=== PATIENT | male | born 1955 | race Hispanic/Latino ===

== ENCOUNTER 2020-09-03 16:52 | Inpatient (IN) | payer OTHER ==
[~2020-09-03] VITALS: Ht 167.6 cm; Wt 77.1 kg
[2020-09-03 17:48] VITALS: BP 147/87
[2020-09-03] MEDS ORDERED: LISI20TA21 PO (18:17)
[2020-09-03] MEDS ORDERED: METF500T17 PO (18:17)
[2020-09-03] MEDS ORDERED: GLUCAGEN IV STA (18:44)
--- NOTE | 2020-09-03 18:59 | PCM.HP ---
History of Present Illness History of Present Illness Pt Reji Garibay is a 64 y.o. male w/ PMH: HTN, HLD, DM II that was transferred from an ED in [place] for PNA and suspected COVID infection. Pt is niuean speaking only so history obtained from scientist engineer. [facility] from ED in [place] called stating pt was hypoxic on arrival to the ED at 81% of RA with positive COVID infection. Pt requested to be transferred to a hospital closer to home. Case was discussed with CM and administration agreed to transfer. Upon arrival, it was noted that pt was never tested for COVID infection although CXR showed PNA, he was presumed positive. Pt reports c/o: anorexia and weakness x 3 week duration. He works at a [employer] in [place] and denies any sick contacts. He denies N/V, diarrhea, or constipation. He also denies fever, SOB, or cough. No additional complaints at this time. Past Medical History Cardiac: HTN, Other (HLD) Endocrine: Diabetes Past Surgical History: Appendectomy Past Social History Smoke: No Alcohol: none Drugs: None Lives: with Family Review of Systems Constitutional: Weakness, Malaise; No: Fever, Chills, Sweats Eyes: No: Redness ENT: No: Nose discharge, Nose congestion Respiratory: No: Cough, Dry, Shortness of breath, SOB with excertion, Wheezing Cardiovascular: No: Chest Pain, Palpitations, Edema, Lt Headedness Gastrointestinal: Other (anorexia); No: Nausea, Vomiting, Abdominal Pain, Di arrhea, Constipation, Melena, Hematochezia Genitourinary: No Dysuria, No Frequency, No Incontinence, No Hematuria Musculoskeletal: No: back pain Skin: No: Rash, Lesions, Bruising Neurological: Weakness Allergies: Coded Allergies: No Known Allergies (Unverified , 09/03/20) Scheduled Lisinopril (Lisinopril), 1 TAB PO BID, (Reported) Metformin Hcl (Metformin Hcl), 1,000 MG PO BID, (Reported) VTE VTE Risk Total Score: 2 VTE Risk Score VTE Risk: Score 0-1 = Low Risk (Aggressive mobilization; early ambulation; no VTE prophylaxis required) Score 2: Moderate Risk (Intermittent/Pneumatic Compression Device OR Lovenox/Heparin/Coumadin) Score 3-4: High Risk (Intermittent/Pneumatic Compression Device AND Lovenox/Heparin/Coumadin) Score > or =5: Highest Risk (Intermittent/Pneumatic Compression Device AND Lovenox/Heparin/Coumadin) VTE VTE Present on Admission: No Currently receiving anticoagul: No VTE Risk Total Score: 2 Exam Vital Signs Vital Signs Date Time Temp Pulse Resp B/P (MAP) Pulse Ox O2 Delivery O2 Flow Rate FiO2 09/03/20 18:17 Nasal Cannula 2.00 09/03/20 17:48 101.1 103 19 147/87 (107) 88 General Appearance: Alert, Oriented X3, Cooperative, No acute distress HEENT: Atraumatic, Other (dry mucous membranes) Respiratory: Clear to auscultation, Normal air movement Cardiovascular: Regular rate, Normal S1, Normal S2 Abdominal: Normal bowel sounds, Soft, No tenderness Extremities: No clubbing, No cyanosis, No edema, Normal pulses Skin: No rash, No breakdown, No lesions Neuro: Normal gait, Normal speech Psych/Mental Status: Mental status NL, Mood NL Assessment/Plan Assessment/Plan Assessment/Plan Pt Reji Garibay is a 64 y.o. male w/ PMH: HTN, HLD, DM II that was transferred from an ED in [place] for PNA and suspected COVID infection. Upon arrival, it was noted that pt was never tested for COVID infection although CXR showed PNA, he was presumed positive. 1) B/l PNA -Will start on Rocephin and Azithromycin. 2) Suspected COVID -PCR test ordered; awaiting results -Will hold off on starting antiviral and steroids at this time until results come back 3) HTN -Will resume home dose of Lisinopril 20 mg 4) DM II -ISS -Will check HgbA1c in am -Will hold home dose of Metformin 5) HLD -Unknown home medications. -Will check lipid panel, and will start statin if needed. 6) Diet-ADA diet 7) DVT prophylaxis-Heparin 8) Code status-Full Code -Pt was seen and examined at bedside. All labs and imaging personally reviewed b y me. -Cased discussed w/ ED attending. YARELY GRIGGS DO Sep 03, 2020 18:59
[2020-09-03] MEDS ORDERED: MORPHINE SULFATE IV PRN (19:00)
[2020-09-03] MEDS ORDERED: DEXTROSE 50%-WATER SYRINGE IV PRN (19:00)
[2020-09-03] MEDS ORDERED: D5W 1000ML 1,000 ML IV PRN (19:00)
[2020-09-03] MEDS ORDERED: TYLENOL PO PRN (19:00)
[2020-09-03] MEDS ORDERED: ROCEPHIN 1,000 MG in NS 100ML 100 ML IV SCH (19:30)
[2020-09-03] MEDS ORDERED: ROCEPHIN ONE (19:35)
[2020-09-03] MEDS ORDERED: NS 100ML 100 ML IV ONE (19:35)
[2020-09-03] MEDS: NS 1000ML 1,000 ML IV SCH (19:39)
[2020-09-03 20:15] VITALS: BP 126/77
[2020-09-03] MEDS ORDERED: ZITHROMAX 500 MG in NS 250ML 250 ML IV SCH (20:30)
[2020-09-03] MEDS: HUMALOG SQ SCH (21:10)
[2020-09-03] MEDS: HEPARIN SQ SCH (21:11)
[2020-09-03] MEDS: ZESTRIL PO SCH (21:12)
[2020-09-04] VITALS (8 sets, daily range): BP systolic 114–139; BP diastolic 65–78
[2020-09-04 04:56] LABS: BASOPHIL % 0.2 % (0.0-0.2); LYMPHOCYTES # 0.79 10^3/uL1 (1.0-4.8); LYMPHOCYTES % 9.7 % (24.0-44.0); MONOCYTES # 0.5 10^3/uL (0.3-0.8); NEUTROPHIL # 6.8 10^3/uL (1.8-7.7); NEUTROPHILS % 83.5 % (41.0-85.0); PLATELET COUNT 185 10^3/uL (150-400)
[2020-09-04 05:35] LABS: CALCIUM 8.3 mg/dL (8.4-10.5)
[2020-09-04] MEDS: HEPARIN SQ SCH ×2 (05:59→14:00)
[2020-09-04] MEDS: HUMALOG SQ SCH ×4 (07:30→21:00)
[2020-09-04] MEDS: VITAMIN C PO SCH ×2 (08:22→20:22)
[2020-09-04] MEDS: ZESTRIL PO SCH ×2 (08:22→20:23)
[2020-09-04] MEDS ORDERED: ZINC SULFATE PO SCH (09:00)
[2020-09-04] MEDS: NS 1000ML 1,000 ML IV SCH ×2 (09:20→22:40)
--- NOTE | 2020-09-04 13:56 | NUR ---
Oral temperature of 100.5 reported to provider. No new orders at this time.
--- NOTE | 2020-09-04 16:46 | DIREP ---
PROCEDURE:CHEST 2 VIEWS COMPARISON:[facility], CR, XRAY CHEST SINGLE VW, 09/03/2020, 12:11 PM. INDICATIONS:Hypoxemia FINDINGS: LUNGS/PLEURA:Ill-defined opacities within the bilateral hemithoraces do appear to be slightly worsening when compared to the previous study, particularly within the peripheral aspect of the left aggie thorax. Findings would suggest multifocal infectious or inflammatory pneumonitis. There is no sizable pleural effusion. No pneumothorax. VASCULATURE:Normal. Unremarkable pulmonary vasculature. CARDIAC:Normal. No cardiac silhouette abnormality or cardiomegaly. MEDIASTINUM:Normal. No visible mass or adenopathy. BONES:Degenerative changes of the spine. OTHER:Negative. CONCLUSION: 1. Slightly worsening airspace disease would suggest multifocal infectious or inflammatory pneumonitis, including potential COVID-19 pneumonitis. Dictated by: Surya Tinoco M.D. On 09/04/2020 at 04:43 PM
[2020-09-04] MEDS ORDERED: MORPHINE SULFATE IV PRN (19:28)
--- NOTE | 2020-09-04 20:04 | PRM.PN ---
Subjective Subjective Date: Sep 04, 2020 Time: 20:04 Subjective Pt s/e this AM at bedside. overall he is doing well. He denies any symptoms of shob, cp, abdominal pain, n/v/d/c, LH/dizziness, palpitations, or other acute symptoms. However, despite lack of symptoms, he is in fact hypoxemic, and qu ickly dipped down to 87% on RA when his O2 was stopped during our discussion. He denies any recent fever/chills, swelling, orthopnea, smoking history, chest pain, environmental or occupational exposures, or other chronic symptoms. Review of Systems Other Review of systems including general, HEENT, neck, cardiopulmonary, GI, , neuro-musculoskeletal, hematologic, oncologic, endocrinology, infectious disease, dermatologic and psychiatric were reviewed with the patient and are negative unless otherwise noted in the HPI. Allergies: Coded Allergies: No Known Allergies (Unverified , 09/03/20) Scheduled Lisinopril (Lisinopril), 1 TAB PO BID, (Reported) Metformin Hcl (Metformin Hcl), 1,000 MG PO BID, (Reported) Objective Vitals and I/O Vital Sign - Last 24 Hours 09/04/20 09/04/20 09/04/20 09/04/20 08:04 08:22 08:23 08:41 Temp 100.1 99.2 Pulse 82 88 Resp 18 34 B/P (MAP) 115/67 (83) 115/67 130/71 (90) Pulse Ox 95 90 O2 Delivery Nasal Canula Nasal Cannula O2 Flow Rate 6.00 6.00 09/04/20 09/04/20 09/04/20 09/04/20 09:20 09:50 09:52 09:54 Temp 99.4 Pulse 88 88 Resp 22 32 32 Pulse Ox 90 97 O2 Delivery Nasal Cannula Nasal Cannula Nasal Canula O2 Flow Rate 5.00 5.00 5.00 FiO2 40 09/04/20 09/04/20 09/04/20 09/04/20 10:53 12:16 13:55 15:31 Temp 98.8 98.3 100.5 98.3 Pulse 81 Resp 17 B/P (MAP) 124/67 (86) Pulse Ox 94 93 92 93 O2 Delivery Nasal Canula Nasal Canula Nasal Canula O2 Flow Rate 3.00 4.00 3.00 09/04/20 17:03 Temp 97.9 Pulse 72 Resp 18 B/P (MAP) 114/65 (81) Pulse Ox 95 General: Alert, Oriented X3, Cooperative, No acute distress HEENT: Atraumatic, Other (dry mucous membranes; poor dentition ) Neck: Supple Lungs: Clear to auscultation, Normal air movement Heart: Regular rate, Normal S1, Normal S2 Abdomen: Normal bowel sounds, Soft, No tenderness Extremities: No clubbing, No cyanosis, No edema, Normal pulses Skin: No rashes, No breakdown, No significant lesion Neuro: Normal speech, Normal tone Psych/Mental Status: Mental status NL, Mood NL All Results(Lab/Rad) Laboratory Tests Test 09/03/20 21:02 09/04/20 04:47 09/04/20 05:59 09/04/20 07:15 Bedside Glucose 164 120 123 White Blood Count 8.1 10^3/uL Red Blood Count 4.89 10^6/uL Hemoglobin 14.2 g/dL Hematocrit 40.7 % Mean Corpuscular Volume 83.2 fL Mean Corpuscular Hemoglobin 29.0 pg Mean Corpuscular Hemoglobin Concent 34.9 g/dL Red Cell Distribution Width 12.0 % Platelet Count 185 10^3/uL Mean Platelet Volume 9.6 fL Neutrophils (%) (Auto) 83.5 % Lymphocytes (%) (Auto) 9.7 % Monocytes (%) (Auto) 6.0 % Neutrophils # (Auto) 6.8 10^3/uL Lymphocytes # (Auto) 0.79 10^3/uL1 Monocytes # (Auto) 0.5 10^3/uL Absolute Immature Granulocyte (auto 0.05 10^3 u/L Absolute Eosinophils (auto) 0.0 10^3/uL Immature Granulocytes % 0.60 % Eosinophils % 0.0 % Basophils % 0.2 % Basophils # 0.0 10^3/uL Sodium Level 132 mmol/L Potassium Level 3.6 mmol/L Chloride Level 97.0 mmol/L Carbon Dioxide Level 26.0 mmol/L Anion Gap 12.6 Blood Urea Nitrogen 21 mg/dL Creatinine 1.18 mg/dL Estimated GFR () 75.2 Est GFR (CKD-EPI)(Non-Afr Swiss) 62.1 BUN/Creatinine Ratio 17.0 Glucose Level 118 mg/dL Hemoglobin A1c 8.0 % Calcium Level 8.3 mg/dL Total Bilirubin 0.7 mg/dL Aspartate Amino Transf (AST/SGOT) 55 U/L Alanine Aminotransferase (ALT/SGPT) 37 U/L Alkaline Phosphatase 40 U/L Total Protein 6.5 g/dL Albumin 2.3 g/dL Globulin 4.2 Albumin/Globulin Ratio 0.547 Triglycerides Level 65 mg/dL Cholesterol Level 76 mg/dL LDL Cholesterol, Calculated 26.0 VLDL Cholesterol, Calculated 13.0 HDL Cholesterol 37 mg/dL Cholesterol Ratio (LDL/HDL) 0.7 Cholesterol/HDL Ratio [id number] Test 09/04/20 11:37 09/04/20 12:22 09/04/20 16:36 Bedside Glucose 159 131 D-Dimer 1.85 mg/L Troponin I < 0.02 ng/mL Pro-B-Type Natriuretic Peptide 97 pg/mL Current Medications Medications (Trade) Dose Ordered Sig/Adrianna Route PRN Reason Start Time Stop Time Status Last Admin Dose Admin Acetaminophen (Tylenol) 325 mg Q4H PRN PO PAIN 1 - 3 09/03/20 19:00 10/03/20 18:59 Morphine Sulfate (Morphine Sulfate) 2 mg Q4H PRN IV PAIN 4 - 6 09/03/20 19:00 09/04/20 19:28 DC Insulin Human Lispro (Humalog) 0-140 0 Units 141-200... ACHS SQ 09/03/20 21:00 10/03/20 20:59 09/04/20 11:30 Dextrose 1,000 ml @ 100 mls/hr Q10H PRN IV HYPOGLYCEMIA 09/03/20 19:00 10/03/20 18:59 Dextrose (Dextrose 50%-Water Syringe) 25 ml STAT PRN IV HYPOGLYCEMIA 09/03/20 19:00 10/03/20 18:59 Glucagon (Glucagen) 1 mg STAT STAT IV 09/03/20 18:44 09/03/20 18:56 DC Heparin Sodium (Porcine) (Heparin) 5,000 unit Q8HR SQ 09/03/20 22:00 10/03/20 21:59 09/04/20 14:00 Lisinopril (Zestril) 20 mg BID PO 09/03/20 21:00 10/03/20 20:59 09/04/20 08:22 Azithromycin 500 mg/Sodium Chloride 250 ml @ 175 mls/hr Q24HRS IV 09/03/20 20:30 09/04/20 08:15 DC 09/03/20 21:11 Ceftriaxone Sodium 1000 mg/ Sodium Chloride 100 ml @ 100 mls/hr Q24HRS IV 09/03/20 19:30 09/04/20 08:15 DC 09/03/20 19:39 Sodium Chloride 1,000 ml @ 75 mls/hr [id number] IV 09/03/20 20:00 10/03/20 19:59 09/04/20 09:20 Ceftriaxone Sodium (Rocephin) 1,000 mg STK-MED ONCE .ROUTE 09/03/20 19:35 09/03/20 19:35 DC Sodium Chloride 100 ml @ ud STK-MED ONCE IV 09/03/20 19:35 09/03/20 19:36 DC Zinc Sulfate (Zinc Sulfate) 220 mg DAILY PO 09/04/20 09:00 10/04/20 08:59 09/04/20 08:22 Ascorbic Acid (Vitamin C) 500 mg BID PO 09/04/20 09:00 10/04/20 08:59 09/04/20 08:22 Morphine Sulfate (Morphine Sulfate) 2 mg Q4H PRN IV PAIN 4 - 6 09/04/20 19:28 10/03/20 18:59 Assessment/Plan Assessment/Plan Assessment/Plan Pt Reji Garibay is a 64 y.o. male w/ PMH: HTN, HLD, DM II that was transferred from an ED in [place] for PNA and suspected COVID infection. Upon arrival, it was noted that pt was never tested for COVID infection although CXR showed PNA, he was presumed positive. # Acute Hypoxemic Respiratory Failure # Likely Community Acquired PNA - Pt transferred for "covid" but is actually covid negative - CXR showing multifocal infiltrates, but these are somewhat non-specific - procal obtained Sep 04 is elevated at 0.7, indicating possible bacterial infection - rocephin/azithro stopped for some reason; will restart - there was concern for PE as a cause for his hypoxemia and D-dimer was elevated at 1.85; will obtain CTA Chest to rule out PE - will also start therapeutic Lovenox until VTE can be definitively ruled out. # HTN - Lisinopril 20 mg # DM II - SSI - hold home anti-hyperglycemics 5) HLD - cholesterol and LDL on lipid panel are actually very low - will not start statin; Pt can resume home medications on discharge VTE ppx: Therapeutic Lovenox GI ppx: n/a Diet: diabetic CODE: forensic toxicologist spent: > 35 min spent in chart review, patient evaluation, coordination of care, and documentation BAMBI KAUR MD Sep 04, 2020 20:04
[2020-09-04] MEDS: LOVENOX SQ SCH ×2 (20:21→20:32)
--- NOTE | 2020-09-04 22:14 | NUR ---
CRITICAL LAB PROCAL 0.74
[2020-09-05] MEDS ORDERED: ZITHROMAX PO ONE
[2020-09-05] MEDS: ROCEPHIN 2,000 MG in NS 100ML 100 ML IV SCH
[2020-09-05] MEDS ORDERED: ROCEPHIN ONE (00:25)
[2020-09-05] MEDS ORDERED: NS 100ML 100 ML IV ONE (00:26)
[2020-09-05 00:50] VITALS: BP 137/84
--- NOTE | 2020-09-05 01:02 | NUR ---
LOW SPO2 Pt found to be lying in bed with SPO2 of 82% on 3.5L NC. RN increased O2 to 6L NC. Pt appears to be in no apparent respiratory distress. Lung sounds clear and all other vital signs WNL. RN sat pt upright in high fowlers and encouraged pt to cough and deep breathe. RN placed pt on venti mask but that showed no improvement in oxygen saturation. Respiratory called. RN placed pt on 15L NRB and pt now showing improvement in o2 saturation. Respiratory currently at bedside. Pt SPO2 96% on 15L NRB. Encouraged pt to cough and deep breathe and to notify staff if he is experiencing any difficulty breathing. Will continue to monitor.
[2020-09-05 04:40] LABS: BASOPHIL % 0.1 % (0.0-0.2); EOSINOPHIL % 0.1 % (0.0-5.0); LYMPHOCYTES # 0.89 10^3/uL1 (1.0-4.8); LYMPHOCYTES % 10.2 % (24.0-44.0); MEAN CORP HGB 29.4 pg (26-34); MONOCYTES # 0.5 10^3/uL (0.3-0.8); MONOCYTES % 5.5 % (5.0-12.0); NEUTROPHIL # 7.3 10^3/uL (1.8-7.7); NEUTROPHILS % 83.5 % (41.0-85.0); PLATELET COUNT 226 10^3/uL (150-400)
[2020-09-05 04:58] LABS: CALCIUM 8.1 mg/dL (8.4-10.5); CARBON DIOXIDE 24.3 mmol/L (20.0-32)
[2020-09-05 05:13] VITALS: BP 129/76
[2020-09-05] MEDS: HUMALOG SQ SCH ×4 (07:30→20:28)
[2020-09-05] MEDS: LOVENOX SQ SCH (08:20)
[2020-09-05] MEDS: ZESTRIL PO SCH ×2 (08:20→20:19)
--- NOTE | 2020-09-05 08:28 | DIREP ---
PROCEDURE:CTA CHEST COMPARISON:None. INDICATIONS:evaluate for PE TECHNIQUE:Post contrast axial images through the chest with multiplanar MIP/3D reconstructions. FINDINGS: PULMONARY ARTERIES:Adequately opacified. No filling defect to suggest pulmonary embolus. LUNGS:Diffuse patchy peripheral ground-glass airspace opacities. PLEURA:Normal. CARDIAC:Normal size. Coronary atherosclerotic change. THORACIC AORTA:Mild atherosclerotic cyst. MEDIASTINUM:Mild lymphadenopathy. THYROID:Normal. BONES:Mild degenerative changes. OTHER:No additional findings. CONCLUSION:1. No CT evidence of pulmonary embolus. 2. Patchy diffuse airspace opacities, consistent with multi lobar pneumonia to include from atypical organisms such as COVID-19. Dictated by: Austin Morris M.D. on 09/05/2020 at 08:25 AM
[2020-09-05 08:58] VITALS: BP 146/84
[2020-09-05] MEDS: NS 1000ML 1,000 ML IV SCH (12:26)
--- NOTE | 2020-09-05 12:50 | DIET.OP ---
Nutrition Asmt/Malnutrit 2-17 Actual Date of Review: Sep 05, 2020 Nutritional Screening: Nutritional Screening (mild fat and muscle loss noted at admission assessment ) Diagnosis: Acute Hypoxemic Respiratory Failure Pertinent Medical Hx/Surgical: HTN, HLD, T2DM Subjective Information: telehealth assessement - pt reported anorexia and weakness x 3 weeks. Denies abdominal pain, n/v/d/c. Denies any recent wt loss. A1c is 8. BG well controlled today at 99-104 mg/dl. Current Diet Order/Nutrition S: 1800 elkin ADA Patient /S.O: Not Indicated Pertinent Meds Current Medications Medications (Trade) Dose Ordered Sig/Adrianna PRN Reason Start Time Stop Time Status Last Admin Acetaminophen (Tylenol) 325 mg Q4H PRN PAIN 1 - 3 09/03/20 19:00 10/03/20 18:59 Acetaminophen (Tylenol) 1,000 mg Q6H PRN PAIN 1 - 3 09/05/20 12:00 10/05/20 11:59 Albuterol Sulfate (Ventolin Hfa) 2 inh RTQ4 09/05/20 13:00 10/05/20 12:59 Ascorbic Acid (Vitamin C) 1,000 mg BID 09/05/20 21:00 10/05/20 20:59 Azithromycin (Zithromax) 250 mg DAILY 09/05/20 19:00 09/09/20 18:59 Ceftriaxone Sodium 2000 mg/ Sodium Chloride 100 ml @ 100 mls/hr Q24HRS 09/05/20 00:00 10/05/20 00:00 09/05/20 00:00 Dextrose 1,000 ml @ 100 mls/hr Q10H PRN HYPOGLYCEMIA 09/03/20 19:00 10/03/20 18:59 Dextrose (Dextrose 50%-Water Syringe) 25 ml STAT PRN HYPOGLYCEMIA 09/03/20 19:00 10/03/20 18:59 Enoxaparin Sodium (Lovenox) 40 mg DAILY 09/06/20 09:00 10/04/20 20:29 Insulin Human Lispro (Humalog) 0-140 0 Units 141-200... ACHS 09/03/20 21:00 10/03/20 20:59 09/04/20 21:00 Lisinopril (Zestril) 20 mg BID 09/03/20 21:00 10/03/20 20:59 09/05/20 08:20 Morphine Sulfate (Morphine Sulfate) 2 mg Q4H PRN PAIN 4 - 6 09/04/20 19:28 10/03/20 18:59 Sodium Chloride 1,000 ml @ 75 mls/hr [id number] 09/03/20 20:00 10/03/20 19:59 09/05/20 12:26 Zinc Sulfate (Zinc Sulfate) 220 mg BID 09/05/20 21:00 10/05/20 20:59 Pertinent Labs Laboratory Tests Test 09/03/20 18:04 09/03/20 18:37 09/03/20 21:02 09/04/20 04:47 Bedside Glucose 104 164 Nasal Adenovirus (PCR) NotDetected Nasal Coronavirus Type 229E (PCR) NotDetected Nasal Coronavirus Type HKU1 (PCR) NotDetected Nasal Coronavirus Type NL63 (PCR) NotDetected Nasal Coronavirus Type OC43 (PCR) NotDetected Nasal Enterovirus/Rhinovirus (PCR) NotDetected Nasal Influenza Type A (H1) (PCR) NotDetected Nasal Influenza Type A (H3) (PCR) NotDetected Nasal Swab Influenza Virus B (PCR) NotDetected Nasal Parainfluenza Type 1 (PCR) NotDetected Nasal Parainfluenza Type 2 (PCR) NotDetected Nasal Parainfluenza Type 3 (PCR) NotDetected Nasal Parainfluenza Type 4 (PCR) NotDetected Nasal Resp Syncytial Virus (PCR) NotDetected Nasal Bordetella pertussis DNA (PCR NotDetected Nasal Chlamydophila pneumoniae (PCR NotDetected Nasal Human Metapneumovirus (PCR) NotDetected Nasal Mycoplasma pneumoniae (PCR) NotDetected Nasal SARS-CoV-2 (PCR) NotDetected Influenza Type A (H1N1/09) (PCR) NotDetected White Blood Count 8.1 10^3/uL Red Blood Count 4.89 10^6/uL Hemoglobin 14.2 g/dL Hematocrit 40.7 % Mean Corpuscular Volume 83.2 fL Mean Corpuscular Hemoglobin 29.0 pg Mean Corpuscular Hemoglobin Concent 34.9 g/dL Red Cell Distribution Width 12.0 % Platelet Count 185 10^3/uL Mean Platelet Volume 9.6 fL Neutrophils (%) (Auto) 83.5 % Lymphocytes (%) (Auto) 9.7 % Monocytes (%) (Auto) 6.0 % Neutrophils # (Auto) 6.8 10^3/uL Lymphocytes # (Auto) 0.79 10^3/uL1 Monocytes # (Auto) 0.5 10^3/uL Absolute Immature Granulocyte (auto 0.05 10^3 u/L Absolute Eosinophils (auto) 0.0 10^3/uL Immature Granulocytes % 0.60 % Eosinophils % 0.0 % Basophils % 0.2 % Basophils # 0.0 10^3/uL Sodium Level 132 mmol/L Potassium Level 3.6 mmol/L Chloride Level 97.0 mmol/L Carbon Dioxide Level 26.0 mmol/L Anion Gap 12.6 Blood Urea Nitrogen 21 mg/dL Creatinine 1.18 mg/dL Estimated GFR () 75.2 Est GFR (CKD-EPI)(Non-Afr Cuban) 62.1 BUN/Creatinine Ratio 17.0 Glucose Level 118 mg/dL Hemoglobin A1c 8.0 % Calcium Level 8.3 mg/dL Total Bilirubin 0.7 mg/dL Aspartate Amino Transf (AST/SGOT) 55 U/L Alanine Aminotransferase (ALT/SGPT) 37 U/L Alkaline Phosphatase 40 U/L Total Protein 6.5 g/dL Albumin 2.3 g/dL Globulin 4.2 Albumin/Globulin Ratio 0.547 Triglycerides Level 65 mg/dL Cholesterol Level 76 mg/dL LDL Cholesterol, Calculated 26.0 VLDL Cholesterol, Calculated 13.0 HDL Cholesterol 37 mg/dL Cholesterol Ratio (LDL/HDL) 0.7 Cholesterol/HDL Ratio [id number] Test 09/04/20 05:59 09/04/20 07:15 09/04/20 11:37 09/04/20 12:22 Bedside Glucose 120 123 159 D-Dimer 1.85 mg/L Troponin I < 0.02 ng/mL Pro-B-Type Natriuretic Peptide 97 pg/mL Test 09/04/20 16:36 09/04/20 20:39 09/04/20 20:54 09/05/20 04:05 Bedside Glucose 131 158 Procalcitonin 0.74 ng/mL White Blood Count 8.7 10^3/uL Red Blood Count 4.49 10^6/uL Hemoglobin 13.2 g/dL Hematocrit 38.0 % Mean Corpuscular Volume 84.6 fL Mean Corpuscular Hemoglobin 29.4 pg Mean Corpuscular Hemoglobin Concent 34.7 g/dL Red Cell Distribution Width 12.0 % Platelet Count 226 10^3/uL Mean Platelet Volume 9.6 fL Neutrophils (%) (Auto) 83.5 % Lymphocytes (%) (Auto) 10.2 % Monocytes (%) (Auto) 5.5 % Neutrophils # (Auto) 7.3 10^3/uL Lymphocytes # (Auto) 0.89 10^3/uL1 Monocytes # (Auto) 0.5 10^3/uL Absolute Immature Granulocyte (auto 0.05 10^3 u/L Absolute Eosinophils (auto) 0.0 10^3/uL Immature Granulocytes % 0.60 % Eosinophils % 0.1 % Basophils % 0.1 % Basophils # 0.0 10^3/uL Sodium Level 136 mmol/L Potassium Level 3.5 mmol/L Chloride Level 103.0 mmol/L Carbon Dioxide Level 24.3 mmol/L Anion Gap 12.2 Blood Urea Nitrogen 20 mg/dL Creatinine 1.01 mg/dL Estimated GFR () 90.0 Est GFR (CKD-EPI)(Non-Afr Cuban) 74.4 BUN/Creatinine Ratio 19.0 Glucose Level 104 mg/dL Calcium Level 8.1 mg/dL Phosphorus Level 2.5 mg/dL Magnesium Level 2.2 mg/dL Total Bilirubin 0.5 mg/dL Aspartate Amino Transf (AST/SGOT) 46 U/L Alanine Aminotransferase (ALT/SGPT) 29 U/L Alkaline Phosphatase 38 U/L Total Protein 6.1 g/dL Albumin 2.1 g/dL Globulin 4.0 Albumin/Globulin Ratio 0.525 Test 09/05/20 05:40 09/05/20 08:09 09/05/20 09:30 09/05/20 10:24 Bedside Glucose 99 95 Nasal Adenovirus (PCR) NotDetected Nasal Coronavirus Type 229E (PCR) NotDetected Nasal Coronavirus Type HKU1 (PCR) NotDetected Nasal Coronavirus Type NL63 (PCR) NotDetected Nasal Coronavirus Type OC43 (PCR) NotDetected Nasal Enterovirus/Rhinovirus (PCR) NotDetected Nasal Influenza Type A (H1) (PCR) NotDetected Nasal Influenza Type A (H3) (PCR) NotDetected Nasal Swab Influenza Virus B (PCR) NotDetected Nasal Parainfluenza Type 1 (PCR) NotDetected Nasal Parainfluenza Type 2 (PCR) NotDetected Nasal Parainfluenza Type 3 (PCR) NotDetected Nasal Parainfluenza Type 4 (PCR) NotDetected Nasal Resp Syncytial Virus (PCR) NotDetected Nasal Bordetella pertussis DNA (PCR NotDetected Nasal Chlamydophila pneumoniae (PCR NotDetected Nasal Human Metapneumovirus (PCR) NotDetected Nasal Mycoplasma pneumoniae (PCR) NotDetected Nasal SARS-CoV-2 (PCR) DETECTED Influenza Type A (H1N1/) (PCR) NotDetected Erythrocyte Sedimentation Rate 78 mm/hr C-Reactive Protein 13.99 mg/dL HIV-1 Antibody NON-REACTIVE HIV-2 Antibody NON-REACTIVE Height (Feet): 5 Height (Inches): 6 Current Weight: 164 %IBW: 117 Recent Weight Change: No Weight Status: Overweight GI Symptoms: Last BM (09/04), None Food Allergies: No Cultural/Ethnic/Congregational Marylou: none identified Current %PO: Fair(50-74%) BEE in Kcals: Use Current Weight Calories/Kcals/Kg: MSJ 1.2-1.4 Kcals Calculated: 9605-4539 kcal Protein: Use Current Weight Protein g/k.8-1 g/kg Protein Calculated: 60-75g Fluid: ml: 2781-7582 ml or 1 ml/kcal Nutritional Problem: No Cur. Nutritional Probl Expected Outcomes RD to monitor po intake to ensure it is adequate. Goal: 75-100% po intake of most meals the next 3 days. Discharge on consistent carb diet. RD to provide DM education when appropriate. Malnutrtion/Nutrition Risk Edu: No MD Notificiation Needed?: No Jessica Morris Sep 05, 2020 12:50
[2020-09-05] MEDS: VENTOLIN HFA IH SCH ×3 (13:00→20:40)
[2020-09-05 17:37] VITALS: BP 144/82
[2020-09-05 19:46] VITALS: BP 152/92
[2020-09-05] MEDS: ZITHROMAX PO SCH (20:18)
[2020-09-05] MEDS: ZINC SULFATE PO SCH (20:18)
[2020-09-05] MEDS: VITAMIN C PO SCH (20:18)
--- NOTE | 2020-09-05 23:54 | PRM.PN ---
Subjective Subjective Date: Sep 05, 2020 Time: 23:53 Subjective Pt s/e this AM at bedside. overall he is doing fair. One of the nursing staff assisted with translation. He denies any worsened shob, and denies cp, cough, abdominal pain, n/v/d/c, or other acute symptoms. However, his O2 requirements are substantial and he is borderline even on 15L non-rebreather. Review of Systems Other Review of systems including general, HEENT, neck, cardiopulmonary, GI, , neuro-musculoskeletal, hematologic, oncologic, endocrinology, infectious disease, dermatologic and psychiatric were reviewed with the patient and are negative unless otherwise noted in the HPI. Allergies: Coded Allergies: No Known Allergies (Unverified , 09/03/20) Scheduled Lisinopril (Lisinopril), 1 TAB PO BID, (Reported) Metformin Hcl (Metformin Hcl), 1,000 MG PO BID, (Reported) Objective Vitals and I/O Vital Sign - Last 24 Hours 09/05/20 09/05/20 09/05/20 09/05/20 08:20 08:58 09:35 11:33 Temp 98.7 Pulse 86 86 Resp 19 19 B/P (MAP) 129/76 146/84 (104) Pulse Ox 100 100 O2 Delivery Non-Rebreather Non-Rebreather O2 Flow Rate 15.00 15.00 FiO2 96 09/05/20 09/05/20 09/05/20 09/05/20 14:45 14:45 17:37 19:46 Temp 99.2 98.0 Pulse 86 86 86 88 Resp 19 19 19 18 B/P (MAP) 144/82 (102) 152/92 (112) Pulse Ox 100 100 97 100 09/05/20 09/05/20 09/05/20 09/05/20 20:19 20:40 20:40 20:40 Pulse 88 88 88 Resp 18 18 18 B/P (MAP) 152/92 Pulse Ox 93 93 93 O2 Delivery Non-Rebreather O2 Flow Rate 15.00 FiO2 100 Intake and Output 09/05/20 07:00 Intake Total 1136 ml Balance 1136 ml General: Alert, Oriented X3, Cooperative, No acute distress HEENT: Atraumatic, PERRLA, Other (dry mucous membranes; poor dentition ) Neck: Supple, No JVD Lungs: Other (diminished bilaterally, but otherwise clear of rales/rhonchi/wheezing) Heart: Regular rate, Normal S1, Normal S2 Abdomen: Normal bowel sounds, Soft, No tenderness Extremities: No clubbing, No cyanosis, No edema, Normal pulses Skin: No rashes, No breakdown, No significant lesion Neuro: Normal speech, Strength at 5/5 X4 ext, Normal tone, Sensation intact Psych/Mental Status: Mental status NL, Mood NL All Results(Lab/Rad) Laboratory Tests Test 09/03/20 21:02 09/04/20 04:47 09/04/20 05:59 09/04/20 07:15 Bedside Glucose 164 120 123 White Blood Count 8.1 10^3/uL Red Blood Count 4.89 10^6/uL Hemoglobin 14.2 g/dL Hematocrit 40.7 % Mean Corpuscular Volume 83.2 fL Mean Corpuscular Hemoglobin 29.0 pg Mean Corpuscular Hemoglobin Concent 34.9 g/dL Red Cell Distribution Width 12.0 % Platelet Count 185 10^3/uL Mean Platelet Volume 9.6 fL Neutrophils (%) (Auto) 83.5 % Lymphocytes (%) (Auto) 9.7 % Monocytes (%) (Auto) 6.0 % Neutrophils # (Auto) 6.8 10^3/uL Lymphocytes # (Auto) 0.79 10^3/uL1 Monocytes # (Auto) 0.5 10^3/uL Absolute Immature Granulocyte (auto 0.05 10^3 u/L Absolute Eosinophils (auto) 0.0 10^3/uL Immature Granulocytes % 0.60 % Eosinophils % 0.0 % Basophils % 0.2 % Basophils # 0.0 10^3/uL Sodium Level 132 mmol/L Potassium Level 3.6 mmol/L Chloride Level 97.0 mmol/L Carbon Dioxide Level 26.0 mmol/L Anion Gap 12.6 Blood Urea Nitrogen 21 mg/dL Creatinine 1.18 mg/dL Estimated GFR () 75.2 Est GFR (CKD-EPI)(Non-Afr Sri [place]ankan) 62.1 BUN/Creatinine Ratio 17.0 Glucose Level 118 mg/dL Hemoglobin A1c 8.0 % Calcium Level 8.3 mg/dL Total Bilirubin 0.7 mg/dL Aspartate Amino Transf (AST/SGOT) 55 U/L Alanine Aminotransferase (ALT/SGPT) 37 U/L Alkaline Phosphatase 40 U/L Total Protein 6.5 g/dL Albumin 2.3 g/dL Globulin 4.2 Albumin/Globulin Ratio 0.547 Triglycerides Level 65 mg/dL Cholesterol Level 76 mg/dL LDL Cholesterol, Calculated 26.0 VLDL Cholesterol, Calculated 13.0 HDL Cholesterol 37 mg/dL Cholesterol Ratio (LDL/HDL) 0.7 Cholesterol/HDL Ratio [id number] Test 09/04/20 11:37 09/04/20 12:22 09/04/20 16:36 Bedside Glucose 159 131 D-Dimer 1.85 mg/L Troponin I < 0.02 ng/mL Pro-B-Type Natriuretic Peptide 97 pg/mL Current Medications Medications (Trade) Dose Ordered Sig/Adrianna Route PRN Reason Start Time Stop Time Status Last Admin Dose Admin Acetaminophen (Tylenol) 325 mg Q4H PRN PO PAIN 1 - 3 09/03/20 19:00 10/03/20 18:59 Morphine Sulfate (Morphine Sulfate) 2 mg Q4H PRN IV PAIN 4 - 6 09/03/20 19:00 09/04/20 19:28 DC Insulin Human Lispro (Humalog) 0-140 0 Units 141-200... ACHS SQ 09/03/20 21:00 10/03/20 20:59 09/04/20 11:30 Dextrose 1,000 ml @ 100 mls/hr Q10H PRN IV HYPOGLYCEMIA 09/03/20 19:00 10/03/20 18:59 Dextrose (Dextrose 50%-Water Syringe) 25 ml STAT PRN IV HYPOGLYCEMIA 09/03/20 19:00 10/03/20 18:59 Glucagon (Glucagen) 1 mg STAT STAT IV 09/03/20 18:44 09/03/20 18:56 DC Heparin Sodium (Porcine) (Heparin) 5,000 unit Q8HR SQ 09/03/20 22:00 10/03/20 21:59 09/04/20 14:00 Lisinopril (Zestril) 20 mg BID PO 09/03/20 21:00 10/03/20 20:59 09/04/20 08:22 Azithromycin 500 mg/Sodium Chloride 250 ml @ 175 mls/hr Q24HRS IV 09/03/20 20:30 09/04/20 08:15 DC 09/03/20 21:11 Ceftriaxone Sodium 1000 mg/ Sodium Chloride 100 ml @ 100 mls/hr Q24HRS IV 09/03/20 19:30 09/04/20 08:15 DC 09/03/20 19:39 Sodium Chloride 1,000 ml @ 75 mls/hr [id number] IV 09/03/20 20:00 10/03/20 19:59 09/04/20 09:20 Ceftriaxone Sodium (Rocephin) 1,000 mg STK-MED ONCE .ROUTE 09/03/20 19:35 09/03/20 19:35 DC Sodium Chloride 100 ml @ ud STK-MED ONCE IV 09/03/20 19:35 09/03/20 19:36 DC Zinc Sulfate (Zinc Sulfate) 220 mg DAILY PO 09/04/20 09:00 10/04/20 08:59 09/04/20 08:22 Ascorbic Acid (Vitamin C) 500 mg BID PO 09/04/20 09:00 10/04/20 08:59 09/04/20 08:22 Morphine Sulfate (Morphine Sulfate) 2 mg Q4H PRN IV PAIN 4 - 6 09/04/20 19:28 10/03/20 18:59 Assessment/Plan Assessment/Plan Assessment/Plan Pt Reji Garibay is a 64 y.o. male w/ PMH: HTN, HLD, DM II that was transferred from an ED in [place] for PNA and suspected COVID infection. Upon arrival, it was noted that pt was never tested for COVID infection although CXR showed PNA, he was presumed positive. Because I still had strong suspicion for COVID-19, another COVID PCR was obtained this morning. In the meantime, I started workup for other respiratory pathogens as well as workup for non- infectious causes of lung disease, fibrosis, and hypoxemia. However, his repeat COVID testing actually came back positive, so these tests were discontinued and he was started on treatment for Coronavirus # Acute Hypoxemic Respiratory Failure # Likely Community Acquired PNA - Pt had 2 negative covid tests, then tested positive on Sep 05 - CXR showing multifocal infiltrates consistent with COVID [this prompted repeat testing for COVID] - procal obtained Sep 04 is elevated at 0.7, indicating possible superimposed bacterial infection - continue rocephin/azithro - CTA negative for PE - discontinue therapeutic lovenox # HTN - Lisinopril 20 mg # DM II - SSI - hold home anti-hyperglycemics # HLD - cholesterol and LDL on lipid panel are actually very low - will not start statin; Pt can resume home medications on discharge VTE ppx: Lovenox GI ppx: n/a 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
[2020-09-06] VITALS (7 sets, daily range): BP systolic 139–157; BP diastolic 75–88
[2020-09-06] MEDS: ROCEPHIN 2,000 MG in NS 100ML 100 ML IV SCH
--- NOTE | 2020-09-06 00:30 | NUR ---
Patient in bed with no apparent distress noted. NRB in place with 02 @15L and spo2 level 94-96%. ABT administered as ordered with no adverse reaction noted. Sputum collected and taken to lab for culture as ordered. All safety measures maintained and will follow up as needed.
[2020-09-06] MEDS: VENTOLIN HFA IH SCH ×6 (00:35→20:40)
[2020-09-06] MEDS: NS 1000ML 1,000 ML IV SCH ×2 (01:18→14:40)
[2020-09-06 05:10] LABS: BASOPHIL % 0.4 % (0.0-0.2); EOSINOPHIL % 0.1 % (0.0-5.0); LYMPHOCYTES # 0.65 10^3/uL1 (1.0-4.8); LYMPHOCYTES % 8.5 % (24.0-44.0); MEAN CORP HGB 29.8 pg (26-34); MONOCYTES # 0.6 10^3/uL (0.3-0.8); MONOCYTES % 7.8 % (5.0-12.0); NEUTROPHIL # 6.3 10^3/uL (1.8-7.7); NEUTROPHILS % 82.7 % (41.0-85.0); PLATELET COUNT 208 10^3/uL (150-400); RED CELL DISTRIBUTION WIDTH 11.9 % (11.5-14.5)
[2020-09-06 05:35] LABS: CARBON DIOXIDE 23.9 mmol/L (20.0-32)
[2020-09-06] MEDS: HUMALOG SQ SCH ×4 (07:06→20:46)
[2020-09-06] MEDS ORDERED: DEXAMETHASONE 10 MG/ML VIAL ONE (07:11)
[2020-09-06] MEDS ORDERED: LOVENOX SQ ONE (07:12)
[2020-09-06] MEDS: LOVENOX SQ SCH (09:34)
[2020-09-06] MEDS: ZINC SULFATE PO SCH ×2 (09:34→20:44)
[2020-09-06] MEDS: ZESTRIL PO SCH ×2 (09:34→20:44)
[2020-09-06] MEDS: DECADRON IV SCH (09:35)
[2020-09-06] MEDS: TYLENOL PO PRN (09:35)
[2020-09-06] MEDS: ZITHROMAX PO SCH (09:35)
[2020-09-06] MEDS: VITAMIN C PO SCH ×2 (09:35→20:44)
--- NOTE | 2020-09-06 21:30 | PRM.PN ---
Subjective Subjective Date: Sep 06, 2020 Time: 21:29 Subjective Pt s/e this AM at bedside. He continues to have high O2 requirements, but also continues to deny any worsened shob, cough, CP, etc. He did note a HANSON this AM, but states this was better at the time of my evaluation Review of Systems Other Review of systems including general, HEENT, neck, cardiopulmonary, GI, , neuro-musculoskeletal, hematologic, oncologic, endocrinology, infectious disease, dermatologic and psychiatric were reviewed with the patient and are negative unless otherwise noted in the HPI. Allergies: Coded Allergies: No Known Allergies (Unverified , 09/03/20) Scheduled Lisinopril (Lisinopril), 1 TAB PO BID, (Reported) Metformin Hcl (Metformin Hcl), 1,000 MG PO BID, (Reported) Objective Vitals and I/O Vital Sign - Last 24 Hours 09/06/20 09/06/20 09/06/20 09/06/20 08:00 08:25 08:25 08:25 Temp 99.0 Pulse 90 88 90 90 Resp 20 20 20 20 B/P (MAP) 150/88 (108) Pulse Ox 94 94 94 94 O2 Delivery Non-Rebreather Non-Rebreather O2 Flow Rate 15.00 15.00 FiO2 100 09/06/20 09/06/20 09/06/20 09/06/20 09:34 10:10 12:19 12:30 Temp 97.7 Pulse 71 71 Resp 20 20 B/P (MAP) 150/88 151/82 (105) Pulse Ox 95 95 O2 Delivery Non-Rebreather O2 Flow Rate 15.00 09/06/20 09/06/20 09/06/20 09/06/20 12:30 12:40 12:40 16:40 Temp 97.4 Pulse 71 71 71 72 Resp 20 20 20 19 B/P (MAP) 156/86 (109) Pulse Ox 95 95 95 94 09/06/20 09/06/20 19:53 20:44 Temp 98.0 Pulse 73 Resp 18 B/P (MAP) 157/82 (107) 157/82 Pulse Ox 91 Intake and Output 09/06/20 07:00 Intake Total 0 ml Balance 0 ml General: Alert, Oriented X3, Cooperative, No acute distress HEENT: Atraumatic, Other (dry mucous membranes; poor dentition ) Neck: Supple, No JVD, No thyromegaly Lungs: Other (diminished bilaterally. scattered rales bilaterally) Heart: Regular rate, Normal S1, Normal S2 Abdomen: Normal bowel sounds, Soft, No tenderness Extremities: No clubbing, No cyanosis, No edema, Normal pulses Skin: No rashes, No breakdown, No significant lesion Neuro: Normal speech, Normal tone Psych/Mental Status: Mental status NL, Mood NL All Results(Lab/Rad) Laboratory Tests Test 09/03/20 21:02 09/04/20 04:47 09/04/20 05:59 09/04/20 07:15 Bedside Glucose 164 120 123 White Blood Count 8.1 10^3/uL Red Blood Count 4.89 10^6/uL Hemoglobin 14.2 g/dL Hematocrit 40.7 % Mean Corpuscular Volume 83.2 fL Mean Corpuscular Hemoglobin 29.0 pg Mean Corpuscular Hemoglobin Concent 34.9 g/dL Red Cell Distribution Width 12.0 % Platelet Count 185 10^3/uL Mean Platelet Volume 9.6 fL Neutrophils (%) (Auto) 83.5 % Lymphocytes (%) (Auto) 9.7 % Monocytes (%) (Auto) 6.0 % Neutrophils # (Auto) 6.8 10^3/uL Lymphocytes # (Auto) 0.79 10^3/uL1 Monocytes # (Auto) 0.5 10^3/uL Absolute Immature Granulocyte (auto 0.05 10^3 u/L Absolute Eosinophils (auto) 0.0 10^3/uL Immature Granulocytes % 0.60 % Eosinophils % 0.0 % Basophils % 0.2 % Basophils # 0.0 10^3/uL Sodium Level 132 mmol/L Potassium Level 3.6 mmol/L Chloride Level 97.0 mmol/L Carbon Dioxide Level 26.0 mmol/L Anion Gap 12.6 Blood Urea Nitrogen 21 mg/dL Creatinine 1.18 mg/dL Estimated GFR () 75.2 Est GFR (CKD-EPI)(Non-Afr Scottish) 62.1 BUN/Creatinine Ratio 17.0 Glucose Level 118 mg/dL Hemoglobin A1c 8.0 % Calcium Level 8.3 mg/dL Total Bilirubin 0.7 mg/dL Aspartate Amino Transf (AST/SGOT) 55 U/L Alanine Aminotransferase (ALT/SGPT) 37 U/L Alkaline Phosphatase 40 U/L Total Protein 6.5 g/dL Albumin 2.3 g/dL Globulin 4.2 Albumin/Globulin Ratio 0.547 Triglycerides Level 65 mg/dL Cholesterol Level 76 mg/dL LDL Cholesterol, Calculated 26.0 VLDL Cholesterol, Calculated 13.0 HDL Cholesterol 37 mg/dL Cholesterol Ratio (LDL/HDL) 0.7 Cholesterol/HDL Ratio [id number] Test 09/04/20 11:37 09/04/20 12:22 09/04/20 16:36 Bedside Glucose 159 131 D-Dimer 1.85 mg/L Troponin I < 0.02 ng/mL Pro-B-Type Natriuretic Peptide 97 pg/mL Current Medications Medications (Trade) Dose Ordered Sig/Adrianna Route PRN Reason Start Time Stop Time Status Last Admin Dose Admin Acetaminophen (Tylenol) 325 mg Q4H PRN PO PAIN 1 - 3 09/03/20 19:00 10/03/20 18:59 Morphine Sulfate (Morphine Sulfate) 2 mg Q4H PRN IV PAIN 4 - 6 09/03/20 19:00 09/04/20 19:28 DC Insulin Human Lispro (Humalog) 0-140 0 Units 141-200... ACHS SQ 09/03/20 21:00 10/03/20 20:59 09/04/20 11:30 Dextrose 1,000 ml @ 100 mls/hr Q10H PRN IV HYPOGLYCEMIA 09/03/20 19:00 10/03/20 18:59 Dextrose (Dextrose 50%-Water Syringe) 25 ml STAT PRN IV HYPOGLYCEMIA 09/03/20 19:00 10/03/20 18:59 Glucagon (Glucagen) 1 mg STAT STAT IV 09/03/20 18:44 09/03/20 18:56 DC Heparin Sodium (Porcine) (Heparin) 5,000 unit Q8HR SQ 09/03/20 22:00 10/03/20 21:59 09/04/20 14:00 Lisinopril (Zestril) 20 mg BID PO 09/03/20 21:00 10/03/20 20:59 09/04/20 08:22 Azithromycin 500 mg/Sodium Chloride 250 ml @ 175 mls/hr Q24HRS IV 09/03/20 20:30 09/04/20 08:15 DC 09/03/20 21:11 Ceftriaxone Sodium 1000 mg/ Sodium Chloride 100 ml @ 100 mls/hr Q24HRS IV 09/03/20 19:30 09/04/20 08:15 DC 09/03/20 19:39 Sodium Chloride 1,000 ml @ 75 mls/hr [id number] IV 09/03/20 20:00 10/03/20 19:59 09/04/20 09:20 Ceftriaxone Sodium (Rocephin) 1,000 mg STK-MED ONCE .ROUTE 09/03/20 19:35 09/03/20 19:35 DC Sodium Chloride 100 ml @ ud STK-MED ONCE IV 09/03/20 19:35 09/03/20 19:36 DC Zinc Sulfate (Zinc Sulfate) 220 mg DAILY PO 09/04/20 09:00 10/04/20 08:59 09/04/20 08:22 Ascorbic Acid (Vitamin C) 500 mg BID PO 09/04/20 09:00 10/04/20 08:59 09/04/20 08:22 Morphine Sulfate (Morphine Sulfate) 2 mg Q4H PRN IV PAIN 4 - 6 09/04/20 19:28 10/03/20 18:59 Assessment/Plan Assessment/Plan Assessment/Plan Pt Reji Garibay is a 64 y.o. male w/ PMH: HTN, HLD, DM II that was transferred from an ED in [place] for PNA and suspected COVID infection. Upon arrival, it was noted that pt was never tested for COVID infection although CXR showed PNA, he was presumed positive. Because I still had strong suspicion for COVID-19, another COVID PCR was obtained this morning. In the meantime, I started workup for other respiratory pathogens as well as workup for non- infectious causes of lung disease, fibrosis, and hypoxemia. However, his repeat COVID testing actually came back positive, so these tests were discontinued and he was started on treatment for Coronavirus # Acute Hypoxemic Respiratory Failure # Likely Community Acquired PNA - Pt had 2 negative covid tests, then tested positive on Sep 05 - CXR showing multifocal infiltrates consistent with COVID - procal obtained Sep 04 is elevated at 0.7, indicating possible superimposed bacterial infection - continue rocephin/azithro - CTA negative for PE - discontinue therapeutic lovenox - IV Dexamethasone 8mg daily - Zinc and Vitamin C # HTN - Lisinopril 20 mg # DM II - SSI - hold home anti-hyperglycemics # HLD - cholesterol and LDL on lipid panel are actually very low - will not start statin; Pt can resume home medications on discharge VTE ppx: Lovenox GI ppx: n/a 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
[2020-09-07] MEDS: ROCEPHIN 2,000 MG in NS 100ML 100 ML IV SCH (00:15)
[2020-09-07] MEDS: VENTOLIN HFA IH SCH ×6 (01:35→20:10)
[2020-09-07] MEDS: NS 1000ML 1,000 ML IV SCH ×2 (04:42→16:34)
[2020-09-07 05:22] VITALS: BP 136/77
[2020-09-07] MEDS: HUMALOG SQ SCH ×4 (07:30→21:10)
[2020-09-07] MEDS: ZITHROMAX PO SCH (08:41)
[2020-09-07] MEDS: DECADRON IV SCH (08:41)
[2020-09-07] MEDS: LOVENOX SQ SCH (08:41)
[2020-09-07] MEDS: ZINC SULFATE PO SCH ×2 (08:41→21:11)
[2020-09-07] MEDS: VITAMIN C PO SCH ×2 (08:41→21:11)
[2020-09-07] MEDS: ZESTRIL PO SCH ×2 (08:42→21:10)
[2020-09-07 08:54] VITALS: BP 117/72
--- NOTE | 2020-09-07 10:58 | NUR ---
Critical vital sign Brielle Mayorga reported to RN at bedside that this pt Spo2 is sustaining 79% on 13L NR. RN notified Isha lala RN of this finding and she notified RT Hanane. Addendum: 09/07/20 at 1856 by CHUCK DAVIDSON RN, RAC RN 1700 NOtified Isha lala RN that this pt HR is elevate (128). Per facility protocol dai RIVERA will report these findings to the MD. 1710 Telemetry monitoring is applied to the pt. Pt is sinus tach 132.
[2020-09-07 14:47] VITALS: BP 117/72
[2020-09-07 16:40] VITALS: BP 132/89
[2020-09-07 18:28] LABS: ABG PCO2 30.6 mmHg (35.0-45.0); ABG PH 7.403 (7.350-7.450)
[2020-09-07 18:29] LABS: BE(B) -4.8 mmol/L (-2.0-2.0); HCO3act 18.7 mmol/L (22.0-26.0); pO2 62.4 mmHg (80.0-100.0)
[2020-09-07] MEDS ORDERED: REMDESIVIR (EUA) 200 MG in NS 100ML 100 ML IV STA (18:45)
[2020-09-07 18:56] VITALS: BP 131/83
--- NOTE | 2020-09-07 19:22 | PRM.PN ---
Subjective Subjective Date: Sep 07, 2020 Time: 19:20 Subjective Pt s/e this AM at bedside. He continues to have high O2 requirements, but also continues to deny any worsened shob, cough, CP, etc. Review of Systems Allergies: Coded Allergies: No Known Allergies (Unverified , 09/03/20) Scheduled Lisinopril (Lisinopril), 1 TAB PO BID, (Reported) Metformin Hcl (Metformin Hcl), 1,000 MG PO BID, (Reported) Objective Vitals and I/O Vital Sign - Last 24 Hours 09/07/20 09/07/20 09/07/20 09/07/20 07:49 07:49 08:42 08:54 Temp 97.6 Pulse 130 127 119 Resp 18 18 19 B/P (MAP) 136/77 117/72 (87) Pulse Ox 94 93 88 O2 Delivery Non-Rebreather O2 Flow Rate 15.00 FiO2 100 09/07/20 09/07/20 09/07/20 09/07/20 09:35 12:20 14:47 16:40 Temp 97.6 97.3 Pulse 113 113 97 Resp 18 18 19 B/P (MAP) 117/72 (87) 132/89 (103) Pulse Ox 96 96 88 O2 Delivery Non-Rebreather Non-Rebreather O2 Flow Rate 15.00 15.00 09/07/20 09/07/20 16:58 18:56 Temp 98.1 Pulse 120 88 Resp 18 19 B/P (MAP) 131/83 (99) Pulse Ox 91 93 Intake and Output 09/07/20 07:00 Intake Total 780 ml Balance 780 ml General: Alert, Oriented X3, Cooperative, No acute distress HEENT: Atraumatic, PERRLA, Other (dry mucous membranes; poor dentition ) Neck: Supple, No JVD, No thyromegaly Lungs: Other (diminished bilaterally. scattered rales bilaterally) Heart: Regular rate, Normal S1, Normal S2 Abdomen: Normal bowel sounds, Soft, No tenderness Extremities: No clubbing, No cyanosis, No edema, Normal pulses Skin: No rashes, No breakdown, No significant lesion Neuro: Normal speech, Strength at 5/5 X4 ext, Normal tone, Sensation intact Psych/Mental Status: Mental status NL, Mood NL All Results(Lab/Rad) Laboratory Tests Test 09/03/20 21:02 09/04/20 04:47 09/04/20 05:59 09/04/20 07:15 Bedside Glucose 164 120 123 White Blood Count 8.1 10^3/uL Red Blood Count 4.89 10^6/uL Hemoglobin 14.2 g/dL Hematocrit 40.7 % Mean Corpuscular Volume 83.2 fL Mean Corpuscular Hemoglobin 29.0 pg Mean Corpuscular Hemoglobin Concent 34.9 g/dL Red Cell Distribution Width 12.0 % Platelet Count 185 10^3/uL Mean Platelet Volume 9.6 fL Neutrophils (%) (Auto) 83.5 % Lymphocytes (%) (Auto) 9.7 % Monocytes (%) (Auto) 6.0 % Neutrophils # (Auto) 6.8 10^3/uL Lymphocytes # (Auto) 0.79 10^3/uL1 Monocytes # (Auto) 0.5 10^3/uL Absolute Immature Granulocyte (auto 0.05 10^3 u/L Absolute Eosinophils (auto) 0.0 10^3/uL Immature Granulocytes % 0.60 % Eosinophils % 0.0 % Basophils % 0.2 % Basophils # 0.0 10^3/uL Sodium Level 132 mmol/L Potassium Level 3.6 mmol/L Chloride Level 97.0 mmol/L Carbon Dioxide Level 26.0 mmol/L Anion Gap 12.6 Blood Urea Nitrogen 21 mg/dL Creatinine 1.18 mg/dL Estimated GFR () 75.2 Est GFR (CKD-EPI)(Non-Afr Slovenian) 62.1 BUN/Creatinine Ratio 17.0 Glucose Level 118 mg/dL Hemoglobin A1c 8.0 % Calcium Level 8.3 mg/dL Total Bilirubin 0.7 mg/dL Aspartate Amino Transf (AST/SGOT) 55 U/L Alanine Aminotransferase (ALT/SGPT) 37 U/L Alkaline Phosphatase 40 U/L Total Protein 6.5 g/dL Albumin 2.3 g/dL Globulin 4.2 Albumin/Globulin Ratio 0.547 Triglycerides Level 65 mg/dL Cholesterol Level 76 mg/dL LDL Cholesterol, Calculated 26.0 VLDL Cholesterol, Calculated 13.0 HDL Cholesterol 37 mg/dL Cholesterol Ratio (LDL/HDL) 0.7 Cholesterol/HDL Ratio [id number] Test 09/04/20 11:37 09/04/20 12:22 09/04/20 16:36 Bedside Glucose 159 131 D-Dimer 1.85 mg/L Troponin I < 0.02 ng/mL Pro-B-Type Natriuretic Peptide 97 pg/mL Current Medications Medications (Trade) Dose Ordered Sig/Adrianna Route PRN Reason Start Time Stop Time Status Last Admin Dose Admin Acetaminophen (Tylenol) 325 mg Q4H PRN PO PAIN 1 - 3 09/03/20 19:00 10/03/20 18:59 Morphine Sulfate (Morphine Sulfate) 2 mg Q4H PRN IV PAIN 4 - 6 09/03/20 19:00 09/04/20 19:28 DC Insulin Human Lispro (Humalog) 0-140 0 Units 141-200... ACHS SQ 09/03/20 21:00 10/03/20 20:59 09/04/20 11:30 Dextrose 1,000 ml @ 100 mls/hr Q10H PRN IV HYPOGLYCEMIA 09/03/20 19:00 10/03/20 18:59 Dextrose (Dextrose 50%-Water Syringe) 25 ml STAT PRN IV HYPOGLYCEMIA 09/03/20 19:00 10/03/20 18:59 Glucagon (Glucagen) 1 mg STAT STAT IV 09/03/20 18:44 09/03/20 18:56 DC Heparin Sodium (Porcine) (Heparin) 5,000 unit Q8HR SQ 09/03/20 22:00 10/03/20 21:59 09/04/20 14:00 Lisinopril (Zestril) 20 mg BID PO 09/03/20 21:00 10/03/20 20:59 09/04/20 08:22 Azithromycin 500 mg/Sodium Chloride 250 ml @ 175 mls/hr Q24HRS IV 09/03/20 20:30 09/04/20 08:15 DC 09/03/20 21:11 Ceftriaxone Sodium 1000 mg/ Sodium Chloride 100 ml @ 100 mls/hr Q24HRS IV 09/03/20 19:30 09/04/20 08:15 DC 09/03/20 19:39 Sodium Chloride 1,000 ml @ 75 mls/hr [id number] IV 09/03/20 20:00 10/03/20 19:59 09/04/20 09:20 Ceftriaxone Sodium (Rocephin) 1,000 mg STK-MED ONCE .ROUTE 09/03/20 19:35 09/03/20 19:35 DC Sodium Chloride 100 ml @ ud STK-MED ONCE IV 09/03/20 19:35 09/03/20 19:36 DC Zinc Sulfate (Zinc Sulfate) 220 mg DAILY PO 09/04/20 09:00 10/04/20 08:59 09/04/20 08:22 Ascorbic Acid (Vitamin C) 500 mg BID PO 09/04/20 09:00 10/04/20 08:59 09/04/20 08:22 Morphine Sulfate (Morphine Sulfate) 2 mg Q4H PRN IV PAIN 4 - 6 09/04/20 19:28 10/03/20 18:59 Assessment/Plan Assessment/Plan Assessment/Plan Pt Reji Garibay is a 64 y.o. male w/ PMH: HTN, HLD, DM II that was transferred from an ED in [place] for PNA and suspected COVID infection. Upon arrival, it was noted that pt was never tested for COVID infection although CXR showed PNA, he was presumed positive. Because I still had strong suspicion for COVID-19, another COVID PCR was obtained this morning. In the meantime, I started workup for other respiratory pathogens as well as workup for non- infectious causes of lung disease, fibrosis, and hypoxemia. However, his repeat COVID testing actually came back positive, so these tests were discontinued and he was started on treatment for Coronavirus # Acute Hypoxemic Respiratory Failure # Likely Community Acquired PNA - Pt had 2 negative covid tests, then tested positive on Sep 05 - CXR showing multifocal infiltrates consistent with COVID - procal obtained Sep 04 is elevated at 0.7, indicating possible superimposed bacterial infection - continue rocephin/azithro - CTA negative for PE - discontinue therapeutic lovenox - IV Dexamethasone 8mg daily - Zinc and Vitamin C - will start Remdesivir treatments at this time given lack of improvement. 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
[2020-09-07 20:19] VITALS: BP 126/68
[2020-09-08] MEDS: ROCEPHIN 2,000 MG in NS 100ML 100 ML IV SCH ×2 (00:16→23:59)
[2020-09-08 00:24] VITALS: BP 128/78
[2020-09-08] MEDS: VENTOLIN HFA IH SCH ×6 (01:40→20:15)
[2020-09-08 05:15] VITALS: BP 134/91
[2020-09-08 06:28] LABS: BASOPHIL % 0.2 % (0.0-0.2); LYMPHOCYTES # 0.56 10^3/uL1 (1.0-4.8); LYMPHOCYTES % 4.8 % (24.0-44.0); MEAN CORP HGB 29.1 pg (26-34); MONOCYTES # 0.6 10^3/uL (0.3-0.8); MONOCYTES % 4.9 % (5.0-12.0); NEUTROPHIL # 10.5 10^3/uL (1.8-7.7); NEUTROPHILS % 89.4 % (41.0-85.0); PLATELET COUNT 360 10^3/uL (150-400)
[2020-09-08 07:18] LABS: CALCIUM 8.1 mg/dL (8.4-10.5); CARBON DIOXIDE 21.4 mmol/L (20.0-32)
[2020-09-08] MEDS: HUMALOG SQ SCH ×4 (07:30→21:27)
--- NOTE | 2020-09-08 07:37 | NUR ---
D DIMER NOTIFIED DR. KAUR THAT PT'S D DIMER IS 4.4; NO ORDERS RECEIVED.
[2020-09-08 08:18] LABS: LYMPHOCYTE 4 % (25-36); MONOCYTE 1 % (3-9); SEGMENTED NEUTROPHILS 95 % (31-76)
[2020-09-08] MEDS: LOVENOX SQ SCH (08:37)
[2020-09-08] MEDS: NS 1000ML 1,000 ML IV SCH (08:37)
[2020-09-08] MEDS: ZINC SULFATE PO SCH ×2 (08:38→21:25)
[2020-09-08] MEDS: ZITHROMAX PO SCH (08:38)
[2020-09-08] MEDS: DECADRON IV SCH (08:38)
[2020-09-08] MEDS: VITAMIN C PO SCH ×2 (08:38→21:25)
[2020-09-08] MEDS: ZESTRIL PO SCH ×2 (08:39→21:25)
[2020-09-08 09:34] VITALS: BP 128/87
[2020-09-08 12:42] VITALS: BP 142/94
[2020-09-08] MEDS ORDERED: KLOR-CON 10 PO SCH (13:00)
[2020-09-08 17:33] VITALS: BP 123/74
--- NOTE | 2020-09-08 17:58 | DIET.OP ---
Nutrition Asmt/Malnutrit 2-17 Actual Date of Review: Sep 08, 2020 Diagnosis: Covid 19, Acute Hypoxemic Respiratory Failure Pertinent Medical Hx/Surgical: HTN, HLD, T2DM Subjective Information: telehealth f/u Current Diet Order/Nutrition S: 1800 elkin ADA Patient /S.O: Not Indicated Pertinent Meds Current Medications Medications (Trade) Dose Ordered Sig/Adrianna Route PRN Reason Start Time Stop Time Status Last Admin Dose Admin Acetaminophen (Tylenol) 325 mg Q4H PRN PO PAIN 1 - 3 09/03/20 19:00 09/05/20 19:26 DC Morphine Sulfate (Morphine Sulfate) 2 mg Q4H PRN IV PAIN 4 - 6 09/03/20 19:00 09/04/20 19:28 DC Insulin Human Lispro (Humalog) 0-140 0 Units 141-200... ACHS SQ 09/03/20 21:00 10/03/20 20:59 09/08/20 11:30 Dextrose 1,000 ml @ 100 mls/hr Q10H PRN IV HYPOGLYCEMIA 09/03/20 19:00 10/03/20 18:59 Dextrose (Dextrose 50%-Water Syringe) 25 ml STAT PRN IV HYPOGLYCEMIA 09/03/20 19:00 10/03/20 18:59 Glucagon (Glucagen) 1 mg STAT STAT IV 09/03/20 18:44 09/03/20 18:56 DC Heparin Sodium (Porcine) (Heparin) 5,000 unit Q8HR SQ 09/03/20 22:00 09/04/20 20:10 DC 09/04/20 14:00 Lisinopril (Zestril) 20 mg BID PO 09/03/20 21:00 10/03/20 20:59 09/08/20 08:39 Azithromycin 500 mg/Sodium Chloride 250 ml @ 175 mls/hr Q24HRS IV 09/03/20 20:30 09/04/20 08:15 DC 09/03/20 21:11 Ceftriaxone Sodium 1000 mg/ Sodium Chloride 100 ml @ 100 mls/hr Q24HRS IV 09/03/20 19:30 09/04/20 08:15 DC 09/03/20 19:39 Sodium Chloride 1,000 ml @ 75 mls/hr [id number] IV 09/03/20 20:00 10/03/20 19:59 09/08/20 08:37 Ceftriaxone Sodium (Rocephin) 1,000 mg STK-MED ONCE .ROUTE 09/03/20 19:35 09/03/20 19:35 DC Sodium Chloride 100 ml @ ud STK-MED ONCE IV 09/03/20 19:35 09/03/20 19:36 DC Zinc Sulfate (Zinc Sulfate) 220 mg DAILY PO 09/04/20 09:00 09/05/20 00:13 DC 09/04/20 08:22 Ascorbic Acid (Vitamin C) 500 mg BID PO 09/04/20 09:00 09/05/20 00:13 DC 09/04/20 20:22 Morphine Sulfate (Morphine Sulfate) 2 mg Q4H PRN IV PAIN 4 - 6 09/04/20 19:28 10/03/20 18:59 Enoxaparin Sodium (Lovenox) 75 mg BID SQ 09/04/20 20:30 09/05/20 11:39 DC 09/05/20 08:20 Azithromycin (Zithromax) 500 mg OT ONCE PO 09/05/20 00:00 09/05/20 02:22 DC 09/05/20 00:27 Ceftriaxone Sodium 2000 mg/ Sodium Chloride 100 ml @ 100 mls/hr Q24HRS IV 09/05/20 00:00 10/05/20 00:00 09/08/20 00:16 Azithromycin (Zithromax) 250 mg DAILY PO 09/05/20 19:00 09/09/20 18:59 09/08/20 08:38 Ceftriaxone Sodium (Rocephin) 1,000 mg STK-MED ONCE .ROUTE 09/05/20 00:25 09/05/20 00:26 DC Sodium Chloride 100 ml @ ud STK-MED ONCE IV 09/05/20 00:26 09/05/20 00:26 DC Enoxaparin Sodium (Lovenox) 40 mg DAILY SQ 09/06/20 09:00 10/04/20 20:29 09/08/20 08:37 Ascorbic Acid (Vitamin C) 1,000 mg BID PO 09/05/20 21:00 10/05/20 20:59 09/08/20 08:38 Zinc Sulfate (Zinc Sulfate) 220 mg BID PO 09/05/20 21:00 10/05/20 20:59 09/08/20 08:38 Albuterol Sulfate (Ventolin Hfa) 2 inh RTQ4 IH 09/05/20 13:00 10/05/20 12:59 09/08/20 09:10 Acetaminophen (Tylenol) 1,000 mg Q6H PRN PO PAIN 1 - 3 09/05/20 12:00 10/05/20 11:59 09/06/20 09:35 Enoxaparin Sodium (Lovenox) 40 mg STK-MED ONCE SQ 09/06/20 07:12 09/06/20 07:12 DC Remdesivir 200 mg/ Sodium Chloride 140 ml @ 120.69 mls/ hr OT STAT IV 09/07/20 18:45 09/07/20 19:54 DC 09/07/20 19:10 Remdesivir 100 mg/ Sodium Chloride 120 ml @ 111.111 mls/hr Q24HRS IV 09/08/20 19:00 10/08/20 18:59 Potassium Chloride (Klor-Con 10) 40 meq OT PO 09/08/20 13:00 10/08/20 12:59 Pertinent Labs K 3.4 BUN 22 Phos 2.2 alb 2 BG 214-223 A1c: 8 Height (Feet): 5 Height (Inches): 6 Current Weight: 164 %IBW: 117 Recent Weight Change: No Weight Status: Overweight GI Symptoms: None Food Allergies: No Cultural/Ethnic/Episcopal Marylou: none identified Current %PO: 0-50% BEE in Kcals: Use Current Weight Calories/Kcals/Kg: MSJ 1.2-1.4 Kcals Calculated: 7566-7741 kcal Protein: Use Current Weight Protein g/k.8-1 g/kg Protein Calculated: 60-75g Fluid: ml: 8450-2182 ml or 1 ml/kcal Nutritional Problem: Nutr. Problems Present Problems: Inadequate energy intake r/t SOB/reduced appetite AEB 0-50% po intake, pt refusing meals. Recommendations by RD: Add supplement feedings RD Comments: 1. Continue 1800 elkin ADA diet, encouraging po intake. 2. Recommend Glucerna oral supplement BID to help meet nutritional needs. 3. Continue to monitor BG and correct as indicated. RD to monitor po intake, oral supplement acceptance, weight, education needs, and care plan. Expected Outcomes 75-100% po intake of meals to meet needs the next 3 days. Discharge on regular diet. RD to provide DM diet ed when appropriate. Malnutrtion/Nutrition Risk Edu: No MD Notificiation Needed?: No Jessica Morris Sep 08, 2020 17:58
[2020-09-08] MEDS: REMDESIVIR (EUA) 100 MG in NS 100ML 100 ML IV SCH (18:07)
[2020-09-08 20:16] VITALS: BP 127/87
--- NOTE | 2020-09-08 22:48 | PRM.PN ---
Subjective Subjective Date: Sep 08, 2020 Time: 22:44 Subjective Pt s/e this AM at bedside. He continues to have high O2 requirements, but states he feels well and denies any shob, cough, LH/dizziness, cp, abd pain, n/v/d/c, etc. Review of Systems Other Review of systems including general, HEENT, neck, cardiopulmonary, GI, , neuro-musculoskeletal, hematologic, oncologic, endocrinology, infectious disease, dermatologic and psychiatric were reviewed with the patient and are negative unless otherwise noted in the HPI. Exam Vital Signs Vital Signs Date Time Temp Pulse Resp B/P (MAP) Pulse Ox O2 Delivery O2 Flow Rate FiO2 09/08/20 21:25 127/87 09/08/20 20:16 98.0 98 18 95 09/08/20 20:15 Non-Rebreather 15.00 100 General Appearance: Alert, Oriented X3, Cooperative, No acute distress HEENT: Atraumatic, PERRLA Respiratory: Other (diminished bilaterally with bilateral scattered rales. satting well on Non-rebreather) Cardiovascular: Regular rate, Normal S1, Normal S2, No murmurs Abdominal: Normal bowel sounds, Soft, No tenderness, No hepatospenomegaly, No masses Extremities: No clubbing, No cyanosis, No edema Skin: No rash, No breakdown, No lesions Neuro: Normal speech, Strength at 5/5 X4 ext, Normal tone, Sensation intact Psych/Mental Status: Mental status NL, Mood NL Meds/Labs/Orders Medication List: Current Medications Medications (Trade) Dose Ordered Sig/Adrianna PRN Reason Start Time Stop Time Status Last Admin Enoxaparin Sodium (Lovenox) 40 mg DAILY 09/06/20 09:00 10/04/20 20:29 09/08/20 08:37 Potassium Chloride (Klor-Con 10) 40 meq OT 09/08/20 13:00 10/08/20 12:59 Remdesivir 100 mg/ Sodium Chloride 120 ml @ 111.111 mls/hr Q24HRS 09/08/20 19:00 10/08/20 18:59 09/08/20 18:07 Lab results: Laboratory Tests Test 09/07/20 05:22 09/07/20 07:46 09/07/20 10:47 09/07/20 17:34 Bedside Glucose 181 222 238 220 Test 09/07/20 17:36 09/07/20 18:20 09/07/20 18:59 09/07/20 20:18 Bedside Glucose 236 226 Blood Gas Sample Site RR Blood Gas pH 7.403 Blood Gas PCO2 30.6 mmHg Blood Gas PO2 62.4 mmHg Blood Gas HCO3 18.7 mmol/L Blood Gas Base Excess -4.8 mmol/L Abdi Test POSITIVE Arterial Blood Oxygen Saturation 92.1 % Deoxyhemoglobin 7.8 % Carboxyhemoglobin 0.7 % Methemoglobin 0.2 % Total Hemoglobin 14.6 % Total Oxygen Concentration 18.7 % Blood Gas Temperature 37.0 Oxygen Delivery Method (LAB) NON-REBREATHER MASK FiO2 100 % Total Carbon Dioxide 19.6 mmol/L Hemoglobin 14.0 g/dL Hematocrit 40.0 % Platelet Count 386 10^3/uL Prothrombin Time 11.2 SEC Prothrombin Time INR (Non-Therap) 1.1 Fibrinogen > 450 mg/dL Test 09/08/20 05:14 09/08/20 05:20 09/08/20 06:57 09/08/20 07:39 Bedside Glucose 204 223 White Blood Count 11.7 10^3/uL Red Blood Count 4.60 10^6/uL Hemoglobin 13.4 g/dL Hematocrit 38.5 % Mean Corpuscular Volume 83.7 fL Mean Corpuscular Hemoglobin 29.1 pg Mean Corpuscular Hemoglobin Concent 34.8 g/dL Red Cell Distribution Width 12.0 % Platelet Count 360 10^3/uL Mean Platelet Volume 9.7 fL Neutrophils (%) (Auto) 89.4 % Lymphocytes (%) (Auto) 4.8 % Monocytes (%) (Auto) 4.9 % Neutrophils # (Auto) 10.5 10^3/uL Lymphocytes # (Auto) 0.56 10^3/uL1 Monocytes # (Auto) 0.6 10^3/uL Absolute Immature Granulocyte (auto 0.08 10^3 u/L Absolute Eosinophils (auto) 0.0 10^3/uL Immature Granulocytes % 0.70 % Eosinophils % 0.0 % Basophils % 0.2 % Basophils # 0.0 10^3/uL D-Dimer 4.40 mg/L Sodium Level 139 mmol/L Potassium Level 3.4 mmol/L Chloride Level 108.0 mmol/L Carbon Dioxide Level 21.4 mmol/L Anion Gap 13.0 Blood Urea Nitrogen 22 mg/dL Creatinine 0.87 mg/dL Estimated GFR () 106.9 Est GFR (CKD-EPI)(Non-Afr Armenian) 88.3 BUN/Creatinine Ratio 25.0 Glucose Level 214 mg/dL Calcium Level 8.1 mg/dL Phosphorus Level 2.2 mg/dL Magnesium Level 2.2 mg/dL Ferritin 1364 ng/mL Total Bilirubin 0.3 mg/dL Aspartate Amino Transf (AST/SGOT) 44 U/L Alanine Aminotransferase (ALT/SGPT) 23 U/L Alkaline Phosphatase 45 U/L Lactate Dehydrogenase 300 U/L Total Creatine Kinase 48 U/L C-Reactive Protein 3.22 mg/dL Total Protein 5.9 g/dL Albumin 2.0 g/dL Globulin 3.9 Albumin/Globulin Ratio 0.512 Procalcitonin 0.29 ng/mL Segmented Neutrophils 95 % Lymphocytes 4 % Monocytes 1 % Platelet Estimate ADEQUATE Platelet Morphology NORMAL Test 09/08/20 11:31 09/08/20 16:25 09/08/20 20:15 Bedside Glucose 208 183 217 My orders: Orders - BAMBI KAUR MD Telemetry Monitoring Required (09/07/20 17:01) Remdesivir (Remdesivir (Eua)) (09/08/20 19:00) Call [facility]- Order Ccp If Unable (09/07/20 18:45) Covid19 Convalescent Plasma (09/07/20 18:45) Start Iv (09/07/20 18:45) Obtain Ccp Transf Consent (09/07/20 18:45) Ccp Transfuse Unit(S) (09/07/20 18:45) Ccp Transfuse Unit(S) (09/08/20 18:45) Abo/Rh Type (09/07/20 18:45) Cont. Monitor O2 (09/07/20 18:50) Miscellaneous (09/07/20 18:50) Potassium Chloride (Klor-Con 10) (09/08/20 13:00) Cbc With Auto Diff (09/09/20 05:00) Comprehensive Metabolic Panel (09/09/20 05:00) Magnesium (09/09/20 05:00) Phosphorus (09/09/20 05:00) Assessment/Plan Assessment/Plan Assessment/Plan Pt Reji Garibay is a 64 y.o. male w/ PMH: HTN, HLD, DM II that was transferred from an ED in [place] for PNA and suspected COVID infection. Upon arrival, it was noted that pt was never tested for COVID infection although CXR showed PNA, he was presumed positive. Because I still had strong suspicion for COVID-19, another COVID PCR was obtained this morning. In the meantime, I started workup for other respiratory pathogens as well as workup for non- infectious causes of lung disease, fibrosis, and hypoxemia. However, his repeat COVID testing actually came back positive, so these tests were discontinued and he was started on treatment for Coronavirus # Acute Hypoxemic Respiratory Failure # Likely Community Acquired PNA - Pt had 2 negative covid tests, then tested positive on Sep 05 - CXR showing multifocal infiltrates consistent with COVID - procal obtained Sep 04 is elevated at 0.7, indicating possible superimposed bacterial infection - continue rocephin/azithro - CTA negative for PE - discontinue therapeutic lovenox - IV Dexamethasone 8mg daily - Zinc and Vitamin C - will start Remdesivir treatments at this time given lack of improvement. 200mg dose once tonight followed by 100mg doses nightly x 4 doses - will also start CCP x 2 units - monitor LFTs while on remdesivir # HTN - Lisinopril 20 mg # DM II - SSI - hold home anti-hyperglycemics # HLD - cholesterol and LDL on lipid panel are actually very low - will not start statin; Pt can resume home medications on discharge VTE ppx: Lovenox GI ppx: n/a Diet: diabetic CODE: lead front desk agent spent: > 15 min spent in chart review, patient evaluation, coordination of care, and documentation BAMBI KAUR MD Sep 08, 2020 22:48
[2020-09-09] MEDS: VENTOLIN HFA IH SCH ×6 (00:40→20:30)
[2020-09-09 00:44] VITALS: BP 130/68
[2020-09-09] MEDS: NS 1000ML 1,000 ML IV SCH ×3 (03:00→22:40)
[2020-09-09 05:06] VITALS: BP 117/80
[2020-09-09 07:11] LABS: BASOPHIL % 0.1 % (0.0-0.2); LYMPHOCYTES # 0.61 10^3/uL1 (1.0-4.8); LYMPHOCYTES % 5.3 % (24.0-44.0); MONOCYTES # 0.8 10^3/uL (0.3-0.8); PLATELET COUNT 367 10^3/uL (150-400)
[2020-09-09] MEDS: HUMALOG SQ SCH ×4 (07:30→20:22)
[2020-09-09 07:31] LABS: CALCIUM 7.9 mg/dL (8.4-10.5); CARBON DIOXIDE 22.4 mmol/L (20.0-32)
[2020-09-09 08:17] LABS: LYMPHOCYTE 5 % (25-36); SEGMENTED NEUTROPHILS 91 % (31-76)
[2020-09-09 08:18] LABS: MONOCYTE 4 % (3-9)
[2020-09-09] MEDS: LOVENOX SQ SCH ×3 (08:31→21:00)
[2020-09-09] MEDS: DECADRON IV SCH (08:31)
[2020-09-09] MEDS: ZITHROMAX PO SCH (08:31)
[2020-09-09 08:32] VITALS: BP 111/68
[2020-09-09] MEDS: ZESTRIL PO SCH ×2 (08:32→20:20)
[2020-09-09] MEDS: VITAMIN C PO SCH ×2 (08:32→20:19)
[2020-09-09] MEDS: ZINC SULFATE PO SCH ×2 (08:32→20:19)
--- NOTE | 2020-09-09 08:34 | NUR ---
Previous medication( NS) administration given late on prior shift
--- NOTE | 2020-09-09 10:45 | PCM.EKG ---
[facility] Test Date: 2020-09-09 Test Time: 10:37:31 Pat Name: GRICELDA LOPEZ Department: Room: ICU5 Gender: M Color Adviser: OVIDIO : 1955 Requested By: BAMBI KAUR Order Number: [id number] Reading MD: Pramod Mcdaniel Measurements Intervals [place] Rate: 124 P: CO: QRS: 27 QRSD: 88 T: 29 QT: 310 QTc: 446 Interpretive Statements Atrial fibrillation Ventricular premature complex Borderline T wave abnormalities Baseline wander in lead(s) V1,V3 No previous ECG available for comparison Electronically Signed On 09-13-2020 8:28:49 ROD PULLER by Pramod Mcdaniel Please click the below link to view image of tracing.
--- NOTE | 2020-09-09 10:48 | NUR ---
AFIB PT HAS REMAINED IN A FIB DURING THIS SHIFT. EKG DONE; SHOWS THAT PT IS IN A FIB @124. LEFT MESSAGE ON DR. KAUR'S PHONE TO CALL MED SURG.
[2020-09-09] MEDS ORDERED: LOPRESSER IVP STA (11:00)
--- NOTE | 2020-09-09 11:05 | NUR ---
VINCENT TEXT RECEIVED FROM DOCTOR FOR A 1 TIME 10 MG METOPROLOL TO BE GIVEN IV.
[2020-09-09 12:20] VITALS: BP 123/63
[2020-09-09 17:37] VITALS: BP 125/89
[2020-09-09] MEDS: REMDESIVIR (EUA) 100 MG in NS 100ML 100 ML IV SCH (18:01)
--- NOTE | 2020-09-09 19:02 | PRM.PN ---
Subjective Subjective Date: Sep 09, 2020 Time: 18:52 Subjective Pt s/e this AM at bedside. He was doing well today and was sitting up eating his meal. His HR has been jumping into the 140-150's, however, and an ECG showed Atrial fibrillation. The patient states that he has been having some palpi tations, but otherwise denies worsened shob, cough, fever, chills, CP, abdominal pain, n/v/d/c, or other acute symptoms. He is still requiring 15L via Non- rebreather Review of Systems Other Review of systems including general, HEENT, neck, cardiopulmonary, GI, , neuro-musculoskeletal, hematologic, oncologic, endocrinology, infectious disease, dermatologic and psychiatric were reviewed with the patient and are negative unless otherwise noted in the HPI. Exam Vital Signs Vital Signs Date Time Temp Pulse Resp B/P (MAP) Pulse Ox O2 Delivery O2 Flow Rate FiO2 09/09/20 17:37 98.0 90 19 125/89 (101) 94 09/09/20 09:00 Non-Rebreather 15.00 09/09/20 09:00 100 General Appearance: Alert, Oriented X3, Cooperative, No acute distress HEENT: Atraumatic, PERRLA Respiratory: Other (Diminished bilaterally with stable bilateral rales. minimal changes ) Cardiovascular: Regular rate, Normal S1, Normal S2, Other (Irregularly Irregular rhythm) Abdominal: Normal bowel sounds, Soft, No tenderness Extremities: No clubbing, No cyanosis, No edema, Normal pulses, No tenderness/swelling Skin: No rash, No breakdown, No lesions Neuro: Normal speech, Strength at 5/5 X4 ext, Normal tone, Sensation intact Psych/Mental Status: Mental status NL, Mood NL Meds/Labs/Orders Medication List: Current Medications Medications (Trade) Dose Ordered Sig/Adrianna Route PRN Reason Start Time Stop Time Status Last Admin Dose Admin Acetaminophen (Tylenol) 325 mg Q4H PRN PO PAIN 1 - 3 09/03/20 19:00 09/05/20 19:26 DC Morphine Sulfate (Morphine Sulfate) 2 mg Q4H PRN IV PAIN 4 - 6 09/03/20 19:00 09/04/20 19:28 DC Insulin Human Lispro (Humalog) 0-140 0 Units 141-200... ACHS SQ 09/03/20 21:00 10/03/20 20:59 09/09/20 17:30 Dextrose 1,000 ml @ 100 mls/hr Q10H PRN IV HYPOGLYCEMIA 09/03/20 19:00 10/03/20 18:59 Dextrose (Dextrose 50%-Water Syringe) 25 ml STAT PRN IV HYPOGLYCEMIA 09/03/20 19:00 10/03/20 18:59 Glucagon (Glucagen) 1 mg STAT STAT IV 09/03/20 18:44 09/03/20 18:56 DC Heparin Sodium (Porcine) (Heparin) 5,000 unit Q8HR SQ 09/03/20 22:00 09/04/20 20:10 DC 09/04/20 14:00 Lisinopril (Zestril) 20 mg BID PO 09/03/20 21:00 10/03/20 20:59 09/09/20 08:32 Azithromycin 500 mg/Sodium Chloride 250 ml @ 175 mls/hr Q24HRS IV 09/03/20 20:30 09/04/20 08:15 DC 09/03/20 21:11 Ceftriaxone Sodium 1000 mg/ Sodium Chloride 100 ml @ 100 mls/hr Q24HRS IV 09/03/20 19:30 09/04/20 08:15 DC 09/03/20 19:39 Sodium Chloride 1,000 ml @ 75 mls/hr [id number] IV 09/03/20 20:00 10/03/20 19:59 09/09/20 03:00 Ceftriaxone Sodium (Rocephin) 1,000 mg STK-MED ONCE .ROUTE 09/03/20 19:35 09/03/20 19:35 DC Sodium Chloride 100 ml @ ud STK-MED ONCE IV 09/03/20 19:35 09/03/20 19:36 DC Zinc Sulfate (Zinc Sulfate) 220 mg DAILY PO 09/04/20 09:00 09/05/20 00:13 DC 09/04/20 08:22 Ascorbic Acid (Vitamin C) 500 mg BID PO 09/04/20 09:00 09/05/20 00:13 DC 09/04/20 20:22 Morphine Sulfate (Morphine Sulfate) 2 mg Q4H PRN IV PAIN 4 - 6 09/04/20 19:28 10/03/20 18:59 Enoxaparin Sodium (Lovenox) 75 mg BID SQ 09/04/20 20:30 09/05/20 11:39 DC 09/05/20 08:20 Azithromycin (Zithromax) 500 mg OT ONCE PO 09/05/20 00:00 09/05/20 02:22 DC 09/05/20 00:27 Ceftriaxone Sodium 2000 mg/ Sodium Chloride 100 ml @ 100 mls/hr Q24HRS IV 09/05/20 00:00 09/09/20 18:46 DC 09/08/20 23:59 Azithromycin (Zithromax) 250 mg DAILY PO 09/05/20 19:00 09/09/20 18:59 09/09/20 08:31 Ceftriaxone Sodium (Rocephin) 1,000 mg STK-MED ONCE .ROUTE 09/05/20 00:25 09/05/20 00:26 DC Sodium Chloride 100 ml @ ud STK-MED ONCE IV 09/05/20 00:26 09/05/20 00:26 DC Enoxaparin Sodium (Lovenox) 40 mg DAILY SQ 09/06/20 09:00 09/09/20 18:47 DC 09/09/20 08:31 Ascorbic Acid (Vitamin C) 1,000 mg BID PO 09/05/20 21:00 10/05/20 20:59 09/09/20 08:32 Zinc Sulfate (Zinc Sulfate) 220 mg BID PO 09/05/20 21:00 10/05/20 20:59 09/09/20 08:32 Albuterol Sulfate (Ventolin Hfa) 2 inh RTQ4 IH 09/05/20 13:00 10/05/20 12:59 09/09/20 16:00 Acetaminophen (Tylenol) 1,000 mg Q6H PRN PO PAIN 1 - 3 09/05/20 12:00 10/05/20 11:59 09/06/20 09:35 Enoxaparin Sodium (Lovenox) 40 mg STK-MED ONCE SQ 09/06/20 07:12 09/06/20 07:12 DC Remdesivir 200 mg/ Sodium Chloride 140 ml @ 120.69 mls/ hr OT STAT IV 09/07/20 18:45 09/07/20 19:54 DC 09/07/20 19:10 Remdesivir 100 mg/ Sodium Chloride 120 ml @ 111.111 mls/hr Q24HRS IV 09/08/20 19:00 10/08/20 18:59 09/09/20 18:01 Potassium Chloride (Klor-Con 10) 40 meq OT PO 09/08/20 13:00 10/08/20 12:59 09/09/20 04:56 Metoprolol Tartrate (Lopresser) 10 mg STAT STAT IVP 09/09/20 11:00 09/09/20 11:04 DC 09/09/20 11:34 Metoprolol Tartrate (Lopresser) 25 mg BID PO 09/09/20 21:00 10/09/20 20:59 UNV Enoxaparin Sodium (Lovenox) 80 mg BID SQ 09/09/20 19:00 10/04/20 20:29 UNV Lab results: Laboratory Tests Test 09/07/20 18:59 09/07/20 20:18 09/08/20 05:14 09/08/20 05:20 Hemoglobin 14.0 g/dL 13.4 g/dL Hematocrit 40.0 % 38.5 % Platelet Count 386 10^3/uL 360 10^3/uL Prothrombin Time 11.2 SEC Prothrombin Time INR (Non-Therap) 1.1 Fibrinogen > 450 mg/dL Bedside Glucose 226 204 White Blood Count 11.7 10^3/uL Red Blood Count 4.60 10^6/uL Mean Corpuscular Volume 83.7 fL Mean Corpuscular Hemoglobin 29.1 pg Mean Corpuscular Hemoglobin Concent 34.8 g/dL Red Cell Distribution Width 12.0 % Mean Platelet Volume 9.7 fL Neutrophils (%) (Auto) 89.4 % Lymphocytes (%) (Auto) 4.8 % Monocytes (%) (Auto) 4.9 % Neutrophils # (Auto) 10.5 10^3/uL Lymphocytes # (Auto) 0.56 10^3/uL1 Monocytes # (Auto) 0.6 10^3/uL Absolute Immature Granulocyte (auto 0.08 10^3 u/L Absolute Eosinophils (auto) 0.0 10^3/uL Immature Granulocytes % 0.70 % Eosinophils % 0.0 % Basophils % 0.2 % Basophils # 0.0 10^3/uL D-Dimer 4.40 mg/L Sodium Level 139 mmol/L Potassium Level 3.4 mmol/L Chloride Level 108.0 mmol/L Carbon Dioxide Level 21.4 mmol/L Anion Gap 13.0 Blood Urea Nitrogen 22 mg/dL Creatinine 0.87 mg/dL Estimated GFR () 106.9 Est GFR (CKD-EPI)(Non-Afr Ghanaian) 88.3 BUN/Creatinine Ratio 25.0 Glucose Level 214 mg/dL Calcium Level 8.1 mg/dL Phosphorus Level 2.2 mg/dL Magnesium Level 2.2 mg/dL Ferritin 1364 ng/mL Total Bilirubin 0.3 mg/dL Aspartate Amino Transf (AST/SGOT) 44 U/L Alanine Aminotransferase (ALT/SGPT) 23 U/L Alkaline Phosphatase 45 U/L Lactate Dehydrogenase 300 U/L Total Creatine Kinase 48 U/L C-Reactive Protein 3.22 mg/dL Total Protein 5.9 g/dL Albumin 2.0 g/dL Globulin 3.9 Albumin/Globulin Ratio 0.512 Procalcitonin 0.29 ng/mL Test 09/08/20 06:57 09/08/20 07:39 09/08/20 11:31 09/08/20 16:25 Segmented Neutrophils 95 % Lymphocytes 4 % Monocytes 1 % Platelet Estimate ADEQUATE Platelet Morphology NORMAL Bedside Glucose 223 208 183 Test 09/08/20 20:15 09/09/20 05:05 09/09/20 06:31 09/09/20 07:23 Bedside Glucose 217 169 White Blood Count 11.5 10^3/uL Red Blood Count 4.52 10^6/uL Hemoglobin 13.1 g/dL Hematocrit 37.4 % Mean Corpuscular Volume 82.7 fL Mean Corpuscular Hemoglobin 29.0 pg Mean Corpuscular Hemoglobin Concent 35.0 g/dL Red Cell Distribution Width 12.0 % Platelet Count 367 10^3/uL Mean Platelet Volume 9.2 fL Neutrophils (%) (Auto) 87.0 % Lymphocytes (%) (Auto) 5.3 % Monocytes (%) (Auto) 7.0 % Neutrophils # (Auto) 10.0 10^3/uL Lymphocytes # (Auto) 0.61 10^3/uL1 Monocytes # (Auto) 0.8 10^3/uL Absolute Immature Granulocyte (auto 0.07 10^3 u/L Absolute Eosinophils (auto) 0.0 10^3/uL Immature Granulocytes % 0.60 % Eosinophils % 0.0 % Basophils % 0.1 % Basophils # 0.0 10^3/uL Sodium Level 141 mmol/L Potassium Level 3.9 mmol/L Chloride Level 109.0 mmol/L Carbon Dioxide Level 22.4 mmol/L Anion Gap 13.5 Blood Urea Nitrogen 22 mg/dL Creatinine 0.81 mg/dL Estimated GFR () 116.1 Est GFR (CKD-EPI)(Non-Afr Ghanaian) 95.9 BUN/Creatinine Ratio 27.0 Glucose Level 187 mg/dL Calcium Level 7.9 mg/dL Phosphorus Level 2.7 mg/dL Magnesium Level 2.0 mg/dL Total Bilirubin 0.4 mg/dL Aspartate Amino Transf (AST/SGOT) 32 U/L Alanine Aminotransferase (ALT/SGPT) 29 U/L Alkaline Phosphatase 44 U/L Total Protein 5.5 g/dL Albumin 2.0 g/dL Globulin 3.5 Albumin/Globulin Ratio 0.571 Segmented Neutrophils 91 % Lymphocytes 5 % Monocytes 4 % Platelet Estimate ADEQUATE Platelet Morphology NORMAL Test 09/09/20 07:39 09/09/20 11:15 09/09/20 16:50 Bedside Glucose 231 236 192 My orders: Orders - BAMBI KAUR MD Cont. Monitor O2 (09/07/20 18:50) Miscellaneous (09/07/20 18:50) Potassium Chloride (Klor-Con 10) (09/08/20 13:00) Metoprolol Tartrate (Lopresser) (09/09/20 21:00) Enoxaparin Sodium (Lovenox) (09/09/20 19:00) Cbc With Auto Diff (09/10/20 05:00) Comprehensive Metabolic Panel (09/10/20 05:00) Magnesium (09/10/20 05:00) Phosphorus (09/10/20 05:00) D-Dimer (09/10/20 05:00) C-Reactive Protein (09/10/20 05:00) Procalcitonin (09/10/20 05:00) Ferritin(Ml) (09/10/20 05:00) Lactate Dehydrogenase (09/10/20 05:00) Creatine Kinase (09/10/20 05:00) Assessment/Plan Assessment/Plan Assessment/Plan Pt Reji Garibay is a 64 y.o. male w/ PMH: HTN, HLD, DM II that was transferred from an ED in [place] for PNA and suspected COVID infection. Upon arrival, it was noted that pt was never tested for COVID infection although CXR showed PNA, he was presumed positive. Because I still had strong suspicion for COVID-19, another COVID PCR was obtained this morning. In the meantime, I started workup for other respiratory pathogens as well as workup for non- infectious causes of lung disease, fibrosis, and hypoxemia. However, his repeat COVID testing actually came back positive, so these tests were discontinued and he was started on treatment for Coronavirus # Acute Hypoxemic Respiratory Failure # COVID PNA - Pt had 2 negative covid tests, then tested positive on Sep 05 - CXR showing multifocal infiltrates consistent with COVID - procal obtained Sep 04 is elevated at 0.7, indicating possible superimposed bacterial infection - continue rocephin/azithro - CTA negative for PE - discontinue therapeutic lovenox - IV Dexamethasone 8mg daily - Zinc and Vitamin C - will start Remdesivir treatments at this time given lack of improvement. 200mg dose once tonight followed by 100mg doses nightly x 4 doses - will also start CCP x 2 units - monitor LFTs while on remdesivir # [place] ATRIAL FIBRILLATION # AFIB WITH RVR, resolved - No known history of atrial fibrillation in the past - has been tachycardic to 140-150s this AM - ECG showing Atrial fibrillation - gave IV metoprolol 10 once, which resolved RVR - start PO metoprolol 25 BID, - will start therapeutic anticoagulation with Lovenox 80 BID - Pt is undocumented and does not have the means to pay for DOACs, will discuss potential options with CM. May need to start bridging him to Warfarin if DOAC is not possible # HTN - Lisinopril 20 mg # DM II - SSI - hold home anti-hyperglycemics # HLD - cholesterol and LDL on lipid panel are actually very low - will not start statin; Pt can resume home medications on discharge VTE ppx: Lovenox 80 BID GI ppx: n/a Diet: diabetic CODE: faculty research assistant spent: > 25 min spent in chart review, patient evaluation, coordination of care, and documentation BAMBI KAUR MD Sep 09, 2020 19:02
[2020-09-09 19:55] VITALS: BP 114/88
[2020-09-09] MEDS: LOPRESSER PO SCH (20:19)
[2020-09-10] VITALS (10 sets, daily range): BP systolic 121–163; BP diastolic 72–91
[2020-09-10] MEDS: VENTOLIN HFA IH SCH ×6 (00:20→20:40)
[2020-09-10 05:16] LABS: BASOPHIL % 0.1 % (0.0-0.2); EOSINOPHIL % 0.1 % (0.0-5.0); LYMPHOCYTES # 1.06 10^3/uL1 (1.0-4.8); MEAN CORP HGB 28.9 pg (26-34); MONOCYTES # 0.6 10^3/uL (0.3-0.8); MONOCYTES % 4.8 % (5.0-12.0); NEUTROPHIL # 9.9 10^3/uL (1.8-7.7); PLATELET COUNT 361 10^3/uL (150-400); RED CELL DISTRIBUTION WIDTH 12.3 % (11.5-14.5)
[2020-09-10 06:04] LABS: CALCIUM 7.9 mg/dL (8.4-10.5); CARBON DIOXIDE 27.2 mmol/L (20.0-32)
--- NOTE | 2020-09-10 06:23 | NUR ---
CRITICAL LAB D-DIMER 8.09, DR. GRIGGS NOTIFIED NO NEW ORDERS RECEIVED.
[2020-09-10] MEDS: HUMALOG SQ SCH ×4 (07:30→21:21)
[2020-09-10] MEDS: DECADRON IV SCH (08:19)
[2020-09-10] MEDS: LOPRESSER PO SCH ×2 (08:19→21:18)
[2020-09-10] MEDS: ZINC SULFATE PO SCH ×2 (08:19→21:18)
[2020-09-10] MEDS: VITAMIN C PO SCH ×2 (08:19→21:19)
[2020-09-10] MEDS: ZESTRIL PO SCH ×2 (08:20→21:18)
[2020-09-10] MEDS: LOVENOX SQ SCH ×2 (08:59→21:19)
--- NOTE | 2020-09-10 09:03 | DIREP ---
PROCEDURE:CHEST 1 VIEW COMPARISON:[facility], CR, XRAY CHEST 2 VWS, 09/04/2020, 03:08 PM. [facility], CR, XRAY CHEST SINGLE VW, 09/03/2020, 12:11 PM. INDICATIONS:COVID FINDINGS: LUNGS/PLEURA:Worsening peripherally predominant patchy opacities throughout the bilateral lungs. Costophrenic angles are obscured. No pneumothorax. VASCULATURE:Normal. Unremarkable pulmonary vasculature. CARDIAC:Normal. No cardiac silhouette abnormality or cardiomegaly. MEDIASTINUM:Normal. No visible mass or adenopathy. BONES:Stable. OTHER:Negative. CONCLUSION: 1. Worsening peripherally predominant patchy opacities throughout the bilateral lungs. Findings are in keeping with Covid 19 pneumonia. Dictated by: Luis Haley MD on 09/10/2020 at 09:01 AM
[2020-09-10] MEDS: NS 1000ML 1,000 ML IV SCH (12:00)
[2020-09-10] MEDS ORDERED: NS 250ML 250 ML IV ONE (12:50)
--- NOTE | 2020-09-10 13:26 | NUR ---
Plasma Pt educated on the adverse effects that may occur while receiving plasma. Pt verbalized understanding. Plasma started at 1323. Addendum: 09/10/20 at 1742 by CHUCK DAVIDSNO RN, RAC RN 1213- Plasma administer without any adverse side effects and VSS.
--- NOTE | 2020-09-10 17:42 | NUR ---
RN found pt laying in bed with NR lying on his chest. Pt directed to keep the NR on his face. RN educated pt on the need for the NR. Pt verbalized understanding.
[2020-09-10] MEDS: REMDESIVIR (EUA) 100 MG in NS 100ML 100 ML IV SCH (18:00)
--- NOTE | 2020-09-10 18:18 | PRM.PN ---
Subjective Subjective Date: Sep 10, 2020 Time: 18:11 Subjective Pt s/e this AM at bedside. He was doing well today and was sitting in bed resting comfortably. As usual, denies worsened shob, cough, fever, chills, CP, abdominal pain, n/v/d/c, or other acute symptoms. He is still requiring 15L via Non-rebreather, however, and was noted to desat overnight to at least the 80's. Review of Systems Other Review of systems including general, HEENT, neck, cardiopulmonary, GI, , neuro-musculoskeletal, hematologic, oncologic, endocrinology, infectious disease, dermatologic and psychiatric were reviewed with the patient and are negative unless otherwise noted in the HPI. Exam Vital Signs Vital Signs Date Time Temp Pulse Resp B/P (MAP) Pulse Ox O2 Delivery O2 Flow Rate FiO2 09/10/20 17:06 97.5 71 19 148/88 (108) 90 09/10/20 11:20 Non-Rebreather 15.00 09/10/20 08:15 100 General Appearance: Alert, Oriented X3, Cooperative, No acute distress HEENT: Atraumatic, PERRLA, EOMI Respiratory: Other (diminished bilaterally, scattered rales. otherwise no change ) Cardiovascular: Regular rate (NSR today), Normal S1, Normal S2, No murmurs Abdominal: Normal bowel sounds, Soft, No tenderness Extremities: No clubbing, No cyanosis, No edema, Normal pulses, No tenderness/swelling Skin: No rash, No breakdown, No lesions Neuro: Normal speech, Strength at 5/5 X4 ext, Normal tone, Sensation intact, Cranial nerves 3-12 NL Psych/Mental Status: Mental status NL, Mood NL Meds/Labs/Orders Medication List: Current Medications Medications (Trade) Dose Ordered Sig/Adrianna Route PRN Reason Start Time Stop Time Status Last Admin Dose Admin Acetaminophen (Tylenol) 325 mg Q4H PRN PO PAIN 1 - 3 09/03/20 19:00 09/05/20 19:26 DC Morphine Sulfate (Morphine Sulfate) 2 mg Q4H PRN IV PAIN 4 - 6 09/03/20 19:00 09/04/20 19:28 DC Insulin Human Lispro (Humalog) 0-140 0 Units 141-200... ACHS SQ 09/03/20 21:00 10/03/20 20:59 09/10/20 17:24 Dextrose 1,000 ml @ 100 mls/hr Q10H PRN IV HYPOGLYCEMIA 09/03/20 19:00 10/03/20 18:59 Dextrose (Dextrose 50%-Water Syringe) 25 ml STAT PRN IV HYPOGLYCEMIA 09/03/20 19:00 10/03/20 18:59 Glucagon (Glucagen) 1 mg STAT STAT IV 09/03/20 18:44 09/03/20 18:56 DC Heparin Sodium (Porcine) (Heparin) 5,000 unit Q8HR SQ 09/03/20 22:00 09/04/20 20:10 DC 09/04/20 14:00 Lisinopril (Zestril) 20 mg BID PO 09/03/20 21:00 10/03/20 20:59 09/10/20 08:20 Azithromycin 500 mg/Sodium Chloride 250 ml @ 175 mls/hr Q24HRS IV 09/03/20 20:30 09/04/20 08:15 DC 09/03/20 21:11 Ceftriaxone Sodium 1000 mg/ Sodium Chloride 100 ml @ 100 mls/hr Q24HRS IV 09/03/20 19:30 09/04/20 08:15 DC 09/03/20 19:39 Sodium Chloride 1,000 ml @ 75 mls/hr [id number] IV 09/03/20 20:00 10/03/20 19:59 09/10/20 12:00 Ceftriaxone Sodium (Rocephin) 1,000 mg STK-MED ONCE .ROUTE 09/03/20 19:35 09/03/20 19:35 DC Sodium Chloride 100 ml @ ud STK-MED ONCE IV 09/03/20 19:35 09/03/20 19:36 DC Zinc Sulfate (Zinc Sulfate) 220 mg DAILY PO 09/04/20 09:00 09/05/20 00:13 DC 09/04/20 08:22 Ascorbic Acid (Vitamin C) 500 mg BID PO 09/04/20 09:00 09/05/20 00:13 DC 09/04/20 20:22 Morphine Sulfate (Morphine Sulfate) 2 mg Q4H PRN IV PAIN 4 - 6 09/04/20 19:28 10/03/20 18:59 Enoxaparin Sodium (Lovenox) 75 mg BID SQ 09/04/20 20:30 09/05/20 11:39 DC 09/05/20 08:20 Azithromycin (Zithromax) 500 mg OT ONCE PO 09/05/20 00:00 09/05/20 02:22 DC 09/05/20 00:27 Ceftriaxone Sodium 2000 mg/ Sodium Chloride 100 ml @ 100 mls/hr Q24HRS IV 09/05/20 00:00 09/09/20 18:46 DC 09/08/20 23:59 Azithromycin (Zithromax) 250 mg DAILY PO 09/05/20 19:00 09/09/20 18:59 DC 09/09/20 08:31 Ceftriaxone Sodium (Rocephin) 1,000 mg STK-MED ONCE .ROUTE 09/05/20 00:25 09/05/20 00:26 DC Sodium Chloride 100 ml @ ud STK-MED ONCE IV 09/05/20 00:26 09/05/20 00:26 DC Enoxaparin Sodium (Lovenox) 40 mg DAILY SQ 09/06/20 09:00 09/09/20 18:47 DC 09/09/20 08:31 Ascorbic Acid (Vitamin C) 1,000 mg BID PO 09/05/20 21:00 10/05/20 20:59 09/10/20 08:19 Zinc Sulfate (Zinc Sulfate) 220 mg BID PO 09/05/20 21:00 10/05/20 20:59 09/10/20 08:19 Albuterol Sulfate (Ventolin Hfa) 2 inh RTQ4 IH 09/05/20 13:00 10/05/20 12:59 09/10/20 15:20 Acetaminophen (Tylenol) 1,000 mg Q6H PRN PO PAIN 1 - 3 09/05/20 12:00 10/05/20 11:59 09/06/20 09:35 Enoxaparin Sodium (Lovenox) 40 mg STK-MED ONCE SQ 09/06/20 07:12 09/06/20 07:12 DC Remdesivir 200 mg/ Sodium Chloride 140 ml @ 120.69 mls/ hr OT STAT IV 09/07/20 18:45 09/07/20 19:54 DC 09/07/20 19:10 Remdesivir 100 mg/ Sodium Chloride 120 ml @ 111.111 mls/hr Q24HRS IV 09/08/20 19:00 10/08/20 18:59 09/10/20 18:00 Potassium Chloride (Klor-Con 10) 40 meq OT PO 09/08/20 13:00 10/08/20 12:59 09/09/20 04:56 Metoprolol Tartrate (Lopresser) 10 mg STAT STAT IVP 09/09/20 11:00 09/09/20 11:04 DC 09/09/20 11:34 Metoprolol Tartrate (Lopresser) 25 mg BID PO 09/09/20 21:00 10/09/20 20:59 09/10/20 08:19 Enoxaparin Sodium (Lovenox) 80 mg BID SQ 09/09/20 19:00 10/04/20 20:29 09/10/20 08:59 Sodium Chloride 250 ml @ STK-MED ONCE IV 09/10/20 12:50 09/10/20 12:51 DC Lab results: Laboratory Tests Test 09/08/20 20:15 09/09/20 05:05 09/09/20 06:31 09/09/20 07:23 Bedside Glucose 217 169 White Blood Count 11.5 10^3/uL Red Blood Count 4.52 10^6/uL Hemoglobin 13.1 g/dL Hematocrit 37.4 % Mean Corpuscular Volume 82.7 fL Mean Corpuscular Hemoglobin 29.0 pg Mean Corpuscular Hemoglobin Concent 35.0 g/dL Red Cell Distribution Width 12.0 % Platelet Count 367 10^3/uL Mean Platelet Volume 9.2 fL Neutrophils (%) (Auto) 87.0 % Lymphocytes (%) (Auto) 5.3 % Monocytes (%) (Auto) 7.0 % Neutrophils # (Auto) 10.0 10^3/uL Lymphocytes # (Auto) 0.61 10^3/uL1 Monocytes # (Auto) 0.8 10^3/uL Absolute Immature Granulocyte (auto 0.07 10^3 u/L Absolute Eosinophils (auto) 0.0 10^3/uL Immature Granulocytes % 0.60 % Eosinophils % 0.0 % Basophils % 0.1 % Basophils # 0.0 10^3/uL Sodium Level 141 mmol/L Potassium Level 3.9 mmol/L Chloride Level 109.0 mmol/L Carbon Dioxide Level 22.4 mmol/L Anion Gap 13.5 Blood Urea Nitrogen 22 mg/dL Creatinine 0.81 mg/dL Estimated GFR () 116.1 Est GFR (CKD-EPI)(Non-Afr Norwegian) 95.9 BUN/Creatinine Ratio 27.0 Glucose Level 187 mg/dL Calcium Level 7.9 mg/dL Phosphorus Level 2.7 mg/dL Magnesium Level 2.0 mg/dL Total Bilirubin 0.4 mg/dL Aspartate Amino Transf (AST/SGOT) 32 U/L Alanine Aminotransferase (ALT/SGPT) 29 U/L Alkaline Phosphatase 44 U/L Total Protein 5.5 g/dL Albumin 2.0 g/dL Globulin 3.5 Albumin/Globulin Ratio 0.571 Segmented Neutrophils 91 % Lymphocytes 5 % Monocytes 4 % Platelet Estimate ADEQUATE Platelet Morphology NORMAL Test 09/09/20 07:39 09/09/20 11:15 09/09/20 16:50 09/09/20 19:54 Bedside Glucose 231 236 192 219 Test 09/10/20 04:26 09/10/20 04:54 09/10/20 07:10 09/10/20 11:33 White Blood Count 11.8 10^3/uL Red Blood Count 4.77 10^6/uL Hemoglobin 13.8 g/dL Hematocrit 39.8 % Mean Corpuscular Volume 83.4 fL Mean Corpuscular Hemoglobin 28.9 pg Mean Corpuscular Hemoglobin Concent 34.7 g/dL Red Cell Distribution Width 12.3 % Platelet Count 361 10^3/uL Mean Platelet Volume 9.2 fL Neutrophils (%) (Auto) 84.0 % Lymphocytes (%) (Auto) 9.0 % Monocytes (%) (Auto) 4.8 % Neutrophils # (Auto) 9.9 10^3/uL Lymphocytes # (Auto) 1.06 10^3/uL1 Monocytes # (Auto) 0.6 10^3/uL Absolute Immature Granulocyte (auto 0.23 10^3 u/L Absolute Eosinophils (auto) 0.0 10^3/uL Immature Granulocytes % 2.00 % Eosinophils % 0.1 % Basophils % 0.1 % Basophils # 0.0 10^3/uL D-Dimer 8.09 mg/L Sodium Level 140 mmol/L Potassium Level 3.7 mmol/L Chloride Level 106.0 mmol/L Carbon Dioxide Level 27.2 mmol/L Anion Gap 10.5 Blood Urea Nitrogen 19 mg/dL Creatinine 0.96 mg/dL Estimated GFR () 95.4 Est GFR (CKD-EPI)(Non-Afr Norwegian) 78.9 BUN/Creatinine Ratio 19.0 Glucose Level 100 mg/dL Calcium Level 7.9 mg/dL Phosphorus Level 2.4 mg/dL Magnesium Level 1.8 mg/dL Ferritin 1073 ng/mL Total Bilirubin 0.7 mg/dL Aspartate Amino Transf (AST/SGOT) 27 U/L Alanine Aminotransferase (ALT/SGPT) 29 U/L Alkaline Phosphatase 58 U/L Lactate Dehydrogenase 295 U/L Total Creatine Kinase 41 U/L C-Reactive Protein 3.25 mg/dL Total Protein 5.7 g/dL Albumin 2.0 g/dL Globulin 3.7 Albumin/Globulin Ratio 0.540 Procalcitonin 0.10 ng/mL Bedside Glucose 93 134 173 Test 09/10/20 16:46 Bedside Glucose 178 Assessment/Plan Assessment/Plan Assessment/Plan Pt Reji Garibay is a 64 y.o. male w/ PMH: HTN, HLD, DM II that was transferred from an ED in [place] for PNA and suspected COVID infection. Upon arrival, it was noted that pt was never tested for COVID infection although CXR showed PNA, he was presumed positive. Because I still had strong suspicion for COVID-19, another COVID PCR was obtained this morning. In the meantime, I started workup for other respiratory pathogens as well as workup for non- infectious causes of lung disease, fibrosis, and hypoxemia. However, his repeat COVID testing actually came back positive, so these tests were discontinued and he was started on treatment for Coronavirus # Acute Hypoxemic Respiratory Failure # COVID PNA - Pt had 2 negative covid tests, then tested positive on Sep 05 - CXR showing multifocal infiltrates consistent with COVID - procal obtained Sep 04 is elevated at 0.7, indicating possible superimposed bacterial infection - discontinue rocephin/Azithromycin pt received 5 days - CTA negative for PE - restarted therapeutic lovenox - IV Dexamethasone 8mg daily - Zinc and Vitamin C - continue Remdesivir - CCP x 2 units - monitor LFTs while on remdesivir - will place him on CPAP overnight to limit episodes of desaturation # NEW-ONSET ATRIAL FIBRILLATION # AFIB WITH RVR, resolved - No known history of atrial fibrillation in the past - has been tachycardic to 140-150s this AM - ECG showing Atrial fibrillation - gave IV metoprolol 10 once, which resolved RVR - start PO metoprolol 25 BID, - will start therapeutic anticoagulation with Lovenox 80 BID - Pt is undocumented and does not have the means to pay for DOACs, will discuss potential options with CM. May need to start bridging him to Warfarin if DOAC is not possible # HTN - Lisinopril 20 mg # DM II - SSI - hold home anti-hyperglycemics # HLD - cholesterol and LDL on lipid panel are actually very low - will not start statin; Pt can resume home medications on discharge VTE ppx: Lovenox 80 BID GI ppx: n/a Diet: diabetic CODE: salon shampoo assistant spent: > 25 min spent in chart review, patient evaluation, coordination of care, and documentation BAMBI KAUR MD Sep 10, 2020 18:18
[2020-09-10] MEDS ORDERED: LOVENOX SQ ONE (21:17)
[2020-09-11] VITALS (17 sets, daily range): BP systolic 128–166; BP diastolic 65–95
[2020-09-11] MEDS: ATIVAN IV PRN ×3 (00:28→13:00)
[2020-09-11] MEDS: NS 1000ML 1,000 ML IV SCH (01:20)
[2020-09-11] MEDS: VENTOLIN HFA IH SCH ×6 (01:20→21:00)
[2020-09-11 02:43] LABS: ABG PCO2 31.4 mmHg (35.0-45.0); ABG PH 7.398 (7.350-7.450); BE(B) -4.8 mmol/L (-2.0-2.0); HCO3act 18.9 mmol/L (22.0-26.0); pO2 54.5 mmHg (80.0-100.0)
--- NOTE | 2020-09-11 03:30 | NUR ---
Received patient from BRAVO Diaz from [facility]. Patient arrived via wheelchair, confused, unable to confirm name or . Oriented to room at this time. Transferred to bed with standby assist. x2 RT at bedside, patient currently on 15L on NRB o2 sat at 86%. SR 65. Afebrile. HOB to 40 degrees. PERRLA, Pulses +2. Bilateral Rhonchi, Bowel sounds present in all 4 quadrants. LBM 09/10/20. Small scabs to pubic area. . New 20g IV started to Right Forearm, MD called to verify continuous use of NRB and made aware of CPAP refusal. New order for continuous I/O place franz catheter. Inserted 16F Franz Catheter, patient tolerated well. Complete bed bath, linen change, electrodes replaced, o2 probe rotated. Bed to the lowest position. Call light within reach.
--- NOTE | 2020-09-11 03:45 | NUR ---
PT TRANSFERRED TO ICU VIA WHEELCHAIR. BEDSIDE REPORT GIVEN TO ANKITA RIVERA.
[2020-09-11 05:52] LABS: ABG PCO2 35.2 mmHg (35.0-45.0); ABG PH 7.405 (7.350-7.450); BE(B) -2.5 mmol/L (-2.0-2.0); HCO3act 21.6 mmol/L (22.0-26.0); pO2 53.5 mmHg (80.0-100.0)
[2020-09-11 05:53] LABS: BASOPHIL % 0.1 % (0.0-0.2); LYMPHOCYTES # 0.68 10^3/uL1 (1.0-4.8); LYMPHOCYTES % 5.9 % (24.0-44.0); MEAN CORP HGB 28.8 pg (26-34); MONOCYTES # 0.6 10^3/uL (0.3-0.8); PLATELET COUNT 296 10^3/uL (150-400); RED CELL DISTRIBUTION WIDTH 12.2 % (11.5-14.5)
[2020-09-11 06:24] LABS: CALCIUM 8.3 mg/dL (8.4-10.5); CARBON DIOXIDE 23.2 mmol/L (20.0-32)
[2020-09-11] MEDS: HUMALOG SQ SCH ×4 (07:30→21:00)
[2020-09-11 07:51] LABS: ABG PCO2 36.1 mmHg (35.0-45.0); ABG PH 7.398 (7.350-7.450); BE(B) -2.5 mmol/L (-2.0-2.0); HCO3act 21.8 mmol/L (22.0-26.0); pO2 52.5 mmHg (80.0-100.0)
[2020-09-11] MEDS: DECADRON IV SCH (09:00)
[2020-09-11] MEDS: VITAMIN C PO SCH ×2 (09:00→21:00)
[2020-09-11] MEDS: LOPRESSER PO SCH ×2 (09:00→21:00)
[2020-09-11] MEDS: ZINC SULFATE PO SCH ×2 (09:00→21:00)
[2020-09-11] MEDS: LOVENOX SQ SCH ×2 (09:00→21:00)
[2020-09-11] MEDS: ZESTRIL PO SCH ×2 (09:00→21:00)
--- NOTE | 2020-09-11 09:00 | NUR ---
Assisted with MIGUEL Elise to translate. Patient orientated to self confused by time, place and situation, re-orientated to situation, place and time. Educated patient on need for non-rebreather and the seriousness of treatment plan and need to lay completely on side or prone. Tolerated PO meds, did not have an appetite for breakfast. Blood sugar 133. Insulin held per order. No complaints of pain and nausea. Call light placed in reach and demonstrated how to use
--- NOTE | 2020-09-11 09:05 | NUR ---
Patient took off mask, ovygen dropped to 80 percent. Reorientated x3 patient nodded head he understood and reapplied mask. Oxygen saturation increased to [address] Young provider on unit to assess patient. Provider stated to discontinue maintenance fluids
--- NOTE | 2020-09-11 10:05 | NUR ---
Patient took off mask, ovygen dropped to 75 percent. Reorientated x3 patient nodded head he understood and reapplied mask. Oxygen saturation increased to 90 precent
--- NOTE | 2020-09-11 11:02 | DIET.OP ---
Nutrition Asmt/Malnutrit 2-17 Actual Date of Review: Sep 11, 2020 Diagnosis: Covid 19, Acute Hypoxemic Respiratory Failure Pertinent Medical Hx/Surgical: HTN, HLD, T2DM Subjective Information: telehealth f/u- pt moved to ICU Current Diet Order/Nutrition S: 1800 elkin ADA Patient /S.O: Not Indicated Pertinent Meds Current Medications Medications (Trade) Dose Ordered Sig/Adrianna Route PRN Reason Start Time Stop Time Status Last Admin Dose Admin Acetaminophen (Tylenol) 325 mg Q4H PRN PO PAIN 1 - 3 09/03/20 19:00 09/05/20 19:26 DC Morphine Sulfate (Morphine Sulfate) 2 mg Q4H PRN IV PAIN 4 - 6 09/03/20 19:00 09/04/20 19:28 DC Insulin Human Lispro (Humalog) 0-140 0 Units 141-200... ACHS SQ 09/03/20 21:00 10/03/20 20:59 09/10/20 21:21 Dextrose 1,000 ml @ 100 mls/hr Q10H PRN IV HYPOGLYCEMIA 09/03/20 19:00 10/03/20 18:59 Dextrose (Dextrose 50%-Water Syringe) 25 ml STAT PRN IV HYPOGLYCEMIA 09/03/20 19:00 10/03/20 18:59 Glucagon (Glucagen) 1 mg STAT STAT IV 09/03/20 18:44 09/03/20 18:56 DC Heparin Sodium (Porcine) (Heparin) 5,000 unit Q8HR SQ 09/03/20 22:00 09/04/20 20:10 DC 09/04/20 14:00 Lisinopril (Zestril) 20 mg BID PO 09/03/20 21:00 10/03/20 20:59 09/11/20 09:00 Azithromycin 500 mg/Sodium Chloride 250 ml @ 175 mls/hr Q24HRS IV 09/03/20 20:30 09/04/20 08:15 DC 09/03/20 21:11 Ceftriaxone Sodium 1000 mg/ Sodium Chloride 100 ml @ 100 mls/hr Q24HRS IV 09/03/20 19:30 09/04/20 08:15 DC 09/03/20 19:39 Sodium Chloride 1,000 ml @ 75 mls/hr [id number] IV 09/03/20 20:00 09/11/20 10:16 DC 09/11/20 01:20 Ceftriaxone Sodium (Rocephin) 1,000 mg STK-MED ONCE .ROUTE 09/03/20 19:35 09/03/20 19:35 DC Sodium Chloride 100 ml @ ud STK-MED ONCE IV 09/03/20 19:35 09/03/20 19:36 DC Zinc Sulfate (Zinc Sulfate) 220 mg DAILY PO 09/04/20 09:00 09/05/20 00:13 DC 09/04/20 08:22 Ascorbic Acid (Vitamin C) 500 mg BID PO 09/04/20 09:00 09/05/20 00:13 DC 09/04/20 20:22 Morphine Sulfate (Morphine Sulfate) 2 mg Q4H PRN IV PAIN 4 - 6 09/04/20 19:28 10/03/20 18:59 Enoxaparin Sodium (Lovenox) 75 mg BID SQ 09/04/20 20:30 09/05/20 11:39 DC 09/05/20 08:20 Azithromycin (Zithromax) 500 mg OT ONCE PO 09/05/20 00:00 09/05/20 02:22 DC 09/05/20 00:27 Ceftriaxone Sodium 2000 mg/ Sodium Chloride 100 ml @ 100 mls/hr Q24HRS IV 09/05/20 00:00 09/09/20 18:46 DC 09/08/20 23:59 Azithromycin (Zithromax) 250 mg DAILY PO 09/05/20 19:00 09/09/20 18:59 DC 09/09/20 08:31 Ceftriaxone Sodium (Rocephin) 1,000 mg STK-MED ONCE .ROUTE 09/05/20 00:25 09/05/20 00:26 DC Sodium Chloride 100 ml @ ud STK-MED ONCE IV 09/05/20 00:26 09/05/20 00:26 DC Enoxaparin Sodium (Lovenox) 40 mg DAILY SQ 09/06/20 09:00 09/09/20 18:47 DC 09/09/20 08:31 Ascorbic Acid (Vitamin C) 1,000 mg BID PO 09/05/20 21:00 10/05/20 20:59 09/11/20 09:00 Zinc Sulfate (Zinc Sulfate) 220 mg BID PO 09/05/20 21:00 10/05/20 20:59 09/11/20 09:00 Albuterol Sulfate (Ventolin Hfa) 2 inh RTQ4 IH 09/05/20 13:00 10/05/20 12:59 09/11/20 08:40 Acetaminophen (Tylenol) 1,000 mg Q6H PRN PO PAIN 1 - 3 09/05/20 12:00 10/05/20 11:59 09/06/20 09:35 Enoxaparin Sodium (Lovenox) 40 mg STK-MED ONCE SQ 09/06/20 07:12 09/06/20 07:12 DC Remdesivir 200 mg/ Sodium Chloride 140 ml @ 120.69 mls/ hr OT STAT IV 09/07/20 18:45 09/07/20 19:54 DC 09/07/20 19:10 Remdesivir 100 mg/ Sodium Chloride 120 ml @ 111.111 mls/hr Q24HRS IV 09/08/20 19:00 10/08/20 18:59 09/10/20 18:00 Potassium Chloride (Klor-Con 10) 40 meq OT PO 09/08/20 13:00 10/08/20 12:59 09/09/20 04:56 Metoprolol Tartrate (Lopresser) 10 mg STAT STAT IVP 09/09/20 11:00 09/09/20 11:04 DC 09/09/20 11:34 Metoprolol Tartrate (Lopresser) 25 mg BID PO 09/09/20 21:00 10/09/20 20:59 09/11/20 09:00 Enoxaparin Sodium (Lovenox) 80 mg BID SQ 09/09/20 19:00 10/04/20 20:29 09/11/20 09:00 Sodium Chloride 250 ml @ ud STK-MED ONCE IV 09/10/20 12:50 09/10/20 12:51 DC Enoxaparin Sodium (Lovenox) 80 mg STK-MED ONCE SQ 09/10/20 21:17 09/10/20 21:17 DC Lorazepam (Ativan) 1 mg Q4HR PRN IV ANXIETY 09/11/20 00:30 10/11/20 00:29 09/11/20 09:00 Pertinent Labs BG 133 mg/dl BUN 22 alb 2 Height (Feet): 5 Height (Inches): 6 Current Weight: 170 %IBW: 117 Recent Weight Change: No Weight Status: Overweight GI Symptoms: None Food Allergies: No Cultural/Ethnic/Taoist [place]lou: none identified Current %PO: 0-100%, 50 and 100 of lunch and dinner yesterday and refused bfast this am BEE in Kcals: Use Current Weight Calories/Kcals/Kg: MSJ 1.2-1.4 Kcals Calculated: 8534-0837 kcal Protein: Use Current Weight Protein g/k.8-1 g/kg Protein Calculated: 60-75g Fluid: ml: 9885-6709 ml or 1 ml/kcal Nutritional Problem: Nutr. Problems Present Problems: Inadequate energy intake r/t SOB/reduced appetite AEB 0-50% po intake, pt refusing meals. Recommendations by RD: Add supplement feedings RD Comments: 1. Continue 1800 elkin ADA diet, encouraging po intake. 2. Recommend Glucerna oral supplement BID to help meet nutritional needs. 3. Continue to monitor BG and correct as indicated. RD to monitor po intake, oral supplement acceptance, weight, education needs, and care plan. Expected Outcomes 75-100% po intake of meals to meet nutrition needs the next 3 days. Discharge on regular diet. RD to provide DM diet ed when appropriate. Malnutrtion/Nutrition Risk Edu: No MD Notificiation Needed?: No Jessica Morris Sep 11, 2020 11:02
--- NOTE | 2020-09-11 13:17 | PRM.PN ---
Subjective Subjective Date: Sep 11, 2020 Time: 13:04 Subjective patient was evaluated bedside and he denies having a cough, shortness of breath comprehension maybe questionable oriented to person - not time or place compliant with NRB at 15 liters no acute events overnight VTE VTE Risk Total Score: 2 VTE Risk Score VTE Risk: Score 0-1 = Low Risk (Aggressive mobilization; early ambulation; no VTE prophylaxis required) Score 2: Moderate Risk (Intermittent/Pneumatic Compression Device OR Lovenox/Heparin/Coumadin) Score 3-4: High Risk (Intermittent/Pneumatic Compression Device AND Lovenox/Heparin/Coumadin) Score > or =5: Highest Risk (Intermittent/Pneumatic Compression Device AND Lovenox/Heparin/Coumadin) Antico:Hep/LMWH/Coum/Xarelto: Yes Review of Systems Allergies: Coded Allergies: No Known Allergies (Unverified , 09/03/20) Scheduled Lisinopril (Lisinopril), 1 TAB PO BID, (Reported) Metformin Hcl (Metformin Hcl), 1,000 MG PO BID, (Reported) Objective Vitals and I/O Vital Sign - Last 24 Hours 09/11/20 09/11/20 09/11/20 09/11/20 07:00 07:00 07:30 08:00 Temp 98.0 Pulse 62 67 Resp 28 27 B/P (MAP) 160/83 (108) 150/75 (100) Pulse Ox 96 91 O2 Delivery Non-Rebreather O2 Flow Rate 15.00 09/11/20 09/11/20 09/11/20 09/11/20 08:25 08:40 09:00 09:00 Pulse 65 87 81 Resp 22 19 B/P (MAP) 149/72 149/86 Pulse Ox 93 94 O2 Delivery Non-Rebreather O2 Flow Rate 15.00 FiO2 100 09/11/20 09/11/20 09/11/20 09/11/20 09:00 10:00 11:00 12:00 Pulse 67 74 68 Resp 25 30 35 B/P (MAP) 149/72 (97) 128/69 (88) 134/65 (88) Pulse Ox 93 88 91 O2 Delivery Non-Rebreather O2 Flow Rate 15.00 Intake and Output 09/11/20 07:00 Intake Total 335 ml Output Total 670 ml Balance -335 ml General: Alert, Oriented X3 (oriented to person ), Cooperative, No acute distress HEENT: Atraumatic, PERRLA, EOMI, Mucous membr. moist/pink Neck: Supple, No JVD, No thyromegaly Lungs: Other (diminished bilaterally, scattered rales. e ) Heart: Regular rate (below 100 ), Normal S1, Normal S2, No murmurs Abdomen: Normal bowel sounds, Soft, No tenderness Extremities: No clubbing, No cyanosis, No edema, Normal pulses, No tenderness/swelling Skin: No rashes, No breakdown, No significant lesion Neuro: Normal speech, Strength at 5/5 X4 ext, Normal tone, Sensation intact, Cranial nerves 3-12 NL Psych/Mental Status: Mental status NL, Mood NL All Results(Lab/Rad) Laboratory Tests Test 09/03/20 21:02 09/04/20 04:47 09/04/20 05:59 09/04/20 07:15 Bedside Glucose 164 120 123 White Blood Count 8.1 10^3/uL Red Blood Count 4.89 10^6/uL Hemoglobin 14.2 g/dL Hematocrit 40.7 % Mean Corpuscular Volume 83.2 fL Mean Corpuscular Hemoglobin 29.0 pg Mean Corpuscular Hemoglobin Concent 34.9 g/dL Red Cell Distribution Width 12.0 % Platelet Count 185 10^3/uL Mean Platelet Volume 9.6 fL Neutrophils (%) (Auto) 83.5 % Lymphocytes (%) (Auto) 9.7 % Monocytes (%) (Auto) 6.0 % Neutrophils # (Auto) 6.8 10^3/uL Lymphocytes # (Auto) 0.79 10^3/uL1 Monocytes # (Auto) 0.5 10^3/uL Absolute Immature Granulocyte (auto 0.05 10^3 u/L Absolute Eosinophils (auto) 0.0 10^3/uL Immature Granulocytes % 0.60 % Eosinophils % 0.0 % Basophils % 0.2 % Basophils # 0.0 10^3/uL Sodium Level 132 mmol/L Potassium Level 3.6 mmol/L Chloride Level 97.0 mmol/L Carbon Dioxide Level 26.0 mmol/L Anion Gap 12.6 Blood Urea Nitrogen 21 mg/dL Creatinine 1.18 mg/dL Estimated GFR () 75.2 Est GFR (CKD-EPI)(Non-Afr Cambodian) 62.1 BUN/Creatinine Ratio 17.0 Glucose Level 118 mg/dL Hemoglobin A1c 8.0 % Calcium Level 8.3 mg/dL Total Bilirubin 0.7 mg/dL Aspartate Amino Transf (AST/SGOT) 55 U/L Alanine Aminotransferase (ALT/SGPT) 37 U/L Alkaline Phosphatase 40 U/L Total Protein 6.5 g/dL Albumin 2.3 g/dL Globulin 4.2 Albumin/Globulin Ratio 0.547 Triglycerides Level 65 mg/dL Cholesterol Level 76 mg/dL LDL Cholesterol, Calculated 26.0 VLDL Cholesterol, Calculated 13.0 HDL Cholesterol 37 mg/dL Cholesterol Ratio (LDL/HDL) 0.7 Cholesterol/HDL Ratio [id number] Test 09/04/20 11:37 09/04/20 12:22 09/04/20 16:36 Bedside Glucose 159 131 D-Dimer 1.85 mg/L Troponin I < 0.02 ng/mL Pro-B-Type Natriuretic Peptide 97 pg/mL Current Medications Medications (Trade) Dose Ordered Sig/Adrianna Route PRN Reason Start Time Stop Time Status Last Admin Dose Admin Acetaminophen (Tylenol) 325 mg Q4H PRN PO PAIN 1 - 3 09/03/20 19:00 10/03/20 18:59 Morphine Sulfate (Morphine Sulfate) 2 mg Q4H PRN IV PAIN 4 - 6 09/03/20 19:00 09/04/20 19:28 DC Insulin Human Lispro (Humalog) 0-140 0 Units 141-200... ACHS SQ 09/03/20 21:00 10/03/20 20:59 09/04/20 11:30 Dextrose 1,000 ml @ 100 mls/hr Q10H PRN IV HYPOGLYCEMIA 09/03/20 19:00 10/03/20 18:59 Dextrose (Dextrose 50%-Water Syringe) 25 ml STAT PRN IV HYPOGLYCEMIA 09/03/20 19:00 10/03/20 18:59 Glucagon (Glucagen) 1 mg STAT STAT IV 09/03/20 18:44 09/03/20 18:56 DC Heparin Sodium (Porcine) (Heparin) 5,000 unit Q8HR SQ 09/03/20 22:00 10/03/20 21:59 09/04/20 14:00 Lisinopril (Zestril) 20 mg BID PO 09/03/20 21:00 10/03/20 20:59 09/04/20 08:22 Azithromycin 500 mg/Sodium Chloride 250 ml @ 175 mls/hr Q24HRS IV 09/03/20 20:30 09/04/20 08:15 DC 09/03/20 21:11 Ceftriaxone Sodium 1000 mg/ Sodium Chloride 100 ml @ 100 mls/hr Q24HRS IV 09/03/20 19:30 09/04/20 08:15 DC 09/03/20 19:39 Sodium Chloride 1,000 ml @ 75 mls/hr [id number] IV 09/03/20 20:00 10/03/20 19:59 09/04/20 09:20 Ceftriaxone Sodium (Rocephin) 1,000 mg STK-MED ONCE .ROUTE 09/03/20 19:35 09/03/20 19:35 DC Sodium Chloride 100 ml @ ud STK-MED ONCE IV 09/03/20 19:35 09/03/20 19:36 DC Zinc Sulfate (Zinc Sulfate) 220 mg DAILY PO 09/04/20 09:00 10/04/20 08:59 09/04/20 08:22 Ascorbic Acid (Vitamin C) 500 mg BID PO 09/04/20 09:00 10/04/20 08:59 09/04/20 08:22 Morphine Sulfate (Morphine Sulfate) 2 mg Q4H PRN IV PAIN 4 - 6 09/04/20 19:28 10/03/20 18:59 Course Sepsis Screening Results: Posi: POSITIVE Sepsis Qualifier/Stage: SEPSIS RISK DATE SEEN BY PHYSICIAN: Sep 11, 2020 TIME SEEN BY PROVIDER: 13:20 Vitals & review Data Vital Sign - Last 24 Hours 09/11/20 09/11/20 09/11/20 09/11/20 07:00 07:00 07:30 08:00 Temp 98.0 Pulse 62 67 Resp 28 27 B/P (MAP) 160/83 (108) 150/75 (100) Pulse Ox 96 91 O2 Delivery Non-Rebreather O2 Flow Rate 15.00 09/11/20 09/11/20 09/11/20 09/11/20 08:25 08:40 09:00 09:00 Pulse 65 87 81 Resp 22 19 B/P (MAP) 149/72 149/86 Pulse Ox 93 94 O2 Delivery Non-Rebreather O2 Flow Rate 15.00 FiO2 100 09/11/20 09/11/20 09/11/20 09/11/20 09:00 10:00 11:00 12:00 Pulse 67 74 68 Resp 25 30 35 B/P (MAP) 149/72 (97) 128/69 (88) 134/65 (88) Pulse Ox 93 88 91 O2 Delivery Non-Rebreather O2 Flow Rate 15.00 Intake and Output 09/11/20 07:00 Intake Total 335 ml Output Total 670 ml Balance -335 ml Laboratory Tests Test 09/09/20 16:50 09/09/20 19:54 09/10/20 04:26 09/10/20 04:54 Bedside Glucose 192 219 93 White Blood Count 11.8 10^3/uL Red Blood Count 4.77 10^6/uL Hemoglobin 13.8 g/dL Hematocrit 39.8 % Mean Corpuscular Volume 83.4 fL Mean Corpuscular Hemoglobin 28.9 pg Mean Corpuscular Hemoglobin Concent 34.7 g/dL Red Cell Distribution Width 12.3 % Platelet Count 361 10^3/uL Mean Platelet Volume 9.2 fL Neutrophils (%) (Auto) 84.0 % Lymphocytes (%) (Auto) 9.0 % Monocytes (%) (Auto) 4.8 % Neutrophils # (Auto) 9.9 10^3/uL Lymphocytes # (Auto) 1.06 10^3/uL1 Monocytes # (Auto) 0.6 10^3/uL Absolute Immature Granulocyte (auto 0.23 10^3 u/L Absolute Eosinophils (auto) 0.0 10^3/uL Immature Granulocytes % 2.00 % Eosinophils % 0.1 % Basophils % 0.1 % Basophils # 0.0 10^3/uL D-Dimer 8.09 mg/L Sodium Level 140 mmol/L Potassium Level 3.7 mmol/L Chloride Level 106.0 mmol/L Carbon Dioxide Level 27.2 mmol/L Anion Gap 10.5 Blood Urea Nitrogen 19 mg/dL Creatinine 0.96 mg/dL Estimated GFR () 95.4 Est GFR (CKD-EPI)(Non-Afr Cambodian) 78.9 BUN/Creatinine Ratio 19.0 Glucose Level 100 mg/dL Calcium Level 7.9 mg/dL Phosphorus Level 2.4 mg/dL Magnesium Level 1.8 mg/dL Ferritin 1073 ng/mL Total Bilirubin 0.7 mg/dL Aspartate Amino Transf (AST/SGOT) 27 U/L Alanine Aminotransferase (ALT/SGPT) 29 U/L Alkaline Phosphatase 58 U/L Lactate Dehydrogenase 295 U/L Total Creatine Kinase 41 U/L C-Reactive Protein 3.25 mg/dL Total Protein 5.7 g/dL Albumin 2.0 g/dL Globulin 3.7 Albumin/Globulin Ratio 0.540 Procalcitonin 0.10 ng/mL Test 09/10/20 07:10 09/10/20 11:33 09/10/20 16:46 09/10/20 19:51 Bedside Glucose 134 173 178 169 Test 09/11/20 01:56 09/11/20 02:03 09/11/20 05:13 09/11/20 05:14 Bedside Glucose 159 145 Blood Gas Sample Site LB Blood Gas pH 7.398 Blood Gas PCO2 31.4 mmHg Blood Gas PO2 54.5 mmHg Blood Gas HCO3 18.9 mmol/L Blood Gas Base Excess -4.8 mmol/L Abdi Test POSITIVE Arterial Blood Oxygen Saturation 87.1 % Deoxyhemoglobin 12.9 % Carboxyhemoglobin 0.3 % Methemoglobin 0.0 % Total Hemoglobin 13.4 % Total Oxygen Concentration 16.3 % Blood Gas Temperature 37 Oxygen Delivery Method (LAB) NON-REBREATHER MASK FiO2 100 % Total Carbon Dioxide 19.9 mmol/L White Blood Count 11.5 10^3/uL Red Blood Count 4.66 10^6/uL Hemoglobin 13.4 g/dL Hematocrit 39.1 % Mean Corpuscular Volume 83.9 fL Mean Corpuscular Hemoglobin 28.8 pg Mean Corpuscular Hemoglobin Concent 34.3 g/dL Red Cell Distribution Width 12.2 % Platelet Count 296 10^3/uL Mean Platelet Volume 9.2 fL Neutrophils (%) (Auto) 87.0 % Lymphocytes (%) (Auto) 5.9 % Monocytes (%) (Auto) 5.0 % Neutrophils # (Auto) 10.0 10^3/uL Lymphocytes # (Auto) 0.68 10^3/uL1 Monocytes # (Auto) 0.6 10^3/uL Absolute Immature Granulocyte (auto 0.23 10^3 u/L Absolute Eosinophils (auto) 0.0 10^3/uL Immature Granulocytes % 2.00 % Eosinophils % 0.0 % Basophils % 0.1 % Basophils # 0.0 10^3/uL Sodium Level 139 mmol/L Potassium Level 3.9 mmol/L Chloride Level 106.0 mmol/L Carbon Dioxide Level 23.2 mmol/L Anion Gap 13.7 Blood Urea Nitrogen 22 mg/dL Creatinine 0.88 mg/dL Estimated GFR () 105.5 Est GFR (CKD-EPI)(Non-Afr Cambodian) 87.2 BUN/Creatinine Ratio 25.0 Glucose Level 151 mg/dL Calcium Level 8.3 mg/dL Phosphorus Level 3.1 mg/dL Magnesium Level 2.3 mg/dL Total Bilirubin 0.7 mg/dL Aspartate Amino Transf (AST/SGOT) 27 U/L Alanine Aminotransferase (ALT/SGPT) 23 U/L Alkaline Phosphatase 71 U/L Total Protein 5.7 g/dL Albumin 2.0 g/dL Globulin 3.7 Albumin/Globulin Ratio 0.540 Test 09/11/20 05:41 09/11/20 07:35 09/11/20 07:50 09/11/20 11:42 Blood Gas Sample Site RT RADIAL ARTERY RR Blood Gas pH 7.405 7.398 Blood Gas PCO2 35.2 mmHg 36.1 mmHg Blood Gas PO2 53.5 mmHg 52.5 mmHg Blood Gas HCO3 21.6 mmol/L 21.8 mmol/L Blood Gas Base Excess -2.5 mmol/L -2.5 mmol/L Abdi Test POSITIVE POSITIVE Arterial Blood Oxygen Saturation 87.9 % 86.0 % Deoxyhemoglobin 12.1 % 13.9 % Carboxyhemoglobin 0 % 0.6 % Methemoglobin 0.1 % 0.3 % Total Hemoglobin 14.0 % 13.9 % Total Oxygen Concentration 17.3 % 16.6 % Blood Gas Temperature 37 37 Oxygen Delivery Method (LAB) NON-REBREATHER MASK NON-REBREATHER MASK FiO2 100 % 100 % Total Carbon Dioxide 22.6 mmol/L 22.9 mmol/L Bedside Glucose 133 185 Current Medications Medications (Trade) Dose Ordered Sig/Adrianna PRN Reason Start Time Stop Time Status Last Admin Enoxaparin Sodium (Lovenox) 80 mg BID 09/09/20 19:00 10/04/20 20:29 09/11/20 09:00 Lorazepam (Ativan) 1 mg Q4HR PRN ANXIETY 09/11/20 00:30 10/11/20 00:29 09/11/20 09:00 Metoprolol Tartrate (Lopresser) 25 mg BID 09/09/20 21:00 10/09/20 20:59 09/11/20 09:00 Remdesivir 100 mg/ Sodium Chloride 120 ml @ 111.111 mls/hr Q24HRS 09/08/20 19:00 10/08/20 18:59 09/10/20 18:00 LEVEL 1 SEPSIS INFECTION CRITE: ABX Therapy, Cough/Shortness of Breath, Flu- Pneumonia LEVEL 2-SIRS (LIST ALL THAT AP: RR>20/min Cardiovascular Evidence: Not Assessed or None Hematologic Evidence: None/Not assessed Hepatic Evidence: None/Not assessed Metabolic Evidence: None/Not assessed Neurological Evidence: Altered Mental Status Respiratory Evidence: Acute Resp failure, Need for O2 to keep>90%, O2 SAT<90room air Renal Evidence: None/Not assessed O2 Sat by Pulse Oximetry: 91 Oxygen Flow Rate: 15.00 Assessment/Plan Assessment/Plan Assessment/Plan ACUTE RESPIRATORY FAILURE WITH HYPOXIA - Continue on oxygen supplementation - wean as needed COVID PNEUMONIA - empiric antibiotic course completed - isolate - determine deescalation date - lovenox - completed remdesivir - ongoing steroid regimen - prone if possible HYPERTENSION - stable on current regimen - lisinopril - creatinine - normal - PROBNP noted - discontinue IVFluids DIABETES MELLITUS - sliding scale - check for past control - anticipate increase due to decadron - encourage PO intake ACUTE METABOLIC ENCEPHALOPATHY - he may have premorbid condition or diagnosis - neurochecks - TSH check - review CT scan head SALOME WATERS MD Sep 11, 2020 13:17
[2020-09-11 15:13] LABS: CYTOPLASMIC (C-ANCA) <1:20 titer (Neg:<1:20)
--- NOTE | 2020-09-11 16:16 | TELE.CONS ---
Consultation Reason for Consult: Reason for Consultation: COVID/Hypoxic failure Review of Systems Allergies: Coded Allergies: No Known Allergies (Unverified , 09/03/20) Scheduled Lisinopril (Lisinopril), 1 TAB PO BID, (Reported) Metformin Hcl (Metformin Hcl), 1,000 MG PO BID, (Reported) VITALS REVIEW VITALS Vital Sign - Last 24 Hours 09/11/20 09/11/20 09/11/20 09/11/20 07:00 07:00 07:30 08:00 Temp 98.0 Pulse 62 67 Resp 28 27 B/P (MAP) 160/83 (108) 150/75 (100) Pulse Ox 96 91 O2 Delivery Non-Rebreather O2 Flow Rate 15.00 09/11/20 09/11/20 09/11/20 09/11/20 08:25 08:40 09:00 09:00 Pulse 65 87 81 Resp 22 19 B/P (MAP) 149/72 149/86 Pulse Ox 93 94 O2 Delivery Non-Rebreather O2 Flow Rate 15.00 FiO2 100 09/11/20 09/11/20 09/11/20 09/11/20 09:00 10:00 11:00 12:00 Pulse 67 74 68 68 Resp 25 30 35 31 B/P (MAP) 149/72 (97) 128/69 (88) 134/65 (88) 144/72 (96) Pulse Ox 93 88 91 90 09/11/20 09/11/20 09/11/20 09/11/20 12:00 13:00 13:25 14:00 Pulse 80 77 Resp 38 36 39 B/P (MAP) 153/90 (111) 146/90 (108) Pulse Ox 90 94 93 O2 Delivery Non-Rebreather O2 Flow Rate 15.00 Intake and Output 09/11/20 06:00 Intake Total 335 ml Output Total 670 ml Balance -335 ml VTE VTE Risk Total Score: 2 VTE Risk Score VTE Risk: Score 0-1 = Low Risk (Aggressive mobilization; early ambulation; no VTE prophylaxis required) Score 2: Moderate Risk (Intermittent/Pneumatic Compression Device OR Lovenox/Heparin/Coumadin) Score 3-4: High Risk (Intermittent/Pneumatic Compression Device AND Lovenox/Heparin/Coumadin) Score > or =5: Highest Risk (Intermittent/Pneumatic Compression Device AND Lovenox/Heparin/Coumadin) Antico:Hep/LMWH/Coum/Xarelto: Yes VTE VTE Present on Admission: No Currently receiving anticoagul: No VTE Risk Total Score: 2 Antico:Hep/LMWH/Coum/Xarelto: Yes Assessment/Plan Assessment/Plan Assessment/Plan 64yo male with COVID/Hypoxic failure Remains on 100% NRB 7.39/36/52/21 on 100% Alert; No distress Tachypnea to the 40s No shock physiology Adequate renal function Slight leukocytosis A/P COVID, Hypoxic failure Neuro intact; At risk of developing encephalopathy Hypoxic on 100% NRB; Did not tolerate NIPPV; Continue; At high risk of needing mechanical ventilation On Remdesivir; Do not see steroids ordered; CRP moderately elevated; Will add steroids Would be careful with oral long acting hypertensives BB/AceI Full dose anticoagulation in place Patient is critically ill. i spent 60 minutes assessing patient, reviewing EMR, and discussing with staff using 2way audiovisual technology. MOHIT GAN MD Sep 11, 2020 16:16
[2020-09-11] MEDS: REMDESIVIR (EUA) 100 MG in NS 100ML 100 ML IV SCH (18:00)
[2020-09-11] MEDS ORDERED: DEPO-MEDROL IM SCH (22:00)
[2020-09-12] VITALS (20 sets, daily range): BP systolic 111–172; BP diastolic 61–87
[2020-09-12] MEDS: VENTOLIN HFA IH SCH ×6 (00:25→20:05)
[2020-09-12 04:28] LABS: BASOPHIL % 0.1 % (0.0-0.2); LYMPHOCYTES # 0.64 10^3/uL1 (1.0-4.8); LYMPHOCYTES % 3.9 % (24.0-44.0); MEAN CORP HGB 29.7 pg (26-34); MONOCYTES # 0.8 10^3/uL (0.3-0.8); NEUTROPHIL # 14.6 10^3/uL (1.8-7.7); NEUTROPHILS % 89.5 % (41.0-85.0); PLATELET COUNT 316 10^3/uL (150-400); RED CELL DISTRIBUTION WIDTH 12.3 % (11.5-14.5)
[2020-09-12 04:59] LABS: CALCIUM 8.3 mg/dL (8.4-10.5); CARBON DIOXIDE 26.4 mmol/L (20.0-32)
[2020-09-12] MEDS: HUMALOG SQ SCH ×4 (07:15→21:00)
[2020-09-12 07:29] LABS: ABG PCO2 33.6 mmHg (35.0-45.0); ABG PH 7.429 (7.350-7.450); BE(B) -1.7 mmol/L (-2.0-2.0); HCO3act 21.8 mmol/L (22.0-26.0); pO2 47.2 mmHg (80.0-100.0)
[2020-09-12] MEDS: ATIVAN IV PRN ×2 (07:55→23:27)
[2020-09-12] MEDS: LOVENOX SQ SCH ×2 (08:05→21:00)
[2020-09-12] MEDS: ZINC SULFATE PO SCH ×2 (08:05→21:00)
[2020-09-12] MEDS: VITAMIN C PO SCH ×2 (08:06→21:00)
[2020-09-12] MEDS: LOPRESSER PO SCH ×2 (08:06→21:00)
[2020-09-12] MEDS: ZESTRIL PO SCH ×2 (08:06→21:00)
[2020-09-12] MEDS: DECADRON IV SCH (08:07)
--- NOTE | 2020-09-12 09:10 | NUR ---
Patient was tolerating cpap from 0815 until now, patient became anxious and pulled off mask, desat to 73, placed patient back on nonrebreather and reorientated and educated patient on need for treatment plan with oxygen. Had patient lay in prone position to improve oxygenation. Tolerated self repositioning well.
--- NOTE | 2020-09-12 12:01 | TELE.CONS ---
Consultation Reason for Consult: Reason for Consultation: resp failure, covid Review of Systems Allergies: Coded Allergies: No Known Allergies (Unverified , 09/03/20) Scheduled Lisinopril (Lisinopril), 1 TAB PO BID, (Reported) Metformin Hcl (Metformin Hcl), 1,000 MG PO BID, (Reported) VITALS REVIEW VITALS Vital Sign - Last 24 Hours 09/12/20 09/12/20 09/12/20 09/12/20 07:00 07:15 07:30 07:45 Pulse 72 73 75 71 Resp 31 30 35 35 B/P (MAP) 152/87 (108) Pulse Ox 90 90 90 90 09/12/20 09/12/20 09/12/20 09/12/20 07:46 07:59 08:00 08:00 Pulse 92 85 80 Resp 26 32 17 B/P (MAP) 155/87 (109) Pulse Ox 88 90 89 O2 Delivery Non-Rebreather Non-Rebreather O2 Flow Rate 15.00 15.00 FiO2 100 09/12/20 09/12/20 09/12/20 09/12/20 08:00 08:06 08:06 08:14 Temp 98.2 Pulse 91 86 Resp 29 B/P (MAP) 155/87 155/87 Pulse Ox 93 O2 Delivery CPAP FiO2 100 09/12/20 09/12/20 09/12/20 09/12/20 08:15 09:10 10:00 11:30 Pulse 74 Resp 24 30 28 B/P (MAP) 138/70 (92) Pulse Ox 90 O2 Delivery Bi-pap Non-Rebreather Non-Rebreather Non-Rebreather O2 Flow Rate 15.00 15.00 15.00 Intake and Output 09/12/20 06:00 Intake Total 2103 ml Output Total 1550 ml Balance 553 ml VTE VTE Risk Total Score: 2 VTE Risk Score VTE Risk: Score 0-1 = Low Risk (Aggressive mobilization; early ambulation; no VTE prophylaxis required) Score 2: Moderate Risk (Intermittent/Pneumatic Compression Device OR Lovenox/Heparin/Coumadin) Score 3-4: High Risk (Intermittent/Pneumatic Compression Device AND Lovenox/Heparin/Coumadin) Score > or =5: Highest Risk (Intermittent/Pneumatic Compression Device AND Lovenox/Heparin/Coumadin) Antico:Hep/LMWH/Coum/Xarelto: Yes VTE VTE Present on Admission: No Currently receiving anticoagul: No VTE Risk Total Score: 2 Antico:Hep/LMWH/Coum/Xarelto: Yes Assessment/Plan Assessment/Plan Assessment/Plan 64yo male with COVID/Hypoxic failure Remains on 100% NRB A/P COVID, Hypoxic failure 1. pt w/ periods of agitation/delirium. will start seroquel. Attempt to avoid benzo's 2. encourage self proning as tolerates 3. if requires bipap can consider precedex 4. remdesivir, steroids 5. can try HFNC for comfort 6. full dose AC Patient is critically ill. i spent 60 minutes assessing patient, reviewing EMR, and discussing with staff using 2way audiovisual technology. TAMICA JESSICA MD Sep 12, 2020 12:01
[2020-09-12] MEDS: REMDESIVIR (EUA) 100 MG in NS 100ML 100 ML IV SCH (19:00)
--- NOTE | 2020-09-12 20:31 | PRM.PN ---
Subjective Subjective Date: Sep 12, 2020 Time: 20:35 Subjective Eevaluated at bedside , and with an court interpreter he voiced that he would like to see his who is acutely ill he is currently on HFNC and NRB and he was in tears VTE VTE Risk Total Score: 2 VTE Risk Score VTE Risk: Score 0-1 = Low Risk (Aggressive mobilization; early ambulation; no VTE prophylaxis required) Score 2: Moderate Risk (Intermittent/Pneumatic Compression Device OR Lovenox/Heparin/Coumadin) Score 3-4: High Risk (Intermittent/Pneumatic Compression Device AND Lovenox/Heparin/Coumadin) Score > or =5: Highest Risk (Intermittent/Pneumatic Compression Device AND Lovenox/Heparin/Coumadin) Antico:Hep/LMWH/Coum/Xarelto: Yes Review of Systems Constitutional: No: Fever, Chills, Sweats, Weakness, Malaise, Other Respiratory: No: Cough, Dry, Shortness of breath, SOB with excertion, Wheezing, Hemoptysis, Pleuritic Pain, Sputum, Wheezing, Other Gastrointestinal: No: Nausea, Vomiting, Abdominal Pain, Diarrhea, Constipation, Melena, Hematochezia, Other Neurological: No: Weakness, Numbness, Incoordination, Change in speech, Confusion, Seizures, Other Allergies: Coded Allergies: No Known Allergies (Unverified , 09/03/20) Scheduled Lisinopril (Lisinopril), 1 TAB PO BID, (Reported) Metformin Hcl (Metformin Hcl), 1,000 MG PO BID, (Reported) Objective Vitals and I/O Vital Sign - Last 24 Hours 09/12/20 09/12/20 09/12/20 09/12/20 07:00 07:15 07:30 07:45 Pulse 72 73 75 71 Resp 31 30 35 35 B/P (MAP) 152/87 (108) Pulse Ox 90 90 90 90 09/12/20 09/12/20 09/12/20 09/12/20 07:46 07:59 08:00 08:00 Pulse 92 85 80 Resp 26 32 17 B/P (MAP) 155/87 (109) Pulse Ox 88 90 89 O2 Delivery Non-Rebreather Non-Rebreather O2 Flow Rate 15.00 15.00 FiO2 100 09/12/20 09/12/20 09/12/20 09/12/20 08:00 08:06 08:06 08:14 Temp 98.2 Pulse 91 86 Resp 29 B/P (MAP) 155/87 155/87 Pulse Ox 93 O2 Delivery CPAP FiO2 100 09/12/20 09/12/20 09/12/20 09/12/20 08:15 09:10 10:00 11:30 Pulse 74 Resp 24 30 28 B/P (MAP) 138/70 (92) Pulse Ox 90 O2 Delivery Bi-pap Non-Rebreather Non-Rebreather Non-Rebreather O2 Flow Rate 15.00 15.00 15.00 09/12/20 09/12/20 09/12/20 09/12/20 12:00 12:00 12:15 13:00 Temp 98.5 Pulse 81 87 85 Resp 26 18 21 B/P (MAP) 146/83 (104) 172/74 (106) Pulse Ox 92 88 88 O2 Delivery Comfort Elmer O2 Flow Rate 35.00 FiO2 95 09/12/20 09/12/20 09/12/20 09/12/20 13:15 14:00 15:00 15:00 Temp 98.2 Pulse 83 81 85 Resp 18 42 B/P (MAP) 111/61 (78) 137/78 (97) Pulse Ox 90 89 90 09/12/20 09/12/20 09/12/20 09/12/20 15:45 16:00 17:12 19:00 Pulse 73 78 83 Resp 33 16 24 B/P (MAP) 132/72 (92) Pulse Ox 90 92 84 O2 Delivery Comfort Elmer O2 Flow Rate 45.00 09/12/20 09/12/20 09/12/20 09/12/20 19:01 19:15 19:30 19:31 Pulse 82 83 84 81 Resp 89 41 36 B/P (MAP) 125/75 (92) Pulse Ox 86 86 93 93 09/12/20 09/12/20 09/12/20 19:45 20:00 20:00 Temp 98.6 Pulse 90 77 Resp 35 B/P (MAP) 134/75 (94) Pulse Ox 94 94 O2 Delivery Comfort Elmer O2 Flow Rate 50.00 Intake and Output 09/12/20 07:00 Intake Total 2103 ml Output Total 1550 ml Balance 553 ml General: Alert, Oriented X3 (oriented to person ), Cooperative, No acute distress HEENT: Atraumatic, PERRLA, EOMI, Mucous membr. moist/pink Neck: Supple, No JVD, No thyromegaly Lungs: Clear to auscultation Heart: Regular rate (below 100 ), Normal S1, Normal S2, No murmurs Abdomen: Normal bowel sounds, Soft, No tenderness Extremities: No edema, Normal pulses, No tenderness/swelling Skin: No significant lesion Neuro: Normal speech, Strength at 5/5 X4 ext, Normal tone, Sensation intact, Cranial nerves 3-12 NL Psych/Mental Status: Mental status NL All Results(Lab/Rad) Laboratory Tests Test 09/03/20 21:02 09/04/20 04:47 09/04/20 05:59 09/04/20 07:15 Bedside Glucose 164 120 123 White Blood Count 8.1 10^3/uL Red Blood Count 4.89 10^6/uL Hemoglobin 14.2 g/dL Hematocrit 40.7 % Mean Corpuscular Volume 83.2 fL Mean Corpuscular Hemoglobin 29.0 pg Mean Corpuscular Hemoglobin Concent 34.9 g/dL Red Cell Distribution Width 12.0 % Platelet Count 185 10^3/uL Mean Platelet Volume 9.6 fL Neutrophils (%) (Auto) 83.5 % Lymphocytes (%) (Auto) 9.7 % Monocytes (%) (Auto) 6.0 % Neutrophils # (Auto) 6.8 10^3/uL Lymphocytes # (Auto) 0.79 10^3/uL1 Monocytes # (Auto) 0.5 10^3/uL Absolute Immature Granulocyte (auto 0.05 10^3 u/L Absolute Eosinophils (auto) 0.0 10^3/uL Immature Granulocytes % 0.60 % Eosinophils % 0.0 % Basophils % 0.2 % Basophils # 0.0 10^3/uL Sodium Level 132 mmol/L Potassium Level 3.6 mmol/L Chloride Level 97.0 mmol/L Carbon Dioxide Level 26.0 mmol/L Anion Gap 12.6 Blood Urea Nitrogen 21 mg/dL Creatinine 1.18 mg/dL Estimated GFR () 75.2 Est GFR (CKD-EPI)(Non-Afr Algerian) 62.1 BUN/Creatinine Ratio 17.0 Glucose Level 118 mg/dL Hemoglobin A1c 8.0 % Calcium Level 8.3 mg/dL Total Bilirubin 0.7 mg/dL Aspartate Amino Transf (AST/SGOT) 55 U/L Alanine Aminotransferase (ALT/SGPT) 37 U/L Alkaline Phosphatase 40 U/L Total Protein 6.5 g/dL Albumin 2.3 g/dL Globulin 4.2 Albumin/Globulin Ratio 0.547 Triglycerides Level 65 mg/dL Cholesterol Level 76 mg/dL LDL Cholesterol, Calculated 26.0 VLDL Cholesterol, Calculated 13.0 HDL Cholesterol 37 mg/dL Cholesterol Ratio (LDL/HDL) 0.7 Cholesterol/HDL Ratio 2.039259 Test 09/04/20 11:37 09/04/20 12:22 09/04/20 16:36 Bedside Glucose 159 131 D-Dimer 1.85 mg/L Troponin I < 0.02 ng/mL Pro-B-Type Natriuretic Peptide 97 pg/mL Current Medications Medications (Trade) Dose Ordered Sig/Adrianna Route PRN Reason Start Time Stop Time Status Last Admin Dose Admin Acetaminophen (Tylenol) 325 mg Q4H PRN PO PAIN 1 - 3 09/03/20 19:00 10/03/20 18:59 Morphine Sulfate (Morphine Sulfate) 2 mg Q4H PRN IV PAIN 4 - 6 09/03/20 19:00 09/04/20 19:28 DC Insulin Human Lispro (Humalog) 0-140 0 Units 141-200... ACHS SQ 09/03/20 21:00 10/03/20 20:59 09/04/20 11:30 Dextrose 1,000 ml @ 100 mls/hr Q10H PRN IV HYPOGLYCEMIA 09/03/20 19:00 10/03/20 18:59 Dextrose (Dextrose 50%-Water Syringe) 25 ml STAT PRN IV HYPOGLYCEMIA 09/03/20 19:00 10/03/20 18:59 Glucagon (Glucagen) 1 mg STAT STAT IV 09/03/20 18:44 09/03/20 18:56 DC Heparin Sodium (Porcine) (Heparin) 5,000 unit Q8HR SQ 09/03/20 22:00 10/03/20 21:59 09/04/20 14:00 Lisinopril (Zestril) 20 mg BID PO 09/03/20 21:00 10/03/20 20:59 09/04/20 08:22 Azithromycin 500 mg/Sodium Chloride 250 ml @ 175 mls/hr Q24HRS IV 09/03/20 20:30 09/04/20 08:15 DC 09/03/20 21:11 Ceftriaxone Sodium 1000 mg/ Sodium Chloride 100 ml @ 100 mls/hr Q24HRS IV 09/03/20 19:30 09/04/20 08:15 DC 09/03/20 19:39 Sodium Chloride 1,000 ml @ 75 mls/hr [id number] IV 09/03/20 20:00 10/03/20 19:59 09/04/20 09:20 Ceftriaxone Sodium (Rocephin) 1,000 mg STK-MED ONCE .ROUTE 09/03/20 19:35 09/03/20 19:35 DC Sodium Chloride 100 ml @ ud STK-MED ONCE IV 09/03/20 19:35 09/03/20 19:36 DC Zinc Sulfate (Zinc Sulfate) 220 mg DAILY PO 09/04/20 09:00 10/04/20 08:59 09/04/20 08:22 Ascorbic Acid (Vitamin C) 500 mg BID PO 09/04/20 09:00 10/04/20 08:59 09/04/20 08:22 Morphine Sulfate (Morphine Sulfate) 2 mg Q4H PRN IV PAIN 4 - 6 09/04/20 19:28 10/03/20 18:59 Course Sepsis Screening Results: Posi: POSITIVE Sepsis Qualifier/Stage: SEPSIS RISK DATE SEEN BY PHYSICIAN: Sep 11, 2020 TIME SEEN BY PROVIDER: 13:20 Vitals & review Data Vital Sign - Last 24 Hours 09/11/20 09/11/20 09/11/20 09/11/20 07:00 07:00 07:30 08:00 Temp 98.0 Pulse 62 67 Resp 28 27 B/P (MAP) 160/83 (108) 150/75 (100) Pulse Ox 96 91 O2 Delivery Non-Rebreather O2 Flow Rate 15.00 09/11/20 09/11/20 09/11/20 09/11/20 08:25 08:40 09:00 09:00 Pulse 65 87 81 Resp 22 19 B/P (MAP) 149/72 149/86 Pulse Ox 93 94 O2 Delivery Non-Rebreather O2 Flow Rate 15.00 FiO2 100 09/11/20 09/11/20 09/11/20 09/11/20 09:00 10:00 11:00 12:00 Pulse 67 74 68 Resp 25 30 35 B/P (MAP) 149/72 (97) 128/69 (88) 134/65 (88) Pulse Ox 93 88 91 O2 Delivery Non-Rebreather O2 Flow Rate 15.00 Intake and Output 09/11/20 07:00 Intake Total 335 ml Output Total 670 ml Balance -335 ml Laboratory Tests Test 09/09/20 16:50 09/09/20 19:54 09/10/20 04:26 09/10/20 04:54 Bedside Glucose 192 219 93 White Blood Count 11.8 10^3/uL Red Blood Count 4.77 10^6/uL Hemoglobin 13.8 g/dL Hematocrit 39.8 % Mean Corpuscular Volume 83.4 fL Mean Corpuscular Hemoglobin 28.9 pg Mean Corpuscular Hemoglobin Concent 34.7 g/dL Red Cell Distribution Width 12.3 % Platelet Count 361 10^3/uL Mean Platelet Volume 9.2 fL Neutrophils (%) (Auto) 84.0 % Lymphocytes (%) (Auto) 9.0 % Monocytes (%) (Auto) 4.8 % Neutrophils # (Auto) 9.9 10^3/uL Lymphocytes # (Auto) 1.06 10^3/uL1 Monocytes # (Auto) 0.6 10^3/uL Absolute Immature Granulocyte (auto 0.23 10^3 u/L Absolute Eosinophils (auto) 0.0 10^3/uL Immature Granulocytes % 2.00 % Eosinophils % 0.1 % Basophils % 0.1 % Basophils # 0.0 10^3/uL D-Dimer 8.09 mg/L Sodium Level 140 mmol/L Potassium Level 3.7 mmol/L Chloride Level 106.0 mmol/L Carbon Dioxide Level 27.2 mmol/L Anion Gap 10.5 Blood Urea Nitrogen 19 mg/dL Creatinine 0.96 mg/dL Estimated GFR () 95.4 Est GFR (CKD-EPI)(Non-Afr Algerian) 78.9 BUN/Creatinine Ratio 19.0 Glucose Level 100 mg/dL Calcium Level 7.9 mg/dL Phosphorus Level 2.4 mg/dL Magnesium Level 1.8 mg/dL Ferritin 1073 ng/mL Total Bilirubin 0.7 mg/dL Aspartate Amino Transf (AST/SGOT) 27 U/L Alanine Aminotransferase (ALT/SGPT) 29 U/L Alkaline Phosphatase 58 U/L Lactate Dehydrogenase 295 U/L Total Creatine Kinase 41 U/L C-Reactive Protein 3.25 mg/dL Total Protein 5.7 g/dL Albumin 2.0 g/dL Globulin 3.7 Albumin/Globulin Ratio 0.540 Procalcitonin 0.10 ng/mL Test 09/10/20 07:10 09/10/20 11:33 09/10/20 16:46 09/10/20 19:51 Bedside Glucose 134 173 178 169 Test 09/11/20 01:56 09/11/20 02:03 09/11/20 05:13 09/11/20 05:14 Bedside Glucose 159 145 Blood Gas Sample Site LB Blood Gas pH 7.398 Blood Gas PCO2 31.4 mmHg Blood Gas PO2 54.5 mmHg Blood Gas HCO3 18.9 mmol/L Blood Gas Base Excess -4.8 mmol/L Abdi Test POSITIVE Arterial Blood Oxygen Saturation 87.1 % Deoxyhemoglobin 12.9 % Carboxyhemoglobin 0.3 % Methemoglobin 0.0 % Total Hemoglobin 13.4 % Total Oxygen Concentration 16.3 % Blood Gas Temperature 37 Oxygen Delivery Method (LAB) NON-REBREATHER MASK FiO2 100 % Total Carbon Dioxide 19.9 mmol/L White Blood Count 11.5 10^3/uL Red Blood Count 4.66 10^6/uL Hemoglobin 13.4 g/dL Hematocrit 39.1 % Mean Corpuscular Volume 83.9 fL Mean Corpuscular Hemoglobin 28.8 pg Mean Corpuscular Hemoglobin Concent 34.3 g/dL Red Cell Distribution Width 12.2 % Platelet Count 296 10^3/uL Mean Platelet Volume 9.2 fL Neutrophils (%) (Auto) 87.0 % Lymphocytes (%) (Auto) 5.9 % Monocytes (%) (Auto) 5.0 % Neutrophils # (Auto) 10.0 10^3/uL Lymphocytes # (Auto) 0.68 10^3/uL1 Monocytes # (Auto) 0.6 10^3/uL Absolute Immature Granulocyte (auto 0.23 10^3 u/L Absolute Eosinophils (auto) 0.0 10^3/uL Immature Granulocytes % 2.00 % Eosinophils % 0.0 % Basophils % 0.1 % Basophils # 0.0 10^3/uL Sodium Level 139 mmol/L Potassium Level 3.9 mmol/L Chloride Level 106.0 mmol/L Carbon Dioxide Level 23.2 mmol/L Anion Gap 13.7 Blood Urea Nitrogen 22 mg/dL Creatinine 0.88 mg/dL Estimated GFR () 105.5 Est GFR (CKD-EPI)(Non-Afr Algerian) 87.2 BUN/Creatinine Ratio 25.0 Glucose Level 151 mg/dL Calcium Level 8.3 mg/dL Phosphorus Level 3.1 mg/dL Magnesium Level 2.3 mg/dL Total Bilirubin 0.7 mg/dL Aspartate Amino Transf (AST/SGOT) 27 U/L Alanine Aminotransferase (ALT/SGPT) 23 U/L Alkaline Phosphatase 71 U/L Total Protein 5.7 g/dL Albumin 2.0 g/dL Globulin 3.7 Albumin/Globulin Ratio 0.540 Test 09/11/20 05:41 09/11/20 07:35 09/11/20 07:50 09/11/20 11:42 Blood Gas Sample Site RT RADIAL ARTERY RR Blood Gas pH 7.405 7.398 Blood Gas PCO2 35.2 mmHg 36.1 mmHg Blood Gas PO2 53.5 mmHg 52.5 mmHg Blood Gas HCO3 21.6 mmol/L 21.8 mmol/L Blood Gas Base Excess -2.5 mmol/L -2.5 mmol/L Abdi Test POSITIVE POSITIVE Arterial Blood Oxygen Saturation 87.9 % 86.0 % Deoxyhemoglobin 12.1 % 13.9 % Carboxyhemoglobin 0 % 0.6 % Methemoglobin 0.1 % 0.3 % Total Hemoglobin 14.0 % 13.9 % Total Oxygen Concentration 17.3 % 16.6 % Blood Gas Temperature 37 37 Oxygen Delivery Method (LAB) NON-REBREATHER MASK NON-REBREATHER MASK FiO2 100 % 100 % Total Carbon Dioxide 22.6 mmol/L 22.9 mmol/L Bedside Glucose 133 185 Current Medications Medications (Trade) Dose Ordered Sig/Adrianna PRN Reason Start Time Stop Time Status Last Admin Enoxaparin Sodium (Lovenox) 80 mg BID 09/09/20 19:00 10/04/20 20:29 09/11/20 09:00 Lorazepam (Ativan) 1 mg Q4HR PRN ANXIETY 09/11/20 00:30 10/11/20 00:29 09/11/20 09:00 Metoprolol Tartrate (Lopresser) 25 mg BID 09/09/20 21:00 10/09/20 20:59 09/11/20 09:00 Remdesivir 100 mg/ Sodium Chloride 120 ml @ 111.111 mls/hr Q24HRS 09/08/20 19:00 10/08/20 18:59 09/10/20 18:00 LEVEL 1 SEPSIS INFECTION CRITE: ABX Therapy, Cough/Shortness of Breath, Flu- Pneumonia LEVEL 2-SIRS (LIST ALL THAT AP: RR>20/min Cardiovascular Evidence: Not Assessed or None Hematologic Evidence: None/Not assessed Hepatic Evidence: None/Not assessed Metabolic Evidence: None/Not assessed Neurological Evidence: Altered Mental Status Respiratory Evidence: Acute Resp failure, Need for O2 to keep>90%, O2 SAT<90room air Renal Evidence: None/Not assessed O2 Sat by Pulse Oximetry: 94 Oxygen Flow Rate: 50.00 Assessment/Plan Assessment/Plan Assessment/Plan a 64 year old with acute respiratory failure with hypoxia on supplementary ventilation with encephalopathy Plan ACUTE RESPIRATORY FAILURE WITH HYPOXIA - Continue on oxygen supplementation - wean as needed COVID PNEUMONIA - close to completion of decadron =- 3 doses - remdesivir - completed - oxygen need still elevated - ddimer elevation noted - therapeutic lovenox now HYPERTENSION - stable on current regimen - lisinopril and metoprolol DIABETES MELLITUS - sliding scale - check for past control - anticipate increase due to decadron - encourage PO intake ACUTE METABOLIC ENCEPHALOPATHY - per Tele internsivist SALOME Thurman MD Sep 12, 2020 20:30
[2020-09-12] MEDS: SEROQUEL PO SCH (21:00)
[2020-09-13] VITALS (87 sets, daily range): BP systolic 74–186; BP diastolic 42–107
--- NOTE | 2020-09-13 | NUR ---
Patient desating to 70s, self removed comfort flow. Currently confused only oriented to name. Patient reoriented and provided education on need for oxygen device. Reapplied at this time. O2 increased to 89%
[2020-09-13] MEDS: VENTOLIN HFA IH SCH ×6 (00:19→20:00)
--- NOTE | 2020-09-13 01:00 | NUR ---
Patient desating to 70s, self removed comfort flow. Currently confused only oriented to name. Patient reoriented and provided education on need for oxygen device. Reapplied at this time. O2 increased to high 80s%
--- NOTE | 2020-09-13 02:40 | NUR ---
Patient desating to 70s, self removed comfort flow. Currently confused only oriented to name. Patient reoriented and provided education on need for oxygen device. Reapplied at this time. O2 increased. New order for Bilateral Soft Restraints applied at this time. Education provided , patient noncompliant. Repositioned, circulation checked.
[2020-09-13] MEDS ORDERED: SEROQUEL PO SCH (03:00)
--- NOTE | 2020-09-13 03:05 | NUR ---
Patient desating to 80s, self removed comfort flow. Currently confused only oriented to name. Patient reoriented and provided education on need for oxygen device. With restraints still able to raise trunk and reach to remove mask, ativan 1mg given at this time. Patient yelling attempting to kick staff at bedside. Refusing to take extra PO dose of seroquel ordered by . Restraints readjusted.
--- NOTE | 2020-09-13 03:30 | NUR ---
Daughter Nelson called via cellphone, no answer at this time.
--- NOTE | 2020-09-13 03:50 | NUR ---
0350 Patient restrained, continues to DeSat O2 low 80s. Called in house hospitalist x4, no answer going straight to voicemail. 0415 Got a hold of print designer Isra via telephone New order for Bipap avaps 400, epap 8, rate 14, o2 100% with RT able to titrate. New order for precedex drip. Patient changed to bipap continues restless attempting to remove mask. O2 sat up to 91-93%. Charge made aware of Precedex drip order, will need to be mixed, pending to retrieve from supervisor nurse.
[2020-09-13] MEDS: ATIVAN IV PRN (04:00)
--- NOTE | 2020-09-13 05:00 | NUR ---
Daughter Nelson called at this time, updated on patient status and current use of restraint and change of bipap oxygenation device. Voiced understanding.
--- NOTE | 2020-09-13 05:10 | NUR ---
Precedex premixed at this time, will titrate accordingly.
[2020-09-13 05:15] LABS: BASOPHIL % 0.1 % (0.0-0.2); LYMPHOCYTES # 0.55 10^3/uL1 (1.0-4.8); MEAN CORP HGB 28.9 pg (26-34); MONOCYTES # 0.6 10^3/uL (0.3-0.8); MONOCYTES % 4.7 % (5.0-12.0); NEUTROPHIL # 12.3 10^3/uL (1.8-7.7); NEUTROPHILS % 89.9 % (41.0-85.0); PLATELET COUNT 132 10^3/uL (150-400); RED CELL DISTRIBUTION WIDTH 12.4 % (11.5-14.5)
--- NOTE | 2020-09-13 05:15 | NUR ---
Precedex started at this time to Right 20g Forearm. 0.2mcg/kg/hr at 3.75ml/hr. 0520 titrated 0.3mcg/kg/hr at 5.62ml/hr. Patient repositioned. Blankets applied, resting comfortably at this time.
[2020-09-13] MEDS ORDERED: NS 100ML 100 ML IV ONE (05:16)
--- NOTE | 2020-09-13 05:42 | NUR ---
PT TOOK OFF COMFORT FLOW AND O2 SAT DROPPED. PT PLACED ON CPAP AT 0330 18/6, RATE 14, 100%. PT O2 SAT WENT TO 88%. PT REMOVED BIPAP MASK AGAIN AND O2 SAT DROPPED TO LOW 80%. TELEMED ORDER FOR AVAPS, PT STARTED ON AVAPS OF 400, EPAP 8, R14, 100% AT 0400. PT O2 SAT NOW 93% AND TOLERATING WELL.
--- NOTE | 2020-09-13 05:50 | NUR ---
Patient able to bend upper trunk to right restrained hand, removed bipap mask at this time. Precedex drip increased to 0.5mcg/k/h at 9.37ml/hr
[2020-09-13 06:26] LABS: CALCIUM 8.1 mg/dL (8.4-10.5); CARBON DIOXIDE 24.6 mmol/L (20.0-32)
--- NOTE | 2020-09-13 06:55 | NUR ---
Received report from MIGUEL Becerra. Patient placed on restraints over night. Precedex going at 0.5 mcg/kg/hr from previous shift.
[2020-09-13] MEDS: HUMALOG SQ SCH ×3 (07:30→17:28)
--- NOTE | 2020-09-13 07:45 | NUR ---
Notified Dr. Young patient blood pressure 173/94. Provider ordered Nifedipine 2.5 mg IV push, verified with pharmacy dose not available. Provider stated to give scheduled PO Lopressor now. Patient drowsy unable to keep alert to safely give medications. Dr. Young gave telephone order for 5 mg hydralazine IV push stat. Will follow up with provider if treatment unsuccessful.
[2020-09-13 08:07] LABS: ABG PCO2 47.1 mmHg (35.0-45.0); pO2 55.4 mmHg (80.0-100.0)
[2020-09-13 08:08] LABS: BE(B) 1.1 mmol/L (-2.0-2.0); HCO3act 25.9 mmol/L (22.0-26.0)
[2020-09-13] MEDS ORDERED: APRESOLINE IV STA ×2 (08:19→09:43)
[2020-09-13] MEDS: PRECEDEX IV SCH (08:38)
[2020-09-13] MEDS: DECADRON IV SCH (08:38)
[2020-09-13] MEDS: NS IV SCH (08:38)
--- NOTE | 2020-09-13 08:50 | DIREP ---
PROCEDURE:CHEST 1 VIEW COMPARISON:[facility], CR, XRAY CHEST SINGLE VW, 09/10/2020, 06:18 AM. INDICATIONS:Worsening bilateral infiltrates on CXR FINDINGS: LUNGS/PLEURA:No significant change in bilateral predominantly peripheral ground-glass infiltrates. No sizable pleural effusion. CARDIAC:Prominent cardiac silhouette and normal pulmonary vascularity. MEDIASTINUM:Normal BONES:Normal OTHER:No additional findings. CONCLUSION:Stable multifocal pneumonia consistent with Covid 19. Dictated by: Coreen Bowen MD on 09/13/2020 at 08:47 AM
[2020-09-13] MEDS: SEROQUEL PO SCH (09:00)
[2020-09-13] MEDS: LOVENOX SQ SCH ×2 (09:00→21:00)
[2020-09-13] MEDS: ZESTRIL PO SCH ×2 (09:00→19:38)
[2020-09-13] MEDS: VITAMIN C PO SCH ×2 (09:00→21:00)
[2020-09-13] MEDS: ZINC SULFATE PO SCH ×2 (09:00→21:00)
[2020-09-13] MEDS: LOPRESSER PO SCH ×2 (09:00→19:38)
--- NOTE | 2020-09-13 09:35 | NUR ---
Dr. Young assessing patient at bedside. Patient aggravated and pulling at restraints. BP 166/89 provider ordered repeat administration of 5mg hydralazine. Verified platelets decreased to 132 will make changes to lovenox order and hold until further notice. Unable to administer PO medications, patient did not tolerate comfort flow with nonrebreather, desat to 85 and drowsy.
--- NOTE | 2020-09-13 11:00 | NUR ---
Notified Dr. Young patient oxygen 85-86 percent while on bipap. No new orders received [address] Steele patient oxygen 83 percent, completed assessment with video consult with RT at bedside. Provider ordered to intubate patient. 1110 Updated daughter Shoemy of shirleyjeanens current status, verbalized understanding and okay with intubation.
[2020-09-13] MEDS ORDERED: NS 1000ML 1,000 ML ONE (11:31)
[2020-09-13] MEDS ORDERED: WATER ONE (11:31)
[2020-09-13] MEDS ORDERED: NS 1000ML 1,000 ML IV ONE (11:45)
[2020-09-13] MEDS ORDERED: DIPRIVAN 100 ML IV ONE (11:46)
--- NOTE | 2020-09-13 11:50 | NUR ---
Intubation Note: 1152 SHELBIE Mathis, along side Rober, RT, Norman, RN, and Anabela RN at bedside. Patient vitals 136/68 Oxygen 96 % on bipap, 58 heart rate. 1155 Bagging by RT Peep 10 1156 Propofol 50 ml administered IV PUSH 1157 Succ 200mg administered IV PUSH 1158 ETT Size 8.0 21 at the teeth, color change, bilateral breath sounds confirmed by assigned RN and DISPLAY MAKER., Propofol drip began. 1200 Connected to ventilator, stat chest xray ordered
[2020-09-13] MEDS ORDERED: QUELICIN IV ONE (11:58)
[2020-09-13] MEDS ORDERED: DIPRIVAN IV ONE (11:58)
--- NOTE | 2020-09-13 12:35 | DIREP ---
PROCEDURE:CHEST 1 VIEW COMPARISON:[facility], CR, XRAY CHEST SINGLE VW, 09/13/2020, 08:13 AM. INDICATIONS:POST INTUBATION, NG TUBE PLACEMENT FINDINGS: LUNGS/PLEURA:Tip of ETT in satisfactory position above the saurabh. No significant change in bilateral predominantly peripheral ground-glass infiltrates. No large pleural effusion. CARDIAC:Prominent cardiac silhouette and normal pulmonary vascularity. MEDIASTINUM:Normal BONES:Normal OTHER:Placement of NGT with the side hole at the GE junction and should be advanced. CONCLUSION: 1. Stable bilateral pneumonia consistent with Covid 19. 2. Lines and tubes as above. Dictated by: Coreen Bowen MD on 09/13/2020 at 12:31 PM
--- NOTE | 2020-09-13 12:47 | TELE.CONS ---
Consultation Reason for Consult: Reason for Consultation: Covid PNA History of Present Illness History of Patient Comments The pt was on AVAPS 10 PEEP and 100% fio2 however still only having saturation of 84%. The decision was made to intubate the patient. Review of Systems Constitutional: No: Fever, Chills, Sweats, Weakness, Malaise, Other Respiratory: No: Cough, Dry, Shortness of breath, SOB with excertion, Wheezing, Hemoptysis, Pleuritic Pain, Sputum, Wheezing, Other Gastrointestinal: No: Nausea, Vomiting, Abdominal Pain, Diarrhea, Constipation, Melena, Hematochezia, Other Neurological: No: Weakness, Numbness, Incoordination, Change in speech, Confusion, Seizures, Other Allergies: Coded Allergies: No Known Allergies (Unverified , 09/03/20) Scheduled Lisinopril (Lisinopril), 1 TAB PO BID, (Reported) Metformin Hcl (Metformin Hcl), 1,000 MG PO BID, (Reported) VITALS REVIEW VITALS Vital Sign - Last 24 Hours 09/13/20 09/13/20 09/13/20 09/13/20 07:13 07:15 07:25 07:30 Pulse 68 54 Resp 30 26 26 B/P (MAP) 160/86 (110) Pulse Ox 92 94 O2 Delivery C-Pap Bi-pap O2 Flow Rate 100.00 FiO2 100 100 09/13/20 09/13/20 09/13/20 09/13/20 07:45 08:30 08:30 08:35 Pulse 60 B/P (MAP) 173/94 (120) 186/72 186/72 (110) 168/81 (110) 09/13/20 09/13/20 09/13/20 09/13/20 08:45 09:00 09:00 09:05 Pulse 66 55 55 73 Resp 34 30 34 B/P (MAP) 159/83 (108) Pulse Ox 93 91 93 O2 Delivery S/T FiO2 100 09/13/20 09/13/20 09/13/20 09/13/20 09:05 09:35 09:43 09:45 Pulse 73 56 60 55 Resp 34 31 30 B/P (MAP) 166/89 (114) 166/89 155/82 (106) Pulse Ox 93 89 90 O2 Delivery Bi-pap FiO2 100 1/1409/13/20 09/13/20 09/13/20 10:00 10:15 10:30 12:00 Pulse 53 54 57 58 Resp 61 29 28 B/P (MAP) 161/85 (110) 166/89 (114) 155/82 (106) Pulse Ox 91 91 88 94 FiO2 100 l Intake and Output 09/13/20 06:00 Intake Total 1065.5 ml Output Total 800 ml Balance 265.5 ml LABS LAB RESULTS Laboratory Tests Test 09/03/20 18:04 09/03/20 18:37 09/03/20 21:02 09/04/20 04:47 Bedside Glucose 104 164 Nasal Adenovirus (PCR) NotDetected Nasal Coronavirus Type 229E (PCR) NotDetected Nasal Coronavirus Type HKU1 (PCR) NotDetected Nasal Coronavirus Type NL63 (PCR) NotDetected Nasal Coronavirus Type OC43 (PCR) NotDetected Nasal Enterovirus/Rhinovirus (PCR) NotDetected Nasal Influenza Type A (H1) (PCR) NotDetected Nasal Influenza Type A (H3) (PCR) NotDetected Nasal Swab Influenza Virus B (PCR) NotDetected Nasal Parainfluenza Type 1 (PCR) NotDetected Nasal Parainfluenza Type 2 (PCR) NotDetected Nasal Parainfluenza Type 3 (PCR) NotDetected Nasal Parainfluenza Type 4 (PCR) NotDetected Nasal Resp Syncytial Virus (PCR) NotDetected Nasal Bordetella pertussis DNA (PCR NotDetected Nasal Chlamydophila pneumoniae (PCR NotDetected Nasal Human Metapneumovirus (PCR) NotDetected Nasal Mycoplasma pneumoniae (PCR) NotDetected Nasal SARS-CoV-2 (PCR) NotDetected Influenza Type A (H1N1/09) (PCR) NotDetected White Blood Count 8.1 10^3/uL Red Blood Count 4.89 10^6/uL Hemoglobin 14.2 g/dL Hematocrit 40.7 % Mean Corpuscular Volume 83.2 fL Mean Corpuscular Hemoglobin 29.0 pg Mean Corpuscular Hemoglobin Concent 34.9 g/dL Red Cell Distribution Width 12.0 % Platelet Count 185 10^3/uL Mean Platelet Volume 9.6 fL Neutrophils (%) (Auto) 83.5 % Lymphocytes (%) (Auto) 9.7 % Monocytes (%) (Auto) 6.0 % Neutrophils # (Auto) 6.8 10^3/uL Lymphocytes # (Auto) 0.79 10^3/uL1 Monocytes # (Auto) 0.5 10^3/uL Absolute Immature Granulocyte (auto 0.05 10^3 u/L Absolute Eosinophils (auto) 0.0 10^3/uL Immature Granulocytes % 0.60 % Eosinophils % 0.0 % Basophils % 0.2 % Basophils # 0.0 10^3/uL Sodium Level 132 mmol/L Potassium Level 3.6 mmol/L Chloride Level 97.0 mmol/L Carbon Dioxide Level 26.0 mmol/L Anion Gap 12.6 Blood Urea Nitrogen 21 mg/dL Creatinine 1.18 mg/dL Estimated GFR () 75.2 Est GFR (CKD-EPI)(Non-Afr Chinese) 62.1 BUN/Creatinine Ratio 17.0 Glucose Level 118 mg/dL Hemoglobin A1c 8.0 % Calcium Level 8.3 mg/dL Total Bilirubin 0.7 mg/dL Aspartate Amino Transf (AST/SGOT) 55 U/L Alanine Aminotransferase (ALT/SGPT) 37 U/L Alkaline Phosphatase 40 U/L Total Protein 6.5 g/dL Albumin 2.3 g/dL Globulin 4.2 Albumin/Globulin Ratio 0.547 Triglycerides Level 65 mg/dL Cholesterol Level 76 mg/dL LDL Cholesterol, Calculated 26.0 VLDL Cholesterol, Calculated 13.0 HDL Cholesterol 37 mg/dL Cholesterol Ratio (LDL/HDL) 0.7 Cholesterol/HDL Ratio [id number] Test 09/04/20 05:59 09/04/20 07:15 09/04/20 11:37 09/04/20 12:22 Bedside Glucose 120 123 159 D-Dimer 1.85 mg/L Troponin I < 0.02 ng/mL Pro-B-Type Natriuretic Peptide 97 pg/mL Test 09/04/20 16:36 09/04/20 20:39 09/04/20 20:54 09/05/20 00:10 Bedside Glucose 131 158 Procalcitonin 0.74 ng/mL Yeast/Fungal Identification Test 09/05/20 04:05 09/05/20 05:40 09/05/20 08:09 09/05/20 09:30 White Blood Count 8.7 10^3/uL Red Blood Count 4.49 10^6/uL Hemoglobin 13.2 g/dL Hematocrit 38.0 % Mean Corpuscular Volume 84.6 fL Mean Corpuscular Hemoglobin 29.4 pg Mean Corpuscular Hemoglobin Concent 34.7 g/dL Red Cell Distribution Width 12.0 % Platelet Count 226 10^3/uL Mean Platelet Volume 9.6 fL Neutrophils (%) (Auto) 83.5 % Lymphocytes (%) (Auto) 10.2 % Monocytes (%) (Auto) 5.5 % Neutrophils # (Auto) 7.3 10^3/uL Lymphocytes # (Auto) 0.89 10^3/uL1 Monocytes # (Auto) 0.5 10^3/uL Absolute Immature Granulocyte (auto 0.05 10^3 u/L Absolute Eosinophils (auto) 0.0 10^3/uL Immature Granulocytes % 0.60 % Eosinophils % 0.1 % Basophils % 0.1 % Basophils # 0.0 10^3/uL Sodium Level 136 mmol/L Potassium Level 3.5 mmol/L Chloride Level 103.0 mmol/L Carbon Dioxide Level 24.3 mmol/L Anion Gap 12.2 Blood Urea Nitrogen 20 mg/dL Creatinine 1.01 mg/dL Estimated GFR () 90.0 Est GFR (CKD-EPI)(Non-Afr Chinese) 74.4 BUN/Creatinine Ratio 19.0 Glucose Level 104 mg/dL Calcium Level 8.1 mg/dL Phosphorus Level 2.5 mg/dL Magnesium Level 2.2 mg/dL Total Bilirubin 0.5 mg/dL Aspartate Amino Transf (AST/SGOT) 46 U/L Alanine Aminotransferase (ALT/SGPT) 29 U/L Alkaline Phosphatase 38 U/L Total Protein 6.1 g/dL Albumin 2.1 g/dL Globulin 4.0 Albumin/Globulin Ratio 0.525 Bedside Glucose 99 95 Nasal Adenovirus (PCR) NotDetected Nasal Coronavirus Type 229E (PCR) NotDetected Nasal Coronavirus Type HKU1 (PCR) NotDetected Nasal Coronavirus Type NL63 (PCR) NotDetected Nasal Coronavirus Type OC43 (PCR) NotDetected Nasal Enterovirus/Rhinovirus (PCR) NotDetected Nasal Influenza Type A (H1) (PCR) NotDetected Nasal Influenza Type A (H3) (PCR) NotDetected Nasal Swab Influenza Virus B (PCR) NotDetected Nasal Parainfluenza Type 1 (PCR) NotDetected Nasal Parainfluenza Type 2 (PCR) NotDetected Nasal Parainfluenza Type 3 (PCR) NotDetected Nasal Parainfluenza Type 4 (PCR) NotDetected Nasal Resp Syncytial Virus (PCR) NotDetected Nasal Bordetella pertussis DNA (PCR NotDetected Nasal Chlamydophila pneumoniae (PCR NotDetected Nasal Human Metapneumovirus (PCR) NotDetected Nasal Mycoplasma pneumoniae (PCR) NotDetected Nasal SARS-CoV-2 (PCR) DETECTED Influenza Type A (H1N1/) (PCR) NotDetected Test 09/05/20 10:24 09/05/20 12:44 09/05/20 17:15 09/05/20 19:49 Erythrocyte Sedimentation Rate 78 mm/hr C-Reactive Protein 13.99 mg/dL Anti-Nuclear FA Antibody Screen Negative Anti-Nuclear Ab Homogeneous Pattern Anti-Nuclear Ab Nucleolar Pattern Anti-Nuclear Ab Speckled Pattern Anti-Nuclear Ab Centromere Pattern Anti-Nuclear Antibody Comment Cytoplasmic ANCA (c-ANCA) Antibody <1:20 titer Atypical p-ANCA <1:20 titer Perinuclear ANCA (p-ANCA) Antibody <1:20 titer HIV-1 Antibody NON-REACTIVE HIV-2 Antibody NON-REACTIVE Bedside Glucose 88 154 141 Test 09/06/20 04:09 09/06/20 05:29 09/06/20 11:39 09/06/20 16:09 White Blood Count 7.7 10^3/uL Red Blood Count 4.20 10^6/uL Hemoglobin 12.5 g/dL Hematocrit 35.4 % Mean Corpuscular Volume 84.3 fL Mean Corpuscular Hemoglobin 29.8 pg Mean Corpuscular Hemoglobin Concent 35.3 g/dL Red Cell Distribution Width 11.9 % Platelet Count 208 10^3/uL Mean Platelet Volume 10.4 fL Neutrophils (%) (Auto) 82.7 % Lymphocytes (%) (Auto) 8.5 % Monocytes (%) (Auto) 7.8 % Neutrophils # (Auto) 6.3 10^3/uL Lymphocytes # (Auto) 0.65 10^3/uL1 Monocytes # (Auto) 0.6 10^3/uL Absolute Immature Granulocyte (auto 0.04 10^3 u/L Absolute Eosinophils (auto) 0.0 10^3/uL Immature Granulocytes % 0.50 % Eosinophils % 0.1 % Basophils % 0.4 % Basophils # 0.0 10^3/uL Sodium Level 137 mmol/L Potassium Level 3.5 mmol/L Chloride Level 104.0 mmol/L Carbon Dioxide Level 23.9 mmol/L Anion Gap 12.6 Blood Urea Nitrogen 17 mg/dL Creatinine 0.94 mg/dL Estimated GFR () 97.8 Est GFR (CKD-EPI)(Non-Afr Chinese) 80.8 BUN/Creatinine Ratio 18.0 Glucose Level 181 mg/dL Calcium Level 8.0 mg/dL Phosphorus Level 3.2 mg/dL Magnesium Level 2.2 mg/dL Total Bilirubin 0.5 mg/dL Aspartate Amino Transf (AST/SGOT) 45 U/L Alanine Aminotransferase (ALT/SGPT) 28 U/L Alkaline Phosphatase 38 U/L Total Protein 5.9 g/dL Albumin 1.8 g/dL Globulin 4.1 Albumin/Globulin Ratio 0.439 Bedside Glucose 166 133 192 Test 09/06/20 19:56 09/07/20 05:22 09/07/20 07:46 09/07/20 10:47 Bedside Glucose 190 181 222 238 Test 09/07/20 17:34 09/07/20 17:36 09/07/20 18:20 09/07/20 18:59 Bedside Glucose 220 236 Blood Gas Sample Site RR Blood Gas pH 7.403 Blood Gas PCO2 30.6 mmHg Blood Gas PO2 62.4 mmHg Blood Gas HCO3 18.7 mmol/L Blood Gas Base Excess -4.8 mmol/L Abdi Test POSITIVE Arterial Blood Oxygen Saturation 92.1 % Deoxyhemoglobin 7.8 % Carboxyhemoglobin 0.7 % Methemoglobin 0.2 % Total Hemoglobin 14.6 % Total Oxygen Concentration 18.7 % Blood Gas Temperature 37.0 Oxygen Delivery Method (LAB) NON-REBREATHER MASK FiO2 100 % Total Carbon Dioxide 19.6 mmol/L Hemoglobin 14.0 g/dL Hematocrit 40.0 % Platelet Count 386 10^3/uL Prothrombin Time 11.2 SEC Prothrombin Time INR (Non-Therap) 1.1 Fibrinogen > 450 mg/dL Test 09/07/20 20:18 09/08/20 05:14 09/08/20 05:20 09/08/20 06:57 Bedside Glucose 226 204 White Blood Count 11.7 10^3/uL Red Blood Count 4.60 10^6/uL Hemoglobin 13.4 g/dL Hematocrit 38.5 % Mean Corpuscular Volume 83.7 fL Mean Corpuscular Hemoglobin 29.1 pg Mean Corpuscular Hemoglobin Concent 34.8 g/dL Red Cell Distribution Width 12.0 % Platelet Count 360 10^3/uL Mean Platelet Volume 9.7 fL Neutrophils (%) (Auto) 89.4 % Lymphocytes (%) (Auto) 4.8 % Monocytes (%) (Auto) 4.9 % Neutrophils # (Auto) 10.5 10^3/uL Lymphocytes # (Auto) 0.56 10^3/uL1 Monocytes # (Auto) 0.6 10^3/uL Absolute Immature Granulocyte (auto 0.08 10^3 u/L Absolute Eosinophils (auto) 0.0 10^3/uL Immature Granulocytes % 0.70 % Eosinophils % 0.0 % Basophils % 0.2 % Basophils # 0.0 10^3/uL D-Dimer 4.40 mg/L Sodium Level 139 mmol/L Potassium Level 3.4 mmol/L Chloride Level 108.0 mmol/L Carbon Dioxide Level 21.4 mmol/L Anion Gap 13.0 Blood Urea Nitrogen 22 mg/dL Creatinine 0.87 mg/dL Estimated GFR () 106.9 Est GFR (CKD-EPI)(Non-Afr Chinese) 88.3 BUN/Creatinine Ratio 25.0 Glucose Level 214 mg/dL Calcium Level 8.1 mg/dL Phosphorus Level 2.2 mg/dL Magnesium Level 2.2 mg/dL Ferritin 1364 ng/mL Total Bilirubin 0.3 mg/dL Aspartate Amino Transf (AST/SGOT) 44 U/L Alanine Aminotransferase (ALT/SGPT) 23 U/L Alkaline Phosphatase 45 U/L Lactate Dehydrogenase 300 U/L Total Creatine Kinase 48 U/L C-Reactive Protein 3.22 mg/dL Total Protein 5.9 g/dL Albumin 2.0 g/dL Globulin 3.9 Albumin/Globulin Ratio 0.512 Procalcitonin 0.29 ng/mL Segmented Neutrophils 95 % Lymphocytes 4 % Monocytes 1 % Platelet Estimate ADEQUATE Platelet Morphology NORMAL Test 09/08/20 07:39 09/08/20 11:31 09/08/20 16:25 09/08/20 20:15 Bedside Glucose 223 208 183 217 Test 09/09/20 05:05 09/09/20 06:31 09/09/20 07:23 09/09/20 07:39 Bedside Glucose 169 231 White Blood Count 11.5 10^3/uL Red Blood Count 4.52 10^6/uL Hemoglobin 13.1 g/dL Hematocrit 37.4 % Mean Corpuscular Volume 82.7 fL Mean Corpuscular Hemoglobin 29.0 pg Mean Corpuscular Hemoglobin Concent 35.0 g/dL Red Cell Distribution Width 12.0 % Platelet Count 367 10^3/uL Mean Platelet Volume 9.2 fL Neutrophils (%) (Auto) 87.0 % Lymphocytes (%) (Auto) 5.3 % Monocytes (%) (Auto) 7.0 % Neutrophils # (Auto) 10.0 10^3/uL Lymphocytes # (Auto) 0.61 10^3/uL1 Monocytes # (Auto) 0.8 10^3/uL Absolute Immature Granulocyte (auto 0.07 10^3 u/L Absolute Eosinophils (auto) 0.0 10^3/uL Immature Granulocytes % 0.60 % Eosinophils % 0.0 % Basophils % 0.1 % Basophils # 0.0 10^3/uL Sodium Level 141 mmol/L Potassium Level 3.9 mmol/L Chloride Level 109.0 mmol/L Carbon Dioxide Level 22.4 mmol/L Anion Gap 13.5 Blood Urea Nitrogen 22 mg/dL Creatinine 0.81 mg/dL Estimated GFR () 116.1 Est GFR (CKD-EPI)(Non-Afr Chinese) 95.9 BUN/Creatinine Ratio 27.0 Glucose Level 187 mg/dL Calcium Level 7.9 mg/dL Phosphorus Level 2.7 mg/dL Magnesium Level 2.0 mg/dL Total Bilirubin 0.4 mg/dL Aspartate Amino Transf (AST/SGOT) 32 U/L Alanine Aminotransferase (ALT/SGPT) 29 U/L Alkaline Phosphatase 44 U/L Total Protein 5.5 g/dL Albumin 2.0 g/dL Globulin 3.5 Albumin/Globulin Ratio 0.571 Segmented Neutrophils 91 % Lymphocytes 5 % Monocytes 4 % Platelet Estimate ADEQUATE Platelet Morphology NORMAL Test 09/09/20 11:15 09/09/20 16:50 09/09/20 19:54 09/10/20 04:26 Bedside Glucose 236 192 219 White Blood Count 11.8 10^3/uL Red Blood Count 4.77 10^6/uL Hemoglobin 13.8 g/dL Hematocrit 39.8 % Mean Corpuscular Volume 83.4 fL Mean Corpuscular Hemoglobin 28.9 pg Mean Corpuscular Hemoglobin Concent 34.7 g/dL Red Cell Distribution Width 12.3 % Platelet Count 361 10^3/uL Mean Platelet Volume 9.2 fL Neutrophils (%) (Auto) 84.0 % Lymphocytes (%) (Auto) 9.0 % Monocytes (%) (Auto) 4.8 % Neutrophils # (Auto) 9.9 10^3/uL Lymphocytes # (Auto) 1.06 10^3/uL1 Monocytes # (Auto) 0.6 10^3/uL Absolute Immature Granulocyte (auto 0.23 10^3 u/L Absolute Eosinophils (auto) 0.0 10^3/uL Immature Granulocytes % 2.00 % Eosinophils % 0.1 % Basophils % 0.1 % Basophils # 0.0 10^3/uL D-Dimer 8.09 mg/L Sodium Level 140 mmol/L Potassium Level 3.7 mmol/L Chloride Level 106.0 mmol/L Carbon Dioxide Level 27.2 mmol/L Anion Gap 10.5 Blood Urea Nitrogen 19 mg/dL Creatinine 0.96 mg/dL Estimated GFR () 95.4 Est GFR (CKD-EPI)(Non-Afr Chinese) 78.9 BUN/Creatinine Ratio 19.0 Glucose Level 100 mg/dL Calcium Level 7.9 mg/dL Phosphorus Level 2.4 mg/dL Magnesium Level 1.8 mg/dL Ferritin 1073 ng/mL Total Bilirubin 0.7 mg/dL Aspartate Amino Transf (AST/SGOT) 27 U/L Alanine Aminotransferase (ALT/SGPT) 29 U/L Alkaline Phosphatase 58 U/L Lactate Dehydrogenase 295 U/L Total Creatine Kinase 41 U/L C-Reactive Protein 3.25 mg/dL Total Protein 5.7 g/dL Albumin 2.0 g/dL Globulin 3.7 Albumin/Globulin Ratio 0.540 Procalcitonin 0.10 ng/mL Test 09/10/20 04:54 09/10/20 07:10 09/10/20 11:33 09/10/20 16:46 Bedside Glucose 93 134 173 178 Test 09/10/20 19:51 09/11/20 01:56 09/11/20 02:03 09/11/20 05:13 Bedside Glucose 169 159 145 Blood Gas Sample Site LB Blood Gas pH 7.398 Blood Gas PCO2 31.4 mmHg Blood Gas PO2 54.5 mmHg Blood Gas HCO3 18.9 mmol/L Blood Gas Base Excess -4.8 mmol/L Abdi Test POSITIVE Arterial Blood Oxygen Saturation 87.1 % Deoxyhemoglobin 12.9 % Carboxyhemoglobin 0.3 % Methemoglobin 0.0 % Total Hemoglobin 13.4 % Total Oxygen Concentration 16.3 % Blood Gas Temperature 37 Oxygen Delivery Method (LAB) NON-REBREATHER MASK FiO2 100 % Total Carbon Dioxide 19.9 mmol/L Test 09/11/20 05:14 09/11/20 05:41 09/11/20 07:35 09/11/20 07:50 White Blood Count 11.5 10^3/uL Red Blood Count 4.66 10^6/uL Hemoglobin 13.4 g/dL Hematocrit 39.1 % Mean Corpuscular Volume 83.9 fL Mean Corpuscular Hemoglobin 28.8 pg Mean Corpuscular Hemoglobin Concent 34.3 g/dL Red Cell Distribution Width 12.2 % Platelet Count 296 10^3/uL Mean Platelet Volume 9.2 fL Neutrophils (%) (Auto) 87.0 % Lymphocytes (%) (Auto) 5.9 % Monocytes (%) (Auto) 5.0 % Neutrophils # (Auto) 10.0 10^3/uL Lymphocytes # (Auto) 0.68 10^3/uL1 Monocytes # (Auto) 0.6 10^3/uL Absolute Immature Granulocyte (auto 0.23 10^3 u/L Absolute Eosinophils (auto) 0.0 10^3/uL Immature Granulocytes % 2.00 % Eosinophils % 0.0 % Basophils % 0.1 % Basophils # 0.0 10^3/uL Sodium Level 139 mmol/L Potassium Level 3.9 mmol/L Chloride Level 106.0 mmol/L Carbon Dioxide Level 23.2 mmol/L Anion Gap 13.7 Blood Urea Nitrogen 22 mg/dL Creatinine 0.88 mg/dL Estimated GFR () 105.5 Est GFR (CKD-EPI)(Non-Afr Chinese) 87.2 BUN/Creatinine Ratio 25.0 Glucose Level 151 mg/dL Calcium Level 8.3 mg/dL Phosphorus Level 3.1 mg/dL Magnesium Level 2.3 mg/dL Total Bilirubin 0.7 mg/dL Aspartate Amino Transf (AST/SGOT) 27 U/L Alanine Aminotransferase (ALT/SGPT) 23 U/L Alkaline Phosphatase 71 U/L Total Protein 5.7 g/dL Albumin 2.0 g/dL Globulin 3.7 Albumin/Globulin Ratio 0.540 Blood Gas Sample Site RT RADIAL ARTERY RR Blood Gas pH 7.405 7.398 Blood Gas PCO2 35.2 mmHg 36.1 mmHg Blood Gas PO2 53.5 mmHg 52.5 mmHg Blood Gas HCO3 21.6 mmol/L 21.8 mmol/L Blood Gas Base Excess -2.5 mmol/L -2.5 mmol/L Abdi Test POSITIVE POSITIVE Arterial Blood Oxygen Saturation 87.9 % 86.0 % Deoxyhemoglobin 12.1 % 13.9 % Carboxyhemoglobin 0 % 0.6 % Methemoglobin 0.1 % 0.3 % Total Hemoglobin 14.0 % 13.9 % Total Oxygen Concentration 17.3 % 16.6 % Blood Gas Temperature 37 37 Oxygen Delivery Method (LAB) NON-REBREATHER MASK NON-REBREATHER MASK FiO2 100 % 100 % Total Carbon Dioxide 22.6 mmol/L 22.9 mmol/L Bedside Glucose 133 Test 09/11/20 11:42 09/11/20 16:15 09/11/20 20:50 09/12/20 04:11 Bedside Glucose 185 175 201 White Blood Count 16.3 10^3/uL Red Blood Count 4.45 10^6/uL Hemoglobin 13.2 g/dL Hematocrit 37.1 % Mean Corpuscular Volume 83.4 fL Mean Corpuscular Hemoglobin 29.7 pg Mean Corpuscular Hemoglobin Concent 35.6 g/dL Red Cell Distribution Width 12.3 % Platelet Count 316 10^3/uL Mean Platelet Volume 9.2 fL Neutrophils (%) (Auto) 89.5 % Lymphocytes (%) (Auto) 3.9 % Monocytes (%) (Auto) 5.0 % Neutrophils # (Auto) 14.6 10^3/uL Lymphocytes # (Auto) 0.64 10^3/uL1 Monocytes # (Auto) 0.8 10^3/uL Absolute Immature Granulocyte (auto 0.24 10^3 u/L Absolute Eosinophils (auto) 0.0 10^3/uL Immature Granulocytes % 1.50 % Eosinophils % 0.0 % Basophils % 0.1 % Basophils # 0.0 10^3/uL Sodium Level 139 mmol/L Potassium Level 4.1 mmol/L Chloride Level 105.0 mmol/L Carbon Dioxide Level 26.4 mmol/L Anion Gap 11.7 Blood Urea Nitrogen 24 mg/dL Creatinine 0.82 mg/dL Estimated GFR () 114.5 Est GFR (CKD-EPI)(Non-Afr Chinese) 94.6 BUN/Creatinine Ratio 29.0 Glucose Level 144 mg/dL Calcium Level 8.3 mg/dL Total Bilirubin 0.6 mg/dL Aspartate Amino Transf (AST/SGOT) 24 U/L Alanine Aminotransferase (ALT/SGPT) 19 U/L Alkaline Phosphatase 69 U/L Total Protein 5.6 g/dL Albumin 2.0 g/dL Globulin 3.6 Albumin/Globulin Ratio 0.555 Test 09/12/20 05:21 09/12/20 07:14 09/12/20 11:45 09/12/20 15:44 Bedside Glucose 132 173 262 Blood Gas Sample Site RR Blood Gas pH 7.429 Blood Gas PCO2 33.6 mmHg Blood Gas PO2 47.2 mmHg Blood Gas HCO3 21.8 mmol/L Blood Gas Base Excess -1.7 mmol/L Abdi Test POSITIVE Arterial Blood Oxygen Saturation 82.7 % Deoxyhemoglobin 17.1 % Carboxyhemoglobin 0.9 % Methemoglobin 0.3 % Total Hemoglobin 15.0 % Total Oxygen Concentration 17.2 % Blood Gas Temperature 37 Oxygen Delivery Method (LAB) NON-REBREATHER MASK FiO2 100 % Total Carbon Dioxide 22.8 mmol/L Test 09/12/20 21:13 09/13/20 04:13 09/13/20 07:45 Bedside Glucose 202 White Blood Count 13.7 10^3/uL Red Blood Count 4.63 10^6/uL Hemoglobin 13.4 g/dL Hematocrit 38.7 % Mean Corpuscular Volume 83.6 fL Mean Corpuscular Hemoglobin 28.9 pg Mean Corpuscular Hemoglobin Concent 34.6 g/dL Red Cell Distribution Width 12.4 % Platelet Count 132 10^3/uL Mean Platelet Volume 10.4 fL Neutrophils (%) (Auto) 89.9 % Lymphocytes (%) (Auto) 4.0 % Monocytes (%) (Auto) 4.7 % Neutrophils # (Auto) 12.3 10^3/uL Lymphocytes # (Auto) 0.55 10^3/uL1 Monocytes # (Auto) 0.6 10^3/uL Absolute Immature Granulocyte (auto 0.18 10^3 u/L Absolute Eosinophils (auto) 0.0 10^3/uL Immature Granulocytes % 1.30 % Eosinophils % 0.0 % Basophils % 0.1 % Basophils # 0.0 10^3/uL D-Dimer 6.10 mg/L Sodium Level 134 mmol/L Potassium Level 3.9 mmol/L Chloride Level 101.0 mmol/L Carbon Dioxide Level 24.6 mmol/L Anion Gap 12.3 Blood Urea Nitrogen 21 mg/dL Creatinine 0.83 mg/dL Estimated GFR () 112.9 Est GFR (CKD-EPI)(Non-Afr Chinese) 93.3 BUN/Creatinine Ratio 25.0 Glucose Level 163 mg/dL Calcium Level 8.1 mg/dL Total Bilirubin 0.6 mg/dL Aspartate Amino Transf (AST/SGOT) 25 U/L Alanine Aminotransferase (ALT/SGPT) 18 U/L Alkaline Phosphatase 65 U/L Ammonia 32 umol/L Pro-B-Type Natriuretic Peptide 1380 pg/mL Total Protein 5.6 g/dL Albumin 1.9 g/dL Globulin 3.7 Albumin/Globulin Ratio 0.513 Blood Gas Sample Site RR Blood Gas pH 7.410 Blood Gas PCO2 47.1 mmHg Blood Gas PO2 55.4 mmHg Blood Gas HCO3 25.9 mmol/L Blood Gas Base Excess 1.1 mmol/L Abdi Test POSITIVE Arterial Blood Oxygen Saturation 87.4 % Deoxyhemoglobin 12.5 % Carboxyhemoglobin 0.8 % Methemoglobin 0.2 % Total Hemoglobin 13.9 % Total Oxygen Concentration 16.9 % Oxygen Delivery Method (LAB) BIPAP Blood Gas Vent Mode AVAPS Blood Gas Vent Rate 14 FiO2 100 % Blood Gas Tidal Volume 400 ML Blood Gas PEEP 8 CMH2O Total Carbon Dioxide 27.2 mmol/L Current Medications Medications (Trade) Dose Ordered Sig/Adrianna Route PRN Reason Start Time Stop Time Status Last Admin Dose Admin Acetaminophen (Tylenol) 325 mg Q4H PRN PO PAIN 1 - 3 09/03/20 19:00 09/05/20 19:26 DC Morphine Sulfate (Morphine Sulfate) 2 mg Q4H PRN IV PAIN 4 - 6 09/03/20 19:00 09/04/20 19:28 DC Insulin Human Lispro (Humalog) 0-140 0 Units 141-200... ACHS SQ 09/03/20 21:00 10/03/20 20:59 09/12/20 21:00 Dextrose 1,000 ml @ 100 mls/hr Q10H PRN IV HYPOGLYCEMIA 09/03/20 19:00 10/03/20 18:59 Dextrose (Dextrose 50%-Water Syringe) 25 ml STAT PRN IV HYPOGLYCEMIA 09/03/20 19:00 10/03/20 18:59 Glucagon (Glucagen) 1 mg STAT STAT IV 09/03/20 18:44 09/03/20 18:56 DC Heparin Sodium (Porcine) (Heparin) 5,000 unit Q8HR SQ 09/03/20 22:00 09/04/20 20:10 DC 09/04/20 14:00 Lisinopril (Zestril) 20 mg BID PO 09/03/20 21:00 10/03/20 20:59 09/12/20 21:00 Azithromycin 500 mg/Sodium Chloride 250 ml @ 175 mls/hr Q24HRS IV 09/03/20 20:30 09/04/20 08:15 DC 09/03/20 21:11 Ceftriaxone Sodium 1000 mg/ Sodium Chloride 100 ml @ 100 mls/hr Q24HRS IV 09/03/20 19:30 09/04/20 08:15 DC 09/03/20 19:39 Sodium Chloride 1,000 ml @ 75 mls/hr [id number] IV 09/03/20 20:00 09/11/20 10:16 DC 09/11/20 01:20 Ceftriaxone Sodium (Rocephin) 1,000 mg STK-MED ONCE .ROUTE 09/03/20 19:35 09/03/20 19:35 DC Sodium Chloride 100 ml @ ud STK-MED ONCE IV 09/03/20 19:35 09/03/20 19:36 DC Zinc Sulfate (Zinc Sulfate) 220 mg DAILY PO 09/04/20 09:00 09/05/20 00:13 DC 09/04/20 08:22 Ascorbic Acid (Vitamin C) 500 mg BID PO 09/04/20 09:00 09/05/20 00:13 DC 09/04/20 20:22 Morphine Sulfate (Morphine Sulfate) 2 mg Q4H PRN IV PAIN 4 - 6 09/04/20 19:28 10/03/20 18:59 Enoxaparin Sodium (Lovenox) 75 mg BID SQ 09/04/20 20:30 09/05/20 11:39 DC 09/05/20 08:20 Azithromycin (Zithromax) 500 mg OT ONCE PO 09/05/20 00:00 09/05/20 02:22 DC 09/05/20 00:27 Ceftriaxone Sodium 2000 mg/ Sodium Chloride 100 ml @ 100 mls/hr Q24HRS IV 09/05/20 00:00 09/09/20 18:46 DC 09/08/20 23:59 Azithromycin (Zithromax) 250 mg DAILY PO 09/05/20 19:00 09/09/20 18:59 DC 09/09/20 08:31 Ceftriaxone Sodium (Rocephin) 1,000 mg STK-MED ONCE .ROUTE 09/05/20 00:25 09/05/20 00:26 DC Sodium Chloride 100 ml @ ud STK-MED ONCE IV 09/05/20 00:26 09/05/20 00:26 DC Enoxaparin Sodium (Lovenox) 40 mg DAILY SQ 09/06/20 09:00 09/09/20 18:47 DC 09/09/20 08:31 Ascorbic Acid (Vitamin C) 1,000 mg BID PO 09/05/20 21:00 10/05/20 20:59 09/12/20 21:00 Zinc Sulfate (Zinc Sulfate) 220 mg BID PO 09/05/20 21:00 10/05/20 20:59 09/12/20 21:00 Albuterol Sulfate (Ventolin Hfa) 2 inh RTQ4 IH 09/05/20 13:00 10/05/20 12:59 09/13/20 08:45 Acetaminophen (Tylenol) 1,000 mg Q6H PRN PO PAIN 1 - 3 09/05/20 12:00 10/05/20 11:59 09/06/20 09:35 Enoxaparin Sodium (Lovenox) 40 mg STK-MED ONCE SQ 09/06/20 07:12 09/06/20 07:12 DC Remdesivir 200 mg/ Sodium Chloride 140 ml @ 120.69 mls/ hr OT STAT IV 09/07/20 18:45 09/07/20 19:54 DC 09/07/20 19:10 Remdesivir 100 mg/ Sodium Chloride 120 ml @ 111.111 mls/hr Q24HRS IV 09/08/20 19:00 09/13/20 07:12 DC 09/12/20 19:00 Potassium Chloride (Klor-Con 10) 40 meq OT PO 09/08/20 13:00 09/11/20 15:50 DC 09/09/20 04:56 Metoprolol Tartrate (Lopresser) 10 mg STAT STAT IVP 09/09/20 11:00 09/09/20 11:04 DC 09/09/20 11:34 Metoprolol Tartrate (Lopresser) 25 mg BID PO 09/09/20 21:00 10/09/20 20:59 09/12/20 21:00 Enoxaparin Sodium (Lovenox) 80 mg BID SQ 09/09/20 19:00 09/11/20 15:51 DC 09/11/20 09:00 Sodium Chloride 250 ml @ ud STK-MED ONCE IV 09/10/20 12:50 09/10/20 12:51 DC Enoxaparin Sodium (Lovenox) 80 mg STK-MED ONCE SQ 09/10/20 21:17 09/10/20 21:17 DC Lorazepam (Ativan) 1 mg Q4HR PRN IV ANXIETY 09/11/20 00:30 10/11/20 00:29 09/13/20 04:00 Enoxaparin Sodium (Lovenox) 80 mg BID SQ 09/11/20 21:00 10/11/20 20:59 09/12/20 21:00 Methylprednisolone Acetate (Depo-Medrol) 40 mg Q8HR IM 09/11/20 22:00 09/11/20 18:19 DC Quetiapine Fumarate (Seroquel) 25 mg BID PO 09/12/20 21:00 10/12/20 20:59 09/12/20 21:00 Quetiapine Fumarate (Seroquel) 25 mg BID PO 09/13/20 03:00 09/13/20 04:46 DC Dexmedetomidine HCl 400 mcg/ Sodium Chloride 100 ml @ 0 mls/hr IV 09/13/20 05:00 10/13/20 04:59 09/13/20 08:38 Sodium Chloride 100 ml @ ud STK-MED ONCE IV 09/13/20 05:16 09/13/20 05:16 DC Hydralazine HCl (Apresoline) 5 mg STAT STAT IV 09/13/20 08:19 09/13/20 08:21 DC 09/13/20 08:30 Hydralazine HCl (Apresoline) 5 mg STAT STAT IV 09/13/20 09:43 09/13/20 10:03 DC 09/13/20 09:43 Sterile Water (Water) 1,000 ml STK-MED ONCE .ROUTE 09/13/20 11:31 09/13/20 11:31 DC Sodium Chloride 1,000 ml @ ud STK-MED ONCE .ROUTE 09/13/20 11:31 09/13/20 11:31 DC Propofol 100 ml @ ud STK-MED ONCE IV 09/13/20 11:46 09/13/20 11:47 DC Propofol (Diprivan) 1,000 mg STAT IV 09/13/20 13:00 10/13/20 12:59 VTE VTE Risk Total Score: 2 VTE Risk Score VTE Risk: Score 0-1 = Low Risk (Aggressive mobilization; early ambulation; no VTE prophylaxis required) Score 2: Moderate Risk (Intermittent/Pneumatic Compression Device OR Lovenox/Heparin/Coumadin) Score 3-4: High Risk (Intermittent/Pneumatic Compression Device AND Lovenox/Heparin/Coumadin) Score > or =5: Highest Risk (Intermittent/Pneumatic Compression Device AND Lovenox/Heparin/Coumadin) Antico:Hep/LMWH/Coum/Xarelto: Yes VTE VTE Present on Admission: No Currently receiving anticoagul: No VTE Risk Total Score: 2 Antico:Hep/LMWH/Coum/Xarelto: Yes Assessment/Plan Assessment/Plan Plan #1 Neuro: THe pt was intubated, can sedate using propofol and/or fentanyl #2 CV: The pt is normotensive at present. #3 Pulm: Pt has covid PNA now c/b ARDS and acute respiratory failure with hypoxia requiring intubation. T Pt received decadron, remdesivir, azithro, check CXR, . If O2 sat worsens can increase PEEP 10. Ok to start TF #4 GI: TF #5 Renal: Monitor for renal failure, replete lytes #6 ID: Covid + and getting remdesivir zithro #7 Endo: keep FS 150-180 #8 Heme: Tx plats >10k hgb >7, pt at risk for clotting and so will give a/c #9 PPx: lovenox and PPI I discussed pt with POSTPARTUM NURSE and completed the video assessment with assistance from the POSTPARTUM NURSE. I spent a total of greater than 60 minutes formulating critical care for this patient today. I saw this patient and completed a full visual exam via audio-visual HIPAA compliant technology. ALVARO HACKETT MD Sep 13, 2020 12:46
[2020-09-13] MEDS: DIPRIVAN IV SCH ×2 (13:11→17:44)
[2020-09-13 13:20] LABS: ABG PH 7.388 (7.350-7.450)
[2020-09-13 13:21] LABS: BE(B) -1.9 mmol/L (-2.0-2.0); HCO3act 22.7 mmol/L (22.0-26.0)
--- NOTE | 2020-09-13 13:21 | NUR ---
Called to ICU for intubation of patient. Patient VSS, SPO2 94% on BIPAP and precedex, responsive to painful stimulus. Breath sounds course throughout. Iv induction left PIV with propofol 150mg followed by succinylcholine 200mg, endo-intubation easily by DL grade 1 view[address] 8.0 size ETT with cuff inflated with 8cc air at 24cm at the teeth. Bilateral breath sounds equal and course, placed on ventilator by RT, VSS, SPO2 90s. Chest Xray to follow.
[2020-09-13 14:18] LABS: APPEARANCE,URINE CLEAR (CLEAR); BILIRUBIN,URINE NEGATIVE (NEGATIVE); UA COLOR YELLOW (YELLOW)
[2020-09-13 14:19] LABS: UROBILINOGEN,URINE NORMAL (NEGATIVE)
--- NOTE | 2020-09-13 15:15 | NUR ---
Notified Dr. Young patient heart rate bradycardia low 50's while on propofol for sedation. Stable blood pressure 146/81. Provider will put in order for fentanyl drip and wean sedation as tolerated
--- NOTE | 2020-09-13 15:33 | PRM.PN ---
Subjective Subjective Date: Sep 13, 2020 Time: 15:23 Subjective acute event overnight worsening oxygenation needing mechanical ventilation VTE VTE Risk Total Score: 2 VTE Risk Score VTE Risk: Score 0-1 = Low Risk (Aggressive mobilization; early ambulation; no VTE prophylaxis required) Score 2: Moderate Risk (Intermittent/Pneumatic Compression Device OR Lovenox/Heparin/Coumadin) Score 3-4: High Risk (Intermittent/Pneumatic Compression Device AND Lovenox/Heparin/Coumadin) Score > or =5: Highest Risk (Intermittent/Pneumatic Compression Device AND Lovenox/Heparin/Coumadin) Antico:Hep/LMWH/Coum/Xarelto: Yes Review of Systems Other Non verbal - intubated and sedated Allergies: Coded Allergies: No Known Allergies (Unverified , 09/03/20) Scheduled Lisinopril (Lisinopril), 1 TAB PO BID, (Reported) Metformin Hcl (Metformin Hcl), 1,000 MG PO BID, (Reported) Objective Vitals and I/O Vital Sign - Last 24 Hours 09/13/20 09/13/20 09/13/20 09/13/20 07:13 07:15 07:25 07:30 Pulse 68 54 Resp 30 26 26 B/P (MAP) 160/86 (110) Pulse Ox 92 94 O2 Delivery C-Pap Bi-pap O2 Flow Rate 100.00 FiO2 100 100 09/13/20 09/13/20 09/13/20 09/13/20 07:45 08:30 08:30 08:35 Pulse 60 B/P (MAP) 173/94 (120) 186/72 186/72 (110) 168/81 (110) 09/13/20 09/13/20 09/13/20 09/13/20 08:45 09:00 09:00 09:05 Pulse 66 55 55 73 Resp 34 30 34 B/P (MAP) 159/83 (108) Pulse Ox 93 91 93 O2 Delivery S/T FiO2 100 09/13/20 09/13/20 09/13/20 09/13/20 09:05 09:35 09:43 09:45 Pulse 73 56 60 55 Resp 34 31 30 B/P (MAP) 166/89 (114) 166/89 155/82 (106) Pulse Ox 93 89 90 O2 Delivery Bi-pap FiO2 100 09/13/20 09/13/20 09/13/20 1/14/21 10:00 10:15 10:30 12:00 Pulse 53 54 57 55 Resp 30 29 27 B/P (MAP) 161/85 (110) 166/89 (114) 155/82 (106) Pulse Ox 91 91 88 93 FiO2 100 09/13/20 09/13/20 09/13/20 09/13/20 12:00 12:00 12:35 12:36 Pulse 58 74 63 Resp 28 30 13 B/P (MAP) 108/59 (75) 88/48 (61) Pulse Ox 94 83 80 O2 Delivery Mechanical Ventilator O2 Flow Rate 100.00 FiO2 100 09/13/20 09/13/20 09/13/20 09/13/20 12:38 12:39 12:40 12:41 Pulse 59 60 58 59 Resp 41 27 24 25 B/P (MAP) 80/49 (59) 90/58 (69) 99/46 (63) 103/58 (73) Pulse Ox 84 86 92 89 09/13/20 09/13/20 09/13/20 09/13/20 12:42 12:43 12:44 12:45 Pulse 59 59 58 58 Resp 25 25 25 25 B/P (MAP) 107/59 (75) 108/61 (77) 110/68 (82) Pulse Ox 89 88 89 90 09/13/20 09/13/20 09/13/20 09/13/20 13:00 13:15 13:30 13:30 Pulse 56 58 53 55 Resp 25 25 26 B/P (MAP) 133/79 (97) 145/79 (101) 146/81 (102) Pulse Ox 95 93 89 94 09/13/20 09/13/20 09/13/20 09/13/20 13:45 13:54 14:00 14:15 Pulse 53 66 52 52 Resp 25 34 14 25 B/P (MAP) 142/78 (99) 135/76 (95) 125/71 (89) Pulse Ox 92 93 91 91 09/13/20 09/13/20 09/13/20 14:30 14:45 15:00 Pulse 51 51 53 Resp 26 25 26 B/P (MAP) 130/74 (92) 135/73 (93) 145/79 (101) Pulse Ox 91 92 92 Intake and Output 09/13/20 07:00 Intake Total 1065.5 ml Output Total 1400 ml Balance -334.5 ml General: Other (sedated and intubated ) HEENT: PERRLA, Mucous membr. moist/pink Neck: No JVD Lungs: Clear to auscultation, Normal air movement Heart: Regular rate (below 100 ), Normal S1, Normal S2, No murmurs Abdomen: Normal bowel sounds, Soft, No tenderness Extremities: No edema, Normal pulses, No tenderness/swelling Skin: No significant lesion All Results(Lab/Rad) Laboratory Tests Test 09/03/20 21:02 09/04/20 04:47 09/04/20 05:59 09/04/20 07:15 Bedside Glucose 164 120 123 White Blood Count 8.1 10^3/uL Red Blood Count 4.89 10^6/uL Hemoglobin 14.2 g/dL Hematocrit 40.7 % Mean Corpuscular Volume 83.2 fL Mean Corpuscular Hemoglobin 29.0 pg Mean Corpuscular Hemoglobin Concent 34.9 g/dL Red Cell Distribution Width 12.0 % Platelet Count 185 10^3/uL Mean Platelet Volume 9.6 fL Neutrophils (%) (Auto) 83.5 % Lymphocytes (%) (Auto) 9.7 % Monocytes (%) (Auto) 6.0 % Neutrophils # (Auto) 6.8 10^3/uL Lymphocytes # (Auto) 0.79 10^3/uL1 Monocytes # (Auto) 0.5 10^3/uL Absolute Immature Granulocyte (auto 0.05 10^3 u/L Absolute Eosinophils (auto) 0.0 10^3/uL Immature Granulocytes % 0.60 % Eosinophils % 0.0 % Basophils % 0.2 % Basophils # 0.0 10^3/uL Sodium Level 132 mmol/L Potassium Level 3.6 mmol/L Chloride Level 97.0 mmol/L Carbon Dioxide Level 26.0 mmol/L Anion Gap 12.6 Blood Urea Nitrogen 21 mg/dL Creatinine 1.18 mg/dL Estimated GFR () 75.2 Est GFR (CKD-EPI)(Non-Afr [place]) 62.1 BUN/Creatinine Ratio 17.0 Glucose Level 118 mg/dL Hemoglobin A1c 8.0 % Calcium Level 8.3 mg/dL Total Bilirubin 0.7 mg/dL Aspartate Amino Transf (AST/SGOT) 55 U/L Alanine Aminotransferase (ALT/SGPT) 37 U/L Alkaline Phosphatase 40 U/L Total Protein 6.5 g/dL Albumin 2.3 g/dL Globulin 4.2 Albumin/Globulin Ratio 0.547 Triglycerides Level 65 mg/dL Cholesterol Level 76 mg/dL LDL Cholesterol, Calculated 26.0 VLDL Cholesterol, Calculated 13.0 HDL Cholesterol 37 mg/dL Cholesterol Ratio (LDL/HDL) 0.7 Cholesterol/HDL Ratio [id number] Test 09/04/20 11:37 09/04/20 12:22 09/04/20 16:36 Bedside Glucose 159 131 D-Dimer 1.85 mg/L Troponin I < 0.02 ng/mL Pro-B-Type Natriuretic Peptide 97 pg/mL Current Medications Medications (Trade) Dose Ordered Sig/Adrianna Route PRN Reason Start Time Stop Time Status Last Admin Dose Admin Acetaminophen (Tylenol) 325 mg Q4H PRN PO PAIN 1 - 3 09/03/20 19:00 10/03/20 18:59 Morphine Sulfate (Morphine Sulfate) 2 mg Q4H PRN IV PAIN 4 - 6 09/03/20 19:00 09/04/20 19:28 DC Insulin Human Lispro (Humalog) 0-140 0 Units 141-200... ACHS SQ 09/03/20 21:00 10/03/20 20:59 09/04/20 11:30 Dextrose 1,000 ml @ 100 mls/hr Q10H PRN IV HYPOGLYCEMIA 09/03/20 19:00 10/03/20 18:59 Dextrose (Dextrose 50%-Water Syringe) 25 ml STAT PRN IV HYPOGLYCEMIA 09/03/20 19:00 10/03/20 18:59 Glucagon (Glucagen) 1 mg STAT STAT IV 09/03/20 18:44 09/03/20 18:56 DC Heparin Sodium (Porcine) (Heparin) 5,000 unit Q8HR SQ 09/03/20 22:00 10/03/20 21:59 09/04/20 14:00 Lisinopril (Zestril) 20 mg BID PO 09/03/20 21:00 10/03/20 20:59 09/04/20 08:22 Azithromycin 500 mg/Sodium Chloride 250 ml @ 175 mls/hr Q24HRS IV 09/03/20 20:30 09/04/20 08:15 DC 09/03/20 21:11 Ceftriaxone Sodium 1000 mg/ Sodium Chloride 100 ml @ 100 mls/hr Q24HRS IV 09/03/20 19:30 09/04/20 08:15 DC 09/03/20 19:39 Sodium Chloride 1,000 ml @ 75 mls/hr [id number] IV 09/03/20 20:00 10/03/20 19:59 09/04/20 09:20 Ceftriaxone Sodium (Rocephin) 1,000 mg STK-MED ONCE .ROUTE 09/03/20 19:35 09/03/20 19:35 DC Sodium Chloride 100 ml @ ud STK-MED ONCE IV 09/03/20 19:35 09/03/20 19:36 DC Zinc Sulfate (Zinc Sulfate) 220 mg DAILY PO 09/04/20 09:00 10/04/20 08:59 09/04/20 08:22 Ascorbic Acid (Vitamin C) 500 mg BID PO 09/04/20 09:00 10/04/20 08:59 09/04/20 08:22 Morphine Sulfate (Morphine Sulfate) 2 mg Q4H PRN IV PAIN 4 - 6 09/04/20 19:28 10/03/20 18:59 Course Sepsis Screening Results: Posi: POSITIVE Sepsis Qualifier/Stage: SEPSIS RISK DATE SEEN BY PHYSICIAN: Sep 11, 2020 TIME SEEN BY PROVIDER: 13:20 Vitals & review Data Vital Sign - Last 24 Hours 09/11/20 09/11/20 09/11/20 09/11/20 07:00 07:00 07:30 08:00 Temp 98.0 Pulse 62 67 Resp 28 27 B/P (MAP) 160/83 (108) 150/75 (100) Pulse Ox 96 91 O2 Delivery Non-Rebreather O2 Flow Rate 15.00 09/11/20 09/11/20 09/11/20 09/11/20 08:25 08:40 09:00 09:00 Pulse 65 87 81 Resp 22 19 B/P (MAP) 149/72 149/86 Pulse Ox 93 94 O2 Delivery Non-Rebreather O2 Flow Rate 15.00 FiO2 100 09/11/20 09/11/20 09/11/20 09/11/20 09:00 10:00 11:00 12:00 Pulse 67 74 68 Resp 25 30 35 B/P (MAP) 149/72 (97) 128/69 (88) 134/65 (88) Pulse Ox 93 88 91 O2 Delivery Non-Rebreather O2 Flow Rate 15.00 Intake and Output 09/11/20 07:00 Intake Total 335 ml Output Total 670 ml Balance -335 ml Laboratory Tests Test 09/09/20 16:50 09/09/20 19:54 09/10/20 04:26 09/10/20 04:54 Bedside Glucose 192 219 93 White Blood Count 11.8 10^3/uL Red Blood Count 4.77 10^6/uL Hemoglobin 13.8 g/dL Hematocrit 39.8 % Mean Corpuscular Volume 83.4 fL Mean Corpuscular Hemoglobin 28.9 pg Mean Corpuscular Hemoglobin Concent 34.7 g/dL Red Cell Distribution Width 12.3 % Platelet Count 361 10^3/uL Mean Platelet Volume 9.2 fL Neutrophils (%) (Auto) 84.0 % Lymphocytes (%) (Auto) 9.0 % Monocytes (%) (Auto) 4.8 % Neutrophils # (Auto) 9.9 10^3/uL Lymphocytes # (Auto) 1.06 10^3/uL1 Monocytes # (Auto) 0.6 10^3/uL Absolute Immature Granulocyte (auto 0.23 10^3 u/L Absolute Eosinophils (auto) 0.0 10^3/uL Immature Granulocytes % 2.00 % Eosinophils % 0.1 % Basophils % 0.1 % Basophils # 0.0 10^3/uL D-Dimer 8.09 mg/L Sodium Level 140 mmol/L Potassium Level 3.7 mmol/L Chloride Level 106.0 mmol/L Carbon Dioxide Level 27.2 mmol/L Anion Gap 10.5 Blood Urea Nitrogen 19 mg/dL Creatinine 0.96 mg/dL Estimated GFR () 95.4 Est GFR (CKD-EPI)(Non-Afr [place]) 78.9 BUN/Creatinine Ratio 19.0 Glucose Level 100 mg/dL Calcium Level 7.9 mg/dL Phosphorus Level 2.4 mg/dL Magnesium Level 1.8 mg/dL Ferritin 1073 ng/mL Total Bilirubin 0.7 mg/dL Aspartate Amino Transf (AST/SGOT) 27 U/L Alanine Aminotransferase (ALT/SGPT) 29 U/L Alkaline Phosphatase 58 U/L Lactate Dehydrogenase 295 U/L Total Creatine Kinase 41 U/L C-Reactive Protein 3.25 mg/dL Total Protein 5.7 g/dL Albumin 2.0 g/dL Globulin 3.7 Albumin/Globulin Ratio 0.540 Procalcitonin 0.10 ng/mL Test 09/10/20 07:10 09/10/20 11:33 09/10/20 16:46 09/10/20 19:51 Bedside Glucose 134 173 178 169 Test 09/11/20 01:56 09/11/20 02:03 09/11/20 05:13 09/11/20 05:14 Bedside Glucose 159 145 Blood Gas Sample Site LB Blood Gas pH 7.398 Blood Gas PCO2 31.4 mmHg Blood Gas PO2 54.5 mmHg Blood Gas HCO3 18.9 mmol/L Blood Gas Base Excess -4.8 mmol/L Abdi Test POSITIVE Arterial Blood Oxygen Saturation 87.1 % Deoxyhemoglobin 12.9 % Carboxyhemoglobin 0.3 % Methemoglobin 0.0 % Total Hemoglobin 13.4 % Total Oxygen Concentration 16.3 % Blood Gas Temperature 37 Oxygen Delivery Method (LAB) NON-REBREATHER MASK FiO2 100 % Total Carbon Dioxide 19.9 mmol/L White Blood Count 11.5 10^3/uL Red Blood Count 4.66 10^6/uL Hemoglobin 13.4 g/dL Hematocrit 39.1 % Mean Corpuscular Volume 83.9 fL Mean Corpuscular Hemoglobin 28.8 pg Mean Corpuscular Hemoglobin Concent 34.3 g/dL Red Cell Distribution Width 12.2 % Platelet Count 296 10^3/uL Mean Platelet Volume 9.2 fL Neutrophils (%) (Auto) 87.0 % Lymphocytes (%) (Auto) 5.9 % Monocytes (%) (Auto) 5.0 % Neutrophils # (Auto) 10.0 10^3/uL Lymphocytes # (Auto) 0.68 10^3/uL1 Monocytes # (Auto) 0.6 10^3/uL Absolute Immature Granulocyte (auto 0.23 10^3 u/L Absolute Eosinophils (auto) 0.0 10^3/uL Immature Granulocytes % 2.00 % Eosinophils % 0.0 % Basophils % 0.1 % Basophils # 0.0 10^3/uL Sodium Level 139 mmol/L Potassium Level 3.9 mmol/L Chloride Level 106.0 mmol/L Carbon Dioxide Level 23.2 mmol/L Anion Gap 13.7 Blood Urea Nitrogen 22 mg/dL Creatinine 0.88 mg/dL Estimated GFR () 105.5 Est GFR (CKD-EPI)(Non-Afr [place]) 87.2 BUN/Creatinine Ratio 25.0 Glucose Level 151 mg/dL Calcium Level 8.3 mg/dL Phosphorus Level 3.1 mg/dL Magnesium Level 2.3 mg/dL Total Bilirubin 0.7 mg/dL Aspartate Amino Transf (AST/SGOT) 27 U/L Alanine Aminotransferase (ALT/SGPT) 23 U/L Alkaline Phosphatase 71 U/L Total Protein 5.7 g/dL Albumin 2.0 g/dL Globulin 3.7 Albumin/Globulin Ratio 0.540 Test 09/11/20 05:41 09/11/20 07:35 09/11/20 07:50 09/11/20 11:42 Blood Gas Sample Site RT RADIAL ARTERY RR Blood Gas pH 7.405 7.398 Blood Gas PCO2 35.2 mmHg 36.1 mmHg Blood Gas PO2 53.5 mmHg 52.5 mmHg Blood Gas HCO3 21.6 mmol/L 21.8 mmol/L Blood Gas Base Excess -2.5 mmol/L -2.5 mmol/L Abdi Test POSITIVE POSITIVE Arterial Blood Oxygen Saturation 87.9 % 86.0 % Deoxyhemoglobin 12.1 % 13.9 % Carboxyhemoglobin 0 % 0.6 % Methemoglobin 0.1 % 0.3 % Total Hemoglobin 14.0 % 13.9 % Total Oxygen Concentration 17.3 % 16.6 % Blood Gas Temperature 37 37 Oxygen Delivery Method (LAB) NON-REBREATHER MASK NON-REBREATHER MASK FiO2 100 % 100 % Total Carbon Dioxide 22.6 mmol/L 22.9 mmol/L Bedside Glucose 133 185 Current Medications Medications (Trade) Dose Ordered Sig/Adrianna PRN Reason Start Time Stop Time Status Last Admin Enoxaparin Sodium (Lovenox) 80 mg BID 09/09/20 19:00 10/04/20 20:29 09/11/20 09:00 Lorazepam (Ativan) 1 mg Q4HR PRN ANXIETY 09/11/20 00:30 10/11/20 00:29 09/11/20 09:00 Metoprolol Tartrate (Lopresser) 25 mg BID 09/09/20 21:00 10/09/20 20:59 09/11/20 09:00 Remdesivir 100 mg/ Sodium Chloride 120 ml @ 111.111 mls/hr Q24HRS 09/08/20 19:00 10/08/20 18:59 09/10/20 18:00 LEVEL 1 SEPSIS INFECTION CRITE: ABX Therapy, Cough/Shortness of Breath, Flu- Pneumonia LEVEL 2-SIRS (LIST ALL THAT AP: RR>20/min Cardiovascular Evidence: Not Assessed or None Hematologic Evidence: None/Not assessed Hepatic Evidence: None/Not assessed Metabolic Evidence: None/Not assessed Neurological Evidence: Altered Mental Status Respiratory Evidence: Acute Resp failure, Need for O2 to keep>90%, O2 SAT<90room air Renal Evidence: None/Not assessed O2 Sat by Pulse Oximetry: 92 Oxygen Flow Rate: 100.00 Assessment/Plan Assessment/Plan Assessment/Plan A 64 year old male with COVID - 19 pneumonia with increasing oxygen need requiring mechanical ventilation Plan ACUTE RESPIRATORY FAILURE WITH HYPOXIA - NIPPV COVID PNEUMONIA - close to completion of decadron =- 3 doses - he may benefit from [id number] course of methylprednisolone - work up for superimposed bacterial infection - remdesivir - completed - ddimer elevation noted - therapeutic lovenox now HYPERTENSION - stable on current regimen - will hold metoprolol DIABETES MELLITUS - entereal feeding - continue sliding scale SALOME WATERS MD Sep 13, 2020 15:33
[2020-09-13] MEDS ORDERED: SUBLIMAZE 2,000 MCG in NS 250ML 160 ML IV SCH (16:00)
--- NOTE | 2020-09-13 18:29 | DIREP ---
PROCEDURE:CHEST 1 VIEW COMPARISON:[facility], CR, XRAY CHEST SINGLE VW, 09/13/2020, 12:03 PM. INDICATIONS:advanced NGT as recommended FINDINGS: LUNGS/PLEURA:Tip of ETT in satisfactory position above the saurabh. No significant change in bilateral predominantly peripheral ground-glass infiltrates. No large pleural effusion. CARDIAC:Prominent cardiac silhouette and normal pulmonary vascularity. MEDIASTINUM:Normal BONES:Normal OTHER:NGT side hole remains near the GE junction and should be advanced approximately 5 cm. CONCLUSION: 1. NG tube side hole remains in close proximity to the gastroesophageal junction. Recommend advancing approximately 5 cm. 2. Little interval cardiopulmonary change. Dictated by: Rowdy Gold M.D. on 09/13/2020 at 06:26 PM
--- NOTE | 2020-09-13 18:45 | NUR ---
Notified Dr. Young patient blood pressure 88/58 MAP 66, usage of warming blanket for temperature 94.8. Currently weaning down propofol and Heart rate 55. Verified NG tube placement. Provider stated after advancement okay to use. NG tube has been advance the recommended 5cm.
--- NOTE | 2020-09-13 19:00 | NUR ---
Received report from Gonzalo Terry. Patient intubated and sedated. Propofol at 16mcg and Fentanyl at 1.5mcg. Bp with map of 61. Temp 95 with Bearhugger. o2 at 93%.
[2020-09-13] MEDS ORDERED: LASIX IV STA (19:07)
--- NOTE | 2020-09-13 19:40 | NUR ---
Patients Bp continues to Dr.De Smith called x4 no answer, called two separate phone numbers provided by charge, voicemail not set up unable to leave message.
--- NOTE | 2020-09-13 20:00 | NUR ---
Dr. Nielsen called back , notified MAP of 55, ordered Bolus of 500 and initiate levophed at this time. Levophed mixed at started at 2mcg/min.
[2020-09-13] MEDS ORDERED: NS 250ML 250 ML IV ONE (20:34)
[2020-09-13] MEDS ORDERED: NS 500ML 500 ML IV ONE ×2 (20:34→21:00)
[2020-09-13] MEDS ORDERED: LEVOPHED ONE (20:34)
[2020-09-13] MEDS: LEVOPHED 8 MG in NS 250ML 250 ML IV PRN (20:47)
[2020-09-13] MEDS ORDERED: LASIX ONE (21:19)
--- NOTE | 2020-09-13 21:30 | NUR ---
Placement for NG tube checked via auscultation. Present 30ml of air. When attempting to give water flush, obtained resistance. NG tube trouble shoot, found two kinks unable to be un kinked. New 14F NG tube inserted without difficulty to Right Nare, new order for X-Ray for placement.
[2020-09-13] MEDS: SOLU-MEDROL IV SCH (22:00)
[2020-09-14] VITALS (80 sets, daily range): BP systolic 74–181; BP diastolic 41–78
[2020-09-14] MEDS: VENTOLIN HFA IH SCH ×6 (00:10→20:45)
--- NOTE | 2020-09-14 00:51 | DIREP ---
PROCEDURE:CHEST 1 VIEW COMPARISON:[facility] [place], CR, XRAY CHEST SINGLE VW, 09/13/2020, 05:58 PM. [facility], CR, XRAY CHEST SINGLE VW, 09/13/2020, 12:03 PM. INDICATIONS:PLACEMENT OF NGT FINDINGS: LINES/TUBES: ETT remains in place with its tip projecting above the saurabh at the T3 level. Interval advancement of the gastric catheter. The catheter now courses overlying the expected location stomach with its tip extending below the field of view in the right upper quadrant. LUNGS/PLEURA: Stable scattered bilateral opacities, most prominent in the mid to lower lungs, consistent with multifocal pneumonia. Small bilateral pleural effusions are suspected. No pneumothorax. CARDIAC: Heart and pulmonary vasculature are within normal limits. MEDIASTINUM: Normal. BONES: Stable mild scattered degenerative changes. No acute abnormality. OTHER: Monitor leads overlie the chest. CONCLUSION: 1. Advancement of the gastric catheter, which now projects over the expected location of the distal stomach. The tip is not visualized. 2. Stable ETT. 3. Stable multifocal bilateral pneumonia. 4. Additional chronic findings, as above. Dictated by: Surya Rae MD on 09/14/2020 at 00:47 AM
[2020-09-14] MEDS: DIPRIVAN IV SCH ×3 (03:49→15:41)
[2020-09-14 04:21] LABS: BASOPHIL % 0.1 % (0.0-0.2); LYMPHOCYTES # 0.45 10^3/uL1 (1.0-4.8); MEAN CORP HGB 29.2 pg (26-34); MONOCYTES # 0.4 10^3/uL (0.3-0.8); MONOCYTES % 2.5 % (5.0-12.0); NEUTROPHIL # 14.1 10^3/uL (1.8-7.7); NEUTROPHILS % 92.6 % (41.0-85.0); PLATELET COUNT 260 10^3/uL (150-400); RED CELL DISTRIBUTION WIDTH 12.9 % (11.5-14.5)
[2020-09-14] MEDS: HUMALOG SQ SCH ×4 (05:23→17:49)
[2020-09-14] MEDS: SOLU-MEDROL IV SCH ×3 (05:23→22:00)
[2020-09-14 05:30] LABS: CALCIUM 8.2 mg/dL (8.4-10.5); CARBON DIOXIDE 24.2 mmol/L (20.0-32)
[2020-09-14] MEDS: LOPRESSER PO SCH (07:11)
--- NOTE | 2020-09-14 07:52 | DIREP ---
PROCEDURE:CHEST 1 VIEW COMPARISON:[facility], CR, XRAY CHEST SINGLE VW, 09/13/2020, 10:31 PM. INDICATIONS:intuabated FINDINGS: LUNGS/PLEURA:Dense opacities within the periphery of the hemithoraces bilaterally, extending into the lung bases. This is not significantly changed from the previous study. There is no sizable pleural effusion. No pneumothorax. VASCULATURE:No pulmonary vascular congestion. CARDIAC:The heart is not significantly enlarged. MEDIASTINUM:Mediastinal contours appear within acceptable limits. BONES:No acute abnormality. OTHER:Endotracheal tube terminates at the level of the thoracic inlet, approximately 8 cm above the saurabh. This could be advanced 3-4 cm for more optimal positioning. Enteric tube courses distal to the diaphragm, likely terminating over the distal stomach. CONCLUSION: 1. Similar bilateral airspace disease would be most consistent with multifocal infectious or inflammatory pneumonitis. 2. Tubes and lines as discussed above. The endotracheal tube terminates approximately 8 cm above the saurabh and could be advanced 3-4 cm for more optimal positioning. Dictated by: Surya Tinoco M.D. On 09/14/2020 at 07:49 AM
[2020-09-14] MEDS: SUBLIMAZE IV SCH (08:38)
[2020-09-14] MEDS: NS IV SCH ×2 (08:38→09:26)
[2020-09-14 08:48] LABS: ABG PCO2 39.9 mmHg (35.0-45.0); ABG PH 7.377 (7.350-7.450); HCO3act 22.9 mmol/L (22.0-26.0); pO2 55.2 mmHg (80.0-100.0)
[2020-09-14] MEDS: ZINC SULFATE PO SCH ×2 (09:00→21:00)
[2020-09-14] MEDS: VITAMIN C PO SCH ×2 (09:00→21:00)
[2020-09-14] MEDS: LOVENOX SQ SCH ×2 (09:00→21:00)
[2020-09-14] MEDS: ZESTRIL PO SCH (09:00)
[2020-09-14] MEDS: PRECEDEX IV SCH (09:26)
--- NOTE | 2020-09-14 12:08 | DIET.OP ---
Nutrition Asmt/Malnutrit 2-17 Actual Date of Review: Sep 14, 2020 Diagnosis: Covid 19, Acute Hypoxemic Respiratory Failure Pertinent Medical Hx/Surgical: HTN, HLD, T2DM Subjective Information: telehealth f/u- pt intubated yesterday. Propofol at 16 mcg/kg/min providing 194 kcal. Gave tube feed recommendations to RN. Current Diet Order/Nutrition S: NPO Patient /S.O: Not Indicated Pertinent Meds Current Medications Medications (Trade) Dose Ordered Sig/Adrianna Route PRN Reason Start Time Stop Time Status Last Admin Dose Admin Acetaminophen (Tylenol) 325 mg Q4H PRN PO PAIN 1 - 3 09/03/20 19:00 09/05/20 19:26 DC Morphine Sulfate (Morphine Sulfate) 2 mg Q4H PRN IV PAIN 4 - 6 09/03/20 19:00 09/04/20 19:28 DC Insulin Human Lispro (Humalog) 0-140 0 Units 141-200... ACHS SQ 09/03/20 21:00 09/13/20 19:43 DC 09/13/20 17:28 Dextrose 1,000 ml @ 100 mls/hr Q10H PRN IV HYPOGLYCEMIA 09/03/20 19:00 10/03/20 18:59 Dextrose (Dextrose 50%-Water Syringe) 25 ml STAT PRN IV HYPOGLYCEMIA 09/03/20 19:00 10/03/20 18:59 Glucagon (Glucagen) 1 mg STAT STAT IV 09/03/20 18:44 09/03/20 18:56 DC Heparin Sodium (Porcine) (Heparin) 5,000 unit Q8HR SQ 09/03/20 22:00 09/04/20 20:10 DC 09/04/20 14:00 Lisinopril (Zestril) 20 mg BID PO 09/03/20 21:00 09/14/20 11:07 DC 09/12/20 21:00 Azithromycin 500 mg/Sodium Chloride 250 ml @ 175 mls/hr Q24HRS IV 09/03/20 20:30 09/04/20 08:15 DC 09/03/20 21:11 Ceftriaxone Sodium 1000 mg/ Sodium Chloride 100 ml @ 100 mls/hr Q24HRS IV 09/03/20 19:30 09/04/20 08:15 DC 09/03/20 19:39 Sodium Chloride 1,000 ml @ 75 mls/hr [id number] IV 09/03/20 20:00 09/11/20 10:16 DC 09/11/20 01:20 Ceftriaxone Sodium (Rocephin) 1,000 mg STK-MED ONCE .ROUTE 09/03/20 19:35 09/03/20 19:35 DC Sodium Chloride 100 ml @ ud STK-MED ONCE IV 09/03/20 19:35 09/03/20 19:36 DC Zinc Sulfate (Zinc Sulfate) 220 mg DAILY PO 09/04/20 09:00 09/05/20 00:13 DC 09/04/20 08:22 Ascorbic Acid (Vitamin C) 500 mg BID PO 09/04/20 09:00 09/05/20 00:13 DC 09/04/20 20:22 Morphine Sulfate (Morphine Sulfate) 2 mg Q4H PRN IV PAIN 4 - 6 09/04/20 19:28 10/03/20 18:59 Enoxaparin Sodium (Lovenox) 75 mg BID SQ 09/04/20 20:30 09/05/20 11:39 DC 09/05/20 08:20 Azithromycin (Zithromax) 500 mg OT ONCE PO 09/05/20 00:00 09/05/20 02:22 DC 09/05/20 00:27 Ceftriaxone Sodium 2000 mg/ Sodium Chloride 100 ml @ 100 mls/hr Q24HRS IV 09/05/20 00:00 09/09/20 18:46 DC 09/08/20 23:59 Azithromycin (Zithromax) 250 mg DAILY PO 09/05/20 19:00 09/09/20 18:59 DC 09/09/20 08:31 Ceftriaxone Sodium (Rocephin) 1,000 mg STK-MED ONCE .ROUTE 09/05/20 00:25 09/05/20 00:26 DC Sodium Chloride 100 ml @ ud STK-MED ONCE IV 09/05/20 00:26 09/05/20 00:26 DC Enoxaparin Sodium (Lovenox) 40 mg DAILY SQ 09/06/20 09:00 09/09/20 18:47 DC 09/09/20 08:31 Ascorbic Acid (Vitamin C) 1,000 mg BID PO 09/05/20 21:00 10/05/20 20:59 09/14/20 09:00 Zinc Sulfate (Zinc Sulfate) 220 mg BID PO 09/05/20 21:00 10/05/20 20:59 09/14/20 09:00 Albuterol Sulfate (Ventolin Hfa) 2 inh RTQ4 IH 09/05/20 13:00 10/05/20 12:59 09/14/20 08:30 Acetaminophen (Tylenol) 1,000 mg Q6H PRN PO PAIN 1 - 3 09/05/20 12:00 10/05/20 11:59 09/06/20 09:35 Enoxaparin Sodium (Lovenox) 40 mg STK-MED ONCE SQ 09/06/20 07:12 09/06/20 07:12 DC Remdesivir 200 mg/ Sodium Chloride 140 ml @ 120.69 mls/ hr OT STAT IV 09/07/20 18:45 09/07/20 19:54 DC 09/07/20 19:10 Remdesivir 100 mg/ Sodium Chloride 120 ml @ 111.111 mls/hr Q24HRS IV 09/08/20 19:00 09/13/20 07:12 DC 09/12/20 19:00 Potassium Chloride (Klor-Con 10) 40 meq OT PO 09/08/20 13:00 09/11/20 15:50 DC 09/09/20 04:56 Metoprolol Tartrate (Lopresser) 10 mg STAT STAT IVP 09/09/20 11:00 09/09/20 11:04 DC 09/09/20 11:34 Metoprolol Tartrate (Lopresser) 25 mg BID PO 09/09/20 21:00 09/14/20 11:02 DC 09/12/20 21:00 Enoxaparin Sodium (Lovenox) 80 mg BID SQ 09/09/20 19:00 09/11/20 15:51 DC 09/11/20 09:00 Sodium Chloride 250 ml @ ud STK-MED ONCE IV 09/10/20 12:50 09/10/20 12:51 DC Enoxaparin Sodium (Lovenox) 80 mg STK-MED ONCE SQ 09/10/20 21:17 09/10/20 21:17 DC Lorazepam (Ativan) 1 mg Q4HR PRN IV ANXIETY 09/11/20 00:30 10/11/20 00:29 09/13/20 04:00 Enoxaparin Sodium (Lovenox) 80 mg BID SQ 09/11/20 21:00 09/13/20 15:41 DC 09/12/20 21:00 Methylprednisolone Acetate (Depo-Medrol) 40 mg Q8HR IM 09/11/20 22:00 09/11/20 18:19 DC Quetiapine Fumarate (Seroquel) 25 mg BID PO 09/12/20 21:00 09/13/20 15:41 DC 09/12/20 21:00 Quetiapine Fumarate (Seroquel) 25 mg BID PO 09/13/20 03:00 09/13/20 04:46 DC Dexmedetomidine HCl 400 mcg/ Sodium Chloride 100 ml @ 0 mls/hr IV 09/13/20 05:00 10/13/20 04:59 09/14/20 09:26 Sodium Chloride 100 ml @ ud STK-MED ONCE IV 09/13/20 05:16 09/13/20 05:16 DC Hydralazine HCl (Apresoline) 5 mg STAT STAT IV 09/13/20 08:19 09/13/20 08:21 DC 09/13/20 08:30 Hydralazine HCl (Apresoline) 5 mg STAT STAT IV 09/13/20 09:43 09/13/20 10:03 DC 09/13/20 09:43 Sterile Water (Water) 1,000 ml STK-MED ONCE .ROUTE 09/13/20 11:31 09/13/20 11:31 DC Sodium Chloride 1,000 ml @ ud STK-MED ONCE .ROUTE 09/13/20 11:31 09/13/20 11:31 DC Propofol 100 ml @ ud STK-MED ONCE IV 09/13/20 11:46 09/13/20 11:47 DC Propofol (Diprivan) 1,000 mg STAT IV 09/13/20 13:00 10/13/20 12:59 09/14/20 09:26 Sodium Chloride 1,000 ml @ 0 mls/hr Q0M ONCE IV 09/13/20 11:45 09/13/20 13:21 DC 09/13/20 11:45 Fentanyl Citrate 2000 mcg/Sodium Chloride 200 ml @ 7.4 mls/hr IV 09/13/20 16:00 09/13/20 19:50 DC 09/13/20 16:17 Methylprednisolone Sodium Succinate (Solu-Medrol) 40 mg Q8HR IV 09/13/20 22:00 09/17/20 07:00 09/14/20 05:23 Succinylcholine Chloride (Quelicin) 100 mg STK-MED ONCE IV 09/13/20 11:58 09/13/20 18:48 DC Propofol (Diprivan) 150 mg STK-MED ONCE IV 09/13/20 11:58 09/13/20 18:48 DC Furosemide (Lasix) 20 mg STAT STAT IV 09/13/20 19:07 09/13/20 19:47 DC 09/13/20 19:07 Enoxaparin Sodium (Lovenox) 70 mg BID SQ 09/13/20 21:00 10/13/20 20:59 09/14/20 09:00 Insulin Human Lispro (Humalog) 0-140 0 Units 141-200... Q6 SQ 09/14/20 00:00 10/16/22 20:59 09/14/20 05:23 Fentanyl Citrate 5000 mcg/Sodium Chloride 500 ml @ 11.4 mls/hr IV 09/13/20 20:00 10/13/20 19:59 09/14/20 08:38 Sodium Chloride 500 ml @ 500 mls/hr Q1H ONCE IV 09/13/20 21:00 09/13/20 21:59 DC 09/13/20 21:00 Sodium Chloride 500 ml @ ud STK-MED ONCE IV 09/13/20 20:34 09/13/20 20:34 DC Sodium Chloride 250 ml @ ud STK-MED ONCE IV 09/13/20 20:34 09/13/20 20:34 DC Norepinephrine Bitartrate (Levophed) 4 mg STK-MED ONCE .ROUTE 09/13/20 20:34 09/13/20 20:35 DC Norepinephrine Bitartrate 8 mg/ Sodium Chloride 250 ml @ 0 mls/hr PRN PRN IV HYPOTENSION 09/13/20 21:00 10/13/20 20:59 09/13/20 20:47 Furosemide (Lasix) 40 mg STK-MED ONCE .ROUTE 09/13/20 21:19 09/13/20 21:19 DC Docusate Sodium (Colace) 100 mg BID PO 09/14/20 21:00 10/14/20 20:59 Pertinent Labs Laboratory Tests Test 09/12/20 15:44 09/12/20 21:13 09/13/20 04:13 09/13/20 07:45 Bedside Glucose 262 202 White Blood Count 13.7 10^3/uL Red Blood Count 4.63 10^6/uL Hemoglobin 13.4 g/dL Hematocrit 38.7 % Mean Corpuscular Volume 83.6 fL Mean Corpuscular Hemoglobin 28.9 pg Mean Corpuscular Hemoglobin Concent 34.6 g/dL Red Cell Distribution Width 12.4 % Platelet Count 132 10^3/uL Mean Platelet Volume 10.4 fL Neutrophils (%) (Auto) 89.9 % Lymphocytes (%) (Auto) 4.0 % Monocytes (%) (Auto) 4.7 % Neutrophils # (Auto) 12.3 10^3/uL Lymphocytes # (Auto) 0.55 10^3/uL1 Monocytes # (Auto) 0.6 10^3/uL Absolute Immature Granulocyte (auto 0.18 10^3 u/L Absolute Eosinophils (auto) 0.0 10^3/uL Immature Granulocytes % 1.30 % Eosinophils % 0.0 % Basophils % 0.1 % Basophils # 0.0 10^3/uL D-Dimer 6.10 mg/L Sodium Level 134 mmol/L Potassium Level 3.9 mmol/L Chloride Level 101.0 mmol/L Carbon Dioxide Level 24.6 mmol/L Anion Gap 12.3 Blood Urea Nitrogen 21 mg/dL Creatinine 0.83 mg/dL Estimated GFR () 112.9 Est GFR (CKD-EPI)(Non-Afr Bahamian) 93.3 BUN/Creatinine Ratio 25.0 Glucose Level 163 mg/dL Calcium Level 8.1 mg/dL Total Bilirubin 0.6 mg/dL Aspartate Amino Transf (AST/SGOT) 25 U/L Alanine Aminotransferase (ALT/SGPT) 18 U/L Alkaline Phosphatase 65 U/L Ammonia 32 umol/L Pro-B-Type Natriuretic Peptide 1380 pg/mL Total Protein 5.6 g/dL Albumin 1.9 g/dL Globulin 3.7 Albumin/Globulin Ratio 0.513 Blood Gas Sample Site RR Blood Gas pH 7.410 Blood Gas PCO2 47.1 mmHg Blood Gas PO2 55.4 mmHg Blood Gas HCO3 25.9 mmol/L Blood Gas Base Excess 1.1 mmol/L Abdi Test POSITIVE Arterial Blood Oxygen Saturation 87.4 % Deoxyhemoglobin 12.5 % Carboxyhemoglobin 0.8 % Methemoglobin 0.2 % Total Hemoglobin 13.9 % Total Oxygen Concentration 16.9 % Oxygen Delivery Method (LAB) BIPAP Blood Gas Vent Mode AVAPS Blood Gas Vent Rate 14 FiO2 100 % Blood Gas Tidal Volume 400 ML Blood Gas PEEP 8 CMH2O Total Carbon Dioxide 27.2 mmol/L Test 09/13/20 12:57 09/13/20 13:06 09/13/20 14:10 09/13/20 16:18 Bedside Glucose 195 Blood Gas Sample Site RR Blood Gas pH 7.388 Blood Gas PCO2 52.0 mmHg Blood Gas PO2 52.0 mmHg Blood Gas HCO3 22.7 mmol/L Blood Gas Base Excess -1.9 mmol/L Abdi Test POSITIVE Arterial Blood Oxygen Saturation 83.6 % Carboxyhemoglobin 0 % Methemoglobin 0.2 % Total Hemoglobin 14.7 % Blood Gas Temperature 37 Oxygen Delivery Method (LAB) VENT Blood Gas Vent Mode ACVC Blood Gas Vent Rate 25 FiO2 100 % Blood Gas Tidal Volume 400 ML Blood Gas PEEP 6 CMH2O Total Carbon Dioxide 23.9 mmol/L Urine Collection Type UNKNOWN Urine Color YELLOW Urine Appearance CLEAR Urine Bilirubin NEGATIVE MG/DL Urine Ketones NEGATIVE Urine Specific [place] 1.010 Urine pH 6.5 Urine Protein NEGATIVE Urine Urobilinogen NORMAL Urine Nitrate NEGATIVE Urine Leukocyte Esterase NEGATIVE Urine Blood NEGATIVE Urine Glucose 100 Procalcitonin 0.26 ng/mL Test 09/13/20 17:19 09/13/20 23:38 09/14/20 03:53 09/14/20 05:21 Bedside Glucose 243 137 184 White Blood Count 15.2 10^3/uL Red Blood Count 4.89 10^6/uL Hemoglobin 14.3 g/dL Hematocrit 41.5 % Mean Corpuscular Volume 84.9 fL Mean Corpuscular Hemoglobin 29.2 pg Mean Corpuscular Hemoglobin Concent 34.5 g/dL Red Cell Distribution Width 12.9 % Platelet Count 260 10^3/uL Mean Platelet Volume 10.3 fL Neutrophils (%) (Auto) 92.6 % Lymphocytes (%) (Auto) 3.0 % Monocytes (%) (Auto) 2.5 % Neutrophils # (Auto) 14.1 10^3/uL Lymphocytes # (Auto) 0.45 10^3/uL1 Monocytes # (Auto) 0.4 10^3/uL Absolute Immature Granulocyte (auto 0.27 10^3 u/L Absolute Eosinophils (auto) 0.0 10^3/uL Immature Granulocytes % 1.80 % Eosinophils % 0.0 % Basophils % 0.1 % Basophils # 0.0 10^3/uL Sodium Level 141 mmol/L Potassium Level 4.6 mmol/L Chloride Level 105.0 mmol/L Carbon Dioxide Level 24.2 mmol/L Anion Gap 16.4 Blood Urea Nitrogen 34 mg/dL Creatinine 1.14 mg/dL Estimated GFR () 78.3 Est GFR (CKD-EPI)(Non-Afr Bahamian) 64.7 BUN/Creatinine Ratio 29.0 Glucose Level 179 mg/dL Calcium Level 8.2 mg/dL Total Bilirubin 0.6 mg/dL Aspartate Amino Transf (AST/SGOT) 19 U/L Alanine Aminotransferase (ALT/SGPT) 16 U/L Alkaline Phosphatase 61 U/L Total Protein 5.8 g/dL Albumin 2.0 g/dL Globulin 3.8 Albumin/Globulin Ratio 0.526 Test 09/14/20 08:30 Blood Gas Sample Site RT RADIAL ARTERY Blood Gas pH 7.377 Blood Gas PCO2 39.9 mmHg Blood Gas PO2 55.2 mmHg Blood Gas HCO3 22.9 mmol/L Blood Gas Base Excess -2.0 mmol/L Abdi Test POSITIVE Arterial Blood Oxygen Saturation 85.5 % Deoxyhemoglobin 14.4 % Carboxyhemoglobin 0.7 % Methemoglobin 0.2 % Total Hemoglobin 15.1 % Total Oxygen Concentration 18.0 % Blood Gas Temperature 37 Oxygen Delivery Method (LAB) VENT Blood Gas Vent Mode ACVC Blood Gas Vent Rate 25 FiO2 100 % Blood Gas Tidal Volume 400 ML Blood Gas PEEP 10 CMH2O Total Carbon Dioxide 24.1 mmol/L Height (Feet): 5 Height (Inches): 6 Current Weight: 168 %IBW: 117 Recent Weight Change: No Weight Status: Overweight GI Symptoms: None Food Allergies: No Cultural/Ethnic/Zoroastrianism Marylou: none identified BEE in Kcals: Use Current Weight Calories/Kcals/Kg: [address] 2002 Kcals Calculated: 1687 kcal Protein: Use Current Weight Protein g/k.8-1 g/kg Protein Calculated: 60-75g Fluid: ml: 8473-8358 ml or 1 ml/kcal Nutritional Problem: Nutr. Problems Present Problems: Inadequate energy intake r/t SOB/reduced appetite AEB 0-50% po intake, pt refusing meals. Pt now intubated - TF to be started today 09/[address]: Add supplement feedings RD Comments: 1. Recommend Glucerna 1.5 165cc Q4h with 155cc water flush Q4. This will provide 1485 kcal, 81 g pro, 130 g CHO, 16 g fat, and 1687 ml of water to meet 100% of the pts nutrition needs in combination with calories from propofol. 2. Monitor K, Mg, and PO4 before and during EN initiation. 3. Monitor BG Q4hr and correct as indicated. RD to monitor TF tolerance, weight, labs, care plan, and vent and sedation setting. Will update recommendations accordingly. Expected Outcomes TF meeting 100% of pts needs the next 2 days and tolerated well. Discharge goal is pending. Malnutrtion/Nutrition Risk Edu: No MD Notificiation Needed?: No Jessica Morris Sep 14, 2020 12:08
--- NOTE | 2020-09-14 14:23 | PRM.PN ---
Subjective Subjective Date: Sep 14, 2020 Time: 14:12 Subjective Nursing worried about aggression and hypotension VTE VTE Risk Total Score: 2 VTE Risk Score VTE Risk: Score 0-1 = Low Risk (Aggressive mobilization; early ambulation; no VTE prophylaxis required) Score 2: Moderate Risk (Intermittent/Pneumatic Compression Device OR Lovenox/Heparin/Coumadin) Score 3-4: High Risk (Intermittent/Pneumatic Compression Device AND Lovenox/Heparin/Coumadin) Score > or =5: Highest Risk (Intermittent/Pneumatic Compression Device AND Lovenox/Heparin/Coumadin) Antico:Hep/LMWH/Coum/Xarelto: Yes Review of Systems Other non verbal - sedated and intubated Allergies: Coded Allergies: No Known Allergies (Unverified , 09/03/20) Scheduled Lisinopril (Lisinopril), 1 TAB PO BID, (Reported) Metformin Hcl (Metformin Hcl), 1,000 MG PO BID, (Reported) Objective Vitals and I/O Vital Sign - Last 24 Hours 09/14/20 09/14/20 09/14/20 09/14/20 07:00 07:11 07:15 07:15 Temp 98.6 98.6 98.6 Pulse 63 65 65 65 Resp 25 25 B/P (MAP) 102/65 (77) 91/58 96/61 (73) 96/61 (73) Pulse Ox 95 95 95 09/14/20 09/14/20 09/14/20 09/14/20 07:30 07:45 08:00 08:00 Temp 98.6 98.8 Pulse 68 67 66 Resp 25 27 B/P (MAP) 94/59 (71) 91/58 (69) Pulse Ox 93 92 92 O2 Delivery Mechanical Ventilator O2 Flow Rate 100.00 FiO2 100 09/14/20 09/14/20 09/14/20 09/14/20 08:07 08:09 08:11 08:15 Temp 98.8 98.8 98.6 98.8 Pulse 65 67 71 61 Resp 25 31 25 B/P (MAP) 81/47 (58) 78/48 (58) 103/58 (73) 96/58 (71) Pulse Ox 91 92 96 94 09/14/20 09/14/20 09/14/20 09/14/20 08:17 08:17 08:17 08:30 Temp 98.6 Pulse 73 73 73 65 Resp 31 31 31 20 B/P (MAP) 104/64 (77) Pulse Ox 90 90 90 93 O2 Delivery Mechanical Ventilator FiO2 100 100 09/14/20 09/14/20 09/14/20 09/14/20 08:31 08:45 09:00 09:00 Temp 98.6 98.8 98.8 Pulse 67 64 65 Resp 16 12 17 B/P (MAP) 128/73 (91) 107/68 (81) 94/62 (73) 96/60 Pulse Ox 94 93 91 09/14/20 09/14/20 09/14/20 09/14/20 09:15 09:30 09:44 09:45 Temp 98.8 98.8 98.8 98.8 Pulse 67 66 68 69 Resp 21 20 25 13 B/P (MAP) 96/60 (72) 95/59 (71) 94/61 (72) Pulse Ox 90 93 87 87 09/14/20 09/14/20 09/14/20 09/14/20 10:00 10:15 10:30 10:45 Temp 98.8 98.8 98.6 98.6 Pulse 64 64 64 62 Resp 25 26 25 26 B/P (MAP) 111/66 (81) Pulse Ox 93 93 93 94 09/14/20 09/14/20 09/14/20 09/14/20 11:00 11:15 11:23 11:23 Temp 98.6 98.8 Pulse 64 65 65 65 Resp 26 25 25 25 B/P (MAP) 97/61 (73) 95/62 (73) Pulse Ox 90 90 90 90 FiO2 100 09/14/20 09/14/20 09/14/20 11:30 11:30 12:00 Temp 98.8 Pulse 64 64 Resp 25 25 B/P (MAP) 94/59 (71) Pulse Ox 89 90 O2 Delivery Mechanical Ventilator O2 Flow Rate 100.00 FiO2 100 Intake and Output 09/14/20 07:00 Intake Total 2315.70 ml Output Total 1850 ml Balance 465.70 ml General: Other (sedated and intubated ) HEENT: Mucous membr. moist/pink Neck: No JVD Lungs: Clear to auscultation, Normal air movement Heart: Regular rate ( ), Normal S1, Normal S2, No murmurs Abdomen: Normal bowel sounds, Soft, No tenderness Extremities: No edema, Normal pulses, No tenderness/swelling Skin: No significant lesion All Results(Lab/Rad) Laboratory Tests Test 09/03/20 21:02 09/04/20 04:47 09/04/20 05:59 09/04/20 07:15 Bedside Glucose 164 120 123 White Blood Count 8.1 10^3/uL Red Blood Count 4.89 10^6/uL Hemoglobin 14.2 g/dL Hematocrit 40.7 % Mean Corpuscular Volume 83.2 fL Mean Corpuscular Hemoglobin 29.0 pg Mean Corpuscular Hemoglobin Concent 34.9 g/dL Red Cell Distribution Width 12.0 % Platelet Count 185 10^3/uL Mean Platelet Volume 9.6 fL Neutrophils (%) (Auto) 83.5 % Lymphocytes (%) (Auto) 9.7 % Monocytes (%) (Auto) 6.0 % Neutrophils # (Auto) 6.8 10^3/uL Lymphocytes # (Auto) 0.79 10^3/uL1 Monocytes # (Auto) 0.5 10^3/uL Absolute Immature Granulocyte (auto 0.05 10^3 u/L Absolute Eosinophils (auto) 0.0 10^3/uL Immature Granulocytes % 0.60 % Eosinophils % 0.0 % Basophils % 0.2 % Basophils # 0.0 10^3/uL Sodium Level 132 mmol/L Potassium Level 3.6 mmol/L Chloride Level 97.0 mmol/L Carbon Dioxide Level 26.0 mmol/L Anion Gap 12.6 Blood Urea Nitrogen 21 mg/dL Creatinine 1.18 mg/dL Estimated GFR () 75.2 Est GFR (CKD-EPI)(Non-Afr Palestinian) 62.1 BUN/Creatinine Ratio 17.0 Glucose Level 118 mg/dL Hemoglobin A1c 8.0 % Calcium Level 8.3 mg/dL Total Bilirubin 0.7 mg/dL Aspartate Amino Transf (AST/SGOT) 55 U/L Alanine Aminotransferase (ALT/SGPT) 37 U/L Alkaline Phosphatase 40 U/L Total Protein 6.5 g/dL Albumin 2.3 g/dL Globulin 4.2 Albumin/Globulin Ratio 0.547 Triglycerides Level 65 mg/dL Cholesterol Level 76 mg/dL LDL Cholesterol, Calculated 26.0 VLDL Cholesterol, Calculated 13.0 HDL Cholesterol 37 mg/dL Cholesterol Ratio (LDL/HDL) 0.7 Cholesterol/HDL Ratio [id number] Test 09/04/20 11:37 09/04/20 12:22 09/04/20 16:36 Bedside Glucose 159 131 D-Dimer 1.85 mg/L Troponin I < 0.02 ng/mL Pro-B-Type Natriuretic Peptide 97 pg/mL Current Medications Medications (Trade) Dose Ordered Sig/Adrianna Route PRN Reason Start Time Stop Time Status Last Admin Dose Admin Acetaminophen (Tylenol) 325 mg Q4H PRN PO PAIN 1 - 3 09/03/20 19:00 10/03/20 18:59 Morphine Sulfate (Morphine Sulfate) 2 mg Q4H PRN IV PAIN 4 - 6 09/03/20 19:00 09/04/20 19:28 DC Insulin Human Lispro (Humalog) 0-140 0 Units 141-200... ACHS SQ 09/03/20 21:00 10/03/20 20:59 09/04/20 11:30 Dextrose 1,000 ml @ 100 mls/hr Q10H PRN IV HYPOGLYCEMIA 09/03/20 19:00 10/03/20 18:59 Dextrose (Dextrose 50%-Water Syringe) 25 ml STAT PRN IV HYPOGLYCEMIA 09/03/20 19:00 10/03/20 18:59 Glucagon (Glucagen) 1 mg STAT STAT IV 09/03/20 18:44 09/03/20 18:56 DC Heparin Sodium (Porcine) (Heparin) 5,000 unit Q8HR SQ 09/03/20 22:00 10/03/20 21:59 09/04/20 14:00 Lisinopril (Zestril) 20 mg BID PO 09/03/20 21:00 10/03/20 20:59 09/04/20 08:22 Azithromycin 500 mg/Sodium Chloride 250 ml @ 175 mls/hr Q24HRS IV 09/03/20 20:30 09/04/20 08:15 DC 09/03/20 21:11 Ceftriaxone Sodium 1000 mg/ Sodium Chloride 100 ml @ 100 mls/hr Q24HRS IV 09/03/20 19:30 09/04/20 08:15 DC 09/03/20 19:39 Sodium Chloride 1,000 ml @ 75 mls/hr [id number] IV 09/03/20 20:00 10/03/20 19:59 09/04/20 09:20 Ceftriaxone Sodium (Rocephin) 1,000 mg STK-MED ONCE .ROUTE 09/03/20 19:35 09/03/20 19:35 DC Sodium Chloride 100 ml @ ud STK-MED ONCE IV 09/03/20 19:35 09/03/20 19:36 DC Zinc Sulfate (Zinc Sulfate) 220 mg DAILY PO 09/04/20 09:00 10/04/20 08:59 09/04/20 08:22 Ascorbic Acid (Vitamin C) 500 mg BID PO 09/04/20 09:00 10/04/20 08:59 09/04/20 08:22 Morphine Sulfate (Morphine Sulfate) 2 mg Q4H PRN IV PAIN 4 - 6 09/04/20 19:28 10/03/20 18:59 Course Sepsis Screening Results: Posi: POSITIVE++ Sepsis Qualifier/Stage: SEVERE SEPSIS RISK DATE SEEN BY PHYSICIAN: Sep 11, 2020 TIME SEEN BY PROVIDER: 13:20 Vitals & review Data Vital Sign - Last 24 Hours 09/11/20 09/11/20 09/11/20 09/11/20 07:00 07:00 07:30 08:00 Temp 98.0 Pulse 62 67 Resp 28 27 B/P (MAP) 160/83 (108) 150/75 (100) Pulse Ox 96 91 O2 Delivery Non-Rebreather O2 Flow Rate 15.00 09/11/20 09/11/20 09/11/20 09/11/20 08:25 08:40 09:00 09:00 Pulse 65 87 81 Resp 22 19 B/P (MAP) 149/72 149/86 Pulse Ox 93 94 O2 Delivery Non-Rebreather O2 Flow Rate 15.00 FiO2 100 09/11/20 09/11/20 09/11/20 09/11/20 09:00 10:00 11:00 12:00 Pulse 67 74 68 Resp 25 30 35 B/P (MAP) 149/72 (97) 128/69 (88) 134/65 (88) Pulse Ox 93 88 91 O2 Delivery Non-Rebreather O2 Flow Rate 15.00 Intake and Output 09/11/20 07:00 Intake Total 335 ml Output Total 670 ml Balance -335 ml Laboratory Tests Test 09/09/20 16:50 1/10/21 19:54 09/10/20 04:26 09/10/20 04:54 Bedside Glucose 192 219 93 White Blood Count 11.8 10^3/uL Red Blood Count 4.77 10^6/uL Hemoglobin 13.8 g/dL Hematocrit 39.8 % Mean Corpuscular Volume 83.4 fL Mean Corpuscular Hemoglobin 28.9 pg Mean Corpuscular Hemoglobin Concent 34.7 g/dL Red Cell Distribution Width 12.3 % Platelet Count 361 10^3/uL Mean Platelet Volume 9.2 fL Neutrophils (%) (Auto) 84.0 % Lymphocytes (%) (Auto) 9.0 % Monocytes (%) (Auto) 4.8 % Neutrophils # (Auto) 9.9 10^3/uL Lymphocytes # (Auto) 1.06 10^3/uL1 Monocytes # (Auto) 0.6 10^3/uL Absolute Immature Granulocyte (auto 0.23 10^3 u/L Absolute Eosinophils (auto) 0.0 10^3/uL Immature Granulocytes % 2.00 % Eosinophils % 0.1 % Basophils % 0.1 % Basophils # 0.0 10^3/uL D-Dimer 8.09 mg/L Sodium Level 140 mmol/L Potassium Level 3.7 mmol/L Chloride Level 106.0 mmol/L Carbon Dioxide Level 27.2 mmol/L Anion Gap 10.5 Blood Urea Nitrogen 19 mg/dL Creatinine 0.96 mg/dL Estimated GFR () 95.4 Est GFR (CKD-EPI)(Non-Afr Palestinian) 78.9 BUN/Creatinine Ratio 19.0 Glucose Level 100 mg/dL Calcium Level 7.9 mg/dL Phosphorus Level 2.4 mg/dL Magnesium Level 1.8 mg/dL Ferritin 1073 ng/mL Total Bilirubin 0.7 mg/dL Aspartate Amino Transf (AST/SGOT) 27 U/L Alanine Aminotransferase (ALT/SGPT) 29 U/L Alkaline Phosphatase 58 U/L Lactate Dehydrogenase 295 U/L Total Creatine Kinase 41 U/L C-Reactive Protein 3.25 mg/dL Total Protein 5.7 g/dL Albumin 2.0 g/dL Globulin 3.7 Albumin/Globulin Ratio 0.540 Procalcitonin 0.10 ng/mL Test 09/10/20 07:10 09/10/20 11:33 09/10/20 16:46 09/10/20 19:51 Bedside Glucose 134 173 178 169 Test 09/11/20 01:56 09/11/20 02:03 09/11/20 05:13 09/11/20 05:14 Bedside Glucose 159 145 Blood Gas Sample Site LB Blood Gas pH 7.398 Blood Gas PCO2 31.4 mmHg Blood Gas PO2 54.5 mmHg Blood Gas HCO3 18.9 mmol/L Blood Gas Base Excess -4.8 mmol/L Abdi Test POSITIVE Arterial Blood Oxygen Saturation 87.1 % Deoxyhemoglobin 12.9 % Carboxyhemoglobin 0.3 % Methemoglobin 0.0 % Total Hemoglobin 13.4 % Total Oxygen Concentration 16.3 % Blood Gas Temperature 37 Oxygen Delivery Method (LAB) NON-REBREATHER MASK FiO2 100 % Total Carbon Dioxide 19.9 mmol/L White Blood Count 11.5 10^3/uL Red Blood Count 4.66 10^6/uL Hemoglobin 13.4 g/dL Hematocrit 39.1 % Mean Corpuscular Volume 83.9 fL Mean Corpuscular Hemoglobin 28.8 pg Mean Corpuscular Hemoglobin Concent 34.3 g/dL Red Cell Distribution Width 12.2 % Platelet Count 296 10^3/uL Mean Platelet Volume 9.2 fL Neutrophils (%) (Auto) 87.0 % Lymphocytes (%) (Auto) 5.9 % Monocytes (%) (Auto) 5.0 % Neutrophils # (Auto) 10.0 10^3/uL Lymphocytes # (Auto) 0.68 10^3/uL1 Monocytes # (Auto) 0.6 10^3/uL Absolute Immature Granulocyte (auto 0.23 10^3 u/L Absolute Eosinophils (auto) 0.0 10^3/uL Immature Granulocytes % 2.00 % Eosinophils % 0.0 % Basophils % 0.1 % Basophils # 0.0 10^3/uL Sodium Level 139 mmol/L Potassium Level 3.9 mmol/L Chloride Level 106.0 mmol/L Carbon Dioxide Level 23.2 mmol/L Anion Gap 13.7 Blood Urea Nitrogen 22 mg/dL Creatinine 0.88 mg/dL Estimated GFR () 105.5 Est GFR (CKD-EPI)(Non-Afr Palestinian) 87.2 BUN/Creatinine Ratio 25.0 Glucose Level 151 mg/dL Calcium Level 8.3 mg/dL Phosphorus Level 3.1 mg/dL Magnesium Level 2.3 mg/dL Total Bilirubin 0.7 mg/dL Aspartate Amino Transf (AST/SGOT) 27 U/L Alanine Aminotransferase (ALT/SGPT) 23 U/L Alkaline Phosphatase 71 U/L Total Protein 5.7 g/dL Albumin 2.0 g/dL Globulin 3.7 Albumin/Globulin Ratio 0.540 Test 09/11/20 05:41 09/11/20 07:35 09/11/20 07:50 09/11/20 11:42 Blood Gas Sample Site RT RADIAL ARTERY RR Blood Gas pH 7.405 7.398 Blood Gas PCO2 35.2 mmHg 36.1 mmHg Blood Gas PO2 53.5 mmHg 52.5 mmHg Blood Gas HCO3 21.6 mmol/L 21.8 mmol/L Blood Gas Base Excess -2.5 mmol/L -2.5 mmol/L Abdi Test POSITIVE POSITIVE Arterial Blood Oxygen Saturation 87.9 % 86.0 % Deoxyhemoglobin 12.1 % 13.9 % Carboxyhemoglobin 0 % 0.6 % Methemoglobin 0.1 % 0.3 % Total Hemoglobin 14.0 % 13.9 % Total Oxygen Concentration 17.3 % 16.6 % Blood Gas Temperature 37 37 Oxygen Delivery Method (LAB) NON-REBREATHER MASK NON-REBREATHER MASK FiO2 100 % 100 % Total Carbon Dioxide 22.6 mmol/L 22.9 mmol/L Bedside Glucose 133 185 Current Medications Medications (Trade) Dose Ordered Sig/Adrianna PRN Reason Start Time Stop Time Status Last Admin Enoxaparin Sodium (Lovenox) 80 mg BID 09/09/20 19:00 10/04/20 20:29 09/11/20 09:00 Lorazepam (Ativan) 1 mg Q4HR PRN ANXIETY 09/11/20 00:30 10/11/20 00:29 09/11/20 09:00 Metoprolol Tartrate (Lopresser) 25 mg BID 09/09/20 21:00 10/09/20 20:59 09/11/20 09:00 Remdesivir 100 mg/ Sodium Chloride 120 ml @ 111.111 mls/hr Q24HRS 09/08/20 19:00 10/08/20 18:59 09/10/20 18:00 LEVEL 1 SEPSIS INFECTION CRITE: ABX Therapy, Cough/Shortness of Breath, Flu- Pneumonia LEVEL 2-SIRS (LIST ALL THAT AP: RR>20/min, WBC>[id number] Cardiovascular Evidence: Not Assessed or None Hematologic Evidence: None/Not assessed Hepatic Evidence: None/Not assessed Metabolic Evidence: None/Not assessed Neurological Evidence: Altered Mental Status Respiratory Evidence: Acute Resp failure, Need for O2 to keep>90%, O2 SAT<90room air Renal Evidence: None/Not assessed O2 Sat by Pulse Oximetry: 89 Oxygen Flow Rate: 100.00 Assessment/Plan Assessment/Plan Assessment/Plan A 64 year old male with Covid -19 pneumonia and hypoxia - currently needing mechanical ventilation Plan ACUTE RESPIRATORY FAILURE WITH HYPOXIA - NIPPV - chest Xray - no change COVID PNEUMONIA - continue steroid regimen - continue anecdotal medications - serial acute phase reactants - procalcitonin rising - may benefit from CAP management HYPERTENSION - hypotension - antihypertensive held - on pressors DIABETES MELLITUS - entereal feeding ongoing - continue sliding scale LEUKOCYTOSIS - steriod induced SALOME WATERS MD Sep 14, 2020 14:23
--- NOTE | 2020-09-14 14:50 | NUR ---
Notified Dr. Young patient urine output 190 for the last 8 hours. Provider ordered 75ml hr Normal saline continuous.
[2020-09-14] MEDS: ROCEPHIN 1,000 MG in NS 100ML 100 ML IV SCH (15:00)
[2020-09-14] MEDS: NS 1000ML 1,000 ML IV SCH (15:30)
[2020-09-14] MEDS: ZITHROMAX 500 MG in NS 250ML 250 ML IV SCH (16:00)
--- NOTE | 2020-09-14 16:12 | TELE.CONS ---
Consultation Reason for Consult: Reason for Consultation: COVID/ARDS Review of Systems Allergies: Coded Allergies: No Known Allergies (Unverified , 09/03/20) Scheduled Lisinopril (Lisinopril), 1 TAB PO BID, (Reported) Metformin Hcl (Metformin Hcl), 1,000 MG PO BID, (Reported) VITALS REVIEW VITALS Vital Sign - Last 24 Hours 09/14/20 09/14/20 09/14/20 09/14/20 07:00 07:11 07:15 07:15 Temp 98.6 98.6 98.6 Pulse 63 65 65 65 Resp 25 25 B/P (MAP) 102/65 (77) 91/58 96/61 (73) 96/61 (73) Pulse Ox 95 95 95 09/14/20 09/14/20 09/14/20 09/14/20 07:30 07:45 08:00 08:00 Temp 98.6 98.8 Pulse 68 67 66 Resp 27 25 B/P (MAP) 94/59 (71) 91/58 (69) Pulse Ox 93 92 92 O2 Delivery Mechanical Ventilator FiO2 100 100 09/14/20 09/14/20 09/14/20 09/14/20 08:00 08:07 08:09 08:11 Temp 98.8 98.8 98.6 Pulse 65 67 71 Resp 24 25 31 B/P (MAP) 81/47 (58) 78/48 (58) 103/58 (73) Pulse Ox 91 92 96 O2 Delivery Mechanical Ventilator O2 Flow Rate 100.00 09/14/20 09/14/20 09/14/20 09/14/20 08:15 08:17 08:17 08:17 Temp 98.8 Pulse 61 73 73 73 Resp 31 31 B/P (MAP) 96/58 (71) Pulse Ox 94 90 90 90 O2 Delivery Mechanical Ventilator FiO2 100 100 09/14/20 09/14/20 09/14/20 09/14/20 08:30 08:31 08:45 09:00 Temp 98.6 98.6 98.8 98.8 Pulse 65 67 64 65 Resp 20 16 12 17 B/P (MAP) 104/64 (77) 128/73 (91) 107/68 (81) 94/62 (73) Pulse Ox 93 94 93 91 09/14/20 09/14/20 09/14/20 09/14/20 09:00 09:15 09:30 09:44 Temp 98.8 98.8 98.8 Pulse 67 66 68 Resp 20 25 B/P (MAP) 96/60 96/60 (72) 95/59 (71) 94/61 (72) Pulse Ox 90 93 87 09/14/20 09/14/20 09/14/20 09/14/20 09:45 10:00 10:15 10:30 Temp 98.8 98.8 98.8 98.6 Pulse 69 64 64 64 Resp 13 25 26 25 Pulse Ox 87 93 93 93 09/14/20 09/14/20 09/14/20 09/14/20 10:45 11:00 11:15 11:23 Temp 98.6 98.6 98.8 Pulse 62 64 65 65 Resp 26 26 25 25 B/P (MAP) 111/66 (81) 97/61 (73) 95/62 (73) Pulse Ox 94 90 90 90 09/14/20 09/14/20 09/14/20 09/14/20 11:23 11:30 11:30 12:00 Temp 98.8 Pulse 65 64 64 Resp 25 25 25 B/P (MAP) 94/59 (71) Pulse Ox 90 89 90 O2 Delivery Mechanical Ventilator O2 Flow Rate 100.00 FiO2 100 100 09/14/20 09/14/20 13:50 13:50 Pulse 62 62 Resp 25 25 Pulse Ox 92 92 FiO2 100 Intake and Output 09/14/20 05:59 Intake Total 2315.70 ml Output Total 2450 ml Balance -134.30 ml VTE VTE Risk Total Score: 2 VTE Risk Score VTE Risk: Score 0-1 = Low Risk (Aggressive mobilization; early ambulation; no VTE prophylaxis required) Score 2: Moderate Risk (Intermittent/Pneumatic Compression Device OR Lovenox/Heparin/Coumadin) Score 3-4: High Risk (Intermittent/Pneumatic Compression Device AND Lovenox/Heparin/Coumadin) Score > or =5: Highest Risk (Intermittent/Pneumatic Compression Device AND Lovenox/Heparin/Coumadin) Antico:Hep/LMWH/Coum/Xarelto: Yes VTE VTE Present on Admission: No Currently receiving anticoagul: No VTE Risk Total Score: 2 Antico:Hep/LMWH/Coum/Xarelto: Yes Assessment/Plan Assessment/Plan Assessment/Plan COVID/ARDS Remains sedated Remains intubated; 7.37/39/55/22 on ACVC 400x25, 100, P10 Sats around 90 Significant fluids given yesterday Remains on norepi On empiric abx On increased dosing IV steroids Renal function slightly worse A/P COVID ARDS Keep sedation for goal RASS -3; Trying to decrease propofol due to hypotension Continue mechanical ventilation; Compliance low 30s; Plateaus mid 20s; Increase PEEP to hopefully wean FiO2 for goal sats 88 Keep norepi; Hold BB/AceI Monitor renal function; Would like to diurese in the next 24 hours Continue IV steroids - increased dosing; Check CRP tomorrow Continue Azith/Ceft; Monitor WBC Enteral nutrition indicated Glycemic control in place LMWH therapeutic dosing 60 minutes critical care time spent evaluating patient, reviewing EMR, and discussing with staff via 2 way audiovisual technology. MOHIT GAN MD Sep 14, 2020 16:12
--- NOTE | 2020-09-14 16:29 | NUR ---
Notified Dr. Young patient blood pressure 77/44, increasing levophed drip until reaching map of 65. Requested for an arterial line and central line for vesicant medication administration and accurate blood pressure reading. Provider place order and consult for anesthesia was placed and contacted.
[2020-09-14] MEDS ORDERED: NORCURON ONE (18:40)
--- NOTE | 2020-09-14 18:40 | NUR ---
Anesthesia consult requested for arterial line and central line placement. ICU programming internship , Adelina- instructed to call General Surgeon for Central line placement. Anesthesia at bedside with assigned RN for ICU bed 5. Left Radial pulse assessed, Negative Abdi's Test. 20 gauge Arrow Radial Artery Catheterization Set used with direct visualization under Ultrasound Guidance. Successful on first attempt. Pressure bag, arterial pressure monitoring system set up and calibrated by assigned RN. Heparin used in pressure , appropriate concentration confirmed. Arterial line secured with Tegaderm and liquid adhesive. Appropriate wavefrom with dicrotic notch noted on bedside monitor. Dr. Kevon Rondon,DNP, DIRECTOR OF DEMENTIA OPERATIONS
--- NOTE | 2020-09-14 19:15 | NUR ---
Dr. Kevon Rondon,DNP, [employer] ATTENDANT at bedside to place arterial line. Time out completed. Sterile technique used. Pressure bag 500 ml of heprain 1000 units. Transducer leveled to phlebostatic axis, dicrotic notch noted with zero.
[2020-09-14] MEDS: COLACE PO SCH (21:00)
[2020-09-15] VITALS (101 sets, daily range): BP systolic 1–154; BP diastolic 1–77
[2020-09-15] MEDS: VENTOLIN HFA IH SCH ×6 (00:11→21:00)
[2020-09-15] MEDS ORDERED: WATER ONE ×2 (00:38→20:12)
[2020-09-15] MEDS: DIPRIVAN IV SCH ×4 (02:30→21:48)
[2020-09-15 05:45] LABS: LYMPHOCYTES # 0.42 10^3/uL1 (1.0-4.8); LYMPHOCYTES % 2.5 % (24.0-44.0); MEAN CORP HGB 29.1 pg (26-34); MONOCYTES # 0.6 10^3/uL (0.3-0.8); MONOCYTES % 3.7 % (5.0-12.0); NEUTROPHIL # 15.5 10^3/uL (1.8-7.7); NEUTROPHILS % 92.1 % (41.0-85.0); PLATELET COUNT 355 10^3/uL (150-400); RED CELL DISTRIBUTION WIDTH 13.1 % (11.5-14.5)
[2020-09-15 06:00] LABS: CALCIUM 7.1 mg/dL (8.4-10.5); CARBON DIOXIDE 23.9 mmol/L (20.0-32)
[2020-09-15] MEDS: SOLU-MEDROL IV SCH ×3 (06:00→21:48)
[2020-09-15] MEDS: HUMALOG SQ SCH ×4 (06:00→17:10)
[2020-09-15 07:20] LABS: LYMPHOCYTE 1 % (25-36); MONOCYTE 1 % (3-9); SEGMENTED NEUTROPHILS 98 % (31-76)
[2020-09-15] MEDS: VITAMIN C PO SCH ×2 (08:26→20:39)
[2020-09-15] MEDS: ZINC SULFATE PO SCH ×2 (08:26→20:39)
[2020-09-15] MEDS: COLACE PO SCH ×2 (08:26→20:39)
[2020-09-15] MEDS: LOVENOX SQ SCH ×2 (08:26→20:39)
[2020-09-15 08:42] LABS: ABG PCO2 42.5 mmHg (35.0-45.0); ABG PH 7.335 (7.350-7.450); BE(B) -3.6 mmol/L (-2.0-2.0); HCO3act 22.2 mmol/L (22.0-26.0); pO2 72.2 mmHg (80.0-100.0)
[2020-09-15] MEDS: NS 1000ML 1,000 ML IV SCH ×2 (09:00→18:10)
--- NOTE | 2020-09-15 13:09 | TELE.CONS ---
Review of Systems Allergies: Coded Allergies: No Known Allergies (Unverified , 09/03/20) Scheduled Lisinopril (Lisinopril), 1 TAB PO BID, (Reported) Metformin Hcl (Metformin Hcl), 1,000 MG PO BID, (Reported) VITALS REVIEW VITALS Vital Sign - Last 24 Hours 09/15/20 09/15/20 09/15/20 09/15/20 07:15 07:30 07:30 07:45 Temp 99.0 99.0 Pulse 66 70 69 Resp 25 25 B/P (MAP) 120/61 (80) 111/50 (70) 119/53 (75) Pulse Ox 99 98 98 O2 Delivery Mechanical Ventilator O2 Flow Rate 100.00 FiO2 100 09/15/20 09/15/20 09/15/20 09/15/20 08:00 08:10 08:10 08:10 Temp 99.0 Pulse 69 74 74 74 Resp 25 25 B/P (MAP) 102/57 (72) 113/51 (71) Pulse Ox 98 98 98 98 O2 Delivery Mechanical Ventilator FiO2 100 100 09/15/20 09/15/20 09/15/20 09/15/20 08:15 08:30 08:45 09:00 Temp 99.0 99.0 99.0 99.0 Pulse 75 79 75 70 Resp 25 25 B/P (MAP) 107/50 (69) 106/50 (68) 113/51 (71) 106/55 (72) 113/52 (72) Pulse Ox 99 98 99 98 09/15/20 09/15/20 09/15/20 09/15/20 09:15 09:30 09:45 10:00 Temp 99.0 99.0 99.0 99.0 Pulse 68 67 69 67 Resp 25 25 B/P (MAP) 116/52 (73) 117/50 (72) 114/48 (70) 101/54 (70) 118/50 (72) Pulse Ox 98 98 98 98 09/15/20 09/15/20 09/15/20 09/15/20 10:15 10:30 10:45 11:00 Temp 99.0 99.0 99.0 99.0 Pulse 67 64 62 63 Resp 25 25 B/P (MAP) 117/50 (72) 125/52 (76) 126/52 (76) 103/55 (71) 120/50 (73) Pulse Ox 98 99 99 99 09/15/20 09/15/20 09/15/20 09/15/20 11:15 11:30 11:30 11:45 Temp 99.0 98.8 98.8 Pulse 62 61 62 62 Resp 25 26 25 65 B/P (MAP) 120/50 (73) 119/49 (72) 126/53 (77) Pulse Ox 99 99 98 99 FiO2 100 09/15/20 09/15/20 09/15/20 09/15/20 12:00 12:00 12:15 12:30 Temp 98.6 98.6 98.4 98.2 Pulse 60 60 58 67 Resp 9 9 25 26 B/P (MAP) 108/59 (75) 108/59 (75) 125/52 (76) 108/44 (65) 124/52 (76) 124/52 (76) Pulse Ox 99 99 99 98 09/15/20 12:45 Temp 98.2 Pulse 76 Resp 25 B/P (MAP) 116/46 (69) Pulse Ox 99 Intake and Output 09/15/20 05:59 Intake Total 1526.99 ml Output Total 250 ml Balance 1276.99 ml VTE VTE Risk Total Score: 2 VTE Risk Score VTE Risk: Score 0-1 = Low Risk (Aggressive mobilization; early ambulation; no VTE prophylaxis required) Score 2: Moderate Risk (Intermittent/Pneumatic Compression Device OR Lovenox/Heparin/Coumadin) Score 3-4: High Risk (Intermittent/Pneumatic Compression Device AND Lovenox/Heparin/Coumadin) Score > or =5: Highest Risk (Intermittent/Pneumatic Compression Device AND Lovenox/Heparin/Coumadin) Antico:Hep/LMWH/Coum/Xarelto: Yes VTE VTE Present on Admission: No Currently receiving anticoagul: No VTE Risk Total Score: 2 Antico:Hep/LMWH/Coum/Xarelto: Yes Assessment/Plan Assessment/Plan Assessment/Plan COVID/ARDS Remains sedated Remains intubated; ABG acceptable on ACVC 360 peep 12 FiO2 1.0 RR 26. Episode of hypoxemia during a turn this AM to 82%, now 88% Remains on norepi On empiric abx On increased dosing IV steroids Renal function slightly worse A/P COVID ARDS Keep sedation for goal RASS -3; Trying to decrease propofol due to hypotension Continue mechanical ventilation; Compliance low 30s; Plateaus mid 20s; Increase PEEP to hopefully wean FiO2 for goal sats 88 Keep norepi; Hold BB/AceI Monitor renal function; Would like to diurese Continue IV steroids - increased dosing, follow inflammatory markers Continue Azith/Ceft; Monitor WBC Enteral nutrition indicated Glycemic control in place LMWH therapeutic dosing 60 minutes critical care time spent evaluating patient, reviewing EMR, and discussing with staff via 2 way audiovisual technology. JEFFY ESPINOZA MD Sep 15, 2020 13:09
--- NOTE | 2020-09-15 13:13 | DIREP ---
PROCEDURE:CHEST 1 VIEW COMPARISON:[facility], CR, XRAY CHEST SINGLE VW, 09/14/2020, 07:19 AM. INDICATIONS:intuabated FINDINGS: LUNGS/PLEURA:Interval decrease in density of the opacities in bilateral hemithoraces most prominent in the periphery bilaterally. No new consolidation or focal airspace opacity. There is no sizable pleural effusion. No pneumothorax. VASCULATURE:No pulmonary vascular congestion. CARDIAC:The heart is not significantly enlarged. MEDIASTINUM:Mediastinal contours appear within acceptable limits. BONES:No acute abnormality. OTHER:Endotracheal tube terminates approximately 6 broad the saurabh. Enteric tube is coiled in the stomach with tip and side hole projecting over the distal stomach. Possible kink in the catheter. CONCLUSION: 1. Interval improvement in multifocal infectious or inflammatory pneumonitis with decreased density of the opacities in bilateral hemithoraces. 2. Support apparatus as above. Correlate for enteric tube functioning. Dictated by: Rowdy Gold M.D. on 09/15/2020 at 01:08 PM
--- NOTE | 2020-09-15 14:28 | PRM.PN ---
Subjective Subjective Date: Sep 15, 2020 Time: 14:27 Subjective no acute events overnight well sedated - no episodes of aggression VTE VTE Risk Total Score: 2 VTE Risk Score VTE Risk: Score 0-1 = Low Risk (Aggressive mobilization; early ambulation; no VTE prophylaxis required) Score 2: Moderate Risk (Intermittent/Pneumatic Compression Device OR Lovenox/Heparin/Coumadin) Score 3-4: High Risk (Intermittent/Pneumatic Compression Device AND Lovenox/Heparin/Coumadin) Score > or =5: Highest Risk (Intermittent/Pneumatic Compression Device AND Lovenox/Heparin/Coumadin) Antico:Hep/LMWH/Coum/Xarelto: Yes Review of Systems Constitutional: Other (non verbal sedated and intubated ) Allergies: Coded Allergies: No Known Allergies (Unverified , 09/03/20) Scheduled Lisinopril (Lisinopril), 1 TAB PO BID, (Reported) Metformin Hcl (Metformin Hcl), 1,000 MG PO BID, (Reported) Objective Vitals and I/O Vital Sign - Last 24 Hours 09/15/20 09/15/20 09/15/20 09/15/20 07:15 07:30 07:30 07:45 Temp 99.0 99.0 Pulse 66 70 69 Resp 25 25 B/P (MAP) 120/61 (80) 111/50 (70) 119/53 (75) Pulse Ox 99 98 98 O2 Delivery Mechanical Ventilator O2 Flow Rate 100.00 FiO2 100 09/15/20 09/15/20 09/15/20 09/15/20 08:00 08:10 08:10 08:10 Temp 99.0 Pulse 69 74 74 74 Resp 25 25 25 25 B/P (MAP) 102/57 (72) 113/51 (71) Pulse Ox 98 98 98 98 O2 Delivery Mechanical Ventilator FiO2 100 100 09/15/20 09/15/20 09/15/20 09/15/20 08:15 08:30 08:45 09:00 Temp 99.0 99.0 99.0 99.0 Pulse 75 79 75 70 Resp 26 25 25 25 B/P (MAP) 107/50 (69) 106/50 (68) 113/51 (71) 106/55 (72) 113/52 (72) Pulse Ox 99 98 99 98 1/16/09/15/20 09/15/20 09/15/20 09:15 09:30 09:45 10:00 Temp 99.0 99.0 99.0 99.0 Pulse 68 67 69 67 Resp 25 25 25 25 B/P (MAP) 116/52 (73) 117/50 (72) 114/48 (70) 101/54 (70) 118/50 (72) Pulse Ox 98 98 98 98 09/15/20 09/15/20 09/15/20 09/15/20 10:15 10:30 10:45 11:00 Temp 99.0 99.0 99.0 99.0 Pulse 67 64 62 63 Resp 25 25 25 25 B/P (MAP) 117/50 (72) 125/52 (76) 126/52 (76) 103/55 (71) 120/50 (73) Pulse Ox 98 99 99 99 09/15/20 09/15/20 09/15/20 09/15/20 11:15 11:30 11:30 11:45 Temp 99.0 98.8 98.8 Pulse 62 61 62 62 Resp 25 26 25 65 B/P (MAP) 120/50 (73) 119/49 (72) 126/53 (77) Pulse Ox 99 99 98 99 FiO2 100 09/15/20 09/15/20 09/15/20 09/15/20 12:00 12:00 12:00 12:15 Temp 98.6 98.6 98.4 Pulse 60 60 80 58 Resp 9 9 25 25 B/P (MAP) 108/59 (75) 108/59 (75) 125/52 (76) 124/52 (76) 124/52 (76) Pulse Ox 99 99 100 99 FiO2 100 09/15/20 09/15/20 09/15/20 09/15/20 12:30 12:45 13:00 13:00 Temp 98.2 98.2 Pulse 67 76 64 74 Resp 25 25 25 B/P (MAP) 108/44 (65) 116/46 (69) Pulse Ox 98 99 97 98 FiO2 100 Intake and Output 09/15/20 07:00 Intake Total 3691.99 ml Output Total 1000 ml Balance 2691.99 ml General: Other (sedated and intubated ) HEENT: Mucous membr. moist/pink Neck: No JVD Lungs: Clear to auscultation, Normal air movement Heart: Regular rate ( ), Normal S1, Normal S2, No murmurs Abdomen: Normal bowel sounds, Soft, No tenderness Extremities: No edema, Normal pulses, No tenderness/swelling Skin: No significant lesion All Results(Lab/Rad) Laboratory Tests Test 09/03/20 21:02 09/04/20 04:47 09/04/20 05:59 09/04/20 07:15 Bedside Glucose 164 120 123 White Blood Count 8.1 10^3/uL Red Blood Count 4.89 10^6/uL Hemoglobin 14.2 g/dL Hematocrit 40.7 % Mean Corpuscular Volume 83.2 fL Mean Corpuscular Hemoglobin 29.0 pg Mean Corpuscular Hemoglobin Concent 34.9 g/dL Red Cell Distribution Width 12.0 % Platelet Count 185 10^3/uL Mean Platelet Volume 9.6 fL Neutrophils (%) (Auto) 83.5 % Lymphocytes (%) (Auto) 9.7 % Monocytes (%) (Auto) 6.0 % Neutrophils # (Auto) 6.8 10^3/uL Lymphocytes # (Auto) 0.79 10^3/uL1 Monocytes # (Auto) 0.5 10^3/uL Absolute Immature Granulocyte (auto 0.05 10^3 u/L Absolute Eosinophils (auto) 0.0 10^3/uL Immature Granulocytes % 0.60 % Eosinophils % 0.0 % Basophils % 0.2 % Basophils # 0.0 10^3/uL Sodium Level 132 mmol/L Potassium Level 3.6 mmol/L Chloride Level 97.0 mmol/L Carbon Dioxide Level 26.0 mmol/L Anion Gap 12.6 Blood Urea Nitrogen 21 mg/dL Creatinine 1.18 mg/dL Estimated GFR () 75.2 Est GFR (CKD-EPI)(Non-Afr Moldovan) 62.1 BUN/Creatinine Ratio 17.0 Glucose Level 118 mg/dL Hemoglobin A1c 8.0 % Calcium Level 8.3 mg/dL Total Bilirubin 0.7 mg/dL Aspartate Amino Transf (AST/SGOT) 55 U/L Alanine Aminotransferase (ALT/SGPT) 37 U/L Alkaline Phosphatase 40 U/L Total Protein 6.5 g/dL Albumin 2.3 g/dL Globulin 4.2 Albumin/Globulin Ratio 0.547 Triglycerides Level 65 mg/dL Cholesterol Level 76 mg/dL LDL Cholesterol, Calculated 26.0 VLDL Cholesterol, Calculated 13.0 HDL Cholesterol 37 mg/dL Cholesterol Ratio (LDL/HDL) 0.7 Cholesterol/HDL Ratio [id number] Test 09/04/20 11:37 09/04/20 12:22 09/04/20 16:36 Bedside Glucose 159 131 D-Dimer 1.85 mg/L Troponin I < 0.02 ng/mL Pro-B-Type Natriuretic Peptide 97 pg/mL Current Medications Medications (Trade) Dose Ordered Sig/Adrianna Route PRN Reason Start Time Stop Time Status Last Admin Dose Admin Acetaminophen (Tylenol) 325 mg Q4H PRN PO PAIN 1 - 3 09/03/20 19:00 10/03/20 18:59 Morphine Sulfate (Morphine Sulfate) 2 mg Q4H PRN IV PAIN 4 - 6 09/03/20 19:00 09/04/20 19:28 DC Insulin Human Lispro (Humalog) 0-140 0 Units 141-200... ACHS SQ 09/03/20 21:00 10/03/20 20:59 09/04/20 11:30 Dextrose 1,000 ml @ 100 mls/hr Q10H PRN IV HYPOGLYCEMIA 09/03/20 19:00 10/03/20 18:59 Dextrose (Dextrose 50%-Water Syringe) 25 ml STAT PRN IV HYPOGLYCEMIA 09/03/20 19:00 10/03/20 18:59 Glucagon (Glucagen) 1 mg STAT STAT IV 09/03/20 18:44 09/03/20 18:56 DC Heparin Sodium (Porcine) (Heparin) 5,000 unit Q8HR SQ 09/03/20 22:00 10/03/20 21:59 09/04/20 14:00 Lisinopril (Zestril) 20 mg BID PO 09/03/20 21:00 10/03/20 20:59 09/04/20 08:22 Azithromycin 500 mg/Sodium Chloride 250 ml @ 175 mls/hr Q24HRS IV 09/03/20 20:30 09/04/20 08:15 DC 09/03/20 21:11 Ceftriaxone Sodium 1000 mg/ Sodium Chloride 100 ml @ 100 mls/hr Q24HRS IV 09/03/20 19:30 09/04/20 08:15 DC 09/03/20 19:39 Sodium Chloride 1,000 ml @ 75 mls/hr [id number] IV 09/03/20 20:00 10/03/20 19:59 09/04/20 09:20 Ceftriaxone Sodium (Rocephin) 1,000 mg STK-MED ONCE .ROUTE 09/03/20 19:35 09/03/20 19:35 DC Sodium Chloride 100 ml @ ud STK-MED ONCE IV 09/03/20 19:35 09/03/20 19:36 DC Zinc Sulfate (Zinc Sulfate) 220 mg DAILY PO 09/04/20 09:00 10/04/20 08:59 09/04/20 08:22 Ascorbic Acid (Vitamin C) 500 mg BID PO 09/04/20 09:00 10/04/20 08:59 09/04/20 08:22 Morphine Sulfate (Morphine Sulfate) 2 mg Q4H PRN IV PAIN 4 - 6 09/04/20 19:28 10/03/20 18:59 Course Sepsis Screening Results: Posi: POSITIVE++ Sepsis Qualifier/Stage: SEVERE SEPSIS RISK DATE SEEN BY PHYSICIAN: Sep 11, 2020 TIME SEEN BY PROVIDER: 13:20 Vitals & review Data Vital Sign - Last 24 Hours 09/11/20 09/11/20 09/11/20 09/11/20 07:00 07:00 07:30 08:00 Temp 98.0 Pulse 62 67 Resp 28 27 B/P (MAP) 160/83 (108) 150/75 (100) Pulse Ox 96 91 O2 Delivery Non-Rebreather O2 Flow Rate 15.00 09/11/20 09/11/20 09/11/20 09/11/20 08:25 08:40 09:00 09:00 Pulse 65 87 81 Resp 22 19 B/P (MAP) 149/72 149/86 Pulse Ox 93 94 O2 Delivery Non-Rebreather O2 Flow Rate 15.00 FiO2 100 09/11/20 09/11/20 09/11/20 09/11/20 09:00 10:00 11:00 12:00 Pulse 67 74 68 Resp 25 30 35 B/P (MAP) 149/72 (97) 128/69 (88) 134/65 (88) Pulse Ox 93 88 91 O2 Delivery Non-Rebreather O2 Flow Rate 15.00 Intake and Output 09/11/20 07:00 Intake Total 335 ml Output Total 670 ml Balance -335 ml Laboratory Tests Test 09/09/20 16:50 09/09/20 19:54 09/10/20 04:26 09/10/20 04:54 Bedside Glucose 192 219 93 White Blood Count 11.8 10^3/uL Red Blood Count 4.77 10^6/uL Hemoglobin 13.8 g/dL Hematocrit 39.8 % Mean Corpuscular Volume 83.4 fL Mean Corpuscular Hemoglobin 28.9 pg Mean Corpuscular Hemoglobin Concent 34.7 g/dL Red Cell Distribution Width 12.3 % Platelet Count 361 10^3/uL Mean Platelet Volume 9.2 fL Neutrophils (%) (Auto) 84.0 % Lymphocytes (%) (Auto) 9.0 % Monocytes (%) (Auto) 4.8 % Neutrophils # (Auto) 9.9 10^3/uL Lymphocytes # (Auto) 1.06 10^3/uL1 Monocytes # (Auto) 0.6 10^3/uL Absolute Immature Granulocyte (auto 0.23 10^3 u/L Absolute Eosinophils (auto) 0.0 10^3/uL Immature Granulocytes % 2.00 % Eosinophils % 0.1 % Basophils % 0.1 % Basophils # 0.0 10^3/uL D-Dimer 8.09 mg/L Sodium Level 140 mmol/L Potassium Level 3.7 mmol/L Chloride Level 106.0 mmol/L Carbon Dioxide Level 27.2 mmol/L Anion Gap 10.5 Blood Urea Nitrogen 19 mg/dL Creatinine 0.96 mg/dL Estimated GFR () 95.4 Est GFR (CKD-EPI)(Non-Afr Moldovan) 78.9 BUN/Creatinine Ratio 19.0 Glucose Level 100 mg/dL Calcium Level 7.9 mg/dL Phosphorus Level 2.4 mg/dL Magnesium Level 1.8 mg/dL Ferritin 1073 ng/mL Total Bilirubin 0.7 mg/dL Aspartate Amino Transf (AST/SGOT) 27 U/L Alanine Aminotransferase (ALT/SGPT) 29 U/L Alkaline Phosphatase 58 U/L Lactate Dehydrogenase 295 U/L Total Creatine Kinase 41 U/L C-Reactive Protein 3.25 mg/dL Total Protein 5.7 g/dL Albumin 2.0 g/dL Globulin 3.7 Albumin/Globulin Ratio 0.540 Procalcitonin 0.10 ng/mL Test 09/10/20 07:10 09/10/20 11:33 09/10/20 16:46 09/10/20 19:51 Bedside Glucose 134 173 178 169 Test 09/11/20 01:56 09/11/20 02:03 09/11/20 05:13 09/11/20 05:14 Bedside Glucose 159 145 Blood Gas Sample Site LB Blood Gas pH 7.398 Blood Gas PCO2 31.4 mmHg Blood Gas PO2 54.5 mmHg Blood Gas HCO3 18.9 mmol/L Blood Gas Base Excess -4.8 mmol/L Abdi Test POSITIVE Arterial Blood Oxygen Saturation 87.1 % Deoxyhemoglobin 12.9 % Carboxyhemoglobin 0.3 % Methemoglobin 0.0 % Total Hemoglobin 13.4 % Total Oxygen Concentration 16.3 % Blood Gas Temperature 37 Oxygen Delivery Method (LAB) NON-REBREATHER MASK FiO2 100 % Total Carbon Dioxide 19.9 mmol/L White Blood Count 11.5 10^3/uL Red Blood Count 4.66 10^6/uL Hemoglobin 13.4 g/dL Hematocrit 39.1 % Mean Corpuscular Volume 83.9 fL Mean Corpuscular Hemoglobin 28.8 pg Mean Corpuscular Hemoglobin Concent 34.3 g/dL Red Cell Distribution Width 12.2 % Platelet Count 296 10^3/uL Mean Platelet Volume 9.2 fL Neutrophils (%) (Auto) 87.0 % Lymphocytes (%) (Auto) 5.9 % Monocytes (%) (Auto) 5.0 % Neutrophils # (Auto) 10.0 10^3/uL Lymphocytes # (Auto) 0.68 10^3/uL1 Monocytes # (Auto) 0.6 10^3/uL Absolute Immature Granulocyte (auto 0.23 10^3 u/L Absolute Eosinophils (auto) 0.0 10^3/uL Immature Granulocytes % 2.00 % Eosinophils % 0.0 % Basophils % 0.1 % Basophils # 0.0 10^3/uL Sodium Level 139 mmol/L Potassium Level 3.9 mmol/L Chloride Level 106.0 mmol/L Carbon Dioxide Level 23.2 mmol/L Anion Gap 13.7 Blood Urea Nitrogen 22 mg/dL Creatinine 0.88 mg/dL Estimated GFR () 105.5 Est GFR (CKD-EPI)(Non-Afr Moldovan) 87.2 BUN/Creatinine Ratio 25.0 Glucose Level 151 mg/dL Calcium Level 8.3 mg/dL Phosphorus Level 3.1 mg/dL Magnesium Level 2.3 mg/dL Total Bilirubin 0.7 mg/dL Aspartate Amino Transf (AST/SGOT) 27 U/L Alanine Aminotransferase (ALT/SGPT) 23 U/L Alkaline Phosphatase 71 U/L Total Protein 5.7 g/dL Albumin 2.0 g/dL Globulin 3.7 Albumin/Globulin Ratio 0.540 Test 09/11/20 05:41 09/11/20 07:35 09/11/20 07:50 09/11/20 11:42 Blood Gas Sample Site RT RADIAL ARTERY RR Blood Gas pH 7.405 7.398 Blood Gas PCO2 35.2 mmHg 36.1 mmHg Blood Gas PO2 53.5 mmHg 52.5 mmHg Blood Gas HCO3 21.6 mmol/L 21.8 mmol/L Blood Gas Base Excess -2.5 mmol/L -2.5 mmol/L Abdi Test POSITIVE POSITIVE Arterial Blood Oxygen Saturation 87.9 % 86.0 % Deoxyhemoglobin 12.1 % 13.9 % Carboxyhemoglobin 0 % 0.6 % Methemoglobin 0.1 % 0.3 % Total Hemoglobin 14.0 % 13.9 % Total Oxygen Concentration 17.3 % 16.6 % Blood Gas Temperature 37 37 Oxygen Delivery Method (LAB) NON-REBREATHER MASK NON-REBREATHER MASK FiO2 100 % 100 % Total Carbon Dioxide 22.6 mmol/L 22.9 mmol/L Bedside Glucose 133 185 Current Medications Medications (Trade) Dose Ordered Sig/Adrianna PRN Reason Start Time Stop Time Status Last Admin Enoxaparin Sodium (Lovenox) 80 mg BID 09/09/20 19:00 10/04/20 20:29 09/11/20 09:00 Lorazepam (Ativan) 1 mg Q4HR PRN ANXIETY 09/11/20 00:30 10/11/20 00:29 09/11/20 09:00 Metoprolol Tartrate (Lopresser) 25 mg BID 09/09/20 21:00 10/09/20 20:59 09/11/20 09:00 Remdesivir 100 mg/ Sodium Chloride 120 ml @ 111.111 mls/hr Q24HRS 09/08/20 19:00 10/08/20 18:59 09/10/20 18:00 LEVEL 1 SEPSIS INFECTION CRITE: ABX Therapy, Cough/Shortness of Breath, Flu- Pneumonia LEVEL 2-SIRS (LIST ALL THAT AP: RR>20/min, [id number] Cardiovascular Evidence: Not Assessed or None Hematologic Evidence: None/Not assessed Hepatic Evidence: None/Not assessed Metabolic Evidence: None/Not assessed Neurological Evidence: Altered Mental Status Respiratory Evidence: Acute Resp failure, Need for O2 to keep>90%, O2 SAT<90room air Renal Evidence: None/Not assessed O2 Sat by Pulse Oximetry: 98 Oxygen Flow Rate: 100.00 Assessment/Plan Assessment/Plan Assessment/Plan A 64 year old with Covid pneumonia and encephalopathy on antibiotic and antiviral and steroid protocol managing respiratory failure with mechanical ventilation Plan ACUTE RESPIRATORY FAILURE WITH HYPOXIA - NIPPV - chest Xray - shows mild improvement COVID PNEUMONIA - continue steroid regimen - continue anecdotal medications - serial acute phase reactants - didmier marty - procalcitonin check tomorrow - on antibiotic CAP regimen - sputum with yeast with confirmation bending HYPERTENSION - steady with pressors DIABETES MELLITUS - lantus added BID - entereal feeding ongoing - continue sliding scale AZOTEMIA - ON maintenance fluids LEUKOCYTOSIS - steriod induced SALOME WATERS MD Sep 15, 2020 14:28
[2020-09-15] MEDS: LANTUS SQ SCH ×2 (14:30→20:38)
[2020-09-15] MEDS: ROCEPHIN 1,000 MG in NS 100ML 100 ML IV SCH (15:00)
[2020-09-15] MEDS: ZITHROMAX 500 MG in NS 250ML 250 ML IV SCH (16:30)
[2020-09-15] MEDS: SUBLIMAZE IV SCH (18:32)
[2020-09-15] MEDS: NS IV SCH (18:32)
[2020-09-16] VITALS (83 sets, daily range): BP systolic 94–154; BP diastolic 44–69
[2020-09-16] MEDS: NS 1000ML 1,000 ML IV SCH ×2 (00:18→17:28)
[2020-09-16] MEDS: VENTOLIN HFA IH SCH ×6 (00:25→20:50)
[2020-09-16] MEDS: DIPRIVAN IV SCH ×3 (05:49→17:38)
[2020-09-16] MEDS: HUMALOG SQ SCH ×4 (05:50→17:25)
[2020-09-16] MEDS: SOLU-MEDROL IV SCH ×3 (05:50→22:00)
[2020-09-16 05:58] LABS: BASOPHIL % 0.1 % (0.0-0.2); LYMPHOCYTES # 0.28 10^3/uL1 (1.0-4.8); LYMPHOCYTES % 1.8 % (24.0-44.0); MONOCYTES # 0.5 10^3/uL (0.3-0.8); NEUTROPHIL # 14.3 10^3/uL (1.8-7.7); PLATELET COUNT 234 10^3/uL (150-400); RED CELL DISTRIBUTION WIDTH 13.1 % (11.5-14.5)
[2020-09-16 06:05] LABS: ABG PCO2 46.1 mmHg (35.0-45.0); BE(B) -3.7 mmol/L (-2.0-2.0); HCO3act 22.7 mmol/L (22.0-26.0); pO2 61.6 mmHg (80.0-100.0)
[2020-09-16 06:36] LABS: CARBON DIOXIDE 24.8 mmol/L (20.0-32)
[2020-09-16 06:36] LABS: LYMPHOCYTE 1 % (25-36); MONOCYTE 2 % (3-9); SEGMENTED NEUTROPHILS 97 % (31-76)
[2020-09-16] MEDS: LANTUS SQ SCH ×2 (08:28→21:00)
[2020-09-16] MEDS: VITAMIN C PO SCH ×2 (09:00→20:02)
[2020-09-16] MEDS: ZINC SULFATE PO SCH ×2 (09:00→20:02)
[2020-09-16] MEDS: LOVENOX SQ SCH ×2 (09:00→20:02)
[2020-09-16] MEDS: COLACE PO SCH ×2 (09:00→20:02)
[2020-09-16] MEDS ORDERED: NORCURON IV ONE (10:00)
--- NOTE | 2020-09-16 12:02 | DIREP ---
PROCEDURE:CHEST 1 VIEW COMPARISON:None. INDICATIONS:POST PICC LINE PLACEMENT FINDINGS: LUNGS/PLEURA:No change in bilateral airspace opacities. VASCULATURE:Normal. Unremarkable pulmonary vasculature. CARDIAC:Normal. No cardiac silhouette abnormality or cardiomegaly. MEDIASTINUM:ETT 2 cm above the saurabh. NG tube coiling in the gastric fundus with tip in the gastric antrum. Right PICC line in place with tip in the region the superior vena cava. BONES:Normal. No fracture or visible bony lesion. OTHER:Monitor leads in place, CONCLUSION: 1. No change in bilateral airspace opacities. 2. Tubes and lines in place as described above. Dictated by: Joseph Alba M.D. on 09/16/2020 at 11:59 AM
--- NOTE | 2020-09-16 12:10 | PRM.PN ---
Subjective Subjective Date: Sep 16, 2020 Time: 12:10 Subjective no acute events overnight line access per nursing staff VTE VTE Risk Total Score: 2 VTE Risk Score VTE Risk: Score 0-1 = Low Risk (Aggressive mobilization; early ambulation; no VTE prophylaxis required) Score 2: Moderate Risk (Intermittent/Pneumatic Compression Device OR Lovenox/Heparin/Coumadin) Score 3-4: High Risk (Intermittent/Pneumatic Compression Device AND Lovenox/Heparin/Coumadin) Score > or =5: Highest Risk (Intermittent/Pneumatic Compression Device AND Lovenox/Heparin/Coumadin) Antico:Hep/LMWH/Coum/Xarelto: Yes Review of Systems Constitutional: Other (non verbal sedated and intubated ) Allergies: Coded Allergies: No Known Allergies (Unverified , 09/03/20) Scheduled Lisinopril (Lisinopril), 1 TAB PO BID, (Reported) Metformin Hcl (Metformin Hcl), 1,000 MG PO BID, (Reported) Objective Vitals and I/O Vital Sign - Last 24 Hours 09/16/20 09/16/20 09/16/20 09/16/20 07:00 07:15 07:30 07:30 Temp 98.2 98.1 97.9 Pulse 58 58 58 59 Resp 25 B/P (MAP) 111/60 (77) 123/56 (78) 129/58 (81) 119/54 (75) Pulse Ox 99 99 100 99 FiO2 90 09/16/20 09/16/20 09/16/20 09/16/20 07:45 08:00 08:00 08:01 Temp 97.9 97.9 Pulse 54 55 56 Resp 25 25 25 B/P (MAP) 131/59 (83) 123/67 (85) 131/59 (83) Pulse Ox 99 98 98 O2 Delivery Mechanical Ventilator Mechanical Ventilator O2 Flow Rate 100.00 FiO2 90 09/16/20 09/16/20 09/16/20 09/16/20 08:01 08:09 08:15 08:30 Temp 97.9 97.9 Pulse 74 55 53 55 Resp 25 25 25 25 B/P (MAP) 130/57 (81) 130/58 (82) Pulse Ox 98 98 98 98 FiO2 90 09/16/20 09/16/20 08:45 10:48 Temp 97.7 Pulse 54 62 Resp 25 25 B/P (MAP) 129/57 (81) Pulse Ox 98 98 FiO2 90 General: Other (sedated and intubated ) HEENT: Mucous membr. moist/pink Neck: No JVD Lungs: Clear to auscultation, Normal air movement Heart: Regular rate ( ), Normal S1, Normal S2, No murmurs Abdomen: Normal bowel sounds, Soft, No tenderness, Other (franz and nasogastric tube in place ) Extremities: No edema, Normal pulses, No tenderness/swelling Skin: No significant lesion All Results(Lab/Rad) Laboratory Tests Test 09/03/20 21:02 09/04/20 04:47 09/04/20 05:59 09/04/20 07:15 Bedside Glucose 164 120 123 White Blood Count 8.1 10^3/uL Red Blood Count 4.89 10^6/uL Hemoglobin 14.2 g/dL Hematocrit 40.7 % Mean Corpuscular Volume 83.2 fL Mean Corpuscular Hemoglobin 29.0 pg Mean Corpuscular Hemoglobin Concent 34.9 g/dL Red Cell Distribution Width 12.0 % Platelet Count 185 10^3/uL Mean Platelet Volume 9.6 fL Neutrophils (%) (Auto) 83.5 % Lymphocytes (%) (Auto) 9.7 % Monocytes (%) (Auto) 6.0 % Neutrophils # (Auto) 6.8 10^3/uL Lymphocytes # (Auto) 0.79 10^3/uL1 Monocytes # (Auto) 0.5 10^3/uL Absolute Immature Granulocyte (auto 0.05 10^3 u/L Absolute Eosinophils (auto) 0.0 10^3/uL Immature Granulocytes % 0.60 % Eosinophils % 0.0 % Basophils % 0.2 % Basophils # 0.0 10^3/uL Sodium Level 132 mmol/L Potassium Level 3.6 mmol/L Chloride Level 97.0 mmol/L Carbon Dioxide Level 26.0 mmol/L Anion Gap 12.6 Blood Urea Nitrogen 21 mg/dL Creatinine 1.18 mg/dL Estimated GFR () 75.2 Est GFR (CKD-EPI)(Non-Afr Citizen Of [place]) 62.1 BUN/Creatinine Ratio 17.0 Glucose Level 118 mg/dL Hemoglobin A1c 8.0 % Calcium Level 8.3 mg/dL Total Bilirubin 0.7 mg/dL Aspartate Amino Transf (AST/SGOT) 55 U/L Alanine Aminotransferase (ALT/SGPT) 37 U/L Alkaline Phosphatase 40 U/L Total Protein 6.5 g/dL Albumin 2.3 g/dL Globulin 4.2 Albumin/Globulin Ratio 0.547 Triglycerides Level 65 mg/dL Cholesterol Level 76 mg/dL LDL Cholesterol, Calculated 26.0 VLDL Cholesterol, Calculated 13.0 HDL Cholesterol 37 mg/dL Cholesterol Ratio (LDL/HDL) 0.7 Cholesterol/HDL Ratio [id number] Test 09/04/20 11:37 09/04/20 12:22 09/04/20 16:36 Bedside Glucose 159 131 D-Dimer 1.85 mg/L Troponin I < 0.02 ng/mL Pro-B-Type Natriuretic Peptide 97 pg/mL Current Medications Medications (Trade) Dose Ordered Sig/Adrianna Route PRN Reason Start Time Stop Time Status Last Admin Dose Admin Acetaminophen (Tylenol) 325 mg Q4H PRN PO PAIN 1 - 3 09/03/20 19:00 10/03/20 18:59 Morphine Sulfate (Morphine Sulfate) 2 mg Q4H PRN IV PAIN 4 - 6 09/03/20 19:00 09/04/20 19:28 DC Insulin Human Lispro (Humalog) 0-140 0 Units 141-200... ACHS SQ 09/03/20 21:00 10/03/20 20:59 09/04/20 11:30 Dextrose 1,000 ml @ 100 mls/hr Q10H PRN IV HYPOGLYCEMIA 09/03/20 19:00 10/03/20 18:59 Dextrose (Dextrose 50%-Water Syringe) 25 ml STAT PRN IV HYPOGLYCEMIA 09/03/20 19:00 10/03/20 18:59 Glucagon (Glucagen) 1 mg STAT STAT IV 09/03/20 18:44 09/03/20 18:56 DC Heparin Sodium (Porcine) (Heparin) 5,000 unit Q8HR SQ 09/03/20 22:00 10/03/20 21:59 09/04/20 14:00 Lisinopril (Zestril) 20 mg BID PO 09/03/20 21:00 10/03/20 20:59 09/04/20 08:22 Azithromycin 500 mg/Sodium Chloride 250 ml @ 175 mls/hr Q24HRS IV 09/03/20 20:30 09/04/20 08:15 DC 09/03/20 21:11 Ceftriaxone Sodium 1000 mg/ Sodium Chloride 100 ml @ 100 mls/hr Q24HRS IV 09/03/20 19:30 09/04/20 08:15 DC 09/03/20 19:39 Sodium Chloride 1,000 ml @ 75 mls/hr [id number] IV 09/03/20 20:00 10/03/20 19:59 09/04/20 09:20 Ceftriaxone Sodium (Rocephin) 1,000 mg STK-MED ONCE .ROUTE 09/03/20 19:35 09/03/20 19:35 DC Sodium Chloride 100 ml @ ud STK-MED ONCE IV 09/03/20 19:35 09/03/20 19:36 DC Zinc Sulfate (Zinc Sulfate) 220 mg DAILY PO 09/04/20 09:00 10/04/20 08:59 09/04/20 08:22 Ascorbic Acid (Vitamin C) 500 mg BID PO 09/04/20 09:00 10/04/20 08:59 09/04/20 08:22 Morphine Sulfate (Morphine Sulfate) 2 mg Q4H PRN IV PAIN 4 - 6 09/04/20 19:28 10/03/20 18:59 Course Sepsis Screening Results: Posi: POSITIVE++ Sepsis Qualifier/Stage: SEVERE SEPSIS RISK DATE SEEN BY PHYSICIAN: Sep 11, 2020 TIME SEEN BY PROVIDER: 13:20 Vitals & review Data Vital Sign - Last 24 Hours 09/11/20 09/11/20 09/11/20 09/11/20 07:00 07:00 07:30 08:00 Temp 98.0 Pulse 62 67 Resp 28 27 B/P (MAP) 160/83 (108) 150/75 (100) Pulse Ox 96 91 O2 Delivery Non-Rebreather O2 Flow Rate 15.00 09/11/20 09/11/20 09/11/20 09/11/20 08:25 08:40 09:00 09:00 Pulse 65 87 81 Resp 22 19 B/P (MAP) 149/72 149/86 Pulse Ox 93 94 O2 Delivery Non-Rebreather O2 Flow Rate 15.00 FiO2 100 09/11/20 09/11/20 09/11/20 09/11/20 09:00 10:00 11:00 12:00 Pulse 67 74 68 Resp 25 30 35 B/P (MAP) 149/72 (97) 128/69 (88) 134/65 (88) Pulse Ox 93 88 91 O2 Delivery Non-Rebreather O2 Flow Rate 15.00 Intake and Output 09/11/20 07:00 Intake Total 335 ml Output Total 670 ml Balance -335 ml Laboratory Tests Test 09/09/20 16:50 09/09/20 19:54 09/10/20 04:26 09/10/20 04:54 Bedside Glucose 192 219 93 White Blood Count 11.8 10^3/uL Red Blood Count 4.77 10^6/uL Hemoglobin 13.8 g/dL Hematocrit 39.8 % Mean Corpuscular Volume 83.4 fL Mean Corpuscular Hemoglobin 28.9 pg Mean Corpuscular Hemoglobin Concent 34.7 g/dL Red Cell Distribution Width 12.3 % Platelet Count 361 10^3/uL Mean Platelet Volume 9.2 fL Neutrophils (%) (Auto) 84.0 % Lymphocytes (%) (Auto) 9.0 % Monocytes (%) (Auto) 4.8 % Neutrophils # (Auto) 9.9 10^3/uL Lymphocytes # (Auto) 1.06 10^3/uL1 Monocytes # (Auto) 0.6 10^3/uL Absolute Immature Granulocyte (auto 0.23 10^3 u/L Absolute Eosinophils (auto) 0.0 10^3/uL Immature Granulocytes % 2.00 % Eosinophils % 0.1 % Basophils % 0.1 % Basophils # 0.0 10^3/uL D-Dimer 8.09 mg/L Sodium Level 140 mmol/L Potassium Level 3.7 mmol/L Chloride Level 106.0 mmol/L Carbon Dioxide Level 27.2 mmol/L Anion Gap 10.5 Blood Urea Nitrogen 19 mg/dL Creatinine 0.96 mg/dL Estimated GFR () 95.4 Est GFR (CKD-EPI)(Non-Afr Citizen Of [place]) 78.9 BUN/Creatinine Ratio 19.0 Glucose Level 100 mg/dL Calcium Level 7.9 mg/dL Phosphorus Level 2.4 mg/dL Magnesium Level 1.8 mg/dL Ferritin 1073 ng/mL Total Bilirubin 0.7 mg/dL Aspartate Amino Transf (AST/SGOT) 27 U/L Alanine Aminotransferase (ALT/SGPT) 29 U/L Alkaline Phosphatase 58 U/L Lactate Dehydrogenase 295 U/L Total Creatine Kinase 41 U/L C-Reactive Protein 3.25 mg/dL Total Protein 5.7 g/dL Albumin 2.0 g/dL Globulin 3.7 Albumin/Globulin Ratio 0.540 Procalcitonin 0.10 ng/mL Test 09/10/20 07:10 09/10/20 11:33 09/10/20 16:46 09/10/20 19:51 Bedside Glucose 134 173 178 169 Test 09/11/20 01:56 09/11/20 02:03 09/11/20 05:13 09/11/20 05:14 Bedside Glucose 159 145 Blood Gas Sample Site LB Blood Gas pH 7.398 Blood Gas PCO2 31.4 mmHg Blood Gas PO2 54.5 mmHg Blood Gas HCO3 18.9 mmol/L Blood Gas Base Excess -4.8 mmol/L Abdi Test POSITIVE Arterial Blood Oxygen Saturation 87.1 % Deoxyhemoglobin 12.9 % Carboxyhemoglobin 0.3 % Methemoglobin 0.0 % Total Hemoglobin 13.4 % Total Oxygen Concentration 16.3 % Blood Gas Temperature 37 Oxygen Delivery Method (LAB) NON-REBREATHER MASK FiO2 100 % Total Carbon Dioxide 19.9 mmol/L White Blood Count 11.5 10^3/uL Red Blood Count 4.66 10^6/uL Hemoglobin 13.4 g/dL Hematocrit 39.1 % Mean Corpuscular Volume 83.9 fL Mean Corpuscular Hemoglobin 28.8 pg Mean Corpuscular Hemoglobin Concent 34.3 g/dL Red Cell Distribution Width 12.2 % Platelet Count 296 10^3/uL Mean Platelet Volume 9.2 fL Neutrophils (%) (Auto) 87.0 % Lymphocytes (%) (Auto) 5.9 % Monocytes (%) (Auto) 5.0 % Neutrophils # (Auto) 10.0 10^3/uL Lymphocytes # (Auto) 0.68 10^3/uL1 Monocytes # (Auto) 0.6 10^3/uL Absolute Immature Granulocyte (auto 0.23 10^3 u/L Absolute Eosinophils (auto) 0.0 10^3/uL Immature Granulocytes % 2.00 % Eosinophils % 0.0 % Basophils % 0.1 % Basophils # 0.0 10^3/uL Sodium Level 139 mmol/L Potassium Level 3.9 mmol/L Chloride Level 106.0 mmol/L Carbon Dioxide Level 23.2 mmol/L Anion Gap 13.7 Blood Urea Nitrogen 22 mg/dL Creatinine 0.88 mg/dL Estimated GFR () 105.5 Est GFR (CKD-EPI)(Non-Afr Citizen Of [place]) 87.2 BUN/Creatinine Ratio 25.0 Glucose Level 151 mg/dL Calcium Level 8.3 mg/dL Phosphorus Level 3.1 mg/dL Magnesium Level 2.3 mg/dL Total Bilirubin 0.7 mg/dL Aspartate Amino Transf (AST/SGOT) 27 U/L Alanine Aminotransferase (ALT/SGPT) 23 U/L Alkaline Phosphatase 71 U/L Total Protein 5.7 g/dL Albumin 2.0 g/dL Globulin 3.7 Albumin/Globulin Ratio 0.540 Test 09/11/20 05:41 09/11/20 07:35 09/11/20 07:50 09/11/20 11:42 Blood Gas Sample Site RT RADIAL ARTERY RR Blood Gas pH 7.405 7.398 Blood Gas PCO2 35.2 mmHg 36.1 mmHg Blood Gas PO2 53.5 mmHg 52.5 mmHg Blood Gas HCO3 21.6 mmol/L 21.8 mmol/L Blood Gas Base Excess -2.5 mmol/L -2.5 mmol/L Abdi Test POSITIVE POSITIVE Arterial Blood Oxygen Saturation 87.9 % 86.0 % Deoxyhemoglobin 12.1 % 13.9 % Carboxyhemoglobin 0 % 0.6 % Methemoglobin 0.1 % 0.3 % Total Hemoglobin 14.0 % 13.9 % Total Oxygen Concentration 17.3 % 16.6 % Blood Gas Temperature 37 37 Oxygen Delivery Method (LAB) NON-REBREATHER MASK NON-REBREATHER MASK FiO2 100 % 100 % Total Carbon Dioxide 22.6 mmol/L 22.9 mmol/L Bedside Glucose 133 185 Current Medications Medications (Trade) Dose Ordered Sig/Adrianna PRN Reason Start Time Stop Time Status Last Admin Enoxaparin Sodium (Lovenox) 80 mg BID 09/09/20 19:00 10/04/20 20:29 09/11/20 09:00 Lorazepam (Ativan) 1 mg Q4HR PRN ANXIETY 09/11/20 00:30 10/11/20 00:29 09/11/20 09:00 Metoprolol Tartrate (Lopresser) 25 mg BID 09/09/20 21:00 10/09/20 20:59 09/11/20 09:00 Remdesivir 100 mg/ Sodium Chloride 120 ml @ 111.111 mls/hr Q24HRS 09/08/20 19:00 10/08/20 18:59 09/10/20 18:00 LEVEL 1 SEPSIS INFECTION CRITE: ABX Therapy, Cough/Shortness of Breath, Flu- Pneumonia LEVEL 2-SIRS (LIST ALL THAT AP: RR>20/min, [id number] Cardiovascular Evidence: Not Assessed or None Hematologic Evidence: None/Not assessed Hepatic Evidence: None/Not assessed Metabolic Evidence: None/Not assessed Neurological Evidence: Altered Mental Status Respiratory Evidence: Acute Resp failure, Need for O2 to keep>90%, O2 SAT<90room air Renal Evidence: None/Not assessed O2 Sat by Pulse Oximetry: 98 Oxygen Flow Rate: 100.00 Assessment/Plan Assessment/Plan Assessment/Plan A 64 year old with COVID - 19 pneumonia with hypoxia ongoing mechanical ventilation Plan ACUTE RESPIRATORY FAILURE WITH HYPOXIA - NIPPV - chest Xray - shows mild improvement COVID PNEUMONIA - continue steroid regimen - continue anecdotal medications - serial acute phase reactants - ddimer - trending down - procalcitonin check tomorrow - on antibiotic CAP regimen day 3 - sputum with yeast with confirmation pending HYPERTENSION - steady with pressors DIABETES MELLITUS - lantus added BID- will increase - entereal feeding ongoing - continue sliding scale AZOTEMIA - ON maintenance fluids - added on Protonix LEUKOCYTOSIS - steriod induced Feeding - entereal and maintenance IVF Analgesia - PRN morphine Sedation - fentanyl and prop Thrombo - lovenox Head of bed - compliant Ulcer - protonix Glycemia - increase basal - Spontaneous breathing trial - not ready Bowels care - in place Indwelling franz - in place Deescalate antibiotics - currently on CAP therapy day 3 SALOME WATERS MD Sep 16, 2020 12:10
--- NOTE | 2020-09-16 14:00 | NUR ---
Notified Dr. Young patient heart rate bradycardia to 47 and maintains at 50-51 sinus. Will titirate sedation to rass -2. no new orders received.
[2020-09-16] MEDS: ROCEPHIN 1,000 MG in NS 100ML 100 ML IV SCH (14:36)
[2020-09-16] MEDS: ZITHROMAX 500 MG in NS 250ML 250 ML IV SCH (16:00)
--- NOTE | 2020-09-16 16:30 | TELE.CONS ---
Review of Systems Constitutional: Other (non verbal sedated and intubated ) Allergies: Coded Allergies: No Known Allergies (Unverified , 09/03/20) Scheduled Lisinopril (Lisinopril), 1 TAB PO BID, (Reported) Metformin Hcl (Metformin Hcl), 1,000 MG PO BID, (Reported) VITALS REVIEW VITALS Vital Sign - Last 24 Hours 09/16/20 09/16/20 09/16/20 09/16/20 07:00 07:15 07:30 07:30 Temp 98.2 98.1 97.9 Pulse 58 58 58 59 Resp 25 25 25 B/P (MAP) 111/60 (77) 123/56 (78) 129/58 (81) 119/54 (75) Pulse Ox 99 99 100 99 FiO2 90 09/16/20 09/16/20 09/16/20 09/16/20 07:45 08:00 08:00 08:01 Temp 97.9 97.9 Pulse 54 55 56 Resp 25 B/P (MAP) 131/59 (83) 123/67 (85) 131/59 (83) Pulse Ox 99 98 98 O2 Delivery Mechanical Ventilator Mechanical Ventilator O2 Flow Rate 100.00 FiO2 90 09/16/20 09/16/20 09/16/20 09/16/20 08:01 08:09 08:15 08:30 Temp 97.9 97.9 Pulse 74 55 53 55 Resp 25 25 B/P (MAP) 130/57 (81) 130/58 (82) Pulse Ox 98 98 98 98 FiO2 90 09/16/20 09/16/20 09/16/20 09/16/20 08:45 09:00 09:15 09:30 Temp 97.7 97.7 97.7 97.7 Pulse 54 54 55 55 Resp 25 25 25 25 B/P (MAP) 129/57 (81) 120/64 (82) 127/56 (79) 129/55 (79) 129/57 (81) Pulse Ox 98 98 98 99 09/16/20 09/16/20 09/16/20 09/16/20 09:45 10:00 10:15 10:30 Temp 97.7 97.7 97.9 97.9 Pulse 61 72 77 75 Resp 26 25 B/P (MAP) 110/50 (70) 98/57 (71) 113/53 (73) 110/52 (71) 106/51 (69) Pulse Ox 100 94 95 95 09/16/20 09/16/20 09/16/20 09/16/20 10:45 10:48 11:00 11:01 Temp 98.1 98.1 98.1 Pulse 65 62 62 62 Resp 25 25 20 25 B/P (MAP) 105/51 (69) 104/47 (66) 103/47 (65) Pulse Ox 96 98 99 99 FiO2 90 09/16/20 09/16/20 09/16/20 09/16/20 11:15 11:30 11:45 12:00 Temp 98.1 97.9 97.9 Pulse 60 57 Resp 25 25 25 25 B/P (MAP) 108/48 (68) 110/48 (68) 116/49 (71) Pulse Ox 99 100 99 99 FiO2 90 09/16/20 09/16/20 09/16/20 09/16/20 12:00 12:00 12:15 12:30 Temp 97.9 97.9 97.7 Pulse 51 Resp 25 26 25 B/P (MAP) 115/54 (74) 119/51 (73) 123/52 (75) 119/50 (73) Pulse Ox 99 99 99 O2 Delivery Mechanical Ventilator O2 Flow Rate 100.00 09/16/20 09/16/20 09/16/20 09/16/20 12:45 13:00 13:15 13:30 Temp 97.7 97.5 97.5 97.5 Pulse 50 47 51 48 Resp 25 25 25 25 B/P (MAP) 124/53 (76) 117/58 (77) 124/52 (76) 126/53 (77) 123/52 (75) Pulse Ox 98 98 97 97 09/16/20 09/16/20 09/16/20 09/16/20 13:41 13:45 14:00 14:14 Temp 97.5 97.5 Pulse 50 50 50 49 Resp 25 25 25 25 B/P (MAP) 127/53 (77) 122/56 (78) 127/53 (77) Pulse Ox 97 97 96 96 FiO2 90 09/16/20 09/16/20 09/16/20 09/16/20 14:15 14:30 14:45 15:00 Temp 97.5 97.5 97.5 97.5 Pulse 51 48 51 52 Resp 25 25 25 25 B/P (MAP) 128/54 (78) 130/55 (80) 124/53 (76) 112/54 (73) 126/54 (78) Pulse Ox 97 95 96 97 09/16/20 09/16/20 09/16/20 09/16/20 15:15 15:30 15:45 16:00 Temp 97.5 97.5 97.5 Pulse 50 50 50 50 Resp 25 25 25 25 B/P (MAP) 124/53 (76) 127/53 (77) 124/53 (76) Pulse Ox 97 98 98 99 FiO2 90 09/16/20 16:00 Temp 97.5 Pulse 52 Resp 25 B/P (MAP) 114/57 (76) 123/54 (77) Pulse Ox 98 VTE VTE Risk Total Score: 2 VTE Risk Score VTE Risk: Score 0-1 = Low Risk (Aggressive mobilization; early ambulation; no VTE prophylaxis required) Score 2: Moderate Risk (Intermittent/Pneumatic Compression Device OR Lovenox/Heparin/Coumadin) Score 3-4: High Risk (Intermittent/Pneumatic Compression Device AND Lovenox/Heparin/Coumadin) Score > or =5: Highest Risk (Intermittent/Pneumatic Compression Device AND Lovenox/Heparin/Coumadin) Antico:Hep/LMWH/Coum/Xarelto: Yes VTE VTE Present on Admission: No Currently receiving anticoagul: No VTE Risk Total Score: 2 Antico:Hep/LMWH/Coum/Xarelto: Yes Assessment/Plan Assessment/Plan Assessment/Plan ACUTE RESPIRATORY FAILURE WITH HYPOXIA ABG acceptable on ACVC RR 25 Vt 400 PEEP 10 FiO2 1.0 CXR 09/16 no change Not ready for spontaneous breathing trials or support reduction Continue current management COVID PNEUMONIA - continue steroids - on antibiotic CAP regimen Sinus bradycardia - with preserved BP, follow. Off vasopressors. To get PICC today per RN DVT prophylaxis: is on full dose anticoagulation;if no other indication consider reducing to lovenox 40 bid for improving d-dimer (1.67) Stress ulcer prophylaxis Glycemic control Enteral feedings 60 minutes critical care HIPAA compliant 2 way audio visual technology was used JEFFY ESPINOZA MD Sep 16, 2020 16:30
[2020-09-16] MEDS ORDERED: WATER ONE (16:52)
--- NOTE | 2020-09-16 17:27 | DIET.OP ---
Nutrition Asmt/Malnutrit 2-17 Actual Date of Review: Sep 16, 2020 Diagnosis: Covid 19, Acute Hypoxemic Respiratory Failure Pertinent Medical Hx/Surgical: HTN, HLD, T2DM Subjective Information: telehealth f/u- pt remains intubated and sedated. TF: Glucerna 1.5 165cc Q4h with 155cc water flush Q4. BG 222-278 mg/dl. Current Diet Order/Nutrition S: NPO Patient /S.O: Not Indicated Pertinent Meds Current Medications Medications (Trade) Dose Ordered Sig/Adrianna Route PRN Reason Start Time Stop Time Status Last Admin Dose Admin Acetaminophen (Tylenol) 325 mg Q4H PRN PO PAIN 1 - 3 09/03/20 19:00 09/05/20 19:26 DC Morphine Sulfate (Morphine Sulfate) 2 mg Q4H PRN IV PAIN 4 - 6 09/03/20 19:00 09/04/20 19:28 DC Insulin Human Lispro (Humalog) 0-140 0 Units 141-200... ACHS SQ 09/03/20 21:00 09/13/20 19:43 DC 09/13/20 17:28 Dextrose 1,000 ml @ 100 mls/hr Q10H PRN IV HYPOGLYCEMIA 09/03/20 19:00 10/03/20 18:59 Dextrose (Dextrose 50%-Water Syringe) 25 ml STAT PRN IV HYPOGLYCEMIA 09/03/20 19:00 10/03/20 18:59 Glucagon (Glucagen) 1 mg STAT STAT IV 09/03/20 18:44 09/03/20 18:56 DC Heparin Sodium (Porcine) (Heparin) 5,000 unit Q8HR SQ 09/03/20 22:00 09/04/20 20:10 DC 09/04/20 14:00 Lisinopril (Zestril) 20 mg BID PO 09/03/20 21:00 09/14/20 11:07 DC 09/12/20 21:00 Azithromycin 500 mg/Sodium Chloride 250 ml @ 175 mls/hr Q24HRS IV 09/03/20 20:30 09/04/20 08:15 DC 09/03/20 21:11 Ceftriaxone Sodium 1000 mg/ Sodium Chloride 100 ml @ 100 mls/hr Q24HRS IV 09/03/20 19:30 09/04/20 08:15 DC 09/03/20 19:39 Sodium Chloride 1,000 ml @ 75 mls/hr [id number] IV 09/03/20 20:00 09/11/20 10:16 DC 09/11/20 01:20 Ceftriaxone Sodium (Rocephin) 1,000 mg STK-MED ONCE .ROUTE 09/03/20 19:35 09/03/20 19:35 DC Sodium Chloride 100 ml @ ud STK-MED ONCE IV 09/03/20 19:35 09/03/20 19:36 DC Zinc Sulfate (Zinc Sulfate) 220 mg DAILY PO 09/04/20 09:00 09/05/20 00:13 DC 09/04/20 08:22 Ascorbic Acid (Vitamin C) 500 mg BID PO 09/04/20 09:00 09/05/20 00:13 DC 09/04/20 20:22 Morphine Sulfate (Morphine Sulfate) 2 mg Q4H PRN IV PAIN 4 - 6 09/04/20 19:28 10/03/20 18:59 Enoxaparin Sodium (Lovenox) 75 mg BID SQ 09/04/20 20:30 09/05/20 11:39 DC 09/05/20 08:20 Azithromycin (Zithromax) 500 mg OT ONCE PO 09/05/20 00:00 09/05/20 02:22 DC 09/05/20 00:27 Ceftriaxone Sodium 2000 mg/ Sodium Chloride 100 ml @ 100 mls/hr Q24HRS IV 09/05/20 00:00 09/09/20 18:46 DC 09/08/20 23:59 Azithromycin (Zithromax) 250 mg DAILY PO 09/05/20 19:00 09/09/20 18:59 DC 09/09/20 08:31 Ceftriaxone Sodium (Rocephin) 1,000 mg STK-MED ONCE .ROUTE 09/05/20 00:25 09/05/20 00:26 DC Sodium Chloride 100 ml @ ud STK-MED ONCE IV 09/05/20 00:26 09/05/20 00:26 DC Enoxaparin Sodium (Lovenox) 40 mg DAILY SQ 09/06/20 09:00 09/09/20 18:47 DC 09/09/20 08:31 Ascorbic Acid (Vitamin C) 1,000 mg BID PO 09/05/20 21:00 10/05/20 20:59 09/16/20 09:00 Zinc Sulfate (Zinc Sulfate) 220 mg BID PO 09/05/20 21:00 10/05/20 20:59 09/16/20 09:00 Albuterol Sulfate (Ventolin Hfa) 2 inh RTQ4 IH 09/05/20 13:00 10/05/20 12:59 09/16/20 13:41 Acetaminophen (Tylenol) 1,000 mg Q6H PRN PO PAIN 1 - 3 09/05/20 12:00 10/05/20 11:59 09/06/20 09:35 Enoxaparin Sodium (Lovenox) 40 mg STK-MED ONCE SQ 09/06/20 07:12 09/06/20 07:12 DC Remdesivir 200 mg/ Sodium Chloride 140 ml @ 120.69 mls/ hr OT STAT IV 09/07/20 18:45 09/07/20 19:54 DC 09/07/20 19:10 Remdesivir 100 mg/ Sodium Chloride 120 ml @ 111.111 mls/hr Q24HRS IV 09/08/20 19:00 09/13/20 07:12 DC 09/12/20 19:00 Potassium Chloride (Klor-Con 10) 40 meq OT PO 09/08/20 13:00 09/11/20 15:50 DC 09/09/20 04:56 Metoprolol Tartrate (Lopresser) 10 mg STAT STAT IVP 09/09/20 11:00 09/09/20 11:04 DC 09/09/20 11:34 Metoprolol Tartrate (Lopresser) 25 mg BID PO 09/09/20 21:00 09/14/20 11:02 DC 09/12/20 21:00 Enoxaparin Sodium (Lovenox) 80 mg BID SQ 09/09/20 19:00 09/11/20 15:51 DC 09/11/20 09:00 Sodium Chloride 250 ml @ ud STK-MED ONCE IV 09/10/20 12:50 09/10/20 12:51 DC Enoxaparin Sodium (Lovenox) 80 mg STK-MED ONCE SQ 09/10/20 21:17 09/10/20 21:17 DC Lorazepam (Ativan) 1 mg Q4HR PRN IV ANXIETY 09/11/20 00:30 10/11/20 00:29 09/13/20 04:00 Enoxaparin Sodium (Lovenox) 80 mg BID SQ 09/11/20 21:00 09/13/20 15:41 DC 09/12/20 21:00 Methylprednisolone Acetate (Depo-Medrol) 40 mg Q8HR IM 09/11/20 22:00 09/11/20 18:19 DC Quetiapine Fumarate (Seroquel) 25 mg BID PO 09/12/20 21:00 09/13/20 15:41 DC 09/12/20 21:00 Quetiapine Fumarate (Seroquel) 25 mg BID PO 09/13/20 03:00 09/13/20 04:46 DC Dexmedetomidine HCl 400 mcg/ Sodium Chloride 100 ml @ 0 mls/hr IV 09/13/20 05:00 10/13/20 04:59 09/14/20 09:26 Sodium Chloride 100 ml @ ud STK-MED ONCE IV 09/13/20 05:16 09/13/20 05:16 DC Hydralazine HCl (Apresoline) 5 mg STAT STAT IV 09/13/20 08:19 09/13/20 08:21 DC 09/13/20 08:30 Hydralazine HCl (Apresoline) 5 mg STAT STAT IV 09/13/20 09:43 09/13/20 10:03 DC 09/13/20 09:43 Sterile Water (Water) 1,000 ml STK-MED ONCE .ROUTE 09/13/20 11:31 09/13/20 11:31 DC Sodium Chloride 1,000 ml @ ud STK-MED ONCE .ROUTE 09/13/20 11:31 09/13/20 11:31 DC Propofol 100 ml @ ud STK-MED ONCE IV 09/13/20 11:46 09/13/20 11:47 DC Propofol (Diprivan) 1,000 mg STAT IV 09/13/20 13:00 10/13/20 12:59 09/16/20 10:29 Sodium Chloride 1,000 ml @ 0 mls/hr Q0M ONCE IV 09/13/20 11:45 09/13/20 13:21 DC 09/13/20 11:45 Fentanyl Citrate 2000 mcg/Sodium Chloride 200 ml @ 7.4 mls/hr IV 09/13/20 16:00 09/13/20 19:50 DC 09/13/20 16:17 Methylprednisolone Sodium Succinate (Solu-Medrol) 40 mg Q8HR IV 09/13/20 22:00 09/17/20 07:00 09/16/20 12:26 Succinylcholine Chloride (Quelicin) 100 mg STK-MED ONCE IV 09/13/20 11:58 09/13/20 18:48 DC Propofol (Diprivan) 150 mg STK-MED ONCE IV 09/13/20 11:58 09/13/20 18:48 DC Furosemide (Lasix) 20 mg STAT STAT IV 09/13/20 19:07 09/13/20 19:47 DC 09/13/20 19:07 Enoxaparin Sodium (Lovenox) 70 mg BID SQ 09/13/20 21:00 10/13/20 20:59 09/16/20 09:00 Insulin Human Lispro (Humalog) 0-140 0 Units 141-200... Q6 SQ 09/14/20 00:00 10/16/22 20:59 09/16/20 12:00 Fentanyl Citrate 5000 mcg/Sodium Chloride 500 ml @ 11.4 mls/hr IV 09/13/20 20:00 10/13/20 19:59 09/15/20 18:32 Sodium Chloride 500 ml @ 500 mls/hr Q1H ONCE IV 09/13/20 21:00 09/13/20 21:59 DC 09/13/20 21:00 Sodium Chloride 500 ml @ ud STK-MED ONCE IV 09/13/20 20:34 09/13/20 20:34 DC Sodium Chloride 250 ml @ ud STK-MED ONCE IV 09/13/20 20:34 09/13/20 20:34 DC Norepinephrine Bitartrate (Levophed) 4 mg STK-MED ONCE .ROUTE 09/13/20 20:34 09/13/20 20:35 DC Norepinephrine Bitartrate 8 mg/ Sodium Chloride 250 ml @ 0 mls/hr PRN PRN IV HYPOTENSION 09/13/20 21:00 10/13/20 20:59 09/13/20 20:47 Furosemide (Lasix) 40 mg STK-MED ONCE .ROUTE 09/13/20 21:19 09/13/20 21:19 DC Docusate Sodium (Colace) 100 mg BID PO 09/14/20 21:00 10/14/20 20:59 09/16/20 09:00 Ceftriaxone Sodium 1000 mg/ Sodium Chloride 100 ml @ 200 mls/hr Q24HRS IV 09/14/20 15:00 09/19/20 14:59 09/16/20 14:36 Azithromycin 500 mg/Sodium Chloride 250 ml @ 175 mls/hr Q24HRS IV 09/14/20 16:00 09/17/20 15:59 09/16/20 16:00 Sodium Chloride 1,000 ml @ 75 mls/hr [id number] IV 09/14/20 15:30 10/14/20 15:29 09/16/20 00:18 Heparin Sodium/ Sodium Chloride 500 ml @ ud STK-MED ONCE IV 09/14/20 18:32 09/14/20 18:32 DC Vecuronium Rotan (Norcuron) 10 mg STK-MED ONCE .ROUTE 09/14/20 18:40 09/14/20 18:40 DC Sterile Water (Water) 1,000 ml STK-MED ONCE .ROUTE 09/15/20 00:38 09/15/20 00:39 DC Insulin Glargine (Lantus) 10 unit BID SQ 09/15/20 14:30 09/16/20 12:30 DC 09/16/20 08:28 Sterile Water (Water) 1,000 ml STK-MED ONCE .ROUTE 09/15/20 20:12 09/15/20 20:13 DC Vecuronium Rotan (Norcuron) 10 mg STAT ONCE IV 09/16/20 10:00 09/16/20 10:12 DC 09/16/20 11:00 Insulin Glargine (Lantus) 20 unit BID SQ 09/16/20 21:00 10/16/20 20:59 Pantoprazole Sodium (Protonix Iv) 40 mg DAILY IV 09/17/20 09:00 10/17/20 08:59 Sterile Water (Water) 1,000 ml STK-MED ONCE .ROUTE 09/16/20 16:52 09/16/20 16:53 DC Pertinent Labs Laboratory Tests Test 09/14/20 17:42 09/15/20 00:20 09/15/20 04:09 09/15/20 05:49 Bedside Glucose 232 283 276 White Blood Count 16.8 10^3/uL Red Blood Count 4.60 10^6/uL Hemoglobin 13.4 g/dL Hematocrit 39.6 % Mean Corpuscular Volume 86.1 fL Mean Corpuscular Hemoglobin 29.1 pg Mean Corpuscular Hemoglobin Concent 33.8 g/dL Red Cell Distribution Width 13.1 % Platelet Count 355 10^3/uL Mean Platelet Volume 9.9 fL Neutrophils (%) (Auto) 92.1 % Lymphocytes (%) (Auto) 2.5 % Monocytes (%) (Auto) 3.7 % Neutrophils # (Auto) 15.5 10^3/uL Lymphocytes # (Auto) 0.42 10^3/uL1 Monocytes # (Auto) 0.6 10^3/uL Absolute Immature Granulocyte (auto 0.28 10^3 u/L Absolute Eosinophils (auto) 0.0 10^3/uL Immature Granulocytes % 1.70 % Eosinophils % 0.0 % Basophils % 0.0 % Basophils # 0.0 10^3/uL Sodium Level 139 mmol/L Potassium Level 4.1 mmol/L Chloride Level 105.0 mmol/L Carbon Dioxide Level 23.9 mmol/L Anion Gap 14.2 Blood Urea Nitrogen 52 mg/dL Creatinine 1.34 mg/dL Estimated GFR () 64.9 Est GFR (CKD-EPI)(Non-Afr [place]ian) 53.7 BUN/Creatinine Ratio 38.0 Glucose Level 305 mg/dL Calcium Level 7.1 mg/dL Total Bilirubin 0.4 mg/dL Aspartate Amino Transf (AST/SGOT) 17 U/L Alanine Aminotransferase (ALT/SGPT) 17 U/L Alkaline Phosphatase 65 U/L C-Reactive Protein 3.29 mg/dL Total Protein 5.6 g/dL Albumin 2.0 g/dL Globulin 3.6 Albumin/Globulin Ratio 0.555 Test 09/15/20 05:50 09/15/20 08:02 09/15/20 11:39 09/15/20 15:05 Segmented Neutrophils 98 % Lymphocytes 1 % Monocytes 1 % Platelet Estimate ADEQUATE Platelet Morphology NORMAL Blood Gas Sample Site ART LINE Blood Gas pH 7.335 Blood Gas PCO2 42.5 mmHg Blood Gas PO2 72.2 mmHg Blood Gas HCO3 22.2 mmol/L Blood Gas Base Excess -3.6 mmol/L Abdi Test POSITIVE Arterial Blood Oxygen Saturation 93.1 % Deoxyhemoglobin 6.8 % Carboxyhemoglobin 0.6 % Methemoglobin 0.3 % Total Hemoglobin 13.6 % Total Oxygen Concentration 17.7 % Blood Gas Temperature 37 Oxygen Delivery Method (LAB) VENT Blood Gas Vent Mode ACVC Blood Gas Vent Rate 25 FiO2 100 % Blood Gas Tidal Volume 400 ML Blood Gas PEEP 12 CMH2O Total Carbon Dioxide 23.5 mmol/L Bedside Glucose 294 Procalcitonin 0.15 ng/mL Test 09/15/20 17:08 09/15/20 20:08 09/15/20 23:59 09/16/20 04:23 Bedside Glucose 288 260 284 White Blood Count 15.2 10^3/uL Red Blood Count 4.03 10^6/uL Hemoglobin 11.7 g/dL Hematocrit 35.3 % Mean Corpuscular Volume 87.6 fL Mean Corpuscular Hemoglobin 29.0 pg Mean Corpuscular Hemoglobin Concent 33.1 g/dL Red Cell Distribution Width 13.1 % Platelet Count 234 10^3/uL Mean Platelet Volume 10.2 fL Neutrophils (%) (Auto) 94.0 % Lymphocytes (%) (Auto) 1.8 % Monocytes (%) (Auto) 3.0 % Neutrophils # (Auto) 14.3 10^3/uL Lymphocytes # (Auto) 0.28 10^3/uL1 Monocytes # (Auto) 0.5 10^3/uL Absolute Immature Granulocyte (auto 0.16 10^3 u/L Absolute Eosinophils (auto) 0.0 10^3/uL Immature Granulocytes % 1.10 % Eosinophils % 0.0 % Basophils % 0.1 % Basophils # 0.0 10^3/uL D-Dimer 1.67 mg/L Sodium Level 140 mmol/L Potassium Level 4.9 mmol/L Chloride Level 107.0 mmol/L Carbon Dioxide Level 24.8 mmol/L Anion Gap 13.1 Blood Urea Nitrogen 50 mg/dL Creatinine 1.14 mg/dL Estimated GFR () 78.3 Est GFR (CKD-EPI)(Non-Afr [place]ian) 64.7 BUN/Creatinine Ratio 43.0 Glucose Level 313 mg/dL Calcium Level 7.0 mg/dL Total Bilirubin 0.3 mg/dL Aspartate Amino Transf (AST/SGOT) 16 U/L Alanine Aminotransferase (ALT/SGPT) 16 U/L Alkaline Phosphatase 68 U/L Total Protein 4.9 g/dL Albumin 1.8 g/dL Globulin 3.1 Albumin/Globulin Ratio 0.580 Test 09/16/20 05:22 09/16/20 05:42 09/16/20 06:16 09/16/20 12:17 Bedside Glucose 278 222 Blood Gas Sample Site [id number] Blood Gas pH 7.310 Blood Gas PCO2 46.1 mmHg Blood Gas PO2 61.6 mmHg Blood Gas HCO3 22.7 mmol/L Blood Gas Base Excess -3.7 mmol/L Abdi Test N/A Arterial Blood Oxygen Saturation 89.2 % Deoxyhemoglobin 10.7 % Carboxyhemoglobin 0.3 % Methemoglobin 0.3 % Total Hemoglobin 13.4 % Total Oxygen Concentration 16.7 % Blood Gas Temperature 37 Oxygen Delivery Method (LAB) VENT Blood Gas Vent Mode ACVC Blood Gas Vent Rate 25 FiO2 75 % Blood Gas Tidal Volume 400 ML Blood Gas PEEP 10 CMH2O Total Carbon Dioxide 24.1 mmol/L Segmented Neutrophils 97 % Lymphocytes 1 % Monocytes 2 % Platelet Estimate ADEQUATE Platelet Morphology NORMAL Test 09/16/20 13:15 Procalcitonin 0.05 ng/mL Height (Feet): 5 Height (Inches): 6 Current Weight: 184 %IBW: 117 Recent Weight Change: Yes (wt trending up last 4 days, up 21#) Weight Status: Overweight GI Symptoms: None Food Allergies: No Cultural/Ethnic/Hoahaoism Marylou: none identified BEE in Kcals: Use Current Weight Calories/Kcals/Kg: [address] 2002 Kcals Calculated: 1687 kcal Protein: Use Current Weight Protein g/k.8-1 g/kg Protein Calculated: 60-75g Fluid: ml: 2414-1850 ml or 1 ml/kcal Nutritional Problem: No Cur. Nutritional Probl Recommendations by RD: Add supplement feedings RD Comments: 1. Continue Glucerna 1.5 165cc Q4h with 155cc water flush Q4. This will provide 1485 kcal, 81 g pro, 130 g CHO, 16 g fat, and 1687 ml of water to meet 100% of the pts nutrition needs in combination with calories from propofol. 2. Monitor K, Mg, and PO4 before and during EN initiation. 3. Monitor BG Q4hr and correct as indicated. RD to monitor TF tolerance, weight, labs, care plan, and vent and sedation setting. Will update recommendations accordingly. Expected Outcomes TF meeting 100% of pts needs the next 2 days and tolerated well. met, continue Discharge goal is pending. Malnutrtion/Nutrition Risk Edu: No MD Notificiation Needed?: No Jessica Morris Sep 16, 2020 17:26
[2020-09-17] VITALS (81 sets, daily range): BP systolic 92–164; BP diastolic 38–67
[2020-09-17] MEDS: VENTOLIN HFA IH SCH ×7 (00:39→23:30)
[2020-09-17 04:21] LABS: LYMPHOCYTES # 0.22 10^3/uL1 (1.0-4.8); LYMPHOCYTES % 1.3 % (24.0-44.0); MEAN CORP HGB 28.6 pg (26-34); MONOCYTES # 0.7 10^3/uL (0.3-0.8); MONOCYTES % 4.1 % (5.0-12.0); NEUTROPHIL # 16.4 10^3/uL (1.8-7.7); NEUTROPHILS % 93.7 % (41.0-85.0); PLATELET COUNT 217 10^3/uL (150-400)
[2020-09-17 04:54] LABS: CALCIUM 7.4 mg/dL (8.4-10.5); CARBON DIOXIDE 26.2 mmol/L (20.0-32)
[2020-09-17 05:13] LABS: LYMPHOCYTE 1 % (25-36); MONOCYTE 3 % (3-9); SEGMENTED NEUTROPHILS 96 % (31-76)
[2020-09-17] MEDS: SOLU-MEDROL IV SCH (06:00)
[2020-09-17] MEDS: HUMALOG SQ SCH ×5 (06:00→23:57)
[2020-09-17 06:35] LABS: ABG PCO2 45.2 mmHg (35.0-45.0); ABG PH 7.303 (7.350-7.450); BE(B) -4.4 mmol/L (-2.0-2.0); HCO3act 21.9 mmol/L (22.0-26.0)
--- NOTE | 2020-09-17 07:08 | NUR ---
Reported patient potassium 5.2. Provider placed order for one time dose 20mg lasix IV push. Also patient has not had a bowl movement since 09/10/2019. Provider will put in order for abdominal xray.
--- NOTE | 2020-09-17 07:11 | DIREP ---
PROCEDURE:CHEST 1 VIEW COMPARISON:[facility], CR, XRAY CHEST SINGLE VW, 09/16/2020, 11:10 AM. INDICATIONS:intuabated FINDINGS: LUNGS/PLEURA:Bilateral airspace opacities (right worse than left) are again demonstrated. VASCULATURE:Normal. Unremarkable pulmonary vasculature. CARDIAC:Normal. No cardiac silhouette abnormality or cardiomegaly. MEDIASTINUM:Normal. No visible mass or adenopathy. BONES:Normal. No fracture or visible bony lesion. OTHER:The endotracheal tube is well positioned with tip 5 cm superior to the saurabh. The gastric tube and PICC line via the right upper extremity approach are well-positioned as well. CONCLUSION: 1. The tracheal tube is well positioned with tip 5 cm superior to the saurabh. 2. Bilateral pneumonia appears essentially unchanged. Dictated by: Van Palacios M.D. on 09/17/2020 at 07:07 AM
[2020-09-17] MEDS ORDERED: LASIX IV ONE (08:00)
[2020-09-17] MEDS: LANTUS SQ SCH ×2 (08:34→20:31)
[2020-09-17] MEDS: COLACE PO SCH ×2 (08:36→20:30)
[2020-09-17] MEDS: ZINC SULFATE PO SCH ×2 (08:36→20:31)
[2020-09-17] MEDS: PROTONIX IV IV SCH (08:36)
[2020-09-17] MEDS: LOVENOX SQ SCH ×2 (08:36→20:32)
[2020-09-17] MEDS: VITAMIN C PO SCH ×2 (08:36→20:31)
--- NOTE | 2020-09-17 09:12 | PRM.PN ---
Subjective Subjective Date: Sep 17, 2020 Time: 09:05 Subjective no acute events overnight nursing worried about Potassium VTE VTE Risk Total Score: 2 VTE Risk Score VTE Risk: Score 0-1 = Low Risk (Aggressive mobilization; early ambulation; no VTE prophylaxis required) Score 2: Moderate Risk (Intermittent/Pneumatic Compression Device OR Lovenox/Heparin/Coumadin) Score 3-4: High Risk (Intermittent/Pneumatic Compression Device AND Lovenox/Heparin/Coumadin) Score > or =5: Highest Risk (Intermittent/Pneumatic Compression Device AND Lovenox/Heparin/Coumadin) Antico:Hep/LMWH/Coum/Xarelto: Yes Review of Systems Constitutional: Other (non verbal sedated and intubated ) Allergies: Coded Allergies: No Known Allergies (Unverified , 09/03/20) Scheduled Lisinopril (Lisinopril), 1 TAB PO BID, (Reported) Metformin Hcl (Metformin Hcl), 1,000 MG PO BID, (Reported) Objective Vitals and I/O Vital Sign - Last 24 Hours 09/17/20 09/17/20 09/17/20 09/17/20 07:00 07:15 07:30 07:45 Temp 98.6 98.4 98.4 98.4 Pulse 64 62 61 62 Resp 25 25 25 25 B/P (MAP) 116/49 (71) 108/52 (70) 111/52 (71) 116/54 (74) 101/50 (67) Pulse Ox 94 95 94 95 09/17/20 09/17/20 09/17/20 09/17/20 07:45 08:00 08:00 08:00 Temp 98.4 Pulse 60 60 Resp 25 25 25 B/P (MAP) 118/54 122/58 (79) 117/54 (75) Pulse Ox 94 94 O2 Delivery Mechanical Ventilator FiO2 90 90 09/17/20 08:00 O2 Delivery Mechanical Ventilator O2 Flow Rate 100.00 General: Other (sedated and intubated ) HEENT: Mucous membr. moist/pink Neck: No JVD Lungs: Clear to auscultation, Normal air movement Heart: Regular rate ( ), Normal S1, Normal S2, No murmurs Abdomen: Normal bowel sounds, Soft, No tenderness, Other (franz and nasogastric tube in place ) Extremities: No edema, Normal pulses, No tenderness/swelling Skin: No significant lesion All Results(Lab/Rad) Laboratory Tests Test 09/03/20 21:02 09/04/20 04:47 09/04/20 05:59 09/04/20 07:15 Bedside Glucose 164 120 123 White Blood Count 8.1 10^3/uL Red Blood Count 4.89 10^6/uL Hemoglobin 14.2 g/dL Hematocrit 40.7 % Mean Corpuscular Volume 83.2 fL Mean Corpuscular Hemoglobin 29.0 pg Mean Corpuscular Hemoglobin Concent 34.9 g/dL Red Cell Distribution Width 12.0 % Platelet Count 185 10^3/uL Mean Platelet Volume 9.6 fL Neutrophils (%) (Auto) 83.5 % Lymphocytes (%) (Auto) 9.7 % Monocytes (%) (Auto) 6.0 % Neutrophils # (Auto) 6.8 10^3/uL Lymphocytes # (Auto) 0.79 10^3/uL1 Monocytes # (Auto) 0.5 10^3/uL Absolute Immature Granulocyte (auto 0.05 10^3 u/L Absolute Eosinophils (auto) 0.0 10^3/uL Immature Granulocytes % 0.60 % Eosinophils % 0.0 % Basophils % 0.2 % Basophils # 0.0 10^3/uL Sodium Level 132 mmol/L Potassium Level 3.6 mmol/L Chloride Level 97.0 mmol/L Carbon Dioxide Level 26.0 mmol/L Anion Gap 12.6 Blood Urea Nitrogen 21 mg/dL Creatinine 1.18 mg/dL Estimated GFR () 75.2 Est GFR (CKD-EPI)(Non-Afr Colombian) 62.1 BUN/Creatinine Ratio 17.0 Glucose Level 118 mg/dL Hemoglobin A1c 8.0 % Calcium Level 8.3 mg/dL Total Bilirubin 0.7 mg/dL Aspartate Amino Transf (AST/SGOT) 55 U/L Alanine Aminotransferase (ALT/SGPT) 37 U/L Alkaline Phosphatase 40 U/L Total Protein 6.5 g/dL Albumin 2.3 g/dL Globulin 4.2 Albumin/Globulin Ratio 0.547 Triglycerides Level 65 mg/dL Cholesterol Level 76 mg/dL LDL Cholesterol, Calculated 26.0 VLDL Cholesterol, Calculated 13.0 HDL Cholesterol 37 mg/dL Cholesterol Ratio (LDL/HDL) 0.7 Cholesterol/HDL Ratio 2.080204 Test 09/04/20 11:37 1/5/21 12:22 09/04/20 16:36 Bedside Glucose 159 131 D-Dimer 1.85 mg/L Troponin I < 0.02 ng/mL Pro-B-Type Natriuretic Peptide 97 pg/mL Current Medications Medications (Trade) Dose Ordered Sig/Adrianna Route PRN Reason Start Time Stop Time Status Last Admin Dose Admin Acetaminophen (Tylenol) 325 mg Q4H PRN PO PAIN 1 - 3 09/03/20 19:00 10/03/20 18:59 Morphine Sulfate (Morphine Sulfate) 2 mg Q4H PRN IV PAIN 4 - 6 09/03/20 19:00 09/04/20 19:28 DC Insulin Human Lispro (Humalog) 0-140 0 Units 141-200... ACHS SQ 09/03/20 21:00 10/03/20 20:59 09/04/20 11:30 Dextrose 1,000 ml @ 100 mls/hr Q10H PRN IV HYPOGLYCEMIA 09/03/20 19:00 10/03/20 18:59 Dextrose (Dextrose 50%-Water Syringe) 25 ml STAT PRN IV HYPOGLYCEMIA 09/03/20 19:00 10/03/20 18:59 Glucagon (Glucagen) 1 mg STAT STAT IV 09/03/20 18:44 09/03/20 18:56 DC Heparin Sodium (Porcine) (Heparin) 5,000 unit Q8HR SQ 09/03/20 22:00 10/03/20 21:59 09/04/20 14:00 Lisinopril (Zestril) 20 mg BID PO 09/03/20 21:00 10/03/20 20:59 09/04/20 08:22 Azithromycin 500 mg/Sodium Chloride 250 ml @ 175 mls/hr Q24HRS IV 09/03/20 20:30 09/04/20 08:15 DC 09/03/20 21:11 Ceftriaxone Sodium 1000 mg/ Sodium Chloride 100 ml @ 100 mls/hr Q24HRS IV 09/03/20 19:30 09/04/20 08:15 DC 09/03/20 19:39 Sodium Chloride 1,000 ml @ 75 mls/hr [id number] IV 09/03/20 20:00 10/03/20 19:59 09/04/20 09:20 Ceftriaxone Sodium (Rocephin) 1,000 mg STK-MED ONCE .ROUTE 09/03/20 19:35 09/03/20 19:35 DC Sodium Chloride 100 ml @ ud STK-MED ONCE IV 09/03/20 19:35 09/03/20 19:36 DC Zinc Sulfate (Zinc Sulfate) 220 mg DAILY PO 09/04/20 09:00 10/04/20 08:59 09/04/20 08:22 Ascorbic Acid (Vitamin C) 500 mg BID PO 09/04/20 09:00 10/04/20 08:59 09/04/20 08:22 Morphine Sulfate (Morphine Sulfate) 2 mg Q4H PRN IV PAIN 4 - 6 09/04/20 19:28 10/03/20 18:59 Course Sepsis Screening Results: Posi: POSITIVE++ Sepsis Qualifier/Stage: SEVERE SEPSIS RISK DATE SEEN BY PHYSICIAN: Sep 11, 2020 TIME SEEN BY PROVIDER: 13:20 Vitals & review Data Vital Sign - Last 24 Hours 09/11/20 09/11/20 09/11/20 09/11/20 07:00 07:00 07:30 08:00 Temp 98.0 Pulse 62 67 Resp 28 27 B/P (MAP) 160/83 (108) 150/75 (100) Pulse Ox 96 91 O2 Delivery Non-Rebreather O2 Flow Rate 15.00 09/11/20 09/11/20 09/11/20 09/11/20 08:25 08:40 09:00 09:00 Pulse 65 87 81 Resp 22 19 B/P (MAP) 149/72 149/86 Pulse Ox 93 94 O2 Delivery Non-Rebreather O2 Flow Rate 15.00 FiO2 100 09/11/20 09/11/20 09/11/20 09/11/20 09:00 10:00 11:00 12:00 Pulse 67 74 68 Resp 25 30 35 B/P (MAP) 149/72 (97) 128/69 (88) 134/65 (88) Pulse Ox 93 88 91 O2 Delivery Non-Rebreather O2 Flow Rate 15.00 Intake and Output 09/11/20 07:00 Intake Total 335 ml Output Total 670 ml Balance -335 ml Laboratory Tests Test 09/09/20 16:50 09/09/20 19:54 09/10/20 04:26 09/10/20 04:54 Bedside Glucose 192 219 93 White Blood Count 11.8 10^3/uL Red Blood Count 4.77 10^6/uL Hemoglobin 13.8 g/dL Hematocrit 39.8 % Mean Corpuscular Volume 83.4 fL Mean Corpuscular Hemoglobin 28.9 pg Mean Corpuscular Hemoglobin Concent 34.7 g/dL Red Cell Distribution Width 12.3 % Platelet Count 361 10^3/uL Mean Platelet Volume 9.2 fL Neutrophils (%) (Auto) 84.0 % Lymphocytes (%) (Auto) 9.0 % Monocytes (%) (Auto) 4.8 % Neutrophils # (Auto) 9.9 10^3/uL Lymphocytes # (Auto) 1.06 10^3/uL1 Monocytes # (Auto) 0.6 10^3/uL Absolute Immature Granulocyte (auto 0.23 10^3 u/L Absolute Eosinophils (auto) 0.0 10^3/uL Immature Granulocytes % 2.00 % Eosinophils % 0.1 % Basophils % 0.1 % Basophils # 0.0 10^3/uL D-Dimer 8.09 mg/L Sodium Level 140 mmol/L Potassium Level 3.7 mmol/L Chloride Level 106.0 mmol/L Carbon Dioxide Level 27.2 mmol/L Anion Gap 10.5 Blood Urea Nitrogen 19 mg/dL Creatinine 0.96 mg/dL Estimated GFR () 95.4 Est GFR (CKD-EPI)(Non-Afr Colombian) 78.9 BUN/Creatinine Ratio 19.0 Glucose Level 100 mg/dL Calcium Level 7.9 mg/dL Phosphorus Level 2.4 mg/dL Magnesium Level 1.8 mg/dL Ferritin 1073 ng/mL Total Bilirubin 0.7 mg/dL Aspartate Amino Transf (AST/SGOT) 27 U/L Alanine Aminotransferase (ALT/SGPT) 29 U/L Alkaline Phosphatase 58 U/L Lactate Dehydrogenase 295 U/L Total Creatine Kinase 41 U/L C-Reactive Protein 3.25 mg/dL Total Protein 5.7 g/dL Albumin 2.0 g/dL Globulin 3.7 Albumin/Globulin Ratio 0.540 Procalcitonin 0.10 ng/mL Test 09/10/20 07:10 09/10/20 11:33 09/10/20 16:46 09/10/20 19:51 Bedside Glucose 134 173 178 169 Test 09/11/20 01:56 09/11/20 02:03 09/11/20 05:13 09/11/20 05:14 Bedside Glucose 159 145 Blood Gas Sample Site LB Blood Gas pH 7.398 Blood Gas PCO2 31.4 mmHg Blood Gas PO2 54.5 mmHg Blood Gas HCO3 18.9 mmol/L Blood Gas Base Excess -4.8 mmol/L Abdi Test POSITIVE Arterial Blood Oxygen Saturation 87.1 % Deoxyhemoglobin 12.9 % Carboxyhemoglobin 0.3 % Methemoglobin 0.0 % Total Hemoglobin 13.4 % Total Oxygen Concentration 16.3 % Blood Gas Temperature 37 Oxygen Delivery Method (LAB) NON-REBREATHER MASK FiO2 100 % Total Carbon Dioxide 19.9 mmol/L White Blood Count 11.5 10^3/uL Red Blood Count 4.66 10^6/uL Hemoglobin 13.4 g/dL Hematocrit 39.1 % Mean Corpuscular Volume 83.9 fL Mean Corpuscular Hemoglobin 28.8 pg Mean Corpuscular Hemoglobin Concent 34.3 g/dL Red Cell Distribution Width 12.2 % Platelet Count 296 10^3/uL Mean Platelet Volume 9.2 fL Neutrophils (%) (Auto) 87.0 % Lymphocytes (%) (Auto) 5.9 % Monocytes (%) (Auto) 5.0 % Neutrophils # (Auto) 10.0 10^3/uL Lymphocytes # (Auto) 0.68 10^3/uL1 Monocytes # (Auto) 0.6 10^3/uL Absolute Immature Granulocyte (auto 0.23 10^3 u/L Absolute Eosinophils (auto) 0.0 10^3/uL Immature Granulocytes % 2.00 % Eosinophils % 0.0 % Basophils % 0.1 % Basophils # 0.0 10^3/uL Sodium Level 139 mmol/L Potassium Level 3.9 mmol/L Chloride Level 106.0 mmol/L Carbon Dioxide Level 23.2 mmol/L Anion Gap 13.7 Blood Urea Nitrogen 22 mg/dL Creatinine 0.88 mg/dL Estimated GFR () 105.5 Est GFR (CKD-EPI)(Non-Afr Colombian) 87.2 BUN/Creatinine Ratio 25.0 Glucose Level 151 mg/dL Calcium Level 8.3 mg/dL Phosphorus Level 3.1 mg/dL Magnesium Level 2.3 mg/dL Total Bilirubin 0.7 mg/dL Aspartate Amino Transf (AST/SGOT) 27 U/L Alanine Aminotransferase (ALT/SGPT) 23 U/L Alkaline Phosphatase 71 U/L Total Protein 5.7 g/dL Albumin 2.0 g/dL Globulin 3.7 Albumin/Globulin Ratio 0.540 Test 09/11/20 05:41 09/11/20 07:35 09/11/20 07:50 09/11/20 11:42 Blood Gas Sample Site RT RADIAL ARTERY RR Blood Gas pH 7.405 7.398 Blood Gas PCO2 35.2 mmHg 36.1 mmHg Blood Gas PO2 53.5 mmHg 52.5 mmHg Blood Gas HCO3 21.6 mmol/L 21.8 mmol/L Blood Gas Base Excess -2.5 mmol/L -2.5 mmol/L Abdi Test POSITIVE POSITIVE Arterial Blood Oxygen Saturation 87.9 % 86.0 % Deoxyhemoglobin 12.1 % 13.9 % Carboxyhemoglobin 0 % 0.6 % Methemoglobin 0.1 % 0.3 % Total Hemoglobin 14.0 % 13.9 % Total Oxygen Concentration 17.3 % 16.6 % Blood Gas Temperature 37 37 Oxygen Delivery Method (LAB) NON-REBREATHER MASK NON-REBREATHER MASK FiO2 100 % 100 % Total Carbon Dioxide 22.6 mmol/L 22.9 mmol/L Bedside Glucose 133 185 Current Medications Medications (Trade) Dose Ordered Sig/Adrianna PRN Reason Start Time Stop Time Status Last Admin Enoxaparin Sodium (Lovenox) 80 mg BID 09/09/20 19:00 10/04/20 20:29 09/11/20 09:00 Lorazepam (Ativan) 1 mg Q4HR PRN ANXIETY 09/11/20 00:30 10/11/20 00:29 09/11/20 09:00 Metoprolol Tartrate (Lopresser) 25 mg BID 09/09/20 21:00 10/09/20 20:59 09/11/20 09:00 Remdesivir 100 mg/ Sodium Chloride 120 ml @ 111.111 mls/hr Q24HRS 09/08/20 19:00 10/08/20 18:59 09/10/20 18:00 LEVEL 1 SEPSIS INFECTION CRITE: ABX Therapy, Cough/Shortness of Breath, Flu- Pneumonia LEVEL 2-SIRS (LIST ALL THAT AP: RR>20/min, [id number] Cardiovascular Evidence: Not Assessed or None Hematologic Evidence: None/Not assessed Hepatic Evidence: None/Not assessed Metabolic Evidence: None/Not assessed Neurological Evidence: Altered Mental Status Respiratory Evidence: Acute Resp failure, Need for O2 to keep>90%, O2 SAT<90room air Renal Evidence: None/Not assessed O2 Sat by Pulse Oximetry: 94 Oxygen Flow Rate: 100.00 Assessment/Plan Assessment/Plan Assessment/Plan A 64 year old with COVID - 19 pneumonia with hypoxia ongoing mechanical ventilation Plan Plan ACUTE RESPIRATORY FAILURE WITH HYPOXIA - NIPPV - chest Xray - shows mild improvement COVID PNEUMONIA - on remdesivir - continue steroid regimen - begin to wean after day 5 - continue anecdotal medications - serial acute phase reactants - ddimer - trending down - procalcitonin normalized - on antibiotic CAP regimen day 4 - complete regimen tomorrow HYPERTENSION - steady with pressors DIABETES MELLITUS - lantus added BID- will increase - entereal feeding ongoing - continue sliding scale AZOTEMIA - ON maintenance fluids - added on Protonix LEUKOCYTOSIS - steriod induced Feeding - entereal and maintenance IVF Analgesia - PRN morphine Sedation - fentanyl and prop Thrombo - lovenox Head of bed - compliant Ulcer - protonix Glycemia -basal and sliding scale Spontaneous breathing trial - not ready Bowels care - in place constipation Indwelling franz - in place Deescalate antibiotics - currently on CAP therapy day 4 SALOME WATERS MD Sep 17, 2020 09:12
[2020-09-17] MEDS: SEROQUEL PO SCH ×2 (09:30→20:31)
[2020-09-17] MEDS: DIPRIVAN IV SCH ×3 (09:54→18:31)
--- NOTE | 2020-09-17 10:36 | DIREP ---
PROCEDURE:XRAY ABDOMEN SINGLE VW COMPARISON:[facility], CR, XRAY CHEST SINGLE VW, 09/17/2020, 06:23 AM. INDICATIONS:abdominal obstruction FINDINGS: BOWEL GAS PATTERN:The bowel gas pattern is nonspecific without evidence of obstruction. A gastric tube is noted with tip in the duodenal bulb or antrum of the stomach. CALCIFICATIONS:None significant. LUNG BASES:There appears to be atelectasis or infiltrate in the lung bases. BONES:Normal. OTHER:No additional findings. CONCLUSION: 1. Gastric tube well-positioned; the bowel gas pattern is unremarkable. Dictated by: Van Palacios M.D. on 09/17/2020 at 10:34 AM
--- NOTE | 2020-09-17 11:19 | TELE.CONS ---
Consultation Reason for Consult: Reason for Consultation: resp failure, covid History of Present Illness History of Patient Comments Patient remains intubated, sedated w/ severe ARDS. currently on PEEP 10 and Fio2 90%. Review of Systems Constitutional: Other (non verbal sedated and intubated ) Allergies: Coded Allergies: No Known Allergies (Unverified , 09/03/20) Scheduled Lisinopril (Lisinopril), 1 TAB PO BID, (Reported) Metformin Hcl (Metformin Hcl), 1,000 MG PO BID, (Reported) VITALS REVIEW VITALS Vital Sign - Last 24 Hours 09/17/20 09/17/20 09/17/20 09/17/20 07:00 07:15 07:30 07:45 Temp 98.6 98.4 98.4 98.4 Pulse 64 62 61 62 Resp 25 25 25 25 B/P (MAP) 116/49 (71) 108/52 (70) 111/52 (71) 116/54 (74) 101/50 (67) Pulse Ox 94 95 94 95 09/17/20 09/17/20 09/17/20 09/17/20 07:45 08:00 08:00 08:00 Temp 98.4 Pulse 60 60 Resp 25 25 25 B/P (MAP) 118/54 122/58 (79) 117/54 (75) Pulse Ox 94 94 O2 Delivery Mechanical Ventilator FiO2 90 90 09/17/20 09/17/20 09/17/20 09/17/20 08:00 08:45 08:45 08:45 Pulse 60 71 60 Resp 25 25 25 Pulse Ox 94 96 94 O2 Delivery Mechanical Ventilator Mechanical Ventilator O2 Flow Rate 100.00 FiO2 90 90 09/17/20 11:13 Pulse 70 Resp 25 Pulse Ox 95 FiO2 90 VTE VTE Risk Total Score: 2 VTE Risk Score VTE Risk: Score 0-1 = Low Risk (Aggressive mobilization; early ambulation; no VTE prophylaxis required) Score 2: Moderate Risk (Intermittent/Pneumatic Compression Device OR Lovenox/Heparin/Coumadin) Score 3-4: High Risk (Intermittent/Pneumatic Compression Device AND Lovenox/Heparin/Coumadin) Score > or =5: Highest Risk (Intermittent/Pneumatic Compression Device AND Lovenox/Heparin/Coumadin) Antico:Hep/LMWH/Coum/Xarelto: Yes VTE VTE Present on Admission: No Currently receiving anticoagul: No VTE Risk Total Score: 2 Antico:Hep/LMWH/Coum/Xarelto: Yes Assessment/Plan Assessment/Plan Assessment/Plan ACUTE RESPIRATORY FAILURE WITH HYPOXIA -increase PEEP to 12 -will add vecuronium for vent dyssynchrony -start lasix 40mg IV daily. may need to be increased COVID PNEUMONIA - continue steroids - on antibiotic CAP regimen Sinus bradycardia - with preserved BP, follow. Diabetes -lantus increased -cont ISS DVT prophylaxis: lovenox Stress ulcer prophylaxis Glycemic control Enteral feedings 60 minutes critical care HIPAA compliant 2 way audio visual technology was used TAMICA JESSICA MD Sep 17, 2020 11:19
[2020-09-17] MEDS: SUBLIMAZE IV SCH (11:22)
[2020-09-17] MEDS: NS IV SCH (11:22)
[2020-09-17] MEDS ORDERED: VELTASSA PO ONE (11:30)
[2020-09-17] MEDS: LASIX IV SCH (11:30)
[2020-09-17] MEDS: NORCURON IV PRN ×2 (11:45→15:00)
[2020-09-17] MEDS: ROCEPHIN 1,000 MG in NS 100ML 100 ML IV SCH (15:00)
[2020-09-17] MEDS ORDERED: NS 250ML 250 ML IV ONE (16:16)
[2020-09-17] MEDS ORDERED: LEVOPHED ONE (16:16)
[2020-09-17] MEDS: LEVOPHED 8 MG in NS 250ML 250 ML IV PRN (16:20)
[2020-09-17 16:23] LABS: CALCIUM 7.1 mg/dL (8.4-10.5); CARBON DIOXIDE 24.6 mmol/L (20.0-32)
--- NOTE | 2020-09-17 16:25 | NUR ---
Patient blood pressure 90's/40's MAP dropped to high 50's. 8mg Levophed mixed in 200ml normal saline and started. Notified Dr. Young, order still active. Will titrate levophed to a map of 65. current infusion running at 1mcg/min blood pressure 110/46 MAP 67.
--- NOTE | 2020-09-17 17:29 | NUR ---
Reported to Dr. Young patient repeat potassium level is 5.0. Provider ordered 30 mg Kayexalate.
[2020-09-17] MEDS ORDERED: SPS PO ONE (18:00)
[2020-09-17] MEDS ORDERED: WATER ONE (18:20)
[2020-09-17] MEDS ORDERED: NS 100ML 100 ML IV ONE (22:27)
[2020-09-17] MEDS ORDERED: SUBLIMAZE ONE (22:28)
[2020-09-18] VITALS (93 sets, daily range): BP systolic 71–241; BP diastolic 38–112
[2020-09-18] MEDS: VENTOLIN HFA IH SCH ×6 (03:15→23:46)
[2020-09-18 04:55] LABS: CARBON DIOXIDE 25.2 mmol/L (20.0-32)
[2020-09-18] MEDS: TYLENOL PO PRN (05:00)
[2020-09-18 05:04] LABS: EOSINOPHIL # 0.1 10^3/uL (0.0-0.2); EOSINOPHIL % 0.3 % (0.0-5.0); LYMPHOCYTES # 0.87 10^3/uL1 (1.0-4.8); LYMPHOCYTES % 4.3 % (24.0-44.0); MEAN CORP HGB 28.9 pg (26-34); MONOCYTES # 1.1 10^3/uL (0.3-0.8); MONOCYTES % 5.5 % (5.0-12.0); NEUTROPHIL # 17.6 10^3/uL (1.8-7.7); NEUTROPHILS % 86.3 % (41.0-85.0); PLATELET COUNT 202 10^3/uL (150-400); RED CELL DISTRIBUTION WIDTH 13.2 % (11.5-14.5)
[2020-09-18] MEDS: HUMALOG SQ SCH ×3 (06:00→18:00)
[2020-09-18 08:02] LABS: ABG PCO2 47.4 mmHg (35.0-45.0); BE(B) -1.1 mmol/L (-2.0-2.0); pO2 76.1 mmHg (80.0-100.0)
[2020-09-18] MEDS: VITAMIN C PO SCH ×2 (08:53→20:11)
[2020-09-18] MEDS: ZINC SULFATE PO SCH ×2 (08:55→20:11)
[2020-09-18] MEDS: LOVENOX SQ SCH ×2 (08:55→20:12)
[2020-09-18] MEDS: SEROQUEL PO SCH ×2 (08:55→20:11)
[2020-09-18] MEDS: PROTONIX IV IV SCH (08:56)
[2020-09-18] MEDS: LASIX IV SCH (08:56)
[2020-09-18] MEDS ORDERED: CEPHULAC NG SCH (09:00)
[2020-09-18] MEDS: NORCURON IV SCH ×8 (09:00→22:00)
[2020-09-18] MEDS: LANTUS SQ SCH ×2 (09:00→20:11)
[2020-09-18] MEDS: CEPHULAC NG SCH (09:00)
[2020-09-18] MEDS: COLACE PO SCH ×2 (09:01→20:10)
[2020-09-18] MEDS ORDERED: WATER ONE (09:55)
--- NOTE | 2020-09-18 10:30 | NUR ---
PICC LINE PICC LINE DRESSING CHANGE PERFORMED USING OUTREACH DIRECTOR, HUBS CHANGE X 2 PORTS. LINES FLUSHED BOTH WITH GOOD BLOOD RETURN. CLEANED WITH CHLORAPREP, NEW STATLOCK PLACED BIOPATCH PLACED OVER INSERTION SITE, SECURED WITH TEGADERM. ARM CIRCUMFERENCE 32CM. SITE IS WITHOUT S/S OF INFECTION.
[2020-09-18] MEDS: NS IV SCH (12:29)
[2020-09-18] MEDS: SUBLIMAZE IV SCH (12:29)
[2020-09-18] MEDS: LEVOPHED 8 MG in NS 250ML 250 ML IV PRN (13:20)
[2020-09-18] MEDS ORDERED: HEPARIN-D5W 20,000 UNIT/500 ML 500 ML IV ONE (13:59)
--- NOTE | 2020-09-18 14:52 | TELE.CONS ---
Consultation Reason for Consult: Reason for Consultation: COVID PNA History of Present Illness History of Patient Comments The pt remains intubated and sedated and will get proned today. Review of Systems Constitutional: Other (non verbal sedated and intubated ) Allergies: Coded Allergies: No Known Allergies (Unverified , 09/03/20) Scheduled Lisinopril (Lisinopril), 1 TAB PO BID, (Reported) Metformin Hcl (Metformin Hcl), 1,000 MG PO BID, (Reported) VITALS REVIEW VITALS Vital Sign - Last 24 Hours 09/18/20 09/18/20 09/18/20 09/18/20 07:00 07:15 07:30 07:45 Temp 99.5 99.5 99.5 99.5 Pulse 102 95 97 97 Resp 25 25 B/P (MAP) 117/63 (81) 90/44 (59) 120/57 (78) 88/46 (60) 114/51 (72) 97/45 (62) Pulse Ox 94 97 98 95 09/18/20 09/18/20 09/18/20 09/18/20 08:00 08:00 08:00 08:08 Temp 98.5 99.5 99.3 Pulse 92 83 90 Resp 25 6 B/P (MAP) 102/51 (68) 113/60 (77) 103/49 (67) 81/43 (56) 117/51 (73) 71/41 (51) Pulse Ox 97 99 96 O2 Delivery Mechanical Ventilator O2 Flow Rate 80.00 09/18/20 09/18/20 09/18/20 09/18/20 08:15 08:30 08:30 08:45 Temp 99.5 99.5 99.3 Pulse 96 89 102 112 Resp 01 22 13 22 B/P (MAP) 99/50 (66) 129/69 (89) 182/67 (105) 126/56 (79) Pulse Ox 96 98 95 91 09/18/20 09/18/20 09/18/20 09/18/20 08:56 09:00 09:02 09:02 Temp 99.3 Pulse 95 93 99 Resp 12 25 25 B/P (MAP) 144/61 134/63 (86) 119/54 (75) Pulse Ox 94 94 94 O2 Delivery Mechanical Ventilator FiO2 80 80 1/19/09/18/20 09/18/20 09/18/20 09:15 09:30 09:45 10:00 Temp 99.3 99.3 99.1 99.1 Pulse 91 99 98 108 Resp B/P (MAP) 108/48 (68) 149/73 (98) 107/47 (67) 132/65 (87) 148/61 (90) 141/54 (83) Pulse Ox 95 96 95 96 09/18/20 09/18/20 09/18/20 09/18/20 10:15 10:30 10:30 10:44 Temp 99.3 99.3 Pulse 105 100 94 105 Resp B/P (MAP) 124/49 (74) 120/57 (78) 119/49 (72) Pulse Ox 93 95 96 96 FiO2 80 80 09/18/20 09/18/20 09/18/20 09/18/20 10:45 11:00 11:15 11:29 Temp 99.5 99.5 99.7 99.7 Pulse 102 109 102 112 Resp B/P (MAP) 128/51 (76) 132/67 (88) 128/52 (77) 217/97 (137) 143/56 (85) 229/84 (132) Pulse Ox 97 95 97 92 09/18/20 09/18/20 09/18/20 09/18/20 11:30 11:45 11:56 12:00 Temp 99.9 99.9 99.9 Pulse 119 115 108 B/P (MAP) 208/75 (119) 241/90 (140) 219/112 (147) 235/86 (135) Pulse Ox 92 96 O2 Delivery Mechanical Ventilator O2 Flow Rate 80.00 09/18/20 09/18/20 09/18/20 09/18/20 12:00 12:10 12:15 12:30 Temp 99.9 99.9 100.0 Pulse 111 96 119 117 Resp 32 32 B/P (MAP) 220/108 (145) 222/77 (125) 187/88 (121) 233/83 (133) 174/65 (101) Pulse Ox 96 96 94 94 FiO2 80 09/18/20 09/18/20 09/18/20 09/18/20 12:45 12:45 13:00 13:15 Temp 100.2 100.2 100.2 Pulse 115 119 117 117 Resp 30 30 21 22 B/P (MAP) 181/67 (105) 151/73 (99) 120/53 (75) 135/56 (82) Pulse Ox 98 96 97 97 09/18/20 09/18/20 09/18/20 13:30 13:45 14:19 Temp 100.2 100.2 Pulse 107 104 102 Resp 28 29 30 B/P (MAP) 111/61 (78) 83/44 (57) 85/45 (58) Pulse Ox 100 100 91 FiO2 80 Intake and Output 09/18/20 06:00 Intake Total 4158.06 ml Output Total 1600 ml Balance 2558.06 ml LABS LAB RESULTS Laboratory Tests Test 09/03/20 18:04 09/03/20 18:37 09/03/20 21:02 09/04/20 04:47 Bedside Glucose 104 164 Nasal Adenovirus (PCR) NotDetected Nasal Coronavirus Type 229E (PCR) NotDetected Nasal Coronavirus Type HKU1 (PCR) NotDetected Nasal Coronavirus Type NL63 (PCR) NotDetected Nasal Coronavirus Type OC43 (PCR) NotDetected Nasal Enterovirus/Rhinovirus (PCR) NotDetected Nasal Influenza Type A (H1) (PCR) NotDetected Nasal Influenza Type A (H3) (PCR) NotDetected Nasal Swab Influenza Virus B (PCR) NotDetected Nasal Parainfluenza Type 1 (PCR) NotDetected Nasal Parainfluenza Type 2 (PCR) NotDetected Nasal Parainfluenza Type 3 (PCR) NotDetected Nasal Parainfluenza Type 4 (PCR) NotDetected Nasal Resp Syncytial Virus (PCR) NotDetected Nasal Bordetella pertussis DNA (PCR NotDetected Nasal Chlamydophila pneumoniae (PCR NotDetected Nasal Human Metapneumovirus (PCR) NotDetected Nasal Mycoplasma pneumoniae (PCR) NotDetected Nasal SARS-CoV-2 (PCR) NotDetected Influenza Type A (H1N1/09) (PCR) NotDetected White Blood Count 8.1 10^3/uL Red Blood Count 4.89 10^6/uL Hemoglobin 14.2 g/dL Hematocrit 40.7 % Mean Corpuscular Volume 83.2 fL Mean Corpuscular Hemoglobin 29.0 pg Mean Corpuscular Hemoglobin Concent 34.9 g/dL Red Cell Distribution Width 12.0 % Platelet Count 185 10^3/uL Mean Platelet Volume 9.6 fL Neutrophils (%) (Auto) 83.5 % Lymphocytes (%) (Auto) 9.7 % Monocytes (%) (Auto) 6.0 % Neutrophils # (Auto) 6.8 10^3/uL Lymphocytes # (Auto) 0.79 10^3/uL1 Monocytes # (Auto) 0.5 10^3/uL Absolute Immature Granulocyte (auto 0.05 10^3 u/L Absolute Eosinophils (auto) 0.0 10^3/uL Immature Granulocytes % 0.60 % Eosinophils % 0.0 % Basophils % 0.2 % Basophils # 0.0 10^3/uL Sodium Level 132 mmol/L Potassium Level 3.6 mmol/L Chloride Level 97.0 mmol/L Carbon Dioxide Level 26.0 mmol/L Anion Gap 12.6 Blood Urea Nitrogen 21 mg/dL Creatinine 1.18 mg/dL Estimated GFR () 75.2 Est GFR (CKD-EPI)(Non-Afr Dutch) 62.1 BUN/Creatinine Ratio 17.0 Glucose Level 118 mg/dL Hemoglobin A1c 8.0 % Calcium Level 8.3 mg/dL Total Bilirubin 0.7 mg/dL Aspartate Amino Transf (AST/SGOT) 55 U/L Alanine Aminotransferase (ALT/SGPT) 37 U/L Alkaline Phosphatase 40 U/L Total Protein 6.5 g/dL Albumin 2.3 g/dL Globulin 4.2 Albumin/Globulin Ratio 0.547 Triglycerides Level 65 mg/dL Cholesterol Level 76 mg/dL LDL Cholesterol, Calculated 26.0 VLDL Cholesterol, Calculated 13.0 HDL Cholesterol 37 mg/dL Cholesterol Ratio (LDL/HDL) 0.7 Cholesterol/HDL Ratio [id number] Test 09/04/20 05:59 09/04/20 07:15 09/04/20 11:37 09/04/20 12:22 Bedside Glucose 120 123 159 D-Dimer 1.85 mg/L Troponin I < 0.02 ng/mL Pro-B-Type Natriuretic Peptide 97 pg/mL Test 09/04/20 16:36 09/04/20 20:39 09/04/20 20:54 09/05/20 00:10 Bedside Glucose 131 158 Procalcitonin 0.74 ng/mL Yeast/Fungal Identification Test 09/05/20 04:05 09/05/20 05:40 09/05/20 08:09 09/05/20 09:30 White Blood Count 8.7 10^3/uL Red Blood Count 4.49 10^6/uL Hemoglobin 13.2 g/dL Hematocrit 38.0 % Mean Corpuscular Volume 84.6 fL Mean Corpuscular Hemoglobin 29.4 pg Mean Corpuscular Hemoglobin Concent 34.7 g/dL Red Cell Distribution Width 12.0 % Platelet Count 226 10^3/uL Mean Platelet Volume 9.6 fL Neutrophils (%) (Auto) 83.5 % Lymphocytes (%) (Auto) 10.2 % Monocytes (%) (Auto) 5.5 % Neutrophils # (Auto) 7.3 10^3/uL Lymphocytes # (Auto) 0.89 10^3/uL1 Monocytes # (Auto) 0.5 10^3/uL Absolute Immature Granulocyte (auto 0.05 10^3 u/L Absolute Eosinophils (auto) 0.0 10^3/uL Immature Granulocytes % 0.60 % Eosinophils % 0.1 % Basophils % 0.1 % Basophils # 0.0 10^3/uL Sodium Level 136 mmol/L Potassium Level 3.5 mmol/L Chloride Level 103.0 mmol/L Carbon Dioxide Level 24.3 mmol/L Anion Gap 12.2 Blood Urea Nitrogen 20 mg/dL Creatinine 1.01 mg/dL Estimated GFR () 90.0 Est GFR (CKD-EPI)(Non-Afr Dutch) 74.4 BUN/Creatinine Ratio 19.0 Glucose Level 104 mg/dL Calcium Level 8.1 mg/dL Phosphorus Level 2.5 mg/dL Magnesium Level 2.2 mg/dL Total Bilirubin 0.5 mg/dL Aspartate Amino Transf (AST/SGOT) 46 U/L Alanine Aminotransferase (ALT/SGPT) 29 U/L Alkaline Phosphatase 38 U/L Total Protein 6.1 g/dL Albumin 2.1 g/dL Globulin 4.0 Albumin/Globulin Ratio 0.525 Bedside Glucose 99 95 Nasal Adenovirus (PCR) NotDetected Nasal Coronavirus Type 229E (PCR) NotDetected Nasal Coronavirus Type HKU1 (PCR) NotDetected Nasal Coronavirus Type NL63 (PCR) NotDetected Nasal Coronavirus Type OC43 (PCR) NotDetected Nasal Enterovirus/Rhinovirus (PCR) NotDetected Nasal Influenza Type A (H1) (PCR) NotDetected Nasal Influenza Type A (H3) (PCR) NotDetected Nasal Swab Influenza Virus B (PCR) NotDetected Nasal Parainfluenza Type 1 (PCR) NotDetected Nasal Parainfluenza Type 2 (PCR) NotDetected Nasal Parainfluenza Type 3 (PCR) NotDetected Nasal Parainfluenza Type 4 (PCR) NotDetected Nasal Resp Syncytial Virus (PCR) NotDetected Nasal Bordetella pertussis DNA (PCR NotDetected Nasal Chlamydophila pneumoniae (PCR NotDetected Nasal Human Metapneumovirus (PCR) NotDetected Nasal Mycoplasma pneumoniae (PCR) NotDetected Nasal SARS-CoV-2 (PCR) DETECTED Influenza Type A (H1N1/09) (PCR) NotDetected Test 09/05/20 10:24 09/05/20 12:44 09/05/20 17:15 09/05/20 19:49 Erythrocyte Sedimentation Rate 78 mm/hr C-Reactive Protein 13.99 mg/dL Anti-Nuclear FA Antibody Screen Negative Anti-Nuclear Ab Homogeneous Pattern Anti-Nuclear Ab Nucleolar Pattern Anti-Nuclear Ab Speckled Pattern Anti-Nuclear Ab Centromere Pattern Anti-Nuclear Antibody Comment Cytoplasmic ANCA (c-ANCA) Antibody <1:20 titer Atypical p-ANCA <1:20 titer Perinuclear ANCA (p-ANCA) Antibody <1:20 titer HIV-1 Antibody NON-REACTIVE HIV-2 Antibody NON-REACTIVE Bedside Glucose 88 154 141 Test 09/06/20 04:09 09/06/20 05:29 09/06/20 11:39 09/06/20 16:09 White Blood Count 7.7 10^3/uL Red Blood Count 4.20 10^6/uL Hemoglobin 12.5 g/dL Hematocrit 35.4 % Mean Corpuscular Volume 84.3 fL Mean Corpuscular Hemoglobin 29.8 pg Mean Corpuscular Hemoglobin Concent 35.3 g/dL Red Cell Distribution Width 11.9 % Platelet Count 208 10^3/uL Mean Platelet Volume 10.4 fL Neutrophils (%) (Auto) 82.7 % Lymphocytes (%) (Auto) 8.5 % Monocytes (%) (Auto) 7.8 % Neutrophils # (Auto) 6.3 10^3/uL Lymphocytes # (Auto) 0.65 10^3/uL1 Monocytes # (Auto) 0.6 10^3/uL Absolute Immature Granulocyte (auto 0.04 10^3 u/L Absolute Eosinophils (auto) 0.0 10^3/uL Immature Granulocytes % 0.50 % Eosinophils % 0.1 % Basophils % 0.4 % Basophils # 0.0 10^3/uL Sodium Level 137 mmol/L Potassium Level 3.5 mmol/L Chloride Level 104.0 mmol/L Carbon Dioxide Level 23.9 mmol/L Anion Gap 12.6 Blood Urea Nitrogen 17 mg/dL Creatinine 0.94 mg/dL Estimated GFR () 97.8 Est GFR (CKD-EPI)(Non-Afr Dutch) 80.8 BUN/Creatinine Ratio 18.0 Glucose Level 181 mg/dL Calcium Level 8.0 mg/dL Phosphorus Level 3.2 mg/dL Magnesium Level 2.2 mg/dL Total Bilirubin 0.5 mg/dL Aspartate Amino Transf (AST/SGOT) 45 U/L Alanine Aminotransferase (ALT/SGPT) 28 U/L Alkaline Phosphatase 38 U/L Total Protein 5.9 g/dL Albumin 1.8 g/dL Globulin 4.1 Albumin/Globulin Ratio 0.439 Bedside Glucose 166 133 192 Test 09/06/20 19:56 09/07/20 05:22 09/07/20 07:46 09/07/20 10:47 Bedside Glucose 190 181 222 238 Test 09/07/20 17:34 09/07/20 17:36 09/07/20 18:20 09/07/20 18:59 Bedside Glucose 220 236 Blood Gas Sample Site RR Blood Gas pH 7.403 Blood Gas PCO2 30.6 mmHg Blood Gas PO2 62.4 mmHg Blood Gas HCO3 18.7 mmol/L Blood Gas Base Excess -4.8 mmol/L Abdi Test POSITIVE Arterial Blood Oxygen Saturation 92.1 % Deoxyhemoglobin 7.8 % Carboxyhemoglobin 0.7 % Methemoglobin 0.2 % Total Hemoglobin 14.6 % Total Oxygen Concentration 18.7 % Blood Gas Temperature 37.0 Oxygen Delivery Method (LAB) NON-REBREATHER MASK FiO2 100 % Total Carbon Dioxide 19.6 mmol/L Hemoglobin 14.0 g/dL Hematocrit 40.0 % Platelet Count 386 10^3/uL Prothrombin Time 11.2 SEC Prothrombin Time INR (Non-Therap) 1.1 Fibrinogen > 450 mg/dL Test 09/07/20 20:18 09/08/20 05:14 09/08/20 05:20 09/08/20 06:57 Bedside Glucose 226 204 White Blood Count 11.7 10^3/uL Red Blood Count 4.60 10^6/uL Hemoglobin 13.4 g/dL Hematocrit 38.5 % Mean Corpuscular Volume 83.7 fL Mean Corpuscular Hemoglobin 29.1 pg Mean Corpuscular Hemoglobin Concent 34.8 g/dL Red Cell Distribution Width 12.0 % Platelet Count 360 10^3/uL Mean Platelet Volume 9.7 fL Neutrophils (%) (Auto) 89.4 % Lymphocytes (%) (Auto) 4.8 % Monocytes (%) (Auto) 4.9 % Neutrophils # (Auto) 10.5 10^3/uL Lymphocytes # (Auto) 0.56 10^3/uL1 Monocytes # (Auto) 0.6 10^3/uL Absolute Immature Granulocyte (auto 0.08 10^3 u/L Absolute Eosinophils (auto) 0.0 10^3/uL Immature Granulocytes % 0.70 % Eosinophils % 0.0 % Basophils % 0.2 % Basophils # 0.0 10^3/uL D-Dimer 4.40 mg/L Sodium Level 139 mmol/L Potassium Level 3.4 mmol/L Chloride Level 108.0 mmol/L Carbon Dioxide Level 21.4 mmol/L Anion Gap 13.0 Blood Urea Nitrogen 22 mg/dL Creatinine 0.87 mg/dL Estimated GFR () 106.9 Est GFR (CKD-EPI)(Non-Afr Dutch) 88.3 BUN/Creatinine Ratio 25.0 Glucose Level 214 mg/dL Calcium Level 8.1 mg/dL Phosphorus Level 2.2 mg/dL Magnesium Level 2.2 mg/dL Ferritin 1364 ng/mL Total Bilirubin 0.3 mg/dL Aspartate Amino Transf (AST/SGOT) 44 U/L Alanine Aminotransferase (ALT/SGPT) 23 U/L Alkaline Phosphatase 45 U/L Lactate Dehydrogenase 300 U/L Total Creatine Kinase 48 U/L C-Reactive Protein 3.22 mg/dL Total Protein 5.9 g/dL Albumin 2.0 g/dL Globulin 3.9 Albumin/Globulin Ratio 0.512 Procalcitonin 0.29 ng/mL Segmented Neutrophils 95 % Lymphocytes 4 % Monocytes 1 % Platelet Estimate ADEQUATE Platelet Morphology NORMAL Test 09/08/20 07:39 09/08/20 11:31 09/08/20 16:25 09/08/20 20:15 Bedside Glucose 223 208 183 217 Test 09/09/20 05:05 09/09/20 06:31 09/09/20 07:23 09/09/20 07:39 Bedside Glucose 169 231 White Blood Count 11.5 10^3/uL Red Blood Count 4.52 10^6/uL Hemoglobin 13.1 g/dL Hematocrit 37.4 % Mean Corpuscular Volume 82.7 fL Mean Corpuscular Hemoglobin 29.0 pg Mean Corpuscular Hemoglobin Concent 35.0 g/dL Red Cell Distribution Width 12.0 % Platelet Count 367 10^3/uL Mean Platelet Volume 9.2 fL Neutrophils (%) (Auto) 87.0 % Lymphocytes (%) (Auto) 5.3 % Monocytes (%) (Auto) 7.0 % Neutrophils # (Auto) 10.0 10^3/uL Lymphocytes # (Auto) 0.61 10^3/uL1 Monocytes # (Auto) 0.8 10^3/uL Absolute Immature Granulocyte (auto 0.07 10^3 u/L Absolute Eosinophils (auto) 0.0 10^3/uL Immature Granulocytes % 0.60 % Eosinophils % 0.0 % Basophils % 0.1 % Basophils # 0.0 10^3/uL Sodium Level 141 mmol/L Potassium Level 3.9 mmol/L Chloride Level 109.0 mmol/L Carbon Dioxide Level 22.4 mmol/L Anion Gap 13.5 Blood Urea Nitrogen 22 mg/dL Creatinine 0.81 mg/dL Estimated GFR () 116.1 Est GFR (CKD-EPI)(Non-Afr Dutch) 95.9 BUN/Creatinine Ratio 27.0 Glucose Level 187 mg/dL Calcium Level 7.9 mg/dL Phosphorus Level 2.7 mg/dL Magnesium Level 2.0 mg/dL Total Bilirubin 0.4 mg/dL Aspartate Amino Transf (AST/SGOT) 32 U/L Alanine Aminotransferase (ALT/SGPT) 29 U/L Alkaline Phosphatase 44 U/L Total Protein 5.5 g/dL Albumin 2.0 g/dL Globulin 3.5 Albumin/Globulin Ratio 0.571 Segmented Neutrophils 91 % Lymphocytes 5 % Monocytes 4 % Platelet Estimate ADEQUATE Platelet Morphology NORMAL Test 09/09/20 11:15 09/09/20 16:50 09/09/20 19:54 09/10/20 04:26 Bedside Glucose 236 192 219 White Blood Count 11.8 10^3/uL Red Blood Count 4.77 10^6/uL Hemoglobin 13.8 g/dL Hematocrit 39.8 % Mean Corpuscular Volume 83.4 fL Mean Corpuscular Hemoglobin 28.9 pg Mean Corpuscular Hemoglobin Concent 34.7 g/dL Red Cell Distribution Width 12.3 % Platelet Count 361 10^3/uL Mean Platelet Volume 9.2 fL Neutrophils (%) (Auto) 84.0 % Lymphocytes (%) (Auto) 9.0 % Monocytes (%) (Auto) 4.8 % Neutrophils # (Auto) 9.9 10^3/uL Lymphocytes # (Auto) 1.06 10^3/uL1 Monocytes # (Auto) 0.6 10^3/uL Absolute Immature Granulocyte (auto 0.23 10^3 u/L Absolute Eosinophils (auto) 0.0 10^3/uL Immature Granulocytes % 2.00 % Eosinophils % 0.1 % Basophils % 0.1 % Basophils # 0.0 10^3/uL D-Dimer 8.09 mg/L Sodium Level 140 mmol/L Potassium Level 3.7 mmol/L Chloride Level 106.0 mmol/L Carbon Dioxide Level 27.2 mmol/L Anion Gap 10.5 Blood Urea Nitrogen 19 mg/dL Creatinine 0.96 mg/dL Estimated GFR () 95.4 Est GFR (CKD-EPI)(Non-Afr Dutch) 78.9 BUN/Creatinine Ratio 19.0 Glucose Level 100 mg/dL Calcium Level 7.9 mg/dL Phosphorus Level 2.4 mg/dL Magnesium Level 1.8 mg/dL Ferritin 1073 ng/mL Total Bilirubin 0.7 mg/dL Aspartate Amino Transf (AST/SGOT) 27 U/L Alanine Aminotransferase (ALT/SGPT) 29 U/L Alkaline Phosphatase 58 U/L Lactate Dehydrogenase 295 U/L Total Creatine Kinase 41 U/L C-Reactive Protein 3.25 mg/dL Total Protein 5.7 g/dL Albumin 2.0 g/dL Globulin 3.7 Albumin/Globulin Ratio 0.540 Procalcitonin 0.10 ng/mL Test 09/10/20 04:54 09/10/20 07:10 09/10/20 11:33 09/10/20 16:46 Bedside Glucose 93 134 173 178 Test 09/10/20 19:51 09/11/20 01:56 09/11/20 02:03 09/11/20 05:13 Bedside Glucose 169 159 145 Blood Gas Sample Site LB Blood Gas pH 7.398 Blood Gas PCO2 31.4 mmHg Blood Gas PO2 54.5 mmHg Blood Gas HCO3 18.9 mmol/L Blood Gas Base Excess -4.8 mmol/L Abdi Test POSITIVE Arterial Blood Oxygen Saturation 87.1 % Deoxyhemoglobin 12.9 % Carboxyhemoglobin 0.3 % Methemoglobin 0.0 % Total Hemoglobin 13.4 % Total Oxygen Concentration 16.3 % Blood Gas Temperature 37 Oxygen Delivery Method (LAB) NON-REBREATHER MASK FiO2 100 % Total Carbon Dioxide 19.9 mmol/L Test 09/11/20 05:14 09/11/20 05:41 09/11/20 07:35 09/11/20 07:50 White Blood Count 11.5 10^3/uL Red Blood Count 4.66 10^6/uL Hemoglobin 13.4 g/dL Hematocrit 39.1 % Mean Corpuscular Volume 83.9 fL Mean Corpuscular Hemoglobin 28.8 pg Mean Corpuscular Hemoglobin Concent 34.3 g/dL Red Cell Distribution Width 12.2 % Platelet Count 296 10^3/uL Mean Platelet Volume 9.2 fL Neutrophils (%) (Auto) 87.0 % Lymphocytes (%) (Auto) 5.9 % Monocytes (%) (Auto) 5.0 % Neutrophils # (Auto) 10.0 10^3/uL Lymphocytes # (Auto) 0.68 10^3/uL1 Monocytes # (Auto) 0.6 10^3/uL Absolute Immature Granulocyte (auto 0.23 10^3 u/L Absolute Eosinophils (auto) 0.0 10^3/uL Immature Granulocytes % 2.00 % Eosinophils % 0.0 % Basophils % 0.1 % Basophils # 0.0 10^3/uL Sodium Level 139 mmol/L Potassium Level 3.9 mmol/L Chloride Level 106.0 mmol/L Carbon Dioxide Level 23.2 mmol/L Anion Gap 13.7 Blood Urea Nitrogen 22 mg/dL Creatinine 0.88 mg/dL Estimated GFR () 105.5 Est GFR (CKD-EPI)(Non-Afr Dutch) 87.2 BUN/Creatinine Ratio 25.0 Glucose Level 151 mg/dL Calcium Level 8.3 mg/dL Phosphorus Level 3.1 mg/dL Magnesium Level 2.3 mg/dL Total Bilirubin 0.7 mg/dL Aspartate Amino Transf (AST/SGOT) 27 U/L Alanine Aminotransferase (ALT/SGPT) 23 U/L Alkaline Phosphatase 71 U/L Total Protein 5.7 g/dL Albumin 2.0 g/dL Globulin 3.7 Albumin/Globulin Ratio 0.540 Blood Gas Sample Site RT RADIAL ARTERY RR Blood Gas pH 7.405 7.398 Blood Gas PCO2 35.2 mmHg 36.1 mmHg Blood Gas PO2 53.5 mmHg 52.5 mmHg Blood Gas HCO3 21.6 mmol/L 21.8 mmol/L Blood Gas Base Excess -2.5 mmol/L -2.5 mmol/L Abdi Test POSITIVE POSITIVE Arterial Blood Oxygen Saturation 87.9 % 86.0 % Deoxyhemoglobin 12.1 % 13.9 % Carboxyhemoglobin 0 % 0.6 % Methemoglobin 0.1 % 0.3 % Total Hemoglobin 14.0 % 13.9 % Total Oxygen Concentration 17.3 % 16.6 % Blood Gas Temperature 37 37 Oxygen Delivery Method (LAB) NON-REBREATHER MASK NON-REBREATHER MASK FiO2 100 % 100 % Total Carbon Dioxide 22.6 mmol/L 22.9 mmol/L Bedside Glucose 133 Test 09/11/20 11:42 09/11/20 16:15 09/11/20 20:50 09/12/20 04:11 Bedside Glucose 185 175 201 White Blood Count 16.3 10^3/uL Red Blood Count 4.45 10^6/uL Hemoglobin 13.2 g/dL Hematocrit 37.1 % Mean Corpuscular Volume 83.4 fL Mean Corpuscular Hemoglobin 29.7 pg Mean Corpuscular Hemoglobin Concent 35.6 g/dL Red Cell Distribution Width 12.3 % Platelet Count 316 10^3/uL Mean Platelet Volume 9.2 fL Neutrophils (%) (Auto) 89.5 % Lymphocytes (%) (Auto) 3.9 % Monocytes (%) (Auto) 5.0 % Neutrophils # (Auto) 14.6 10^3/uL Lymphocytes # (Auto) 0.64 10^3/uL1 Monocytes # (Auto) 0.8 10^3/uL Absolute Immature Granulocyte (auto 0.24 10^3 u/L Absolute Eosinophils (auto) 0.0 10^3/uL Immature Granulocytes % 1.50 % Eosinophils % 0.0 % Basophils % 0.1 % Basophils # 0.0 10^3/uL Sodium Level 139 mmol/L Potassium Level 4.1 mmol/L Chloride Level 105.0 mmol/L Carbon Dioxide Level 26.4 mmol/L Anion Gap 11.7 Blood Urea Nitrogen 24 mg/dL Creatinine 0.82 mg/dL Estimated GFR () 114.5 Est GFR (CKD-EPI)(Non-Afr Dutch) 94.6 BUN/Creatinine Ratio 29.0 Glucose Level 144 mg/dL Calcium Level 8.3 mg/dL Total Bilirubin 0.6 mg/dL Aspartate Amino Transf (AST/SGOT) 24 U/L Alanine Aminotransferase (ALT/SGPT) 19 U/L Alkaline Phosphatase 69 U/L Total Protein 5.6 g/dL Albumin 2.0 g/dL Globulin 3.6 Albumin/Globulin Ratio 0.555 Test 09/12/20 05:21 09/12/20 07:14 09/12/20 11:45 09/12/20 15:44 Bedside Glucose 132 173 262 Blood Gas Sample Site RR Blood Gas pH 7.429 Blood Gas PCO2 33.6 mmHg Blood Gas PO2 47.2 mmHg Blood Gas HCO3 21.8 mmol/L Blood Gas Base Excess -1.7 mmol/L Abdi Test POSITIVE Arterial Blood Oxygen Saturation 82.7 % Deoxyhemoglobin 17.1 % Carboxyhemoglobin 0.9 % Methemoglobin 0.3 % Total Hemoglobin 15.0 % Total Oxygen Concentration 17.2 % Blood Gas Temperature 37 Oxygen Delivery Method (LAB) NON-REBREATHER MASK FiO2 100 % Total Carbon Dioxide 22.8 mmol/L Test 09/12/20 21:13 09/13/20 04:13 09/13/20 07:45 09/13/20 12:57 Bedside Glucose 202 195 White Blood Count 13.7 10^3/uL Red Blood Count 4.63 10^6/uL Hemoglobin 13.4 g/dL Hematocrit 38.7 % Mean Corpuscular Volume 83.6 fL Mean Corpuscular Hemoglobin 28.9 pg Mean Corpuscular Hemoglobin Concent 34.6 g/dL Red Cell Distribution Width 12.4 % Platelet Count 132 10^3/uL Mean Platelet Volume 10.4 fL Neutrophils (%) (Auto) 89.9 % Lymphocytes (%) (Auto) 4.0 % Monocytes (%) (Auto) 4.7 % Neutrophils # (Auto) 12.3 10^3/uL Lymphocytes # (Auto) 0.55 10^3/uL1 Monocytes # (Auto) 0.6 10^3/uL Absolute Immature Granulocyte (auto 0.18 10^3 u/L Absolute Eosinophils (auto) 0.0 10^3/uL Immature Granulocytes % 1.30 % Eosinophils % 0.0 % Basophils % 0.1 % Basophils # 0.0 10^3/uL D-Dimer 6.10 mg/L Sodium Level 134 mmol/L Potassium Level 3.9 mmol/L Chloride Level 101.0 mmol/L Carbon Dioxide Level 24.6 mmol/L Anion Gap 12.3 Blood Urea Nitrogen 21 mg/dL Creatinine 0.83 mg/dL Estimated GFR () 112.9 Est GFR (CKD-EPI)(Non-Afr Dutch) 93.3 BUN/Creatinine Ratio 25.0 Glucose Level 163 mg/dL Calcium Level 8.1 mg/dL Total Bilirubin 0.6 mg/dL Aspartate Amino Transf (AST/SGOT) 25 U/L Alanine Aminotransferase (ALT/SGPT) 18 U/L Alkaline Phosphatase 65 U/L Ammonia 32 umol/L Pro-B-Type Natriuretic Peptide 1380 pg/mL Total Protein 5.6 g/dL Albumin 1.9 g/dL Globulin 3.7 Albumin/Globulin Ratio 0.513 Blood Gas Sample Site RR Blood Gas pH 7.410 Blood Gas PCO2 47.1 mmHg Blood Gas PO2 55.4 mmHg Blood Gas HCO3 25.9 mmol/L Blood Gas Base Excess 1.1 mmol/L Abdi Test POSITIVE Arterial Blood Oxygen Saturation 87.4 % Deoxyhemoglobin 12.5 % Carboxyhemoglobin 0.8 % Methemoglobin 0.2 % Total Hemoglobin 13.9 % Total Oxygen Concentration 16.9 % Oxygen Delivery Method (LAB) BIPAP Blood Gas Vent Mode AVAPS Blood Gas Vent Rate 14 FiO2 100 % Blood Gas Tidal Volume 400 ML Blood Gas PEEP 8 CMH2O Total Carbon Dioxide 27.2 mmol/L Test 09/13/20 13:06 09/13/20 14:10 09/13/20 16:18 09/13/20 17:19 Blood Gas Sample Site RR Blood Gas pH 7.388 Blood Gas PCO2 52.0 mmHg Blood Gas PO2 52.0 mmHg Blood Gas HCO3 22.7 mmol/L Blood Gas Base Excess -1.9 mmol/L Abdi Test POSITIVE Arterial Blood Oxygen Saturation 83.6 % Carboxyhemoglobin 0 % Methemoglobin 0.2 % Total Hemoglobin 14.7 % Blood Gas Temperature 37 Oxygen Delivery Method (LAB) VENT Blood Gas Vent Mode ACVC Blood Gas Vent Rate 25 FiO2 100 % Blood Gas Tidal Volume 400 ML Blood Gas PEEP 6 CMH2O Total Carbon Dioxide 23.9 mmol/L Urine Collection Type UNKNOWN Urine Color YELLOW Urine Appearance CLEAR Urine Bilirubin NEGATIVE MG/DL Urine Ketones NEGATIVE Urine Specific [place] 1.010 Urine pH 6.5 Urine Protein NEGATIVE Urine Urobilinogen NORMAL Urine Nitrate NEGATIVE Urine Leukocyte Esterase NEGATIVE Urine Blood NEGATIVE Urine Glucose 100 Procalcitonin 0.26 ng/mL Bedside Glucose 243 Test 09/13/20 23:38 09/14/20 03:53 09/14/20 05:21 09/14/20 08:30 Bedside Glucose 137 184 White Blood Count 15.2 10^3/uL Red Blood Count 4.89 10^6/uL Hemoglobin 14.3 g/dL Hematocrit 41.5 % Mean Corpuscular Volume 84.9 fL Mean Corpuscular Hemoglobin 29.2 pg Mean Corpuscular Hemoglobin Concent 34.5 g/dL Red Cell Distribution Width 12.9 % Platelet Count 260 10^3/uL Mean Platelet Volume 10.3 fL Neutrophils (%) (Auto) 92.6 % Lymphocytes (%) (Auto) 3.0 % Monocytes (%) (Auto) 2.5 % Neutrophils # (Auto) 14.1 10^3/uL Lymphocytes # (Auto) 0.45 10^3/uL1 Monocytes # (Auto) 0.4 10^3/uL Absolute Immature Granulocyte (auto 0.27 10^3 u/L Absolute Eosinophils (auto) 0.0 10^3/uL Immature Granulocytes % 1.80 % Eosinophils % 0.0 % Basophils % 0.1 % Basophils # 0.0 10^3/uL Sodium Level 141 mmol/L Potassium Level 4.6 mmol/L Chloride Level 105.0 mmol/L Carbon Dioxide Level 24.2 mmol/L Anion Gap 16.4 Blood Urea Nitrogen 34 mg/dL Creatinine 1.14 mg/dL Estimated GFR () 78.3 Est GFR (CKD-EPI)(Non-Afr [place]) 64.7 BUN/Creatinine Ratio 29.0 Glucose Level 179 mg/dL Calcium Level 8.2 mg/dL Total Bilirubin 0.6 mg/dL Aspartate Amino Transf (AST/SGOT) 19 U/L Alanine Aminotransferase (ALT/SGPT) 16 U/L Alkaline Phosphatase 61 U/L Total Protein 5.8 g/dL Albumin 2.0 g/dL Globulin 3.8 Albumin/Globulin Ratio 0.526 Blood Gas Sample Site RT RADIAL ARTERY Blood Gas pH 7.377 Blood Gas PCO2 39.9 mmHg Blood Gas PO2 55.2 mmHg Blood Gas HCO3 22.9 mmol/L Blood Gas Base Excess -2.0 mmol/L Abdi Test POSITIVE Arterial Blood Oxygen Saturation 85.5 % Deoxyhemoglobin 14.4 % Carboxyhemoglobin 0.7 % Methemoglobin 0.2 % Total Hemoglobin 15.1 % Total Oxygen Concentration 18.0 % Blood Gas Temperature 37 Oxygen Delivery Method (LAB) VENT Blood Gas Vent Mode ACVC Blood Gas Vent Rate 25 FiO2 100 % Blood Gas Tidal Volume 400 ML Blood Gas PEEP 10 CMH2O Total Carbon Dioxide 24.1 mmol/L Test 09/14/20 12:01 09/14/20 15:20 09/14/20 17:42 09/15/20 00:20 Bedside Glucose 201 232 283 Lactic Acid Level 1.3 mmol/L Test 09/15/20 04:09 09/15/20 05:49 09/15/20 05:50 09/15/20 08:02 White Blood Count 16.8 10^3/uL Red Blood Count 4.60 10^6/uL Hemoglobin 13.4 g/dL Hematocrit 39.6 % Mean Corpuscular Volume 86.1 fL Mean Corpuscular Hemoglobin 29.1 pg Mean Corpuscular Hemoglobin Concent 33.8 g/dL Red Cell Distribution Width 13.1 % Platelet Count 355 10^3/uL Mean Platelet Volume 9.9 fL Neutrophils (%) (Auto) 92.1 % Lymphocytes (%) (Auto) 2.5 % Monocytes (%) (Auto) 3.7 % Neutrophils # (Auto) 15.5 10^3/uL Lymphocytes # (Auto) 0.42 10^3/uL1 Monocytes # (Auto) 0.6 10^3/uL Absolute Immature Granulocyte (auto 0.28 10^3 u/L Absolute Eosinophils (auto) 0.0 10^3/uL Immature Granulocytes % 1.70 % Eosinophils % 0.0 % Basophils % 0.0 % Basophils # 0.0 10^3/uL Sodium Level 139 mmol/L Potassium Level 4.1 mmol/L Chloride Level 105.0 mmol/L Carbon Dioxide Level 23.9 mmol/L Anion Gap 14.2 Blood Urea Nitrogen 52 mg/dL Creatinine 1.34 mg/dL Estimated GFR () 64.9 Est GFR (CKD-EPI)(Non-Afr Dutch) 53.7 BUN/Creatinine Ratio 38.0 Glucose Level 305 mg/dL Calcium Level 7.1 mg/dL Total Bilirubin 0.4 mg/dL Aspartate Amino Transf (AST/SGOT) 17 U/L Alanine Aminotransferase (ALT/SGPT) 17 U/L Alkaline Phosphatase 65 U/L C-Reactive Protein 3.29 mg/dL Total Protein 5.6 g/dL Albumin 2.0 g/dL Globulin 3.6 Albumin/Globulin Ratio 0.555 Bedside Glucose 276 Segmented Neutrophils 98 % Lymphocytes 1 % Monocytes 1 % Platelet Estimate ADEQUATE Platelet Morphology NORMAL Blood Gas Sample Site ART LINE Blood Gas pH 7.335 Blood Gas PCO2 42.5 mmHg Blood Gas PO2 72.2 mmHg Blood Gas HCO3 22.2 mmol/L Blood Gas Base Excess -3.6 mmol/L Abdi Test POSITIVE Arterial Blood Oxygen Saturation 93.1 % Deoxyhemoglobin 6.8 % Carboxyhemoglobin 0.6 % Methemoglobin 0.3 % Total Hemoglobin 13.6 % Total Oxygen Concentration 17.7 % Blood Gas Temperature 37 Oxygen Delivery Method (LAB) VENT Blood Gas Vent Mode ACVC Blood Gas Vent Rate 25 FiO2 100 % Blood Gas Tidal Volume 400 ML Blood Gas PEEP 12 CMH2O Total Carbon Dioxide 23.5 mmol/L Test 09/15/20 11:39 09/15/20 15:05 09/15/20 17:08 09/15/20 20:08 Bedside Glucose 294 288 260 Procalcitonin 0.15 ng/mL Test 09/15/20 23:59 09/16/20 04:23 09/16/20 05:22 09/16/20 05:42 Bedside Glucose 284 278 White Blood Count 15.2 10^3/uL Red Blood Count 4.03 10^6/uL Hemoglobin 11.7 g/dL Hematocrit 35.3 % Mean Corpuscular Volume 87.6 fL Mean Corpuscular Hemoglobin 29.0 pg Mean Corpuscular Hemoglobin Concent 33.1 g/dL Red Cell Distribution Width 13.1 % Platelet Count 234 10^3/uL Mean Platelet Volume 10.2 fL Neutrophils (%) (Auto) 94.0 % Lymphocytes (%) (Auto) 1.8 % Monocytes (%) (Auto) 3.0 % Neutrophils # (Auto) 14.3 10^3/uL Lymphocytes # (Auto) 0.28 10^3/uL1 Monocytes # (Auto) 0.5 10^3/uL Absolute Immature Granulocyte (auto 0.16 10^3 u/L Absolute Eosinophils (auto) 0.0 10^3/uL Immature Granulocytes % 1.10 % Eosinophils % 0.0 % Basophils % 0.1 % Basophils # 0.0 10^3/uL D-Dimer 1.67 mg/L Sodium Level 140 mmol/L Potassium Level 4.9 mmol/L Chloride Level 107.0 mmol/L Carbon Dioxide Level 24.8 mmol/L Anion Gap 13.1 Blood Urea Nitrogen 50 mg/dL Creatinine 1.14 mg/dL Estimated GFR () 78.3 Est GFR (CKD-EPI)(Non-Afr Dutch) 64.7 BUN/Creatinine Ratio 43.0 Glucose Level 313 mg/dL Calcium Level 7.0 mg/dL Total Bilirubin 0.3 mg/dL Aspartate Amino Transf (AST/SGOT) 16 U/L Alanine Aminotransferase (ALT/SGPT) 16 U/L Alkaline Phosphatase 68 U/L Total Protein 4.9 g/dL Albumin 1.8 g/dL Globulin 3.1 Albumin/Globulin Ratio 0.580 Blood Gas Sample Site ART LINE Blood Gas pH 7.310 Blood Gas PCO2 46.1 mmHg Blood Gas PO2 61.6 mmHg Blood Gas HCO3 22.7 mmol/L Blood Gas Base Excess -3.7 mmol/L Abdi Test N/A Arterial Blood Oxygen Saturation 89.2 % Deoxyhemoglobin 10.7 % Carboxyhemoglobin 0.3 % Methemoglobin 0.3 % Total Hemoglobin 13.4 % Total Oxygen Concentration 16.7 % Blood Gas Temperature 37 Oxygen Delivery Method (LAB) VENT Blood Gas Vent Mode ACVC Blood Gas Vent Rate 25 FiO2 75 % Blood Gas Tidal Volume 400 ML Blood Gas PEEP 10 CMH2O Total Carbon Dioxide 24.1 mmol/L Test 09/16/20 06:16 09/16/20 12:17 09/16/20 13:15 09/16/20 17:13 Segmented Neutrophils 97 % Lymphocytes 1 % Monocytes 2 % Platelet Estimate ADEQUATE Platelet Morphology NORMAL Bedside Glucose 222 170 Procalcitonin 0.05 ng/mL Test 09/16/20 21:21 09/17/20 00:03 09/17/20 03:50 09/17/20 04:10 Bedside Glucose 186 221 235 White Blood Count 17.5 10^3/uL Red Blood Count 4.13 10^6/uL Hemoglobin 11.8 g/dL Hematocrit 36.6 % Mean Corpuscular Volume 88.6 fL Mean Corpuscular Hemoglobin 28.6 pg Mean Corpuscular Hemoglobin Concent 32.2 g/dL Red Cell Distribution Width 13.0 % Platelet Count 217 10^3/uL Mean Platelet Volume 9.7 fL Neutrophils (%) (Auto) 93.7 % Lymphocytes (%) (Auto) 1.3 % Monocytes (%) (Auto) 4.1 % Neutrophils # (Auto) 16.4 10^3/uL Lymphocytes # (Auto) 0.22 10^3/uL1 Monocytes # (Auto) 0.7 10^3/uL Absolute Immature Granulocyte (auto 0.16 10^3 u/L Absolute Eosinophils (auto) 0.0 10^3/uL Immature Granulocytes % 0.90 % Eosinophils % 0.0 % Basophils % 0.0 % Basophils # 0.0 10^3/uL Sodium Level 141 mmol/L Potassium Level 5.2 mmol/L Chloride Level 109.0 mmol/L Carbon Dioxide Level 26.2 mmol/L Anion Gap 11.0 Blood Urea Nitrogen 56 mg/dL Creatinine 1.02 mg/dL Estimated GFR () 89.0 Est GFR (CKD-EPI)(Non-Afr Dutch) 73.5 BUN/Creatinine Ratio 54.0 Glucose Level 242 mg/dL Calcium Level 7.4 mg/dL Total Bilirubin 0.3 mg/dL Aspartate Amino Transf (AST/SGOT) 19 U/L Alanine Aminotransferase (ALT/SGPT) 20 U/L Alkaline Phosphatase 68 U/L Total Protein 4.6 g/dL Albumin 1.9 g/dL Globulin 2.7 Albumin/Globulin Ratio 0.703 Test 09/17/20 04:22 09/17/20 05:51 09/17/20 06:25 09/17/20 09:10 Segmented Neutrophils 96 % Lymphocytes 1 % Monocytes 3 % Platelet Estimate ADEQUATE Platelet Morphology NORMAL Bedside Glucose 244 Blood Gas Sample Site ARTERIAL LINE Blood Gas pH 7.303 Blood Gas PCO2 45.2 mmHg Blood Gas PO2 61.0 mmHg Blood Gas HCO3 21.9 mmol/L Blood Gas Base Excess -4.4 mmol/L Abdi Test N/A Arterial Blood Oxygen Saturation 89.1 % Deoxyhemoglobin 10.8 % Carboxyhemoglobin 0.3 % Methemoglobin 0.3 % Total Hemoglobin 12.6 % Total Oxygen Concentration 15.7 % Blood Gas Temperature 37 Oxygen Delivery Method (LAB) VENT Blood Gas Vent Mode AC Blood Gas Vent Rate 25 FiO2 90 % Blood Gas Tidal Volume 400 ML Blood Gas PEEP 10 CMH2O Total Carbon Dioxide 23.3 mmol/L Ammonia 36 umol/L Test 09/17/20 10:45 09/17/20 16:08 09/17/20 16:41 09/17/20 20:00 Bedside Glucose 218 186 175 Sodium Level 138 mmol/L Potassium Level 5.0 mmol/L Chloride Level 106.0 mmol/L Carbon Dioxide Level 24.6 mmol/L Glucose Level 209 mg/dL Blood Urea Nitrogen 62 mg/dL Creatinine 1.29 mg/dL Calcium Level 7.1 mg/dL Anion Gap 12.4 Estimated GFR () 67.8 Est GFR (CKD-EPI)(Non-Afr Dutch) 56.1 BUN/Creatinine Ratio 48.0 Test 09/17/20 23:51 09/18/20 04:14 09/18/20 05:38 09/18/20 07:47 Bedside Glucose 135 173 White Blood Count 20.4 10^3/uL Red Blood Count 4.32 10^6/uL Hemoglobin 12.5 g/dL Hematocrit 38.3 % Mean Corpuscular Volume 88.7 fL Mean Corpuscular Hemoglobin 28.9 pg Mean Corpuscular Hemoglobin Concent 32.6 g/dL Red Cell Distribution Width 13.2 % Platelet Count 202 10^3/uL Mean Platelet Volume 10.0 fL Neutrophils (%) (Auto) 86.3 % Lymphocytes (%) (Auto) 4.3 % Monocytes (%) (Auto) 5.5 % Neutrophils # (Auto) 17.6 10^3/uL Lymphocytes # (Auto) 0.87 10^3/uL1 Monocytes # (Auto) 1.1 10^3/uL Absolute Immature Granulocyte (auto 0.74 10^3 u/L Absolute Eosinophils (auto) 0.1 10^3/uL Immature Granulocytes % 3.60 % Eosinophils % 0.3 % Basophils % 0.0 % Basophils # 0.0 10^3/uL Sodium Level 141 mmol/L Potassium Level 4.4 mmol/L Chloride Level 107.0 mmol/L Carbon Dioxide Level 25.2 mmol/L Anion Gap 13.2 Blood Urea Nitrogen 62 mg/dL Creatinine 1.21 mg/dL Estimated GFR () 73.1 Est GFR (CKD-EPI)(Non-Afr Dutch) 60.4 BUN/Creatinine Ratio 51.0 Glucose Level 129 mg/dL Calcium Level 7.0 mg/dL Total Bilirubin 0.3 mg/dL Aspartate Amino Transf (AST/SGOT) 20 U/L Alanine Aminotransferase (ALT/SGPT) 24 U/L Alkaline Phosphatase 72 U/L Total Protein 4.9 g/dL Albumin 1.8 g/dL Globulin 3.1 Albumin/Globulin Ratio 0.580 Blood Gas Sample Site HALE Blood Gas pH 7.340 Blood Gas PCO2 47.4 mmHg Blood Gas PO2 76.1 mmHg Blood Gas HCO3 25.0 mmol/L Blood Gas Base Excess -1.1 mmol/L Abdi Test N/A Arterial Blood Oxygen Saturation 94.9 % Deoxyhemoglobin 5.1 % Carboxyhemoglobin 0.5 % Methemoglobin 0.4 % Total Hemoglobin 12.9 % Total Oxygen Concentration 17.1 % Blood Gas Temperature 37 Oxygen Delivery Method (LAB) VENT Blood Gas Vent Mode ACVC Blood Gas Vent Rate 25 FiO2 80 % Blood Gas Tidal Volume 400 ML Blood Gas PEEP 12 CMH2O Total Carbon Dioxide 26.5 mmol/L Test 09/18/20 11:26 Bedside Glucose 158 Current Medications Medications (Trade) Dose Ordered Sig/Adrianna Route PRN Reason Start Time Stop Time Status Last Admin Dose Admin Acetaminophen (Tylenol) 325 mg Q4H PRN PO PAIN 1 - 3 09/03/20 19:00 09/05/20 19:26 DC Morphine Sulfate (Morphine Sulfate) 2 mg Q4H PRN IV PAIN 4 - 6 09/03/20 19:00 09/04/20 19:28 DC Insulin Human Lispro (Humalog) 0-140 0 Units 141-200... ACHS SQ 09/03/20 21:00 09/13/20 19:43 DC 09/13/20 17:28 Dextrose 1,000 ml @ 100 mls/hr Q10H PRN IV HYPOGLYCEMIA 09/03/20 19:00 10/03/20 18:59 Dextrose (Dextrose 50%-Water Syringe) 25 ml STAT PRN IV HYPOGLYCEMIA 09/03/20 19:00 10/03/20 18:59 Glucagon (Glucagen) 1 mg STAT STAT IV 09/03/20 18:44 09/03/20 18:56 DC Heparin Sodium (Porcine) (Heparin) 5,000 unit Q8HR SQ 09/03/20 22:00 09/04/20 20:10 DC 09/04/20 14:00 Lisinopril (Zestril) 20 mg BID PO 09/03/20 21:00 09/14/20 11:07 DC 09/12/20 21:00 Azithromycin 500 mg/Sodium Chloride 250 ml @ 175 mls/hr Q24HRS IV 09/03/20 20:30 09/04/20 08:15 DC 09/03/20 21:11 Ceftriaxone Sodium 1000 mg/ Sodium Chloride 100 ml @ 100 mls/hr Q24HRS IV 09/03/20 19:30 09/04/20 08:15 DC 09/03/20 19:39 Sodium Chloride 1,000 ml @ 75 mls/hr [id number] IV 09/03/20 20:00 09/11/20 10:16 DC 09/11/20 01:20 Ceftriaxone Sodium (Rocephin) 1,000 mg STK-MED ONCE .ROUTE 09/03/20 19:35 09/03/20 19:35 DC Sodium Chloride 100 ml @ ud STK-MED ONCE IV 09/03/20 19:35 09/03/20 19:36 DC Zinc Sulfate (Zinc Sulfate) 220 mg DAILY PO 09/04/20 09:00 09/05/20 00:13 DC 09/04/20 08:22 Ascorbic Acid (Vitamin C) 500 mg BID PO 09/04/20 09:00 09/05/20 00:13 DC 09/04/20 20:22 Morphine Sulfate (Morphine Sulfate) 2 mg Q4H PRN IV PAIN 4 - 6 09/04/20 19:28 09/17/20 11:06 DC Enoxaparin Sodium (Lovenox) 75 mg BID SQ 09/04/20 20:30 09/05/20 11:39 DC 09/05/20 08:20 Azithromycin (Zithromax) 500 mg OT ONCE PO 09/05/20 00:00 09/05/20 02:22 DC 09/05/20 00:27 Ceftriaxone Sodium 2000 mg/ Sodium Chloride 100 ml @ 100 mls/hr Q24HRS IV 09/05/20 00:00 09/09/20 18:46 DC 09/08/20 23:59 Azithromycin (Zithromax) 250 mg DAILY PO 09/05/20 19:00 09/09/20 18:59 DC 09/09/20 08:31 Ceftriaxone Sodium (Rocephin) 1,000 mg STK-MED ONCE .ROUTE 09/05/20 00:25 09/05/20 00:26 DC Sodium Chloride 100 ml @ ud STK-MED ONCE IV 09/05/20 00:26 09/05/20 00:26 DC Enoxaparin Sodium (Lovenox) 40 mg DAILY SQ 09/06/20 09:00 09/09/20 18:47 DC 09/09/20 08:31 Ascorbic Acid (Vitamin C) 1,000 mg BID PO 09/05/20 21:00 10/05/20 20:59 09/18/20 08:53 Zinc Sulfate (Zinc Sulfate) 220 mg BID PO 09/05/20 21:00 10/05/20 20:59 09/18/20 08:55 Albuterol Sulfate (Ventolin Hfa) 2 inh RTQ4 IH 09/05/20 13:00 10/05/20 12:59 09/18/20 12:45 Acetaminophen (Tylenol) 1,000 mg Q6H PRN PO PAIN 1 - 3 09/05/20 12:00 10/05/20 11:59 09/18/20 05:00 Enoxaparin Sodium (Lovenox) 40 mg STK-MED ONCE SQ 09/06/20 07:12 09/06/20 07:12 DC Remdesivir 200 mg/ Sodium Chloride 140 ml @ 120.69 mls/ hr OT STAT IV 09/07/20 18:45 09/07/20 19:54 DC 09/07/20 19:10 Remdesivir 100 mg/ Sodium Chloride 120 ml @ 111.111 mls/hr Q24HRS IV 09/08/20 19:00 09/13/20 07:12 DC 09/12/20 19:00 Potassium Chloride (Klor-Con 10) 40 meq OT PO 09/08/20 13:00 09/11/20 15:50 DC 09/09/20 04:56 Metoprolol Tartrate (Lopresser) 10 mg STAT STAT IVP 09/09/20 11:00 09/09/20 11:04 DC 09/09/20 11:34 Metoprolol Tartrate (Lopresser) 25 mg BID PO 09/09/20 21:00 09/14/20 11:02 DC 09/12/20 21:00 Enoxaparin Sodium (Lovenox) 80 mg BID SQ 09/09/20 19:00 09/11/20 15:51 DC 09/11/20 09:00 Sodium Chloride 250 ml @ ud STK-MED ONCE IV 09/10/20 12:50 09/10/20 12:51 DC Enoxaparin Sodium (Lovenox) 80 mg STK-MED ONCE SQ 09/10/20 21:17 09/10/20 21:17 DC Lorazepam (Ativan) 1 mg Q4HR PRN IV ANXIETY 09/11/20 00:30 09/18/20 08:58 DC 09/13/20 04:00 Enoxaparin Sodium (Lovenox) 80 mg BID SQ 09/11/20 21:00 09/13/20 15:41 DC 09/12/20 21:00 Methylprednisolone Acetate (Depo-Medrol) 40 mg Q8HR IM 09/11/20 22:00 09/11/20 18:19 DC Quetiapine Fumarate (Seroquel) 25 mg BID PO 09/12/20 21:00 09/13/20 15:41 DC 09/12/20 21:00 Quetiapine Fumarate (Seroquel) 25 mg BID PO 09/13/20 03:00 09/13/20 04:46 DC Dexmedetomidine HCl 400 mcg/ Sodium Chloride 100 ml @ 0 mls/hr IV 09/13/20 05:00 10/13/20 04:59 09/14/20 09:26 Sodium Chloride 100 ml @ ud STK-MED ONCE IV 09/13/20 05:16 09/13/20 05:16 DC Hydralazine HCl (Apresoline) 5 mg STAT STAT IV 09/13/20 08:19 09/13/20 08:21 DC 09/13/20 08:30 Hydralazine HCl (Apresoline) 5 mg STAT STAT IV 09/13/20 09:43 09/13/20 10:03 DC 09/13/20 09:43 Sterile Water (Water) 1,000 ml STK-MED ONCE .ROUTE 09/13/20 11:31 09/13/20 11:31 DC Sodium Chloride 1,000 ml @ ud STK-MED ONCE .ROUTE 09/13/20 11:31 09/13/20 11:31 DC Propofol 100 ml @ ud STK-MED ONCE IV 09/13/20 11:46 09/13/20 11:47 DC Propofol (Diprivan) 1,000 mg STAT IV 09/13/20 13:00 10/13/20 12:59 09/17/20 18:31 Sodium Chloride 1,000 ml @ 0 mls/hr Q0M ONCE IV 09/13/20 11:45 09/13/20 13:21 DC 09/13/20 11:45 Fentanyl Citrate 2000 mcg/Sodium Chloride 200 ml @ 7.4 mls/hr IV 09/13/20 16:00 09/13/20 19:50 DC 09/13/20 16:17 Methylprednisolone Sodium Succinate (Solu-Medrol) 40 mg Q8HR IV 09/13/20 22:00 09/17/20 07:00 DC 09/17/20 06:00 Succinylcholine Chloride (Quelicin) 100 mg STK-MED ONCE IV 09/13/20 11:58 09/13/20 18:48 DC Propofol (Diprivan) 150 mg STK-MED ONCE IV 09/13/20 11:58 09/13/20 18:48 DC Furosemide (Lasix) 20 mg STAT STAT IV 09/13/20 19:07 09/13/20 19:47 DC 09/13/20 19:07 Enoxaparin Sodium (Lovenox) 70 mg BID SQ 09/13/20 21:00 10/13/20 20:59 09/18/20 08:55 Insulin Human Lispro (Humalog) 0-140 0 Units 141-200... Q6 SQ 09/14/20 00:00 10/16/22 20:59 09/18/20 12:00 Fentanyl Citrate 5000 mcg/Sodium Chloride 500 ml @ 11.4 mls/hr IV 09/13/20 20:00 10/13/20 19:59 09/18/20 12:29 Sodium Chloride 500 ml @ 500 mls/hr Q1H ONCE IV 09/13/20 21:00 09/13/20 21:59 DC 09/13/20 21:00 Sodium Chloride 500 ml @ ud STK-MED ONCE IV 09/13/20 20:34 09/13/20 20:34 DC Sodium Chloride 250 ml @ ud STK-MED ONCE IV 09/13/20 20:34 09/13/20 20:34 DC Norepinephrine Bitartrate (Levophed) 4 mg STK-MED ONCE .ROUTE 09/13/20 20:34 09/13/20 20:35 DC Norepinephrine Bitartrate 8 mg/ Sodium Chloride 250 ml @ 0 mls/hr PRN PRN IV HYPOTENSION 09/13/20 21:00 10/13/20 20:59 09/18/20 13:20 Furosemide (Lasix) 40 mg STK-MED ONCE .ROUTE 09/13/20 21:19 09/13/20 21:19 DC Docusate Sodium (Colace) 100 mg BID PO 09/14/20 21:00 10/14/20 20:59 09/18/20 09:01 Ceftriaxone Sodium 1000 mg/ Sodium Chloride 100 ml @ 200 mls/hr Q24HRS IV 09/14/20 15:00 09/19/20 14:59 09/17/20 15:00 Azithromycin 500 mg/Sodium Chloride 250 ml @ 175 mls/hr Q24HRS IV 09/14/20 16:00 09/17/20 15:59 DC 09/16/20 16:00 Sodium Chloride 1,000 ml @ 75 mls/hr [id number] IV 09/14/20 15:30 09/17/20 11:06 DC 09/16/20 17:28 Heparin Sodium/ Sodium Chloride 500 ml @ ud STK-MED ONCE IV 09/14/20 18:32 09/14/20 18:32 DC Vecuronium Rainier (Norcuron) 10 mg STK-MED ONCE .ROUTE 09/14/20 18:40 09/14/20 18:40 DC Sterile Water (Water) 1,000 ml STK-MED ONCE .ROUTE 09/15/20 00:38 09/15/20 00:39 DC Insulin Glargine (Lantus) 10 unit BID SQ 09/15/20 14:30 09/16/20 12:30 DC 09/16/20 08:28 Sterile Water (Water) 1,000 ml STK-MED ONCE .ROUTE 09/15/20 20:12 09/15/20 20:13 DC Vecuronium Rainier (Norcuron) 10 mg STAT ONCE IV 09/16/20 10:00 09/16/20 10:12 DC 09/16/20 11:00 Insulin Glargine (Lantus) 20 unit BID SQ 09/16/20 21:00 10/16/20 20:59 09/18/20 09:00 Pantoprazole Sodium (Protonix Iv) 40 mg DAILY IV 09/17/20 09:00 10/17/20 08:59 09/18/20 08:56 Sterile Water (Water) 1,000 ml STK-MED ONCE .ROUTE 09/16/20 16:52 09/16/20 16:53 DC Furosemide (Lasix) 20 mg STAT ONCE IV 09/17/20 08:00 09/17/20 08:17 DC 09/17/20 08:00 Quetiapine Fumarate (Seroquel) 25 mg BID PO 09/17/20 09:30 10/17/20 09:29 09/18/20 08:55 Vecuronium Rainier (Norcuron) 10 mg Q2 PRN IV AGITATION 09/17/20 11:30 09/18/20 08:53 DC 09/17/20 15:00 Furosemide (Lasix) 40 mg DAILY IV 09/17/20 11:30 10/17/20 11:29 09/18/20 08:56 Lactulose (Cephulac) 20 gm DAILY NG 09/18/20 09:00 09/18/20 08:56 DC Norepinephrine Bitartrate (Levophed) 4 mg STK-MED ONCE .ROUTE 09/17/20 16:16 09/17/20 16:17 DC Sodium Chloride 250 ml @ ud STK-MED ONCE IV 09/17/20 16:16 09/17/20 16:17 DC Sterile Water (Water) 1,000 ml STK-MED ONCE .ROUTE 09/17/20 18:20 09/17/20 18:21 DC Sodium Chloride 100 ml @ ud STK-MED ONCE IV 09/17/20 22:27 09/17/20 22:28 DC Fentanyl Citrate (Sublimaze) 50 mcg STK-MED ONCE .ROUTE 09/17/20 22:28 09/17/20 22:29 DC Vecuronium Rainier (Norcuron) 10 mg Q2 IV 09/18/20 09:00 10/17/20 11:29 09/18/20 11:12 Lactulose (Cephulac) 20 gm DAILY NG 09/18/20 09:00 10/18/20 08:59 Vecuronium Rainier (Norcuron) 5 mg Q1HR PRN IV Additional Paralysis 09/18/20 09:00 10/18/20 08:59 Sterile Water (Water) 1,000 ml STK-MED ONCE .ROUTE 09/18/20 09:55 09/18/20 09:55 DC Heparin Sodium/ Dextrose 500 ml @ ud STK-MED ONCE IV 09/18/20 13:59 09/18/20 13:59 DC VTE VTE Risk Total Score: 2 VTE Risk Score VTE Risk: Score 0-1 = Low Risk (Aggressive mobilization; early ambulation; no VTE prophylaxis required) Score 2: Moderate Risk (Intermittent/Pneumatic Compression Device OR Lovenox/Heparin/Coumadin) Score 3-4: High Risk (Intermittent/Pneumatic Compression Device AND Lovenox/Heparin/Coumadin) Score > or =5: Highest Risk (Intermittent/Pneumatic Compression Device AND Lovenox/Heparin/Coumadin) Antico:Hep/LMWH/Coum/Xarelto: Yes VTE VTE Present on Admission: No Currently receiving anticoagul: No VTE Risk Total Score: 2 Antico:Hep/LMWH/Coum/Xarelto: Yes Assessment/Plan Assessment/Plan Plan #1 Neuro: The pt is intubated and sedated on prop versed and fentanyl. The pt is getting scheduled vecuronium #2 CV: THe pt has been normotensive however having acute htn after paralytic, unclear if undersedated vs hypercapneic vs dysautonomia. WIll increase sedation and RR to 30 on vent. If no response will try PRN hydralazine or labetalol. #3 Pulm: The pt is tx with remdesivir lovenox and decadron. VEnt settings of 80% on 12 PEEP. Pt will get proned. #4 GI: COnt tf #5 Renal: Monitor for renal failure, replete lytes, lasix PRN #6 ID: [id number] #[id number] Endo: keep FS 150-180 #8 Heme: Tx plats >10k hgb >7 #9 PPx: lovenox and PPI I discussed pt with HISTORY PROFESSOR and completed the video assessment with assistance from the HISTORY PROFESSOR. I spent a total of greater than 60 minutes formulating critical care for this patient today. I saw this patient and completed a full visual exam via audio-visual HIPAA compliant technology. ALVARO HACKETT MD Sep 18, 2020 14:52
[2020-09-18] MEDS: ROCEPHIN 1,000 MG in NS 100ML 100 ML IV SCH (15:09)
--- NOTE | 2020-09-18 16:15 | PRM.PN ---
Subjective Subjective Date: Sep 18, 2020 Time: 16:08 Subjective Pt s/e this AM at bedside. No acute events overnight. He remains stable on current sedation and pressors. Review of Systems Other Unable to be obtained to intubation and sedation Exam Vital Signs Vital Signs Date Time Temp Pulse Resp B/P (MAP) Pulse Ox O2 Delivery O2 Flow Rate FiO2 09/18/20 14:19 102 30 91 80 09/18/20 13:45 100.2 83/44 (57) 09/18/20 12:00 Mechanical Ventilator 80.00 General Appearance: Other (Intubated/sedated) HEENT: Atraumatic, PERRLA, Other (ETT in place) Respiratory: Other (diminished bilaterally with bibasilar rales. ) Cardiovascular: Regular rate, Normal S1, Normal S2, No murmurs Abdominal: Normal bowel sounds, Soft, No tenderness Extremities: No clubbing, No cyanosis, No edema Skin: No rash, No breakdown, No lesions Neuro: Other (intubated/sedated) Psych/Mental Status: Other (intubated/sedated) Meds/Labs/Orders Medication List: Current Medications Medications (Trade) Dose Ordered Sig/Adrianna Route PRN Reason Start Time Stop Time Status Last Admin Dose Admin Acetaminophen (Tylenol) 325 mg Q4H PRN PO PAIN 1 - 3 09/03/20 19:00 09/05/20 19:26 DC Morphine Sulfate (Morphine Sulfate) 2 mg Q4H PRN IV PAIN 4 - 6 09/03/20 19:00 09/04/20 19:28 DC Insulin Human Lispro (Humalog) 0-140 0 Units 141-200... ACHS SQ 09/03/20 21:00 09/13/20 19:43 DC 09/13/20 17:28 Dextrose 1,000 ml @ 100 mls/hr Q10H PRN IV HYPOGLYCEMIA 09/03/20 19:00 10/03/20 18:59 Dextrose (Dextrose 50%-Water Syringe) 25 ml STAT PRN IV HYPOGLYCEMIA 09/03/20 19:00 10/03/20 18:59 Glucagon (Glucagen) 1 mg STAT STAT IV 09/03/20 18:44 09/03/20 18:56 DC Heparin Sodium (Porcine) (Heparin) 5,000 unit Q8HR SQ 09/03/20 22:00 09/04/20 20:10 DC 09/04/20 14:00 Lisinopril (Zestril) 20 mg BID PO 09/03/20 21:00 09/14/20 11:07 DC 09/12/20 21:00 Azithromycin 500 mg/Sodium Chloride 250 ml @ 175 mls/hr Q24HRS IV 09/03/20 20:30 09/04/20 08:15 DC 09/03/20 21:11 Ceftriaxone Sodium 1000 mg/ Sodium Chloride 100 ml @ 100 mls/hr Q24HRS IV 09/03/20 19:30 09/04/20 08:15 DC 09/03/20 19:39 Sodium Chloride 1,000 ml @ 75 mls/hr [id number] IV 09/03/20 20:00 09/11/20 10:16 DC 09/11/20 01:20 Ceftriaxone Sodium (Rocephin) 1,000 mg STK-MED ONCE .ROUTE 09/03/20 19:35 09/03/20 19:35 DC Sodium Chloride 100 ml @ ud STK-MED ONCE IV 09/03/20 19:35 09/03/20 19:36 DC Zinc Sulfate (Zinc Sulfate) 220 mg DAILY PO 09/04/20 09:00 09/05/20 00:13 DC 09/04/20 08:22 Ascorbic Acid (Vitamin C) 500 mg BID PO 09/04/20 09:00 09/05/20 00:13 DC 09/04/20 20:22 Morphine Sulfate (Morphine Sulfate) 2 mg Q4H PRN IV PAIN 4 - 6 09/04/20 19:28 09/17/20 11:06 DC Enoxaparin Sodium (Lovenox) 75 mg BID SQ 09/04/20 20:30 09/05/20 11:39 DC 09/05/20 08:20 Azithromycin (Zithromax) 500 mg OT ONCE PO 09/05/20 00:00 09/05/20 02:22 DC 09/05/20 00:27 Ceftriaxone Sodium 2000 mg/ Sodium Chloride 100 ml @ 100 mls/hr Q24HRS IV 09/05/20 00:00 09/09/20 18:46 DC 09/08/20 23:59 Azithromycin (Zithromax) 250 mg DAILY PO 09/05/20 19:00 09/09/20 18:59 DC 09/09/20 08:31 Ceftriaxone Sodium (Rocephin) 1,000 mg STK-MED ONCE .ROUTE 09/05/20 00:25 09/05/20 00:26 DC Sodium Chloride 100 ml @ ud STK-MED ONCE IV 09/05/20 00:26 09/05/20 00:26 DC Enoxaparin Sodium (Lovenox) 40 mg DAILY SQ 09/06/20 09:00 09/09/20 18:47 DC 09/09/20 08:31 Ascorbic Acid (Vitamin C) 1,000 mg BID PO 09/05/20 21:00 10/05/20 20:59 09/18/20 08:53 Zinc Sulfate (Zinc Sulfate) 220 mg BID PO 09/05/20 21:00 10/05/20 20:59 09/18/20 08:55 Albuterol Sulfate (Ventolin Hfa) 2 inh RTQ4 IH 09/05/20 13:00 10/05/20 12:59 09/18/20 12:45 Acetaminophen (Tylenol) 1,000 mg Q6H PRN PO PAIN 1 - 3 09/05/20 12:00 10/05/20 11:59 09/18/20 05:00 Enoxaparin Sodium (Lovenox) 40 mg STK-MED ONCE SQ 09/06/20 07:12 09/06/20 07:12 DC Remdesivir 200 mg/ Sodium Chloride 140 ml @ 120.69 mls/ hr OT STAT IV 09/07/20 18:45 09/07/20 19:54 DC 09/07/20 19:10 Remdesivir 100 mg/ Sodium Chloride 120 ml @ 111.111 mls/hr Q24HRS IV 09/08/20 19:00 09/13/20 07:12 DC 09/12/20 19:00 Potassium Chloride (Klor-Con 10) 40 meq OT PO 09/08/20 13:00 09/11/20 15:50 DC 09/09/20 04:56 Metoprolol Tartrate (Lopresser) 10 mg STAT STAT IVP 09/09/20 11:00 09/09/20 11:04 DC 09/09/20 11:34 Metoprolol Tartrate (Lopresser) 25 mg BID PO 09/09/20 21:00 09/14/20 11:02 DC 09/12/20 21:00 Enoxaparin Sodium (Lovenox) 80 mg BID SQ 09/09/20 19:00 09/11/20 15:51 DC 09/11/20 09:00 Sodium Chloride 250 ml @ ud STK-MED ONCE IV 09/10/20 12:50 09/10/20 12:51 DC Enoxaparin Sodium (Lovenox) 80 mg STK-MED ONCE SQ 09/10/20 21:17 09/10/20 21:17 DC Lorazepam (Ativan) 1 mg Q4HR PRN IV ANXIETY 09/11/20 00:30 09/18/20 08:58 DC 09/13/20 04:00 Enoxaparin Sodium (Lovenox) 80 mg BID SQ 09/11/20 21:00 09/13/20 15:41 DC 09/12/20 21:00 Methylprednisolone Acetate (Depo-Medrol) 40 mg Q8HR IM 09/11/20 22:00 09/11/20 18:19 DC Quetiapine Fumarate (Seroquel) 25 mg BID PO 09/12/20 21:00 09/13/20 15:41 DC 09/12/20 21:00 Quetiapine Fumarate (Seroquel) 25 mg BID PO 09/13/20 03:00 09/13/20 04:46 DC Dexmedetomidine HCl 400 mcg/ Sodium Chloride 100 ml @ 0 mls/hr IV 09/13/20 05:00 10/13/20 04:59 09/14/20 09:26 Sodium Chloride 100 ml @ STK-MED ONCE IV 09/13/20 05:16 09/13/20 05:16 DC Hydralazine HCl (Apresoline) 5 mg STAT STAT IV 09/13/20 08:19 09/13/20 08:21 DC 09/13/20 08:30 Hydralazine HCl (Apresoline) 5 mg STAT STAT IV 09/13/20 09:43 09/13/20 10:03 DC 09/13/20 09:43 Sterile Water (Water) 1,000 ml STK-MED ONCE .ROUTE 09/13/20 11:31 09/13/20 11:31 DC Sodium Chloride 1,000 ml @ ud STK-MED ONCE .ROUTE 09/13/20 11:31 09/13/20 11:31 DC Propofol 100 ml @ ud STK-MED ONCE IV 09/13/20 11:46 09/13/20 11:47 DC Propofol (Diprivan) 1,000 mg STAT IV 09/13/20 13:00 10/13/20 12:59 09/17/20 18:31 Sodium Chloride 1,000 ml @ 0 mls/hr Q0M ONCE IV 09/13/20 11:45 09/13/20 13:21 DC 09/13/20 11:45 Fentanyl Citrate 2000 mcg/Sodium Chloride 200 ml @ 7.4 mls/hr IV 09/13/20 16:00 09/13/20 19:50 DC 09/13/20 16:17 Methylprednisolone Sodium Succinate (Solu-Medrol) 40 mg Q8HR IV 09/13/20 22:00 09/17/20 07:00 DC 09/17/20 06:00 Succinylcholine Chloride (Quelicin) 100 mg STK-MED ONCE IV 09/13/20 11:58 09/13/20 18:48 DC Propofol (Diprivan) 150 mg STK-MED ONCE IV 09/13/20 11:58 09/13/20 18:48 DC Furosemide (Lasix) 20 mg STAT STAT IV 09/13/20 19:07 09/13/20 19:47 DC 09/13/20 19:07 Enoxaparin Sodium (Lovenox) 70 mg BID SQ 09/13/20 21:00 10/13/20 20:59 09/18/20 08:55 Insulin Human Lispro (Humalog) 0-140 0 Units 141-200... Q6 SQ 09/14/20 00:00 10/16/22 20:59 09/18/20 12:00 Fentanyl Citrate 5000 mcg/Sodium Chloride 500 ml @ 11.4 mls/hr IV 09/13/20 20:00 10/13/20 19:59 09/18/20 12:29 Sodium Chloride 500 ml @ 500 mls/hr Q1H ONCE IV 09/13/20 21:00 09/13/20 21:59 DC 09/13/20 21:00 Sodium Chloride 500 ml @ ud STK-MED ONCE IV 09/13/20 20:34 09/13/20 20:34 DC Sodium Chloride 250 ml @ ud STK-MED ONCE IV 09/13/20 20:34 09/13/20 20:34 DC Norepinephrine Bitartrate (Levophed) 4 mg STK-MED ONCE .ROUTE 09/13/20 20:34 09/13/20 20:35 DC Norepinephrine Bitartrate 8 mg/ Sodium Chloride 250 ml @ 0 mls/hr PRN PRN IV HYPOTENSION 09/13/20 21:00 10/13/20 20:59 09/18/20 13:20 Furosemide (Lasix) 40 mg STK-MED ONCE .ROUTE 09/13/20 21:19 09/13/20 21:19 DC Docusate Sodium (Colace) 100 mg BID PO 09/14/20 21:00 10/14/20 20:59 09/18/20 09:01 Ceftriaxone Sodium 1000 mg/ Sodium Chloride 100 ml @ 200 mls/hr Q24HRS IV 09/14/20 15:00 09/19/20 14:59 09/18/20 15:09 Azithromycin 500 mg/Sodium Chloride 250 ml @ 175 mls/hr Q24HRS IV 09/14/20 16:00 09/17/20 15:59 DC 09/16/20 16:00 Sodium Chloride 1,000 ml @ 75 mls/hr [id number] IV 09/14/20 15:30 09/17/20 11:06 DC 09/16/20 17:28 Heparin Sodium/ Sodium Chloride 500 ml @ ud STK-MED ONCE IV 09/14/20 18:32 09/14/20 18:32 DC Vecuronium [place] (Norcuron) 10 mg STK-MED ONCE .ROUTE 09/14/20 18:40 09/14/20 18:40 DC Sterile Water (Water) 1,000 ml STK-MED ONCE .ROUTE 09/15/20 00:38 09/15/20 00:39 DC Insulin Glargine (Lantus) 10 unit BID SQ 09/15/20 14:30 09/16/20 12:30 DC 09/16/20 08:28 Sterile Water (Water) 1,000 ml STK-MED ONCE .ROUTE 09/15/20 20:12 09/15/20 20:13 DC Vecuronium [place] (Norcuron) 10 mg STAT ONCE IV 09/16/20 10:00 09/16/20 10:12 DC 09/16/20 11:00 Insulin Glargine (Lantus) 20 unit BID SQ 09/16/20 21:00 10/16/20 20:59 09/18/20 09:00 Pantoprazole Sodium (Protonix Iv) 40 mg DAILY IV 09/17/20 09:00 10/17/20 08:59 09/18/20 08:56 Sterile Water (Water) 1,000 ml STK-MED ONCE .ROUTE 09/16/20 16:52 09/16/20 16:53 DC Furosemide (Lasix) 20 mg STAT ONCE IV 09/17/20 08:00 09/17/20 08:17 DC 09/17/20 08:00 Quetiapine Fumarate (Seroquel) 25 mg BID PO 09/17/20 09:30 10/17/20 09:29 09/18/20 08:55 Vecuronium [place] (Norcuron) 10 mg Q2 PRN IV AGITATION 09/17/20 11:30 09/18/20 08:53 DC 09/17/20 15:00 Furosemide (Lasix) 40 mg DAILY IV 09/17/20 11:30 10/17/20 11:29 09/18/20 08:56 Lactulose (Cephulac) 20 gm DAILY NG 09/18/20 09:00 09/18/20 08:56 DC Norepinephrine Bitartrate (Levophed) 4 mg STK-MED ONCE .ROUTE 09/17/20 16:16 09/17/20 16:17 DC Sodium Chloride 250 ml @ ud STK-MED ONCE IV 09/17/20 16:16 09/17/20 16:17 DC Sterile Water (Water) 1,000 ml STK-MED ONCE .ROUTE 09/17/20 18:20 09/17/20 18:21 DC Sodium Chloride 100 ml @ ud STK-MED ONCE IV 09/17/20 22:27 09/17/20 22:28 DC Fentanyl Citrate (Sublimaze) 50 mcg STK-MED ONCE .ROUTE 09/17/20 22:28 09/17/20 22:29 DC Vecuronium [place] (Norcuron) 10 mg Q2 IV 09/18/20 09:00 10/17/20 11:29 09/18/20 15:07 Lactulose (Cephulac) 20 gm DAILY NG 09/18/20 09:00 10/18/20 08:59 Vecuronium [place] (Norcuron) 5 mg Q1HR PRN IV Additional Paralysis 09/18/20 09:00 10/18/20 08:59 Sterile Water (Water) 1,000 ml STK-MED ONCE .ROUTE 09/18/20 09:55 09/18/20 09:55 DC Heparin Sodium/ Dextrose 500 ml @ ud STK-MED ONCE IV 09/18/20 13:59 09/18/20 13:59 DC Lab results: Laboratory Tests Test 09/16/20 17:13 09/16/20 21:21 09/17/20 00:03 09/17/20 03:50 Bedside Glucose 170 186 221 White Blood Count 17.5 10^3/uL Red Blood Count 4.13 10^6/uL Hemoglobin 11.8 g/dL Hematocrit 36.6 % Mean Corpuscular Volume 88.6 fL Mean Corpuscular Hemoglobin 28.6 pg Mean Corpuscular Hemoglobin Concent 32.2 g/dL Red Cell Distribution Width 13.0 % Platelet Count 217 10^3/uL Mean Platelet Volume 9.7 fL Neutrophils (%) (Auto) 93.7 % Lymphocytes (%) (Auto) 1.3 % Monocytes (%) (Auto) 4.1 % Neutrophils # (Auto) 16.4 10^3/uL Lymphocytes # (Auto) 0.22 10^3/uL1 Monocytes # (Auto) 0.7 10^3/uL Absolute Immature Granulocyte (auto 0.16 10^3 u/L Absolute Eosinophils (auto) 0.0 10^3/uL Immature Granulocytes % 0.90 % Eosinophils % 0.0 % Basophils % 0.0 % Basophils # 0.0 10^3/uL Sodium Level 141 mmol/L Potassium Level 5.2 mmol/L Chloride Level 109.0 mmol/L Carbon Dioxide Level 26.2 mmol/L Anion Gap 11.0 Blood Urea Nitrogen 56 mg/dL Creatinine 1.02 mg/dL Estimated GFR () 89.0 Est GFR (CKD-EPI)(Non-Afr [place]) 73.5 BUN/Creatinine Ratio 54.0 Glucose Level 242 mg/dL Calcium Level 7.4 mg/dL Total Bilirubin 0.3 mg/dL Aspartate Amino Transf (AST/SGOT) 19 U/L Alanine Aminotransferase (ALT/SGPT) 20 U/L Alkaline Phosphatase 68 U/L Total Protein 4.6 g/dL Albumin 1.9 g/dL Globulin 2.7 Albumin/Globulin Ratio 0.703 Test 09/17/20 04:10 09/17/20 04:22 09/17/20 05:51 09/17/20 06:25 Bedside Glucose 235 244 Segmented Neutrophils 96 % Lymphocytes 1 % Monocytes 3 % Platelet Estimate ADEQUATE Platelet Morphology NORMAL Blood Gas Sample Site ARTERIAL LINE Blood Gas pH 7.303 Blood Gas PCO2 45.2 mmHg Blood Gas PO2 61.0 mmHg Blood Gas HCO3 21.9 mmol/L Blood Gas Base Excess -4.4 mmol/L Abdi Test N/A Arterial Blood Oxygen Saturation 89.1 % Deoxyhemoglobin 10.8 % Carboxyhemoglobin 0.3 % Methemoglobin 0.3 % Total Hemoglobin 12.6 % Total Oxygen Concentration 15.7 % Blood Gas Temperature 37 Oxygen Delivery Method (LAB) VENT Blood Gas Vent Mode AC Blood Gas Vent Rate 25 FiO2 90 % Blood Gas Tidal Volume 400 ML Blood Gas PEEP 10 CMH2O Total Carbon Dioxide 23.3 mmol/L Test 09/17/20 09:10 09/17/20 10:45 09/17/20 16:08 09/17/20 16:41 Ammonia 36 umol/L Bedside Glucose 218 186 Sodium Level 138 mmol/L Potassium Level 5.0 mmol/L Chloride Level 106.0 mmol/L Carbon Dioxide Level 24.6 mmol/L Glucose Level 209 mg/dL Blood Urea Nitrogen 62 mg/dL Creatinine 1.29 mg/dL Calcium Level 7.1 mg/dL Anion Gap 12.4 Estimated GFR () 67.8 Est GFR (CKD-EPI)(Non-Afr [place]) 56.1 BUN/Creatinine Ratio 48.0 Test 09/17/20 20:00 09/17/20 23:51 09/18/20 04:14 09/18/20 05:38 Bedside Glucose 175 135 173 White Blood Count 20.4 10^3/uL Red Blood Count 4.32 10^6/uL Hemoglobin 12.5 g/dL Hematocrit 38.3 % Mean Corpuscular Volume 88.7 fL Mean Corpuscular Hemoglobin 28.9 pg Mean Corpuscular Hemoglobin Concent 32.6 g/dL Red Cell Distribution Width 13.2 % Platelet Count 202 10^3/uL Mean Platelet Volume 10.0 fL Neutrophils (%) (Auto) 86.3 % Lymphocytes (%) (Auto) 4.3 % Monocytes (%) (Auto) 5.5 % Neutrophils # (Auto) 17.6 10^3/uL Lymphocytes # (Auto) 0.87 10^3/uL1 Monocytes # (Auto) 1.1 10^3/uL Absolute Immature Granulocyte (auto 0.74 10^3 u/L Absolute Eosinophils (auto) 0.1 10^3/uL Immature Granulocytes % 3.60 % Eosinophils % 0.3 % Basophils % 0.0 % Basophils # 0.0 10^3/uL Sodium Level 141 mmol/L Potassium Level 4.4 mmol/L Chloride Level 107.0 mmol/L Carbon Dioxide Level 25.2 mmol/L Anion Gap 13.2 Blood Urea Nitrogen 62 mg/dL Creatinine 1.21 mg/dL Estimated GFR () 73.1 Est GFR (CKD-EPI)(Non-Afr [place]) 60.4 BUN/Creatinine Ratio 51.0 Glucose Level 129 mg/dL Calcium Level 7.0 mg/dL Total Bilirubin 0.3 mg/dL Aspartate Amino Transf (AST/SGOT) 20 U/L Alanine Aminotransferase (ALT/SGPT) 24 U/L Alkaline Phosphatase 72 U/L Total Protein 4.9 g/dL Albumin 1.8 g/dL Globulin 3.1 Albumin/Globulin Ratio 0.580 Test 09/18/20 07:47 09/18/20 11:26 Blood Gas Sample Site [place] Blood Gas pH 7.340 Blood Gas PCO2 47.4 mmHg Blood Gas PO2 76.1 mmHg Blood Gas HCO3 25.0 mmol/L Blood Gas Base Excess -1.1 mmol/L Abdi Test N/A Arterial Blood Oxygen Saturation 94.9 % Deoxyhemoglobin 5.1 % Carboxyhemoglobin 0.5 % Methemoglobin 0.4 % Total Hemoglobin 12.9 % Total Oxygen Concentration 17.1 % Blood Gas Temperature 37 Oxygen Delivery Method (LAB) VENT Blood Gas Vent Mode ACVC Blood Gas Vent Rate 25 FiO2 80 % Blood Gas Tidal Volume 400 ML Blood Gas PEEP 12 CMH2O Total Carbon Dioxide 26.5 mmol/L Bedside Glucose 158 Assessment/Plan Assessment/Plan Assessment/Plan A 64 y.o. male w/ PMHx significant for HTN, HLD, DM II, who was admitted on Sep 03 for Acute Hypoxemic respiratory failure. Initially, his COVID testing returned negative and his hypoxemia was thought to be 2/2 another etiology. However, after no etiology could be elucidated, a COVID PCR was repeated and returned positive. He was then started on treatment for COVID-19 with Azithromycin, steroids, Remdesivir, CCP, and Zinc/Vitamin C. Despite treatment, his respiratory status slowly declined and he was intubated on Sep 10. At this time, he is stable on current sedation and pressors. However, ABG obtained this AM shows a P/F ratio of < 100. COVID PNEUMONIA SEVERE ARDS ACUTE HYPOXEMIC RESPIRATORY FAILURE SEPTIC SHOCK - Completed 5 days of Remdesivir - Completed 5 days of Azithromycin - Pt was started on Dexamethasone initially for treatment of COVID; he was transitioned to Methylprednisolone at some point, which was discontinued on Sep 17. - Pt has completed 5 days of Rocephin for CAP PNA today; will discontinue - Duonebs q4h scheduled - Given P/F ratio, will start proning. 16h prone, 8h supine. Pt proned Sep 18 at 1600. - continue sedation with RASS goal of < - 2 - Vecuronium pushes for paralysis - Pt meets criteria for septic shock given +SIRS, infection, and hypotension requiring pressors - goal fluid balance should be negative to keep Pt as dry as possible ESSENTIAL HYPERTENSION - stable with pressors - holding home antihypertensives for now T2DM - blood sugars very labile - Currently on SQ Lantus 20 BID, with Humalog SSI#2 - enteral feeding ongoing - monitor for hypoglycemia now that Pt is off steroids STAGE I ZOEY - likely pre-renal given hypotension and septic shock requiring pressors - continue to monitor Cr closely; currently on the downtrend - avoid further hypotension Keep MAP > 60 - avoid nephrotoxins where possible - monitor UOP; - Keep pt as dry as possible while maintaining UOP/renal function Feeding - GLUCERNA 1.5CAL Analgesia - fentanyl gtt Sedation - Propofol VTE ppx - lovenox Head of bed - Flat when prone, 30 deg when supine GI ppx - protonix Spontaneous breathing trial - not ready Bowels care - resumed BMs 09/18; rectal tube placed UOP - [place] in place Time Spent: > 35 minutes spent in chart review, patient evaluation, coordination of care, and documentation BAMBI KAUR MD Sep 18, 2020 16:15
--- NOTE | 2020-09-18 17:39 | DIET.OP ---
Nutrition Asmt/Malnutrit 2-17 Actual Date of Review: Sep 18, 2020 Diagnosis: Covid 19, Acute Hypoxemic Respiratory Failure Pertinent Medical Hx/Surgical: HTN, HLD, T2DM Subjective Information: telehealth f/u- pt remains intubated and sedated. TF: Glucerna 1.5 165cc Q4h with 155cc water flush Q4. BG 129-173 mg/dl. Current Diet Order/Nutrition S: NPO Patient /S.O: Not Indicated Pertinent Meds Current Medications Medications (Trade) Dose Ordered Sig/Adrianna PRN Reason Start Time Stop Time Status Last Admin Furosemide (Lasix) 40 mg DAILY 09/17/20 11:30 10/17/20 11:29 09/18/20 08:56 Insulin Glargine (Lantus) 20 unit BID 09/16/20 21:00 10/16/20 20:59 09/18/20 09:00 Lactulose (Cephulac) 20 gm DAILY 09/18/20 09:00 10/18/20 08:59 Pantoprazole Sodium (Protonix Iv) 40 mg DAILY 09/17/20 09:00 10/17/20 08:59 09/18/20 08:56 Quetiapine Fumarate (Seroquel) 25 mg BID 09/17/20 09:30 10/17/20 09:29 09/18/20 08:55 Vecuronium [place] (Norcuron) 5 mg Q1HR PRN Additional Paralysis 09/18/20 09:00 10/18/20 08:59 Vecuronium [place] (Norcuron) 10 mg Q2 09/18/20 09:00 10/17/20 11:29 09/18/20 15:07 Pertinent Labs Laboratory Tests Test 09/16/20 21:21 09/17/20 00:03 09/17/20 03:50 09/17/20 04:10 Bedside Glucose 186 221 235 White Blood Count 17.5 10^3/uL Red Blood Count 4.13 10^6/uL Hemoglobin 11.8 g/dL Hematocrit 36.6 % Mean Corpuscular Volume 88.6 fL Mean Corpuscular Hemoglobin 28.6 pg Mean Corpuscular Hemoglobin Concent 32.2 g/dL Red Cell Distribution Width 13.0 % Platelet Count 217 10^3/uL Mean Platelet Volume 9.7 fL Neutrophils (%) (Auto) 93.7 % Lymphocytes (%) (Auto) 1.3 % Monocytes (%) (Auto) 4.1 % Neutrophils # (Auto) 16.4 10^3/uL Lymphocytes # (Auto) 0.22 10^3/uL1 Monocytes # (Auto) 0.7 10^3/uL Absolute Immature Granulocyte (auto 0.16 10^3 u/L Absolute Eosinophils (auto) 0.0 10^3/uL Immature Granulocytes % 0.90 % Eosinophils % 0.0 % Basophils % 0.0 % Basophils # 0.0 10^3/uL Sodium Level 141 mmol/L Potassium Level 5.2 mmol/L Chloride Level 109.0 mmol/L Carbon Dioxide Level 26.2 mmol/L Anion Gap 11.0 Blood Urea Nitrogen 56 mg/dL Creatinine 1.02 mg/dL Estimated GFR () 89.0 Est GFR (CKD-EPI)(Non-Afr [place]) 73.5 BUN/Creatinine Ratio 54.0 Glucose Level 242 mg/dL Calcium Level 7.4 mg/dL Total Bilirubin 0.3 mg/dL Aspartate Amino Transf (AST/SGOT) 19 U/L Alanine Aminotransferase (ALT/SGPT) 20 U/L Alkaline Phosphatase 68 U/L Total Protein 4.6 g/dL Albumin 1.9 g/dL Globulin 2.7 Albumin/Globulin Ratio 0.703 Test 09/17/20 04:22 09/17/20 05:51 09/17/20 06:25 09/17/20 09:10 Segmented Neutrophils 96 % Lymphocytes 1 % Monocytes 3 % Platelet Estimate ADEQUATE Platelet Morphology NORMAL Bedside Glucose 244 Blood Gas Sample Site ARTERIAL LINE Blood Gas pH 7.303 Blood Gas PCO2 45.2 mmHg Blood Gas PO2 61.0 mmHg Blood Gas HCO3 21.9 mmol/L Blood Gas Base Excess -4.4 mmol/L Abdi Test N/A Arterial Blood Oxygen Saturation 89.1 % Deoxyhemoglobin 10.8 % Carboxyhemoglobin 0.3 % Methemoglobin 0.3 % Total Hemoglobin 12.6 % Total Oxygen Concentration 15.7 % Blood Gas Temperature 37 Oxygen Delivery Method (LAB) VENT Blood Gas Vent Mode AC Blood Gas Vent Rate 25 FiO2 90 % Blood Gas Tidal Volume 400 ML Blood Gas PEEP 10 CMH2O Total Carbon Dioxide 23.3 mmol/L Ammonia 36 umol/L Test 09/17/20 10:45 09/17/20 16:08 09/17/20 16:41 09/17/20 20:00 Bedside Glucose 218 186 175 Sodium Level 138 mmol/L Potassium Level 5.0 mmol/L Chloride Level 106.0 mmol/L Carbon Dioxide Level 24.6 mmol/L Glucose Level 209 mg/dL Blood Urea Nitrogen 62 mg/dL Creatinine 1.29 mg/dL Calcium Level 7.1 mg/dL Anion Gap 12.4 Estimated GFR () 67.8 Est GFR (CKD-EPI)(Non-Afr [place]) 56.1 BUN/Creatinine Ratio 48.0 Test 09/17/20 23:51 09/18/20 04:14 09/18/20 05:38 09/18/20 07:47 Bedside Glucose 135 173 White Blood Count 20.4 10^3/uL Red Blood Count 4.32 10^6/uL Hemoglobin 12.5 g/dL Hematocrit 38.3 % Mean Corpuscular Volume 88.7 fL Mean Corpuscular Hemoglobin 28.9 pg Mean Corpuscular Hemoglobin Concent 32.6 g/dL Red Cell Distribution Width 13.2 % Platelet Count 202 10^3/uL Mean Platelet Volume 10.0 fL Neutrophils (%) (Auto) 86.3 % Lymphocytes (%) (Auto) 4.3 % Monocytes (%) (Auto) 5.5 % Neutrophils # (Auto) 17.6 10^3/uL Lymphocytes # (Auto) 0.87 10^3/uL1 Monocytes # (Auto) 1.1 10^3/uL Absolute Immature Granulocyte (auto 0.74 10^3 u/L Absolute Eosinophils (auto) 0.1 10^3/uL Immature Granulocytes % 3.60 % Eosinophils % 0.3 % Basophils % 0.0 % Basophils # 0.0 10^3/uL Sodium Level 141 mmol/L Potassium Level 4.4 mmol/L Chloride Level 107.0 mmol/L Carbon Dioxide Level 25.2 mmol/L Anion Gap 13.2 Blood Urea Nitrogen 62 mg/dL Creatinine 1.21 mg/dL Estimated GFR () 73.1 Est GFR (CKD-EPI)(Non-Afr [place]) 60.4 BUN/Creatinine Ratio 51.0 Glucose Level 129 mg/dL Calcium Level 7.0 mg/dL Total Bilirubin 0.3 mg/dL Aspartate Amino Transf (AST/SGOT) 20 U/L Alanine Aminotransferase (ALT/SGPT) 24 U/L Alkaline Phosphatase 72 U/L Total Protein 4.9 g/dL Albumin 1.8 g/dL Globulin 3.1 Albumin/Globulin Ratio 0.580 Blood Gas Sample Site SALOMÓN Blood Gas pH 7.340 Blood Gas PCO2 47.4 mmHg Blood Gas PO2 76.1 mmHg Blood Gas HCO3 25.0 mmol/L Blood Gas Base Excess -1.1 mmol/L Abdi Test N/A Arterial Blood Oxygen Saturation 94.9 % Deoxyhemoglobin 5.1 % Carboxyhemoglobin 0.5 % Methemoglobin 0.4 % Total Hemoglobin 12.9 % Total Oxygen Concentration 17.1 % Blood Gas Temperature 37 Oxygen Delivery Method (LAB) VENT Blood Gas Vent Mode ACVC Blood Gas Vent Rate 25 FiO2 80 % Blood Gas Tidal Volume 400 ML Blood Gas PEEP 12 CMH2O Total Carbon Dioxide 26.5 mmol/L Test 09/18/20 11:26 Bedside Glucose 158 Height (Feet): 5 Height (Inches): 6 Current Weight: 187 %IBW: 132 Recent Weight Change: Yes (wt trending up 24# the last 6 days) Weight Status: Overweight GI Comments no BM since 09/10 (8 days) - colace given Food Allergies: No Cultural/Ethnic/Druze Marylou: none identified BEE in Kcals: Use Current Weight Calories/Kcals/Kg: [address] 2002 Kcals Calculated: 1687 kcal Protein: Use Current Weight Protein g/k.8-1 g/kg Protein Calculated: 60-75g Fluid: ml: 6980-8651 ml or 1 ml/kcal Nutritional Problem: No Cur. Nutritional Probl Recommendations by RD: Add supplement feedings RD Comments: 1. Continue Glucerna 1.5 165cc Q4h with 155cc water flush Q4. This will provide 1485 kcal, 81 g pro, 130 g CHO, 16 g fat, and 1687 ml of water to meet 100% of the pts nutrition needs in combination with calories from propofol. 2. Monitor K, Mg, and PO4 before and during EN initiation. 3. Monitor BG Q4hr and correct as indicated. 4. Continue colace and monitor for TF tolerance closely. RD to monitor TF tolerance, weight, labs, care plan, and vent and sedation setting. Will update recommendations accordingly. Expected Outcomes TF meeting 100% of pts needs the next 2 days and tolerated well. met, continue Discharge goal is pending. Malnutrtion/Nutrition Risk Edu: No MD Notificiation Needed?: No Jessica Morris Sep 18, 2020 17:39
--- NOTE | 2020-09-18 20:36 | NUR ---
MD Notification notified that patient's BG 76, tube feedings to be placed on hold while prone, per Dr. Vasquez. Currently no glucose source. Evening dose Lantus held. Addendum: 09/19/20 at 0645 by BRINDA ARREAGA RN/MEGHAN/LEXUS RIVERA notified: Dr. Matias, hospitalist
[2020-09-18] MEDS: D5W-1/2NS 1000ML 1,000 ML IV SCH (20:48)
[2020-09-18] MEDS: DIPRIVAN IV SCH (23:31)
[2020-09-19] VITALS (92 sets, daily range): BP systolic 93–177; BP diastolic 45–94
[2020-09-19] MEDS: VENTOLIN HFA IH SCH ×4 (00:20→20:25)
--- NOTE | 2020-09-19 00:54 | NUR ---
Dysrhythmia MD notified of 16 beat run of V-tach. Per MD, continue to monitor and recontact for STAT labs if patient has ectopy. Patient to have CMP and Mg levels in the am.
[2020-09-19] MEDS: NORCURON IV SCH ×12 (01:40→22:00)
[2020-09-19] MEDS: DIPRIVAN IV SCH ×3 (03:30→22:47)
[2020-09-19 04:55] LABS: EOSINOPHIL # 0.3 10^3/uL (0.0-0.2); EOSINOPHIL % 1.7 % (0.0-5.0); LYMPHOCYTES # 0.83 10^3/uL1 (1.0-4.8); LYMPHOCYTES % 4.6 % (24.0-44.0); MEAN CORP HGB 29.6 pg (26-34); MONOCYTES # 0.5 10^3/uL (0.3-0.8); MONOCYTES % 2.9 % (5.0-12.0); NEUTROPHIL # 16.1 10^3/uL (1.8-7.7); NEUTROPHILS % 88.7 % (41.0-85.0); PLATELET COUNT 137 10^3/uL (150-400); RED CELL DISTRIBUTION WIDTH 13.2 % (11.5-14.5)
--- NOTE | 2020-09-19 05:27 | NUR ---
Blood glucose discrepancy Fingerstick blood glucose reading 68, blood drawn from A-line reading 200. Awaiting laboratory blood glucose value to determine accuracy, will notify MD and oncoming RN.
[2020-09-19 05:53] LABS: CALCIUM 7.4 mg/dL (8.4-10.5); CARBON DIOXIDE 30.9 mmol/L (20.0-32)
[2020-09-19] MEDS: HUMALOG SQ SCH ×4 (06:26→16:42)
--- NOTE | 2020-09-19 06:42 | NUR ---
MD Notification notified of elevated D-dimer. Discussed discrepancy in blood glucose between a-line and fingerstick. Per MD, due to edema in the fingers, obtain subsequent Q6H blood glucose checks from A-line or lab draw. Will endorse to AMY RIVERA. Addendum: 09/19/20 at 0645 by BRINDA ARREAGA RN/MEGHAN/LEXUS RIVERA notified: Dr. Matias, hospitalist
--- NOTE | 2020-09-19 07:20 | NUR ---
Notified Dr. Vasquez patient procalcitonin is 1.44. No new orders received. Platelets decreased from 202 to 137, held morning dose of lovenox.
[2020-09-19 07:48] LABS: ABG PCO2 39.8 mmHg (35.0-45.0); BE(B) 2.2 mmol/L (-2.0-2.0); HCO3act 26.4 mmol/L (22.0-26.0); pO2 65.1 mmHg (80.0-100.0)
--- NOTE | 2020-09-19 08:00 | NUR ---
Administered scheduled dose of 10mg vecuronium iv push prior to unproning patient. RT assisted with head and stabilizing tube. Anabela RN, Olga RN and MIGUEL Austin assisted with turning patient. No adverse events. Vitals stable while supined.
[2020-09-19] MEDS: PROTONIX IV IV SCH (08:49)
[2020-09-19] MEDS: LASIX IV SCH (08:49)
[2020-09-19] MEDS: CEPHULAC NG SCH (08:49)
[2020-09-19] MEDS: COLACE PO SCH ×2 (08:49→20:35)
[2020-09-19] MEDS: LANTUS SQ SCH ×2 (08:50→19:45)
[2020-09-19] MEDS: VITAMIN C PO SCH ×2 (08:50→20:35)
[2020-09-19] MEDS: ZINC SULFATE PO SCH ×2 (08:50→20:36)
[2020-09-19] MEDS: SEROQUEL PO SCH ×2 (08:50→20:35)
[2020-09-19] MEDS: LOVENOX SQ SCH ×2 (09:00→20:36)
[2020-09-19] MEDS: MAXIPIME 2 GM in NS 100ML 100 ML IV SCH ×2 (09:00→17:00)
--- NOTE | 2020-09-19 10:38 | NUR ---
Completed telemedicine consultation. Notified Dr. Forman patient requiring levophed with blood pressure 96/46 MAP 60. Provider renewed order for 8mg levophed drip. Will titrate for a map of 65.
--- NOTE | 2020-09-19 10:45 | TELE.CONS ---
Consultation Reason for Consult: Reason for Consultation: resp failure covid History of Present Illness Vitals & Lab pt s/p proning overnight. Review of Systems Allergies: Coded Allergies: No Known Allergies (Unverified , 09/03/20) Scheduled Lisinopril (Lisinopril), 1 TAB PO BID, (Reported) Metformin Hcl (Metformin Hcl), 1,000 MG PO BID, (Reported) VITALS REVIEW VITALS Vital Sign - Last 24 Hours 09/19/20 09/19/20 09/19/20 09/19/20 07:00 07:15 07:30 07:45 Temp 99.7 99.5 99.5 99.5 Pulse 77 78 77 76 Resp 31 30 30 30 B/P (MAP) 131/69 (89) 110/52 (71) 130/66 (87) 120/55 (76) 114/54 (74) 121/56 (77) Pulse Ox 99 100 100 100 09/19/20 09/19/20 09/19/20 09/19/20 08:00 08:00 08:00 08:15 Temp 99.5 Pulse 87 74 88 Resp 31 30 30 B/P (MAP) 133/59 (83) 117/53 (74) Pulse Ox 94 100 96 O2 Delivery Mechanical Ventilator O2 Flow Rate 70.00 FiO2 70 09/19/20 09/19/20 09/19/20 09/19/20 08:16 08:16 08:18 08:30 Temp 99.5 Pulse 76 81 76 84 Resp 30 30 30 30 B/P (MAP) 148/72 (97) 132/59 (83) Pulse Ox 99 97 99 95 O2 Delivery Mechanical Ventilator FiO2 70 70 09/19/20 09/19/20 09/19/20 09/19/20 08:45 08:49 09:00 09:15 Temp 99.3 99.3 99.3 Pulse 86 87 87 Resp 30 30 30 B/P (MAP) 115/54 (74) 144/68 126/55 (78) 101/49 (66) 103/50 (67) Pulse Ox 94 94 94 09/19/20 09:30 Temp 99.1 Pulse 90 Resp 32 B/P (MAP) 103/47 (65) Pulse Ox 94 Intake and Output 09/19/20 06:00 Intake Total 4064.60 ml Output Total 4250 ml Balance -185.40 ml VTE VTE Risk Total Score: 2 VTE Risk Score VTE Risk: Score 0-1 = Low Risk (Aggressive mobilization; early ambulation; no VTE prophylaxis required) Score 2: Moderate Risk (Intermittent/Pneumatic Compression Device OR Lovenox/Heparin/Coumadin) Score 3-4: High Risk (Intermittent/Pneumatic Compression Device AND Lovenox/Heparin/Coumadin) Score > or =5: Highest Risk (Intermittent/Pneumatic Compression Device AND Lovenox/Heparin/Coumadin) Antico:Hep/LMWH/Coum/Xarelto: Yes VTE VTE Present on Admission: No Currently receiving anticoagul: No VTE Risk Total Score: 2 Antico:Hep/LMWH/Coum/Xarelto: Yes Assessment/Plan Assessment/Plan Assessment/Plan ACUTE RESPIRATORY FAILURE WITH HYPOXIA -current ABG 7.44/39/65 on AC 30, FiO2 70%, Vt 400 and PEEP 10. decrease f to 28 -cont sedation/paralytic -cont pronign 16:8 -IV lasix COVID PNEUMONIA - continue steroids - on antibiotic CAP regimen Diabetes -lantus (will decrease dose) -cont ISS DVT prophylaxis: lovenox Stress ulcer prophylaxis Glycemic control Enteral feedings 60 minutes critical care HIPAA compliant 2 way audio visual technology was used TAMICA JESSICA MD Sep 19, 2020 10:45
--- NOTE | 2020-09-19 10:48 | DIREP ---
PROCEDURE:CHEST 1 VIEW COMPARISON:[facility], CR, XRAY CHEST SINGLE VW, 09/17/2020, 06:23 AM. INDICATIONS:COVID FINDINGS: LUNGS/PLEURA:The tip of the endotracheal tube is at the level of the aortic arch. Diffuse bilateral infiltrates and ground-glass opacities are again seen which appear increased in the left lung compared to prior exam. VASCULATURE:Normal. Unremarkable pulmonary vasculature. CARDIAC:Normal. No cardiac silhouette abnormality or cardiomegaly. MEDIASTINUM:Normal. No visible mass or adenopathy. BONES:Normal. No fracture or visible bony lesion. OTHER:Sided PICC line is unchanged in position. The tip of a nasogastric tube is in the distal stomach. CONCLUSION:There are diffuse bilateral infiltrates and ground-glass opacities scattered throughout both lungs which appear increased in the left lung compared to prior exam. Dictated by: Jeison Hagan M.D. on 09/19/2020 at 10:44 AM
[2020-09-19] MEDS ORDERED: LEVOPHED 8 MG in NS 250ML 250 ML IV ONE (11:00)
[2020-09-19] MEDS: LEVOPHED 8 MG in NS 250ML 250 ML IV SCH (11:54)
[2020-09-19] MEDS: TYLENOL PO PRN (13:13)
[2020-09-19] MEDS: SUBLIMAZE IV SCH (13:14)
[2020-09-19] MEDS: NS IV SCH (13:14)
--- NOTE | 2020-09-19 23:09 | PRM.PN ---
Subjective Subjective Pt s/e this AM at bedside. no acute events overnight. minimal changes overall. Review of Systems Other Review of systems including general, HEENT, neck, cardiopulmonary, GI, , neuro-musculoskeletal, hematologic, oncologic, endocrinology, infectious disease, dermatologic and psychiatric were reviewed with the patient and are negative unless otherwise noted in the HPI. Exam Vital Signs Vital Signs Date Time Temp Pulse Resp B/P (MAP) Pulse Ox O2 Delivery O2 Flow Rate FiO2 09/19/20 22:45 78 28 98 70 09/19/20 22:45 Mechanical Ventilator 09/19/20 22:45 99.7 109/52 (71) 09/19/20 16:00 70.00 General Appearance: Other (intubated/sedated) HEENT: Atraumatic, PERRLA, Other (periorbital edema noted bilaterally) Respiratory: Other (diminished, with coarse lung sounds throughout) Cardiovascular: Regular rate, Normal S1, Normal S2, No murmurs Abdominal: Normal bowel sounds, Soft Extremities: No clubbing, No cyanosis, Normal pulses Skin: No rash, No breakdown, No lesions Neuro: Other (intubated/sedated) Psych/Mental Status: Other (intubated/sedated) Meds/Labs/Orders Medication List: Current Medications Medications (Trade) Dose Ordered Sig/Adrianna PRN Reason Start Time Stop Time Status Last Admin Cefepime HCl 2 gm/ Sodium Chloride 100 ml @ 100 mls/hr Q8H 09/19/20 09:00 10/19/20 08:59 09/19/20 17:00 Furosemide (Lasix) 40 mg DAILY 09/17/20 11:30 10/17/20 11:29 09/19/20 08:49 Lactulose (Cephulac) 20 gm DAILY 09/18/20 09:00 10/18/20 08:59 09/19/20 08:49 Norepinephrine Bitartrate 8 mg/ Sodium Chloride 250 ml @ 0 mls/hr TITRATE 09/19/20 12:00 10/19/20 11:59 09/19/20 11:54 Pantoprazole Sodium (Protonix Iv) 40 mg DAILY 09/17/20 09:00 10/17/20 08:59 09/19/20 08:49 Quetiapine Fumarate (Seroquel) 25 mg BID 09/17/20 09:30 10/17/20 09:29 09/19/20 20:35 Vecuronium [place] (Norcuron) 5 mg Q1HR PRN Additional Paralysis 09/18/20 09:00 10/18/20 08:59 Vecuronium [place] (Norcuron) 10 mg Q2 09/18/20 09:00 10/17/20 11:29 09/19/20 18:05 Lab results: Laboratory Tests Test 09/17/20 23:51 09/18/20 04:14 09/18/20 05:38 09/18/20 07:47 Bedside Glucose 135 173 White Blood Count 20.4 10^3/uL Red Blood Count 4.32 10^6/uL Hemoglobin 12.5 g/dL Hematocrit 38.3 % Mean Corpuscular Volume 88.7 fL Mean Corpuscular Hemoglobin 28.9 pg Mean Corpuscular Hemoglobin Concent 32.6 g/dL Red Cell Distribution Width 13.2 % Platelet Count 202 10^3/uL Mean Platelet Volume 10.0 fL Neutrophils (%) (Auto) 86.3 % Lymphocytes (%) (Auto) 4.3 % Monocytes (%) (Auto) 5.5 % Neutrophils # (Auto) 17.6 10^3/uL Lymphocytes # (Auto) 0.87 10^3/uL1 Monocytes # (Auto) 1.1 10^3/uL Absolute Immature Granulocyte (auto 0.74 10^3 u/L Absolute Eosinophils (auto) 0.1 10^3/uL Immature Granulocytes % 3.60 % Eosinophils % 0.3 % Basophils % 0.0 % Basophils # 0.0 10^3/uL Sodium Level 141 mmol/L Potassium Level 4.4 mmol/L Chloride Level 107.0 mmol/L Carbon Dioxide Level 25.2 mmol/L Anion Gap 13.2 Blood Urea Nitrogen 62 mg/dL Creatinine 1.21 mg/dL Estimated GFR () 73.1 Est GFR (CKD-EPI)(Non-Afr [place]e) 60.4 BUN/Creatinine Ratio 51.0 Glucose Level 129 mg/dL Calcium Level 7.0 mg/dL Total Bilirubin 0.3 mg/dL Aspartate Amino Transf (AST/SGOT) 20 U/L Alanine Aminotransferase (ALT/SGPT) 24 U/L Alkaline Phosphatase 72 U/L Total Protein 4.9 g/dL Albumin 1.8 g/dL Globulin 3.1 Albumin/Globulin Ratio 0.580 Blood Gas Sample Site LENOX Blood Gas pH 7.340 Blood Gas PCO2 47.4 mmHg Blood Gas PO2 76.1 mmHg Blood Gas HCO3 25.0 mmol/L Blood Gas Base Excess -1.1 mmol/L Abdi Test N/A Arterial Blood Oxygen Saturation 94.9 % Deoxyhemoglobin 5.1 % Carboxyhemoglobin 0.5 % Methemoglobin 0.4 % Total Hemoglobin 12.9 % Total Oxygen Concentration 17.1 % Blood Gas Temperature 37 Oxygen Delivery Method (LAB) VENT Blood Gas Vent Mode ACVC Blood Gas Vent Rate 25 FiO2 80 % Blood Gas Tidal Volume 400 ML Blood Gas PEEP 12 CMH2O Total Carbon Dioxide 26.5 mmol/L Test 09/18/20 11:26 09/18/20 18:01 09/18/20 20:17 09/18/20 23:51 Bedside Glucose 158 110 76 71 Test 09/19/20 04:30 09/19/20 05:19 09/19/20 05:21 09/19/20 05:25 White Blood Count 18.2 10^3/uL Red Blood Count 4.22 10^6/uL Hemoglobin 12.5 g/dL Hematocrit 36.8 % Mean Corpuscular Volume 87.2 fL Mean Corpuscular Hemoglobin 29.6 pg Mean Corpuscular Hemoglobin Concent 34.0 g/dL Red Cell Distribution Width 13.2 % Platelet Count 137 10^3/uL Mean Platelet Volume 10.4 fL Neutrophils (%) (Auto) 88.7 % Lymphocytes (%) (Auto) 4.6 % Monocytes (%) (Auto) 2.9 % Neutrophils # (Auto) 16.1 10^3/uL Lymphocytes # (Auto) 0.83 10^3/uL1 Monocytes # (Auto) 0.5 10^3/uL Absolute Immature Granulocyte (auto 0.38 10^3 u/L Absolute Eosinophils (auto) 0.3 10^3/uL Immature Granulocytes % 2.10 % Eosinophils % 1.7 % Basophils % 0.0 % Basophils # 0.0 10^3/uL D-Dimer 1.97 mg/L Sodium Level 140 mmol/L Potassium Level 4.1 mmol/L Chloride Level 106.0 mmol/L Carbon Dioxide Level 30.9 mmol/L Anion Gap 7.2 Blood Urea Nitrogen 40 mg/dL Creatinine 0.64 mg/dL Estimated GFR () 152.3 Est GFR (CKD-EPI)(Non-Afr [place]e) 125.9 BUN/Creatinine Ratio 62.0 Glucose Level 121 mg/dL Calcium Level 7.4 mg/dL Phosphorus Level 3.0 mg/dL Magnesium Level 2.5 mg/dL Ferritin 1809 ng/mL Total Bilirubin 0.5 mg/dL Aspartate Amino Transf (AST/SGOT) 28 U/L Alanine Aminotransferase (ALT/SGPT) 32 U/L Alkaline Phosphatase 67 U/L Lactate Dehydrogenase 213 U/L Total Creatine Kinase 20 U/L C-Reactive Protein 18.69 mg/dL Total Protein 5.0 g/dL Albumin 1.5 g/dL Globulin 3.5 Albumin/Globulin Ratio 0.428 Triglycerides Level 91 mg/dL Procalcitonin 1.44 ng/mL Bedside Glucose 201 68 63 Test 09/19/20 07:31 09/19/20 11:30 09/19/20 16:33 Blood Gas Sample Site [place]OM[place] Blood Gas pH 7.440 Blood Gas PCO2 39.8 mmHg Blood Gas PO2 65.1 mmHg Blood Gas HCO3 26.4 mmol/L Blood Gas Base Excess 2.2 mmol/L Abdi Test N/A Arterial Blood Oxygen Saturation 93.0 % Deoxyhemoglobin 6.9 % Carboxyhemoglobin 0.9 % Methemoglobin 0.4 % Total Hemoglobin 13.1 % Total Oxygen Concentration 16.9 % Blood Gas Temperature 37 Oxygen Delivery Method (LAB) VENT Blood Gas Vent Mode ACVC Blood Gas Vent Rate 30 FiO2 70 % Blood Gas Tidal Volume 400 ML Blood Gas PEEP 10 CMH2O Total Carbon Dioxide 27.6 mmol/L Bedside Glucose 162 165 My orders: Assessment/Plan Assessment/Plan Assessment/Plan Assessment/Plan A 64 y.o. male w/ PMHx significant for HTN, HLD, DM II, who was admitted on Sep 03 for Acute Hypoxemic respiratory failure. Initially, his COVID testing returned negative and his hypoxemia was thought to be 2/2 another etiology. However, after no etiology could be elucidated, a COVID PCR was repeated and returned positive. He was then started on treatment for COVID-19 with Azithromycin, steroids, Remdesivir, CCP, and Zinc/Vitamin C. Despite treatment, his respiratory status slowly declined and he was intubated on Sep 10. At this time, he is stable on current sedation and intermittently requiring pressors pressors. However, ABG obtained this AM shows a P/F ratio of < 100. He was started on proning protocol on Sep 18, 16h prone and 8h supine. COVID PNEUMONIA SEVERE ARDS ACUTE HYPOXEMIC RESPIRATORY FAILURE SEPTIC SHOCK - Completed 5 days of Remdesivir - Completed 5 days of Azithromycin - Pt was started on Dexamethasone initially for treatment of COVID; he was transitioned to Methylprednisolone at some point, which was discontinued on Sep 17. - Pt has completed 5 days of Rocephin for CAP PNA today; will discontinue - Duonebs q4h scheduled - Given P/F ratio, will start proning. 16h prone, 8h supine. - continue sedation with RASS goal of < - 2 - Vecuronium pushes for paralysis - Pt meets criteria for septic shock given +SIRS, infection, and hypotension requiring pressors - goal fluid balance should be negative to keep Pt as dry as possible ESSENTIAL HYPERTENSION - stable with pressors - holding home antihypertensives for now T2DM - blood sugars very labile - Currently on SQ Lantus 20 BID, with Humalog SSI#2 - enteral feeding ongoing - monitor for hypoglycemia now that Pt is off steroids STAGE I ZOEY - likely pre-renal given hypotension and septic shock requiring pressors - continue to monitor Cr closely; currently on the downtrend - avoid further hypotension Keep MAP > 60 - avoid nephrotoxins where possible - monitor UOP; - Keep pt as dry as possible while maintaining UOP/renal function Feeding - GLUCERNA 1.5CAL Analgesia - fentanyl gtt Sedation - Propofol VTE ppx - lovenox Head of bed - Flat when prone, 30 deg when supine GI ppx - protonix Spontaneous breathing trial - not ready Bowels care - resumed BMs 09/18; rectal tube placed UOP - Crawford in place Time Spent: > 35 minutes spent in chart review, patient evaluation, coordination of care, and documentation, including 30 min of critical care time BAMBI KAUR DO Sep 19, 2020 23:09
[2020-09-20] VITALS (78 sets, daily range): BP systolic 73–209; BP diastolic 38–82
[2020-09-20] MEDS: HUMALOG SQ SCH ×4 (00:05→16:57)
[2020-09-20] MEDS: NORCURON IV SCH ×5 (00:10→08:00)
[2020-09-20] MEDS: VENTOLIN HFA IH SCH ×3 (00:15→08:30)
[2020-09-20] MEDS: MAXIPIME 2 GM in NS 100ML 100 ML IV SCH ×2 (02:00→09:00)
[2020-09-20] MEDS: D5W-1/2NS 1000ML 1,000 ML IV SCH ×2 (02:30→13:00)
[2020-09-20] MEDS: DIPRIVAN IV SCH ×5 (03:30→23:05)
[2020-09-20 04:44] LABS: BASOPHIL % 0.1 % (0.0-0.2); EOSINOPHIL # 0.3 10^3/uL (0.0-0.2); EOSINOPHIL % 1.9 % (0.0-5.0); LYMPHOCYTES # 0.47 10^3/uL1 (1.0-4.8); LYMPHOCYTES % 2.8 % (24.0-44.0); MEAN CORP HGB 28.5 pg (26-34); MONOCYTES # 0.5 10^3/uL (0.3-0.8); MONOCYTES % 3.1 % (5.0-12.0); NEUTROPHILS % 90.4 % (41.0-85.0); PLATELET COUNT 127 10^3/uL (150-400); RED CELL DISTRIBUTION WIDTH 13.3 % (11.5-14.5)
[2020-09-20 05:11] LABS: CALCIUM 7.3 mg/dL (8.4-10.5); CARBON DIOXIDE 29.6 mmol/L (20.0-32)
[2020-09-20 07:44] LABS: ABG PCO2 42.9 mmHg (35.0-45.0); BE(B) -0.4 mmol/L (-2.0-2.0); HCO3act 24.8 mmol/L (22.0-26.0); pO2 64.1 mmHg (80.0-100.0)
[2020-09-20] MEDS ORDERED: WATER ONE (08:08)
[2020-09-20] MEDS: SEROQUEL PO SCH ×2 (09:00→21:13)
[2020-09-20] MEDS: VITAMIN C PO SCH ×2 (09:00→21:13)
[2020-09-20] MEDS: PROTONIX IV IV SCH (09:00)
[2020-09-20] MEDS: CEPHULAC NG SCH (09:00)
[2020-09-20] MEDS: LOVENOX SQ SCH ×2 (09:00→21:14)
[2020-09-20] MEDS: LANTUS SQ SCH ×2 (09:00→21:14)
[2020-09-20] MEDS: ZINC SULFATE PO SCH ×2 (09:00→21:13)
[2020-09-20] MEDS: COLACE PO SCH ×2 (09:00→21:13)
[2020-09-20] MEDS: LASIX IV SCH (09:00)
--- NOTE | 2020-09-20 10:09 | TELE.CONS ---
Consultation Reason for Consult: Reason for Consultation: resp failure History of Present Illness History of Patient Comments s/p pronation now supine heavily sedated high 02 demand on high peep Review of Systems Allergies: Coded Allergies: No Known Allergies (Unverified , 09/03/20) Scheduled Lisinopril (Lisinopril), 1 TAB PO BID, (Reported) Metformin Hcl (Metformin Hcl), 1,000 MG PO BID, (Reported) VITALS REVIEW VITALS Vital Sign - Last 24 Hours 09/20/20 09/20/20 09/20/20 09/20/20 07:00 07:15 07:30 07:45 Temp 99.1 99.0 99.0 99.0 Pulse 79 78 77 76 Resp B/P (MAP) 140/69 (92) 118/54 (75) 116/53 (74) 112/52 (72) 123/55 (77) Pulse Ox 97 97 97 97 09/20/20 09/20/20 09/20/20 09/20/20 08:00 08:00 08:00 08:15 Temp 99.0 99.0 Pulse 77 101 79 Resp B/P (MAP) 130/65 (86) 100/49 (66) 111/52 (71) Pulse Ox 97 95 98 O2 Delivery Mechanical Ventilator O2 Flow Rate 70.00 FiO2 70 09/20/20 09/20/20 09/20/20 09/20/20 08:17 08:17 08:30 08:30 Temp 98.6 Pulse 79 79 99 79 Resp Pulse Ox 98 98 96 98 O2 Delivery Mechanical Ventilator FiO2 70 70 09/20/20 09/20/20 09/20/20 09/20/20 08:45 09:00 09:00 09:15 Temp 98.6 98.2 98.2 Pulse 89 92 102 B/P (MAP) 154/67 (96) 169/74 161/81 (107) 123/58 (79) 140/66 (90) Pulse Ox 96 95 95 09/20/20 09/20/20 09:30 09:45 Temp 98.2 Pulse 102 B/P (MAP) 117/56 (76) Pulse Ox 95 O2 Delivery Mechanical Ventilator FiO2 95 LABS LAB RESULTS labs and radiology reviewed VTE VTE Risk Total Score: 2 VTE Risk Score VTE Risk: Score 0-1 = Low Risk (Aggressive mobilization; early ambulation; no VTE prophylaxis required) Score 2: Moderate Risk (Intermittent/Pneumatic Compression Device OR Lovenox/Heparin/Coumadin) Score 3-4: High Risk (Intermittent/Pneumatic Compression Device AND Lovenox/Heparin/Coumadin) Score > or =5: Highest Risk (Intermittent/Pneumatic Compression Device AND Lovenox/Heparin/Coumadin) Antico:Hep/LMWH/Coum/Xarelto: Yes VTE VTE Present on Admission: No Currently receiving anticoagul: No VTE Risk Total Score: 2 Antico:Hep/LMWH/Coum/Xarelto: Yes Assessment/Plan Assessment/Plan Assessment/Plan ACUTE RESPIRATORY FAILURE WITH HYPOXIA -current ABG 7.44/39/65 on AC 30, FiO2 70%, Vt 400 and PEEP 10. decrease f to 28 -cont sedation/paralytic -cont pronign 16:8 -IV lasix COVID PNEUMONIA - continue steroids - on antibiotic CAP regimen Diabetes -lantus (will decrease dose) -cont ISS DVT prophylaxis: lovenox Stress ulcer prophylaxis Glycemic control Enteral feedings 60 minutes critical care HIPAA compliant 2 way audio visual technology was used Problems: (1) Pneumonia due to COVID-19 virus ICD Code: U07.1 - COVID-19; J12.82 - Pneumonia due to coronavirus disease 2019 SNOMED: [id number] (2) Acute respiratory failure ICD Code: J96.00 - Acute respiratory failure, unspecified whether with hypoxia or hypercapnia SNOMED: 10499637 Plan ACUTE RESPIRATORY FAILURE WITH HYPOXIA ARDS COVID PNA DM no signs of bacterial infx cx negative d/c cefepime high 02 demand unable to wean cont sedation w/ prop/fentanyl paralytics prn plan to prone today lasix as needed keep negative lovenox gi proph tube feeds 60 minutes critical care HIPAA compliant 2 way audio visual technology was used Duration Duration or Time Spent with Pa: 60 mins WHITNEY GAO MD Sep 20, 2020 10:09
[2020-09-20] MEDS: NORCURON IV PRN ×2 (11:29→16:00)
[2020-09-20] MEDS: TYLENOL PO PRN (13:36)
--- NOTE | 2020-09-20 14:30 | NUR ---
Notified Dr. Vasquez, resumed administration of levophed drip. Patient blood pressure decreased to high 70's/40's after repositioning. Also noted patient has maintained oxygen saturation 99-100 while supine, reviewed need for proning. Provider wants to keep with scheduled proning.
[2020-09-20] MEDS: NS IV SCH (15:25)
[2020-09-20] MEDS: SUBLIMAZE IV SCH (15:25)
--- NOTE | 2020-09-20 16:00 | NUR ---
Proned patient with RT Van and MIGUEL Austin. Lines and tubes secured. No adverse events. Patient oxygen saturation 93-96 percent. Blood pressure maintaining MAP above 65, levophed drip currently on hold.
[2020-09-20] MEDS ORDERED: NS IV ONE (17:00)
[2020-09-20] MEDS ORDERED: VASOPRESSIN IV ONE (17:00)
--- NOTE | 2020-09-20 19:53 | DIET.OP ---
Nutrition Asmt/Malnutrit 2-17 Actual Date of Review: Sep 20, 2020 Diagnosis: Covid 19, Acute Hypoxemic Respiratory Failure Pertinent Medical Hx/Surgical: HTN, HLD, T2DM Subjective Information: telehealth f/u- pt remains intubated and sedated. Propofol at 40 mcg/kg/min providing 545 kcal. Pt is being proned 16:8. TF held while prone per MD. Current Diet Order/Nutrition S: NPO Patient /S.O: Not Indicated Pertinent Meds Current Medications Medications (Trade) Dose Ordered Sig/Adrianna PRN Reason Start Time Stop Time Status Last Admin Albuterol Sulfate (Ventolin Hfa) 2 inh PRN PRN wheezing 09/20/20 10:30 10/20/20 10:29 Lactulose (Cephulac) 20 gm DAILY 09/18/20 09:00 10/18/20 08:59 09/20/20 09:00 Midazolam HCl (Versed) 2 mg Q2H PRN SEDATION 09/20/20 10:30 10/20/20 10:29 UNV Norepinephrine Bitartrate 8 mg/ Sodium Chloride 250 ml @ 0 mls/hr TITRATE 09/19/20 12:00 10/19/20 11:59 09/19/20 11:54 Vecuronium [place] (Norcuron) 5 mg Q1HR PRN Additional Paralysis 09/18/20 09:00 10/18/20 08:59 09/20/20 16:00 Vecuronium [place] (Norcuron) 10 mg Q3H PRN vent/dsynchonry hypoxia 09/20/20 10:30 10/20/20 10:29 09/20/20 11:29 Pertinent Labs Laboratory Tests Test 09/18/20 20:17 09/18/20 23:51 09/19/20 04:30 09/19/20 05:19 Bedside Glucose 76 71 201 White Blood Count 18.2 10^3/uL Red Blood Count 4.22 10^6/uL Hemoglobin 12.5 g/dL Hematocrit 36.8 % Mean Corpuscular Volume 87.2 fL Mean Corpuscular Hemoglobin 29.6 pg Mean Corpuscular Hemoglobin Concent 34.0 g/dL Red Cell Distribution Width 13.2 % Platelet Count 137 10^3/uL Mean Platelet Volume 10.4 fL Neutrophils (%) (Auto) 88.7 % Lymphocytes (%) (Auto) 4.6 % Monocytes (%) (Auto) 2.9 % Neutrophils # (Auto) 16.1 10^3/uL Lymphocytes # (Auto) 0.83 10^3/uL1 Monocytes # (Auto) 0.5 10^3/uL Absolute Immature Granulocyte (auto 0.38 10^3 u/L Absolute Eosinophils (auto) 0.3 10^3/uL Immature Granulocytes % 2.10 % Eosinophils % 1.7 % Basophils % 0.0 % Basophils # 0.0 10^3/uL D-Dimer 1.97 mg/L Sodium Level 140 mmol/L Potassium Level 4.1 mmol/L Chloride Level 106.0 mmol/L Carbon Dioxide Level 30.9 mmol/L Anion Gap 7.2 Blood Urea Nitrogen 40 mg/dL Creatinine 0.64 mg/dL Estimated GFR () 152.3 Est GFR (CKD-EPI)(Non-Afr Georgian) 125.9 BUN/Creatinine Ratio 62.0 Glucose Level 121 mg/dL Calcium Level 7.4 mg/dL Phosphorus Level 3.0 mg/dL Magnesium Level 2.5 mg/dL Ferritin 1809 ng/mL Total Bilirubin 0.5 mg/dL Aspartate Amino Transf (AST/SGOT) 28 U/L Alanine Aminotransferase (ALT/SGPT) 32 U/L Alkaline Phosphatase 67 U/L Lactate Dehydrogenase 213 U/L Total Creatine Kinase 20 U/L C-Reactive Protein 18.69 mg/dL Total Protein 5.0 g/dL Albumin 1.5 g/dL Globulin 3.5 Albumin/Globulin Ratio 0.428 Triglycerides Level 91 mg/dL Procalcitonin 1.44 ng/mL Test 09/19/20 05:21 09/19/20 05:25 09/19/20 07:31 09/19/20 11:30 Bedside Glucose 68 63 162 Blood Gas Sample Site [place] Blood Gas pH 7.440 Blood Gas PCO2 39.8 mmHg Blood Gas PO2 65.1 mmHg Blood Gas HCO3 26.4 mmol/L Blood Gas Base Excess 2.2 mmol/L Abdi Test N/A Arterial Blood Oxygen Saturation 93.0 % Deoxyhemoglobin 6.9 % Carboxyhemoglobin 0.9 % Methemoglobin 0.4 % Total Hemoglobin 13.1 % Total Oxygen Concentration 16.9 % Blood Gas Temperature 37 Oxygen Delivery Method (LAB) VENT Blood Gas Vent Mode ACVC Blood Gas Vent Rate 30 FiO2 70 % Blood Gas Tidal Volume 400 ML Blood Gas PEEP 10 CMH2O Total Carbon Dioxide 27.6 mmol/L Test 09/19/20 16:33 09/20/20 00:03 09/20/20 04:13 09/20/20 05:58 Bedside Glucose 165 266 72 White Blood Count 16.6 10^3/uL Red Blood Count 4.21 10^6/uL Hemoglobin 12.0 g/dL Hematocrit 37.1 % Mean Corpuscular Volume 88.1 fL Mean Corpuscular Hemoglobin 28.5 pg Mean Corpuscular Hemoglobin Concent 32.3 g/dL Red Cell Distribution Width 13.3 % Platelet Count 127 10^3/uL Mean Platelet Volume 11.0 fL Neutrophils (%) (Auto) 90.4 % Lymphocytes (%) (Auto) 2.8 % Monocytes (%) (Auto) 3.1 % Neutrophils # (Auto) 15.0 10^3/uL Lymphocytes # (Auto) 0.47 10^3/uL1 Monocytes # (Auto) 0.5 10^3/uL Absolute Immature Granulocyte (auto 0.28 10^3 u/L Absolute Eosinophils (auto) 0.3 10^3/uL Immature Granulocytes % 1.70 % Eosinophils % 1.9 % Basophils % 0.1 % Basophils # 0.0 10^3/uL Sodium Level 140 mmol/L Potassium Level 4.1 mmol/L Chloride Level 106.0 mmol/L Carbon Dioxide Level 29.6 mmol/L Anion Gap 8.5 Blood Urea Nitrogen 24 mg/dL Creatinine 0.58 mg/dL Estimated GFR () 170.7 Est GFR (CKD-EPI)(Non-Afr Georgian) 141.1 BUN/Creatinine Ratio 41.0 Glucose Level 110 mg/dL Calcium Level 7.3 mg/dL Total Bilirubin 0.7 mg/dL Aspartate Amino Transf (AST/SGOT) 27 U/L Alanine Aminotransferase (ALT/SGPT) 28 U/L Alkaline Phosphatase 70 U/L Total Protein 4.9 g/dL Albumin 1.4 g/dL Globulin 3.5 Albumin/Globulin Ratio 0.400 Test 09/20/20 07:30 09/20/20 11:38 09/20/20 16:35 Blood Gas Sample Site [place] Blood Gas pH 7.380 Blood Gas PCO2 42.9 mmHg Blood Gas PO2 64.1 mmHg Blood Gas HCO3 24.8 mmol/L Blood Gas Base Excess -0.4 mmol/L Abdi Test N/A Arterial Blood Oxygen Saturation 92.2 % Deoxyhemoglobin 7.8 % Carboxyhemoglobin 0.1 % Methemoglobin 0.3 % Total Hemoglobin 12.5 % Total Oxygen Concentration 16.2 % Blood Gas Temperature 37.0 Oxygen Delivery Method (LAB) VENT Blood Gas Vent Mode ACVC Blood Gas Vent Rate 28 FiO2 70 % Blood Gas Tidal Volume 400 ML Blood Gas PEEP 10 CMH2O Total Carbon Dioxide 26.1 mmol/L Bedside Glucose 182 142 Height (Feet): 5 Height (Inches): 6 Current Weight: 187 %IBW: 132 Recent Weight Change: Yes (wt continues to trend up the last 8 days) Weight Status: Overweight GI Symptoms: Last BM (4 BMs 09/18) Food Allergies: No Cultural/Ethnic/Yazdanism Marylou: none identified BEE in Kcals: Use Current Weight Calories/Kcals/Kg: [address] 2002 (09/20) Kcals Calculated: 1817 kcal Protein: Use Current Weight Protein g/k.8-1 g/kg Protein Calculated: 60-75g Fluid: ml: 8535-3256 ml or 1 ml/kcal Nutritional Problem: Nutr. Problems Present Problems: Inadequate energy intake Etiology: TF held while proned Signs/Symptoms: TF not meeting nutrition needs. RD Comments: 1. Recommend Glucerna 1.5 210cc Q2hr while pt is supine for a goal of 4-bolus pushes of 210cc during the 8 hr period that he is supine. This will provide 1260 kcal, 69 g pro, 112 g CHO, and 63 g fat which will meet 100% of his nutrition needs in combination with calories from propofol. 2. Recommend 160cc water flushes Q4 hrs regardless of position. If MD would prefer no water flushes when prone then recommend maintaining hydration with IV fluids as needed. 3. Monitor K, Mg, and PO4 before and during EN initiation. 4. Monitor BG Q4hr and correct as indicated. RD to monitor TF tolerance, weight, labs, care plan, and vent and sedation setting. Will update recommendations accordingly. Expected Outcomes TF meeting 100% of pts needs the next 2 days and tolerated well. Discharge goal is pending. Malnutrtion/Nutrition Risk Edu: No MD Notificiation Needed?: No Jessica Morris Sep 20, 2020 19:53
--- NOTE | 2020-09-20 23:26 | PRM.PN ---
Subjective Subjective Pt s/e this AM. no acute events overnight. Pt was successfully proned yesterday afternoon and supined this AM. No other major changes Review of Systems Other Review of systems including general, HEENT, neck, cardiopulmonary, GI, , neuro-musculoskeletal, hematologic, oncologic, endocrinology, infectious disease, dermatologic and psychiatric were reviewed with the patient and are negative unless otherwise noted in the HPI. Exam Vital Signs Vital Signs Date Time Temp Pulse Resp B/P (MAP) Pulse Ox O2 Delivery O2 Flow Rate FiO2 09/20/20 22:30 99.5 80 20 146/63 (90) 99 09/20/20 20:30 70 09/20/20 20:30 Mechanical Ventilator 09/20/20 12:00 70.00 General Appearance: Other (intubated/sedated) HEENT: Atraumatic, PERRLA, Other (periorbital edema ) Respiratory: Other (diminished and coarse lung sounds bilaterally) Cardiovascular: Regular rate, Normal S1, Normal S2, No murmurs Abdominal: Normal bowel sounds, Soft Extremities: No clubbing, No cyanosis, No edema, Normal pulses Skin: No rash, No breakdown, No lesions Neuro: Other (intubated/sedated) Psych/Mental Status: Other (intubated/sedated) Meds/Labs/Orders Medication List: Current Medications Medications (Trade) Dose Ordered Sig/Adrianna PRN Reason Start Time Stop Time Status Last Admin Albuterol Sulfate (Ventolin Hfa) 2 inh PRN PRN wheezing 09/20/20 10:30 10/20/20 10:29 Lactulose (Cephulac) 20 gm DAILY 09/18/20 09:00 10/18/20 08:59 09/20/20 09:00 Midazolam HCl (Versed) 2 mg Q2H PRN SEDATION 09/20/20 10:30 10/20/20 10:29 UNV Norepinephrine Bitartrate 8 mg/ Sodium Chloride 250 ml @ 0 mls/hr TITRATE 09/19/20 12:00 10/19/20 11:59 09/19/20 11:54 Vecuronium Platinum (Norcuron) 5 mg Q1HR PRN Additional Paralysis 09/18/20 09:00 10/18/20 08:59 09/20/20 16:00 Vecuronium Platinum (Norcuron) 10 mg Q3H PRN vent/dsynchonry hypoxia 09/20/20 10:30 10/20/20 10:29 09/20/20 11:29 Lab results: Laboratory Tests Test 09/18/20 23:51 09/19/20 04:30 09/19/20 05:19 09/19/20 05:21 Bedside Glucose 71 201 68 White Blood Count 18.2 10^3/uL Red Blood Count 4.22 10^6/uL Hemoglobin 12.5 g/dL Hematocrit 36.8 % Mean Corpuscular Volume 87.2 fL Mean Corpuscular Hemoglobin 29.6 pg Mean Corpuscular Hemoglobin Concent 34.0 g/dL Red Cell Distribution Width 13.2 % Platelet Count 137 10^3/uL Mean Platelet Volume 10.4 fL Neutrophils (%) (Auto) 88.7 % Lymphocytes (%) (Auto) 4.6 % Monocytes (%) (Auto) 2.9 % Neutrophils # (Auto) 16.1 10^3/uL Lymphocytes # (Auto) 0.83 10^3/uL1 Monocytes # (Auto) 0.5 10^3/uL Absolute Immature Granulocyte (auto 0.38 10^3 u/L Absolute Eosinophils (auto) 0.3 10^3/uL Immature Granulocytes % 2.10 % Eosinophils % 1.7 % Basophils % 0.0 % Basophils # 0.0 10^3/uL D-Dimer 1.97 mg/L Sodium Level 140 mmol/L Potassium Level 4.1 mmol/L Chloride Level 106.0 mmol/L Carbon Dioxide Level 30.9 mmol/L Anion Gap 7.2 Blood Urea Nitrogen 40 mg/dL Creatinine 0.64 mg/dL Estimated GFR () 152.3 Est GFR (CKD-EPI)(Non-Afr Citizen Of [place]) 125.9 BUN/Creatinine Ratio 62.0 Glucose Level 121 mg/dL Calcium Level 7.4 mg/dL Phosphorus Level 3.0 mg/dL Magnesium Level 2.5 mg/dL Ferritin 1809 ng/mL Total Bilirubin 0.5 mg/dL Aspartate Amino Transf (AST/SGOT) 28 U/L Alanine Aminotransferase (ALT/SGPT) 32 U/L Alkaline Phosphatase 67 U/L Lactate Dehydrogenase 213 U/L Total Creatine Kinase 20 U/L C-Reactive Protein 18.69 mg/dL Total Protein 5.0 g/dL Albumin 1.5 g/dL Globulin 3.5 Albumin/Globulin Ratio 0.428 Triglycerides Level 91 mg/dL Procalcitonin 1.44 ng/mL Test 09/19/20 05:25 09/19/20 07:31 09/19/20 11:30 09/19/20 16:33 Bedside Glucose 63 162 165 Blood Gas Sample Site [place] Blood Gas pH 7.440 Blood Gas PCO2 39.8 mmHg Blood Gas PO2 65.1 mmHg Blood Gas HCO3 26.4 mmol/L Blood Gas Base Excess 2.2 mmol/L Abdi Test N/A Arterial Blood Oxygen Saturation 93.0 % Deoxyhemoglobin 6.9 % Carboxyhemoglobin 0.9 % Methemoglobin 0.4 % Total Hemoglobin 13.1 % Total Oxygen Concentration 16.9 % Blood Gas Temperature 37 Oxygen Delivery Method (LAB) VENT Blood Gas Vent Mode ACVC Blood Gas Vent Rate 30 FiO2 70 % Blood Gas Tidal Volume 400 ML Blood Gas PEEP 10 CMH2O Total Carbon Dioxide 27.6 mmol/L Test 09/20/20 00:03 09/20/20 04:13 09/20/20 05:58 09/20/20 07:30 Bedside Glucose 266 72 White Blood Count 16.6 10^3/uL Red Blood Count 4.21 10^6/uL Hemoglobin 12.0 g/dL Hematocrit 37.1 % Mean Corpuscular Volume 88.1 fL Mean Corpuscular Hemoglobin 28.5 pg Mean Corpuscular Hemoglobin Concent 32.3 g/dL Red Cell Distribution Width 13.3 % Platelet Count 127 10^3/uL Mean Platelet Volume 11.0 fL Neutrophils (%) (Auto) 90.4 % Lymphocytes (%) (Auto) 2.8 % Monocytes (%) (Auto) 3.1 % Neutrophils # (Auto) 15.0 10^3/uL Lymphocytes # (Auto) 0.47 10^3/uL1 Monocytes # (Auto) 0.5 10^3/uL Absolute Immature Granulocyte (auto 0.28 10^3 u/L Absolute Eosinophils (auto) 0.3 10^3/uL Immature Granulocytes % 1.70 % Eosinophils % 1.9 % Basophils % 0.1 % Basophils # 0.0 10^3/uL Sodium Level 140 mmol/L Potassium Level 4.1 mmol/L Chloride Level 106.0 mmol/L Carbon Dioxide Level 29.6 mmol/L Anion Gap 8.5 Blood Urea Nitrogen 24 mg/dL Creatinine 0.58 mg/dL Estimated GFR () 170.7 Est GFR (CKD-EPI)(Non-Afr Citizen Of [place]) 141.1 BUN/Creatinine Ratio 41.0 Glucose Level 110 mg/dL Calcium Level 7.3 mg/dL Total Bilirubin 0.7 mg/dL Aspartate Amino Transf (AST/SGOT) 27 U/L Alanine Aminotransferase (ALT/SGPT) 28 U/L Alkaline Phosphatase 70 U/L Total Protein 4.9 g/dL Albumin 1.4 g/dL Globulin 3.5 Albumin/Globulin Ratio 0.400 Blood Gas Sample Site [place] Blood Gas pH 7.380 Blood Gas PCO2 42.9 mmHg Blood Gas PO2 64.1 mmHg Blood Gas HCO3 24.8 mmol/L Blood Gas Base Excess -0.4 mmol/L Abdi Test N/A Arterial Blood Oxygen Saturation 92.2 % Deoxyhemoglobin 7.8 % Carboxyhemoglobin 0.1 % Methemoglobin 0.3 % Total Hemoglobin 12.5 % Total Oxygen Concentration 16.2 % Blood Gas Temperature 37.0 Oxygen Delivery Method (LAB) VENT Blood Gas Vent Mode ACVC Blood Gas Vent Rate 28 FiO2 70 % Blood Gas Tidal Volume 400 ML Blood Gas PEEP 10 CMH2O Total Carbon Dioxide 26.1 mmol/L Test 09/20/20 11:38 09/20/20 16:35 Bedside Glucose 182 142 My orders: Assessment/Plan Assessment/Plan Assessment/Plan Assessment/Plan A 64 y.o. male w/ PMHx significant for HTN, HLD, DM II, who was admitted on Sep 03 for Acute Hypoxemic respiratory failure. Initially, his COVID testing returned negative and his hypoxemia was thought to be 2/2 another etiology. However, after no etiology could be elucidated, a COVID PCR was repeated and returned positive. He was then started on treatment for COVID-19 with Azithromycin, steroids, Remdesivir, CCP, and Zinc/Vitamin C. Despite treatment, his respiratory status slowly declined and he was intubated on Sep 10. At this time, he is stable on current sedation and intermittently requiring pressors pressors. However, ABG obtained this AM shows a P/F ratio of < 100. He was started on proning protocol on Sep 18, 16h prone and 8h supine. COVID PNEUMONIA SEVERE ARDS ACUTE HYPOXEMIC RESPIRATORY FAILURE SEPTIC SHOCK - Telemed Intensivists following; appreciate assistance with vent and medical management - Completed 5 days of Remdesivir - Completed 5 days of Azithromycin - Pt was started on Dexamethasone initially for treatment of COVID; he was transitioned to Methylprednisolone at some point, which was discontinued on Sep 17. - Pt has completed 5 days of Rocephin for CAP PNA today; will discontinue - Duonebs q4h scheduled - Given P/F ratio, will start proning. 16h prone, 8h supine. - continue sedation with RASS goal of < - 2 - Vecuronium pushes for paralysis - Pt meets criteria for septic shock given +SIRS, infection, and hypotension requiring pressors - goal fluid balance should be negative to keep Pt as dry as possible ESSENTIAL HYPERTENSION - stable with pressors - holding home antihypertensives for now T2DM - blood sugars very labile - Currently on SQ Lantus 20 BID, with Humalog SSI#2 - enteral feeding ongoing - monitor for hypoglycemia now that Pt is off steroids STAGE I ZOEY - likely pre-renal given hypotension and septic shock requiring pressors - continue to monitor Cr closely; currently on the downtrend - avoid further hypotension Keep MAP > 60 - avoid nephrotoxins where possible - monitor UOP; - Keep pt as dry as possible while maintaining UOP/renal function Feeding - GLUCERNA 1.5CAL Analgesia - fentanyl gtt Sedation - Propofol VTE ppx - lovenox Head of bed - Flat when prone, 30 deg when supine GI ppx - protonix Spontaneous breathing trial - not ready Bowels care - resumed BMs 09/18; rectal tube placed UOP - Crawford in place Time Spent: > 35 minutes spent in chart review, patient evaluation, coordination of care, and documentation, including 30 min of critical care time BAMBI KAUR DO Sep 20, 2020 23:25
[2020-09-21] VITALS (78 sets, daily range): BP systolic -4–207; BP diastolic -5–105
[2020-09-21] MEDS: NORCURON IV PRN ×4 (00:05→17:19)
[2020-09-21] MEDS: DIPRIVAN IV SCH ×5 (02:35→20:40)
[2020-09-21 04:28] LABS: BASOPHIL % 0.1 % (0.0-0.2); EOSINOPHIL # 0.3 10^3/uL (0.0-0.2); EOSINOPHIL % 2.4 % (0.0-5.0); LYMPHOCYTES # 0.41 10^3/uL1 (1.0-4.8); LYMPHOCYTES % 3.2 % (24.0-44.0); MEAN CORP HGB 29.5 pg (26-34); MONOCYTES # 0.7 10^3/uL (0.3-0.8); MONOCYTES % 5.2 % (5.0-12.0); NEUTROPHIL # 11.2 10^3/uL (1.8-7.7); NEUTROPHILS % 87.8 % (41.0-85.0); PLATELET COUNT 112 10^3/uL (150-400); RED CELL DISTRIBUTION WIDTH 13.3 % (11.5-14.5)
[2020-09-21 04:40] LABS: CALCIUM 7.1 mg/dL (8.4-10.5); CARBON DIOXIDE 33.2 mmol/L (20.0-32)
[2020-09-21] MEDS: HUMALOG SQ SCH ×4 (06:16→17:34)
[2020-09-21] MEDS: COLACE PO SCH ×2 (07:11→20:39)
[2020-09-21] MEDS: LOVENOX SQ SCH ×2 (07:12→20:40)
[2020-09-21] MEDS: LANTUS SQ SCH ×2 (07:12→21:30)
[2020-09-21] MEDS: CEPHULAC NG SCH (07:12)
[2020-09-21 07:44] LABS: ABG PCO2 51.4 mmHg (35.0-45.0); ABG PH 7.407 (7.350-7.450); BE(B) 5.9 mmol/L (-2.0-2.0); HCO3act 31.6 mmol/L (22.0-26.0); pO2 85.8 mmHg (80.0-100.0)
[2020-09-21] MEDS: PROTONIX IV IV SCH (09:00)
[2020-09-21] MEDS: SEROQUEL PO SCH ×2 (09:00→20:39)
[2020-09-21] MEDS: LASIX IV SCH (09:00)
[2020-09-21] MEDS: VITAMIN C PO SCH ×2 (09:00→20:39)
[2020-09-21] MEDS: ZINC SULFATE PO SCH ×2 (09:00→20:39)
--- NOTE | 2020-09-21 11:26 | TELE.CONS ---
Consultation Reason for Consult: Reason for Consultation: Covid PNA History of Present Illness History of Patient Comments The pt is intubated and sedated being proned Review of Systems Allergies: Coded Allergies: No Known Allergies (Unverified , 09/03/20) Scheduled Lisinopril (Lisinopril), 1 TAB PO BID, (Reported) Metformin Hcl (Metformin Hcl), 1,000 MG PO BID, (Reported) VITALS REVIEW VITALS Vital Sign - Last 24 Hours 09/21/20 09/21/20 09/21/20 09/21/20 07:00 07:15 07:15 07:30 Temp 98.2 98.2 98.2 Pulse 77 78 77 Resp 26 B/P (MAP) 145/66 (92) 115/53 (73) 119/54 (75) 112/52 (72) Pulse Ox 100 100 100 O2 Delivery Mechanical Ventilator FiO2 70 09/21/20 09/21/20 09/21/20 09/21/20 07:45 08:00 08:00 08:00 Temp 98.4 98.4 Pulse 75 78 77 Resp B/P (MAP) 113/53 (73) 146/71 (96) 117/54 (75) Pulse Ox 100 100 100 O2 Delivery Mechanical Ventilator FiO2 70 09/21/20 09/21/20 09/21/20 08:25 09:00 10:40 Pulse 83 98 Resp B/P (MAP) 164/69 Pulse Ox 98 96 FiO2 70 70 Intake and Output 09/21/20 05:59 Intake Total 2517.14 ml Output Total 4075 ml Balance -1557.86 ml LABS LAB RESULTS Laboratory Tests Test 09/03/20 18:04 09/03/20 18:37 09/03/20 21:02 09/04/20 04:47 Bedside Glucose 104 164 Nasal Adenovirus (PCR) NotDetected Nasal Coronavirus Type 229E (PCR) NotDetected Nasal Coronavirus Type HKU1 (PCR) NotDetected Nasal Coronavirus Type NL63 (PCR) NotDetected Nasal Coronavirus Type OC43 (PCR) NotDetected Nasal Enterovirus/Rhinovirus (PCR) NotDetected Nasal Influenza Type A (H1) (PCR) NotDetected Nasal Influenza Type A (H3) (PCR) NotDetected Nasal Swab Influenza Virus B (PCR) NotDetected Nasal Parainfluenza Type 1 (PCR) NotDetected Nasal Parainfluenza Type 2 (PCR) NotDetected Nasal Parainfluenza Type 3 (PCR) NotDetected Nasal Parainfluenza Type 4 (PCR) NotDetected Nasal Resp Syncytial Virus (PCR) NotDetected Nasal Bordetella pertussis DNA (PCR NotDetected Nasal Chlamydophila pneumoniae (PCR NotDetected Nasal Human Metapneumovirus (PCR) NotDetected Nasal Mycoplasma pneumoniae (PCR) NotDetected Nasal SARS-CoV-2 (PCR) NotDetected Influenza Type A (H1N1/) (PCR) NotDetected White Blood Count 8.1 10^3/uL Red Blood Count 4.89 10^6/uL Hemoglobin 14.2 g/dL Hematocrit 40.7 % Mean Corpuscular Volume 83.2 fL Mean Corpuscular Hemoglobin 29.0 pg Mean Corpuscular Hemoglobin Concent 34.9 g/dL Red Cell Distribution Width 12.0 % Platelet Count 185 10^3/uL Mean Platelet Volume 9.6 fL Neutrophils (%) (Auto) 83.5 % Lymphocytes (%) (Auto) 9.7 % Monocytes (%) (Auto) 6.0 % Neutrophils # (Auto) 6.8 10^3/uL Lymphocytes # (Auto) 0.79 10^3/uL1 Monocytes # (Auto) 0.5 10^3/uL Absolute Immature Granulocyte (auto 0.05 10^3 u/L Absolute Eosinophils (auto) 0.0 10^3/uL Immature Granulocytes % 0.60 % Eosinophils % 0.0 % Basophils % 0.2 % Basophils # 0.0 10^3/uL Sodium Level 132 mmol/L Potassium Level 3.6 mmol/L Chloride Level 97.0 mmol/L Carbon Dioxide Level 26.0 mmol/L Anion Gap 12.6 Blood Urea Nitrogen 21 mg/dL Creatinine 1.18 mg/dL Estimated GFR () 75.2 Est GFR (CKD-EPI)(Non-Afr [place]) 62.1 BUN/Creatinine Ratio 17.0 Glucose Level 118 mg/dL Hemoglobin A1c 8.0 % Calcium Level 8.3 mg/dL Total Bilirubin 0.7 mg/dL Aspartate Amino Transf (AST/SGOT) 55 U/L Alanine Aminotransferase (ALT/SGPT) 37 U/L Alkaline Phosphatase 40 U/L Total Protein 6.5 g/dL Albumin 2.3 g/dL Globulin 4.2 Albumin/Globulin Ratio 0.547 Triglycerides Level 65 mg/dL Cholesterol Level 76 mg/dL LDL Cholesterol, Calculated 26.0 VLDL Cholesterol, Calculated 13.0 HDL Cholesterol 37 mg/dL Cholesterol Ratio (LDL/HDL) 0.7 Cholesterol/HDL Ratio [id number] Test 09/04/20 05:59 09/04/20 07:15 09/04/20 11:37 09/04/20 12:22 Bedside Glucose 120 123 159 D-Dimer 1.85 mg/L Troponin I < 0.02 ng/mL Pro-B-Type Natriuretic Peptide 97 pg/mL Test 09/04/20 16:36 09/04/20 20:39 09/04/20 20:54 09/05/20 00:10 Bedside Glucose 131 158 Procalcitonin 0.74 ng/mL Yeast/Fungal Identification Test 09/05/20 04:05 09/05/20 05:40 09/05/20 08:09 09/05/20 09:30 White Blood Count 8.7 10^3/uL Red Blood Count 4.49 10^6/uL Hemoglobin 13.2 g/dL Hematocrit 38.0 % Mean Corpuscular Volume 84.6 fL Mean Corpuscular Hemoglobin 29.4 pg Mean Corpuscular Hemoglobin Concent 34.7 g/dL Red Cell Distribution Width 12.0 % Platelet Count 226 10^3/uL Mean Platelet Volume 9.6 fL Neutrophils (%) (Auto) 83.5 % Lymphocytes (%) (Auto) 10.2 % Monocytes (%) (Auto) 5.5 % Neutrophils # (Auto) 7.3 10^3/uL Lymphocytes # (Auto) 0.89 10^3/uL1 Monocytes # (Auto) 0.5 10^3/uL Absolute Immature Granulocyte (auto 0.05 10^3 u/L Absolute Eosinophils (auto) 0.0 10^3/uL Immature Granulocytes % 0.60 % Eosinophils % 0.1 % Basophils % 0.1 % Basophils # 0.0 10^3/uL Sodium Level 136 mmol/L Potassium Level 3.5 mmol/L Chloride Level 103.0 mmol/L Carbon Dioxide Level 24.3 mmol/L Anion Gap 12.2 Blood Urea Nitrogen 20 mg/dL Creatinine 1.01 mg/dL Estimated GFR () 90.0 Est GFR (CKD-EPI)(Non-Afr [place]) 74.4 BUN/Creatinine Ratio 19.0 Glucose Level 104 mg/dL Calcium Level 8.1 mg/dL Phosphorus Level 2.5 mg/dL Magnesium Level 2.2 mg/dL Total Bilirubin 0.5 mg/dL Aspartate Amino Transf (AST/SGOT) 46 U/L Alanine Aminotransferase (ALT/SGPT) 29 U/L Alkaline Phosphatase 38 U/L Total Protein 6.1 g/dL Albumin 2.1 g/dL Globulin 4.0 Albumin/Globulin Ratio 0.525 Bedside Glucose 99 95 Nasal Adenovirus (PCR) NotDetected Nasal Coronavirus Type 229E (PCR) NotDetected Nasal Coronavirus Type HKU1 (PCR) NotDetected Nasal Coronavirus Type NL63 (PCR) NotDetected Nasal Coronavirus Type OC43 (PCR) NotDetected Nasal Enterovirus/Rhinovirus (PCR) NotDetected Nasal Influenza Type A (H1) (PCR) NotDetected Nasal Influenza Type A (H3) (PCR) NotDetected Nasal Swab Influenza Virus B (PCR) NotDetected Nasal Parainfluenza Type 1 (PCR) NotDetected Nasal Parainfluenza Type 2 (PCR) NotDetected Nasal Parainfluenza Type 3 (PCR) NotDetected Nasal Parainfluenza Type 4 (PCR) NotDetected Nasal Resp Syncytial Virus (PCR) NotDetected Nasal Bordetella pertussis DNA (PCR NotDetected Nasal Chlamydophila pneumoniae (PCR NotDetected Nasal Human Metapneumovirus (PCR) NotDetected Nasal Mycoplasma pneumoniae (PCR) NotDetected Nasal SARS-CoV-2 (PCR) DETECTED Influenza Type A (H1N1/09) (PCR) NotDetected Test 09/05/20 10:24 09/05/20 12:44 09/05/20 17:15 09/05/20 19:49 Erythrocyte Sedimentation Rate 78 mm/hr C-Reactive Protein 13.99 mg/dL Anti-Nuclear FA Antibody Screen Negative Anti-Nuclear Ab Homogeneous Pattern Anti-Nuclear Ab Nucleolar Pattern Anti-Nuclear Ab Speckled Pattern Anti-Nuclear Ab Centromere Pattern Anti-Nuclear Antibody Comment Cytoplasmic ANCA (c-ANCA) Antibody <1:20 titer Atypical p-ANCA <1:20 titer Perinuclear ANCA (p-ANCA) Antibody <1:20 titer HIV-1 Antibody NON-REACTIVE HIV-2 Antibody NON-REACTIVE Bedside Glucose 88 154 141 Test 09/06/20 04:09 09/06/20 05:29 09/06/20 11:39 09/06/20 16:09 White Blood Count 7.7 10^3/uL Red Blood Count 4.20 10^6/uL Hemoglobin 12.5 g/dL Hematocrit 35.4 % Mean Corpuscular Volume 84.3 fL Mean Corpuscular Hemoglobin 29.8 pg Mean Corpuscular Hemoglobin Concent 35.3 g/dL Red Cell Distribution Width 11.9 % Platelet Count 208 10^3/uL Mean Platelet Volume 10.4 fL Neutrophils (%) (Auto) 82.7 % Lymphocytes (%) (Auto) 8.5 % Monocytes (%) (Auto) 7.8 % Neutrophils # (Auto) 6.3 10^3/uL Lymphocytes # (Auto) 0.65 10^3/uL1 Monocytes # (Auto) 0.6 10^3/uL Absolute Immature Granulocyte (auto 0.04 10^3 u/L Absolute Eosinophils (auto) 0.0 10^3/uL Immature Granulocytes % 0.50 % Eosinophils % 0.1 % Basophils % 0.4 % Basophils # 0.0 10^3/uL Sodium Level 137 mmol/L Potassium Level 3.5 mmol/L Chloride Level 104.0 mmol/L Carbon Dioxide Level 23.9 mmol/L Anion Gap 12.6 Blood Urea Nitrogen 17 mg/dL Creatinine 0.94 mg/dL Estimated GFR () 97.8 Est GFR (CKD-EPI)(Non-Afr [place]) 80.8 BUN/Creatinine Ratio 18.0 Glucose Level 181 mg/dL Calcium Level 8.0 mg/dL Phosphorus Level 3.2 mg/dL Magnesium Level 2.2 mg/dL Total Bilirubin 0.5 mg/dL Aspartate Amino Transf (AST/SGOT) 45 U/L Alanine Aminotransferase (ALT/SGPT) 28 U/L Alkaline Phosphatase 38 U/L Total Protein 5.9 g/dL Albumin 1.8 g/dL Globulin 4.1 Albumin/Globulin Ratio 0.439 Bedside Glucose 166 133 192 Test 09/06/20 19:56 09/07/20 05:22 09/07/20 07:46 09/07/20 10:47 Bedside Glucose 190 181 222 238 Test 09/07/20 17:34 09/07/20 17:36 09/07/20 18:20 09/07/20 18:59 Bedside Glucose 220 236 Blood Gas Sample Site RR Blood Gas pH 7.403 Blood Gas PCO2 30.6 mmHg Blood Gas PO2 62.4 mmHg Blood Gas HCO3 18.7 mmol/L Blood Gas Base Excess -4.8 mmol/L Abdi Test POSITIVE Arterial Blood Oxygen Saturation 92.1 % Deoxyhemoglobin 7.8 % Carboxyhemoglobin 0.7 % Methemoglobin 0.2 % Total Hemoglobin 14.6 % Total Oxygen Concentration 18.7 % Blood Gas Temperature 37.0 Oxygen Delivery Method (LAB) NON-REBREATHER MASK FiO2 100 % Total Carbon Dioxide 19.6 mmol/L Hemoglobin 14.0 g/dL Hematocrit 40.0 % Platelet Count 386 10^3/uL Prothrombin Time 11.2 SEC Prothrombin Time INR (Non-Therap) 1.1 Fibrinogen > 450 mg/dL Test 09/07/20 20:18 09/08/20 05:14 09/08/20 05:20 09/08/20 06:57 Bedside Glucose 226 204 White Blood Count 11.7 10^3/uL Red Blood Count 4.60 10^6/uL Hemoglobin 13.4 g/dL Hematocrit 38.5 % Mean Corpuscular Volume 83.7 fL Mean Corpuscular Hemoglobin 29.1 pg Mean Corpuscular Hemoglobin Concent 34.8 g/dL Red Cell Distribution Width 12.0 % Platelet Count 360 10^3/uL Mean Platelet Volume 9.7 fL Neutrophils (%) (Auto) 89.4 % Lymphocytes (%) (Auto) 4.8 % Monocytes (%) (Auto) 4.9 % Neutrophils # (Auto) 10.5 10^3/uL Lymphocytes # (Auto) 0.56 10^3/uL1 Monocytes # (Auto) 0.6 10^3/uL Absolute Immature Granulocyte (auto 0.08 10^3 u/L Absolute Eosinophils (auto) 0.0 10^3/uL Immature Granulocytes % 0.70 % Eosinophils % 0.0 % Basophils % 0.2 % Basophils # 0.0 10^3/uL D-Dimer 4.40 mg/L Sodium Level 139 mmol/L Potassium Level 3.4 mmol/L Chloride Level 108.0 mmol/L Carbon Dioxide Level 21.4 mmol/L Anion Gap 13.0 Blood Urea Nitrogen 22 mg/dL Creatinine 0.87 mg/dL Estimated GFR () 106.9 Est GFR (CKD-EPI)(Non-Afr [place]) 88.3 BUN/Creatinine Ratio 25.0 Glucose Level 214 mg/dL Calcium Level 8.1 mg/dL Phosphorus Level 2.2 mg/dL Magnesium Level 2.2 mg/dL Ferritin 1364 ng/mL Total Bilirubin 0.3 mg/dL Aspartate Amino Transf (AST/SGOT) 44 U/L Alanine Aminotransferase (ALT/SGPT) 23 U/L Alkaline Phosphatase 45 U/L Lactate Dehydrogenase 300 U/L Total Creatine Kinase 48 U/L C-Reactive Protein 3.22 mg/dL Total Protein 5.9 g/dL Albumin 2.0 g/dL Globulin 3.9 Albumin/Globulin Ratio 0.512 Procalcitonin 0.29 ng/mL Segmented Neutrophils 95 % Lymphocytes 4 % Monocytes 1 % Platelet Estimate ADEQUATE Platelet Morphology NORMAL Test 09/08/20 07:39 09/08/20 11:31 09/08/20 16:25 09/08/20 20:15 Bedside Glucose 223 208 183 217 Test 09/09/20 05:05 09/09/20 06:31 09/09/20 07:23 09/09/20 07:39 Bedside Glucose 169 231 White Blood Count 11.5 10^3/uL Red Blood Count 4.52 10^6/uL Hemoglobin 13.1 g/dL Hematocrit 37.4 % Mean Corpuscular Volume 82.7 fL Mean Corpuscular Hemoglobin 29.0 pg Mean Corpuscular Hemoglobin Concent 35.0 g/dL Red Cell Distribution Width 12.0 % Platelet Count 367 10^3/uL Mean Platelet Volume 9.2 fL Neutrophils (%) (Auto) 87.0 % Lymphocytes (%) (Auto) 5.3 % Monocytes (%) (Auto) 7.0 % Neutrophils # (Auto) 10.0 10^3/uL Lymphocytes # (Auto) 0.61 10^3/uL1 Monocytes # (Auto) 0.8 10^3/uL Absolute Immature Granulocyte (auto 0.07 10^3 u/L Absolute Eosinophils (auto) 0.0 10^3/uL Immature Granulocytes % 0.60 % Eosinophils % 0.0 % Basophils % 0.1 % Basophils # 0.0 10^3/uL Sodium Level 141 mmol/L Potassium Level 3.9 mmol/L Chloride Level 109.0 mmol/L Carbon Dioxide Level 22.4 mmol/L Anion Gap 13.5 Blood Urea Nitrogen 22 mg/dL Creatinine 0.81 mg/dL Estimated GFR () 116.1 Est GFR (CKD-EPI)(Non-Afr [place]) 95.9 BUN/Creatinine Ratio 27.0 Glucose Level 187 mg/dL Calcium Level 7.9 mg/dL Phosphorus Level 2.7 mg/dL Magnesium Level 2.0 mg/dL Total Bilirubin 0.4 mg/dL Aspartate Amino Transf (AST/SGOT) 32 U/L Alanine Aminotransferase (ALT/SGPT) 29 U/L Alkaline Phosphatase 44 U/L Total Protein 5.5 g/dL Albumin 2.0 g/dL Globulin 3.5 Albumin/Globulin Ratio 0.571 Segmented Neutrophils 91 % Lymphocytes 5 % Monocytes 4 % Platelet Estimate ADEQUATE Platelet Morphology NORMAL Test 09/09/20 11:15 09/09/20 16:50 09/09/20 19:54 09/10/20 04:26 Bedside Glucose 236 192 219 White Blood Count 11.8 10^3/uL Red Blood Count 4.77 10^6/uL Hemoglobin 13.8 g/dL Hematocrit 39.8 % Mean Corpuscular Volume 83.4 fL Mean Corpuscular Hemoglobin 28.9 pg Mean Corpuscular Hemoglobin Concent 34.7 g/dL Red Cell Distribution Width 12.3 % Platelet Count 361 10^3/uL Mean Platelet Volume 9.2 fL Neutrophils (%) (Auto) 84.0 % Lymphocytes (%) (Auto) 9.0 % Monocytes (%) (Auto) 4.8 % Neutrophils # (Auto) 9.9 10^3/uL Lymphocytes # (Auto) 1.06 10^3/uL1 Monocytes # (Auto) 0.6 10^3/uL Absolute Immature Granulocyte (auto 0.23 10^3 u/L Absolute Eosinophils (auto) 0.0 10^3/uL Immature Granulocytes % 2.00 % Eosinophils % 0.1 % Basophils % 0.1 % Basophils # 0.0 10^3/uL D-Dimer 8.09 mg/L Sodium Level 140 mmol/L Potassium Level 3.7 mmol/L Chloride Level 106.0 mmol/L Carbon Dioxide Level 27.2 mmol/L Anion Gap 10.5 Blood Urea Nitrogen 19 mg/dL Creatinine 0.96 mg/dL Estimated GFR () 95.4 Est GFR (CKD-EPI)(Non-Afr [place]) 78.9 BUN/Creatinine Ratio 19.0 Glucose Level 100 mg/dL Calcium Level 7.9 mg/dL Phosphorus Level 2.4 mg/dL Magnesium Level 1.8 mg/dL Ferritin 1073 ng/mL Total Bilirubin 0.7 mg/dL Aspartate Amino Transf (AST/SGOT) 27 U/L Alanine Aminotransferase (ALT/SGPT) 29 U/L Alkaline Phosphatase 58 U/L Lactate Dehydrogenase 295 U/L Total Creatine Kinase 41 U/L C-Reactive Protein 3.25 mg/dL Total Protein 5.7 g/dL Albumin 2.0 g/dL Globulin 3.7 Albumin/Globulin Ratio 0.540 Procalcitonin 0.10 ng/mL Test 09/10/20 04:54 09/10/20 07:10 09/10/20 11:33 09/10/20 16:46 Bedside Glucose 93 134 173 178 Test 09/10/20 19:51 09/11/20 01:56 09/11/20 02:03 09/11/20 05:13 Bedside Glucose 169 159 145 Blood Gas Sample Site LB Blood Gas pH 7.398 Blood Gas PCO2 31.4 mmHg Blood Gas PO2 54.5 mmHg Blood Gas HCO3 18.9 mmol/L Blood Gas Base Excess -4.8 mmol/L Abdi Test POSITIVE Arterial Blood Oxygen Saturation 87.1 % Deoxyhemoglobin 12.9 % Carboxyhemoglobin 0.3 % Methemoglobin 0.0 % Total Hemoglobin 13.4 % Total Oxygen Concentration 16.3 % Blood Gas Temperature 37 Oxygen Delivery Method (LAB) NON-REBREATHER MASK FiO2 100 % Total Carbon Dioxide 19.9 mmol/L Test 09/11/20 05:14 09/11/20 05:41 09/11/20 07:35 09/11/20 07:50 White Blood Count 11.5 10^3/uL Red Blood Count 4.66 10^6/uL Hemoglobin 13.4 g/dL Hematocrit 39.1 % Mean Corpuscular Volume 83.9 fL Mean Corpuscular Hemoglobin 28.8 pg Mean Corpuscular Hemoglobin Concent 34.3 g/dL Red Cell Distribution Width 12.2 % Platelet Count 296 10^3/uL Mean Platelet Volume 9.2 fL Neutrophils (%) (Auto) 87.0 % Lymphocytes (%) (Auto) 5.9 % Monocytes (%) (Auto) 5.0 % Neutrophils # (Auto) 10.0 10^3/uL Lymphocytes # (Auto) 0.68 10^3/uL1 Monocytes # (Auto) 0.6 10^3/uL Absolute Immature Granulocyte (auto 0.23 10^3 u/L Absolute Eosinophils (auto) 0.0 10^3/uL Immature Granulocytes % 2.00 % Eosinophils % 0.0 % Basophils % 0.1 % Basophils # 0.0 10^3/uL Sodium Level 139 mmol/L Potassium Level 3.9 mmol/L Chloride Level 106.0 mmol/L Carbon Dioxide Level 23.2 mmol/L Anion Gap 13.7 Blood Urea Nitrogen 22 mg/dL Creatinine 0.88 mg/dL Estimated GFR () 105.5 Est GFR (CKD-EPI)(Non-Afr [place]) 87.2 BUN/Creatinine Ratio 25.0 Glucose Level 151 mg/dL Calcium Level 8.3 mg/dL Phosphorus Level 3.1 mg/dL Magnesium Level 2.3 mg/dL Total Bilirubin 0.7 mg/dL Aspartate Amino Transf (AST/SGOT) 27 U/L Alanine Aminotransferase (ALT/SGPT) 23 U/L Alkaline Phosphatase 71 U/L Total Protein 5.7 g/dL Albumin 2.0 g/dL Globulin 3.7 Albumin/Globulin Ratio 0.540 Blood Gas Sample Site RT RADIAL ARTERY RR Blood Gas pH 7.405 7.398 Blood Gas PCO2 35.2 mmHg 36.1 mmHg Blood Gas PO2 53.5 mmHg 52.5 mmHg Blood Gas HCO3 21.6 mmol/L 21.8 mmol/L Blood Gas Base Excess -2.5 mmol/L -2.5 mmol/L Abdi Test POSITIVE POSITIVE Arterial Blood Oxygen Saturation 87.9 % 86.0 % Deoxyhemoglobin 12.1 % 13.9 % Carboxyhemoglobin 0 % 0.6 % Methemoglobin 0.1 % 0.3 % Total Hemoglobin 14.0 % 13.9 % Total Oxygen Concentration 17.3 % 16.6 % Blood Gas Temperature 37 37 Oxygen Delivery Method (LAB) NON-REBREATHER MASK NON-REBREATHER MASK FiO2 100 % 100 % Total Carbon Dioxide 22.6 mmol/L 22.9 mmol/L Bedside Glucose 133 Test 09/11/20 11:42 09/11/20 16:15 09/11/20 20:50 09/12/20 04:11 Bedside Glucose 185 175 201 White Blood Count 16.3 10^3/uL Red Blood Count 4.45 10^6/uL Hemoglobin 13.2 g/dL Hematocrit 37.1 % Mean Corpuscular Volume 83.4 fL Mean Corpuscular Hemoglobin 29.7 pg Mean Corpuscular Hemoglobin Concent 35.6 g/dL Red Cell Distribution Width 12.3 % Platelet Count 316 10^3/uL Mean Platelet Volume 9.2 fL Neutrophils (%) (Auto) 89.5 % Lymphocytes (%) (Auto) 3.9 % Monocytes (%) (Auto) 5.0 % Neutrophils # (Auto) 14.6 10^3/uL Lymphocytes # (Auto) 0.64 10^3/uL1 Monocytes # (Auto) 0.8 10^3/uL Absolute Immature Granulocyte (auto 0.24 10^3 u/L Absolute Eosinophils (auto) 0.0 10^3/uL Immature Granulocytes % 1.50 % Eosinophils % 0.0 % Basophils % 0.1 % Basophils # 0.0 10^3/uL Sodium Level 139 mmol/L Potassium Level 4.1 mmol/L Chloride Level 105.0 mmol/L Carbon Dioxide Level 26.4 mmol/L Anion Gap 11.7 Blood Urea Nitrogen 24 mg/dL Creatinine 0.82 mg/dL Estimated GFR () 114.5 Est GFR (CKD-EPI)(Non-Afr [place]) 94.6 BUN/Creatinine Ratio 29.0 Glucose Level 144 mg/dL Calcium Level 8.3 mg/dL Total Bilirubin 0.6 mg/dL Aspartate Amino Transf (AST/SGOT) 24 U/L Alanine Aminotransferase (ALT/SGPT) 19 U/L Alkaline Phosphatase 69 U/L Total Protein 5.6 g/dL Albumin 2.0 g/dL Globulin 3.6 Albumin/Globulin Ratio 0.555 Test 09/12/20 05:21 09/12/20 07:14 09/12/20 11:45 09/12/20 15:44 Bedside Glucose 132 173 262 Blood Gas Sample Site RR Blood Gas pH 7.429 Blood Gas PCO2 33.6 mmHg Blood Gas PO2 47.2 mmHg Blood Gas HCO3 21.8 mmol/L Blood Gas Base Excess -1.7 mmol/L Abdi Test POSITIVE Arterial Blood Oxygen Saturation 82.7 % Deoxyhemoglobin 17.1 % Carboxyhemoglobin 0.9 % Methemoglobin 0.3 % Total Hemoglobin 15.0 % Total Oxygen Concentration 17.2 % Blood Gas Temperature 37 Oxygen Delivery Method (LAB) NON-REBREATHER MASK FiO2 100 % Total Carbon Dioxide 22.8 mmol/L Test 09/12/20 21:13 09/13/20 04:13 09/13/20 07:45 09/13/20 12:57 Bedside Glucose 202 195 White Blood Count 13.7 10^3/uL Red Blood Count 4.63 10^6/uL Hemoglobin 13.4 g/dL Hematocrit 38.7 % Mean Corpuscular Volume 83.6 fL Mean Corpuscular Hemoglobin 28.9 pg Mean Corpuscular Hemoglobin Concent 34.6 g/dL Red Cell Distribution Width 12.4 % Platelet Count 132 10^3/uL Mean Platelet Volume 10.4 fL Neutrophils (%) (Auto) 89.9 % Lymphocytes (%) (Auto) 4.0 % Monocytes (%) (Auto) 4.7 % Neutrophils # (Auto) 12.3 10^3/uL Lymphocytes # (Auto) 0.55 10^3/uL1 Monocytes # (Auto) 0.6 10^3/uL Absolute Immature Granulocyte (auto 0.18 10^3 u/L Absolute Eosinophils (auto) 0.0 10^3/uL Immature Granulocytes % 1.30 % Eosinophils % 0.0 % Basophils % 0.1 % Basophils # 0.0 10^3/uL D-Dimer 6.10 mg/L Sodium Level 134 mmol/L Potassium Level 3.9 mmol/L Chloride Level 101.0 mmol/L Carbon Dioxide Level 24.6 mmol/L Anion Gap 12.3 Blood Urea Nitrogen 21 mg/dL Creatinine 0.83 mg/dL Estimated GFR () 112.9 Est GFR (CKD-EPI)(Non-Afr [place]) 93.3 BUN/Creatinine Ratio 25.0 Glucose Level 163 mg/dL Calcium Level 8.1 mg/dL Total Bilirubin 0.6 mg/dL Aspartate Amino Transf (AST/SGOT) 25 U/L Alanine Aminotransferase (ALT/SGPT) 18 U/L Alkaline Phosphatase 65 U/L Ammonia 32 umol/L Pro-B-Type Natriuretic Peptide 1380 pg/mL Total Protein 5.6 g/dL Albumin 1.9 g/dL Globulin 3.7 Albumin/Globulin Ratio 0.513 Blood Gas Sample Site RR Blood Gas pH 7.410 Blood Gas PCO2 47.1 mmHg Blood Gas PO2 55.4 mmHg Blood Gas HCO3 25.9 mmol/L Blood Gas Base Excess 1.1 mmol/L Abdi Test POSITIVE Arterial Blood Oxygen Saturation 87.4 % Deoxyhemoglobin 12.5 % Carboxyhemoglobin 0.8 % Methemoglobin 0.2 % Total Hemoglobin 13.9 % Total Oxygen Concentration 16.9 % Oxygen Delivery Method (LAB) BIPAP Blood Gas Vent Mode AVAPS Blood Gas Vent Rate 14 FiO2 100 % Blood Gas Tidal Volume 400 ML Blood Gas PEEP 8 CMH2O Total Carbon Dioxide 27.2 mmol/L Test 09/13/20 13:06 09/13/20 14:10 09/13/20 16:18 09/13/20 17:19 Blood Gas Sample Site RR Blood Gas pH 7.388 Blood Gas PCO2 52.0 mmHg Blood Gas PO2 52.0 mmHg Blood Gas HCO3 22.7 mmol/L Blood Gas Base Excess -1.9 mmol/L Abdi Test POSITIVE Arterial Blood Oxygen Saturation 83.6 % Carboxyhemoglobin 0 % Methemoglobin 0.2 % Total Hemoglobin 14.7 % Blood Gas Temperature 37 Oxygen Delivery Method (LAB) VENT Blood Gas Vent Mode ACVC Blood Gas Vent Rate 25 FiO2 100 % Blood Gas Tidal Volume 400 ML Blood Gas PEEP 6 CMH2O Total Carbon Dioxide 23.9 mmol/L Urine Collection Type UNKNOWN Urine Color YELLOW Urine Appearance CLEAR Urine Bilirubin NEGATIVE MG/DL Urine Ketones NEGATIVE Urine Specific [place] 1.010 Urine pH 6.5 Urine Protein NEGATIVE Urine Urobilinogen NORMAL Urine Nitrate NEGATIVE Urine Leukocyte Esterase NEGATIVE Urine Blood NEGATIVE Urine Glucose 100 Procalcitonin 0.26 ng/mL Bedside Glucose 243 Test 09/13/20 23:38 09/14/20 03:53 09/14/20 05:21 09/14/20 08:30 Bedside Glucose 137 184 White Blood Count 15.2 10^3/uL Red Blood Count 4.89 10^6/uL Hemoglobin 14.3 g/dL Hematocrit 41.5 % Mean Corpuscular Volume 84.9 fL Mean Corpuscular Hemoglobin 29.2 pg Mean Corpuscular Hemoglobin Concent 34.5 g/dL Red Cell Distribution Width 12.9 % Platelet Count 260 10^3/uL Mean Platelet Volume 10.3 fL Neutrophils (%) (Auto) 92.6 % Lymphocytes (%) (Auto) 3.0 % Monocytes (%) (Auto) 2.5 % Neutrophils # (Auto) 14.1 10^3/uL Lymphocytes # (Auto) 0.45 10^3/uL1 Monocytes # (Auto) 0.4 10^3/uL Absolute Immature Granulocyte (auto 0.27 10^3 u/L Absolute Eosinophils (auto) 0.0 10^3/uL Immature Granulocytes % 1.80 % Eosinophils % 0.0 % Basophils % 0.1 % Basophils # 0.0 10^3/uL Sodium Level 141 mmol/L Potassium Level 4.6 mmol/L Chloride Level 105.0 mmol/L Carbon Dioxide Level 24.2 mmol/L Anion Gap 16.4 Blood Urea Nitrogen 34 mg/dL Creatinine 1.14 mg/dL Estimated GFR () 78.3 Est GFR (CKD-EPI)(Non-Afr [place]) 64.7 BUN/Creatinine Ratio 29.0 Glucose Level 179 mg/dL Calcium Level 8.2 mg/dL Total Bilirubin 0.6 mg/dL Aspartate Amino Transf (AST/SGOT) 19 U/L Alanine Aminotransferase (ALT/SGPT) 16 U/L Alkaline Phosphatase 61 U/L Total Protein 5.8 g/dL Albumin 2.0 g/dL Globulin 3.8 Albumin/Globulin Ratio 0.526 Blood Gas Sample Site RT RADIAL ARTERY Blood Gas pH 7.377 Blood Gas PCO2 39.9 mmHg Blood Gas PO2 55.2 mmHg Blood Gas HCO3 22.9 mmol/L Blood Gas Base Excess -2.0 mmol/L Abdi Test POSITIVE Arterial Blood Oxygen Saturation 85.5 % Deoxyhemoglobin 14.4 % Carboxyhemoglobin 0.7 % Methemoglobin 0.2 % Total Hemoglobin 15.1 % Total Oxygen Concentration 18.0 % Blood Gas Temperature 37 Oxygen Delivery Method (LAB) VENT Blood Gas Vent Mode ACVC Blood Gas Vent Rate 25 FiO2 100 % Blood Gas Tidal Volume 400 ML Blood Gas PEEP 10 CMH2O Total Carbon Dioxide 24.1 mmol/L Test 09/14/20 12:01 09/14/20 15:20 09/14/20 17:42 09/15/20 00:20 Bedside Glucose 201 232 283 Lactic Acid Level 1.3 mmol/L Test 09/15/20 04:09 09/15/20 05:49 09/15/20 05:50 09/15/20 08:02 White Blood Count 16.8 10^3/uL Red Blood Count 4.60 10^6/uL Hemoglobin 13.4 g/dL Hematocrit 39.6 % Mean Corpuscular Volume 86.1 fL Mean Corpuscular Hemoglobin 29.1 pg Mean Corpuscular Hemoglobin Concent 33.8 g/dL Red Cell Distribution Width 13.1 % Platelet Count 355 10^3/uL Mean Platelet Volume 9.9 fL Neutrophils (%) (Auto) 92.1 % Lymphocytes (%) (Auto) 2.5 % Monocytes (%) (Auto) 3.7 % Neutrophils # (Auto) 15.5 10^3/uL Lymphocytes # (Auto) 0.42 10^3/uL1 Monocytes # (Auto) 0.6 10^3/uL Absolute Immature Granulocyte (auto 0.28 10^3 u/L Absolute Eosinophils (auto) 0.0 10^3/uL Immature Granulocytes % 1.70 % Eosinophils % 0.0 % Basophils % 0.0 % Basophils # 0.0 10^3/uL Sodium Level 139 mmol/L Potassium Level 4.1 mmol/L Chloride Level 105.0 mmol/L Carbon Dioxide Level 23.9 mmol/L Anion Gap 14.2 Blood Urea Nitrogen 52 mg/dL Creatinine 1.34 mg/dL Estimated GFR () 64.9 Est GFR (CKD-EPI)(Non-Afr [place]) 53.7 BUN/Creatinine Ratio 38.0 Glucose Level 305 mg/dL Calcium Level 7.1 mg/dL Total Bilirubin 0.4 mg/dL Aspartate Amino Transf (AST/SGOT) 17 U/L Alanine Aminotransferase (ALT/SGPT) 17 U/L Alkaline Phosphatase 65 U/L C-Reactive Protein 3.29 mg/dL Total Protein 5.6 g/dL Albumin 2.0 g/dL Globulin 3.6 Albumin/Globulin Ratio 0.555 Bedside Glucose 276 Segmented Neutrophils 98 % Lymphocytes 1 % Monocytes 1 % Platelet Estimate ADEQUATE Platelet Morphology NORMAL Blood Gas Sample Site ART LINE Blood Gas pH 7.335 Blood Gas PCO2 42.5 mmHg Blood Gas PO2 72.2 mmHg Blood Gas HCO3 22.2 mmol/L Blood Gas Base Excess -3.6 mmol/L Abdi Test POSITIVE Arterial Blood Oxygen Saturation 93.1 % Deoxyhemoglobin 6.8 % Carboxyhemoglobin 0.6 % Methemoglobin 0.3 % Total Hemoglobin 13.6 % Total Oxygen Concentration 17.7 % Blood Gas Temperature 37 Oxygen Delivery Method (LAB) VENT Blood Gas Vent Mode ACVC Blood Gas Vent Rate 25 FiO2 100 % Blood Gas Tidal Volume 400 ML Blood Gas PEEP 12 CMH2O Total Carbon Dioxide 23.5 mmol/L Test 09/15/20 11:39 09/15/20 15:05 09/15/20 17:08 09/15/20 20:08 Bedside Glucose 294 288 260 Procalcitonin 0.15 ng/mL Test 09/15/20 23:59 09/16/20 04:23 09/16/20 05:22 09/16/20 05:42 Bedside Glucose 284 278 White Blood Count 15.2 10^3/uL Red Blood Count 4.03 10^6/uL Hemoglobin 11.7 g/dL Hematocrit 35.3 % Mean Corpuscular Volume 87.6 fL Mean Corpuscular Hemoglobin 29.0 pg Mean Corpuscular Hemoglobin Concent 33.1 g/dL Red Cell Distribution Width 13.1 % Platelet Count 234 10^3/uL Mean Platelet Volume 10.2 fL Neutrophils (%) (Auto) 94.0 % Lymphocytes (%) (Auto) 1.8 % Monocytes (%) (Auto) 3.0 % Neutrophils # (Auto) 14.3 10^3/uL Lymphocytes # (Auto) 0.28 10^3/uL1 Monocytes # (Auto) 0.5 10^3/uL Absolute Immature Granulocyte (auto 0.16 10^3 u/L Absolute Eosinophils (auto) 0.0 10^3/uL Immature Granulocytes % 1.10 % Eosinophils % 0.0 % Basophils % 0.1 % Basophils # 0.0 10^3/uL D-Dimer 1.67 mg/L Sodium Level 140 mmol/L Potassium Level 4.9 mmol/L Chloride Level 107.0 mmol/L Carbon Dioxide Level 24.8 mmol/L Anion Gap 13.1 Blood Urea Nitrogen 50 mg/dL Creatinine 1.14 mg/dL Estimated GFR () 78.3 Est GFR (CKD-EPI)(Non-Afr [place]) 64.7 BUN/Creatinine Ratio 43.0 Glucose Level 313 mg/dL Calcium Level 7.0 mg/dL Total Bilirubin 0.3 mg/dL Aspartate Amino Transf (AST/SGOT) 16 U/L Alanine Aminotransferase (ALT/SGPT) 16 U/L Alkaline Phosphatase 68 U/L Total Protein 4.9 g/dL Albumin 1.8 g/dL Globulin 3.1 Albumin/Globulin Ratio 0.580 Blood Gas Sample Site ART LINE Blood Gas pH 7.310 Blood Gas PCO2 46.1 mmHg Blood Gas PO2 61.6 mmHg Blood Gas HCO3 22.7 mmol/L Blood Gas Base Excess -3.7 mmol/L Abdi Test N/A Arterial Blood Oxygen Saturation 89.2 % Deoxyhemoglobin 10.7 % Carboxyhemoglobin 0.3 % Methemoglobin 0.3 % Total Hemoglobin 13.4 % Total Oxygen Concentration 16.7 % Blood Gas Temperature 37 Oxygen Delivery Method (LAB) VENT Blood Gas Vent Mode ACVC Blood Gas Vent Rate 25 FiO2 75 % Blood Gas Tidal Volume 400 ML Blood Gas PEEP 10 CMH2O Total Carbon Dioxide 24.1 mmol/L Test 09/16/20 06:16 09/16/20 12:17 09/16/20 13:15 09/16/20 17:13 Segmented Neutrophils 97 % Lymphocytes 1 % Monocytes 2 % Platelet Estimate ADEQUATE Platelet Morphology NORMAL Bedside Glucose 222 170 Procalcitonin 0.05 ng/mL Test 09/16/20 21:21 09/17/20 00:03 09/17/20 03:50 09/17/20 04:10 Bedside Glucose 186 221 235 White Blood Count 17.5 10^3/uL Red Blood Count 4.13 10^6/uL Hemoglobin 11.8 g/dL Hematocrit 36.6 % Mean Corpuscular Volume 88.6 fL Mean Corpuscular Hemoglobin 28.6 pg Mean Corpuscular Hemoglobin Concent 32.2 g/dL Red Cell Distribution Width 13.0 % Platelet Count 217 10^3/uL Mean Platelet Volume 9.7 fL Neutrophils (%) (Auto) 93.7 % Lymphocytes (%) (Auto) 1.3 % Monocytes (%) (Auto) 4.1 % Neutrophils # (Auto) 16.4 10^3/uL Lymphocytes # (Auto) 0.22 10^3/uL1 Monocytes # (Auto) 0.7 10^3/uL Absolute Immature Granulocyte (auto 0.16 10^3 u/L Absolute Eosinophils (auto) 0.0 10^3/uL Immature Granulocytes % 0.90 % Eosinophils % 0.0 % Basophils % 0.0 % Basophils # 0.0 10^3/uL Sodium Level 141 mmol/L Potassium Level 5.2 mmol/L Chloride Level 109.0 mmol/L Carbon Dioxide Level 26.2 mmol/L Anion Gap 11.0 Blood Urea Nitrogen 56 mg/dL Creatinine 1.02 mg/dL Estimated GFR () 89.0 Est GFR (CKD-EPI)(Non-Afr [place]) 73.5 BUN/Creatinine Ratio 54.0 Glucose Level 242 mg/dL Calcium Level 7.4 mg/dL Total Bilirubin 0.3 mg/dL Aspartate Amino Transf (AST/SGOT) 19 U/L Alanine Aminotransferase (ALT/SGPT) 20 U/L Alkaline Phosphatase 68 U/L Total Protein 4.6 g/dL Albumin 1.9 g/dL Globulin 2.7 Albumin/Globulin Ratio 0.703 Test 09/17/20 04:22 09/17/20 05:51 09/17/20 06:25 09/17/20 09:10 Segmented Neutrophils 96 % Lymphocytes 1 % Monocytes 3 % Platelet Estimate ADEQUATE Platelet Morphology NORMAL Bedside Glucose 244 Blood Gas Sample Site ARTERIAL LINE Blood Gas pH 7.303 Blood Gas PCO2 45.2 mmHg Blood Gas PO2 61.0 mmHg Blood Gas HCO3 21.9 mmol/L Blood Gas Base Excess -4.4 mmol/L Abdi Test N/A Arterial Blood Oxygen Saturation 89.1 % Deoxyhemoglobin 10.8 % Carboxyhemoglobin 0.3 % Methemoglobin 0.3 % Total Hemoglobin 12.6 % Total Oxygen Concentration 15.7 % Blood Gas Temperature 37 Oxygen Delivery Method (LAB) VENT Blood Gas Vent Mode AC Blood Gas Vent Rate 25 FiO2 90 % Blood Gas Tidal Volume 400 ML Blood Gas PEEP 10 CMH2O Total Carbon Dioxide 23.3 mmol/L Ammonia 36 umol/L Test 09/17/20 10:45 09/17/20 16:08 09/17/20 16:41 09/17/20 20:00 Bedside Glucose 218 186 175 Sodium Level 138 mmol/L Potassium Level 5.0 mmol/L Chloride Level 106.0 mmol/L Carbon Dioxide Level 24.6 mmol/L Glucose Level 209 mg/dL Blood Urea Nitrogen 62 mg/dL Creatinine 1.29 mg/dL Calcium Level 7.1 mg/dL Anion Gap 12.4 Estimated GFR () 67.8 Est GFR (CKD-EPI)(Non-Afr [place]) 56.1 BUN/Creatinine Ratio 48.0 Test 09/17/20 23:51 09/18/20 04:14 09/18/20 05:38 09/18/20 07:47 Bedside Glucose 135 173 White Blood Count 20.4 10^3/uL Red Blood Count 4.32 10^6/uL Hemoglobin 12.5 g/dL Hematocrit 38.3 % Mean Corpuscular Volume 88.7 fL Mean Corpuscular Hemoglobin 28.9 pg Mean Corpuscular Hemoglobin Concent 32.6 g/dL Red Cell Distribution Width 13.2 % Platelet Count 202 10^3/uL Mean Platelet Volume 10.0 fL Neutrophils (%) (Auto) 86.3 % Lymphocytes (%) (Auto) 4.3 % Monocytes (%) (Auto) 5.5 % Neutrophils # (Auto) 17.6 10^3/uL Lymphocytes # (Auto) 0.87 10^3/uL1 Monocytes # (Auto) 1.1 10^3/uL Absolute Immature Granulocyte (auto 0.74 10^3 u/L Absolute Eosinophils (auto) 0.1 10^3/uL Immature Granulocytes % 3.60 % Eosinophils % 0.3 % Basophils % 0.0 % Basophils # 0.0 10^3/uL Sodium Level 141 mmol/L Potassium Level 4.4 mmol/L Chloride Level 107.0 mmol/L Carbon Dioxide Level 25.2 mmol/L Anion Gap 13.2 Blood Urea Nitrogen 62 mg/dL Creatinine 1.21 mg/dL Estimated GFR () 73.1 Est GFR (CKD-EPI)(Non-Afr [place]) 60.4 BUN/Creatinine Ratio 51.0 Glucose Level 129 mg/dL Calcium Level 7.0 mg/dL Total Bilirubin 0.3 mg/dL Aspartate Amino Transf (AST/SGOT) 20 U/L Alanine Aminotransferase (ALT/SGPT) 24 U/L Alkaline Phosphatase 72 U/L Total Protein 4.9 g/dL Albumin 1.8 g/dL Globulin 3.1 Albumin/Globulin Ratio 0.580 Blood Gas Sample Site [place] Blood Gas pH 7.340 Blood Gas PCO2 47.4 mmHg Blood Gas PO2 76.1 mmHg Blood Gas HCO3 25.0 mmol/L Blood Gas Base Excess -1.1 mmol/L Abdi Test N/A Arterial Blood Oxygen Saturation 94.9 % Deoxyhemoglobin 5.1 % Carboxyhemoglobin 0.5 % Methemoglobin 0.4 % Total Hemoglobin 12.9 % Total Oxygen Concentration 17.1 % Blood Gas Temperature 37 Oxygen Delivery Method (LAB) VENT Blood Gas Vent Mode ACVC Blood Gas Vent Rate 25 FiO2 80 % Blood Gas Tidal Volume 400 ML Blood Gas PEEP 12 CMH2O Total Carbon Dioxide 26.5 mmol/L Test 09/18/20 11:26 09/18/20 18:01 09/18/20 20:17 09/18/20 23:51 Bedside Glucose 158 110 76 71 Test 09/19/20 04:30 09/19/20 05:19 09/19/20 05:21 09/19/20 05:25 White Blood Count 18.2 10^3/uL Red Blood Count 4.22 10^6/uL Hemoglobin 12.5 g/dL Hematocrit 36.8 % Mean Corpuscular Volume 87.2 fL Mean Corpuscular Hemoglobin 29.6 pg Mean Corpuscular Hemoglobin Concent 34.0 g/dL Red Cell Distribution Width 13.2 % Platelet Count 137 10^3/uL Mean Platelet Volume 10.4 fL Neutrophils (%) (Auto) 88.7 % Lymphocytes (%) (Auto) 4.6 % Monocytes (%) (Auto) 2.9 % Neutrophils # (Auto) 16.1 10^3/uL Lymphocytes # (Auto) 0.83 10^3/uL1 Monocytes # (Auto) 0.5 10^3/uL Absolute Immature Granulocyte (auto 0.38 10^3 u/L Absolute Eosinophils (auto) 0.3 10^3/uL Immature Granulocytes % 2.10 % Eosinophils % 1.7 % Basophils % 0.0 % Basophils # 0.0 10^3/uL D-Dimer 1.97 mg/L Sodium Level 140 mmol/L Potassium Level 4.1 mmol/L Chloride Level 106.0 mmol/L Carbon Dioxide Level 30.9 mmol/L Anion Gap 7.2 Blood Urea Nitrogen 40 mg/dL Creatinine 0.64 mg/dL Estimated GFR () 152.3 Est GFR (CKD-EPI)(Non-Afr [place]) 125.9 BUN/Creatinine Ratio 62.0 Glucose Level 121 mg/dL Calcium Level 7.4 mg/dL Phosphorus Level 3.0 mg/dL Magnesium Level 2.5 mg/dL Ferritin 1809 ng/mL Total Bilirubin 0.5 mg/dL Aspartate Amino Transf (AST/SGOT) 28 U/L Alanine Aminotransferase (ALT/SGPT) 32 U/L Alkaline Phosphatase 67 U/L Lactate Dehydrogenase 213 U/L Total Creatine Kinase 20 U/L C-Reactive Protein 18.69 mg/dL Total Protein 5.0 g/dL Albumin 1.5 g/dL Globulin 3.5 Albumin/Globulin Ratio 0.428 Triglycerides Level 91 mg/dL Procalcitonin 1.44 ng/mL Bedside Glucose 201 68 63 Test 09/19/20 07:31 09/19/20 11:30 09/19/20 16:33 09/20/20 00:03 Blood Gas Sample Site [place] Blood Gas pH 7.440 Blood Gas PCO2 39.8 mmHg Blood Gas PO2 65.1 mmHg Blood Gas HCO3 26.4 mmol/L Blood Gas Base Excess 2.2 mmol/L Abdi Test N/A Arterial Blood Oxygen Saturation 93.0 % Deoxyhemoglobin 6.9 % Carboxyhemoglobin 0.9 % Methemoglobin 0.4 % Total Hemoglobin 13.1 % Total Oxygen Concentration 16.9 % Blood Gas Temperature 37 Oxygen Delivery Method (LAB) VENT Blood Gas Vent Mode ACVC Blood Gas Vent Rate 30 FiO2 70 % Blood Gas Tidal Volume 400 ML Blood Gas PEEP 10 CMH2O Total Carbon Dioxide 27.6 mmol/L Bedside Glucose 162 165 266 Test 09/20/20 04:13 09/20/20 05:58 09/20/20 07:30 09/20/20 11:38 White Blood Count 16.6 10^3/uL Red Blood Count 4.21 10^6/uL Hemoglobin 12.0 g/dL Hematocrit 37.1 % Mean Corpuscular Volume 88.1 fL Mean Corpuscular Hemoglobin 28.5 pg Mean Corpuscular Hemoglobin Concent 32.3 g/dL Red Cell Distribution Width 13.3 % Platelet Count 127 10^3/uL Mean Platelet Volume 11.0 fL Neutrophils (%) (Auto) 90.4 % Lymphocytes (%) (Auto) 2.8 % Monocytes (%) (Auto) 3.1 % Neutrophils # (Auto) 15.0 10^3/uL Lymphocytes # (Auto) 0.47 10^3/uL1 Monocytes # (Auto) 0.5 10^3/uL Absolute Immature Granulocyte (auto 0.28 10^3 u/L Absolute Eosinophils (auto) 0.3 10^3/uL Immature Granulocytes % 1.70 % Eosinophils % 1.9 % Basophils % 0.1 % Basophils # 0.0 10^3/uL Sodium Level 140 mmol/L Potassium Level 4.1 mmol/L Chloride Level 106.0 mmol/L Carbon Dioxide Level 29.6 mmol/L Anion Gap 8.5 Blood Urea Nitrogen 24 mg/dL Creatinine 0.58 mg/dL Estimated GFR () 170.7 Est GFR (CKD-EPI)(Non-Afr [place]) 141.1 BUN/Creatinine Ratio 41.0 Glucose Level 110 mg/dL Calcium Level 7.3 mg/dL Total Bilirubin 0.7 mg/dL Aspartate Amino Transf (AST/SGOT) 27 U/L Alanine Aminotransferase (ALT/SGPT) 28 U/L Alkaline Phosphatase 70 U/L Total Protein 4.9 g/dL Albumin 1.4 g/dL Globulin 3.5 Albumin/Globulin Ratio 0.400 Bedside Glucose 72 182 Blood Gas Sample Site ART LINE Blood Gas pH 7.380 Blood Gas PCO2 42.9 mmHg Blood Gas PO2 64.1 mmHg Blood Gas HCO3 24.8 mmol/L Blood Gas Base Excess -0.4 mmol/L Abdi Test N/A Arterial Blood Oxygen Saturation 92.2 % Deoxyhemoglobin 7.8 % Carboxyhemoglobin 0.1 % Methemoglobin 0.3 % Total Hemoglobin 12.5 % Total Oxygen Concentration 16.2 % Blood Gas Temperature 37.0 Oxygen Delivery Method (LAB) VENT Blood Gas Vent Mode ACVC Blood Gas Vent Rate 28 FiO2 70 % Blood Gas Tidal Volume 400 ML Blood Gas PEEP 10 CMH2O Total Carbon Dioxide 26.1 mmol/L Test 09/20/20 16:35 09/20/20 23:51 09/21/20 00:06 09/21/20 04:09 Bedside Glucose 142 349 121 White Blood Count 12.7 10^3/uL Red Blood Count 3.86 10^6/uL Hemoglobin 11.4 g/dL Hematocrit 34.2 % Mean Corpuscular Volume 88.6 fL Mean Corpuscular Hemoglobin 29.5 pg Mean Corpuscular Hemoglobin Concent 33.3 g/dL Red Cell Distribution Width 13.3 % Platelet Count 112 10^3/uL Mean Platelet Volume 10.7 fL Neutrophils (%) (Auto) 87.8 % Lymphocytes (%) (Auto) 3.2 % Monocytes (%) (Auto) 5.2 % Neutrophils # (Auto) 11.2 10^3/uL Lymphocytes # (Auto) 0.41 10^3/uL1 Monocytes # (Auto) 0.7 10^3/uL Absolute Immature Granulocyte (auto 0.17 10^3 u/L Absolute Eosinophils (auto) 0.3 10^3/uL Immature Granulocytes % 1.30 % Eosinophils % 2.4 % Basophils % 0.1 % Basophils # 0.0 10^3/uL Sodium Level 140 mmol/L Potassium Level 3.9 mmol/L Chloride Level 105.0 mmol/L Carbon Dioxide Level 33.2 mmol/L Anion Gap 5.7 Blood Urea Nitrogen 18 mg/dL Creatinine 0.75 mg/dL Estimated GFR () 126.9 Est GFR (CKD-EPI)(Non-Afr [place]) 104.8 BUN/Creatinine Ratio 24.0 Glucose Level 135 mg/dL Calcium Level 7.1 mg/dL Phosphorus Level 3.0 mg/dL Magnesium Level 2.4 mg/dL Total Bilirubin 0.8 mg/dL Aspartate Amino Transf (AST/SGOT) 41 U/L Alanine Aminotransferase (ALT/SGPT) 32 U/L Alkaline Phosphatase 83 U/L Total Protein 5.0 g/dL Albumin 1.2 g/dL Globulin 3.8 Albumin/Globulin Ratio 0.315 Test 09/21/20 06:03 09/21/20 07:28 Bedside Glucose 103 Blood Gas Sample Site [place] Blood Gas pH 7.407 Blood Gas PCO2 51.4 mmHg Blood Gas PO2 85.8 mmHg Blood Gas HCO3 31.6 mmol/L Blood Gas Base Excess 5.9 mmol/L Abdi Test N/A Arterial Blood Oxygen Saturation 96.1 % Deoxyhemoglobin 3.9 % Carboxyhemoglobin 1.1 % Methemoglobin 0.1 % Total Hemoglobin 11.7 % Total Oxygen Concentration 15.7 % Blood Gas Temperature 37 Oxygen Delivery Method (LAB) VENT Blood Gas Vent Mode ACVC+ Blood Gas Vent Rate 26 FiO2 70 % Blood Gas Tidal Volume 400 ML Blood Gas PEEP 10 CMH2O Total Carbon Dioxide 33.2 mmol/L Current Medications Medications (Trade) Dose Ordered Sig/Adrianna Route PRN Reason Start Time Stop Time Status Last Admin Dose Admin Acetaminophen (Tylenol) 325 mg Q4H PRN PO PAIN 1 - 3 09/03/20 19:00 09/05/20 19:26 DC Morphine Sulfate (Morphine Sulfate) 2 mg Q4H PRN IV PAIN 4 - 6 09/03/20 19:00 09/04/20 19:28 DC Insulin Human Lispro (Humalog) 0-140 0 Units 141-200... ACHS SQ 09/03/20 21:00 09/13/20 19:43 DC 09/13/20 17:28 Dextrose 1,000 ml @ 100 mls/hr Q10H PRN IV HYPOGLYCEMIA 09/03/20 19:00 10/03/20 18:59 Dextrose (Dextrose 50%-Water Syringe) 25 ml STAT PRN IV HYPOGLYCEMIA 09/03/20 19:00 10/03/20 18:59 Glucagon (Glucagen) 1 mg STAT STAT IV 09/03/20 18:44 09/03/20 18:56 DC Heparin Sodium (Porcine) (Heparin) 5,000 unit Q8HR SQ 09/03/20 22:00 09/04/20 20:10 DC 09/04/20 14:00 Lisinopril (Zestril) 20 mg BID PO 09/03/20 21:00 09/14/20 11:07 DC 09/12/20 21:00 Azithromycin 500 mg/Sodium Chloride 250 ml @ 175 mls/hr Q24HRS IV 09/03/20 20:30 09/04/20 08:15 DC 09/03/20 21:11 Ceftriaxone Sodium 1000 mg/ Sodium Chloride 100 ml @ 100 mls/hr Q24HRS IV 09/03/20 19:30 09/04/20 08:15 DC 09/03/20 19:39 Sodium Chloride 1,000 ml @ 75 mls/hr [id number] IV 09/03/20 20:00 09/11/20 10:16 DC 09/11/20 01:20 Ceftriaxone Sodium (Rocephin) 1,000 mg STK-MED ONCE .ROUTE 09/03/20 19:35 09/03/20 19:35 DC Sodium Chloride 100 ml @ ud STK-MED ONCE IV 09/03/20 19:35 09/03/20 19:36 DC Zinc Sulfate (Zinc Sulfate) 220 mg DAILY PO 09/04/20 09:00 09/05/20 00:13 DC 09/04/20 08:22 Ascorbic Acid (Vitamin C) 500 mg BID PO 09/04/20 09:00 09/05/20 00:13 DC 09/04/20 20:22 Morphine Sulfate (Morphine Sulfate) 2 mg Q4H PRN IV PAIN 4 - 6 09/04/20 19:28 09/17/20 11:06 DC Enoxaparin Sodium (Lovenox) 75 mg BID SQ 09/04/20 20:30 09/05/20 11:39 DC 09/05/20 08:20 Azithromycin (Zithromax) 500 mg OT ONCE PO 09/05/20 00:00 09/05/20 02:22 DC 09/05/20 00:27 Ceftriaxone Sodium 2000 mg/ Sodium Chloride 100 ml @ 100 mls/hr Q24HRS IV 09/05/20 00:00 09/09/20 18:46 DC 09/08/20 23:59 Azithromycin (Zithromax) 250 mg DAILY PO 09/05/20 19:00 09/09/20 18:59 DC 09/09/20 08:31 Ceftriaxone Sodium (Rocephin) 1,000 mg STK-MED ONCE .ROUTE 09/05/20 00:25 09/05/20 00:26 DC Sodium Chloride 100 ml @ ud STK-MED ONCE IV 09/05/20 00:26 09/05/20 00:26 DC Enoxaparin Sodium (Lovenox) 40 mg DAILY SQ 09/06/20 09:00 09/09/20 18:47 DC 09/09/20 08:31 Ascorbic Acid (Vitamin C) 1,000 mg BID PO 09/05/20 21:00 10/05/20 20:59 09/21/20 09:00 Zinc Sulfate (Zinc Sulfate) 220 mg BID PO 09/05/20 21:00 10/05/20 20:59 09/21/20 09:00 Albuterol Sulfate (Ventolin Hfa) 2 inh RTQ4 IH 09/05/20 13:00 09/20/20 10:05 DC 09/20/20 08:30 Acetaminophen (Tylenol) 1,000 mg Q6H PRN PO PAIN 1 - 3 09/05/20 12:00 10/05/20 11:59 09/20/20 13:36 Enoxaparin Sodium (Lovenox) 40 mg STK-MED ONCE SQ 09/06/20 07:12 09/06/20 07:12 DC Remdesivir 200 mg/ Sodium Chloride 140 ml @ 120.69 mls/ hr OT STAT IV 09/07/20 18:45 09/07/20 19:54 DC 09/07/20 19:10 Remdesivir 100 mg/ Sodium Chloride 120 ml @ 111.111 mls/hr Q24HRS IV 09/08/20 19:00 09/13/20 07:12 DC 09/12/20 19:00 Potassium Chloride (Klor-Con 10) 40 meq OT PO 09/08/20 13:00 09/11/20 15:50 DC 09/09/20 04:56 Metoprolol Tartrate (Lopresser) 10 mg STAT STAT IVP 09/09/20 11:00 09/09/20 11:04 DC 09/09/20 11:34 Metoprolol Tartrate (Lopresser) 25 mg BID PO 09/09/20 21:00 09/14/20 11:02 DC 09/12/20 21:00 Enoxaparin Sodium (Lovenox) 80 mg BID SQ 09/09/20 19:00 09/11/20 15:51 DC 09/11/20 09:00 Sodium Chloride 250 ml @ ud STK-MED ONCE IV 09/10/20 12:50 09/10/20 12:51 DC Enoxaparin Sodium (Lovenox) 80 mg STK-MED ONCE SQ 09/10/20 21:17 09/10/20 21:17 DC Lorazepam (Ativan) 1 mg Q4HR PRN IV ANXIETY 09/11/20 00:30 09/18/20 08:58 DC 09/13/20 04:00 Enoxaparin Sodium (Lovenox) 80 mg BID SQ 09/11/20 21:00 09/13/20 15:41 DC 09/12/20 21:00 Methylprednisolone Acetate (Depo-Medrol) 40 mg Q8HR IM 09/11/20 22:00 09/11/20 18:19 DC Quetiapine Fumarate (Seroquel) 25 mg BID PO 09/12/20 21:00 09/13/20 15:41 DC 09/12/20 21:00 Quetiapine Fumarate (Seroquel) 25 mg BID PO 09/13/20 03:00 09/13/20 04:46 DC Dexmedetomidine HCl 400 mcg/ Sodium Chloride 100 ml @ 0 mls/hr IV 09/13/20 05:00 10/13/20 04:59 09/14/20 09:26 Sodium Chloride 100 ml @ ud STK-MED ONCE IV 09/13/20 05:16 09/13/20 05:16 DC Hydralazine HCl (Apresoline) 5 mg STAT STAT IV 09/13/20 08:19 09/13/20 08:21 DC 09/13/20 08:30 Hydralazine HCl (Apresoline) 5 mg STAT STAT IV 09/13/20 09:43 09/13/20 10:03 DC 09/13/20 09:43 Sterile Water (Water) 1,000 ml STK-MED ONCE .ROUTE 09/13/20 11:31 09/13/20 11:31 DC Sodium Chloride 1,000 ml @ ud STK-MED ONCE .ROUTE 09/13/20 11:31 09/13/20 11:31 DC Propofol 100 ml @ ud STK-MED ONCE IV 09/13/20 11:46 09/13/20 11:47 DC Propofol (Diprivan) 1,000 mg STAT IV 09/13/20 13:00 10/13/20 12:59 09/21/20 07:16 Sodium Chloride 1,000 ml @ 0 mls/hr Q0M ONCE IV 09/13/20 11:45 09/13/20 13:21 DC 09/13/20 11:45 Fentanyl Citrate 2000 mcg/Sodium Chloride 200 ml @ 7.4 mls/hr IV 09/13/20 16:00 09/13/20 19:50 DC 09/13/20 16:17 Methylprednisolone Sodium Succinate (Solu-Medrol) 40 mg Q8HR IV 09/13/20 22:00 09/17/20 07:00 DC 09/17/20 06:00 Succinylcholine Chloride (Quelicin) 100 mg STK-MED ONCE IV 09/13/20 11:58 09/13/20 18:48 DC Propofol (Diprivan) 150 mg STK-MED ONCE IV 09/13/20 11:58 09/13/20 18:48 DC Furosemide (Lasix) 20 mg STAT STAT IV 09/13/20 19:07 09/13/20 19:47 DC 09/13/20 19:07 Enoxaparin Sodium (Lovenox) 70 mg BID SQ 09/13/20 21:00 10/13/20 20:59 09/20/20 21:14 Insulin Human Lispro (Humalog) 0-140 0 Units 141-200... Q6 SQ 09/14/20 00:00 10/16/22 20:59 09/20/20 11:42 Fentanyl Citrate 5000 mcg/Sodium Chloride 500 ml @ 11.4 mls/hr IV 09/13/20 20:00 10/13/20 19:59 09/20/20 15:25 Sodium Chloride 500 ml @ 500 mls/hr Q1H ONCE IV 09/13/20 21:00 09/13/20 21:59 DC 09/13/20 21:00 Sodium Chloride 500 ml @ ud STK-MED ONCE IV 09/13/20 20:34 09/13/20 20:34 DC Sodium Chloride 250 ml @ ud STK-MED ONCE IV 09/13/20 20:34 09/13/20 20:34 DC Norepinephrine Bitartrate (Levophed) 4 mg STK-MED ONCE .ROUTE 09/13/20 20:34 09/13/20 20:35 DC Norepinephrine Bitartrate 8 mg/ Sodium Chloride 250 ml @ 0 mls/hr PRN PRN IV HYPOTENSION 09/13/20 21:00 09/19/20 10:29 DC 09/18/20 13:20 Furosemide (Lasix) 40 mg STK-MED ONCE .ROUTE 09/13/20 21:19 09/13/20 21:19 DC Docusate Sodium (Colace) 100 mg BID PO 09/14/20 21:00 10/14/20 20:59 09/20/20 21:13 Ceftriaxone Sodium 1000 mg/ Sodium Chloride 100 ml @ 200 mls/hr Q24HRS IV 09/14/20 15:00 09/19/20 09:11 DC 09/18/20 15:09 Azithromycin 500 mg/Sodium Chloride 250 ml @ 175 mls/hr Q24HRS IV 09/14/20 16:00 09/17/20 15:59 DC 09/16/20 16:00 Sodium Chloride 1,000 ml @ 75 mls/hr [id number] IV 09/14/20 15:30 09/17/20 11:06 DC 09/16/20 17:28 Heparin Sodium/ Sodium Chloride 500 ml @ ud STK-MED ONCE IV 09/14/20 18:32 09/14/20 18:32 DC Vecuronium [place] (Norcuron) 10 mg STK-MED ONCE .ROUTE 09/14/20 18:40 09/14/20 18:40 DC Sterile Water (Water) 1,000 ml STK-MED ONCE .ROUTE 09/15/20 00:38 09/15/20 00:39 DC Insulin Glargine (Lantus) 10 unit BID SQ 09/15/20 14:30 09/16/20 12:30 DC 09/16/20 08:28 Sterile Water (Water) 1,000 ml STK-MED ONCE .ROUTE 09/15/20 20:12 09/15/20 20:13 DC Vecuronium [place] (Norcuron) 10 mg STAT ONCE IV 09/16/20 10:00 09/16/20 10:12 DC 09/16/20 11:00 Insulin Glargine (Lantus) 20 unit BID SQ 09/16/20 21:00 10/16/20 20:59 09/18/20 09:00 Pantoprazole Sodium (Protonix Iv) 40 mg DAILY IV 09/17/20 09:00 10/17/20 08:59 09/21/20 09:00 Sterile Water (Water) 1,000 ml STK-MED ONCE .ROUTE 09/16/20 16:52 09/16/20 16:53 DC Furosemide (Lasix) 20 mg STAT ONCE IV 09/17/20 08:00 09/17/20 08:17 DC 09/17/20 08:00 Quetiapine Fumarate (Seroquel) 25 mg BID PO 09/17/20 09:30 10/17/20 09:29 09/21/20 09:00 Vecuronium [place] (Norcuron) 10 mg Q2 PRN IV AGITATION 09/17/20 11:30 09/18/20 08:53 DC 09/17/20 15:00 Furosemide (Lasix) 40 mg DAILY IV 09/17/20 11:30 10/17/20 11:29 09/21/20 09:00 Lactulose (Cephulac) 20 gm DAILY NG 09/18/20 09:00 09/18/20 08:56 DC Norepinephrine Bitartrate (Levophed) 4 mg STK-MED ONCE .ROUTE 09/17/20 16:16 09/17/20 16:17 DC Sodium Chloride 250 ml @ ud STK-MED ONCE IV 09/17/20 16:16 09/17/20 16:17 DC Sterile Water (Water) 1,000 ml STK-MED ONCE .ROUTE 09/17/20 18:20 09/17/20 18:21 DC Sodium Chloride 100 ml @ ud STK-MED ONCE IV 09/17/20 22:27 09/17/20 22:28 DC Fentanyl Citrate (Sublimaze) 50 mcg STK-MED ONCE .ROUTE 09/17/20 22:28 09/17/20 22:29 DC Vecuronium [place] (Norcuron) 10 mg Q2 IV 09/18/20 09:00 09/20/20 10:04 DC 09/20/20 08:00 Lactulose (Cephulac) 20 gm DAILY NG 09/18/20 09:00 10/18/20 08:59 09/20/20 09:00 Vecuronium [place] (Norcuron) 5 mg Q1HR PRN IV Additional Paralysis 09/18/20 09:00 10/18/20 08:59 09/21/20 08:10 Sterile Water (Water) 1,000 ml STK-MED ONCE .ROUTE 09/18/20 09:55 09/18/20 09:55 DC Heparin Sodium/ Dextrose 500 ml @ ud STK-MED ONCE IV 09/18/20 13:59 09/18/20 13:59 DC Cefepime HCl 2 gm/ Sodium Chloride 100 ml @ 100 mls/hr Q8H IV 09/19/20 09:00 09/20/20 10:04 DC 09/20/20 09:00 Norepinephrine Bitartrate 8 mg/ Sodium Chloride 250 ml @ 0 mls/hr TITRATE ONCE IV 09/19/20 11:00 09/19/20 11:01 DC 09/19/20 10:30 Norepinephrine Bitartrate 8 mg/ Sodium Chloride 250 ml @ 0 mls/hr TITRATE IV 09/19/20 12:00 10/19/20 11:59 09/19/20 11:54 Sterile Water (Water) 1,000 ml STK-MED ONCE .ROUTE 09/20/20 08:08 09/20/20 08:09 DC Vecuronium [place] (Norcuron) 10 mg Q3H PRN IV vent/dsynchonry hypoxia 09/20/20 10:30 10/20/20 10:29 09/21/20 00:05 Midazolam HCl (Versed) 2 mg Q2H PRN IV SEDATION 09/20/20 10:30 10/20/20 10:29 UNV Albuterol Sulfate (Ventolin Hfa) 2 inh PRN PRN IH wheezing 09/20/20 10:30 10/20/20 10:29 Vasopressin 20 unit/Sodium Chloride 100 ml @ 0 mls/hr PRN ONCE IV 09/20/20 17:00 09/20/20 17:01 DC VTE VTE Risk Total Score: 2 VTE Risk Score VTE Risk: Score 0-1 = Low Risk (Aggressive mobilization; early ambulation; no VTE prophylaxis required) Score 2: Moderate Risk (Intermittent/Pneumatic Compression Device OR Lovenox/Heparin/Coumadin) Score 3-4: High Risk (Intermittent/Pneumatic Compression Device AND Lovenox/Heparin/Coumadin) Score > or =5: Highest Risk (Intermittent/Pneumatic Compression Device AND Lovenox/Heparin/Coumadin) Antico:Hep/LMWH/Coum/Xarelto: Yes VTE VTE Present on Admission: No Currently receiving anticoagul: No VTE Risk Total Score: 2 Antico:Hep/LMWH/Coum/Xarelto: Yes Assessment/Plan Assessment/Plan Assessment/Plan Plan Plan #1 Neuro: The pt is intubated and sedated on prop and fentanyl. The pt is getting PRN vecuronium #2 CV: THe pt has been normotensive but will prn need levo to keep MAP >65. #3 Pulm: The pt is tx with remdesivir lovenox and decadron. VEnt settings of 70% on 10 PEEP. Pt will get proned. #4 GI: COnt tf #5 Renal: Monitor for renal failure, replete lytes, lasix PRN #6 ID: [id number] #7 Endo: keep FS 150-180 #8 Heme: Tx plats >10k hgb >7 #9 PPx: lovenox and PPI I discussed pt with [employer] HEALTH SERVICES and completed the video assessment with assistance from the [facility]. I spent a total of greater than 60 minutes formulating critical care for this patient today. I saw this patient and completed a full visual exam via audio-visual HIPAA compliant technology. ALVARO HACKETT MD Sep 21, 2020 11:26
--- NOTE | 2020-09-21 12:50 | DIREP ---
PROCEDURE:CHEST 1 VIEW COMPARISON:[facility], CR, XRAY CHEST SINGLE VW, 09/19/2020, 09:42 AM. INDICATIONS:ett FINDINGS: LUNGS/PLEURA:ETT in satisfactory position above the saurabh. No significant change in bilateral ground-glass infiltrates. Trace right pleural effusion may be present. CARDIAC:Normal cardiac silhouette and normal pulmonary vascularity. MEDIASTINUM:Normal BONES:Normal OTHER:Stable right PICC line. NGT courses subdiaphragmatic and off the field of view. CONCLUSION:Stable multifocal pneumonia consistent with Covid 19. Dictated by: Coreen Bowen MD on 09/21/2020 at 12:42 PM
[2020-09-21] MEDS ORDERED: LASIX IV ONE (15:00)
[2020-09-21] MEDS ORDERED: BUMINATE 25% IV ONE (15:00)
[2020-09-21] MEDS ORDERED: WATER ONE (15:26)
[2020-09-21] MEDS ORDERED: VERSED ONE (16:16)
[2020-09-21] MEDS: VERSED IV PRN (16:19)
[2020-09-21] MEDS: NS IV SCH (18:03)
[2020-09-21] MEDS: SUBLIMAZE IV SCH (18:03)
[2020-09-21] MEDS: D5W-1/2NS 1000ML 1,000 ML IV SCH (19:32)
--- NOTE | 2020-09-21 20:34 | PRM.PN ---
Subjective Subjective Pt s/e this AM at bedside. Overall status remains unchanged. Review of Systems Other Unable to be obtained due to intubation/sedation Exam Vital Signs Vital Signs Date Time Temp Pulse Resp B/P (MAP) Pulse Ox O2 Delivery O2 Flow Rate FiO2 09/21/20 17:30 99.3 81 27 130/54 (79) 100 09/21/20 17:30 70 09/21/20 16:00 Mechanical Ventilator 09/20/20 16:00 70.00 Meds/Labs/Orders Medication List: Current Medications Medications (Trade) Dose Ordered Sig/Adrianna PRN Reason Start Time Stop Time Status Last Admin Albuterol Sulfate (Ventolin Hfa) 2 inh PRN PRN wheezing 09/20/20 10:30 10/20/20 10:29 Midazolam HCl (Versed) 2 mg Q2H PRN SEDATION 09/20/20 10:30 10/20/20 10:29 UNV Norepinephrine Bitartrate 8 mg/ Sodium Chloride 250 ml @ 0 mls/hr TITRATE 09/19/20 12:00 10/19/20 11:59 09/19/20 11:54 Vecuronium [place] (Norcuron) 10 mg Q3H PRN vent/dsynchonry hypoxia 09/20/20 10:30 10/20/20 10:29 09/21/20 00:05 Lab results: Laboratory Tests Test 09/20/20 00:03 09/20/20 04:13 09/20/20 05:58 09/20/20 07:30 Bedside Glucose 266 72 White Blood Count 16.6 10^3/uL Red Blood Count 4.21 10^6/uL Hemoglobin 12.0 g/dL Hematocrit 37.1 % Mean Corpuscular Volume 88.1 fL Mean Corpuscular Hemoglobin 28.5 pg Mean Corpuscular Hemoglobin Concent 32.3 g/dL Red Cell Distribution Width 13.3 % Platelet Count 127 10^3/uL Mean Platelet Volume 11.0 fL Neutrophils (%) (Auto) 90.4 % Lymphocytes (%) (Auto) 2.8 % Monocytes (%) (Auto) 3.1 % Neutrophils # (Auto) 15.0 10^3/uL Lymphocytes # (Auto) 0.47 10^3/uL1 Monocytes # (Auto) 0.5 10^3/uL Absolute Immature Granulocyte (auto 0.28 10^3 u/L Absolute Eosinophils (auto) 0.3 10^3/uL Immature Granulocytes % 1.70 % Eosinophils % 1.9 % Basophils % 0.1 % Basophils # 0.0 10^3/uL Sodium Level 140 mmol/L Potassium Level 4.1 mmol/L Chloride Level 106.0 mmol/L Carbon Dioxide Level 29.6 mmol/L Anion Gap 8.5 Blood Urea Nitrogen 24 mg/dL Creatinine 0.58 mg/dL Estimated GFR () 170.7 Est GFR (CKD-EPI)(Non-Afr [place]) 141.1 BUN/Creatinine Ratio 41.0 Glucose Level 110 mg/dL Calcium Level 7.3 mg/dL Total Bilirubin 0.7 mg/dL Aspartate Amino Transf (AST/SGOT) 27 U/L Alanine Aminotransferase (ALT/SGPT) 28 U/L Alkaline Phosphatase 70 U/L Total Protein 4.9 g/dL Albumin 1.4 g/dL Globulin 3.5 Albumin/Globulin Ratio 0.400 Blood Gas Sample Site ART LINE Blood Gas pH 7.380 Blood Gas PCO2 42.9 mmHg Blood Gas PO2 64.1 mmHg Blood Gas HCO3 24.8 mmol/L Blood Gas Base Excess -0.4 mmol/L Abdi Test N/A Arterial Blood Oxygen Saturation 92.2 % Deoxyhemoglobin 7.8 % Carboxyhemoglobin 0.1 % Methemoglobin 0.3 % Total Hemoglobin 12.5 % Total Oxygen Concentration 16.2 % Blood Gas Temperature 37.0 Oxygen Delivery Method (LAB) VENT Blood Gas Vent Mode ACVC Blood Gas Vent Rate 28 FiO2 70 % Blood Gas Tidal Volume 400 ML Blood Gas PEEP 10 CMH2O Total Carbon Dioxide 26.1 mmol/L Test 09/20/20 11:38 09/20/20 16:35 09/20/20 23:51 09/21/20 00:06 Bedside Glucose 182 142 349 121 Test 09/21/20 04:09 09/21/20 06:03 09/21/20 07:28 09/21/20 11:20 White Blood Count 12.7 10^3/uL Red Blood Count 3.86 10^6/uL Hemoglobin 11.4 g/dL Hematocrit 34.2 % Mean Corpuscular Volume 88.6 fL Mean Corpuscular Hemoglobin 29.5 pg Mean Corpuscular Hemoglobin Concent 33.3 g/dL Red Cell Distribution Width 13.3 % Platelet Count 112 10^3/uL Mean Platelet Volume 10.7 fL Neutrophils (%) (Auto) 87.8 % Lymphocytes (%) (Auto) 3.2 % Monocytes (%) (Auto) 5.2 % Neutrophils # (Auto) 11.2 10^3/uL Lymphocytes # (Auto) 0.41 10^3/uL1 Monocytes # (Auto) 0.7 10^3/uL Absolute Immature Granulocyte (auto 0.17 10^3 u/L Absolute Eosinophils (auto) 0.3 10^3/uL Immature Granulocytes % 1.30 % Eosinophils % 2.4 % Basophils % 0.1 % Basophils # 0.0 10^3/uL Sodium Level 140 mmol/L Potassium Level 3.9 mmol/L Chloride Level 105.0 mmol/L Carbon Dioxide Level 33.2 mmol/L Anion Gap 5.7 Blood Urea Nitrogen 18 mg/dL Creatinine 0.75 mg/dL Estimated GFR () 126.9 Est GFR (CKD-EPI)(Non-Afr [place]) 104.8 BUN/Creatinine Ratio 24.0 Glucose Level 135 mg/dL Calcium Level 7.1 mg/dL Phosphorus Level 3.0 mg/dL Magnesium Level 2.4 mg/dL Total Bilirubin 0.8 mg/dL Aspartate Amino Transf (AST/SGOT) 41 U/L Alanine Aminotransferase (ALT/SGPT) 32 U/L Alkaline Phosphatase 83 U/L Total Protein 5.0 g/dL Albumin 1.2 g/dL Globulin 3.8 Albumin/Globulin Ratio 0.315 Bedside Glucose 103 169 Blood Gas Sample Site [place] Blood Gas pH 7.407 Blood Gas PCO2 51.4 mmHg Blood Gas PO2 85.8 mmHg Blood Gas HCO3 31.6 mmol/L Blood Gas Base Excess 5.9 mmol/L Abdi Test N/A Arterial Blood Oxygen Saturation 96.1 % Deoxyhemoglobin 3.9 % Carboxyhemoglobin 1.1 % Methemoglobin 0.1 % Total Hemoglobin 11.7 % Total Oxygen Concentration 15.7 % Blood Gas Temperature 37 Oxygen Delivery Method (LAB) VENT Blood Gas Vent Mode ACVC+ Blood Gas Vent Rate 26 FiO2 70 % Blood Gas Tidal Volume 400 ML Blood Gas PEEP 10 CMH2O Total Carbon Dioxide 33.2 mmol/L Test 09/21/20 17:17 Bedside Glucose 186 Assessment/Plan Assessment/Plan Assessment/Plan A 64 y.o. male w/ PMHx significant for HTN, HLD, DM II, who was admitted on Sep 03 for Acute Hypoxemic respiratory failure. Initially, his COVID testing returned negative and his hypoxemia was thought to be 2/2 another etiology. However, after no etiology could be elucidated, a COVID PCR was repeated and returned positive. He was then started on treatment for COVID-19 with Azithromycin, steroids, Remdesivir, CCP, and Zinc/Vitamin C. Despite treatment, his respiratory status slowly declined and he was intubated on Sep 10. At this time, he is stable on current sedation and intermittently requiring pressors pressors. However, ABG obtained this AM shows a P/F ratio of < 100. He was started on proning protocol on Sep 18, 16h prone and 8h supine. COVID PNEUMONIA SEVERE ARDS ACUTE HYPOXEMIC RESPIRATORY FAILURE SEPTIC SHOCK - Telemed Intensivists following; appreciate assistance with vent and medical management - Completed 5 days of Remdesivir - Completed 5 days of Azithromycin - Pt was started on Dexamethasone initially for treatment of COVID; he was transitioned to Methylprednisolone at some point, which was discontinued on Sep 17. - Pt has completed 5 days of Rocephin for CAP PNA today; will discontinue - Duonebs q4h scheduled - Given P/F ratio, will start proning. 16h prone, 8h supine. holding proning tonight due to periorbital edema and chemosis - continue sedation with RASS goal of < - 2 - Vecuronium pushes for paralysis - Pt meets criteria for septic shock given +SIRS, infection, and hypotension requiring pressors - goal fluid balance should be negative to keep Pt as dry as possible ESSENTIAL HYPERTENSION - stable with pressors - holding home antihypertensives for now T2DM - blood sugars very labile - Currently on SQ Lantus 20 BID, with Humalog SSI#2 - enteral feeding ongoing - monitor for hypoglycemia now that Pt is off steroids STAGE I ZOEY, resolved - likely pre-renal given hypotension and septic shock requiring pressors - continue to monitor Cr closely; currently on the downtrend - avoid further hypotension Keep MAP > 60 - avoid nephrotoxins where possible - monitor UOP; - Keep pt as dry as possible while maintaining UOP/renal function Hypoalbuminemia - albumin very low at 1.2 - will give 25% Albumin once today and re-evaluate in AM - likely contributing to periorbital edema and chemosis Periorbital Edema Chemosis - likely 2/2 low albumin and proning - holding proning tonight and giving albumin - monitor in AM Feeding - GLUCERNA 1.5CAL Analgesia - fentanyl gtt Sedation - Propofol VTE ppx - lovenox Head of bed - Flat when prone, 30 deg when supine GI ppx - protonix Spontaneous breathing trial - not ready Bowels care - resumed BMs 09/18; rectal tube placed UOP - Crawford in place Time Spent: > 35 minutes spent in chart review, patient evaluation, coordination of care, and documentation, including 30 min of critical care time BAMBI KAUR DO Sep 21, 2020 20:34
[2020-09-22] VITALS (113 sets, daily range): BP systolic 89–218; BP diastolic 28–90
[2020-09-22] MEDS: D5W-1/2NS 1000ML 1,000 ML IV SCH (01:04)
[2020-09-22] MEDS: DIPRIVAN IV SCH ×5 (01:05→20:58)
[2020-09-22 04:13] LABS: BASOPHIL % 0.1 % (0.0-0.2); EOSINOPHIL # 0.3 10^3/uL (0.0-0.2); LYMPHOCYTES # 0.58 10^3/uL1 (1.0-4.8); LYMPHOCYTES % 6.6 % (24.0-44.0); MEAN CORP HGB 29.2 pg (26-34); MONOCYTES # 0.5 10^3/uL (0.3-0.8); MONOCYTES % 5.9 % (5.0-12.0); NEUTROPHIL # 7.2 10^3/uL (1.8-7.7); NEUTROPHILS % 82.9 % (41.0-85.0); PLATELET COUNT 116 10^3/uL (150-400); RED CELL DISTRIBUTION WIDTH 13.4 % (11.5-14.5)
[2020-09-22 04:29] LABS: CALCIUM 7.6 mg/dL (8.4-10.5); CARBON DIOXIDE 34.8 mmol/L (20.0-32)
[2020-09-22] MEDS: HUMALOG SQ SCH ×4 (05:41→17:15)
[2020-09-22 05:50] LABS: EOSINOPHIL 4 % (1-4); LYMPHOCYTE 4 % (25-36); MONOCYTE 10 % (3-9); SEGMENTED NEUTROPHILS 82 % (31-76)
[2020-09-22] MEDS ORDERED: VERSED ONE ×4 (07:35→20:22)
[2020-09-22] MEDS: VERSED IV PRN ×4 (07:50→20:24)
[2020-09-22 07:59] LABS: BE(B) 4.3 mmol/L (-2.0-2.0); HCO3act 29.7 mmol/L (22.0-26.0); pO2 66.2 mmHg (80.0-100.0)
[2020-09-22] MEDS: LASIX IV SCH (08:15)
[2020-09-22] MEDS: CEPHULAC NG SCH (08:15)
[2020-09-22] MEDS: PROTONIX IV IV SCH (08:15)
[2020-09-22] MEDS: COLACE PO SCH ×2 (08:16→21:00)
[2020-09-22] MEDS: VITAMIN C PO SCH ×2 (08:16→21:00)
[2020-09-22] MEDS: LOVENOX SQ SCH ×2 (08:16→21:00)
[2020-09-22] MEDS: ZINC SULFATE PO SCH ×2 (08:16→21:00)
[2020-09-22] MEDS: SEROQUEL PO SCH ×2 (08:16→21:00)
[2020-09-22] MEDS: LANTUS SQ SCH ×2 (08:26→21:40)
[2020-09-22] MEDS: VENTOLIN HFA IH PRN (08:30)
[2020-09-22] MEDS: TYLENOL PO PRN (09:22)
[2020-09-22] MEDS: BUMINATE 25% IV SCH ×2 (10:00→17:15)
--- NOTE | 2020-09-22 11:00 | NUR ---
Dr. Craven at bedside assessing patient. Notified provider had to restart blood pressure. arterial mean arterial pressure decreased to 58. Levophed started at 2mcg/min. will titrate up to keep map above 65
--- NOTE | 2020-09-22 12:34 | TELE.CONS ---
Review of Systems Allergies: Coded Allergies: No Known Allergies (Unverified , 09/03/20) Scheduled Lisinopril (Lisinopril), 1 TAB PO BID, (Reported) Metformin Hcl (Metformin Hcl), 1,000 MG PO BID, (Reported) VITALS REVIEW VITALS Vital Sign - Last 24 Hours 09/22/20 09/22/20 09/22/20 09/22/20 07:00 07:15 07:30 07:45 Temp 99.5 99.5 99.5 99.5 Pulse 82 81 81 86 Resp B/P (MAP) 112/57 (75) 116/54 (74) 117/53 (74) 198/28 (84) 113/53 (73) Pulse Ox 100 100 100 97 09/22/20 09/22/20 09/22/20 09/22/20 08:00 08:00 08:00 08:15 Temp 99.5 Pulse 85 90 B/P (MAP) 131/64 (86) 154/67 146/59 (88) Pulse Ox 98 96 O2 Delivery Mechanical Ventilator FiO2 70 09/22/20 09/22/20 09/22/20 09/22/20 08:15 08:24 08:30 08:30 Temp 99.5 99.5 Pulse 89 91 90 Resp B/P (MAP) 126/57 (80) 121/55 (77) Pulse Ox 97 95 97 O2 Delivery Mechanical Ventilator FiO2 70 70 09/22/20 09/22/20 09/22/20 09/22/20 08:30 08:45 09:00 09:15 Temp 99.5 99.7 99.9 Pulse 91 95 95 98 Resp B/P (MAP) 121/53 (75) 117/61 (79) 131/54 (79) 128/56 (80) Pulse Ox 97 95 94 93 O2 Delivery Mechanical Ventilator FiO2 70 09/22/20 09/22/20 09/22/20 09:30 09:45 10:02 Temp 99.9 99.9 Pulse 102 104 102 Resp B/P (MAP) 136/52 (80) 117/48 (71) Pulse Ox 90 95 95 FiO2 70 Intake and Output 09/22/20 06:00 Intake Total 3095 ml Output Total 4250 ml Balance -1155 ml VTE VTE Risk Total Score: 2 VTE Risk Score VTE Risk: Score 0-1 = Low Risk (Aggressive mobilization; early ambulation; no VTE prophylaxis required) Score 2: Moderate Risk (Intermittent/Pneumatic Compression Device OR Lovenox/Heparin/Coumadin) Score 3-4: High Risk (Intermittent/Pneumatic Compression Device AND Lovenox/Heparin/Coumadin) Score > or =5: Highest Risk (Intermittent/Pneumatic Compression Device AND Lovenox/Heparin/Coumadin) Antico:Hep/LMWH/Coum/Xarelto: Yes VTE VTE Present on Admission: No Currently receiving anticoagul: No VTE Risk Total Score: 2 Antico:Hep/LMWH/Coum/Xarelto: Yes Assessment/Plan Assessment/Plan Assessment/Plan #1 Neuro: The pt is intubated and sedated on prop and fentanyl. The pt is getting PRN vecuronium #2 CV: THe pt has been normotensive but will prn need levo to keep MAP >65. #3 Pulm: The pt is tx with remdesivir lovenox and decadron. VEnt settings of 70% on 10 PEEP. Proning as feasible, held for periorbital edema and chemosis #4 GI: Enteral feedings #5 Renal: Monitor for renal failure, replete lytes, lasix PRN #6 ID: [id number] + #[id number] Endo: keep FS 150-180 #8 Heme: Tx plats >10k hgb >7 #9 PPx: lovenox and PPI I discussed pt with [facility] [employer] and completed the video assessment with assistance from the [employer] [employer]IST. I spent a total of greater than 60 minutes formulating critical care for this patient today. I saw this patient and completed a full visual exam via audio-visual HIPAA compliant technology. Problems: (1) Pneumonia ICD Code: J18.9 - Pneumonia, unspecified organism SNOMED: 344091622 (2) Acute respiratory failure ICD Code: J96.00 - Acute respiratory failure, unspecified whether with hypoxia or hypercapnia SNOMED: 44177585 (3) Pneumonia due to COVID-19 virus ICD Code: U07.1 - COVID-19; J12.82 - Pneumonia due to coronavirus disease 2019 SNOMED: [id number] Plan as above JEFFY ESPINOZA MD Sep 22, 2020 12:34
[2020-09-22] MEDS: NS IV SCH (16:48)
[2020-09-22] MEDS: SUBLIMAZE IV SCH (16:48)
[2020-09-22] MEDS ORDERED: WATER ONE (17:13)
--- NOTE | 2020-09-22 18:00 | PRM.PN ---
Subjective Subjective Pt s/e this AM at bedside. Overall no big changes in status. His periorbital edema and chemosis have improved significantly, however. Review of Systems Other unable to obtain due to intubation/sedation Exam Vital Signs VS - Last 72 Hours, by Label Date Time Temp Pulse Resp B/P (MAP) Pulse Ox O2 Delivery O2 Flow Rate FiO2 09/22/20 17:15 95 26 98 70 09/22/20 16:00 83 26 97 70 09/22/20 15:30 99.1 92 26 108/46 (66) 99 09/22/20 15:15 99.1 93 26 101/44 (63) 99 09/22/20 15:00 99.0 95 26 114/57 (76) 98 105/45 (65) 09/22/20 14:45 98.8 98 27 152/53 (86) 96 09/22/20 14:31 84 26 98 70 09/22/20 14:30 98.6 83 26 122/50 (74) 98 09/22/20 14:15 98.6 77 26 123/51 (75) 97 09/22/20 14:00 98.8 77 26 125/62 (83) 98 119/52 (74) 09/22/20 13:45 98.8 79 26 114/50 (71) 99 09/22/20 13:30 98.8 79 26 112/50 (70) 100 09/22/20 13:15 98.6 79 26 108/49 (68) 100 09/22/20 13:00 98.6 78 26 123/64 (83) 100 122/53 (76) 09/22/20 12:45 98.6 76 26 130/55 (80) 99 09/22/20 12:30 98.6 73 26 143/56 (85) 98 09/22/20 12:15 98.8 81 27 110/51 (70) 98 09/22/20 12:00 Mechanical Ventilator 09/22/20 12:00 92 26 99 70 09/22/20 12:00 99.0 81 26 118/63 (81) 99 111/52 (71) 09/22/20 11:45 99.0 85 26 105/50 (68) 100 09/22/20 11:30 99.3 89 27 100/49 (66) 99 09/22/20 11:15 99.5 89 29 113/51 (71) 94 09/22/20 11:09 99.5 97 26 112/52 (72) 99 91/46 (61) 09/22/20 10:02 102 26 95 70 09/22/20 09:45 99.9 104 16 117/48 (71) 95 09/22/20 09:30 99.9 102 26 136/52 (80) 90 09/22/20 09:15 99.9 98 26 131/54 (79) 93 09/22/20 09:00 99.7 95 26 117/61 (79) 94 128/56 (80) 09/22/20 08:45 99.5 95 28 121/53 (75) 95 09/22/20 08:30 91 26 97 09/22/20 08:30 91 26 97 Mechanical Ventilator 70 09/22/20 08:30 90 26 97 70 09/22/20 08:30 99.5 91 26 121/55 (77) 95 09/22/20 08:24 26 Mechanical Ventilator 70 09/22/20 08:15 99.5 89 20 126/57 (80) 97 09/22/20 08:15 154/67 09/22/20 08:00 90 26 96 70 09/22/20 08:00 Mechanical Ventilator 09/22/20 08:00 99.5 85 26 131/64 (86) 98 146/59 (88) 09/22/20 07:45 99.5 86 26 198/28 (84) 97 09/22/20 07:30 99.5 81 26 117/53 (74) 100 09/22/20 07:15 99.5 81 26 116/54 (74) 100 09/22/20 07:00 99.5 82 26 112/57 (75) 100 113/53 (73) 09/22/20 06:15 99.9 88 26 97/48 (64) 100 09/22/20 06:00 99.9 89 26 104/51 (68) 99 99/48 (65) 09/22/20 05:45 99.9 91 26 101/50 (67) 99 09/22/20 05:30 99.9 89 27 113/52 (72) 98 09/22/20 05:15 99.9 92 27 115/52 (73) 98 09/22/20 05:00 99.9 94 26 129/64 (85) 100 141/57 (85) 09/22/20 04:45 99.9 95 26 140/56 (84) 96 09/22/20 04:30 99.9 91 26 106/51 (69) 97 09/22/20 04:15 99.9 87 26 103/51 (68) 98 09/22/20 04:15 91 26 100 70 09/22/20 04:00 100.0 90 26 110/57 (74) 100 99/51 (67) 09/22/20 04:00 88 26 98 70 09/22/20 04:00 Mechanical Ventilator 09/22/20 03:45 100.0 91 26 101/51 (68) 100 09/22/20 03:30 100.2 91 26 108/53 (71) 100 09/22/20 03:15 100.2 95 26 102/52 (69) 100 09/22/20 03:00 100.4 95 27 110/56 (74) 100 105/53 (70) 09/22/20 02:45 100.4 97 26 107/52 (70) 91 09/22/20 02:30 100.4 100 26 110/53 (72) 93 09/22/20 02:15 100.4 103 26 113/52 (72) 92 09/22/20 02:00 100.4 102 26 116/61 (79) 93 116/53 (74) 09/22/20 01:45 100.2 103 26 129/57 (81) 99 09/22/20 01:30 100.2 108 26 149/61 (90) 100 09/22/20 01:15 100.0 108 26 150/59 (89) 97 09/22/20 01:00 100.2 100 26 130/62 (84) 97 123/55 (77) 09/22/20 00:45 100.2 97 26 114/51 (72) 97 09/22/20 00:30 100.2 98 26 103/48 (66) 98 09/22/20 00:20 91 26 96 70 09/22/20 00:15 100.2 97 26 111/50 (70) 97 09/22/20 00:00 Mechanical Ventilator 09/22/20 00:00 99 26 98 70 09/22/20 00:00 99.9 97 26 139/61 (87) 97 124/52 (76) 09/21/20 23:45 99.9 99 23 155/61 (92) 96 09/21/20 23:30 99.9 102 23 171/66 (101) 96 09/21/20 23:15 99.7 93 18 122/52 (75) 96 09/21/20 23:00 99.5 93 27 141/63 (89) 95 135/55 (81) 09/21/20 22:45 99.3 95 18 141/58 (85) 95 09/21/20 22:30 99.1 93 18 136/56 (82) 95 09/21/20 22:15 99.0 100 18 128/53 (78) 96 09/21/20 22:00 99.0 96 20 138/58 (84) 97 113/49 (70) 09/21/20 21:45 98.8 90 25 122/54 (76) 95 09/21/20 21:30 98.8 90 26 143/60 (87) 93 09/21/20 21:15 98.8 87 26 143/61 (88) 93 09/21/20 21:00 98.8 87 27 169/78 (108) 93 167/67 (100) 09/21/20 20:45 98.8 96 20 197/83 (121) 93 09/21/20 20:30 99.0 90 27 185/73 (110) 94 09/21/20 20:20 89 26 100 Mechanical Ventilator 70 09/21/20 20:20 89 26 100 70 09/21/20 20:15 94 31 191/84 (119) 96 09/21/20 20:00 94 207/105 (139) 96 195/90 (125) 09/21/20 20:00 99 26 96 70 09/21/20 20:00 Mechanical Ventilator 09/21/20 19:45 99.1 77 26 130/54 (79) 100 09/21/20 19:30 99.1 76 27 134/56 (82) 99 09/21/20 19:15 99.1 77 26 127/54 (78) 98 09/21/20 17:30 99.3 81 27 130/54 (79) 100 09/21/20 17:30 78 26 99 70 09/21/20 17:15 99.3 85 26 132/57 (82) 100 09/21/20 17:00 99.3 89 19 140/69 (92) 98 128/55 (79) 09/21/20 16:45 99.3 92 25 100/45 (63) 100 09/21/20 16:30 99.3 92 26 109/49 (69) 100 09/21/20 16:15 99.3 93 22 146/59 (88) 100 09/21/20 16:00 79 26 99 70 09/21/20 16:00 Mechanical Ventilator 09/21/20 16:00 99.1 94 23 141/67 (91) 100 126/54 (78) 09/21/20 15:45 99.1 88 26 118/53 (74) 100 09/21/20 15:30 99.3 87 26 121/56 (77) 100 09/21/20 15:27 72 26 98 70 09/21/20 15:15 99.3 89 25 106/49 (68) 100 09/21/20 15:00 99.3 89 21 128/67 (87) 100 109/52 (71) 09/21/20 14:45 99.1 92 23 101/48 (65) 100 09/21/20 14:30 99.1 93 25 105/49 (67) 100 09/21/20 14:15 99.1 93 24 107/50 (69) 100 09/21/20 14:00 99.1 94 18 136/66 (89) 99 108/49 (68) 09/21/20 13:45 99.1 96 28 111/48 (69) 100 09/21/20 13:30 99.1 96 26 117/51 (73) 100 09/21/20 13:15 99.0 101 26 118/50 (72) 99 09/21/20 13:00 98.8 97 21 143/70 (94) 100 112/49 (70) 09/21/20 12:45 98.6 96 20 123/53 (76) 100 09/21/20 12:30 98.6 98 26 112/49 (70) 100 09/21/20 12:15 98.6 92 26 97/47 (64) 98 09/21/20 12:00 Mechanical Ventilator 09/21/20 12:00 98.4 92 26 127/63 (84) 99 99/48 (65) 09/21/20 12:00 96 26 98 70 09/21/20 11:45 98.2 96 26 112/51 (71) 98 09/21/20 11:30 98.2 95 26 97/47 (64) 99 09/21/20 11:15 98.2 96 26 135/59 (84) 98 09/21/20 11:00 98.2 95 27 132/58 (82) 96 99/47 (64) 09/21/20 10:45 98.1 98 26 100/48 (65) 97 09/21/20 10:40 98 26 96 70 09/21/20 10:30 98.1 97 26 102/49 (66) 96 09/21/20 10:15 97.9 97 26 97/48 (64) 96 09/21/20 10:00 97.9 108 27 161/84 (109) 96 142/70 (94) 09/21/20 09:45 97.9 95 26 101/50 (67) 96 09/21/20 09:30 97.9 100 26 124/56 (78) 96 09/21/20 09:15 97.9 90 26 108/50 (69) 100 09/21/20 09:00 97.9 81 26 133/61 (85) 97 103/55 (71) 09/21/20 09:00 164/69 09/21/20 08:45 97.9 83 26 131/64 (86) 96 09/21/20 08:30 98.1 76 26 154/69 (97) 99 09/21/20 08:25 83 26 98 70 09/21/20 08:15 -4/-5 (-5) 09/21/20 08:00 98.4 77 26 146/71 (96) 100 117/54 (75) 09/21/20 08:00 Mechanical Ventilator 09/21/20 08:00 78 26 100 70 09/21/20 07:45 98.4 75 26 113/53 (73) 100 09/21/20 07:30 98.2 77 26 119/54 (75) 100 09/21/20 07:15 98.2 78 26 115/53 (73) 100 09/21/20 07:15 28 Mechanical Ventilator 70 09/21/20 07:00 98.2 77 26 145/66 (92) 100 112/52 (72) 09/21/20 04:00 Mechanical Ventilator 09/21/20 04:00 80 26 98 70 09/21/20 04:00 86 26 98 70 09/21/20 03:45 98.4 86 26 121/52 (75) 98 09/21/20 03:30 98.4 87 26 137/56 (83) 97 09/21/20 03:15 98.4 90 25 115/52 (73) 98 09/21/20 03:00 98.4 89 25 144/70 (94) 97 117/52 (73) 09/21/20 02:45 98.4 89 26 124/54 (77) 96 09/21/20 02:30 98.4 90 29 127/54 (78) 96 09/21/20 02:15 98.6 92 28 134/54 (80) 96 09/21/20 02:00 98.6 93 27 161/76 (104) 96 143/56 (85) 09/21/20 01:45 98.8 98 26 150/59 (89) 96 09/21/20 01:30 98.8 97 26 148/58 (88) 97 09/21/20 01:15 99.1 98 26 157/61 (93) 97 09/21/20 01:00 99.3 98 26 163/81 (108) 97 165/63 (97) 09/21/20 00:45 99.5 98 26 154/62 (92) 97 09/21/20 00:30 99.7 102 26 168/67 (100) 97 09/21/20 00:20 91 26 97 70 09/21/20 00:15 99.7 89 26 124/58 (80) 97 09/21/20 00:00 82 26 99 70 09/21/20 00:00 99.7 87 26 143/70 (94) 96 140/61 (87) 09/21/20 00:00 Mechanical Ventilator 09/20/20 23:45 99.7 86 26 143/62 (89) 98 09/20/20 23:30 99.5 85 27 136/60 (85) 97 09/20/20 23:15 99.5 82 26 145/62 (89) 98 09/20/20 23:00 99.5 82 26 152/75 (100) 98 147/64 (91) 09/20/20 22:30 99.5 80 20 146/63 (90) 99 09/20/20 22:15 99.5 78 28 138/60 (86) 98 09/20/20 22:00 99.3 78 24 139/72 (94) 98 135/60 (85) 09/20/20 21:45 99.3 78 26 137/61 (86) 98 09/20/20 21:30 99.3 78 26 141/61 (87) 98 09/20/20 21:15 99.5 78 26 124/56 (78) 98 09/20/20 21:00 99.5 79 26 137/62 (87) 98 124/56 (78) 09/20/20 20:45 99.5 80 26 122/55 (77) 97 09/20/20 20:30 82 26 97 70 09/20/20 20:30 99.5 82 27 149/62 (91) 97 09/20/20 20:30 82 26 97 Mechanical Ventilator 70 09/20/20 20:15 99.3 82 26 137/61 (86) 96 09/20/20 20:01 99.3 81 26 177/71 (106) 97 163/69 (100) 09/20/20 20:00 Mechanical Ventilator 09/20/20 20:00 99.3 81 27 167/71 (103) 97 09/20/20 20:00 80 26 98 70 09/20/20 19:45 99.1 82 28 209/63 (111) 98 09/20/20 19:30 99.3 80 26 179/80 (113) 99 09/20/20 19:15 99.3 80 26 117/60 (79) 98 09/20/20 19:00 99.3 80 26 115/59 (77) 98 114/61 (78) 09/20/20 18:45 99.3 82 26 99/55 (70) 98 09/20/20 18:30 99.3 82 26 97/54 (68) 97 09/20/20 18:15 99.1 84 26 96/54 (68) 96 09/20/20 18:00 99.0 83 26 119/61 (80) 96 111/58 (75) 09/20/20 17:45 99.1 87 26 121/60 (80) 92 09/20/20 17:30 99.1 91 26 143/66 (91) 92 09/20/20 17:29 93 26 93 70 09/20/20 17:15 99.0 90 27 112/57 (75) 93 09/20/20 17:00 99.0 90 26 119/60 (79) 93 110/56 (74) 09/20/20 16:45 99.0 91 123/62 (82) 96 09/20/20 16:30 98.6 101 26 189/82 (117) 97 09/20/20 16:00 99.0 73 26 147/72 (97) 98 113/51 (71) 09/20/20 16:00 90 21 93 70 09/20/20 16:00 Mechanical Ventilator 70.00 09/20/20 15:45 99.0 74 26 122/54 (76) 99 09/20/20 15:30 75 26 119/53 (75) 98 09/20/20 15:15 74 26 116/51 (72) 99 09/20/20 15:00 74 26 151/75 (100) 99 117/52 (73) 09/20/20 14:45 74 26 127/55 (79) 99 09/20/20 14:30 82 26 101/46 (64) 98 09/20/20 14:17 88 26 116/54 (74) 99 73/38 (50) 09/20/20 14:15 85 26 88/43 (58) 100 09/20/20 14:11 94 26 99 09/20/20 14:08 94 26 99 70 09/20/20 14:00 96 29 146/80 (102) 97 162/75 (104) 09/20/20 13:45 99.9 96 27 95/49 (64) 99 09/20/20 13:30 99.9 97 26 101/50 (67) 100 09/20/20 13:15 99.7 97 26 100/49 (66) 100 09/20/20 13:00 99.7 97 26 132/67 (88) 99 106/52 (70) 09/20/20 12:00 98 26 100 70 09/20/20 12:00 99.5 97 26 142/68 (92) 99 108/52 (70) 09/20/20 12:00 Mechanical Ventilator 70.00 09/20/20 11:45 99.1 98 26 119/56 (77) 99 09/20/20 11:30 99.1 96 26 101/50 (67) 98 09/20/20 11:15 99.0 96 30 108/53 (71) 97 09/20/20 11:00 98.8 99 28 138/64 (88) 97 107/52 (70) 09/20/20 10:45 98.6 98 27 97/48 (64) 97 09/20/20 10:30 98.4 98 26 99/49 (66) 96 09/20/20 10:21 98 26 95 70 09/20/20 10:15 98.2 99 26 103/51 (68) 95 09/20/20 10:00 98.2 102 30 145/65 (91) 95 108/51 (70) 09/20/20 09:45 98.2 101 28 112/52 (72) 96 09/20/20 09:45 28 Mechanical Ventilator 70 09/20/20 09:30 98.2 102 28 117/56 (76) 95 09/20/20 09:15 98.2 102 28 123/58 (79) 95 09/20/20 09:00 98.2 92 28 161/81 (107) 95 140/66 (90) 09/20/20 09:00 169/74 09/20/20 08:45 98.6 89 28 154/67 (96) 96 09/20/20 08:30 79 28 98 09/20/20 08:30 98.6 99 28 96 09/20/20 08:17 79 28 98 70 09/20/20 08:17 79 28 98 Mechanical Ventilator 70 09/20/20 08:15 99.0 79 28 100/49 (66) 98 09/20/20 08:00 Mechanical Ventilator 70.00 09/20/20 08:00 101 28 95 70 09/20/20 08:00 99.0 77 28 130/65 (86) 97 111/52 (71) 09/20/20 07:45 99.0 76 27 112/52 (72) 97 09/20/20 07:30 99.0 77 28 116/53 (74) 97 09/20/20 07:15 99.0 78 28 118/54 (75) 97 09/20/20 07:00 99.1 79 29 140/69 (92) 97 123/55 (77) 09/20/20 04:00 88 28 97 70 09/20/20 04:00 Mechanical Ventilator 09/20/20 04:00 76 28 98 70 09/20/20 04:00 76 28 98 09/20/20 03:15 99.5 81 28 130/58 (82) 98 09/20/20 03:00 99.5 79 28 152/69 (96) 97 138/60 (86) 09/20/20 02:45 99.5 82 28 129/57 (81) 97 09/20/20 02:30 99.3 83 28 128/56 (80) 97 09/20/20 02:15 99.3 82 28 117/52 (73) 97 09/20/20 02:00 99.3 84 28 120/61 (80) 96 103/48 (66) 09/20/20 01:45 99.3 84 28 104/47 (66) 96 09/20/20 01:30 99.5 86 28 106/47 (66) 95 09/20/20 01:15 99.3 87 28 126/53 (77) 94 09/20/20 01:00 99.5 88 29 135/69 (91) 94 118/50 (72) 09/20/20 00:45 99.7 90 28 148/57 (87) 94 09/20/20 00:30 99.7 83 28 114/53 (73) 98 09/20/20 00:15 81 28 97 70 09/20/20 00:15 99.9 84 28 116/53 (74) 97 09/20/20 00:15 81 28 97 09/20/20 00:00 99.9 84 28 129/56 (80) 97 114/53 (73) 09/20/20 00:00 83 28 97 70 09/20/20 00:00 Mechanical Ventilator 09/19/20 23:45 99.9 84 28 131/58 (82) 96 09/19/20 23:30 99.7 83 28 124/56 (78) 96 09/19/20 23:15 99.7 83 28 127/58 (81) 97 09/19/20 23:01 99.7 88 28 163/79 (107) 97 155/66 (95) 09/19/20 23:00 99.7 94 28 159/70 (99) 97 09/19/20 22:45 78 28 98 Mechanical Ventilator 70 09/19/20 22:45 99.7 78 28 109/52 (71) 98 09/19/20 22:30 99.7 81 26 107/53 (71) 98 09/19/20 22:15 99.7 79 25 108/51 (70) 98 09/19/20 22:00 99.7 80 28 124/61 (82) 97 113/54 (73) 09/19/20 21:45 99.7 80 27 112/53 (72) 98 09/19/20 21:30 99.7 79 24 115/55 (75) 98 09/19/20 21:15 99.7 79 29 111/53 (72) 98 09/19/20 21:00 99.7 80 28 134/60 (84) 98 119/56 (77) 09/19/20 20:45 99.7 78 28 132/59 (83) 98 09/19/20 20:30 99.9 80 28 115/53 (73) 98 09/19/20 20:25 78 28 98 70 09/19/20 20:25 78 28 98 09/19/20 20:15 99.9 80 28 122/55 (77) 98 09/19/20 20:00 99.9 78 28 129/59 (82) 98 114/54 (74) 09/19/20 20:00 Mechanical Ventilator 09/19/20 20:00 82 28 98 70 09/19/20 19:45 99.9 79 28 112/53 (72) 98 09/19/20 19:30 99.7 78 28 117/55 (75) 98 09/19/20 19:15 99.7 79 28 159/69 (99) 98 09/19/20 19:00 99.7 79 28 133/61 (85) 97 114/52 (72) General Appearance: Other HEENT: Atraumatic, PERRLA, Other (periorbital edema and chemosis are much improved) Respiratory: Other (dimished bilaterally, but more clear today than previous days ) Cardiovascular: Regular rate, Normal S1, Normal S2, No murmurs Abdominal: Normal bowel sounds, Soft Extremities: No clubbing, No cyanosis, No edema, Normal pulses Skin: No rash, No breakdown, No lesions Neuro: Other (intubated/sedated) Psych/Mental Status: Other (intubated/sedated) Meds/Labs/Orders Medication List: Current Medications Medications (Trade) Dose Ordered Sig/Adrianna PRN Reason Start Time Stop Time Status Last Admin Albumin Human (Buminate 25%) 100 ml Q8H 09/22/20 10:00 09/23/20 09:59 09/22/20 17:15 Albuterol Sulfate (Ventolin Hfa) 2 inh PRN PRN wheezing 09/20/20 10:30 10/20/20 10:29 09/22/20 08:30 Midazolam HCl (Versed) 2 mg Q2H PRN SEDATION 09/20/20 10:30 10/20/20 10:29 UNV Vecuronium [place] (Norcuron) 10 mg Q3H PRN vent/dsynchonry hypoxia 09/20/20 10:30 10/20/20 10:29 09/21/20 00:05 Lab results: Laboratory Tests Test 09/20/20 23:51 09/21/20 00:06 09/21/20 04:09 09/21/20 06:03 Bedside Glucose 349 121 103 White Blood Count 12.7 10^3/uL Red Blood Count 3.86 10^6/uL Hemoglobin 11.4 g/dL Hematocrit 34.2 % Mean Corpuscular Volume 88.6 fL Mean Corpuscular Hemoglobin 29.5 pg Mean Corpuscular Hemoglobin Concent 33.3 g/dL Red Cell Distribution Width 13.3 % Platelet Count 112 10^3/uL Mean Platelet Volume 10.7 fL Neutrophils (%) (Auto) 87.8 % Lymphocytes (%) (Auto) 3.2 % Monocytes (%) (Auto) 5.2 % Neutrophils # (Auto) 11.2 10^3/uL Lymphocytes # (Auto) 0.41 10^3/uL1 Monocytes # (Auto) 0.7 10^3/uL Absolute Immature Granulocyte (auto 0.17 10^3 u/L Absolute Eosinophils (auto) 0.3 10^3/uL Immature Granulocytes % 1.30 % Eosinophils % 2.4 % Basophils % 0.1 % Basophils # 0.0 10^3/uL Sodium Level 140 mmol/L Potassium Level 3.9 mmol/L Chloride Level 105.0 mmol/L Carbon Dioxide Level 33.2 mmol/L Anion Gap 5.7 Blood Urea Nitrogen 18 mg/dL Creatinine 0.75 mg/dL Estimated GFR () 126.9 Est GFR (CKD-EPI)(Non-Afr Vietnamese) 104.8 BUN/Creatinine Ratio 24.0 Glucose Level 135 mg/dL Calcium Level 7.1 mg/dL Phosphorus Level 3.0 mg/dL Magnesium Level 2.4 mg/dL Total Bilirubin 0.8 mg/dL Aspartate Amino Transf (AST/SGOT) 41 U/L Alanine Aminotransferase (ALT/SGPT) 32 U/L Alkaline Phosphatase 83 U/L Total Protein 5.0 g/dL Albumin 1.2 g/dL Globulin 3.8 Albumin/Globulin Ratio 0.315 Test 09/21/20 07:28 09/21/20 11:20 09/21/20 17:17 09/21/20 21:14 Blood Gas Sample Site [place] Blood Gas pH 7.407 Blood Gas PCO2 51.4 mmHg Blood Gas PO2 85.8 mmHg Blood Gas HCO3 31.6 mmol/L Blood Gas Base Excess 5.9 mmol/L Abdi Test N/A Arterial Blood Oxygen Saturation 96.1 % Deoxyhemoglobin 3.9 % Carboxyhemoglobin 1.1 % Methemoglobin 0.1 % Total Hemoglobin 11.7 % Total Oxygen Concentration 15.7 % Blood Gas Temperature 37 Oxygen Delivery Method (LAB) VENT Blood Gas Vent Mode ACVC+ Blood Gas Vent Rate 26 FiO2 70 % Blood Gas Tidal Volume 400 ML Blood Gas PEEP 10 CMH2O Total Carbon Dioxide 33.2 mmol/L Bedside Glucose 169 186 137 Test 09/22/20 00:35 09/22/20 03:56 09/22/20 04:21 09/22/20 05:36 Bedside Glucose 149 157 White Blood Count 8.7 10^3/uL Red Blood Count 3.46 10^6/uL Hemoglobin 10.1 g/dL Hematocrit 31.0 % Mean Corpuscular Volume 89.6 fL Mean Corpuscular Hemoglobin 29.2 pg Mean Corpuscular Hemoglobin Concent 32.6 g/dL Red Cell Distribution Width 13.4 % Platelet Count 116 10^3/uL Mean Platelet Volume 10.7 fL Neutrophils (%) (Auto) 82.9 % Lymphocytes (%) (Auto) 6.6 % Monocytes (%) (Auto) 5.9 % Neutrophils # (Auto) 7.2 10^3/uL Lymphocytes # (Auto) 0.58 10^3/uL1 Monocytes # (Auto) 0.5 10^3/uL Absolute Immature Granulocyte (auto 0.13 10^3 u/L Absolute Eosinophils (auto) 0.3 10^3/uL Immature Granulocytes % 1.50 % Eosinophils % 3.0 % Basophils % 0.1 % Basophils # 0.0 10^3/uL Sodium Level 140 mmol/L Potassium Level 3.8 mmol/L Chloride Level 103.0 mmol/L Carbon Dioxide Level 34.8 mmol/L Anion Gap 6.0 Blood Urea Nitrogen 20 mg/dL Creatinine 0.72 mg/dL Estimated GFR () 133.0 Est GFR (CKD-EPI)(Non-Afr Vietnamese) 109.9 BUN/Creatinine Ratio 27.0 Glucose Level 203 mg/dL Calcium Level 7.6 mg/dL Phosphorus Level 2.9 mg/dL Magnesium Level 2.1 mg/dL Total Bilirubin 0.9 mg/dL Aspartate Amino Transf (AST/SGOT) 30 U/L Alanine Aminotransferase (ALT/SGPT) 32 U/L Alkaline Phosphatase 125 U/L Total Protein 4.8 g/dL Albumin 1.4 g/dL Globulin 3.4 Albumin/Globulin Ratio 0.411 Segmented Neutrophils 82 % Lymphocytes 4 % Monocytes 10 % Absolute Eosinophils (Manual) 4 % Platelet Estimate SLIGHTLY DECREASED Platelet Morphology NORMAL Test 09/22/20 07:42 09/22/20 12:27 09/22/20 17:10 Blood Gas Sample Site [place] Blood Gas pH 7.410 Blood Gas PCO2 48.0 mmHg Blood Gas PO2 66.2 mmHg Blood Gas HCO3 29.7 mmol/L Blood Gas Base Excess 4.3 mmol/L Abdi Test N/A Arterial Blood Oxygen Saturation 92.9 % Deoxyhemoglobin 7.1 % Carboxyhemoglobin 0.3 % Methemoglobin 0.3 % Total Hemoglobin 12.0 % Total Oxygen Concentration 15.6 % Blood Gas Temperature 37 Oxygen Delivery Method (LAB) VENT Blood Gas Vent Mode ACVC Blood Gas Vent Rate 26 FiO2 70 % Blood Gas Tidal Volume 400 ML Blood Gas PEEP 10 CMH2O Total Carbon Dioxide 31.2 mmol/L Bedside Glucose 140 200 Assessment/Plan Assessment/Plan Assessment/Plan A 64 y.o. male w/ PMHx significant for HTN, HLD, DM II, who was admitted on Sep 03 for Acute Hypoxemic respiratory failure. Initially, his COVID testing returned negative and his hypoxemia was thought to be 2/2 another etiology. However, after no etiology could be elucidated, a COVID PCR was repeated and returned positive. He was then started on treatment for COVID-19 with Azithromycin, steroids, Remdesivir, CCP, and Zinc/Vitamin C. Despite treatment, his respiratory status slowly declined and he was intubated on Sep 10. At this time, he is stable on current sedation and intermittently requiring pressors pressors. However, ABG obtained this AM shows a P/F ratio of < 100. He was started on proning protocol on Sep 18, 16h prone and 8h supine. This was held starting the evening of Sep 21 due to periorbital edema and chemosis COVID PNEUMONIA SEVERE ARDS ACUTE HYPOXEMIC RESPIRATORY FAILURE SEPTIC SHOCK - Telemed Intensivists following; appreciate assistance with vent and medical management - Completed 5 days of Remdesivir - Completed 5 days of Azithromycin - Pt was started on Dexamethasone initially for treatment of COVID; he was transitioned to Methylprednisolone at some point, which was discontinued on Sep 17. - Pt has completed 5 days of Rocephin for CAP PNA today; will discontinue - Duonebs q4h scheduled - Given P/F ratio, will start proning. 16h prone, 8h supine. holding proning due to periorbital edema and chemosis - continue sedation with RASS goal of < - 2 - Vecuronium pushes for paralysis - Pt meets criteria for septic shock given +SIRS, infection, and hypotension requiring pressors - goal fluid balance should be negative to keep Pt as dry as possible ESSENTIAL HYPERTENSION - stable with pressors - holding home antihypertensives for now T2DM - blood sugars very labile - Currently on SQ Lantus 20 BID, with Humalog SSI#2 - enteral feeding ongoing STAGE I ZOEY, resolved - likely pre-renal given hypotension and septic shock requiring pressors - continue to monitor Cr closely; currently on the downtrend - avoid further hypotension Keep MAP > 60 - avoid nephrotoxins where possible - monitor UOP; - Keep pt as dry as possible while maintaining UOP/renal function Hypoalbuminemia - albumin very low at 1.2 [09/21]; improved to 1.4 with 25% Albumin - will give 25% Albumin q8h x3 today and re-check Albumin in AM. This may provide some benefit to periorbital and pulmonary edema given how low his albumin was Periorbital Edema Chemosis - likely 2/2 low albumin and proning - holding proning tonight and giving albumin - improved significantly; continue to monitor Feeding - GLUCERNA 1.5CAL Analgesia - fentanyl gtt Sedation - Propofol VTE ppx - lovenox Head of bed - 30 degrees GI ppx - protonix Spontaneous breathing trial - not ready Bowels care - having regular BMs UOP - Crawford in place Time Spent: > 35 minutes spent in chart review, patient evaluation, coordination of care, and documentation, including 30 min of critical care time BAMBI KAUR DO Sep 22, 2020 18:00
[2020-09-22] MEDS: NORCURON IV PRN (20:25)
--- NOTE | 2020-09-22 22:10 | NUR ---
Called Dr. Matias and MD came to the bedside now. Aware of elevated BP 200/68 on arterial line and BP cuff runs 15-20 points mmHG lower than arterial line. MD aware pt responds to increased propofol temporarily and RN increased fentanyl infusion from 3 mcgs/kg/hour to 4 mcgs/kg/hour at 2200 to increase sedation and lower BP. Pt is paralyzed and sedated. MD aware pt has paradoxical response to paralytics and sedation medications on a daily basis with unexpected responses. Pt is off levophed infusion since AM per 7 AM RN
--- NOTE | 2020-09-22 22:20 | NUR ---
Dr. Matias aware arterial BP now running 201/68 and cuff BP is 144/65. states to use and treat cuff BP only. No further tx needed at this time
--- NOTE | 2020-09-22 23:15 | NUR ---
Daughter called for update. Teaching done re: sedation (propofol) and fentanyl infusions and elevated BP tonight and full plan of care for pt during this shift. Aware of stable o2 sats on vent with Fio2 of 70%
[2020-09-23] VITALS (86 sets, daily range): BP systolic 82–200; BP diastolic 28–79
--- NOTE | 2020-09-23 | NUR ---
Pt sedated on vent. BP stable at this time
[2020-09-23] MEDS: DIPRIVAN IV SCH ×7 (00:15→23:37)
[2020-09-23] MEDS: D5W-1/2NS 1000ML 1,000 ML IV SCH ×2 (00:17→20:55)
[2020-09-23] MEDS: BUMINATE 25% IV SCH (02:00)
--- NOTE | 2020-09-23 03:45 | NUR ---
Called and spoke to Dr. Matias re: new fever up to 100.9 rectally after cool bath given at 0215. Asked MD if he would like me to wait or given acetaminophen now. MD states to wait until he gets back to me about ARRIAZA cultures.
--- NOTE | 2020-09-23 04:10 | NUR ---
Stat PCXR done per MD order. U/A and urine culture drawn by RN from sterile franz port and sent to lab. Stat CBC with AM labs drawn by RN from arterial line with 1 set blood culture. 2nd set blood culture drawn by [employer] support [employer] from peripheral site.
[2020-09-23] MEDS: OFIRMEV IV PRN (04:30)
[2020-09-23 05:00] LABS: BASOPHIL % 0.1 % (0.0-0.2); EOSINOPHIL # 0.4 10^3/uL (0.0-0.2); EOSINOPHIL % 3.3 % (0.0-5.0); LYMPHOCYTES % 7.6 % (24.0-44.0); MEAN CORP HGB 28.9 pg (26-34); MONOCYTES # 0.6 10^3/uL (0.3-0.8); MONOCYTES % 5.9 % (5.0-12.0); NEUTROPHIL # 8.6 10^3/uL (1.8-7.7); NEUTROPHILS % 81.1 % (41.0-85.0); PLATELET COUNT 132 10^3/uL (150-400); RED CELL DISTRIBUTION WIDTH 13.3 % (11.5-14.5)
[2020-09-23 05:14] LABS: CALCIUM 8.2 mg/dL (8.4-10.5); CARBON DIOXIDE 38.3 mmol/L (20.0-32)
--- NOTE | 2020-09-23 05:40 | NUR ---
Dr. Matias on rounds. Aware of stat CBC and U/A results. Aware temp decreasing to 100.2 at this time rectally
[2020-09-23 05:43] LABS: APPEARANCE,URINE CLEAR (CLEAR); BILIRUBIN,URINE NEGATIVE (NEGATIVE); UA COLOR YELLOW (YELLOW); UROBILINOGEN,URINE >=8.0 (NEGATIVE)
--- NOTE | 2020-09-23 06:30 | NUR ---
Pt had moderate amount brown smeared soft BM. Linens changed after 2 baths
[2020-09-23] MEDS: HUMALOG SQ SCH ×4 (06:45→17:16)
--- NOTE | 2020-09-23 07:00 | NUR ---
Report given to Gonzalo [employer]. Reviewed events of 7 pm shift with paradoxical response to vecuronium and versed.
--- NOTE | 2020-09-23 07:00 | NUR ---
Received report form MIGUEL Rivers. Assumed patient care. Oncoming shift with propofol at 50mcg/kg/min and fentanyl 4mcg/hr.
[2020-09-23 07:40] LABS: ABG PCO2 57.2 mmHg (35.0-45.0); ABG PH 7.421 (7.350-7.450); BE(B) 9.8 mmol/L (-2.0-2.0); HCO3act 36.4 mmol/L (22.0-26.0); pO2 71.7 mmHg (80.0-100.0)
[2020-09-23] MEDS: PROTONIX IV IV SCH (09:00)
[2020-09-23] MEDS: COLACE PO SCH ×2 (09:00→21:00)
[2020-09-23] MEDS: LOVENOX SQ SCH ×2 (09:00→21:00)
[2020-09-23] MEDS: CEPHULAC NG SCH (09:00)
[2020-09-23] MEDS: LASIX IV SCH (09:00)
[2020-09-23] MEDS: ZINC SULFATE PO SCH ×2 (09:00→21:00)
[2020-09-23] MEDS: SEROQUEL PO SCH ×2 (09:00→21:00)
[2020-09-23] MEDS: VITAMIN C PO SCH ×2 (09:00→21:00)
[2020-09-23] MEDS: LANTUS SQ SCH ×3 (09:50→21:45)
[2020-09-23] MEDS: VERSED IV PRN ×2 (10:05→23:44)
[2020-09-23] MEDS ORDERED: VERSED ONE ×2 (10:05→23:42)
--- NOTE | 2020-09-23 10:15 | NUR ---
Completed telemedicine rounds with Dr. Lainez, reviewed overnight events and the need for Levophed yesterday temporarily. Reviewed current vitals and ABG results, as well as vent settings. Also made aware current sedation infusion rates of propofol at 50mcg/kg/min and fentanyl at 4mcg/kg/hr. No new orders received.
--- NOTE | 2020-09-23 10:30 | PRM.PN ---
Subjective Subjective Pt s/e this AM at bedside. He fevered overnight to 101F, but is otherwise was hemodynamically stable. Blood and urine cultures were obtained. Review of Systems Other unable to be obtained due to intubation/sedation Exam Vital Signs Vital Signs Date Time Temp Pulse Resp B/P (MAP) Pulse Ox O2 Delivery O2 Flow Rate FiO2 09/23/20 10:07 99.0 100 25 141/61 (87) 95 166/63 (97) 09/23/20 08:11 Mechanical Ventilator 70 09/23/20 04:00 70.00 General Appearance: Other (intubated/sedated) HEENT: PERRLA Respiratory: Other (diminished bilaterally. No significant change) Cardiovascular: Regular rate, Normal S1, Normal S2, No murmurs Abdominal: Normal bowel sounds, Soft Extremities: No clubbing, No cyanosis, No edema Skin: No rash, No lesions Neuro: Other (intubated/sedated) Psych/Mental Status: Other (intubated/sedated) Meds/Labs/Orders Medication List: Current Medications Medications (Trade) Dose Ordered Sig/Adrianna PRN Reason Start Time Stop Time Status Last Admin Acetaminophen (Ofirmev) 1,000 mg Q8H PRN see dose instructions 09/23/20 04:30 10/23/20 04:29 09/23/20 04:30 Albuterol Sulfate (Ventolin Hfa) 2 inh PRN PRN wheezing 09/20/20 10:30 10/20/20 10:29 09/22/20 08:30 Midazolam HCl (Versed) 2 mg Q2H PRN SEDATION 09/20/20 10:30 10/20/20 10:29 UNV Vecuronium [place] (Norcuron) 10 mg Q3H PRN vent/dsynchonry hypoxia 09/20/20 10:30 10/20/20 10:29 09/22/20 20:25 Lab results: Laboratory Tests Test 09/21/20 11:20 09/21/20 17:17 09/21/20 21:14 09/22/20 00:35 Bedside Glucose 169 186 137 149 Test 09/22/20 03:56 09/22/20 04:21 09/22/20 05:36 09/22/20 07:42 White Blood Count 8.7 10^3/uL Red Blood Count 3.46 10^6/uL Hemoglobin 10.1 g/dL Hematocrit 31.0 % Mean Corpuscular Volume 89.6 fL Mean Corpuscular Hemoglobin 29.2 pg Mean Corpuscular Hemoglobin Concent 32.6 g/dL Red Cell Distribution Width 13.4 % Platelet Count 116 10^3/uL Mean Platelet Volume 10.7 fL Neutrophils (%) (Auto) 82.9 % Lymphocytes (%) (Auto) 6.6 % Monocytes (%) (Auto) 5.9 % Neutrophils # (Auto) 7.2 10^3/uL Lymphocytes # (Auto) 0.58 10^3/uL1 Monocytes # (Auto) 0.5 10^3/uL Absolute Immature Granulocyte (auto 0.13 10^3 u/L Absolute Eosinophils (auto) 0.3 10^3/uL Immature Granulocytes % 1.50 % Eosinophils % 3.0 % Basophils % 0.1 % Basophils # 0.0 10^3/uL Sodium Level 140 mmol/L Potassium Level 3.8 mmol/L Chloride Level 103.0 mmol/L Carbon Dioxide Level 34.8 mmol/L Anion Gap 6.0 Blood Urea Nitrogen 20 mg/dL Creatinine 0.72 mg/dL Estimated GFR () 133.0 Est GFR (CKD-EPI)(Non-Afr [place]ian) 109.9 BUN/Creatinine Ratio 27.0 Glucose Level 203 mg/dL Calcium Level 7.6 mg/dL Phosphorus Level 2.9 mg/dL Magnesium Level 2.1 mg/dL Total Bilirubin 0.9 mg/dL Aspartate Amino Transf (AST/SGOT) 30 U/L Alanine Aminotransferase (ALT/SGPT) 32 U/L Alkaline Phosphatase 125 U/L Total Protein 4.8 g/dL Albumin 1.4 g/dL Globulin 3.4 Albumin/Globulin Ratio 0.411 Segmented Neutrophils 82 % Lymphocytes 4 % Monocytes 10 % Absolute Eosinophils (Manual) 4 % Platelet Estimate SLIGHTLY DECREASED Platelet Morphology NORMAL Bedside Glucose 157 Blood Gas Sample Site SALOMÓN Blood Gas pH 7.410 Blood Gas PCO2 48.0 mmHg Blood Gas PO2 66.2 mmHg Blood Gas HCO3 29.7 mmol/L Blood Gas Base Excess 4.3 mmol/L Abdi Test N/A Arterial Blood Oxygen Saturation 92.9 % Deoxyhemoglobin 7.1 % Carboxyhemoglobin 0.3 % Methemoglobin 0.3 % Total Hemoglobin 12.0 % Total Oxygen Concentration 15.6 % Blood Gas Temperature 37 Oxygen Delivery Method (LAB) VENT Blood Gas Vent Mode ACVC Blood Gas Vent Rate 26 FiO2 70 % Blood Gas Tidal Volume 400 ML Blood Gas PEEP 10 CMH2O Total Carbon Dioxide 31.2 mmol/L Test 09/22/20 12:27 09/22/20 17:10 09/22/20 20:34 09/23/20 00:00 Bedside Glucose 140 200 157 175 Test 09/23/20 04:30 09/23/20 04:40 09/23/20 06:27 09/23/20 07:25 Urine Collection Type VOID Urine Color YELLOW Urine Appearance CLEAR Urine Bilirubin NEGATIVE MG/DL Urine Ketones NEGATIVE Urine Specific [place] 1.015 Urine pH 8.5 Urine Protein 30 mg/dL Urine Urobilinogen >=8.0 Urine Nitrate NEGATIVE Urine Leukocyte Esterase NEGATIVE Urine Blood TRACE Urine RBC 2-5 RBC/HPF Urine WBC 0-2 WBC/HPF Urine Bacteria RARE Urine Glucose NEGATIVE White Blood Count 10.6 10^3/uL Red Blood Count 3.49 10^6/uL Hemoglobin 10.1 g/dL Hematocrit 31.5 % Mean Corpuscular Volume 90.3 fL Mean Corpuscular Hemoglobin 28.9 pg Mean Corpuscular Hemoglobin Concent 32.1 g/dL Red Cell Distribution Width 13.3 % Platelet Count 132 10^3/uL Mean Platelet Volume 10.5 fL Neutrophils (%) (Auto) 81.1 % Lymphocytes (%) (Auto) 7.6 % Monocytes (%) (Auto) 5.9 % Neutrophils # (Auto) 8.6 10^3/uL Lymphocytes # (Auto) 0.80 10^3/uL1 Monocytes # (Auto) 0.6 10^3/uL Absolute Immature Granulocyte (auto 0.21 10^3 u/L Absolute Eosinophils (auto) 0.4 10^3/uL Immature Granulocytes % 2.00 % Eosinophils % 3.3 % Basophils % 0.1 % Basophils # 0.0 10^3/uL Sodium Level 141 mmol/L Potassium Level 3.9 mmol/L Chloride Level 100.0 mmol/L Carbon Dioxide Level 38.3 mmol/L Anion Gap 6.6 Blood Urea Nitrogen 18 mg/dL Creatinine 0.84 mg/dL Estimated GFR () 111.3 Est GFR (CKD-EPI)(Non-Afr [place]ian) 92.0 BUN/Creatinine Ratio 21.0 Glucose Level 130 mg/dL Calcium Level 8.2 mg/dL Phosphorus Level 2.8 mg/dL Magnesium Level 2.3 mg/dL Total Bilirubin 0.7 mg/dL Aspartate Amino Transf (AST/SGOT) 32 U/L Alanine Aminotransferase (ALT/SGPT) 33 U/L Alkaline Phosphatase 134 U/L Total Protein 5.8 g/dL Albumin 2.5 g/dL Globulin 3.3 Albumin/Globulin Ratio 0.757 Bedside Glucose 154 Blood Gas Sample Site SALOMÓN Blood Gas pH 7.421 Blood Gas PCO2 57.2 mmHg Blood Gas PO2 71.7 mmHg Blood Gas HCO3 36.4 mmol/L Blood Gas Base Excess 9.8 mmol/L Abdi Test N/A Arterial Blood Oxygen Saturation 93.6 % Deoxyhemoglobin 6.3 % Carboxyhemoglobin 0.9 % Methemoglobin 0.4 % Total Hemoglobin 13.8 % Total Oxygen Concentration 17.9 % Blood Gas Temperature 37 Oxygen Delivery Method (LAB) VENT Blood Gas Vent Mode ACVC+ Blood Gas Vent Rate 26 FiO2 70 % Blood Gas Tidal Volume 400 ML Blood Gas PEEP 10 CMH2O Total Carbon Dioxide 38.1 mmol/L Test 09/23/20 10:02 Bedside Glucose 88 Assessment/Plan Assessment/Plan Assessment/Plan A 64 y.o. male w/ PMHx significant for HTN, HLD, DM II, who was admitted on Sep 03 for Acute Hypoxemic respiratory failure. Initially, his COVID testing returned negative and his hypoxemia was thought to be 2/2 another etiology. However, after no etiology could be elucidated, a COVID PCR was repeated and returned positive. He was then started on treatment for COVID-19 with Azithromycin, steroids, Remdesivir, CCP, and Zinc/Vitamin C. Despite treatment, his respiratory status slowly declined and he was intubated on Sep 10. At this time, he is stable on current sedation and intermittently requiring pressors pressors. However, ABG obtained this AM shows a P/F ratio of < 100. He was started on proning protocol on Sep 18, 16h prone and 8h supine. This was held starting the evening of Sep 21 due to periorbital edema and chemosis, which resolved spontaneously. He fevered again to 101F on Sep 23 and had repeat Blood, urine, and sputum cultures drawn. Will await results to start abx. COVID PNEUMONIA SEVERE ARDS ACUTE HYPOXEMIC RESPIRATORY FAILURE SEPTIC SHOCK - Telemed [employer] following; appreciate assistance with vent and medical management - Completed 5 days of Remdesivir - Completed 5 days of Azithromycin - Pt was started on Dexamethasone initially for treatment of COVID; he was transitioned to Methylprednisolone at some point, which was discontinued on Sep 17. - Pt has completed 5 days of Rocephin for CAP PNA today; will discontinue - Duonebs q4h scheduled - Given P/F ratio, will start proning. 16h prone, 8h supine. holding proning due to periorbital edema and chemosis - continue sedation with RASS goal of < - 2 - Vecuronium pushes for paralysis - Pt meets criteria for septic shock given +SIRS, infection, and hypotension requiring pressors - goal fluid balance should be negative to keep Pt as dry as possible - follow repeat Blood/urine/sputum cultures ESSENTIAL HYPERTENSION - stable with pressors - holding home antihypertensives for now T2DM - blood sugars very labile - Currently on SQ Lantus 20 BID, with Humalog SSI#2 - enteral feeding ongoing STAGE I ZOEY, resolved - likely pre-renal given hypotension and septic shock requiring pressors - continue to monitor Cr closely; currently on the downtrend - avoid further hypotension Keep MAP > 60 - avoid nephrotoxins where possible - monitor UOP; - Keep pt as dry as possible while maintaining UOP/renal function Hypoalbuminemia, improved - albumin very low at 1.2 [09/21]; improved to 1.4 with 25% Albumin - Gave 25% Albumin q8h x3 Sep 22. Albumin improved to 2.5 - monitor Periorbital Edema Chemosis - likely 2/2 low albumin and proning - holding proning tonight and giving albumin - improved significantly; continue to monitor Feeding - GLUCERNA 1.5CAL Analgesia - fentanyl gtt Sedation - Propofol VTE ppx - lovenox Head of bed - 30 degrees GI ppx - protonix Spontaneous breathing trial - not ready Bowels care - having regular BMs UOP - Crawford in place Time Spent: > 35 minutes spent in chart review, patient evaluation, coordination of care, and documentation, including 30 min of critical care time BAMBI KAUR DO Sep 23, 2020 10:30
[2020-09-23] MEDS: NS IV SCH ×2 (14:06→21:07)
[2020-09-23] MEDS: TYLENOL PO PRN (14:06)
[2020-09-23] MEDS: SUBLIMAZE IV SCH ×2 (14:06→21:07)
[2020-09-23] MEDS ORDERED: LEVOPHED ONE (14:14)
[2020-09-23] MEDS ORDERED: NS 250ML 250 ML IV ONE (14:14)
[2020-09-23] MEDS: LEVOPHED 8 MG in NS 250ML 250 ML IV SCH (14:20)
--- NOTE | 2020-09-23 14:20 | NUR ---
Patient blood pressure 88/47 MAP 58, started levophed. will titrate to keep map above 65. Notified Dr. Craven.
--- NOTE | 2020-09-23 16:24 | DIET.OP ---
Nutrition Asmt/Malnutrit 2-17 Actual Date of Review: Sep 23, 2020 Diagnosis: Covid 19, Acute Hypoxemic Respiratory Failure Pertinent Medical Hx/Surgical: HTN, HLD, T2DM Subjective Information: telehealth f/u- pt remains intubated and sedated. Propofol at 50 mcg/kg/min providing 617 kcal. Proning held due to periorbital edema and chemosis. Current Diet Order/Nutrition S: NPO Patient /S.O: Not Indicated Pertinent Meds Current Medications Medications (Trade) Dose Ordered Sig/Adrianna Route PRN Reason Start Time Stop Time Status Last Admin Dose Admin Acetaminophen (Tylenol) 325 mg Q4H PRN PO PAIN 1 - 3 09/03/20 19:00 09/05/20 19:26 DC Morphine Sulfate (Morphine Sulfate) 2 mg Q4H PRN IV PAIN 4 - 6 09/03/20 19:00 09/04/20 19:28 DC Insulin Human Lispro (Humalog) 0-140 0 Units 141-200... ACHS SQ 09/03/20 21:00 09/13/20 19:43 DC 09/13/20 17:28 Dextrose 1,000 ml @ 100 mls/hr Q10H PRN IV HYPOGLYCEMIA 09/03/20 19:00 09/22/20 10:02 DC Dextrose (Dextrose 50%-Water Syringe) 25 ml STAT PRN IV HYPOGLYCEMIA 09/03/20 19:00 10/03/20 18:59 Glucagon (Glucagen) 1 mg STAT STAT IV 09/03/20 18:44 09/03/20 18:56 DC Heparin Sodium (Porcine) (Heparin) 5,000 unit Q8HR SQ 09/03/20 22:00 09/04/20 20:10 DC 09/04/20 14:00 Lisinopril (Zestril) 20 mg BID PO 09/03/20 21:00 09/14/20 11:07 DC 09/12/20 21:00 Azithromycin 500 mg/Sodium Chloride 250 ml @ 175 mls/hr Q24HRS IV 09/03/20 20:30 09/04/20 08:15 DC 09/03/20 21:11 Ceftriaxone Sodium 1000 mg/ Sodium Chloride 100 ml @ 100 mls/hr Q24HRS IV 09/03/20 19:30 09/04/20 08:15 DC 09/03/20 19:39 Sodium Chloride 1,000 ml @ 75 mls/hr [id number] IV 09/03/20 20:00 09/11/20 10:16 DC 09/11/20 01:20 Ceftriaxone Sodium (Rocephin) 1,000 mg STK-MED ONCE .ROUTE 09/03/20 19:35 09/03/20 19:35 DC Sodium Chloride 100 ml @ ud STK-MED ONCE IV 09/03/20 19:35 09/03/20 19:36 DC Zinc Sulfate (Zinc Sulfate) 220 mg DAILY PO 09/04/20 09:00 09/05/20 00:13 DC 09/04/20 08:22 Ascorbic Acid (Vitamin C) 500 mg BID PO 09/04/20 09:00 09/05/20 00:13 DC 09/04/20 20:22 Morphine Sulfate (Morphine Sulfate) 2 mg Q4H PRN IV PAIN 4 - 6 09/04/20 19:28 09/17/20 11:06 DC Enoxaparin Sodium (Lovenox) 75 mg BID SQ 09/04/20 20:30 09/05/20 11:39 DC 09/05/20 08:20 Azithromycin (Zithromax) 500 mg OT ONCE PO 09/05/20 00:00 09/05/20 02:22 DC 09/05/20 00:27 Ceftriaxone Sodium 2000 mg/ Sodium Chloride 100 ml @ 100 mls/hr Q24HRS IV 09/05/20 00:00 09/09/20 18:46 DC 09/08/20 23:59 Azithromycin (Zithromax) 250 mg DAILY PO 09/05/20 19:00 09/09/20 18:59 DC 09/09/20 08:31 Ceftriaxone Sodium (Rocephin) 1,000 mg STK-MED ONCE .ROUTE 09/05/20 00:25 09/05/20 00:26 DC Sodium Chloride 100 ml @ ud STK-MED ONCE IV 09/05/20 00:26 09/05/20 00:26 DC Enoxaparin Sodium (Lovenox) 40 mg DAILY SQ 09/06/20 09:00 09/09/20 18:47 DC 09/09/20 08:31 Ascorbic Acid (Vitamin C) 1,000 mg BID PO 09/05/20 21:00 10/05/20 20:59 09/23/20 09:00 Zinc Sulfate (Zinc Sulfate) 220 mg BID PO 09/05/20 21:00 10/05/20 20:59 09/23/20 09:00 Albuterol Sulfate (Ventolin Hfa) 2 inh RTQ4 IH 09/05/20 13:00 09/20/20 10:05 DC 09/20/20 08:30 Acetaminophen (Tylenol) 1,000 mg Q6H PRN PO PAIN 1 - 3 09/05/20 12:00 10/05/20 11:59 09/23/20 14:06 Enoxaparin Sodium (Lovenox) 40 mg STK-MED ONCE SQ 09/06/20 07:12 09/06/20 07:12 DC Remdesivir 200 mg/ Sodium Chloride 140 ml @ 120.69 mls/ hr OT STAT IV 09/07/20 18:45 09/07/20 19:54 DC 09/07/20 19:10 Remdesivir 100 mg/ Sodium Chloride 120 ml @ 111.111 mls/hr Q24HRS IV 09/08/20 19:00 09/13/20 07:12 DC 09/12/20 19:00 Potassium Chloride (Klor-Con 10) 40 meq OT PO 09/08/20 13:00 09/11/20 15:50 DC 09/09/20 04:56 Metoprolol Tartrate (Lopresser) 10 mg STAT STAT IVP 09/09/20 11:00 09/09/20 11:04 DC 09/09/20 11:34 Metoprolol Tartrate (Lopresser) 25 mg BID PO 09/09/20 21:00 09/14/20 11:02 DC 09/12/20 21:00 Enoxaparin Sodium (Lovenox) 80 mg BID SQ 09/09/20 19:00 09/11/20 15:51 DC 09/11/20 09:00 Sodium Chloride 250 ml @ ud STK-MED ONCE IV 09/10/20 12:50 09/10/20 12:51 DC Enoxaparin Sodium (Lovenox) 80 mg STK-MED ONCE SQ 09/10/20 21:17 09/10/20 21:17 DC Lorazepam (Ativan) 1 mg Q4HR PRN IV ANXIETY 09/11/20 00:30 09/18/20 08:58 DC 09/13/20 04:00 Enoxaparin Sodium (Lovenox) 80 mg BID SQ 09/11/20 21:00 09/13/20 15:41 DC 09/12/20 21:00 Methylprednisolone Acetate (Depo-Medrol) 40 mg Q8HR IM 09/11/20 22:00 09/11/20 18:19 DC Quetiapine Fumarate (Seroquel) 25 mg BID PO 09/12/20 21:00 09/13/20 15:41 DC 09/12/20 21:00 Quetiapine Fumarate (Seroquel) 25 mg BID PO 09/13/20 03:00 09/13/20 04:46 DC Dexmedetomidine HCl 400 mcg/ Sodium Chloride 100 ml @ 0 mls/hr IV 09/13/20 05:00 10/13/20 04:59 09/14/20 09:26 Sodium Chloride 100 ml @ ud STK-MED ONCE IV 09/13/20 05:16 09/13/20 05:16 DC Hydralazine HCl (Apresoline) 5 mg STAT STAT IV 09/13/20 08:19 09/13/20 08:21 DC 09/13/20 08:30 Hydralazine HCl (Apresoline) 5 mg STAT STAT IV 09/13/20 09:43 09/13/20 10:03 DC 09/13/20 09:43 Sterile Water (Water) 1,000 ml STK-MED ONCE .ROUTE 09/13/20 11:31 09/13/20 11:31 DC Sodium Chloride 1,000 ml @ ud STK-MED ONCE .ROUTE 09/13/20 11:31 09/13/20 11:31 DC Propofol 100 ml @ ud STK-MED ONCE IV 09/13/20 11:46 09/13/20 11:47 DC Propofol (Diprivan) 1,000 mg STAT IV 09/13/20 13:00 10/13/20 12:59 09/23/20 09:26 Sodium Chloride 1,000 ml @ 0 mls/hr Q0M ONCE IV 09/13/20 11:45 09/13/20 13:21 DC 09/13/20 11:45 Fentanyl Citrate 2000 mcg/Sodium Chloride 200 ml @ 7.4 mls/hr IV 09/13/20 16:00 09/13/20 19:50 DC 09/13/20 16:17 Methylprednisolone Sodium Succinate (Solu-Medrol) 40 mg Q8HR IV 09/13/20 22:00 09/17/20 07:00 DC 09/17/20 06:00 Succinylcholine Chloride (Quelicin) 100 mg STK-MED ONCE IV 09/13/20 11:58 09/13/20 18:48 DC Propofol (Diprivan) 150 mg STK-MED ONCE IV 09/13/20 11:58 09/13/20 18:48 DC Furosemide (Lasix) 20 mg STAT STAT IV 09/13/20 19:07 09/13/20 19:47 DC 09/13/20 19:07 Enoxaparin Sodium (Lovenox) 70 mg BID SQ 09/13/20 21:00 10/13/20 20:59 09/23/20 09:00 Insulin Human Lispro (Humalog) 0-140 0 Units 141-200... Q6 SQ 09/14/20 00:00 10/16/22 20:59 09/23/20 12:00 Fentanyl Citrate 5000 mcg/Sodium Chloride 500 ml @ 11.4 mls/hr IV 09/13/20 20:00 10/13/20 19:59 09/23/20 14:06 Sodium Chloride 500 ml @ 500 mls/hr Q1H ONCE IV 09/13/20 21:00 09/13/20 21:59 DC 09/13/20 21:00 Sodium Chloride 500 ml @ ud STK-MED ONCE IV 09/13/20 20:34 09/13/20 20:34 DC Sodium Chloride 250 ml @ ud STK-MED ONCE IV 09/13/20 20:34 09/13/20 20:34 DC Norepinephrine Bitartrate (Levophed) 4 mg STK-MED ONCE .ROUTE 09/13/20 20:34 09/13/20 20:35 DC Norepinephrine Bitartrate 8 mg/ Sodium Chloride 250 ml @ 0 mls/hr PRN PRN IV HYPOTENSION 09/13/20 21:00 09/19/20 10:29 DC 09/18/20 13:20 Furosemide (Lasix) 40 mg STK-MED ONCE .ROUTE 09/13/20 21:19 09/13/20 21:19 DC Docusate Sodium (Colace) 100 mg BID PO 09/14/20 21:00 10/14/20 20:59 09/23/20 09:00 Ceftriaxone Sodium 1000 mg/ Sodium Chloride 100 ml @ 200 mls/hr Q24HRS IV 09/14/20 15:00 09/19/20 09:11 DC 09/18/20 15:09 Azithromycin 500 mg/Sodium Chloride 250 ml @ 175 mls/hr Q24HRS IV 09/14/20 16:00 09/17/20 15:59 DC 09/16/20 16:00 Sodium Chloride 1,000 ml @ 75 mls/hr [id number] IV 09/14/20 15:30 09/17/20 11:06 DC 09/16/20 17:28 Heparin Sodium/ Sodium Chloride 500 ml @ ud STK-MED ONCE IV 09/14/20 18:32 09/14/20 18:32 DC Vecuronium Dillon (Norcuron) 10 mg STK-MED ONCE .ROUTE 09/14/20 18:40 09/14/20 18:40 DC Sterile Water (Water) 1,000 ml STK-MED ONCE .ROUTE 09/15/20 00:38 09/15/20 00:39 DC Insulin Glargine (Lantus) 10 unit BID SQ 09/15/20 14:30 09/16/20 12:30 DC 09/16/20 08:28 Sterile Water (Water) 1,000 ml STK-MED ONCE .ROUTE 09/15/20 20:12 09/15/20 20:13 DC Vecuronium Dillon (Norcuron) 10 mg STAT ONCE IV 09/16/20 10:00 09/16/20 10:12 DC 09/16/20 11:00 Insulin Glargine (Lantus) 20 unit BID SQ 09/16/20 21:00 10/16/20 20:59 09/22/20 21:40 Pantoprazole Sodium (Protonix Iv) 40 mg DAILY IV 09/17/20 09:00 10/17/20 08:59 09/23/20 09:00 Sterile Water (Water) 1,000 ml STK-MED ONCE .ROUTE 09/16/20 16:52 09/16/20 16:53 DC Furosemide (Lasix) 20 mg STAT ONCE IV 09/17/20 08:00 09/17/20 08:17 DC 09/17/20 08:00 Quetiapine Fumarate (Seroquel) 25 mg BID PO 09/17/20 09:30 10/17/20 09:29 09/23/20 09:00 Vecuronium Dillon (Norcuron) 10 mg Q2 PRN IV AGITATION 09/17/20 11:30 09/18/20 08:53 DC 09/17/20 15:00 Furosemide (Lasix) 40 mg DAILY IV 09/17/20 11:30 10/17/20 11:29 09/23/20 09:00 Lactulose (Cephulac) 20 gm DAILY NG 09/18/20 09:00 09/18/20 08:56 DC Norepinephrine Bitartrate (Levophed) 4 mg STK-MED ONCE .ROUTE 09/17/20 16:16 09/17/20 16:17 DC Sodium Chloride 250 ml @ ud STK-MED ONCE IV 09/17/20 16:16 09/17/20 16:17 DC Sterile Water (Water) 1,000 ml STK-MED ONCE .ROUTE 09/17/20 18:20 09/17/20 18:21 DC Sodium Chloride 100 ml @ ud STK-MED ONCE IV 09/17/20 22:27 09/17/20 22:28 DC Fentanyl Citrate (Sublimaze) 50 mcg STK-MED ONCE .ROUTE 09/17/20 22:28 09/17/20 22:29 DC Vecuronium Dillon (Norcuron) 10 mg Q2 IV 09/18/20 09:00 09/20/20 10:04 DC 09/20/20 08:00 Lactulose (Cephulac) 20 gm DAILY NG 09/18/20 09:00 10/18/20 08:59 09/23/20 09:00 Vecuronium Dillon (Norcuron) 5 mg Q1HR PRN IV Additional Paralysis 09/18/20 09:00 10/18/20 08:59 09/21/20 17:19 Sterile Water (Water) 1,000 ml STK-MED ONCE .ROUTE 09/18/20 09:55 09/18/20 09:55 DC Heparin Sodium/ Dextrose 500 ml @ ud STK-MED ONCE IV 09/18/20 13:59 09/18/20 13:59 DC Cefepime HCl 2 gm/ Sodium Chloride 100 ml @ 100 mls/hr Q8H IV 09/19/20 09:00 09/20/20 10:04 DC 09/20/20 09:00 Norepinephrine Bitartrate 8 mg/ Sodium Chloride 250 ml @ 0 mls/hr TITRATE ONCE IV 09/19/20 11:00 09/19/20 11:01 DC 09/19/20 10:30 Norepinephrine Bitartrate 8 mg/ Sodium Chloride 250 ml @ 0 mls/hr TITRATE IV 09/19/20 12:00 10/19/20 11:59 09/23/20 14:20 Sterile Water (Water) 1,000 ml STK-MED ONCE .ROUTE 09/20/20 08:08 09/20/20 08:09 DC Vecuronium Dillon (Norcuron) 10 mg Q3H PRN IV vent/dsynchonry hypoxia 09/20/20 10:30 10/20/20 10:29 09/22/20 20:25 Midazolam HCl (Versed) 2 mg Q2H PRN IV SEDATION 09/20/20 10:30 10/20/20 10:29 UNV Albuterol Sulfate (Ventolin Hfa) 2 inh PRN PRN IH wheezing 09/20/20 10:30 10/20/20 10:29 09/22/20 08:30 Vasopressin 20 unit/Sodium Chloride 100 ml @ 0 mls/hr PRN ONCE IV 09/20/20 17:00 09/20/20 17:01 DC Furosemide (Lasix) 60 mg OT ONCE IV 09/21/20 15:00 09/21/20 15:13 DC Albumin Human (Buminate 25%) 100 ml OT ONCE IV 09/21/20 15:00 09/21/20 15:13 DC 09/21/20 15:00 Sterile Water (Water) 1,000 ml STK-MED ONCE .ROUTE 09/21/20 15:26 09/21/20 15:26 DC Albumin Human (Buminate 25%) 100 ml Q8H IV 09/22/20 10:00 09/23/20 09:59 DC 09/23/20 02:00 Sterile Water (Water) 1,000 ml STK-MED ONCE .ROUTE 09/22/20 17:13 09/22/20 17:14 DC Acetaminophen (Ofirmev) 1,000 mg Q8H PRN IV see dose instructions 09/23/20 04:30 10/23/20 04:29 09/23/20 04:30 Sodium Chloride 250 ml @ ud STK-MED ONCE IV 09/23/20 14:14 09/23/20 14:14 DC Norepinephrine Bitartrate (Levophed) 4 mg STK-MED ONCE .ROUTE 09/23/20 14:14 09/23/20 14:14 DC Pertinent Labs Laboratory Tests Test 09/21/20 17:17 09/21/20 21:14 09/22/20 00:35 09/22/20 03:56 Bedside Glucose 186 137 149 White Blood Count 8.7 10^3/uL Red Blood Count 3.46 10^6/uL Hemoglobin 10.1 g/dL Hematocrit 31.0 % Mean Corpuscular Volume 89.6 fL Mean Corpuscular Hemoglobin 29.2 pg Mean Corpuscular Hemoglobin Concent 32.6 g/dL Red Cell Distribution Width 13.4 % Platelet Count 116 10^3/uL Mean Platelet Volume 10.7 fL Neutrophils (%) (Auto) 82.9 % Lymphocytes (%) (Auto) 6.6 % Monocytes (%) (Auto) 5.9 % Neutrophils # (Auto) 7.2 10^3/uL Lymphocytes # (Auto) 0.58 10^3/uL1 Monocytes # (Auto) 0.5 10^3/uL Absolute Immature Granulocyte (auto 0.13 10^3 u/L Absolute Eosinophils (auto) 0.3 10^3/uL Immature Granulocytes % 1.50 % Eosinophils % 3.0 % Basophils % 0.1 % Basophils # 0.0 10^3/uL Sodium Level 140 mmol/L Potassium Level 3.8 mmol/L Chloride Level 103.0 mmol/L Carbon Dioxide Level 34.8 mmol/L Anion Gap 6.0 Blood Urea Nitrogen 20 mg/dL Creatinine 0.72 mg/dL Estimated GFR () 133.0 Est GFR (CKD-EPI)(Non-Afr [place]) 109.9 BUN/Creatinine Ratio 27.0 Glucose Level 203 mg/dL Calcium Level 7.6 mg/dL Phosphorus Level 2.9 mg/dL Magnesium Level 2.1 mg/dL Total Bilirubin 0.9 mg/dL Aspartate Amino Transf (AST/SGOT) 30 U/L Alanine Aminotransferase (ALT/SGPT) 32 U/L Alkaline Phosphatase 125 U/L Total Protein 4.8 g/dL Albumin 1.4 g/dL Globulin 3.4 Albumin/Globulin Ratio 0.411 Test 09/22/20 04:21 09/22/20 05:36 09/22/20 07:42 09/22/20 12:27 Segmented Neutrophils 82 % Lymphocytes 4 % Monocytes 10 % Absolute Eosinophils (Manual) 4 % Platelet Estimate SLIGHTLY DECREASED Platelet Morphology NORMAL Bedside Glucose 157 140 Blood Gas Sample Site [place] Blood Gas pH 7.410 Blood Gas PCO2 48.0 mmHg Blood Gas PO2 66.2 mmHg Blood Gas HCO3 29.7 mmol/L Blood Gas Base Excess 4.3 mmol/L Abdi Test N/A Arterial Blood Oxygen Saturation 92.9 % Deoxyhemoglobin 7.1 % Carboxyhemoglobin 0.3 % Methemoglobin 0.3 % Total Hemoglobin 12.0 % Total Oxygen Concentration 15.6 % Blood Gas Temperature 37 Oxygen Delivery Method (LAB) VENT Blood Gas Vent Mode ACVC Blood Gas Vent Rate 26 FiO2 70 % Blood Gas Tidal Volume 400 ML Blood Gas PEEP 10 CMH2O Total Carbon Dioxide 31.2 mmol/L Test 09/22/20 17:10 09/22/20 20:34 09/23/20 00:00 09/23/20 04:30 Bedside Glucose 200 157 175 Urine Collection Type VOID Urine Color YELLOW Urine Appearance CLEAR Urine Bilirubin NEGATIVE MG/DL Urine Ketones NEGATIVE Urine Specific [place] 1.015 Urine pH 8.5 Urine Protein 30 mg/dL Urine Urobilinogen >=8.0 Urine Nitrate NEGATIVE Urine Leukocyte Esterase NEGATIVE Urine Blood TRACE Urine RBC 2-5 RBC/HPF Urine WBC 0-2 WBC/HPF Urine Bacteria RARE Urine Glucose NEGATIVE Test 09/23/20 04:40 09/23/20 06:27 09/23/20 07:25 09/23/20 10:02 White Blood Count 10.6 10^3/uL Red Blood Count 3.49 10^6/uL Hemoglobin 10.1 g/dL Hematocrit 31.5 % Mean Corpuscular Volume 90.3 fL Mean Corpuscular Hemoglobin 28.9 pg Mean Corpuscular Hemoglobin Concent 32.1 g/dL Red Cell Distribution Width 13.3 % Platelet Count 132 10^3/uL Mean Platelet Volume 10.5 fL Neutrophils (%) (Auto) 81.1 % Lymphocytes (%) (Auto) 7.6 % Monocytes (%) (Auto) 5.9 % Neutrophils # (Auto) 8.6 10^3/uL Lymphocytes # (Auto) 0.80 10^3/uL1 Monocytes # (Auto) 0.6 10^3/uL Absolute Immature Granulocyte (auto 0.21 10^3 u/L Absolute Eosinophils (auto) 0.4 10^3/uL Immature Granulocytes % 2.00 % Eosinophils % 3.3 % Basophils % 0.1 % Basophils # 0.0 10^3/uL Sodium Level 141 mmol/L Potassium Level 3.9 mmol/L Chloride Level 100.0 mmol/L Carbon Dioxide Level 38.3 mmol/L Anion Gap 6.6 Blood Urea Nitrogen 18 mg/dL Creatinine 0.84 mg/dL Estimated GFR () 111.3 Est GFR (CKD-EPI)(Non-Afr [place]) 92.0 BUN/Creatinine Ratio 21.0 Glucose Level 130 mg/dL Calcium Level 8.2 mg/dL Phosphorus Level 2.8 mg/dL Magnesium Level 2.3 mg/dL Total Bilirubin 0.7 mg/dL Aspartate Amino Transf (AST/SGOT) 32 U/L Alanine Aminotransferase (ALT/SGPT) 33 U/L Alkaline Phosphatase 134 U/L Total Protein 5.8 g/dL Albumin 2.5 g/dL Globulin 3.3 Albumin/Globulin Ratio 0.757 Bedside Glucose 154 88 Blood Gas Sample Site [place] Blood Gas pH 7.421 Blood Gas PCO2 57.2 mmHg Blood Gas PO2 71.7 mmHg Blood Gas HCO3 36.4 mmol/L Blood Gas Base Excess 9.8 mmol/L Abdi Test N/A Arterial Blood Oxygen Saturation 93.6 % Deoxyhemoglobin 6.3 % Carboxyhemoglobin 0.9 % Methemoglobin 0.4 % Total Hemoglobin 13.8 % Total Oxygen Concentration 17.9 % Blood Gas Temperature 37 Oxygen Delivery Method (LAB) VENT Blood Gas Vent Mode ACVC+ Blood Gas Vent Rate 26 FiO2 70 % Blood Gas Tidal Volume 400 ML Blood Gas PEEP 10 CMH2O Total Carbon Dioxide 38.1 mmol/L Test 09/23/20 13:30 Bedside Glucose 166 Height (Feet): 5 Height (Inches): 6 Current Weight: 171 %IBW: 132 Recent Weight Change: Yes (down 16# from last assessment) Weight Status: Overweight GI Symptoms: Last BM (regular BMs per MD note) Food Allergies: No Cultural/Ethnic/[place] [place]: none identified BEE in Kcals: Use Current Weight Calories/Kcals/Kg: [address] 2002 (09/20) Kcals Calculated: 1817 kcal Protein: Use Current Weight Protein g/k.8-1 g/kg Protein Calculated: 60-75g Fluid: ml: 1292-9455 ml or 1 ml/kcal Nutritional Problem: Nutr. Problems Present Problems: Inadequate energy intake Etiology: TF held while proned Signs/Symptoms: TF not meeting nutrition needs. RD Comments: If pt is being proned: 1. Recommend Glucerna 1.5 210cc Q2hr while pt is supine for a goal of 4-bolus pushes of 210cc during the 8 hr period that he is supine. This will provide 1260 kcal, 69 g pro, 112 g CHO, and 63 g fat which will meet 100% of his nutrition needs in combination with calories from propofol. 2. Recommend 160cc water flushes Q4 hrs regardless of position. If MD would prefer no water flushes when prone then recommend maintaining hydration with IV fluids as needed. If pt is not being proned: 1. Recommend Glucerna 1.5 135cc Q4h with 155cc water flush Q4. This will provide 1215 kcal, 67 g pro, 108 g CHO, 61 g fat, and 1545 ml of water to meet 100% of the pts nutrition needs in combination with calories from propofol. Monitor K, Mg, and PO4 before and during EN initiation. Monitor BG Q4hr and correct as indicated. RD to monitor TF tolerance, weight, labs, care plan, and vent and sedation setting. Will update recommendations accordingly. Expected Outcomes TF meeting 100% of pts needs the next 2 days and tolerated well. Discharge goal is pending. Malnutrtion/Nutrition Risk Edu: No MD Notificiation Needed?: No Jessica Morris Sep 23, 2020 16:24
--- NOTE | 2020-09-23 18:14 | TELE.CONS ---
Review of Systems Allergies: Coded Allergies: No Known Allergies (Unverified , 09/03/20) Scheduled Lisinopril (Lisinopril), 1 TAB PO BID, (Reported) Metformin Hcl (Metformin Hcl), 1,000 MG PO BID, (Reported) VITALS REVIEW VITALS Vital Sign - Last 24 Hours 09/23/20 09/23/20 09/23/20 09/23/20 07:00 07:00 07:15 07:30 Temp 99.3 99.3 99.1 Pulse 89 89 88 88 Resp B/P (MAP) 117/58 (77) 117/58 (77) 126/56 (79) 130/57 (81) 130/57 (81) Pulse Ox 97 97 97 97 FiO2 70 09/23/20 09/23/20 09/23/20 09/23/20 07:30 07:30 07:30 07:45 Temp 99.1 99.0 Pulse 88 87 Resp B/P (MAP) 112/54 (73) 123/57 (79) 123/57 (79) Pulse Ox 97 97 O2 Delivery Mechanical Ventilator Mechanical Ventilator FiO2 70 09/23/20 09/23/20 09/23/20 09/23/20 08:00 08:00 08:06 08:11 Temp 99.0 Pulse 83 103 84 84 Resp B/P (MAP) 119/58 (78) 128/58 (81) Pulse Ox 97 99 97 97 O2 Delivery Mechanical Ventilator FiO2 70 70 70 09/23/20 09/23/20 09/23/20 09/23/20 08:15 08:30 08:45 09:00 Temp 99.0 98.8 98.8 Pulse 83 81 83 Resp B/P (MAP) 129/60 (83) 117/58 (77) 131/61 (84) 135/60 130/60 (83) Pulse Ox 97 97 97 09/23/20 09/23/20 09/23/20 09/23/20 09:00 09:15 09:30 09:45 Temp 98.8 98.8 98.8 98.6 Pulse 80 82 84 88 Resp B/P (MAP) 120/56 (77) 127/59 (81) 124/60 (81) 128/58 (81) 122/58 (79) 133/61 (85) Pulse Ox 97 97 97 98 09/23/20 09/23/20 09/23/20 09/23/20 10:00 10:07 10:15 10:30 Temp 98.8 99.0 99.0 99.1 Pulse 98 100 100 96 Resp B/P (MAP) 141/61 (87) 141/61 (87) 141/58 (85) 112/56 (74) 155/61 (92) 166/63 (97) 133/58 (83) Pulse Ox 96 95 95 95 09/23/20 09/23/20 09/23/20 09/23/20 10:30 10:45 11:00 11:15 Temp 99.1 99.1 99.1 Pulse 93 93 94 93 Resp B/P (MAP) 123/56 (78) 100/53 (69) 123/57 (79) 122/56 (78) Pulse Ox 97 95 96 97 FiO2 70 09/23/20 09/23/20 09/23/20 09/23/20 11:30 11:45 11:45 12:00 Temp 99.3 99.3 99.1 Pulse 93 92 92 Resp B/P (MAP) 114/55 (74) 114/55 (74) 118/54 (75) 117/55 (75) 127/58 (81) Pulse Ox 97 98 98 O2 Delivery Mechanical Ventilator 09/23/20 09/23/20 09/23/20 09/23/20 12:00 12:00 12:00 12:15 Temp 99.3 Pulse 92 103 95 Resp 20 B/P (MAP) 131/57 (81) Pulse Ox 99 99 98 O2 Delivery Mechanical Ventilator FiO2 70 70 70 09/23/20 09/23/20 09/23/20 09/23/20 12:30 12:45 13:00 13:15 Temp 99.3 99.3 99.5 99.7 Pulse 93 94 96 96 Resp B/P (MAP) 114/60 (78) 136/57 (83) 118/60 (79) 130/57 (81) 138/59 (85) 143/59 (87) Pulse Ox 98 98 97 97 09/23/20 09/23/20 09/23/20/24/21 13:30 13:45 14:00 14:12 Temp 99.7 99.7 99.7 99.7 Pulse 95 92 92 92 Resp B/P (MAP) 113/54 (73) 121/56 (77) 110/58 (75) 99/48 (65) 133/58 (83) 106/49 (68) 87/43 (58) Pulse Ox 98 98 100 99 09/23/20 09/23/20 09/23/20 09/23/20 14:15 14:18 14:22 14:30 Temp 99.7 99.7 99.5 Pulse 93 93 86 82 Resp B/P (MAP) 84/44 (57) 93/49 (64) 114/52 (72) 82/43 (56) Pulse Ox 100 100 100 100 FiO2 70 09/23/20 09/23/20 09/23/20 09/23/20 16:00 16:00 16:00 16:00 Pulse 77 103 Resp Pulse Ox 100 99 O2 Delivery Mechanical Ventilator Mechanical Ventilator FiO2 70 70 70 09/23/20 17:33 Pulse 76 Resp 26 Pulse Ox 99 FiO2 70 Intake and Output 09/23/20 06:00 Intake Total 2567.12 ml Output Total 4750 ml Balance -2182.88 ml VTE VTE Risk Total Score: 2 VTE Risk Score VTE Risk: Score 0-1 = Low Risk (Aggressive mobilization; early ambulation; no VTE prophylaxis required) Score 2: Moderate Risk (Intermittent/Pneumatic Compression Device OR Lovenox/Heparin/Coumadin) Score 3-4: High Risk (Intermittent/Pneumatic Compression Device AND Lovenox/Heparin/Coumadin) Score > or =5: Highest Risk (Intermittent/Pneumatic Compression Device AND Lovenox/Heparin/Coumadin) Antico:Hep/LMWH/Coum/Xarelto: Yes VTE VTE Present on Admission: No Currently receiving anticoagul: No VTE Risk Total Score: 2 Antico:Hep/LMWH/Coum/Xarelto: Yes Assessment/Plan Assessment/Plan Assessment/Plan #1 Neuro: The pt is intubated and sedated on prop and fentanyl. The pt is getting PRN vecuronium #2 CV: THe pt has been normotensive but will prn need levo to keep MAP >65. #3 Pulm: The pt is tx with remdesivir lovenox and decadron. VEnt settings of 70% on 10 PEEP. Proning as feasible, held for periorbital edema and chemosis #4 GI: Enteral feedings #5 Renal: Monitor for renal failure, replete lytes, lasix PRN #6 ID: [id number] + #7 Endo: keep FS 150-180 #8 Heme: Tx plats >10k hgb >7 #9 PPx: lovenox and PPI I discussed pt with BACK SEAM STITCHER and completed the video assessment with assistance from the BACK SEAM STITCHER. I spent a total of greater than 60 minutes formulating critical care for this patient today. I saw this patient and completed a full visual exam via audio-visual HIPAA compliant technology. Plan as above JEFFY ESPINOZA MD Sep 23, 2020 18:14
--- NOTE | 2020-09-23 19:00 | NUR ---
Report received from Gonzalo [employer]. Assumed care of pt. Fentanyl infusion at 4 mcgs/kg/hour =25 ml/hour, propofol infusion at 40 mcgs/kg/min = 18.73 ml/hour. Pt stable on vent. No overbreathing vent or asynchronous breathing at this time. Pt gets anxious with increased HR and BP when RN speaking to pt in Salvadorean. RN explained plan of care and ventilator. Pt Unable to comprehend due to intubated and sedated on vent. pt moves left foot sublely. Afebrile at present. Oral care with oral & ETT suctioning done at this time. BP low but MAP > 65. Will monitor closely. Arterial line correlating with cuff BP at present.
--- NOTE | 2020-09-23 22:00 | NUR ---
Pt's daughter Shoemy called and updated on pt's current status which is stable. Aware pt is off levophed this afternoon. BP stable at this time
--- NOTE | 2020-09-23 23:45 | NUR ---
Fentanyl infusion decreased from 4 mcgs/kg/hour to 3 mcgs/kg/hour = 18.75 ml/hour, propofol infusion increased from 45 mcgs/kg/min = 21.09 ml/hour to 50 mcgs/kg/min = 23.03 ml/hour.
[2020-09-24] VITALS (92 sets, daily range): BP systolic 98–192; BP diastolic 45–96
--- NOTE | 2020-09-24 02:45 | NUR ---
0230-AM bath and linens changed. Mepilex changed on coccyx. No skin breakdown noted. Pt has hemorrhoids. Not bleeding at this time. Pt anxious and agitated with bath with increased respiratory rate above vent setting of 26 and increased BP and HR to 100 from low 80s. RN reassured pt speaking German. RN competed bath then HR decreased back to 81-84 and BP came down from 160s to 130s within a few minutes.
[2020-09-24] MEDS: DIPRIVAN IV SCH ×2 (04:01→18:31)
[2020-09-24 04:20] LABS: BASOPHIL % 0.4 % (0.0-0.2); EOSINOPHIL # 0.4 10^3/uL (0.0-0.2); EOSINOPHIL % 5.2 % (0.0-5.0); LYMPHOCYTES # 1.16 10^3/uL1 (1.0-4.8); MEAN CORP HGB 29.4 pg (26-34); MONOCYTES # 0.5 10^3/uL (0.3-0.8); MONOCYTES % 5.7 % (5.0-12.0); NEUTROPHIL # 5.9 10^3/uL (1.8-7.7); PLATELET COUNT 145 10^3/uL (150-400); RED CELL DISTRIBUTION WIDTH 13.6 % (11.5-14.5)
[2020-09-24] MEDS: OFIRMEV IV PRN (04:20)
--- NOTE | 2020-09-24 04:50 | NUR ---
Procalcitonin level 0.83. Abel lopez MD
[2020-09-24 04:54] LABS: CALCIUM 8.2 mg/dL (8.4-10.5); CARBON DIOXIDE 38.9 mmol/L (20.0-32)
--- NOTE | 2020-09-24 05:00 | NUR ---
new daily wt is 77.8 kg. Adjusted infusions based on new wt. Fentanyl infusion at 3 mcgs/kg/hour = 18.75 ml/hour adn decreased slightly to 18.67 ml/hour, propofol infusion adjusted from 23.43 ml/hour to 23.34 ml/hour at 50 mcgs/kg/min continued. Temp 99.3-99.5 F rectally after Ofirmev given.
--- NOTE | 2020-09-24 05:17 | NUR ---
Call from lab. D-Dimer result 5.22. Elevated. Will notify
--- NOTE | 2020-09-24 05:36 | NUR ---
Sputum C & S specimen collected per JANNETH Lucas and sent to lab.
--- NOTE | 2020-09-24 05:38 | NUR ---
Procalcitonin 0.83 and D-Dimer 5.22 abnormal results called to Dr[address] Matias. No new orders at this time.
--- NOTE | 2020-09-24 06:00 | NUR ---
cool bath given for temp of 99.3 Rectal.
[2020-09-24] MEDS: HUMALOG SQ SCH ×4 (06:20→18:00)
--- NOTE | 2020-09-24 06:55 | NUR ---
Received report from MIGUEL Rivers. Assumed patient care.
--- NOTE | 2020-09-24 06:55 | NUR ---
Report given to Genaro ORGAN FIXER. Aware of low grade temp this shift and labs called to MD. Aware K+ level 3.6 and not called to MD. Aware pt had 1 small loose BM at midnight. No changes in fentanyl and propofol infusion rates. See IV spreadsheet. Aware of 3 blood glucose check results.
--- NOTE | 2020-09-24 08:40 | DIREP ---
PROCEDURE:CHEST 1 VIEW COMPARISON:[facility], CR, XRAY CHEST SINGLE VW, 09/23/2020, 04:06 AM. INDICATIONS:COVID FINDINGS: LUNGS/PLEURA:Diffuse ground-glass and patchy consolidation along the periphery of the lungs and within the lung bases. No pneumothorax. VASCULATURE:Unremarkable pulmonary vasculature. CARDIAC:No cardiac silhouette abnormality or cardiomegaly. MEDIASTINUM:No visible mass or adenopathy. BONES:No fracture or visible bony lesion. OTHER:Endotracheal tube with the internal tip just beyond the medial clavicular border, 5 cm above the saurabh. Enteric tubing extends in the expected path of the esophagus with the internal tip below the inferior margin of the film. Right-sided PICC line with internal tip projecting over the superior vena cava. CONCLUSION: Infiltrates related to viral pneumonia, not significantly changed. Dictated by: Janel Lima MD on 09/24/2020 at 08:35 AM
[2020-09-24] MEDS: VITAMIN C PO SCH ×2 (09:00→22:00)
[2020-09-24] MEDS: SEROQUEL PO SCH ×2 (09:00→22:00)
[2020-09-24] MEDS: LOVENOX SQ SCH ×2 (09:00→22:00)
[2020-09-24] MEDS: LANTUS SQ SCH (09:00)
[2020-09-24] MEDS: ZINC SULFATE PO SCH ×2 (09:00→22:00)
[2020-09-24] MEDS: LASIX IV SCH (09:00)
[2020-09-24] MEDS: PROTONIX IV IV SCH (09:00)
[2020-09-24] MEDS: COLACE PO SCH ×2 (09:00→22:00)
[2020-09-24] MEDS: CEPHULAC NG SCH (09:00)
[2020-09-24] MEDS ORDERED: VERSED ONE ×3 (09:24→19:43)
[2020-09-24] MEDS: VERSED IV PRN ×3 (09:27→19:45)
[2020-09-24 09:33] LABS: ABG PCO2 61.8 mmHg (35.0-45.0); ABG PH 7.432 (7.350-7.450); BE(B) 13.6 mmol/L (-2.0-2.0); HCO3act 40.3 mmol/L (22.0-26.0)
[2020-09-24] MEDS ORDERED: KCL 20MEQ/100ML 100 ML IV SCH (10:00)
--- NOTE | 2020-09-24 10:30 | NUR ---
Completed telemedicine rounds with Dr. Reyes. Received ABG and patients current vitals. Potassium 3.6, provider ordered potassium chloride replacement, also blood sugar 76 Lantus will be discontinued, and Lasix decreased to 20mg daily. RT at bedside, increase fio2 to 85 percent per provider verbal order.
--- NOTE | 2020-09-24 10:39 | TELE.CONS ---
Consultation Reason for Consult: Reason for Consultation: COVID ARF Review of Systems Other Unable to obtain due to intubated state Allergies: Coded Allergies: No Known Allergies (Unverified , 09/03/20) Scheduled Lisinopril (Lisinopril), 1 TAB PO BID, (Reported) Metformin Hcl (Metformin Hcl), 1,000 MG PO BID, (Reported) VITALS REVIEW VITALS Vital Sign - Last 24 Hours 09/24/20 09/24/20 09/24/20 09/24/20 08:00 08:00 08:00 08:00 Pulse 95 82 Resp 26 26 26 Pulse Ox 100 97 O2 Delivery Mechanical Ventilator Mechanical Ventilator FiO2 70 70 70 09/24/20 09:00 B/P (MAP) 154/66 VTE VTE Risk Total Score: 2 VTE Risk Score VTE Risk: Score 0-1 = Low Risk (Aggressive mobilization; early ambulation; no VTE prophylaxis required) Score 2: Moderate Risk (Intermittent/Pneumatic Compression Device OR Lovenox/Heparin/Coumadin) Score 3-4: High Risk (Intermittent/Pneumatic Compression Device AND Lovenox/Heparin/Coumadin) Score > or =5: Highest Risk (Intermittent/Pneumatic Compression Device AND Lovenox/Heparin/Coumadin) Antico:Hep/LMWH/Coum/Xarelto: Yes VTE VTE Present on Admission: No Currently receiving anticoagul: No VTE Risk Total Score: 2 Antico:Hep/LMWH/Coum/Xarelto: Yes Assessment/Plan Assessment/Plan Assessment/Plan 64 y.o. male with COVID ARF; intubated CV: NSR with HR 84 BP 120/57---requires intermittent Levophed for pressor support Decrease diuresis Pulm: RR 26 97% on AC 26 400 70% 10 with ABG 7.43/61/67/40/92% Will decrease diuresis and increase Fi02 to 85%---follow sats Completed steroid course Continue Ventolin GI: Tolerating TFs T. Prot 5.6 Albumin 2.0 NL LFTs Glu 93---will discontinue Lantus due to persistent low glucose levels Protonix for stress ulcer prophylaxis : Adequate UO~2.3cc/kg/hr on Lasix diuresis Will decrease due to increase in bicarb BUN/Cr 16/0.7 Lytes: Optimize K+=3.6 ID: Afebrile Temp 99.1 WBC 8.3 Blood cultures neg Completed Remdesivir and received convalescent plasma CRP 15.29 and Procalcitonin 0.83 Trend markers Continue Vit C, Zinc Heme: H/H 06/29.6 Platelets 145 Continue anticoagulation Lovenox due to continued thrombotic risk D Dimer increased 5.22 Trend level Neuro: GCS 3T on Precedex, Fentanyl, Diprivan Intermittent Vec---would only use paralytic for vent dysschrony I saw this patient and completed full visual exam using audio-visual HIPAA compliant technology I discussed treatment plan with EDGE MOLDER and RT who assisted with video eval I spent 60 mins telemedicine critical care time Plan Increase vent support Anticoagulation Decrease diuresis Discontinue insulin TFs Stress ulcer prophylaxis Continue supportive care Trend markers DARVIN ROSA MD Sep 24, 2020 10:39
[2020-09-24] MEDS: TYLENOL PO PRN (12:16)
--- NOTE | 2020-09-24 12:43 | NUR ---
Patient blood pressure 88/49 MAP 60. Restarted levophed. Notified Dr. Craven
[2020-09-24] MEDS: NS IV SCH (13:53)
[2020-09-24] MEDS: SUBLIMAZE IV SCH (13:53)
[2020-09-24] MEDS: D5W-1/2NS 1000ML 1,000 ML IV SCH (19:00)
--- NOTE | 2020-09-24 19:00 | NUR ---
Received report from Genaro, CANDY MAKER. Assumed care of pt. Fentanyl infusion at 3 mcgs/kg/hour = 24.54 ml/hour, propofol infusion at 50 mcgs/kg/min = 24.54 ml/hour. Levophed infusion at 1 mcg/min =1.87 ml/hour to keep MAP > 65. Zeroed and recalibrated arterial line left radial. Correlates within 10 points mmHG of cuff BP. Pt's HR and BP increase with tactile and verbal stimulation and with oral care and oral and ETT suctioning.
--- NOTE | 2020-09-24 20:18 | PRM.PN ---
Subjective Subjective Pt s/e this AM at bedside. overall no acute events overnight. no significant changes in respiratory status, but his FiO2 needed to be increased again this AM to 80% Review of Systems Other unable to obtain due to intubation/sedation Exam Vital Signs Vital Signs Date Time Temp Pulse Resp B/P (MAP) Pulse Ox O2 Delivery O2 Flow Rate FiO2 09/24/20 19:00 98.4 82 26 113/52 (72) 98 Vent 85.00 112/50 (70) 09/24/20 17:00 85 General Appearance: Other (intubated/sedated) HEENT: PERRLA, Other (ET tube in place) Respiratory: Other (diminished bilaterally ) Cardiovascular: Regular rate, Normal S1, Normal S2, Other (NSR) Abdominal: Normal bowel sounds, Soft Extremities: No clubbing, No cyanosis, No edema Skin: No rash, No breakdown, No lesions Neuro: Other (intubated/sedated) Psych/Mental Status: Other (intubated/sedated) Meds/Labs/Orders Medication List: Current Medications Medications (Trade) Dose Ordered Sig/Adrianna PRN Reason Start Time Stop Time Status Last Admin Acetaminophen (Ofirmev) 1,000 mg Q8H PRN see dose instructions 09/23/20 04:30 10/23/20 04:29 09/24/20 04:20 Furosemide (Lasix) 20 mg DAILY 09/25/20 09:00 10/25/20 08:59 Potassium Chloride 100 ml @ 50 mls/hr OT 09/24/20 10:00 10/24/20 09:59 09/24/20 10:32 Lab results: Laboratory Tests Test 09/22/20 20:34 09/23/20 00:00 09/23/20 04:30 09/23/20 04:40 Bedside Glucose 157 175 Urine Collection Type VOID Urine Color YELLOW Urine Appearance CLEAR Urine Bilirubin NEGATIVE MG/DL Urine Ketones NEGATIVE Urine Specific [place] 1.015 Urine pH 8.5 Urine Protein 30 mg/dL Urine Urobilinogen >=8.0 Urine Nitrate NEGATIVE Urine Leukocyte Esterase NEGATIVE Urine Blood TRACE Urine RBC 2-5 RBC/HPF Urine WBC 0-2 WBC/HPF Urine Bacteria RARE Urine Glucose NEGATIVE White Blood Count 10.6 10^3/uL Red Blood Count 3.49 10^6/uL Hemoglobin 10.1 g/dL Hematocrit 31.5 % Mean Corpuscular Volume 90.3 fL Mean Corpuscular Hemoglobin 28.9 pg Mean Corpuscular Hemoglobin Concent 32.1 g/dL Red Cell Distribution Width 13.3 % Platelet Count 132 10^3/uL Mean Platelet Volume 10.5 fL Neutrophils (%) (Auto) 81.1 % Lymphocytes (%) (Auto) 7.6 % Monocytes (%) (Auto) 5.9 % Neutrophils # (Auto) 8.6 10^3/uL Lymphocytes # (Auto) 0.80 10^3/uL1 Monocytes # (Auto) 0.6 10^3/uL Absolute Immature Granulocyte (auto 0.21 10^3 u/L Absolute Eosinophils (auto) 0.4 10^3/uL Immature Granulocytes % 2.00 % Eosinophils % 3.3 % Basophils % 0.1 % Basophils # 0.0 10^3/uL Sodium Level 141 mmol/L Potassium Level 3.9 mmol/L Chloride Level 100.0 mmol/L Carbon Dioxide Level 38.3 mmol/L Anion Gap 6.6 Blood Urea Nitrogen 18 mg/dL Creatinine 0.84 mg/dL Estimated GFR () 111.3 Est GFR (CKD-EPI)(Non-Afr [place]ian) 92.0 BUN/Creatinine Ratio 21.0 Glucose Level 130 mg/dL Calcium Level 8.2 mg/dL Phosphorus Level 2.8 mg/dL Magnesium Level 2.3 mg/dL Total Bilirubin 0.7 mg/dL Aspartate Amino Transf (AST/SGOT) 32 U/L Alanine Aminotransferase (ALT/SGPT) 33 U/L Alkaline Phosphatase 134 U/L Total Protein 5.8 g/dL Albumin 2.5 g/dL Globulin 3.3 Albumin/Globulin Ratio 0.757 Test 09/23/20 06:27 09/23/20 07:25 09/23/20 10:02 09/23/20 13:30 Bedside Glucose 154 88 166 Blood Gas Sample Site SALOMÓN Blood Gas pH 7.421 Blood Gas PCO2 57.2 mmHg Blood Gas PO2 71.7 mmHg Blood Gas HCO3 36.4 mmol/L Blood Gas Base Excess 9.8 mmol/L Abdi Test N/A Arterial Blood Oxygen Saturation 93.6 % Deoxyhemoglobin 6.3 % Carboxyhemoglobin 0.9 % Methemoglobin 0.4 % Total Hemoglobin 13.8 % Total Oxygen Concentration 17.9 % Blood Gas Temperature 37 Oxygen Delivery Method (LAB) VENT Blood Gas Vent Mode ACVC+ Blood Gas Vent Rate 26 FiO2 70 % Blood Gas Tidal Volume 400 ML Blood Gas PEEP 10 CMH2O Total Carbon Dioxide 38.1 mmol/L Test 09/23/20 17:15 09/23/20 21:49 09/23/20 23:49 09/24/20 03:46 Bedside Glucose 86 181 153 White Blood Count 8.3 10^3/uL Red Blood Count 3.40 10^6/uL Hemoglobin 10.0 g/dL Hematocrit 30.6 % Mean Corpuscular Volume 90.0 fL Mean Corpuscular Hemoglobin 29.4 pg Mean Corpuscular Hemoglobin Concent 32.7 g/dL Red Cell Distribution Width 13.6 % Platelet Count 145 10^3/uL Mean Platelet Volume 10.9 fL Neutrophils (%) (Auto) 71.0 % Lymphocytes (%) (Auto) 14.0 % Monocytes (%) (Auto) 5.7 % Neutrophils # (Auto) 5.9 10^3/uL Lymphocytes # (Auto) 1.16 10^3/uL1 Monocytes # (Auto) 0.5 10^3/uL Absolute Immature Granulocyte (auto 0.31 10^3 u/L Absolute Eosinophils (auto) 0.4 10^3/uL Immature Granulocytes % 3.70 % Eosinophils % 5.2 % Basophils % 0.4 % Basophils # 0.0 10^3/uL D-Dimer 5.22 mg/L Sodium Level 142 mmol/L Potassium Level 3.6 mmol/L Chloride Level 102.0 mmol/L Carbon Dioxide Level 38.9 mmol/L Anion Gap 4.7 Blood Urea Nitrogen 16 mg/dL Creatinine 0.72 mg/dL Estimated GFR () 133.0 Est GFR (CKD-EPI)(Non-Afr [place]ian) 109.9 BUN/Creatinine Ratio 22.0 Glucose Level 93 mg/dL Calcium Level 8.2 mg/dL Phosphorus Level 3.7 mg/dL Magnesium Level 2.2 mg/dL Ferritin 644 ng/mL Total Bilirubin 0.5 mg/dL Aspartate Amino Transf (AST/SGOT) 28 U/L Alanine Aminotransferase (ALT/SGPT) 33 U/L Alkaline Phosphatase 128 U/L Lactate Dehydrogenase 195 U/L Total Creatine Kinase 49 U/L C-Reactive Protein 15.29 mg/dL Total Protein 5.6 g/dL Albumin 2.0 g/dL Globulin 3.6 Albumin/Globulin Ratio 0.555 Procalcitonin 0.83 ng/mL Test 09/24/20 06:26 09/24/20 09:19 09/24/20 10:11 09/24/20 13:57 Bedside Glucose 102 76 127 Blood Gas Sample Site ART LINE Blood Gas pH 7.432 Blood Gas PCO2 61.8 mmHg Blood Gas PO2 67.0 mmHg Blood Gas HCO3 40.3 mmol/L Blood Gas Base Excess 13.6 mmol/L Abdi Test N/A Arterial Blood Oxygen Saturation 92.6 % Deoxyhemoglobin 7.3 % Carboxyhemoglobin 0.4 % Methemoglobin 0.4 % Total Hemoglobin 11.9 % Total Oxygen Concentration 15.4 % Oxygen Delivery Method (LAB) MV Blood Gas Vent Mode ACVC+ Blood Gas Vent Rate 26 FiO2 70 % Blood Gas Tidal Volume 400 ML Blood Gas PEEP 10.0 CMH2O Total Carbon Dioxide 42.2 mmol/L Test 09/24/20 18:07 Bedside Glucose 157 Assessment/Plan Assessment/Plan Assessment/Plan A 64 y.o. male w/ PMHx significant for HTN, HLD, DM II, who was admitted on Sep 03 for Acute Hypoxemic respiratory failure. Initially, his COVID testing returned negative and his hypoxemia was thought to be 2/2 another etiology. However, after no etiology could be elucidated, a COVID PCR was repeated and returned positive. He was then started on treatment for COVID-19 with Azithromycin, steroids, Remdesivir, CCP, and Zinc/Vitamin C. Despite treatment, his respiratory status slowly declined and he was intubated on Sep 13. At this time, he is stable on current sedation and intermittently requiring pressors pressors. He was started on proning protocol on Sep 18, 16h prone and 8h supine. This was held starting the evening of Sep 21 due to periorbital edema and chemosis, which resolved spontaneously. He fevered again to 101F on Sep 23 and had repeat Blood, urine, and sputum cultures drawn. At this time, he has made very little progress towards being weaned from the vent and is approaching 14 days of ventilation. I discussed this with his daughters, and explained that he would not be a good candidate for a tracheostomy as he has made very little progress to this point. However, will defer further discussions for a later date. COVID PNEUMONIA SEVERE ARDS ACUTE HYPOXEMIC RESPIRATORY FAILURE SEPTIC SHOCK - Telemed Intensivists following; appreciate assistance with vent and medical management - Completed 5 days of Remdesivir - Completed 5 days of Azithromycin - Pt was started on Dexamethasone initially for treatment of COVID; he was transitioned to Methylprednisolone at some point, which was discontinued on Sep 17. - Pt has completed 5 days of Rocephin for CAP PNA today; will discontinue - Duonebs q4h scheduled - Given P/F ratio, will start proning. 16h prone, 8h supine. holding proning due to periorbital edema and chemosis - continue sedation with RASS goal of < - 2 - minimize vec pushes if possible - Pt meets criteria for septic shock given +SIRS, infection, and hypotension requiring pressors - goal fluid balance should be negative to keep Pt as dry as possible - follow repeat Blood/urine/sputum cultures; so far no growth to date - decreased lasix to 20mg daily ESSENTIAL HYPERTENSION - stable with pressors - holding home antihypertensives for now T2DM - blood sugars very labile - decreased insulin to just Sliding scale due to hypoglycemia at night - enteral feeding ongoing STAGE I ZOEY, resolved - likely pre-renal given hypotension and septic shock requiring pressors - continue to monitor Cr closely; currently on the downtrend - avoid further hypotension Keep MAP > 60 - avoid nephrotoxins where possible - monitor UOP; - Keep pt as dry as possible while maintaining UOP/renal function Hypoalbuminemia, improved - albumin very low at 1.2 [09/21]; improved to 1.4 with 25% Albumin - Gave 25% Albumin q8h x3 Sep 22. Albumin improved to 2.5 - monitor Periorbital Edema Chemosis - likely 2/2 low albumin and proning - holding proning tonight and giving albumin - improved significantly; continue to monitor Feeding - GLUCERNA 1.5CAL Analgesia - fentanyl gtt Sedation - Propofol. precedex, versed VTE ppx - lovenox Head of bed - 30 degrees GI ppx - protonix Spontaneous breathing trial - not ready Bowels care - having regular BMs UOP - Crawford in place Time Spent: > 35 minutes spent in chart review, patient evaluation, coordination of care, and documentation, including 30 min of critical care time BAMBI KAUR DO Sep 24, 2020 20:18
--- NOTE | 2020-09-24 20:30 | NUR ---
Daughter Shoemy in ICU to visit her mother (pt's ). Updated daughter at this time. She was able to see father even though no visitation allowed except end of life care. All questions answered.
--- NOTE | 2020-09-24 22:30 | NUR ---
Levophed drip held due to stable BP on cuff and arterial line. Pt afebrile at present.
[2020-09-25] VITALS (85 sets, daily range): BP systolic 87–158; BP diastolic 47–79
--- NOTE | 2020-09-25 00:30 | NUR ---
Pt anxious at times with increased HR from 85 to 97 and increased BP with tactile sitmulation and oral and ETT suctioning done at this time.
[2020-09-25] MEDS: DIPRIVAN IV SCH ×5 (01:44→20:58)
--- NOTE | 2020-09-25 01:46 | NUR ---
new propofol bottle hung. Prior bottle was hung at 2200 but not charted at that time so 2 bottles appear to have been hung at 0144 and 0146
--- NOTE | 2020-09-25 04:00 | NUR ---
Full bath given with skin care and linens changed including lifting and turning pad and chux pads under pt. Pt had 1 small liquid BM brown. No skin breakdown noted. Coccyx and sacrum intact with mepilex dressing on. Oral care and oral & ETT suctioning done
[2020-09-25 05:03] LABS: BASOPHIL % 0.3 % (0.0-0.2); EOSINOPHIL # 0.7 10^3/uL (0.0-0.2); LYMPHOCYTES # 1.45 10^3/uL1 (1.0-4.8); LYMPHOCYTES % 15.1 % (24.0-44.0); MEAN CORP HGB 28.8 pg (26-34); MONOCYTES # 0.4 10^3/uL (0.3-0.8); NEUTROPHIL # 6.5 10^3/uL (1.8-7.7); NEUTROPHILS % 67.5 % (41.0-85.0); PLATELET COUNT 171 10^3/uL (150-400); RED CELL DISTRIBUTION WIDTH 13.7 % (11.5-14.5)
[2020-09-25 05:26] LABS: CALCIUM 8.6 mg/dL (8.4-10.5); CARBON DIOXIDE 37.2 mmol/L (20.0-32)
[2020-09-25] MEDS: TYLENOL PO PRN ×2 (05:40→20:37)
[2020-09-25] MEDS: HUMALOG SQ SCH ×3 (06:00→12:00)
--- NOTE | 2020-09-25 07:00 | NUR ---
Report given to Gosia [employer] SALES SUPERVISOR.
[2020-09-25 07:59] LABS: ABG PCO2 52.9 mmHg (35.0-45.0); ABG PH 7.417 (7.350-7.450); BE(B) 7.3 mmol/L (-2.0-2.0); HCO3act 33.3 mmol/L (22.0-26.0); pO2 77.6 mmHg (80.0-100.0)
[2020-09-25] MEDS ORDERED: WATER ONE (08:59)
[2020-09-25] MEDS: COLACE PO SCH ×2 (09:00→20:35)
[2020-09-25] MEDS: LASIX IV SCH (09:00)
[2020-09-25] MEDS: PROTONIX IV IV SCH (09:00)
[2020-09-25] MEDS: CEPHULAC NG SCH (09:00)
[2020-09-25] MEDS: ZINC SULFATE PO SCH ×2 (09:00→20:36)
[2020-09-25] MEDS: VITAMIN C PO SCH ×2 (09:00→20:36)
[2020-09-25] MEDS: LOVENOX SQ SCH ×2 (09:00→20:37)
[2020-09-25] MEDS: SEROQUEL PO SCH ×2 (09:00→20:35)
[2020-09-25] MEDS: VENTOLIN HFA IH PRN (09:08)
[2020-09-25] MEDS: SUBLIMAZE IV SCH (10:30)
[2020-09-25] MEDS: NS IV SCH (10:30)
--- NOTE | 2020-09-25 13:37 | DIET.OP ---
Nutrition Asmt/Malnutrit 2-17 Actual Date of Review: Sep 25, 2020 Diagnosis: Covid 19, Acute Hypoxemic Respiratory Failure Pertinent Medical Hx/Surgical: HTN, HLD, T2DM Subjective Information: telehealth f/u- pt remains intubated and sedated. Propofol at 50 mcg/kg/min providing 648 kcal. Current Diet Order/Nutrition S: NPO Patient /S.O: Not Indicated Pertinent Meds Current Medications Medications (Trade) Dose Ordered Sig/Adrianna Route PRN Reason Start Time Stop Time Status Last Admin Dose Admin Acetaminophen (Tylenol) 325 mg Q4H PRN PO PAIN 1 - 3 09/03/20 19:00 09/05/20 19:26 DC Morphine Sulfate (Morphine Sulfate) 2 mg Q4H PRN IV PAIN 4 - 6 09/03/20 19:00 09/04/20 19:28 DC Insulin Human Lispro (Humalog) 0-140 0 Units 141-200... ACHS SQ 09/03/20 21:00 09/13/20 19:43 DC 09/13/20 17:28 Dextrose 1,000 ml @ 100 mls/hr Q10H PRN IV HYPOGLYCEMIA 09/03/20 19:00 09/22/20 10:02 DC Dextrose (Dextrose 50%-Water Syringe) 25 ml STAT PRN IV HYPOGLYCEMIA 09/03/20 19:00 10/03/20 18:59 Glucagon (Glucagen) 1 mg STAT STAT IV 09/03/20 18:44 09/03/20 18:56 DC Heparin Sodium (Porcine) (Heparin) 5,000 unit Q8HR SQ 09/03/20 22:00 09/04/20 20:10 DC 09/04/20 14:00 Lisinopril (Zestril) 20 mg BID PO 09/03/20 21:00 09/14/20 11:07 DC 09/12/20 21:00 Azithromycin 500 mg/Sodium Chloride 250 ml @ 175 mls/hr Q24HRS IV 09/03/20 20:30 09/04/20 08:15 DC 09/03/20 21:11 Ceftriaxone Sodium 1000 mg/ Sodium Chloride 100 ml @ 100 mls/hr Q24HRS IV 09/03/20 19:30 09/04/20 08:15 DC 09/03/20 19:39 Sodium Chloride 1,000 ml @ 75 mls/hr [id number] IV 09/03/20 20:00 09/11/20 10:16 DC 09/11/20 01:20 Ceftriaxone Sodium (Rocephin) 1,000 mg STK-MED ONCE .ROUTE 09/03/20 19:35 09/03/20 19:35 DC Sodium Chloride 100 ml @ ud STK-MED ONCE IV 09/03/20 19:35 09/03/20 19:36 DC Zinc Sulfate (Zinc Sulfate) 220 mg DAILY PO 09/04/20 09:00 09/05/20 00:13 DC 09/04/20 08:22 Ascorbic Acid (Vitamin C) 500 mg BID PO 09/04/20 09:00 09/05/20 00:13 DC 09/04/20 20:22 Morphine Sulfate (Morphine Sulfate) 2 mg Q4H PRN IV PAIN 4 - 6 09/04/20 19:28 09/17/20 11:06 DC Enoxaparin Sodium (Lovenox) 75 mg BID SQ 09/04/20 20:30 09/05/20 11:39 DC 09/05/20 08:20 Azithromycin (Zithromax) 500 mg OT ONCE PO 09/05/20 00:00 09/05/20 02:22 DC 09/05/20 00:27 Ceftriaxone Sodium 2000 mg/ Sodium Chloride 100 ml @ 100 mls/hr Q24HRS IV 09/05/20 00:00 09/09/20 18:46 DC 09/08/20 23:59 Azithromycin (Zithromax) 250 mg DAILY PO 09/05/20 19:00 09/09/20 18:59 DC 09/09/20 08:31 Ceftriaxone Sodium (Rocephin) 1,000 mg STK-MED ONCE .ROUTE 09/05/20 00:25 09/05/20 00:26 DC Sodium Chloride 100 ml @ ud STK-MED ONCE IV 09/05/20 00:26 09/05/20 00:26 DC Enoxaparin Sodium (Lovenox) 40 mg DAILY SQ 09/06/20 09:00 09/09/20 18:47 DC 09/09/20 08:31 Ascorbic Acid (Vitamin C) 1,000 mg BID PO 09/05/20 21:00 10/05/20 20:59 09/25/20 09:00 Zinc Sulfate (Zinc Sulfate) 220 mg BID PO 09/05/20 21:00 10/05/20 20:59 09/25/20 09:00 Albuterol Sulfate (Ventolin Hfa) 2 inh RTQ4 IH 09/05/20 13:00 09/20/20 10:05 DC 09/20/20 08:30 Acetaminophen (Tylenol) 1,000 mg Q6H PRN PO PAIN 1 - 3 09/05/20 12:00 10/05/20 11:59 09/25/20 05:40 Enoxaparin Sodium (Lovenox) 40 mg STK-MED ONCE SQ 09/06/20 07:12 09/06/20 07:12 DC Remdesivir 200 mg/ Sodium Chloride 140 ml @ 120.69 mls/ hr OT STAT IV 09/07/20 18:45 09/07/20 19:54 DC 09/07/20 19:10 Remdesivir 100 mg/ Sodium Chloride 120 ml @ 111.111 mls/hr Q24HRS IV 09/08/20 19:00 09/13/20 07:12 DC 09/12/20 19:00 Potassium Chloride (Klor-Con 10) 40 meq OT PO 09/08/20 13:00 09/11/20 15:50 DC 09/09/20 04:56 Metoprolol Tartrate (Lopresser) 10 mg STAT STAT IVP 09/09/20 11:00 09/09/20 11:04 DC 09/09/20 11:34 Metoprolol Tartrate (Lopresser) 25 mg BID PO 09/09/20 21:00 09/14/20 11:02 DC 09/12/20 21:00 Enoxaparin Sodium (Lovenox) 80 mg BID SQ 09/09/20 19:00 09/11/20 15:51 DC 09/11/20 09:00 Sodium Chloride 250 ml @ ud STK-MED ONCE IV 09/10/20 12:50 09/10/20 12:51 DC Enoxaparin Sodium (Lovenox) 80 mg STK-MED ONCE SQ 09/10/20 21:17 09/10/20 21:17 DC Lorazepam (Ativan) 1 mg Q4HR PRN IV ANXIETY 09/11/20 00:30 09/18/20 08:58 DC 09/13/20 04:00 Enoxaparin Sodium (Lovenox) 80 mg BID SQ 09/11/20 21:00 09/13/20 15:41 DC 09/12/20 21:00 Methylprednisolone Acetate (Depo-Medrol) 40 mg Q8HR IM 09/11/20 22:00 09/11/20 18:19 DC Quetiapine Fumarate (Seroquel) 25 mg BID PO 09/12/20 21:00 09/13/20 15:41 DC 09/12/20 21:00 Quetiapine Fumarate (Seroquel) 25 mg BID PO 09/13/20 03:00 09/13/20 04:46 DC Dexmedetomidine HCl 400 mcg/ Sodium Chloride 100 ml @ 0 mls/hr IV 09/13/20 05:00 10/13/20 04:59 09/14/20 09:26 Sodium Chloride 100 ml @ ud STK-MED ONCE IV 09/13/20 05:16 09/13/20 05:16 DC Hydralazine HCl (Apresoline) 5 mg STAT STAT IV 09/13/20 08:19 09/13/20 08:21 DC 09/13/20 08:30 Hydralazine HCl (Apresoline) 5 mg STAT STAT IV 09/13/20 09:43 09/13/20 10:03 DC 09/13/20 09:43 Sterile Water (Water) 1,000 ml STK-MED ONCE .ROUTE 09/13/20 11:31 09/13/20 11:31 DC Sodium Chloride 1,000 ml @ ud STK-MED ONCE .ROUTE 09/13/20 11:31 09/13/20 11:31 DC Propofol 100 ml @ ud STK-MED ONCE IV 09/13/20 11:46 09/13/20 11:47 DC Propofol (Diprivan) 1,000 mg STAT IV 09/13/20 13:00 10/13/20 12:59 09/25/20 09:30 Sodium Chloride 1,000 ml @ 0 mls/hr Q0M ONCE IV 09/13/20 11:45 09/13/20 13:21 DC 09/13/20 11:45 Fentanyl Citrate 2000 mcg/Sodium Chloride 200 ml @ 7.4 mls/hr IV 09/13/20 16:00 09/13/20 19:50 DC 09/13/20 16:17 Methylprednisolone Sodium Succinate (Solu-Medrol) 40 mg Q8HR IV 09/13/20 22:00 09/17/20 07:00 DC 09/17/20 06:00 Succinylcholine Chloride (Quelicin) 100 mg STK-MED ONCE IV 09/13/20 11:58 09/13/20 18:48 DC Propofol (Diprivan) 150 mg STK-MED ONCE IV 09/13/20 11:58 09/13/20 18:48 DC Furosemide (Lasix) 20 mg STAT STAT IV 09/13/20 19:07 09/13/20 19:47 DC 09/13/20 19:07 Enoxaparin Sodium (Lovenox) 70 mg BID SQ 09/13/20 21:00 10/13/20 20:59 09/25/20 09:00 Insulin Human Lispro (Humalog) 0-140 0 Units 141-200... Q6 SQ 09/14/20 00:00 10/16/22 20:59 09/25/20 06:00 Fentanyl Citrate 5000 mcg/Sodium Chloride 500 ml @ 11.4 mls/hr IV 09/13/20 20:00 10/13/20 19:59 09/25/20 10:30 Sodium Chloride 500 ml @ 500 mls/hr Q1H ONCE IV 09/13/20 21:00 09/13/20 21:59 DC 09/13/20 21:00 Sodium Chloride 500 ml @ ud STK-MED ONCE IV 09/13/20 20:34 09/13/20 20:34 DC Sodium Chloride 250 ml @ ud STK-MED ONCE IV 09/13/20 20:34 09/13/20 20:34 DC Norepinephrine Bitartrate (Levophed) 4 mg STK-MED ONCE .ROUTE 09/13/20 20:34 09/13/20 20:35 DC Norepinephrine Bitartrate 8 mg/ Sodium Chloride 250 ml @ 0 mls/hr PRN PRN IV HYPOTENSION 09/13/20 21:00 09/19/20 10:29 DC 09/18/20 13:20 Furosemide (Lasix) 40 mg STK-MED ONCE .ROUTE 09/13/20 21:19 09/13/20 21:19 DC Docusate Sodium (Colace) 100 mg BID PO 09/14/20 21:00 10/14/20 20:59 09/25/20 09:00 Ceftriaxone Sodium 1000 mg/ Sodium Chloride 100 ml @ 200 mls/hr Q24HRS IV 09/14/20 15:00 09/19/20 09:11 DC 09/18/20 15:09 Azithromycin 500 mg/Sodium Chloride 250 ml @ 175 mls/hr Q24HRS IV 09/14/20 16:00 09/17/20 15:59 DC 09/16/20 16:00 Sodium Chloride 1,000 ml @ 75 mls/hr [id number] IV 09/14/20 15:30 09/17/20 11:06 DC 09/16/20 17:28 Heparin Sodium/ Sodium Chloride 500 ml @ ud STK-MED ONCE IV 09/14/20 18:32 09/14/20 18:32 DC Vecuronium [place] (Norcuron) 10 mg STK-MED ONCE .ROUTE 09/14/20 18:40 09/14/20 18:40 DC Sterile Water (Water) 1,000 ml STK-MED ONCE .ROUTE 09/15/20 00:38 09/15/20 00:39 DC Insulin Glargine (Lantus) 10 unit BID SQ 09/15/20 14:30 09/16/20 12:30 DC 09/16/20 08:28 Sterile Water (Water) 1,000 ml STK-MED ONCE .ROUTE 09/15/20 20:12 09/15/20 20:13 DC Vecuronium [place] (Norcuron) 10 mg STAT ONCE IV 09/16/20 10:00 09/16/20 10:12 DC 09/16/20 11:00 Insulin Glargine (Lantus) 20 unit BID SQ 09/16/20 21:00 09/24/20 10:44 DC 09/23/20 21:45 Pantoprazole Sodium (Protonix Iv) 40 mg DAILY IV 09/17/20 09:00 10/17/20 08:59 09/25/20 09:00 Sterile Water (Water) 1,000 ml STK-MED ONCE .ROUTE 09/16/20 16:52 09/16/20 16:53 DC Furosemide (Lasix) 20 mg STAT ONCE IV 09/17/20 08:00 09/17/20 08:17 DC 09/17/20 08:00 Quetiapine Fumarate (Seroquel) 25 mg BID PO 09/17/20 09:30 10/17/20 09:29 09/25/20 09:00 Vecuronium [place] (Norcuron) 10 mg Q2 PRN IV AGITATION 09/17/20 11:30 09/18/20 08:53 DC 09/17/20 15:00 Furosemide (Lasix) 40 mg DAILY IV 09/17/20 11:30 09/24/20 10:44 DC 09/24/20 09:00 Lactulose (Cephulac) 20 gm DAILY NG 09/18/20 09:00 09/18/20 08:56 DC Norepinephrine Bitartrate (Levophed) 4 mg STK-MED ONCE .ROUTE 09/17/20 16:16 09/17/20 16:17 DC Sodium Chloride 250 ml @ ud STK-MED ONCE IV 09/17/20 16:16 09/17/20 16:17 DC Sterile Water (Water) 1,000 ml STK-MED ONCE .ROUTE 09/17/20 18:20 09/17/20 18:21 DC Sodium Chloride 100 ml @ ud STK-MED ONCE IV 09/17/20 22:27 09/17/20 22:28 DC Fentanyl Citrate (Sublimaze) 50 mcg STK-MED ONCE .ROUTE 09/17/20 22:28 09/17/20 22:29 DC Vecuronium [place] (Norcuron) 10 mg Q2 IV 09/18/20 09:00 09/20/20 10:04 DC 09/20/20 08:00 Lactulose (Cephulac) 20 gm DAILY NG 09/18/20 09:00 10/18/20 08:59 09/25/20 09:00 Vecuronium [place] (Norcuron) 5 mg Q1HR PRN IV Additional Paralysis 09/18/20 09:00 10/18/20 08:59 09/21/20 17:19 Sterile Water (Water) 1,000 ml STK-MED ONCE .ROUTE 09/18/20 09:55 09/18/20 09:55 DC Heparin Sodium/ Dextrose 500 ml @ ud STK-MED ONCE IV 09/18/20 13:59 09/18/20 13:59 DC Cefepime HCl 2 gm/ Sodium Chloride 100 ml @ 100 mls/hr Q8H IV 09/19/20 09:00 09/20/20 10:04 DC 09/20/20 09:00 Norepinephrine Bitartrate 8 mg/ Sodium Chloride 250 ml @ 0 mls/hr TITRATE ONCE IV 09/19/20 11:00 09/19/20 11:01 DC 09/19/20 10:30 Norepinephrine Bitartrate 8 mg/ Sodium Chloride 250 ml @ 0 mls/hr TITRATE IV 09/19/20 12:00 10/19/20 11:59 09/23/20 14:20 Sterile Water (Water) 1,000 ml STK-MED ONCE .ROUTE 09/20/20 08:08 09/20/20 08:09 DC Vecuronium [place] (Norcuron) 10 mg Q3H PRN IV vent/dsynchonry hypoxia 09/20/20 10:30 10/20/20 10:29 09/22/20 20:25 Midazolam HCl (Versed) 2 mg Q2H PRN IV SEDATION 09/20/20 10:30 10/20/20 10:29 UNV Albuterol Sulfate (Ventolin Hfa) 2 inh PRN PRN IH wheezing 09/20/20 10:30 10/20/20 10:29 09/22/20 08:30 Vasopressin 20 unit/Sodium Chloride 100 ml @ 0 mls/hr PRN ONCE IV 09/20/20 17:00 09/20/20 17:01 DC Furosemide (Lasix) 60 mg OT ONCE IV 09/21/20 15:00 09/21/20 15:13 DC Albumin Human (Buminate 25%) 100 ml OT ONCE IV 09/21/20 15:00 09/21/20 15:13 DC 09/21/20 15:00 Sterile Water (Water) 1,000 ml STK-MED ONCE .ROUTE 09/21/20 15:26 09/21/20 15:26 DC Albumin Human (Buminate 25%) 100 ml Q8H IV 09/22/20 10:00 09/23/20 09:59 DC 09/23/20 02:00 Sterile Water (Water) 1,000 ml STK-MED ONCE .ROUTE 09/22/20 17:13 09/22/20 17:14 DC Acetaminophen (Ofirmev) 1,000 mg Q8H PRN IV see dose instructions 09/23/20 04:30 10/23/20 04:29 09/24/20 04:20 Sodium Chloride 250 ml @ ud STK-MED ONCE IV 09/23/20 14:14 09/23/20 14:14 DC Norepinephrine Bitartrate (Levophed) 4 mg STK-MED ONCE .ROUTE 09/23/20 14:14 09/23/20 14:14 DC Potassium Chloride 100 ml @ 50 mls/hr OT IV 09/24/20 10:00 10/24/20 09:59 09/24/20 10:32 Furosemide (Lasix) 20 mg DAILY IV 09/25/20 09:00 10/25/20 08:59 09/25/20 09:00 Heparin Sodium/ Sodium Chloride 500 ml @ ud STK-MED ONCE IV 09/25/20 07:09 09/25/20 07:10 DC Sterile Water (Water) 1,000 ml STK-MED ONCE .ROUTE 09/25/20 08:59 09/25/20 08:59 DC Pertinent Labs Laboratory Tests Test 09/23/20 17:15 09/23/20 21:49 09/23/20 23:49 09/24/20 03:46 Bedside Glucose 86 181 153 White Blood Count 8.3 10^3/uL Red Blood Count 3.40 10^6/uL Hemoglobin 10.0 g/dL Hematocrit 30.6 % Mean Corpuscular Volume 90.0 fL Mean Corpuscular Hemoglobin 29.4 pg Mean Corpuscular Hemoglobin Concent 32.7 g/dL Red Cell Distribution Width 13.6 % Platelet Count 145 10^3/uL Mean Platelet Volume 10.9 fL Neutrophils (%) (Auto) 71.0 % Lymphocytes (%) (Auto) 14.0 % Monocytes (%) (Auto) 5.7 % Neutrophils # (Auto) 5.9 10^3/uL Lymphocytes # (Auto) 1.16 10^3/uL1 Monocytes # (Auto) 0.5 10^3/uL Absolute Immature Granulocyte (auto 0.31 10^3 u/L Absolute Eosinophils (auto) 0.4 10^3/uL Immature Granulocytes % 3.70 % Eosinophils % 5.2 % Basophils % 0.4 % Basophils # 0.0 10^3/uL D-Dimer 5.22 mg/L Sodium Level 142 mmol/L Potassium Level 3.6 mmol/L Chloride Level 102.0 mmol/L Carbon Dioxide Level 38.9 mmol/L Anion Gap 4.7 Blood Urea Nitrogen 16 mg/dL Creatinine 0.72 mg/dL Estimated GFR () 133.0 Est GFR (CKD-EPI)(Non-Afr German) 109.9 BUN/Creatinine Ratio 22.0 Glucose Level 93 mg/dL Calcium Level 8.2 mg/dL Phosphorus Level 3.7 mg/dL Magnesium Level 2.2 mg/dL Ferritin 644 ng/mL Total Bilirubin 0.5 mg/dL Aspartate Amino Transf (AST/SGOT) 28 U/L Alanine Aminotransferase (ALT/SGPT) 33 U/L Alkaline Phosphatase 128 U/L Lactate Dehydrogenase 195 U/L Total Creatine Kinase 49 U/L C-Reactive Protein 15.29 mg/dL Total Protein 5.6 g/dL Albumin 2.0 g/dL Globulin 3.6 Albumin/Globulin Ratio 0.555 Procalcitonin 0.83 ng/mL Test 09/24/20 06:26 09/24/20 09:19 09/24/20 10:11 09/24/20 13:57 Bedside Glucose 102 76 127 Blood Gas Sample Site ART LINE Blood Gas pH 7.432 Blood Gas PCO2 61.8 mmHg Blood Gas PO2 67.0 mmHg Blood Gas HCO3 40.3 mmol/L Blood Gas Base Excess 13.6 mmol/L Abdi Test N/A Arterial Blood Oxygen Saturation 92.6 % Deoxyhemoglobin 7.3 % Carboxyhemoglobin 0.4 % Methemoglobin 0.4 % Total Hemoglobin 11.9 % Total Oxygen Concentration 15.4 % Oxygen Delivery Method (LAB) MV Blood Gas Vent Mode ACVC+ Blood Gas Vent Rate 26 FiO2 70 % Blood Gas Tidal Volume 400 ML Blood Gas PEEP 10.0 CMH2O Total Carbon Dioxide 42.2 mmol/L Test 09/24/20 18:07 09/24/20 23:49 09/25/20 04:00 09/25/20 05:45 Bedside Glucose 157 127 160 White Blood Count 9.6 10^3/uL Red Blood Count 3.75 10^6/uL Hemoglobin 10.8 g/dL Hematocrit 34.1 % Mean Corpuscular Volume 90.9 fL Mean Corpuscular Hemoglobin 28.8 pg Mean Corpuscular Hemoglobin Concent 31.7 g/dL Red Cell Distribution Width 13.7 % Platelet Count 171 10^3/uL Mean Platelet Volume 11.2 fL Neutrophils (%) (Auto) 67.5 % Lymphocytes (%) (Auto) 15.1 % Monocytes (%) (Auto) 4.0 % Neutrophils # (Auto) 6.5 10^3/uL Lymphocytes # (Auto) 1.45 10^3/uL1 Monocytes # (Auto) 0.4 10^3/uL Absolute Immature Granulocyte (auto 0.58 10^3 u/L Absolute Eosinophils (auto) 0.7 10^3/uL Immature Granulocytes % 6.10 % Eosinophils % 7.0 % Basophils % 0.3 % Basophils # 0.0 10^3/uL Sodium Level 141 mmol/L Potassium Level 4.4 mmol/L Chloride Level 101.0 mmol/L Carbon Dioxide Level 37.2 mmol/L Anion Gap 7.2 Blood Urea Nitrogen 20 mg/dL Creatinine 0.90 mg/dL Estimated GFR () 102.8 Est GFR (CKD-EPI)(Non-Afr German) 85.0 BUN/Creatinine Ratio 22.0 Glucose Level 149 mg/dL Calcium Level 8.6 mg/dL Phosphorus Level 5.6 mg/dL Magnesium Level 2.4 mg/dL Total Bilirubin 0.4 mg/dL Aspartate Amino Transf (AST/SGOT) 28 U/L Alanine Aminotransferase (ALT/SGPT) 31 U/L Alkaline Phosphatase 135 U/L Total Protein 6.0 g/dL Albumin 2.0 g/dL Globulin 4.0 Albumin/Globulin Ratio 0.500 Test 09/25/20 07:42 09/25/20 11:30 Blood Gas Sample Site [place] Blood Gas pH 7.417 Blood Gas PCO2 52.9 mmHg Blood Gas PO2 77.6 mmHg Blood Gas HCO3 33.3 mmol/L Blood Gas Base Excess 7.3 mmol/L Abdi Test N/A Arterial Blood Oxygen Saturation 95.4 % Deoxyhemoglobin 4.6 % Carboxyhemoglobin 0.6 % Methemoglobin 0.3 % Total Hemoglobin 13.0 % Total Oxygen Concentration 17.3 % Blood Gas Temperature 37 Oxygen Delivery Method (LAB) VENT Blood Gas Vent Mode ACVC Blood Gas Vent Rate 26 FiO2 85 % Blood Gas Tidal Volume 400 ML Blood Gas PEEP 10 CMH2O Total Carbon Dioxide 34.9 mmol/L Bedside Glucose 171 Height (Feet): 5 Height (Inches): 6 Current Weight: 171 %IBW: 132 Recent Weight Change: Yes (stable since last assessment) Weight Status: Overweight GI Symptoms: Last BM (regular BMs per MD note - last 09/25) Food Allergies: No Cultural/Ethnic/Moravian Mary[place]ou: none identified BEE in Kcals: Use Current Weight Calories/Kcals/Kg: [address] 2002 (09/20) Kcals Calculated: 1817 kcal Protein: Use Current Weight Protein g/k.8-1 g/kg Protein Calculated: 60-75g Fluid: ml: 7540-0399 ml or 1 ml/kcal RD Comments: *If pt is not being proned: 1. Recommend Glucerna 1.5 135cc Q4h with 155cc water flush Q4. This will provide 1215 kcal, 67 g pro, 108 g CHO, 61 g fat, and 1545 ml of water to meet 100% of the pts nutrition needs in combination with calories from propofol. If pt is being proned: 1. Recommend Glucerna 1.5 210cc Q2hr while pt is supine for a goal of 4-bolus pushes of 210cc during the 8 hr period that he is supine. This will provide 1260 kcal, 69 g pro, 112 g CHO, and 63 g fat which will meet 100% of his nutrition needs in combination with calories from propofol. 2. Recommend 160cc water flushes Q4 hrs regardless of position. If MD would prefer no water flushes when prone then recommend maintaining hydration with IV fluids as needed. Monitor K, Mg, and PO4 before and during EN initiation. Monitor BG Q4hr and correct as indicated. RD to monitor TF tolerance, weight, labs, care plan, and vent and sedation setti ng. Will update recommendations accordingly. Expected Outcomes TF meeting 100% of pts needs the next 2 days and tolerated well. Discharge goal is pending. Malnutrtion/Nutrition Risk Edu: No MD Notificiation Needed?: No Jessica Morris Sep 25, 2020 13:37
--- NOTE | 2020-09-25 16:52 | TELE.CONS ---
Consultation Reason for Consult: Reason for Consultation: COVID History of Present Illness History of Patient Comments The pt is intubated an sedated Review of Systems Allergies: Coded Allergies: No Known Allergies (Unverified , 09/03/20) Scheduled Lisinopril (Lisinopril), 1 TAB PO BID, (Reported) Metformin Hcl (Metformin Hcl), 1,000 MG PO BID, (Reported) VITALS REVIEW VITALS Vital Sign - Last 24 Hours 09/25/20 09/25/20 09/25/20 09/25/20 07:00 07:15 07:30 07:45 Temp 99.5 99.5 99.3 99.3 Pulse 96 94 94 90 Resp B/P (MAP) 105/54 (71) 103/51 (68) 107/57 (74) 108/50 (69) 101/50 (67) 107/54 (71) Pulse Ox 97 98 98 98 09/25/20 09/25/20 09/25/20 09/25/20 08:00 08:00 08:00 08:15 Temp 99.3 99.1 Pulse 85 89 90 Resp B/P (MAP) 116/62 (80) 123/56 (78) 122/56 (78) Pulse Ox 99 98 97 O2 Delivery Mechanical Ventilator FiO2 85 09/25/20 09/25/20 09/25/20 09/25/20 08:29 08:30 08:30 08:45 Temp 99.1 99.1 Pulse 89 88 88 87 Resp B/P (MAP) 117/63 (81) 109/52 (71) 115/53 (73) Pulse Ox 97 97 98 98 O2 Delivery Mechanical Ventilator FiO2 85 85 09/25/20 09/25/20 09/25/20 09/25/20 09:00 09:07 09:15 09:30 Temp 99.1 99.1 99.1 Pulse 86 91 86 89 Resp B/P (MAP) 121/62 (81) 112/53 (72) 114/66 (82) 112/52 (72) 110/52 (71) Pulse Ox 98 97 99 99 09/25/20 09/25/20 09/25/20 09/25/20 09:45 10:00 10:15 10:30 Temp 99.1 99.5 99.5 99.9 Pulse 92 96 98 99 Resp B/P (MAP) 107/51 (69) 127/74 (91) 110/54 (72) 110/63 (79) 124/58 (80) 101/51 (68) Pulse Ox 100 98 98 99 09/25/20 09/25/20 09/25/20 09/25/20 10:45 10:52 11:00 11:00 Temp 99.9 100.2 100.2 Pulse 98 100 99 99 Resp B/P (MAP) 98/50 (66) 110/63 (79) 110/63 (79) 95/50 (65) 95/50 (65) Pulse Ox 98 99 99 99 FiO2 85 09/25/20 09/25/20 09/25/20 09/25/20 11:15 11:30 11:45 12:00 Temp 100.0 99.9 99.7 99.7 Pulse 100 100 98 97 Resp B/P (MAP) 98/52 (67) 111/55 (73) 87/49 (62) 110/57 (74) 90/50 (63) 89/50 (63) Pulse Ox 99 99 99 99 09/25/20 09/25/20 09/25/20 09/25/20 12:00 12:15 12:30 12:45 Temp 99.5 99.3 99.1 Pulse 85 97 96 95 Resp B/P (MAP) 93/51 (65) 122/62 (82) 96/54 (68) 94/53 (67) Pulse Ox 99 99 99 100 FiO2 85 09/25/20 09/25/20 09/25/20 09/25/20 13:00 13:15 13:30 13:45 Temp 99.0 98.8 98.6 98.6 Pulse 98 99 98 103 Resp B/P (MAP) 127/69 (88) 119/63 (81) 123/71 (88) 139/68 (91) 118/62 (80) 111/60 (77) Pulse Ox 99 99 99 97 09/25/20 09/25/20 09/25/20 09/25/20 14:00 14:15 14:30 14:35 Temp 98.8 98.8 99.0 Pulse 101 101 100 98 Resp 14 18 22 26 B/P (MAP) 117/73 (88) 131/68 (89) 133/72 (92) 131/67 (88) 120/64 (82) Pulse Ox 98 99 100 100 FiO2 80 09/25/20 09/25/20 09/25/20 09/25/20 14:45 15:00 15:15 15:30 Temp 99.0 98.8 98.8 98.8 Pulse 98 96 94 95 Resp 15 14 18 14 B/P (MAP) 117/63 (81) 118/67 (84) 115/63 (80) 127/73 (91) 119/65 (83) 127/69 (88) Pulse Ox 100 100 100 100 09/25/20 15:35 Pulse Resp Pulse Ox O2 Delivery LABS LAB RESULTS Laboratory Tests Test 09/03/20 18:04 09/03/20 18:37 09/03/20 21:02 09/04/20 04:47 Bedside Glucose 104 164 Nasal Adenovirus (PCR) NotDetected Nasal Coronavirus Type 229E (PCR) NotDetected Nasal Coronavirus Type HKU1 (PCR) NotDetected Nasal Coronavirus Type NL63 (PCR) NotDetected Nasal Coronavirus Type OC43 (PCR) NotDetected Nasal Enterovirus/Rhinovirus (PCR) NotDetected Nasal Influenza Type A (H1) (PCR) NotDetected Nasal Influenza Type A (H3) (PCR) NotDetected Nasal Swab Influenza Virus B (PCR) NotDetected Nasal Parainfluenza Type 1 (PCR) NotDetected Nasal Parainfluenza Type 2 (PCR) NotDetected Nasal Parainfluenza Type 3 (PCR) NotDetected Nasal Parainfluenza Type 4 (PCR) NotDetected Nasal Resp Syncytial Virus (PCR) NotDetected Nasal Bordetella pertussis DNA (PCR NotDetected Nasal Chlamydophila pneumoniae (PCR NotDetected Nasal Human Metapneumovirus (PCR) NotDetected Nasal Mycoplasma pneumoniae (PCR) NotDetected Nasal SARS-CoV-2 (PCR) NotDetected Influenza Type A (H1N1/09) (PCR) NotDetected White Blood Count 8.1 10^3/uL Red Blood Count 4.89 10^6/uL Hemoglobin 14.2 g/dL Hematocrit 40.7 % Mean Corpuscular Volume 83.2 fL Mean Corpuscular Hemoglobin 29.0 pg Mean Corpuscular Hemoglobin Concent 34.9 g/dL Red Cell Distribution Width 12.0 % Platelet Count 185 10^3/uL Mean Platelet Volume 9.6 fL Neutrophils (%) (Auto) 83.5 % Lymphocytes (%) (Auto) 9.7 % Monocytes (%) (Auto) 6.0 % Neutrophils # (Auto) 6.8 10^3/uL Lymphocytes # (Auto) 0.79 10^3/uL1 Monocytes # (Auto) 0.5 10^3/uL Absolute Immature Granulocyte (auto 0.05 10^3 u/L Absolute Eosinophils (auto) 0.0 10^3/uL Immature Granulocytes % 0.60 % Eosinophils % 0.0 % Basophils % 0.2 % Basophils # 0.0 10^3/uL Sodium Level 132 mmol/L Potassium Level 3.6 mmol/L Chloride Level 97.0 mmol/L Carbon Dioxide Level 26.0 mmol/L Anion Gap 12.6 Blood Urea Nitrogen 21 mg/dL Creatinine 1.18 mg/dL Estimated GFR () 75.2 Est GFR (CKD-EPI)(Non-Afr [place]e) 62.1 BUN/Creatinine Ratio 17.0 Glucose Level 118 mg/dL Hemoglobin A1c 8.0 % Calcium Level 8.3 mg/dL Total Bilirubin 0.7 mg/dL Aspartate Amino Transf (AST/SGOT) 55 U/L Alanine Aminotransferase (ALT/SGPT) 37 U/L Alkaline Phosphatase 40 U/L Total Protein 6.5 g/dL Albumin 2.3 g/dL Globulin 4.2 Albumin/Globulin Ratio 0.547 Triglycerides Level 65 mg/dL Cholesterol Level 76 mg/dL LDL Cholesterol, Calculated 26.0 VLDL Cholesterol, Calculated 13.0 HDL Cholesterol 37 mg/dL Cholesterol Ratio (LDL/HDL) 0.7 Cholesterol/HDL Ratio [id number] Test 09/04/20 05:59 09/04/20 07:15 09/04/20 11:37 09/04/20 12:22 Bedside Glucose 120 123 159 D-Dimer 1.85 mg/L Troponin I < 0.02 ng/mL Pro-B-Type Natriuretic Peptide 97 pg/mL Test 09/04/20 16:36 09/04/20 20:39 1/5/21 20:54 09/05/20 00:10 Bedside Glucose 131 158 Procalcitonin 0.74 ng/mL Yeast/Fungal Identification Test 09/05/20 04:05 09/05/20 05:40 09/05/20 08:09 09/05/20 09:30 White Blood Count 8.7 10^3/uL Red Blood Count 4.49 10^6/uL Hemoglobin 13.2 g/dL Hematocrit 38.0 % Mean Corpuscular Volume 84.6 fL Mean Corpuscular Hemoglobin 29.4 pg Mean Corpuscular Hemoglobin Concent 34.7 g/dL Red Cell Distribution Width 12.0 % Platelet Count 226 10^3/uL Mean Platelet Volume 9.6 fL Neutrophils (%) (Auto) 83.5 % Lymphocytes (%) (Auto) 10.2 % Monocytes (%) (Auto) 5.5 % Neutrophils # (Auto) 7.3 10^3/uL Lymphocytes # (Auto) 0.89 10^3/uL1 Monocytes # (Auto) 0.5 10^3/uL Absolute Immature Granulocyte (auto 0.05 10^3 u/L Absolute Eosinophils (auto) 0.0 10^3/uL Immature Granulocytes % 0.60 % Eosinophils % 0.1 % Basophils % 0.1 % Basophils # 0.0 10^3/uL Sodium Level 136 mmol/L Potassium Level 3.5 mmol/L Chloride Level 103.0 mmol/L Carbon Dioxide Level 24.3 mmol/L Anion Gap 12.2 Blood Urea Nitrogen 20 mg/dL Creatinine 1.01 mg/dL Estimated GFR () 90.0 Est GFR (CKD-EPI)(Non-Afr [place]e) 74.4 BUN/Creatinine Ratio 19.0 Glucose Level 104 mg/dL Calcium Level 8.1 mg/dL Phosphorus Level 2.5 mg/dL Magnesium Level 2.2 mg/dL Total Bilirubin 0.5 mg/dL Aspartate Amino Transf (AST/SGOT) 46 U/L Alanine Aminotransferase (ALT/SGPT) 29 U/L Alkaline Phosphatase 38 U/L Total Protein 6.1 g/dL Albumin 2.1 g/dL Globulin 4.0 Albumin/Globulin Ratio 0.525 Bedside Glucose 99 95 Nasal Adenovirus (PCR) NotDetected Nasal Coronavirus Type 229E (PCR) NotDetected Nasal Coronavirus Type HKU1 (PCR) NotDetected Nasal Coronavirus Type NL63 (PCR) NotDetected Nasal Coronavirus Type OC43 (PCR) NotDetected Nasal Enterovirus/Rhinovirus (PCR) NotDetected Nasal Influenza Type A (H1) (PCR) NotDetected Nasal Influenza Type A (H3) (PCR) NotDetected Nasal Swab Influenza Virus B (PCR) NotDetected Nasal Parainfluenza Type 1 (PCR) NotDetected Nasal Parainfluenza Type 2 (PCR) NotDetected Nasal Parainfluenza Type 3 (PCR) NotDetected Nasal Parainfluenza Type 4 (PCR) NotDetected Nasal Resp Syncytial Virus (PCR) NotDetected Nasal Bordetella pertussis DNA (PCR NotDetected Nasal Chlamydophila pneumoniae (PCR NotDetected Nasal Human Metapneumovirus (PCR) NotDetected Nasal Mycoplasma pneumoniae (PCR) NotDetected Nasal SARS-CoV-2 (PCR) DETECTED Influenza Type A (H1N1/09) (PCR) NotDetected Test 09/05/20 10:24 09/05/20 12:44 09/05/20 17:15 09/05/20 19:49 Erythrocyte Sedimentation Rate 78 mm/hr C-Reactive Protein 13.99 mg/dL Anti-Nuclear FA Antibody Screen Negative Anti-Nuclear Ab Homogeneous Pattern Anti-Nuclear Ab Nucleolar Pattern Anti-Nuclear Ab Speckled Pattern Anti-Nuclear Ab Centromere Pattern Anti-Nuclear Antibody Comment Cytoplasmic ANCA (c-ANCA) Antibody <1:20 titer Atypical p-ANCA <1:20 titer Perinuclear ANCA (p-ANCA) Antibody <1:20 titer HIV-1 Antibody NON-REACTIVE HIV-2 Antibody NON-REACTIVE Bedside Glucose 88 154 141 Test 09/06/20 04:09 09/06/20 05:29 09/06/20 11:39 09/06/20 16:09 White Blood Count 7.7 10^3/uL Red Blood Count 4.20 10^6/uL Hemoglobin 12.5 g/dL Hematocrit 35.4 % Mean Corpuscular Volume 84.3 fL Mean Corpuscular Hemoglobin 29.8 pg Mean Corpuscular Hemoglobin Concent 35.3 g/dL Red Cell Distribution Width 11.9 % Platelet Count 208 10^3/uL Mean Platelet Volume 10.4 fL Neutrophils (%) (Auto) 82.7 % Lymphocytes (%) (Auto) 8.5 % Monocytes (%) (Auto) 7.8 % Neutrophils # (Auto) 6.3 10^3/uL Lymphocytes # (Auto) 0.65 10^3/uL1 Monocytes # (Auto) 0.6 10^3/uL Absolute Immature Granulocyte (auto 0.04 10^3 u/L Absolute Eosinophils (auto) 0.0 10^3/uL Immature Granulocytes % 0.50 % Eosinophils % 0.1 % Basophils % 0.4 % Basophils # 0.0 10^3/uL Sodium Level 137 mmol/L Potassium Level 3.5 mmol/L Chloride Level 104.0 mmol/L Carbon Dioxide Level 23.9 mmol/L Anion Gap 12.6 Blood Urea Nitrogen 17 mg/dL Creatinine 0.94 mg/dL Estimated GFR () 97.8 Est GFR (CKD-EPI)(Non-Afr [place]e) 80.8 BUN/Creatinine Ratio 18.0 Glucose Level 181 mg/dL Calcium Level 8.0 mg/dL Phosphorus Level 3.2 mg/dL Magnesium Level 2.2 mg/dL Total Bilirubin 0.5 mg/dL Aspartate Amino Transf (AST/SGOT) 45 U/L Alanine Aminotransferase (ALT/SGPT) 28 U/L Alkaline Phosphatase 38 U/L Total Protein 5.9 g/dL Albumin 1.8 g/dL Globulin 4.1 Albumin/Globulin Ratio 0.439 Bedside Glucose 166 133 192 Test 09/06/20 19:56 09/07/20 05:22 09/07/20 07:46 09/07/20 10:47 Bedside Glucose 190 181 222 238 Test 09/07/20 17:34 09/07/20 17:36 09/07/20 18:20 09/07/20 18:59 Bedside Glucose 220 236 Blood Gas Sample Site RR Blood Gas pH 7.403 Blood Gas PCO2 30.6 mmHg Blood Gas PO2 62.4 mmHg Blood Gas HCO3 18.7 mmol/L Blood Gas Base Excess -4.8 mmol/L Abdi Test POSITIVE Arterial Blood Oxygen Saturation 92.1 % Deoxyhemoglobin 7.8 % Carboxyhemoglobin 0.7 % Methemoglobin 0.2 % Total Hemoglobin 14.6 % Total Oxygen Concentration 18.7 % Blood Gas Temperature 37.0 Oxygen Delivery Method (LAB) NON-REBREATHER MASK FiO2 100 % Total Carbon Dioxide 19.6 mmol/L Hemoglobin 14.0 g/dL Hematocrit 40.0 % Platelet Count 386 10^3/uL Prothrombin Time 11.2 SEC Prothrombin Time INR (Non-Therap) 1.1 Fibrinogen > 450 mg/dL Test 09/07/20 20:18 09/08/20 05:14 09/08/20 05:20 09/08/20 06:57 Bedside Glucose 226 204 White Blood Count 11.7 10^3/uL Red Blood Count 4.60 10^6/uL Hemoglobin 13.4 g/dL Hematocrit 38.5 % Mean Corpuscular Volume 83.7 fL Mean Corpuscular Hemoglobin 29.1 pg Mean Corpuscular Hemoglobin Concent 34.8 g/dL Red Cell Distribution Width 12.0 % Platelet Count 360 10^3/uL Mean Platelet Volume 9.7 fL Neutrophils (%) (Auto) 89.4 % Lymphocytes (%) (Auto) 4.8 % Monocytes (%) (Auto) 4.9 % Neutrophils # (Auto) 10.5 10^3/uL Lymphocytes # (Auto) 0.56 10^3/uL1 Monocytes # (Auto) 0.6 10^3/uL Absolute Immature Granulocyte (auto 0.08 10^3 u/L Absolute Eosinophils (auto) 0.0 10^3/uL Immature Granulocytes % 0.70 % Eosinophils % 0.0 % Basophils % 0.2 % Basophils # 0.0 10^3/uL D-Dimer 4.40 mg/L Sodium Level 139 mmol/L Potassium Level 3.4 mmol/L Chloride Level 108.0 mmol/L Carbon Dioxide Level 21.4 mmol/L Anion Gap 13.0 Blood Urea Nitrogen 22 mg/dL Creatinine 0.87 mg/dL Estimated GFR () 106.9 Est GFR (CKD-EPI)(Non-Afr [place]e) 88.3 BUN/Creatinine Ratio 25.0 Glucose Level 214 mg/dL Calcium Level 8.1 mg/dL Phosphorus Level 2.2 mg/dL Magnesium Level 2.2 mg/dL Ferritin 1364 ng/mL Total Bilirubin 0.3 mg/dL Aspartate Amino Transf (AST/SGOT) 44 U/L Alanine Aminotransferase (ALT/SGPT) 23 U/L Alkaline Phosphatase 45 U/L Lactate Dehydrogenase 300 U/L Total Creatine Kinase 48 U/L C-Reactive Protein 3.22 mg/dL Total Protein 5.9 g/dL Albumin 2.0 g/dL Globulin 3.9 Albumin/Globulin Ratio 0.512 Procalcitonin 0.29 ng/mL Segmented Neutrophils 95 % Lymphocytes 4 % Monocytes 1 % Platelet Estimate ADEQUATE Platelet Morphology NORMAL Test 09/08/20 07:39 09/08/20 11:31 09/08/20 16:25 09/08/20 20:15 Bedside Glucose 223 208 183 217 Test 09/09/20 05:05 09/09/20 06:31 09/09/20 07:23 09/09/20 07:39 Bedside Glucose 169 231 White Blood Count 11.5 10^3/uL Red Blood Count 4.52 10^6/uL Hemoglobin 13.1 g/dL Hematocrit 37.4 % Mean Corpuscular Volume 82.7 fL Mean Corpuscular Hemoglobin 29.0 pg Mean Corpuscular Hemoglobin Concent 35.0 g/dL Red Cell Distribution Width 12.0 % Platelet Count 367 10^3/uL Mean Platelet Volume 9.2 fL Neutrophils (%) (Auto) 87.0 % Lymphocytes (%) (Auto) 5.3 % Monocytes (%) (Auto) 7.0 % Neutrophils # (Auto) 10.0 10^3/uL Lymphocytes # (Auto) 0.61 10^3/uL1 Monocytes # (Auto) 0.8 10^3/uL Absolute Immature Granulocyte (auto 0.07 10^3 u/L Absolute Eosinophils (auto) 0.0 10^3/uL Immature Granulocytes % 0.60 % Eosinophils % 0.0 % Basophils % 0.1 % Basophils # 0.0 10^3/uL Sodium Level 141 mmol/L Potassium Level 3.9 mmol/L Chloride Level 109.0 mmol/L Carbon Dioxide Level 22.4 mmol/L Anion Gap 13.5 Blood Urea Nitrogen 22 mg/dL Creatinine 0.81 mg/dL Estimated GFR () 116.1 Est GFR (CKD-EPI)(Non-Afr [place]e) 95.9 BUN/Creatinine Ratio 27.0 Glucose Level 187 mg/dL Calcium Level 7.9 mg/dL Phosphorus Level 2.7 mg/dL Magnesium Level 2.0 mg/dL Total Bilirubin 0.4 mg/dL Aspartate Amino Transf (AST/SGOT) 32 U/L Alanine Aminotransferase (ALT/SGPT) 29 U/L Alkaline Phosphatase 44 U/L Total Protein 5.5 g/dL Albumin 2.0 g/dL Globulin 3.5 Albumin/Globulin Ratio 0.571 Segmented Neutrophils 91 % Lymphocytes 5 % Monocytes 4 % Platelet Estimate ADEQUATE Platelet Morphology NORMAL Test 09/09/20 11:15 09/09/20 16:50 09/09/20 19:54 09/10/20 04:26 Bedside Glucose 236 192 219 White Blood Count 11.8 10^3/uL Red Blood Count 4.77 10^6/uL Hemoglobin 13.8 g/dL Hematocrit 39.8 % Mean Corpuscular Volume 83.4 fL Mean Corpuscular Hemoglobin 28.9 pg Mean Corpuscular Hemoglobin Concent 34.7 g/dL Red Cell Distribution Width 12.3 % Platelet Count 361 10^3/uL Mean Platelet Volume 9.2 fL Neutrophils (%) (Auto) 84.0 % Lymphocytes (%) (Auto) 9.0 % Monocytes (%) (Auto) 4.8 % Neutrophils # (Auto) 9.9 10^3/uL Lymphocytes # (Auto) 1.06 10^3/uL1 Monocytes # (Auto) 0.6 10^3/uL Absolute Immature Granulocyte (auto 0.23 10^3 u/L Absolute Eosinophils (auto) 0.0 10^3/uL Immature Granulocytes % 2.00 % Eosinophils % 0.1 % Basophils % 0.1 % Basophils # 0.0 10^3/uL D-Dimer 8.09 mg/L Sodium Level 140 mmol/L Potassium Level 3.7 mmol/L Chloride Level 106.0 mmol/L Carbon Dioxide Level 27.2 mmol/L Anion Gap 10.5 Blood Urea Nitrogen 19 mg/dL Creatinine 0.96 mg/dL Estimated GFR () 95.4 Est GFR (CKD-EPI)(Non-Afr [place]e) 78.9 BUN/Creatinine Ratio 19.0 Glucose Level 100 mg/dL Calcium Level 7.9 mg/dL Phosphorus Level 2.4 mg/dL Magnesium Level 1.8 mg/dL Ferritin 1073 ng/mL Total Bilirubin 0.7 mg/dL Aspartate Amino Transf (AST/SGOT) 27 U/L Alanine Aminotransferase (ALT/SGPT) 29 U/L Alkaline Phosphatase 58 U/L Lactate Dehydrogenase 295 U/L Total Creatine Kinase 41 U/L C-Reactive Protein 3.25 mg/dL Total Protein 5.7 g/dL Albumin 2.0 g/dL Globulin 3.7 Albumin/Globulin Ratio 0.540 Procalcitonin 0.10 ng/mL Test 09/10/20 04:54 09/10/20 07:10 09/10/20 11:33 09/10/20 16:46 Bedside Glucose 93 134 173 178 Test 09/10/20 19:51 09/11/20 01:56 09/11/20 02:03 09/11/20 05:13 Bedside Glucose 169 159 145 Blood Gas Sample Site LB Blood Gas pH 7.398 Blood Gas PCO2 31.4 mmHg Blood Gas PO2 54.5 mmHg Blood Gas HCO3 18.9 mmol/L Blood Gas Base Excess -4.8 mmol/L Abdi Test POSITIVE Arterial Blood Oxygen Saturation 87.1 % Deoxyhemoglobin 12.9 % Carboxyhemoglobin 0.3 % Methemoglobin 0.0 % Total Hemoglobin 13.4 % Total Oxygen Concentration 16.3 % Blood Gas Temperature 37 Oxygen Delivery Method (LAB) NON-REBREATHER MASK FiO2 100 % Total Carbon Dioxide 19.9 mmol/L Test 09/11/20 05:14 09/11/20 05:41 09/11/20 07:35 09/11/20 07:50 White Blood Count 11.5 10^3/uL Red Blood Count 4.66 10^6/uL Hemoglobin 13.4 g/dL Hematocrit 39.1 % Mean Corpuscular Volume 83.9 fL Mean Corpuscular Hemoglobin 28.8 pg Mean Corpuscular Hemoglobin Concent 34.3 g/dL Red Cell Distribution Width 12.2 % Platelet Count 296 10^3/uL Mean Platelet Volume 9.2 fL Neutrophils (%) (Auto) 87.0 % Lymphocytes (%) (Auto) 5.9 % Monocytes (%) (Auto) 5.0 % Neutrophils # (Auto) 10.0 10^3/uL Lymphocytes # (Auto) 0.68 10^3/uL1 Monocytes # (Auto) 0.6 10^3/uL Absolute Immature Granulocyte (auto 0.23 10^3 u/L Absolute Eosinophils (auto) 0.0 10^3/uL Immature Granulocytes % 2.00 % Eosinophils % 0.0 % Basophils % 0.1 % Basophils # 0.0 10^3/uL Sodium Level 139 mmol/L Potassium Level 3.9 mmol/L Chloride Level 106.0 mmol/L Carbon Dioxide Level 23.2 mmol/L Anion Gap 13.7 Blood Urea Nitrogen 22 mg/dL Creatinine 0.88 mg/dL Estimated GFR () 105.5 Est GFR (CKD-EPI)(Non-Afr [place]e) 87.2 BUN/Creatinine Ratio 25.0 Glucose Level 151 mg/dL Calcium Level 8.3 mg/dL Phosphorus Level 3.1 mg/dL Magnesium Level 2.3 mg/dL Total Bilirubin 0.7 mg/dL Aspartate Amino Transf (AST/SGOT) 27 U/L Alanine Aminotransferase (ALT/SGPT) 23 U/L Alkaline Phosphatase 71 U/L Total Protein 5.7 g/dL Albumin 2.0 g/dL Globulin 3.7 Albumin/Globulin Ratio 0.540 Blood Gas Sample Site RT RADIAL ARTERY RR Blood Gas pH 7.405 7.398 Blood Gas PCO2 35.2 mmHg 36.1 mmHg Blood Gas PO2 53.5 mmHg 52.5 mmHg Blood Gas HCO3 21.6 mmol/L 21.8 mmol/L Blood Gas Base Excess -2.5 mmol/L -2.5 mmol/L Abdi Test POSITIVE POSITIVE Arterial Blood Oxygen Saturation 87.9 % 86.0 % Deoxyhemoglobin 12.1 % 13.9 % Carboxyhemoglobin 0 % 0.6 % Methemoglobin 0.1 % 0.3 % Total Hemoglobin 14.0 % 13.9 % Total Oxygen Concentration 17.3 % 16.6 % Blood Gas Temperature 37 37 Oxygen Delivery Method (LAB) NON-REBREATHER MASK NON-REBREATHER MASK FiO2 100 % 100 % Total Carbon Dioxide 22.6 mmol/L 22.9 mmol/L Bedside Glucose 133 Test 09/11/20 11:42 09/11/20 16:15 09/11/20 20:50 09/12/20 04:11 Bedside Glucose 185 175 201 White Blood Count 16.3 10^3/uL Red Blood Count 4.45 10^6/uL Hemoglobin 13.2 g/dL Hematocrit 37.1 % Mean Corpuscular Volume 83.4 fL Mean Corpuscular Hemoglobin 29.7 pg Mean Corpuscular Hemoglobin Concent 35.6 g/dL Red Cell Distribution Width 12.3 % Platelet Count 316 10^3/uL Mean Platelet Volume 9.2 fL Neutrophils (%) (Auto) 89.5 % Lymphocytes (%) (Auto) 3.9 % Monocytes (%) (Auto) 5.0 % Neutrophils # (Auto) 14.6 10^3/uL Lymphocytes # (Auto) 0.64 10^3/uL1 Monocytes # (Auto) 0.8 10^3/uL Absolute Immature Granulocyte (auto 0.24 10^3 u/L Absolute Eosinophils (auto) 0.0 10^3/uL Immature Granulocytes % 1.50 % Eosinophils % 0.0 % Basophils % 0.1 % Basophils # 0.0 10^3/uL Sodium Level 139 mmol/L Potassium Level 4.1 mmol/L Chloride Level 105.0 mmol/L Carbon Dioxide Level 26.4 mmol/L Anion Gap 11.7 Blood Urea Nitrogen 24 mg/dL Creatinine 0.82 mg/dL Estimated GFR () 114.5 Est GFR (CKD-EPI)(Non-Afr [place]e) 94.6 BUN/Creatinine Ratio 29.0 Glucose Level 144 mg/dL Calcium Level 8.3 mg/dL Total Bilirubin 0.6 mg/dL Aspartate Amino Transf (AST/SGOT) 24 U/L Alanine Aminotransferase (ALT/SGPT) 19 U/L Alkaline Phosphatase 69 U/L Total Protein 5.6 g/dL Albumin 2.0 g/dL Globulin 3.6 Albumin/Globulin Ratio 0.555 Test 09/12/20 05:21 09/12/20 07:14 09/12/20 11:45 09/12/20 15:44 Bedside Glucose 132 173 262 Blood Gas Sample Site RR Blood Gas pH 7.429 Blood Gas PCO2 33.6 mmHg Blood Gas PO2 47.2 mmHg Blood Gas HCO3 21.8 mmol/L Blood Gas Base Excess -1.7 mmol/L Abdi Test POSITIVE Arterial Blood Oxygen Saturation 82.7 % Deoxyhemoglobin 17.1 % Carboxyhemoglobin 0.9 % Methemoglobin 0.3 % Total Hemoglobin 15.0 % Total Oxygen Concentration 17.2 % Blood Gas Temperature 37 Oxygen Delivery Method (LAB) NON-REBREATHER MASK FiO2 100 % Total Carbon Dioxide 22.8 mmol/L Test 09/12/20 21:13 09/13/20 04:13 09/13/20 07:45 09/13/20 12:57 Bedside Glucose 202 195 White Blood Count 13.7 10^3/uL Red Blood Count 4.63 10^6/uL Hemoglobin 13.4 g/dL Hematocrit 38.7 % Mean Corpuscular Volume 83.6 fL Mean Corpuscular Hemoglobin 28.9 pg Mean Corpuscular Hemoglobin Concent 34.6 g/dL Red Cell Distribution Width 12.4 % Platelet Count 132 10^3/uL Mean Platelet Volume 10.4 fL Neutrophils (%) (Auto) 89.9 % Lymphocytes (%) (Auto) 4.0 % Monocytes (%) (Auto) 4.7 % Neutrophils # (Auto) 12.3 10^3/uL Lymphocytes # (Auto) 0.55 10^3/uL1 Monocytes # (Auto) 0.6 10^3/uL Absolute Immature Granulocyte (auto 0.18 10^3 u/L Absolute Eosinophils (auto) 0.0 10^3/uL Immature Granulocytes % 1.30 % Eosinophils % 0.0 % Basophils % 0.1 % Basophils # 0.0 10^3/uL D-Dimer 6.10 mg/L Sodium Level 134 mmol/L Potassium Level 3.9 mmol/L Chloride Level 101.0 mmol/L Carbon Dioxide Level 24.6 mmol/L Anion Gap 12.3 Blood Urea Nitrogen 21 mg/dL Creatinine 0.83 mg/dL Estimated GFR () 112.9 Est GFR (CKD-EPI)(Non-Afr [place]e) 93.3 BUN/Creatinine Ratio 25.0 Glucose Level 163 mg/dL Calcium Level 8.1 mg/dL Total Bilirubin 0.6 mg/dL Aspartate Amino Transf (AST/SGOT) 25 U/L Alanine Aminotransferase (ALT/SGPT) 18 U/L Alkaline Phosphatase 65 U/L Ammonia 32 umol/L Pro-B-Type Natriuretic Peptide 1380 pg/mL Total Protein 5.6 g/dL Albumin 1.9 g/dL Globulin 3.7 Albumin/Globulin Ratio 0.513 Blood Gas Sample Site RR Blood Gas pH 7.410 Blood Gas PCO2 47.1 mmHg Blood Gas PO2 55.4 mmHg Blood Gas HCO3 25.9 mmol/L Blood Gas Base Excess 1.1 mmol/L Abdi Test POSITIVE Arterial Blood Oxygen Saturation 87.4 % Deoxyhemoglobin 12.5 % Carboxyhemoglobin 0.8 % Methemoglobin 0.2 % Total Hemoglobin 13.9 % Total Oxygen Concentration 16.9 % Oxygen Delivery Method (LAB) BIPAP Blood Gas Vent Mode AVAPS Blood Gas Vent Rate 14 FiO2 100 % Blood Gas Tidal Volume 400 ML Blood Gas PEEP 8 CMH2O Total Carbon Dioxide 27.2 mmol/L Test 09/13/20 13:06 09/13/20 14:10 09/13/20 16:18 09/13/20 17:19 Blood Gas Sample Site RR Blood Gas pH 7.388 Blood Gas PCO2 52.0 mmHg Blood Gas PO2 52.0 mmHg Blood Gas HCO3 22.7 mmol/L Blood Gas Base Excess -1.9 mmol/L Abdi Test POSITIVE Arterial Blood Oxygen Saturation 83.6 % Carboxyhemoglobin 0 % Methemoglobin 0.2 % Total Hemoglobin 14.7 % Blood Gas Temperature 37 Oxygen Delivery Method (LAB) VENT Blood Gas Vent Mode ACVC Blood Gas Vent Rate 25 FiO2 100 % Blood Gas Tidal Volume 400 ML Blood Gas PEEP 6 CMH2O Total Carbon Dioxide 23.9 mmol/L Urine Collection Type UNKNOWN Urine Color YELLOW Urine Appearance CLEAR Urine Bilirubin NEGATIVE MG/DL Urine Ketones NEGATIVE Urine Specific Hayes 1.010 Urine pH 6.5 Urine Protein NEGATIVE Urine Urobilinogen NORMAL Urine Nitrate NEGATIVE Urine Leukocyte Esterase NEGATIVE Urine Blood NEGATIVE Urine Glucose 100 Procalcitonin 0.26 ng/mL Bedside Glucose 243 Test 09/13/20 23:38 09/14/20 03:53 09/14/20 05:21 09/14/20 08:30 Bedside Glucose 137 184 White Blood Count 15.2 10^3/uL Red Blood Count 4.89 10^6/uL Hemoglobin 14.3 g/dL Hematocrit 41.5 % Mean Corpuscular Volume 84.9 fL Mean Corpuscular Hemoglobin 29.2 pg Mean Corpuscular Hemoglobin Concent 34.5 g/dL Red Cell Distribution Width 12.9 % Platelet Count 260 10^3/uL Mean Platelet Volume 10.3 fL Neutrophils (%) (Auto) 92.6 % Lymphocytes (%) (Auto) 3.0 % Monocytes (%) (Auto) 2.5 % Neutrophils # (Auto) 14.1 10^3/uL Lymphocytes # (Auto) 0.45 10^3/uL1 Monocytes # (Auto) 0.4 10^3/uL Absolute Immature Granulocyte (auto 0.27 10^3 u/L Absolute Eosinophils (auto) 0.0 10^3/uL Immature Granulocytes % 1.80 % Eosinophils % 0.0 % Basophils % 0.1 % Basophils # 0.0 10^3/uL Sodium Level 141 mmol/L Potassium Level 4.6 mmol/L Chloride Level 105.0 mmol/L Carbon Dioxide Level 24.2 mmol/L Anion Gap 16.4 Blood Urea Nitrogen 34 mg/dL Creatinine 1.14 mg/dL Estimated GFR () 78.3 Est GFR (CKD-EPI)(Non-Afr [place]) 64.7 BUN/Creatinine Ratio 29.0 Glucose Level 179 mg/dL Calcium Level 8.2 mg/dL Total Bilirubin 0.6 mg/dL Aspartate Amino Transf (AST/SGOT) 19 U/L Alanine Aminotransferase (ALT/SGPT) 16 U/L Alkaline Phosphatase 61 U/L Total Protein 5.8 g/dL Albumin 2.0 g/dL Globulin 3.8 Albumin/Globulin Ratio 0.526 Blood Gas Sample Site RT RADIAL ARTERY Blood Gas pH 7.377 Blood Gas PCO2 39.9 mmHg Blood Gas PO2 55.2 mmHg Blood Gas HCO3 22.9 mmol/L Blood Gas Base Excess -2.0 mmol/L Abdi Test POSITIVE Arterial Blood Oxygen Saturation 85.5 % Deoxyhemoglobin 14.4 % Carboxyhemoglobin 0.7 % Methemoglobin 0.2 % Total Hemoglobin 15.1 % Total Oxygen Concentration 18.0 % Blood Gas Temperature 37 Oxygen Delivery Method (LAB) VENT Blood Gas Vent Mode ACVC Blood Gas Vent Rate 25 FiO2 100 % Blood Gas Tidal Volume 400 ML Blood Gas PEEP 10 CMH2O Total Carbon Dioxide 24.1 mmol/L Test 09/14/20 12:01 09/14/20 15:20 09/14/20 17:42 09/15/20 00:20 Bedside Glucose 201 232 283 Lactic Acid Level 1.3 mmol/L Test 09/15/20 04:09 09/15/20 05:49 09/15/20 05:50 09/15/20 08:02 White Blood Count 16.8 10^3/uL Red Blood Count 4.60 10^6/uL Hemoglobin 13.4 g/dL Hematocrit 39.6 % Mean Corpuscular Volume 86.1 fL Mean Corpuscular Hemoglobin 29.1 pg Mean Corpuscular Hemoglobin Concent 33.8 g/dL Red Cell Distribution Width 13.1 % Platelet Count 355 10^3/uL Mean Platelet Volume 9.9 fL Neutrophils (%) (Auto) 92.1 % Lymphocytes (%) (Auto) 2.5 % Monocytes (%) (Auto) 3.7 % Neutrophils # (Auto) 15.5 10^3/uL Lymphocytes # (Auto) 0.42 10^3/uL1 Monocytes # (Auto) 0.6 10^3/uL Absolute Immature Granulocyte (auto 0.28 10^3 u/L Absolute Eosinophils (auto) 0.0 10^3/uL Immature Granulocytes % 1.70 % Eosinophils % 0.0 % Basophils % 0.0 % Basophils # 0.0 10^3/uL Sodium Level 139 mmol/L Potassium Level 4.1 mmol/L Chloride Level 105.0 mmol/L Carbon Dioxide Level 23.9 mmol/L Anion Gap 14.2 Blood Urea Nitrogen 52 mg/dL Creatinine 1.34 mg/dL Estimated GFR () 64.9 Est GFR (CKD-EPI)(Non-Afr [place]e) 53.7 BUN/Creatinine Ratio 38.0 Glucose Level 305 mg/dL Calcium Level 7.1 mg/dL Total Bilirubin 0.4 mg/dL Aspartate Amino Transf (AST/SGOT) 17 U/L Alanine Aminotransferase (ALT/SGPT) 17 U/L Alkaline Phosphatase 65 U/L C-Reactive Protein 3.29 mg/dL Total Protein 5.6 g/dL Albumin 2.0 g/dL Globulin 3.6 Albumin/Globulin Ratio 0.555 Bedside Glucose 276 Segmented Neutrophils 98 % Lymphocytes 1 % Monocytes 1 % Platelet Estimate ADEQUATE Platelet Morphology NORMAL Blood Gas Sample Site ART LINE Blood Gas pH 7.335 Blood Gas PCO2 42.5 mmHg Blood Gas PO2 72.2 mmHg Blood Gas HCO3 22.2 mmol/L Blood Gas Base Excess -3.6 mmol/L Abdi Test POSITIVE Arterial Blood Oxygen Saturation 93.1 % Deoxyhemoglobin 6.8 % Carboxyhemoglobin 0.6 % Methemoglobin 0.3 % Total Hemoglobin 13.6 % Total Oxygen Concentration 17.7 % Blood Gas Temperature 37 Oxygen Delivery Method (LAB) VENT Blood Gas Vent Mode ACVC Blood Gas Vent Rate 25 FiO2 100 % Blood Gas Tidal Volume 400 ML Blood Gas PEEP 12 CMH2O Total Carbon Dioxide 23.5 mmol/L Test 09/15/20 11:39 09/15/20 15:05 09/15/20 17:08 09/15/20 20:08 Bedside Glucose 294 288 260 Procalcitonin 0.15 ng/mL Test 09/15/20 23:59 09/16/20 04:23 09/16/20 05:22 09/16/20 05:42 Bedside Glucose 284 278 White Blood Count 15.2 10^3/uL Red Blood Count 4.03 10^6/uL Hemoglobin 11.7 g/dL Hematocrit 35.3 % Mean Corpuscular Volume 87.6 fL Mean Corpuscular Hemoglobin 29.0 pg Mean Corpuscular Hemoglobin Concent 33.1 g/dL Red Cell Distribution Width 13.1 % Platelet Count 234 10^3/uL Mean Platelet Volume 10.2 fL Neutrophils (%) (Auto) 94.0 % Lymphocytes (%) (Auto) 1.8 % Monocytes (%) (Auto) 3.0 % Neutrophils # (Auto) 14.3 10^3/uL Lymphocytes # (Auto) 0.28 10^3/uL1 Monocytes # (Auto) 0.5 10^3/uL Absolute Immature Granulocyte (auto 0.16 10^3 u/L Absolute Eosinophils (auto) 0.0 10^3/uL Immature Granulocytes % 1.10 % Eosinophils % 0.0 % Basophils % 0.1 % Basophils # 0.0 10^3/uL D-Dimer 1.67 mg/L Sodium Level 140 mmol/L Potassium Level 4.9 mmol/L Chloride Level 107.0 mmol/L Carbon Dioxide Level 24.8 mmol/L Anion Gap 13.1 Blood Urea Nitrogen 50 mg/dL Creatinine 1.14 mg/dL Estimated GFR () 78.3 Est GFR (CKD-EPI)(Non-Afr [place]e) 64.7 BUN/Creatinine Ratio 43.0 Glucose Level 313 mg/dL Calcium Level 7.0 mg/dL Total Bilirubin 0.3 mg/dL Aspartate Amino Transf (AST/SGOT) 16 U/L Alanine Aminotransferase (ALT/SGPT) 16 U/L Alkaline Phosphatase 68 U/L Total Protein 4.9 g/dL Albumin 1.8 g/dL Globulin 3.1 Albumin/Globulin Ratio 0.580 Blood Gas Sample Site ART LINE Blood Gas pH 7.310 Blood Gas PCO2 46.1 mmHg Blood Gas PO2 61.6 mmHg Blood Gas HCO3 22.7 mmol/L Blood Gas Base Excess -3.7 mmol/L Abdi Test N/A Arterial Blood Oxygen Saturation 89.2 % Deoxyhemoglobin 10.7 % Carboxyhemoglobin 0.3 % Methemoglobin 0.3 % Total Hemoglobin 13.4 % Total Oxygen Concentration 16.7 % Blood Gas Temperature 37 Oxygen Delivery Method (LAB) VENT Blood Gas Vent Mode ACVC Blood Gas Vent Rate 25 FiO2 75 % Blood Gas Tidal Volume 400 ML Blood Gas PEEP 10 CMH2O Total Carbon Dioxide 24.1 mmol/L Test 09/16/20 06:16 09/16/20 12:17 09/16/20 13:15 09/16/20 17:13 Segmented Neutrophils 97 % Lymphocytes 1 % Monocytes 2 % Platelet Estimate ADEQUATE Platelet Morphology NORMAL Bedside Glucose 222 170 Procalcitonin 0.05 ng/mL Test 09/16/20 21:21 09/17/20 00:03 09/17/20 03:50 09/17/20 04:10 Bedside Glucose 186 221 235 White Blood Count 17.5 10^3/uL Red Blood Count 4.13 10^6/uL Hemoglobin 11.8 g/dL Hematocrit 36.6 % Mean Corpuscular Volume 88.6 fL Mean Corpuscular Hemoglobin 28.6 pg Mean Corpuscular Hemoglobin Concent 32.2 g/dL Red Cell Distribution Width 13.0 % Platelet Count 217 10^3/uL Mean Platelet Volume 9.7 fL Neutrophils (%) (Auto) 93.7 % Lymphocytes (%) (Auto) 1.3 % Monocytes (%) (Auto) 4.1 % Neutrophils # (Auto) 16.4 10^3/uL Lymphocytes # (Auto) 0.22 10^3/uL1 Monocytes # (Auto) 0.7 10^3/uL Absolute Immature Granulocyte (auto 0.16 10^3 u/L Absolute Eosinophils (auto) 0.0 10^3/uL Immature Granulocytes % 0.90 % Eosinophils % 0.0 % Basophils % 0.0 % Basophils # 0.0 10^3/uL Sodium Level 141 mmol/L Potassium Level 5.2 mmol/L Chloride Level 109.0 mmol/L Carbon Dioxide Level 26.2 mmol/L Anion Gap 11.0 Blood Urea Nitrogen 56 mg/dL Creatinine 1.02 mg/dL Estimated GFR () 89.0 Est GFR (CKD-EPI)(Non-Afr [place]e) 73.5 BUN/Creatinine Ratio 54.0 Glucose Level 242 mg/dL Calcium Level 7.4 mg/dL Total Bilirubin 0.3 mg/dL Aspartate Amino Transf (AST/SGOT) 19 U/L Alanine Aminotransferase (ALT/SGPT) 20 U/L Alkaline Phosphatase 68 U/L Total Protein 4.6 g/dL Albumin 1.9 g/dL Globulin 2.7 Albumin/Globulin Ratio 0.703 Test 09/17/20 04:22 09/17/20 05:51 09/17/20 06:25 09/17/20 09:10 Segmented Neutrophils 96 % Lymphocytes 1 % Monocytes 3 % Platelet Estimate ADEQUATE Platelet Morphology NORMAL Bedside Glucose 244 Blood Gas Sample Site ARTERIAL LINE Blood Gas pH 7.303 Blood Gas PCO2 45.2 mmHg Blood Gas PO2 61.0 mmHg Blood Gas HCO3 21.9 mmol/L Blood Gas Base Excess -4.4 mmol/L Abdi Test N/A Arterial Blood Oxygen Saturation 89.1 % Deoxyhemoglobin 10.8 % Carboxyhemoglobin 0.3 % Methemoglobin 0.3 % Total Hemoglobin 12.6 % Total Oxygen Concentration 15.7 % Blood Gas Temperature 37 Oxygen Delivery Method (LAB) VENT Blood Gas Vent Mode AC Blood Gas Vent Rate 25 FiO2 90 % Blood Gas Tidal Volume 400 ML Blood Gas PEEP 10 CMH2O Total Carbon Dioxide 23.3 mmol/L Ammonia 36 umol/L Test 09/17/20 10:45 09/17/20 16:08 09/17/20 16:41 09/17/20 20:00 Bedside Glucose 218 186 175 Sodium Level 138 mmol/L Potassium Level 5.0 mmol/L Chloride Level 106.0 mmol/L Carbon Dioxide Level 24.6 mmol/L Glucose Level 209 mg/dL Blood Urea Nitrogen 62 mg/dL Creatinine 1.29 mg/dL Calcium Level 7.1 mg/dL Anion Gap 12.4 Estimated GFR () 67.8 Est GFR (CKD-EPI)(Non-Afr [place]e) 56.1 BUN/Creatinine Ratio 48.0 Test 09/17/20 23:51 09/18/20 04:14 09/18/20 05:38 09/18/20 07:47 Bedside Glucose 135 173 White Blood Count 20.4 10^3/uL Red Blood Count 4.32 10^6/uL Hemoglobin 12.5 g/dL Hematocrit 38.3 % Mean Corpuscular Volume 88.7 fL Mean Corpuscular Hemoglobin 28.9 pg Mean Corpuscular Hemoglobin Concent 32.6 g/dL Red Cell Distribution Width 13.2 % Platelet Count 202 10^3/uL Mean Platelet Volume 10.0 fL Neutrophils (%) (Auto) 86.3 % Lymphocytes (%) (Auto) 4.3 % Monocytes (%) (Auto) 5.5 % Neutrophils # (Auto) 17.6 10^3/uL Lymphocytes # (Auto) 0.87 10^3/uL1 Monocytes # (Auto) 1.1 10^3/uL Absolute Immature Granulocyte (auto 0.74 10^3 u/L Absolute Eosinophils (auto) 0.1 10^3/uL Immature Granulocytes % 3.60 % Eosinophils % 0.3 % Basophils % 0.0 % Basophils # 0.0 10^3/uL Sodium Level 141 mmol/L Potassium Level 4.4 mmol/L Chloride Level 107.0 mmol/L Carbon Dioxide Level 25.2 mmol/L Anion Gap 13.2 Blood Urea Nitrogen 62 mg/dL Creatinine 1.21 mg/dL Estimated GFR () 73.1 Est GFR (CKD-EPI)(Non-Afr [place]e) 60.4 BUN/Creatinine Ratio 51.0 Glucose Level 129 mg/dL Calcium Level 7.0 mg/dL Total Bilirubin 0.3 mg/dL Aspartate Amino Transf (AST/SGOT) 20 U/L Alanine Aminotransferase (ALT/SGPT) 24 U/L Alkaline Phosphatase 72 U/L Total Protein 4.9 g/dL Albumin 1.8 g/dL Globulin 3.1 Albumin/Globulin Ratio 0.580 Blood Gas Sample Site ISABELLA Blood Gas pH 7.340 Blood Gas PCO2 47.4 mmHg Blood Gas PO2 76.1 mmHg Blood Gas HCO3 25.0 mmol/L Blood Gas Base Excess -1.1 mmol/L Abdi Test N/A Arterial Blood Oxygen Saturation 94.9 % Deoxyhemoglobin 5.1 % Carboxyhemoglobin 0.5 % Methemoglobin 0.4 % Total Hemoglobin 12.9 % Total Oxygen Concentration 17.1 % Blood Gas Temperature 37 Oxygen Delivery Method (LAB) VENT Blood Gas Vent Mode ACVC Blood Gas Vent Rate 25 FiO2 80 % Blood Gas Tidal Volume 400 ML Blood Gas PEEP 12 CMH2O Total Carbon Dioxide 26.5 mmol/L Test 09/18/20 11:26 09/18/20 18:01 09/18/20 20:17 09/18/20 23:51 Bedside Glucose 158 110 76 71 Test 09/19/20 04:30 09/19/20 05:19 09/19/20 05:21 09/19/20 05:25 White Blood Count 18.2 10^3/uL Red Blood Count 4.22 10^6/uL Hemoglobin 12.5 g/dL Hematocrit 36.8 % Mean Corpuscular Volume 87.2 fL Mean Corpuscular Hemoglobin 29.6 pg Mean Corpuscular Hemoglobin Concent 34.0 g/dL Red Cell Distribution Width 13.2 % Platelet Count 137 10^3/uL Mean Platelet Volume 10.4 fL Neutrophils (%) (Auto) 88.7 % Lymphocytes (%) (Auto) 4.6 % Monocytes (%) (Auto) 2.9 % Neutrophils # (Auto) 16.1 10^3/uL Lymphocytes # (Auto) 0.83 10^3/uL1 Monocytes # (Auto) 0.5 10^3/uL Absolute Immature Granulocyte (auto 0.38 10^3 u/L Absolute Eosinophils (auto) 0.3 10^3/uL Immature Granulocytes % 2.10 % Eosinophils % 1.7 % Basophils % 0.0 % Basophils # 0.0 10^3/uL D-Dimer 1.97 mg/L Sodium Level 140 mmol/L Potassium Level 4.1 mmol/L Chloride Level 106.0 mmol/L Carbon Dioxide Level 30.9 mmol/L Anion Gap 7.2 Blood Urea Nitrogen 40 mg/dL Creatinine 0.64 mg/dL Estimated GFR () 152.3 Est GFR (CKD-EPI)(Non-Afr [place]e) 125.9 BUN/Creatinine Ratio 62.0 Glucose Level 121 mg/dL Calcium Level 7.4 mg/dL Phosphorus Level 3.0 mg/dL Magnesium Level 2.5 mg/dL Ferritin 1809 ng/mL Total Bilirubin 0.5 mg/dL Aspartate Amino Transf (AST/SGOT) 28 U/L Alanine Aminotransferase (ALT/SGPT) 32 U/L Alkaline Phosphatase 67 U/L Lactate Dehydrogenase 213 U/L Total Creatine Kinase 20 U/L C-Reactive Protein 18.69 mg/dL Total Protein 5.0 g/dL Albumin 1.5 g/dL Globulin 3.5 Albumin/Globulin Ratio 0.428 Triglycerides Level 91 mg/dL Procalcitonin 1.44 ng/mL Bedside Glucose 201 68 63 Test 09/19/20 07:31 09/19/20 11:30 09/19/20 16:33 09/20/20 00:03 Blood Gas Sample Site SALOMÓN Blood Gas pH 7.440 Blood Gas PCO2 39.8 mmHg Blood Gas PO2 65.1 mmHg Blood Gas HCO3 26.4 mmol/L Blood Gas Base Excess 2.2 mmol/L Abdi Test N/A Arterial Blood Oxygen Saturation 93.0 % Deoxyhemoglobin 6.9 % Carboxyhemoglobin 0.9 % Methemoglobin 0.4 % Total Hemoglobin 13.1 % Total Oxygen Concentration 16.9 % Blood Gas Temperature 37 Oxygen Delivery Method (LAB) VENT Blood Gas Vent Mode ACVC Blood Gas Vent Rate 30 FiO2 70 % Blood Gas Tidal Volume 400 ML Blood Gas PEEP 10 CMH2O Total Carbon Dioxide 27.6 mmol/L Bedside Glucose 162 165 266 Test 09/20/20 04:13 09/20/20 05:58 09/20/20 07:30 09/20/20 11:38 White Blood Count 16.6 10^3/uL Red Blood Count 4.21 10^6/uL Hemoglobin 12.0 g/dL Hematocrit 37.1 % Mean Corpuscular Volume 88.1 fL Mean Corpuscular Hemoglobin 28.5 pg Mean Corpuscular Hemoglobin Concent 32.3 g/dL Red Cell Distribution Width 13.3 % Platelet Count 127 10^3/uL Mean Platelet Volume 11.0 fL Neutrophils (%) (Auto) 90.4 % Lymphocytes (%) (Auto) 2.8 % Monocytes (%) (Auto) 3.1 % Neutrophils # (Auto) 15.0 10^3/uL Lymphocytes # (Auto) 0.47 10^3/uL1 Monocytes # (Auto) 0.5 10^3/uL Absolute Immature Granulocyte (auto 0.28 10^3 u/L Absolute Eosinophils (auto) 0.3 10^3/uL Immature Granulocytes % 1.70 % Eosinophils % 1.9 % Basophils % 0.1 % Basophils # 0.0 10^3/uL Sodium Level 140 mmol/L Potassium Level 4.1 mmol/L Chloride Level 106.0 mmol/L Carbon Dioxide Level 29.6 mmol/L Anion Gap 8.5 Blood Urea Nitrogen 24 mg/dL Creatinine 0.58 mg/dL Estimated GFR () 170.7 Est GFR (CKD-EPI)(Non-Afr [place]e) 141.1 BUN/Creatinine Ratio 41.0 Glucose Level 110 mg/dL Calcium Level 7.3 mg/dL Total Bilirubin 0.7 mg/dL Aspartate Amino Transf (AST/SGOT) 27 U/L Alanine Aminotransferase (ALT/SGPT) 28 U/L Alkaline Phosphatase 70 U/L Total Protein 4.9 g/dL Albumin 1.4 g/dL Globulin 3.5 Albumin/Globulin Ratio 0.400 Bedside Glucose 72 182 Blood Gas Sample Site ART LINE Blood Gas pH 7.380 Blood Gas PCO2 42.9 mmHg Blood Gas PO2 64.1 mmHg Blood Gas HCO3 24.8 mmol/L Blood Gas Base Excess -0.4 mmol/L Abdi Test N/A Arterial Blood Oxygen Saturation 92.2 % Deoxyhemoglobin 7.8 % Carboxyhemoglobin 0.1 % Methemoglobin 0.3 % Total Hemoglobin 12.5 % Total Oxygen Concentration 16.2 % Blood Gas Temperature 37.0 Oxygen Delivery Method (LAB) VENT Blood Gas Vent Mode ACVC Blood Gas Vent Rate 28 FiO2 70 % Blood Gas Tidal Volume 400 ML Blood Gas PEEP 10 CMH2O Total Carbon Dioxide 26.1 mmol/L Test 09/20/20 16:35 09/20/20 23:51 09/21/20 00:06 09/21/20 04:09 Bedside Glucose 142 349 121 White Blood Count 12.7 10^3/uL Red Blood Count 3.86 10^6/uL Hemoglobin 11.4 g/dL Hematocrit 34.2 % Mean Corpuscular Volume 88.6 fL Mean Corpuscular Hemoglobin 29.5 pg Mean Corpuscular Hemoglobin Concent 33.3 g/dL Red Cell Distribution Width 13.3 % Platelet Count 112 10^3/uL Mean Platelet Volume 10.7 fL Neutrophils (%) (Auto) 87.8 % Lymphocytes (%) (Auto) 3.2 % Monocytes (%) (Auto) 5.2 % Neutrophils # (Auto) 11.2 10^3/uL Lymphocytes # (Auto) 0.41 10^3/uL1 Monocytes # (Auto) 0.7 10^3/uL Absolute Immature Granulocyte (auto 0.17 10^3 u/L Absolute Eosinophils (auto) 0.3 10^3/uL Immature Granulocytes % 1.30 % Eosinophils % 2.4 % Basophils % 0.1 % Basophils # 0.0 10^3/uL Sodium Level 140 mmol/L Potassium Level 3.9 mmol/L Chloride Level 105.0 mmol/L Carbon Dioxide Level 33.2 mmol/L Anion Gap 5.7 Blood Urea Nitrogen 18 mg/dL Creatinine 0.75 mg/dL Estimated GFR () 126.9 Est GFR (CKD-EPI)(Non-Afr [place]e) 104.8 BUN/Creatinine Ratio 24.0 Glucose Level 135 mg/dL Calcium Level 7.1 mg/dL Phosphorus Level 3.0 mg/dL Magnesium Level 2.4 mg/dL Total Bilirubin 0.8 mg/dL Aspartate Amino Transf (AST/SGOT) 41 U/L Alanine Aminotransferase (ALT/SGPT) 32 U/L Alkaline Phosphatase 83 U/L Total Protein 5.0 g/dL Albumin 1.2 g/dL Globulin 3.8 Albumin/Globulin Ratio 0.315 Test 09/21/20 06:03 09/21/20 07:28 09/21/20 11:20 09/21/20 17:17 Bedside Glucose 103 169 186 Blood Gas Sample Site ISABELLA Blood Gas pH 7.407 Blood Gas PCO2 51.4 mmHg Blood Gas PO2 85.8 mmHg Blood Gas HCO3 31.6 mmol/L Blood Gas Base Excess 5.9 mmol/L Abdi Test N/A Arterial Blood Oxygen Saturation 96.1 % Deoxyhemoglobin 3.9 % Carboxyhemoglobin 1.1 % Methemoglobin 0.1 % Total Hemoglobin 11.7 % Total Oxygen Concentration 15.7 % Blood Gas Temperature 37 Oxygen Delivery Method (LAB) VENT Blood Gas Vent Mode ACVC+ Blood Gas Vent Rate 26 FiO2 70 % Blood Gas Tidal Volume 400 ML Blood Gas PEEP 10 CMH2O Total Carbon Dioxide 33.2 mmol/L Test 09/21/20 21:14 09/22/20 00:35 09/22/20 03:56 09/22/20 04:21 Bedside Glucose 137 149 White Blood Count 8.7 10^3/uL Red Blood Count 3.46 10^6/uL Hemoglobin 10.1 g/dL Hematocrit 31.0 % Mean Corpuscular Volume 89.6 fL Mean Corpuscular Hemoglobin 29.2 pg Mean Corpuscular Hemoglobin Concent 32.6 g/dL Red Cell Distribution Width 13.4 % Platelet Count 116 10^3/uL Mean Platelet Volume 10.7 fL Neutrophils (%) (Auto) 82.9 % Lymphocytes (%) (Auto) 6.6 % Monocytes (%) (Auto) 5.9 % Neutrophils # (Auto) 7.2 10^3/uL Lymphocytes # (Auto) 0.58 10^3/uL1 Monocytes # (Auto) 0.5 10^3/uL Absolute Immature Granulocyte (auto 0.13 10^3 u/L Absolute Eosinophils (auto) 0.3 10^3/uL Immature Granulocytes % 1.50 % Eosinophils % 3.0 % Basophils % 0.1 % Basophils # 0.0 10^3/uL Sodium Level 140 mmol/L Potassium Level 3.8 mmol/L Chloride Level 103.0 mmol/L Carbon Dioxide Level 34.8 mmol/L Anion Gap 6.0 Blood Urea Nitrogen 20 mg/dL Creatinine 0.72 mg/dL Estimated GFR () 133.0 Est GFR (CKD-EPI)(Non-Afr [place]e) 109.9 BUN/Creatinine Ratio 27.0 Glucose Level 203 mg/dL Calcium Level 7.6 mg/dL Phosphorus Level 2.9 mg/dL Magnesium Level 2.1 mg/dL Total Bilirubin 0.9 mg/dL Aspartate Amino Transf (AST/SGOT) 30 U/L Alanine Aminotransferase (ALT/SGPT) 32 U/L Alkaline Phosphatase 125 U/L Total Protein 4.8 g/dL Albumin 1.4 g/dL Globulin 3.4 Albumin/Globulin Ratio 0.411 Segmented Neutrophils 82 % Lymphocytes 4 % Monocytes 10 % Absolute Eosinophils (Manual) 4 % Platelet Estimate SLIGHTLY DECREASED Platelet Morphology NORMAL Test 09/22/20 05:36 09/22/20 07:42 09/22/20 12:27 09/22/20 17:10 Bedside Glucose 157 140 200 Blood Gas Sample Site ISABELLA Blood Gas pH 7.410 Blood Gas PCO2 48.0 mmHg Blood Gas PO2 66.2 mmHg Blood Gas HCO3 29.7 mmol/L Blood Gas Base Excess 4.3 mmol/L Abdi Test N/A Arterial Blood Oxygen Saturation 92.9 % Deoxyhemoglobin 7.1 % Carboxyhemoglobin 0.3 % Methemoglobin 0.3 % Total Hemoglobin 12.0 % Total Oxygen Concentration 15.6 % Blood Gas Temperature 37 Oxygen Delivery Method (LAB) VENT Blood Gas Vent Mode ACVC Blood Gas Vent Rate 26 FiO2 70 % Blood Gas Tidal Volume 400 ML Blood Gas PEEP 10 CMH2O Total Carbon Dioxide 31.2 mmol/L Test 09/22/20 20:34 09/23/20 00:00 09/23/20 04:30 09/23/20 04:40 Bedside Glucose 157 175 Urine Collection Type VOID Urine Color YELLOW Urine Appearance CLEAR Urine Bilirubin NEGATIVE MG/DL Urine Ketones NEGATIVE Urine Specific Hayes 1.015 Urine pH 8.5 Urine Protein 30 mg/dL Urine Urobilinogen >=8.0 Urine Nitrate NEGATIVE Urine Leukocyte Esterase NEGATIVE Urine Blood TRACE Urine RBC 2-5 RBC/HPF Urine WBC 0-2 WBC/HPF Urine Bacteria RARE Urine Glucose NEGATIVE White Blood Count 10.6 10^3/uL Red Blood Count 3.49 10^6/uL Hemoglobin 10.1 g/dL Hematocrit 31.5 % Mean Corpuscular Volume 90.3 fL Mean Corpuscular Hemoglobin 28.9 pg Mean Corpuscular Hemoglobin Concent 32.1 g/dL Red Cell Distribution Width 13.3 % Platelet Count 132 10^3/uL Mean Platelet Volume 10.5 fL Neutrophils (%) (Auto) 81.1 % Lymphocytes (%) (Auto) 7.6 % Monocytes (%) (Auto) 5.9 % Neutrophils # (Auto) 8.6 10^3/uL Lymphocytes # (Auto) 0.80 10^3/uL1 Monocytes # (Auto) 0.6 10^3/uL Absolute Immature Granulocyte (auto 0.21 10^3 u/L Absolute Eosinophils (auto) 0.4 10^3/uL Immature Granulocytes % 2.00 % Eosinophils % 3.3 % Basophils % 0.1 % Basophils # 0.0 10^3/uL Sodium Level 141 mmol/L Potassium Level 3.9 mmol/L Chloride Level 100.0 mmol/L Carbon Dioxide Level 38.3 mmol/L Anion Gap 6.6 Blood Urea Nitrogen 18 mg/dL Creatinine 0.84 mg/dL Estimated GFR () 111.3 Est GFR (CKD-EPI)(Non-Afr [place]e) 92.0 BUN/Creatinine Ratio 21.0 Glucose Level 130 mg/dL Calcium Level 8.2 mg/dL Phosphorus Level 2.8 mg/dL Magnesium Level 2.3 mg/dL Total Bilirubin 0.7 mg/dL Aspartate Amino Transf (AST/SGOT) 32 U/L Alanine Aminotransferase (ALT/SGPT) 33 U/L Alkaline Phosphatase 134 U/L Total Protein 5.8 g/dL Albumin 2.5 g/dL Globulin 3.3 Albumin/Globulin Ratio 0.757 Test 09/23/20 06:27 09/23/20 07:25 09/23/20 10:02 09/23/20 13:30 Bedside Glucose 154 88 166 Blood Gas Sample Site SALOMÓN Blood Gas pH 7.421 Blood Gas PCO2 57.2 mmHg Blood Gas PO2 71.7 mmHg Blood Gas HCO3 36.4 mmol/L Blood Gas Base Excess 9.8 mmol/L Abdi Test N/A Arterial Blood Oxygen Saturation 93.6 % Deoxyhemoglobin 6.3 % Carboxyhemoglobin 0.9 % Methemoglobin 0.4 % Total Hemoglobin 13.8 % Total Oxygen Concentration 17.9 % Blood Gas Temperature 37 Oxygen Delivery Method (LAB) VENT Blood Gas Vent Mode ACVC+ Blood Gas Vent Rate 26 FiO2 70 % Blood Gas Tidal Volume 400 ML Blood Gas PEEP 10 CMH2O Total Carbon Dioxide 38.1 mmol/L Test 09/23/20 17:15 09/23/20 21:49 09/23/20 23:49 09/24/20 03:46 Bedside Glucose 86 181 153 White Blood Count 8.3 10^3/uL Red Blood Count 3.40 10^6/uL Hemoglobin 10.0 g/dL Hematocrit 30.6 % Mean Corpuscular Volume 90.0 fL Mean Corpuscular Hemoglobin 29.4 pg Mean Corpuscular Hemoglobin Concent 32.7 g/dL Red Cell Distribution Width 13.6 % Platelet Count 145 10^3/uL Mean Platelet Volume 10.9 fL Neutrophils (%) (Auto) 71.0 % Lymphocytes (%) (Auto) 14.0 % Monocytes (%) (Auto) 5.7 % Neutrophils # (Auto) 5.9 10^3/uL Lymphocytes # (Auto) 1.16 10^3/uL1 Monocytes # (Auto) 0.5 10^3/uL Absolute Immature Granulocyte (auto 0.31 10^3 u/L Absolute Eosinophils (auto) 0.4 10^3/uL Immature Granulocytes % 3.70 % Eosinophils % 5.2 % Basophils % 0.4 % Basophils # 0.0 10^3/uL D-Dimer 5.22 mg/L Sodium Level 142 mmol/L Potassium Level 3.6 mmol/L Chloride Level 102.0 mmol/L Carbon Dioxide Level 38.9 mmol/L Anion Gap 4.7 Blood Urea Nitrogen 16 mg/dL Creatinine 0.72 mg/dL Estimated GFR () 133.0 Est GFR (CKD-EPI)(Non-Afr [place]e) 109.9 BUN/Creatinine Ratio 22.0 Glucose Level 93 mg/dL Calcium Level 8.2 mg/dL Phosphorus Level 3.7 mg/dL Magnesium Level 2.2 mg/dL Ferritin 644 ng/mL Total Bilirubin 0.5 mg/dL Aspartate Amino Transf (AST/SGOT) 28 U/L Alanine Aminotransferase (ALT/SGPT) 33 U/L Alkaline Phosphatase 128 U/L Lactate Dehydrogenase 195 U/L Total Creatine Kinase 49 U/L C-Reactive Protein 15.29 mg/dL Total Protein 5.6 g/dL Albumin 2.0 g/dL Globulin 3.6 Albumin/Globulin Ratio 0.555 Procalcitonin 0.83 ng/mL Test 09/24/20 06:26 09/24/20 09:19 09/24/20 10:11 09/24/20 13:57 Bedside Glucose 102 76 127 Blood Gas Sample Site ART LINE Blood Gas pH 7.432 Blood Gas PCO2 61.8 mmHg Blood Gas PO2 67.0 mmHg Blood Gas HCO3 40.3 mmol/L Blood Gas Base Excess 13.6 mmol/L Abdi Test N/A Arterial Blood Oxygen Saturation 92.6 % Deoxyhemoglobin 7.3 % Carboxyhemoglobin 0.4 % Methemoglobin 0.4 % Total Hemoglobin 11.9 % Total Oxygen Concentration 15.4 % Oxygen Delivery Method (LAB) MV Blood Gas Vent Mode ACVC+ Blood Gas Vent Rate 26 FiO2 70 % Blood Gas Tidal Volume 400 ML Blood Gas PEEP 10.0 CMH2O Total Carbon Dioxide 42.2 mmol/L Test 09/24/20 18:07 09/24/20 23:49 09/25/20 04:00 09/25/20 05:45 Bedside Glucose 157 127 160 White Blood Count 9.6 10^3/uL Red Blood Count 3.75 10^6/uL Hemoglobin 10.8 g/dL Hematocrit 34.1 % Mean Corpuscular Volume 90.9 fL Mean Corpuscular Hemoglobin 28.8 pg Mean Corpuscular Hemoglobin Concent 31.7 g/dL Red Cell Distribution Width 13.7 % Platelet Count 171 10^3/uL Mean Platelet Volume 11.2 fL Neutrophils (%) (Auto) 67.5 % Lymphocytes (%) (Auto) 15.1 % Monocytes (%) (Auto) 4.0 % Neutrophils # (Auto) 6.5 10^3/uL Lymphocytes # (Auto) 1.45 10^3/uL1 Monocytes # (Auto) 0.4 10^3/uL Absolute Immature Granulocyte (auto 0.58 10^3 u/L Absolute Eosinophils (auto) 0.7 10^3/uL Immature Granulocytes % 6.10 % Eosinophils % 7.0 % Basophils % 0.3 % Basophils # 0.0 10^3/uL Sodium Level 141 mmol/L Potassium Level 4.4 mmol/L Chloride Level 101.0 mmol/L Carbon Dioxide Level 37.2 mmol/L Anion Gap 7.2 Blood Urea Nitrogen 20 mg/dL Creatinine 0.90 mg/dL Estimated GFR () 102.8 Est GFR (CKD-EPI)(Non-Afr [place]e) 85.0 BUN/Creatinine Ratio 22.0 Glucose Level 149 mg/dL Calcium Level 8.6 mg/dL Phosphorus Level 5.6 mg/dL Magnesium Level 2.4 mg/dL Total Bilirubin 0.4 mg/dL Aspartate Amino Transf (AST/SGOT) 28 U/L Alanine Aminotransferase (ALT/SGPT) 31 U/L Alkaline Phosphatase 135 U/L Total Protein 6.0 g/dL Albumin 2.0 g/dL Globulin 4.0 Albumin/Globulin Ratio 0.500 Test 09/25/20 07:42 09/25/20 11:30 Blood Gas Sample Site [email or web address] Blood Gas pH 7.417 Blood Gas PCO2 52.9 mmHg Blood Gas PO2 77.6 mmHg Blood Gas HCO3 33.3 mmol/L Blood Gas Base Excess 7.3 mmol/L Abdi Test N/A Arterial Blood Oxygen Saturation 95.4 % Deoxyhemoglobin 4.6 % Carboxyhemoglobin 0.6 % Methemoglobin 0.3 % Total Hemoglobin 13.0 % Total Oxygen Concentration 17.3 % Blood Gas Temperature 37 Oxygen Delivery Method (LAB) VENT Blood Gas Vent Mode ACVC Blood Gas Vent Rate 26 FiO2 85 % Blood Gas Tidal Volume 400 ML Blood Gas PEEP 10 CMH2O Total Carbon Dioxide 34.9 mmol/L Bedside Glucose 171 Current Medications Medications (Trade) Dose Ordered Sig/Adrianna Route PRN Reason Start Time Stop Time Status Last Admin Dose Admin Acetaminophen (Tylenol) 325 mg Q4H PRN PO PAIN 1 - 3 09/03/20 19:00 09/05/20 19:26 DC Morphine Sulfate (Morphine Sulfate) 2 mg Q4H PRN IV PAIN 4 - 6 09/03/20 19:00 09/04/20 19:28 DC Insulin Human Lispro (Humalog) 0-140 0 Units 141-200... ACHS SQ 09/03/20 21:00 09/13/20 19:43 DC 09/13/20 17:28 Dextrose 1,000 ml @ 100 mls/hr Q10H PRN IV HYPOGLYCEMIA 09/03/20 19:00 09/22/20 10:02 DC Dextrose (Dextrose 50%-Water Syringe) 25 ml STAT PRN IV HYPOGLYCEMIA 09/03/20 19:00 10/03/20 18:59 Glucagon (Glucagen) 1 mg STAT STAT IV 09/03/20 18:44 09/03/20 18:56 DC Heparin Sodium (Porcine) (Heparin) 5,000 unit Q8HR SQ 09/03/20 22:00 09/04/20 20:10 DC 09/04/20 14:00 Lisinopril (Zestril) 20 mg BID PO 09/03/20 21:00 09/14/20 11:07 DC 09/12/20 21:00 Azithromycin 500 mg/Sodium Chloride 250 ml @ 175 mls/hr Q24HRS IV 09/03/20 20:30 09/04/20 08:15 DC 09/03/20 21:11 Ceftriaxone Sodium 1000 mg/ Sodium Chloride 100 ml @ 100 mls/hr Q24HRS IV 09/03/20 19:30 09/04/20 08:15 DC 09/03/20 19:39 Sodium Chloride 1,000 ml @ 75 mls/hr [id number] IV 09/03/20 20:00 09/11/20 10:16 DC 09/11/20 01:20 Ceftriaxone Sodium (Rocephin) 1,000 mg STK-MED ONCE .ROUTE 09/03/20 19:35 09/03/20 19:35 DC Sodium Chloride 100 ml @ ud STK-MED ONCE IV 09/03/20 19:35 09/03/20 19:36 DC Zinc Sulfate (Zinc Sulfate) 220 mg DAILY PO 09/04/20 09:00 09/05/20 00:13 DC 09/04/20 08:22 Ascorbic Acid (Vitamin C) 500 mg BID PO 09/04/20 09:00 09/05/20 00:13 DC 09/04/20 20:22 Morphine Sulfate (Morphine Sulfate) 2 mg Q4H PRN IV PAIN 4 - 6 09/04/20 19:28 09/17/20 11:06 DC Enoxaparin Sodium (Lovenox) 75 mg BID SQ 09/04/20 20:30 09/05/20 11:39 DC 09/05/20 08:20 Azithromycin (Zithromax) 500 mg OT ONCE PO 09/05/20 00:00 09/05/20 02:22 DC 09/05/20 00:27 Ceftriaxone Sodium 2000 mg/ Sodium Chloride 100 ml @ 100 mls/hr Q24HRS IV 09/05/20 00:00 09/09/20 18:46 DC 09/08/20 23:59 Azithromycin (Zithromax) 250 mg DAILY PO 09/05/20 19:00 09/09/20 18:59 DC 09/09/20 08:31 Ceftriaxone Sodium (Rocephin) 1,000 mg STK-MED ONCE .ROUTE 09/05/20 00:25 09/05/20 00:26 DC Sodium Chloride 100 ml @ ud STK-MED ONCE IV 09/05/20 00:26 09/05/20 00:26 DC Enoxaparin Sodium (Lovenox) 40 mg DAILY SQ 09/06/20 09:00 09/09/20 18:47 DC 09/09/20 08:31 Ascorbic Acid (Vitamin C) 1,000 mg BID PO 09/05/20 21:00 10/05/20 20:59 09/25/20 09:00 Zinc Sulfate (Zinc Sulfate) 220 mg BID PO 09/05/20 21:00 10/05/20 20:59 09/25/20 09:00 Albuterol Sulfate (Ventolin Hfa) 2 inh RTQ4 IH 09/05/20 13:00 09/20/20 10:05 DC 09/20/20 08:30 Acetaminophen (Tylenol) 1,000 mg Q6H PRN PO PAIN 1 - 3 09/05/20 12:00 10/05/20 11:59 09/25/20 05:40 Enoxaparin Sodium (Lovenox) 40 mg STK-MED ONCE SQ 09/06/20 07:12 09/06/20 07:12 DC Remdesivir 200 mg/ Sodium Chloride 140 ml @ 120.69 mls/ hr OT STAT IV 09/07/20 18:45 09/07/20 19:54 DC 09/07/20 19:10 Remdesivir 100 mg/ Sodium Chloride 120 ml @ 111.111 mls/hr Q24HRS IV 09/08/20 19:00 09/13/20 07:12 DC 09/12/20 19:00 Potassium Chloride (Klor-Con 10) 40 meq OT PO 09/08/20 13:00 09/11/20 15:50 DC 09/09/20 04:56 Metoprolol Tartrate (Lopresser) 10 mg STAT STAT IVP 09/09/20 11:00 09/09/20 11:04 DC 09/09/20 11:34 Metoprolol Tartrate (Lopresser) 25 mg BID PO 09/09/20 21:00 09/14/20 11:02 DC 09/12/20 21:00 Enoxaparin Sodium (Lovenox) 80 mg BID SQ 09/09/20 19:00 09/11/20 15:51 DC 09/11/20 09:00 Sodium Chloride 250 ml @ ud STK-MED ONCE IV 09/10/20 12:50 09/10/20 12:51 DC Enoxaparin Sodium (Lovenox) 80 mg STK-MED ONCE SQ 09/10/20 21:17 09/10/20 21:17 DC Lorazepam (Ativan) 1 mg Q4HR PRN IV ANXIETY 09/11/20 00:30 09/18/20 08:58 DC 09/13/20 04:00 Enoxaparin Sodium (Lovenox) 80 mg BID SQ 09/11/20 21:00 09/13/20 15:41 DC 09/12/20 21:00 Methylprednisolone Acetate (Depo-Medrol) 40 mg Q8HR IM 09/11/20 22:00 09/11/20 18:19 DC Quetiapine Fumarate (Seroquel) 25 mg BID PO 09/12/20 21:00 09/13/20 15:41 DC 09/12/20 21:00 Quetiapine Fumarate (Seroquel) 25 mg BID PO 09/13/20 03:00 09/13/20 04:46 DC Dexmedetomidine HCl 400 mcg/ Sodium Chloride 100 ml @ 0 mls/hr IV 09/13/20 05:00 10/13/20 04:59 09/14/20 09:26 Sodium Chloride 100 ml @ ud STK-MED ONCE IV 09/13/20 05:16 09/13/20 05:16 DC Hydralazine HCl (Apresoline) 5 mg STAT STAT IV 09/13/20 08:19 09/13/20 08:21 DC 09/13/20 08:30 Hydralazine HCl (Apresoline) 5 mg STAT STAT IV 09/13/20 09:43 09/13/20 10:03 DC 09/13/20 09:43 Sterile Water (Water) 1,000 ml STK-MED ONCE .ROUTE 09/13/20 11:31 09/13/20 11:31 DC Sodium Chloride 1,000 ml @ ud STK-MED ONCE .ROUTE 09/13/20 11:31 09/13/20 11:31 DC Propofol 100 ml @ ud STK-MED ONCE IV 09/13/20 11:46 09/13/20 11:47 DC Propofol (Diprivan) 1,000 mg STAT IV 09/13/20 13:00 10/13/20 12:59 09/25/20 09:30 Sodium Chloride 1,000 ml @ 0 mls/hr Q0M ONCE IV 09/13/20 11:45 09/13/20 13:21 DC 09/13/20 11:45 Fentanyl Citrate 2000 mcg/Sodium Chloride 200 ml @ 7.4 mls/hr IV 09/13/20 16:00 09/13/20 19:50 DC 09/13/20 16:17 Methylprednisolone Sodium Succinate (Solu-Medrol) 40 mg Q8HR IV 09/13/20 22:00 09/17/20 07:00 DC 09/17/20 06:00 Succinylcholine Chloride (Quelicin) 100 mg STK-MED ONCE IV 09/13/20 11:58 09/13/20 18:48 DC Propofol (Diprivan) 150 mg STK-MED ONCE IV 09/13/20 11:58 09/13/20 18:48 DC Furosemide (Lasix) 20 mg STAT STAT IV 09/13/20 19:07 09/13/20 19:47 DC 09/13/20 19:07 Enoxaparin Sodium (Lovenox) 70 mg BID SQ 09/13/20 21:00 10/13/20 20:59 09/25/20 09:00 Insulin Human Lispro (Humalog) 0-140 0 Units 141-200... Q6 SQ 09/14/20 00:00 10/16/22 20:59 09/25/20 06:00 Fentanyl Citrate 5000 mcg/Sodium Chloride 500 ml @ 11.4 mls/hr IV 09/13/20 20:00 10/13/20 19:59 09/25/20 10:30 Sodium Chloride 500 ml @ 500 mls/hr Q1H ONCE IV 09/13/20 21:00 09/13/20 21:59 DC 09/13/20 21:00 Sodium Chloride 500 ml @ ud STK-MED ONCE IV 09/13/20 20:34 09/13/20 20:34 DC Sodium Chloride 250 ml @ ud STK-MED ONCE IV 09/13/20 20:34 09/13/20 20:34 DC Norepinephrine Bitartrate (Levophed) 4 mg STK-MED ONCE .ROUTE 09/13/20 20:34 09/13/20 20:35 DC Norepinephrine Bitartrate 8 mg/ Sodium Chloride 250 ml @ 0 mls/hr PRN PRN IV HYPOTENSION 09/13/20 21:00 09/19/20 10:29 DC 09/18/20 13:20 Furosemide (Lasix) 40 mg STK-MED ONCE .ROUTE 09/13/20 21:19 09/13/20 21:19 DC Docusate Sodium (Colace) 100 mg BID PO 09/14/20 21:00 10/14/20 20:59 09/25/20 09:00 Ceftriaxone Sodium 1000 mg/ Sodium Chloride 100 ml @ 200 mls/hr Q24HRS IV 09/14/20 15:00 09/19/20 09:11 DC 09/18/20 15:09 Azithromycin 500 mg/Sodium Chloride 250 ml @ 175 mls/hr Q24HRS IV 09/14/20 16:00 09/17/20 15:59 DC 09/16/20 16:00 Sodium Chloride 1,000 ml @ 75 mls/hr [id number] IV 09/14/20 15:30 09/17/20 11:06 DC 09/16/20 17:28 Heparin Sodium/ Sodium Chloride 500 ml @ ud STK-MED ONCE IV 09/14/20 18:32 09/14/20 18:32 DC Vecuronium [place] (Norcuron) 10 mg STK-MED ONCE .ROUTE 09/14/20 18:40 09/14/20 18:40 DC Sterile Water (Water) 1,000 ml STK-MED ONCE .ROUTE 09/15/20 00:38 09/15/20 00:39 DC Insulin Glargine (Lantus) 10 unit BID SQ 09/15/20 14:30 09/16/20 12:30 DC 09/16/20 08:28 Sterile Water (Water) 1,000 ml STK-MED ONCE .ROUTE 09/15/20 20:12 09/15/20 20:13 DC Vecuronium [place] (Norcuron) 10 mg STAT ONCE IV 09/16/20 10:00 09/16/20 10:12 DC 09/16/20 11:00 Insulin Glargine (Lantus) 20 unit BID SQ 09/16/20 21:00 09/24/20 10:44 DC 09/23/20 21:45 Pantoprazole Sodium (Protonix Iv) 40 mg DAILY IV 09/17/20 09:00 10/17/20 08:59 09/25/20 09:00 Sterile Water (Water) 1,000 ml STK-MED ONCE .ROUTE 09/16/20 16:52 09/16/20 16:53 DC Furosemide (Lasix) 20 mg STAT ONCE IV 09/17/20 08:00 09/17/20 08:17 DC 09/17/20 08:00 Quetiapine Fumarate (Seroquel) 25 mg BID PO 09/17/20 09:30 10/17/20 09:29 09/25/20 09:00 Vecuronium [place] (Norcuron) 10 mg Q2 PRN IV AGITATION 09/17/20 11:30 09/18/20 08:53 DC 09/17/20 15:00 Furosemide (Lasix) 40 mg DAILY IV 09/17/20 11:30 09/24/20 10:44 DC 09/24/20 09:00 Lactulose (Cephulac) 20 gm DAILY NG 09/18/20 09:00 09/18/20 08:56 DC Norepinephrine Bitartrate (Levophed) 4 mg STK-MED ONCE .ROUTE 09/17/20 16:16 09/17/20 16:17 DC Sodium Chloride 250 ml @ ud STK-MED ONCE IV 09/17/20 16:16 09/17/20 16:17 DC Sterile Water (Water) 1,000 ml STK-MED ONCE .ROUTE 09/17/20 18:20 09/17/20 18:21 DC Sodium Chloride 100 ml @ ud STK-MED ONCE IV 09/17/20 22:27 09/17/20 22:28 DC Fentanyl Citrate (Sublimaze) 50 mcg STK-MED ONCE .ROUTE 09/17/20 22:28 09/17/20 22:29 DC Vecuronium [place] (Norcuron) 10 mg Q2 IV 09/18/20 09:00 09/20/20 10:04 DC 09/20/20 08:00 Lactulose (Cephulac) 20 gm DAILY NG 09/18/20 09:00 10/18/20 08:59 09/25/20 09:00 Vecuronium [place] (Norcuron) 5 mg Q1HR PRN IV Additional Paralysis 09/18/20 09:00 10/18/20 08:59 09/21/20 17:19 Sterile Water (Water) 1,000 ml STK-MED ONCE .ROUTE 09/18/20 09:55 09/18/20 09:55 DC Heparin Sodium/ Dextrose 500 ml @ ud STK-MED ONCE IV 09/18/20 13:59 09/18/20 13:59 DC Cefepime HCl 2 gm/ Sodium Chloride 100 ml @ 100 mls/hr Q8H IV 09/19/20 09:00 09/20/20 10:04 DC 09/20/20 09:00 Norepinephrine Bitartrate 8 mg/ Sodium Chloride 250 ml @ 0 mls/hr TITRATE ONCE IV 09/19/20 11:00 09/19/20 11:01 DC 09/19/20 10:30 Norepinephrine Bitartrate 8 mg/ Sodium Chloride 250 ml @ 0 mls/hr TITRATE IV 09/19/20 12:00 10/19/20 11:59 09/23/20 14:20 Sterile Water (Water) 1,000 ml STK-MED ONCE .ROUTE 09/20/20 08:08 09/20/20 08:09 DC Vecuronium [place] (Norcuron) 10 mg Q3H PRN IV vent/dsynchonry hypoxia 09/20/20 10:30 10/20/20 10:29 09/22/20 20:25 Midazolam HCl (Versed) 2 mg Q2H PRN IV SEDATION 09/20/20 10:30 10/20/20 10:29 UNV Albuterol Sulfate (Ventolin Hfa) 2 inh PRN PRN IH wheezing 09/20/20 10:30 10/20/20 10:29 09/22/20 08:30 Vasopressin 20 unit/Sodium Chloride 100 ml @ 0 mls/hr PRN ONCE IV 09/20/20 17:00 09/20/20 17:01 DC Furosemide (Lasix) 60 mg OT ONCE IV 09/21/20 15:00 09/21/20 15:13 DC Albumin Human (Buminate 25%) 100 ml OT ONCE IV 09/21/20 15:00 09/21/20 15:13 DC 09/21/20 15:00 Sterile Water (Water) 1,000 ml STK-MED ONCE .ROUTE 09/21/20 15:26 09/21/20 15:26 DC Albumin Human (Buminate 25%) 100 ml Q8H IV 09/22/20 10:00 09/23/20 09:59 DC 09/23/20 02:00 Sterile Water (Water) 1,000 ml STK-MED ONCE .ROUTE 09/22/20 17:13 09/22/20 17:14 DC Acetaminophen (Ofirmev) 1,000 mg Q8H PRN IV see dose instructions 09/23/20 04:30 10/23/20 04:29 09/24/20 04:20 Sodium Chloride 250 ml @ ud STK-MED ONCE IV 09/23/20 14:14 09/23/20 14:14 DC Norepinephrine Bitartrate (Levophed) 4 mg STK-MED ONCE .ROUTE 09/23/20 14:14 09/23/20 14:14 DC Potassium Chloride 100 ml @ 50 mls/hr OT IV 09/24/20 10:00 10/24/20 09:59 09/24/20 10:32 Furosemide (Lasix) 20 mg DAILY IV 09/25/20 09:00 10/25/20 08:59 09/25/20 09:00 Heparin Sodium/ Sodium Chloride 500 ml @ ud STK-MED ONCE IV 09/25/20 07:09 09/25/20 07:10 DC Sterile Water (Water) 1,000 ml STK-MED ONCE .ROUTE 09/25/20 08:59 09/25/20 08:59 DC VTE VTE Risk Total Score: 2 VTE Risk Score VTE Risk: Score 0-1 = Low Risk (Aggressive mobilization; early ambulation; no VTE prophylaxis required) Score 2: Moderate Risk (Intermittent/Pneumatic Compression Device OR Lovenox/Heparin/Coumadin) Score 3-4: High Risk (Intermittent/Pneumatic Compression Device AND Lovenox/Heparin/Coumadin) Score > or =5: Highest Risk (Intermittent/Pneumatic Compression Device AND Lovenox/Heparin/Coumadin) Antico:Hep/LMWH/Coum/Xarelto: Yes VTE VTE Present on Admission: No Currently receiving anticoagul: No VTE Risk Total Score: 2 Antico:Hep/LMWH/Coum/Xarelto: Yes Assessment/Plan Assessment/Plan Plan #1 Neuro: The pt is intubated and sedated on prop and fentanyl. The pt is getting PRN vecuronium #2 CV: THe pt has been normotensive but will prn need levo to keep MAP >65. #3 Pulm: The pt is tx with remdesivir lovenox and decadron. Vent settings of 70% on 10 PEEP. #4 GI: COnt tf #5 Renal: Monitor for renal failure, replete lytes, lasix PRN #6 ID: [id number] #7 Endo: keep FS 150-180 #8 Heme: Tx plats >10k hgb >7 #9 PPx: lovenox and PPI I discussed pt with [employer] and completed the video assessment with assistance f dontrell the [employer]. I spent a total of greater than 60 minutes formulating critical care for this patient today. I saw this patient and completed a full visual exam via audio-visual HIPAA compliant technology. ALVARO HACKETT MD Sep 25, 2020 16:52
[2020-09-25] MEDS: D5W-1/2NS 1000ML 1,000 ML IV SCH (19:00)
--- NOTE | 2020-09-25 19:15 | NUR ---
Received report from Gosia HEBREW CANTOR. Assumed care of pt. Fentanyl infusion at 3 mcgs/kg/hour = 24.54 ml/hour, propofol infusion at 50 mcgs/kg/min = 24.54 ml/hour. Levophed infusion OFF continued since 2229 last PM shift. Goal is to keep MAP > 65. Arterial line waveform flat. RN assessed and inflated pressure bag to 300 mmHG. Unable to flush arterial line with pressure bag (heparin 1000 units/500 ml NS) due to line clotted. RN changed partial tubing on arterial line and accurate waveform obtained. Zeroed and recalibrated arterial line left radial site. Correlates within 10 points mmHG of cuff BP. Pt's HR and BP increase with tactile and verbal stimulation and with oral care and oral and ETT suctioning done at this time. Low grade fever noted per rectal temp. Will monitor closely. NSR 90s to STach 105 on bedside monitor
--- NOTE | 2020-09-25 20:00 | NUR ---
Vent setting of fi02 at 70% NOT 70 liters/minute under flowsheet documentation
--- NOTE | 2020-09-25 21:00 | NUR ---
Pt anxious and grimaces with oral care and suctioning & ETT suctioning with increased BP & HR noted when stimulated. Increased respirations over vent setting of 26 rate with asynchronous respiratory pattern noted. Pt calms down once stimuli stopped. Pt repositioned [id number] with HOB >30. Aspiration precautions in place due to tube feedings with glucerna 1.5 q4 hours (2000, 0000, 0400). No spontaneous movements of arms or legs noted due to sedation
--- NOTE | 2020-09-25 21:21 | PRM.PN ---
Subjective Subjective Date: Sep 25, 2020 Time: 11:55 Subjective Pt s/e this AM at bedside. No acute events overnight. He remains stable on current sedation and pressors. VTE VTE Risk Total Score: 2 VTE Risk Score VTE Risk: Score 0-1 = Low Risk (Aggressive mobilization; early ambulation; no VTE prophylaxis required) Score 2: Moderate Risk (Intermittent/Pneumatic Compression Device OR Lovenox/Heparin/Coumadin) Score 3-4: High Risk (Intermittent/Pneumatic Compression Device AND Lovenox/Heparin/Coumadin) Score > or =5: Highest Risk (Intermittent/Pneumatic Compression Device AND Lovenox/Heparin/Coumadin) Antico:Hep/LMWH/Coum/Xarelto: Yes Mechanical device ordered: Yes Review of Systems Constitutional: Weakness; No: Fever, Chills, Sweats, Malaise, Other Eyes: No: Pain, Vision change, Conjunctivae inflammation, Eyelid inflammation, Other, Redness ENT: No: Ear pain, Ear discharge, Nose pain, Nose discharge, Nose congestion, Mouth pain, Mouth swelling, Throat pain, Throat swelling, Other Respiratory: Shortness of breath Cardiovascular: No: Chest Pain, Palpitations, Orthopnea, Paroxysmal Noc. Dyspnea, Edema, Lt Headedness, Other Gastrointestinal: No: Nausea, Vomiting, Abdominal Pain, Diarrhea, Constipation, Melena, Hematochezia, Other Genitourinary: No Dysuria, No Frequency, No Incontinence, No Hematuria, No Retention, No Other Musculoskeletal: No: other, neck pain, shoulder pain, arm pain, back pain, hand pain, leg pain, foot pain Skin: No: Rash, Lesions, Jaundice, Bruising, Other Other Limited by intubation and sedation Allergies: Coded Allergies: No Known Allergies (Unverified , 09/03/20) Scheduled Lisinopril (Lisinopril), 1 TAB PO BID, (Reported) Metformin Hcl (Metformin Hcl), 1,000 MG PO BID, (Reported) Objective Vitals and I/O Vital Sign - Last 24 Hours 09/25/20 09/25/20 09/25/20 09/25/20 07:00 07:15 07:30 07:45 Temp 99.5 99.5 99.3 99.3 Pulse 96 94 94 90 Resp B/P (MAP) 105/54 (71) 103/51 (68) 107/57 (74) 108/50 (69) 101/50 (67) 107/54 (71) Pulse Ox 97 98 98 98 09/25/20 09/25/20 09/25/20 09/25/20 08:00 08:00 08:00 08:15 Temp 99.3 99.1 Pulse 85 89 90 Resp B/P (MAP) 116/62 (80) 123/56 (78) 122/56 (78) Pulse Ox 99 98 97 O2 Delivery Mechanical Ventilator FiO2 85 09/25/20 09/25/20 09/25/20 09/25/20 08:29 08:30 08:30 08:45 Temp 99.1 99.1 Pulse 89 88 88 87 Resp B/P (MAP) 117/63 (81) 109/52 (71) 115/53 (73) Pulse Ox 97 97 98 98 O2 Delivery Mechanical Ventilator FiO2 85 85 09/25/20 09/25/20 09/25/20 09/25/20 09:00 09:07 09:15 09:30 Temp 99.1 99.1 99.1 Pulse 86 91 86 89 Resp B/P (MAP) 121/62 (81) 112/53 (72) 114/66 (82) 112/52 (72) 110/52 (71) Pulse Ox 98 97 99 99 09/25/20 09/25/20 09/25/20 09/25/20 09:45 10:00 10:15 10:30 Temp 99.1 99.5 99.5 99.9 Pulse 92 96 98 99 Resp B/P (MAP) 107/51 (69) 127/74 (91) 110/54 (72) 110/63 (79) 124/58 (80) 101/51 (68) Pulse Ox 100 98 98 99 09/25/20 09/25/20 09/25/20 09/25/20 10:45 10:52 11:00 11:00 Temp 99.9 100.2 100.2 Pulse 98 100 99 99 Resp B/P (MAP) 98/50 (66) 110/63 (79) 110/63 (79) 95/50 (65) 95/50 (65) Pulse Ox 98 99 99 99 FiO2 85 09/25/20 09/25/20 09/25/20 09/25/20 11:15 11:30 11:45 12:00 Temp 100.0 99.9 99.7 99.7 Pulse 100 100 98 97 Resp B/P (MAP) 98/52 (67) 111/55 (73) 87/49 (62) 110/57 (74) 90/50 (63) 89/50 (63) Pulse Ox 99 99 99 99 09/25/20 09/25/20 09/25/20 09/25/20 12:00 12:15 12:30 12:45 Temp 99.5 99.3 99.1 Pulse 85 97 96 95 Resp B/P (MAP) 93/51 (65) 122/62 (82) 96/54 (68) 94/53 (67) Pulse Ox 99 99 99 100 FiO2 85 09/25/20 09/25/20 09/25/20 09/25/20 13:00 13:15 13:30 13:45 Temp 99.0 98.8 98.6 98.6 Pulse 98 99 98 103 Resp B/P (MAP) 127/69 (88) 119/63 (81) 123/71 (88) 139/68 (91) 118/62 (80) 111/60 (77) Pulse Ox 99 99 99 97 09/25/20 09/25/20 09/25/20 09/25/20 14:00 14:15 14:30 14:35 Temp 98.8 98.8 99.0 Pulse 101 101 100 98 Resp B/P (MAP) 117/73 (88) 131/68 (89) 133/72 (92) 131/67 (88) 120/64 (82) Pulse Ox 98 99 100 100 FiO2 80 09/25/20 09/25/20 09/25/20 09/25/20 14:45 15:00 15:15 15:30 Temp 99.0 98.8 98.8 98.8 Pulse 98 96 94 95 Resp 15 14 18 14 B/P (MAP) 117/63 (81) 118/67 (84) 115/63 (80) 127/73 (91) 119/65 (83) 127/69 (88) Pulse Ox 100 100 100 100 09/25/20 09/25/20 09/25/20 09/25/20 15:35 17:00 19:00 19:15 Temp 100.2 Pulse 107 98 98 Resp B/P (MAP) 131/53 (79) 122/63 (82) 116/61 (79) Pulse Ox 94 95 96 O2 Delivery Vent O2 Flow Rate 70.00 FiO2 80 09/25/20 09/25/20 09/25/20 09/25/20 19:30 19:38 19:40 19:45 Temp 100.0 100.2 100.2 100.2 Pulse 102 102 100 100 Resp B/P (MAP) 132/68 (89) 142/74 (96) 134/78 (96) 117/60 (79) 118/61 (80) 114/59 (77) 119/61 (80) Pulse Ox 93 95 96 97 09/25/20 09/25/20 09/25/20 09/25/20 20:00 20:15 20:30 20:45 Temp 100.2 100.2 100.4 100.6 Pulse 101 102 107 117 Resp B/P (MAP) 139/76 (97) 117/60 (79) 142/73 (96) 158/70 (99) 122/63 (82) 128/62 (84) Pulse Ox 97 97 96 93 09/25/20 21:00 Temp 100.6 Pulse 107 B/P (MAP) 141/71 (94) 114/57 (76) Pulse Ox 95 Intake and Output 09/25/20 07:00 Intake Total 3350.53 ml Output Total 4375 ml Balance -1024.47 ml General: Other (intubated/sedated) HEENT: PERRLA, Other (ET tube in place) Neck: No JVD Lungs: Other (diminished bilaterally ) Heart: Regular rate, Normal S1, Normal S2, Other (NSR) Abdomen: Normal bowel sounds, Soft Extremities: No clubbing, No cyanosis, No edema Neuro: Other (intubated/sedated) Psych/Mental Status: Other (intubated/sedated) All Results(Lab/Rad) Laboratory Tests Test 09/03/20 21:02 09/04/20 04:47 09/04/20 05:59 09/04/20 07:15 Bedside Glucose 164 120 123 White Blood Count 8.1 10^3/uL Red Blood Count 4.89 10^6/uL Hemoglobin 14.2 g/dL Hematocrit 40.7 % Mean Corpuscular Volume 83.2 fL Mean Corpuscular Hemoglobin 29.0 pg Mean Corpuscular Hemoglobin Concent 34.9 g/dL Red Cell Distribution Width 12.0 % Platelet Count 185 10^3/uL Mean Platelet Volume 9.6 fL Neutrophils (%) (Auto) 83.5 % Lymphocytes (%) (Auto) 9.7 % Monocytes (%) (Auto) 6.0 % Neutrophils # (Auto) 6.8 10^3/uL Lymphocytes # (Auto) 0.79 10^3/uL1 Monocytes # (Auto) 0.5 10^3/uL Absolute Immature Granulocyte (auto 0.05 10^3 u/L Absolute Eosinophils (auto) 0.0 10^3/uL Immature Granulocytes % 0.60 % Eosinophils % 0.0 % Basophils % 0.2 % Basophils # 0.0 10^3/uL Sodium Level 132 mmol/L Potassium Level 3.6 mmol/L Chloride Level 97.0 mmol/L Carbon Dioxide Level 26.0 mmol/L Anion Gap 12.6 Blood Urea Nitrogen 21 mg/dL Creatinine 1.18 mg/dL Estimated GFR () 75.2 Est GFR (CKD-EPI)(Non-Afr Monegasque) 62.1 BUN/Creatinine Ratio 17.0 Glucose Level 118 mg/dL Hemoglobin A1c 8.0 % Calcium Level 8.3 mg/dL Total Bilirubin 0.7 mg/dL Aspartate Amino Transf (AST/SGOT) 55 U/L Alanine Aminotransferase (ALT/SGPT) 37 U/L Alkaline Phosphatase 40 U/L Total Protein 6.5 g/dL Albumin 2.3 g/dL Globulin 4.2 Albumin/Globulin Ratio 0.547 Triglycerides Level 65 mg/dL Cholesterol Level 76 mg/dL LDL Cholesterol, Calculated 26.0 VLDL Cholesterol, Calculated 13.0 HDL Cholesterol 37 mg/dL Cholesterol Ratio (LDL/HDL) 0.7 Cholesterol/HDL Ratio [id number] Test 09/04/20 11:37 09/04/20 12:22 09/04/20 16:36 Bedside Glucose 159 131 D-Dimer 1.85 mg/L Troponin I < 0.02 ng/mL Pro-B-Type Natriuretic Peptide 97 pg/mL Current Medications Medications (Trade) Dose Ordered Sig/Adrianna Route PRN Reason Start Time Stop Time Status Last Admin Dose Admin Acetaminophen (Tylenol) 325 mg Q4H PRN PO PAIN 1 - 3 09/03/20 19:00 10/03/20 18:59 Morphine Sulfate (Morphine Sulfate) 2 mg Q4H PRN IV PAIN 4 - 6 09/03/20 19:00 09/04/20 19:28 DC Insulin Human Lispro (Humalog) 0-140 0 Units 141-200... ACHS SQ 09/03/20 21:00 10/03/20 20:59 09/04/20 11:30 Dextrose 1,000 ml @ 100 mls/hr Q10H PRN IV HYPOGLYCEMIA 09/03/20 19:00 10/03/20 18:59 Dextrose (Dextrose 50%-Water Syringe) 25 ml STAT PRN IV HYPOGLYCEMIA 09/03/20 19:00 10/03/20 18:59 Glucagon (Glucagen) 1 mg STAT STAT IV 09/03/20 18:44 09/03/20 18:56 DC Heparin Sodium (Porcine) (Heparin) 5,000 unit Q8HR SQ 09/03/20 22:00 10/03/20 21:59 09/04/20 14:00 Lisinopril (Zestril) 20 mg BID PO 09/03/20 21:00 10/03/20 20:59 09/04/20 08:22 Azithromycin 500 mg/Sodium Chloride 250 ml @ 175 mls/hr Q24HRS IV 09/03/20 20:30 09/04/20 08:15 DC 09/03/20 21:11 Ceftriaxone Sodium 1000 mg/ Sodium Chloride 100 ml @ 100 mls/hr Q24HRS IV 09/03/20 19:30 09/04/20 08:15 DC 09/03/20 19:39 Sodium Chloride 1,000 ml @ 75 mls/hr [id number] IV 09/03/20 20:00 10/03/20 19:59 09/04/20 09:20 Ceftriaxone Sodium (Rocephin) 1,000 mg STK-MED ONCE .ROUTE 09/03/20 19:35 09/03/20 19:35 DC Sodium Chloride 100 ml @ ud STK-MED ONCE IV 09/03/20 19:35 09/03/20 19:36 DC Zinc Sulfate (Zinc Sulfate) 220 mg DAILY PO 09/04/20 09:00 10/04/20 08:59 09/04/20 08:22 Ascorbic Acid (Vitamin C) 500 mg BID PO 09/04/20 09:00 10/04/20 08:59 09/04/20 08:22 Morphine Sulfate (Morphine Sulfate) 2 mg Q4H PRN IV PAIN 4 - 6 09/04/20 19:28 10/03/20 18:59 Course Sepsis Screening Results: Posi: POSITIVE++ Sepsis Qualifier/Stage: SEVERE SEPSIS RISK DATE SEEN BY PHYSICIAN: Sep 11, 2020 TIME SEEN BY PROVIDER: 13:20 Duration or Total Time Spent w: 60 mins Vitals & review Data Vital Sign - Last 24 Hours 09/11/20 09/11/20 09/11/20 09/11/20 07:00 07:00 07:30 08:00 Temp 98.0 Pulse 62 67 Resp 28 27 B/P (MAP) 160/83 (108) 150/75 (100) Pulse Ox 96 91 O2 Delivery Non-Rebreather O2 Flow Rate 15.00 09/11/20 09/11/20 09/11/20 09/11/20 08:25 08:40 09:00 09:00 Pulse 65 87 81 Resp 22 19 B/P (MAP) 149/72 149/86 Pulse Ox 93 94 O2 Delivery Non-Rebreather O2 Flow Rate 15.00 FiO2 100 09/11/20 09/11/20 09/11/20 09/11/20 09:00 10:00 11:00 12:00 Pulse 67 74 68 Resp 25 30 35 B/P (MAP) 149/72 (97) 128/69 (88) 134/65 (88) Pulse Ox 93 88 91 O2 Delivery Non-Rebreather O2 Flow Rate 15.00 Intake and Output 09/11/20 07:00 Intake Total 335 ml Output Total 670 ml Balance -335 ml Laboratory Tests Test 09/09/20 16:50 09/09/20 19:54 09/10/20 04:26 09/10/20 04:54 Bedside Glucose 192 219 93 White Blood Count 11.8 10^3/uL Red Blood Count 4.77 10^6/uL Hemoglobin 13.8 g/dL Hematocrit 39.8 % Mean Corpuscular Volume 83.4 fL Mean Corpuscular Hemoglobin 28.9 pg Mean Corpuscular Hemoglobin Concent 34.7 g/dL Red Cell Distribution Width 12.3 % Platelet Count 361 10^3/uL Mean Platelet Volume 9.2 fL Neutrophils (%) (Auto) 84.0 % Lymphocytes (%) (Auto) 9.0 % Monocytes (%) (Auto) 4.8 % Neutrophils # (Auto) 9.9 10^3/uL Lymphocytes # (Auto) 1.06 10^3/uL1 Monocytes # (Auto) 0.6 10^3/uL Absolute Immature Granulocyte (auto 0.23 10^3 u/L Absolute Eosinophils (auto) 0.0 10^3/uL Immature Granulocytes % 2.00 % Eosinophils % 0.1 % Basophils % 0.1 % Basophils # 0.0 10^3/uL D-Dimer 8.09 mg/L Sodium Level 140 mmol/L Potassium Level 3.7 mmol/L Chloride Level 106.0 mmol/L Carbon Dioxide Level 27.2 mmol/L Anion Gap 10.5 Blood Urea Nitrogen 19 mg/dL Creatinine 0.96 mg/dL Estimated GFR () 95.4 Est GFR (CKD-EPI)(Non-Afr Monegasque) 78.9 BUN/Creatinine Ratio 19.0 Glucose Level 100 mg/dL Calcium Level 7.9 mg/dL Phosphorus Level 2.4 mg/dL Magnesium Level 1.8 mg/dL Ferritin 1073 ng/mL Total Bilirubin 0.7 mg/dL Aspartate Amino Transf (AST/SGOT) 27 U/L Alanine Aminotransferase (ALT/SGPT) 29 U/L Alkaline Phosphatase 58 U/L Lactate Dehydrogenase 295 U/L Total Creatine Kinase 41 U/L C-Reactive Protein 3.25 mg/dL Total Protein 5.7 g/dL Albumin 2.0 g/dL Globulin 3.7 Albumin/Globulin Ratio 0.540 Procalcitonin 0.10 ng/mL Test 09/10/20 07:10 09/10/20 11:33 09/10/20 16:46 09/10/20 19:51 Bedside Glucose 134 173 178 169 Test 09/11/20 01:56 09/11/20 02:03 09/11/20 05:13 09/11/20 05:14 Bedside Glucose 159 145 Blood Gas Sample Site LB Blood Gas pH 7.398 Blood Gas PCO2 31.4 mmHg Blood Gas PO2 54.5 mmHg Blood Gas HCO3 18.9 mmol/L Blood Gas Base Excess -4.8 mmol/L Abdi Test POSITIVE Arterial Blood Oxygen Saturation 87.1 % Deoxyhemoglobin 12.9 % Carboxyhemoglobin 0.3 % Methemoglobin 0.0 % Total Hemoglobin 13.4 % Total Oxygen Concentration 16.3 % Blood Gas Temperature 37 Oxygen Delivery Method (LAB) NON-REBREATHER MASK FiO2 100 % Total Carbon Dioxide 19.9 mmol/L White Blood Count 11.5 10^3/uL Red Blood Count 4.66 10^6/uL Hemoglobin 13.4 g/dL Hematocrit 39.1 % Mean Corpuscular Volume 83.9 fL Mean Corpuscular Hemoglobin 28.8 pg Mean Corpuscular Hemoglobin Concent 34.3 g/dL Red Cell Distribution Width 12.2 % Platelet Count 296 10^3/uL Mean Platelet Volume 9.2 fL Neutrophils (%) (Auto) 87.0 % Lymphocytes (%) (Auto) 5.9 % Monocytes (%) (Auto) 5.0 % Neutrophils # (Auto) 10.0 10^3/uL Lymphocytes # (Auto) 0.68 10^3/uL1 Monocytes # (Auto) 0.6 10^3/uL Absolute Immature Granulocyte (auto 0.23 10^3 u/L Absolute Eosinophils (auto) 0.0 10^3/uL Immature Granulocytes % 2.00 % Eosinophils % 0.0 % Basophils % 0.1 % Basophils # 0.0 10^3/uL Sodium Level 139 mmol/L Potassium Level 3.9 mmol/L Chloride Level 106.0 mmol/L Carbon Dioxide Level 23.2 mmol/L Anion Gap 13.7 Blood Urea Nitrogen 22 mg/dL Creatinine 0.88 mg/dL Estimated GFR () 105.5 Est GFR (CKD-EPI)(Non-Afr Monegasque) 87.2 BUN/Creatinine Ratio 25.0 Glucose Level 151 mg/dL Calcium Level 8.3 mg/dL Phosphorus Level 3.1 mg/dL Magnesium Level 2.3 mg/dL Total Bilirubin 0.7 mg/dL Aspartate Amino Transf (AST/SGOT) 27 U/L Alanine Aminotransferase (ALT/SGPT) 23 U/L Alkaline Phosphatase 71 U/L Total Protein 5.7 g/dL Albumin 2.0 g/dL Globulin 3.7 Albumin/Globulin Ratio 0.540 Test 09/11/20 05:41 09/11/20 07:35 09/11/20 07:50 09/11/20 11:42 Blood Gas Sample Site RT RADIAL ARTERY RR Blood Gas pH 7.405 7.398 Blood Gas PCO2 35.2 mmHg 36.1 mmHg Blood Gas PO2 53.5 mmHg 52.5 mmHg Blood Gas HCO3 21.6 mmol/L 21.8 mmol/L Blood Gas Base Excess -2.5 mmol/L -2.5 mmol/L Abdi Test POSITIVE POSITIVE Arterial Blood Oxygen Saturation 87.9 % 86.0 % Deoxyhemoglobin 12.1 % 13.9 % Carboxyhemoglobin 0 % 0.6 % Methemoglobin 0.1 % 0.3 % Total Hemoglobin 14.0 % 13.9 % Total Oxygen Concentration 17.3 % 16.6 % Blood Gas Temperature 37 37 Oxygen Delivery Method (LAB) NON-REBREATHER MASK NON-REBREATHER MASK FiO2 100 % 100 % Total Carbon Dioxide 22.6 mmol/L 22.9 mmol/L Bedside Glucose 133 185 Current Medications Medications (Trade) Dose Ordered Sig/Adrianna PRN Reason Start Time Stop Time Status Last Admin Enoxaparin Sodium (Lovenox) 80 mg BID 09/09/20 19:00 10/04/20 20:29 09/11/20 09:00 Lorazepam (Ativan) 1 mg Q4HR PRN ANXIETY 09/11/20 00:30 10/11/20 00:29 09/11/20 09:00 Metoprolol Tartrate (Lopresser) 25 mg BID 09/09/20 21:00 10/09/20 20:59 09/11/20 09:00 Remdesivir 100 mg/ Sodium Chloride 120 ml @ 111.111 mls/hr Q24HRS 09/08/20 19:00 10/08/20 18:59 09/10/20 18:00 LEVEL 1 SEPSIS INFECTION CRITE: Cough/Shortness of Breath, Flu-Pneumonia LEVEL 2-SIRS (LIST ALL THAT AP: RR>20/min, WBC>03117 Cardiovascular Evidence: Not Assessed or None Hematologic Evidence: None/Not assessed Hepatic Evidence: None/Not assessed Metabolic Evidence: None/Not assessed Neurological Evidence: Altered Mental Status Respiratory Evidence: Acute Resp failure, Need for O2 to keep>90%, O2 SAT<90room air Renal Evidence: None/Not assessed O2 Sat by Pulse Oximetry: 95 Oxygen Flow Rate: 70.00 Assessment/Plan Assessment/Plan Assessment/Plan A 64 y.o. male w/ PMHx significant for HTN, HLD, DM II, who was admitted on Sep 03 for Acute Hypoxemic respiratory failure. Initially, his COVID testing returned negative and his hypoxemia was thought to be 2/2 another etiology. However, after no etiology could be elucidated, a COVID PCR was repeated and returned positive. He was then started on treatment for COVID-19 with Azithromycin, steroids, Remdesivir, CCP, and Zinc/Vitamin C. Despite treatment, his respiratory status slowly declined and he was intubated on Sep 13. At this time, he is stable on current sedation and intermittently requiring pressors pressors. He was started on proning protocol on Sep 18, 16h prone and 8h supine. This was held starting the evening of Sep 21 due to periorbital edema and chemosis, which resolved spontaneously. He fevered again to 101F on Sep 23 and had repeat Blood, urine, and sputum cultures drawn. At this time, he has made very little progress towards being weaned from the vent and is approaching 14 days of ventilation. I discussed this with his daughters, and explained that he would not be a good candidate for a tracheostomy as he has made very little progress to this point. However, will defer further discussions for a later date. COVID PNEUMONIA SEVERE ARDS ACUTE HYPOXEMIC RESPIRATORY FAILURE SEPTIC SHOCK - Telemed Intensivists following; appreciate assistance with vent and medical management - Completed 5 days of Remdesivir - Completed 5 days of Azithromycin - Pt was started on Dexamethasone initially for treatment of COVID; he was transitioned to Methylprednisolone at some point, which was discontinued on Sep 17. - Pt has completed 5 days of Rocephin for CAP PNA today; will discontinue - Duonebs q4h scheduled - Given P/F ratio, will start proning. 16h prone, 8h supine. holding proning due to periorbital edema and chemosis - continue sedation with RASS goal of < - 2 - minimize vec pushes if possible - Pt meets criteria for septic shock given +SIRS, infection, and hypotension requiring pressors - goal fluid balance should be negative to keep Pt as dry as possible - follow repeat Blood/urine/sputum cultures; so far no growth to date - decreased lasix to 20mg daily ESSENTIAL HYPERTENSION - stable with pressors - holding home antihypertensives for now T2DM - blood sugars very labile - decreased insulin to just Sliding scale due to hypoglycemia at night - enteral feeding ongoing STAGE I ZOEY, resolved - likely pre-renal given hypotension and septic shock requiring pressors - continue to monitor Cr closely; currently on the downtrend - avoid further hypotension Keep MAP > 60 - avoid nephrotoxins where possible - monitor UOP; - Keep pt as dry as possible while maintaining UOP/renal function Hypoalbuminemia, improved - albumin very low at 1.2 [09/21]; improved to 1.4 with 25% Albumin - Gave 25% Albumin q8h x3 Sep 22. Albumin improved to 2.5 - monitor Periorbital Edema Chemosis - likely 2/2 low albumin and proning - holding proning tonight and giving albumin - improved significantly; continue to monitor Feeding - GLUCERNA 1.5CAL Analgesia - fentanyl gtt Sedation - Propofol. precedex, versed VTE ppx - lovenox Head of bed - 30 degrees GI ppx - protonix Spontaneous breathing trial - not ready Bowels care - having regular BMs UOP - Crawford in place Time Spent: > 35 minutes spent in chart review, patient evaluation, coordination of care, and documentation, including 30 min of critical care time Critical care recommendations: #1 Neuro: The pt is intubated and sedated on prop and fentanyl. The pt is getting PRN vecuronium #2 CV: THe pt has been normotensive but will prn need levo to keep MAP >65. #3 Pulm: The pt is tx with remdesivir lovenox and decadron. Vent settings of 70% on 10 PEEP. #4 GI: COnt tf #5 Renal: Monitor for renal failure, replete lytes, lasix PRN #6 ID: [id number] + #7 Endo: keep FS 150-180 #8 Heme: Tx plats >10k hgb >7 #9 PPx: lovenox and PPI I discussed pt with MERCHANDISE ADJUSTMENT CLERK and completed the video assessment with assistance from the MERCHANDISE ADJUSTMENT CLERK. I spent a total of greater than 60 minutes formulating critical care for this patient today. I saw this patient and completed a full visual exam via audio-visual HIPAA compliant technology. HUSEYIN Mathur MD Sep 25, 2020 21:21
--- NOTE | 2020-09-25 22:00 | NUR ---
Daughter Nelson updated on father's condition. She is aware that his VS are stable with HR 112 at present due to fever of 100.7 F. BP stable. All questions answered and teaching done re: plan of care for vent weaning as tolerated daily. Aware vent fio2 is down to 70% from 85% today
[2020-09-26] VITALS (87 sets, daily range): BP systolic 96–172; BP diastolic 52–82
[2020-09-26] MEDS: HUMALOG SQ SCH ×3 (01:00→12:00)
--- NOTE | 2020-09-26 01:00 | NUR ---
temp down to 99.2 F per rectal temp. HR NSR 94. No asynchronous breaths over vent setting noted.
--- NOTE | 2020-09-26 02:20 | NUR ---
New bottle of Propofol hung at midnight NOT at 0220. Delay in documenting administration due to busy with pt.
[2020-09-26] MEDS: DIPRIVAN IV SCH ×7 (02:24→22:45)
[2020-09-26] MEDS: SUBLIMAZE IV SCH ×2 (04:52→22:46)
[2020-09-26] MEDS: NS IV SCH ×2 (04:52→22:46)
[2020-09-26 04:53] LABS: MEAN CORP HGB 29.1 pg (26-34); RED CELL DISTRIBUTION WIDTH 13.6 % (11.5-14.5)
[2020-09-26 05:59] LABS: CARBON DIOXIDE 34.9 mmol/L (20.0-32)
[2020-09-26] MEDS: TYLENOL PO PRN ×2 (06:36→20:46)
--- NOTE | 2020-09-26 07:00 | NUR ---
Report given to Genaro. Tube feeding Residuals 20ml at 2000 and 0000 and 10 ml at 0400
[2020-09-26 08:07] LABS: ABG PCO2 53.4 mmHg (35.0-45.0); ABG PH 7.424 (7.350-7.450); BE(B) 8.3 mmol/L (-2.0-2.0); HCO3act 34.2 mmol/L (22.0-26.0); pO2 73.1 mmHg (80.0-100.0)
[2020-09-26] MEDS: PROTONIX IV IV SCH (09:00)
[2020-09-26] MEDS: LASIX IV SCH (09:00)
[2020-09-26] MEDS: VITAMIN C PO SCH ×2 (09:00→21:00)
[2020-09-26] MEDS: COLACE PO SCH ×2 (09:00→21:00)
[2020-09-26] MEDS: ZINC SULFATE PO SCH ×2 (09:00→21:00)
[2020-09-26] MEDS: CEPHULAC NG SCH (09:00)
[2020-09-26] MEDS: SEROQUEL PO SCH ×2 (09:00→21:00)
[2020-09-26] MEDS: LOVENOX SQ SCH ×2 (09:00→21:00)
--- NOTE | 2020-09-26 12:10 | TELE.CONS ---
Consultation Reason for Consult: Reason for Consultation: resp failure History of Present Illness History of Patient Comments vented sedated off pressors Review of Systems Constitutional: Weakness; No: Fever, Chills, Sweats, Malaise, Other Eyes: No: Pain, Vision change, Conjunctivae inflammation, Eyelid inflammation, Other, Redness ENT: No: Ear pain, Ear discharge, Nose pain, Nose discharge, Nose congestion, Mouth pain, Mouth swelling, Throat pain, Throat swelling, Other Respiratory: Shortness of breath Cardiovascular: No: Chest Pain, Palpitations, Orthopnea, Paroxysmal Noc. Dyspne a, Edema, Lt Headedness, Other Gastrointestinal: No: Nausea, Vomiting, Abdominal Pain, Diarrhea, Constipation, Melena, Hematochezia, Other Genitourinary: No Dysuria, No Frequency, No Incontinence, No Hematuria, No Retention, No Other Musculoskeletal: No: other, neck pain, shoulder pain, arm pain, back pain, hand pain, leg pain, foot pain Skin: No: Rash, Lesions, Jaundice, Bruising, Other Allergies: Coded Allergies: No Known Allergies (Unverified , 09/03/20) Scheduled Lisinopril (Lisinopril), 1 TAB PO BID, (Reported) Metformin Hcl (Metformin Hcl), 1,000 MG PO BID, (Reported) VITALS REVIEW VITALS Vital Sign - Last 24 Hours 09/26/20 09/26/20 09/26/20 09/26/20 07:00 07:30 08:00 08:00 Temp 100.2 Pulse 97 96 Resp 26 26 26 B/P (MAP) 130/78 (95) 133/66 (88) Pulse Ox 97 100 O2 Delivery Mechanical Ventilator Mechanical Ventilator FiO2 70 70 09/26/20 09/26/20 09/26/20 09/26/20 08:18 08:21 10:06 11:30 Pulse 96 96 105 99 Resp 28 30 28 26 Pulse Ox 96 96 97 98 O2 Delivery Mechanical Ventilator FiO2 70 70 70 60 09/26/20 11:30 Resp 26 O2 Delivery Mechanical Ventilator FiO2 60 LABS LAB RESULTS labs and radiology reviewed VTE VTE Risk Total Score: 2 VTE Risk Score VTE Risk: Score 0-1 = Low Risk (Aggressive mobilization; early ambulation; no VTE prophylaxis required) Score 2: Moderate Risk (Intermittent/Pneumatic Compression Device OR Lovenox/Heparin/Coumadin) Score 3-4: High Risk (Intermittent/Pneumatic Compression Device AND Lovenox/Heparin/Coumadin) Score > or =5: Highest Risk (Intermittent/Pneumatic Compression Device AND Lovenox/Heparin/Coumadin) Antico:Hep/LMWH/Coum/Xarelto: Yes Mechanical device ordered: Yes VTE VTE Present on Admission: No Currently receiving anticoagul: No VTE Risk Total Score: 2 Antico:Hep/LMWH/Coum/Xarelto: Yes Mechanical device ordered: Yes Assessment/Plan Assessment/Plan Problems: (1) Pneumonia due to COVID-19 virus ICD Code: U07.1 - COVID-19; J12.82 - Pneumonia due to coronavirus disease 2019 SNOMED: 614518408655217847 (2) Acute respiratory failure ICD Code: J96.00 - Acute respiratory failure, unspecified whether with hypoxia or hypercapnia SNOMED: 99905963 (3) Diabetes mellitus ICD Code: E11.9 - Type 2 diabetes mellitus without complications SNOMED: 04958417 Plan ARDS Acute resp fialure COVID PNA DM has been off pressors cont to use propofol/fentanyl tube feeds at goal cont lasix keep negative titrate peep/[id number] today will consider brinign down sedation tomorrow glucose control I discussed pt with RAND SEWER and completed the video assessment with assistance from the RAND SEWER. I spent a total of greater than 60 minutes formulating critical care for this patient today. I saw this patient and completed a full visual exam via audio-visual HIPAA compliant technology. Duration Duration or Time Spent with Pa: 60 mins WHITNEY GAO MD Sep 26, 2020 12:10
--- NOTE | 2020-09-26 13:44 | PRM.PN ---
Subjective Subjective Date: Sep 26, 2020 Time: 13:44 Subjective No adverse events overnight. Intubated and sedated. His 69 year old was mercifully and compassionately extubated yesterday in this ICU after family decided to withdraw life support, as she continued to decline and made no significant progress toward weening off high pressure and high oxygen ventilator settings after being on the ventilator for greater than 2 weeks VTE VTE Risk Total Score: 2 VTE Risk Score VTE Risk: Score 0-1 = Low Risk (Aggressive mobilization; early ambulation; no VTE prophylaxis required) Score 2: Moderate Risk (Intermittent/Pneumatic Compression Device OR Lovenox/Heparin/Coumadin) Score 3-4: High Risk (Intermittent/Pneumatic Compression Device AND Lovenox/Heparin/Coumadin) Score > or =5: Highest Risk (Intermittent/Pneumatic Compression Device AND Lovenox/Heparin/Coumadin) Antico:Hep/LMWH/Coum/Xarelto: Yes Mechanical device ordered: Yes Review of Systems Constitutional: Weakness; No: Fever, Chills, Sweats, Malaise, Other Eyes: No: Pain, Vision change, Conjunctivae inflammation, Eyelid inflammation, Other, Redness ENT: No: Ear pain, Ear discharge, Nose pain, Nose discharge, Nose congestion, Mouth pain, Mouth swelling, Throat pain, Throat swelling, Other Respiratory: Shortness of breath Cardiovascular: No: Chest Pain, Palpitations, Orthopnea, Paroxysmal Noc. Dyspn ea, Edema, Lt Headedness, Other Gastrointestinal: No: Nausea, Vomiting, Abdominal Pain, Diarrhea, Constipation, Melena, Hematochezia, Other Genitourinary: No Dysuria, No Frequency, No Incontinence, No Hematuria, No Retention, No Other Musculoskeletal: No: other, neck pain, shoulder pain, arm pain, back pain, hand pain, leg pain, foot pain Skin: No: Rash, Lesions, Jaundice, Bruising, Other Allergies: Coded Allergies: No Known Allergies (Unverified , 09/03/20) Scheduled Lisinopril (Lisinopril), 1 TAB PO BID, (Reported) Metformin Hcl (Metformin Hcl), 1,000 MG PO BID, (Reported) Objective Vitals and I/O Vital Sign - Last 24 Hours 09/26/20 09/26/20 09/26/20 09/26/20 07:00 07:30 08:00 08:00 Temp 100.2 Pulse 97 96 Resp 26 26 B/P (MAP) 130/78 (95) 133/66 (88) Pulse Ox 97 100 O2 Delivery Mechanical Ventilator Mechanical Ventilator FiO2 70 70 09/26/20 09/26/20 09/26/20 09/26/20 08:18 08:21 10:06 11:30 Pulse 96 96 105 99 Resp 28 30 28 26 Pulse Ox 96 96 97 98 O2 Delivery Mechanical Ventilator FiO2 70 70 70 60 09/26/20 11:30 Resp 26 O2 Delivery Mechanical Ventilator FiO2 60 General: Other (intubated/sedated) HEENT: PERRLA, Other (ET tube in place) Neck: No JVD Lungs: Other (diminished bilaterally ) Heart: Regular rate, Normal S1, Normal S2, Other (NSR) Abdomen: Normal bowel sounds, Soft Extremities: No clubbing, No cyanosis, No edema Neuro: Other (intubated/sedated) Psych/Mental Status: Other (intubated/sedated) All Results(Lab/Rad) Laboratory Tests Test 09/03/20 21:02 09/04/20 04:47 09/04/20 05:59 09/04/20 07:15 Bedside Glucose 164 120 123 White Blood Count 8.1 10^3/uL Red Blood Count 4.89 10^6/uL Hemoglobin 14.2 g/dL Hematocrit 40.7 % Mean Corpuscular Volume 83.2 fL Mean Corpuscular Hemoglobin 29.0 pg Mean Corpuscular Hemoglobin Concent 34.9 g/dL Red Cell Distribution Width 12.0 % Platelet Count 185 10^3/uL Mean Platelet Volume 9.6 fL Neutrophils (%) (Auto) 83.5 % Lymphocytes (%) (Auto) 9.7 % Monocytes (%) (Auto) 6.0 % Neutrophils # (Auto) 6.8 10^3/uL Lymphocytes # (Auto) 0.79 10^3/uL1 Monocytes # (Auto) 0.5 10^3/uL Absolute Immature Granulocyte (auto 0.05 10^3 u/L Absolute Eosinophils (auto) 0.0 10^3/uL Immature Granulocytes % 0.60 % Eosinophils % 0.0 % Basophils % 0.2 % Basophils # 0.0 10^3/uL Sodium Level 132 mmol/L Potassium Level 3.6 mmol/L Chloride Level 97.0 mmol/L Carbon Dioxide Level 26.0 mmol/L Anion Gap 12.6 Blood Urea Nitrogen 21 mg/dL Creatinine 1.18 mg/dL Estimated GFR () 75.2 Est GFR (CKD-EPI)(Non-Afr Russian) 62.1 BUN/Creatinine Ratio 17.0 Glucose Level 118 mg/dL Hemoglobin A1c 8.0 % Calcium Level 8.3 mg/dL Total Bilirubin 0.7 mg/dL Aspartate Amino Transf (AST/SGOT) 55 U/L Alanine Aminotransferase (ALT/SGPT) 37 U/L Alkaline Phosphatase 40 U/L Total Protein 6.5 g/dL Albumin 2.3 g/dL Globulin 4.2 Albumin/Globulin Ratio 0.547 Triglycerides Level 65 mg/dL Cholesterol Level 76 mg/dL LDL Cholesterol, Calculated 26.0 VLDL Cholesterol, Calculated 13.0 HDL Cholesterol 37 mg/dL Cholesterol Ratio (LDL/HDL) 0.7 Cholesterol/HDL Ratio 2.308100 Test 09/04/20 11:37 09/04/20 12:22 09/04/20 16:36 Bedside Glucose 159 131 D-Dimer 1.85 mg/L Troponin I < 0.02 ng/mL Pro-B-Type Natriuretic Peptide 97 pg/mL Current Medications Medications (Trade) Dose Ordered Sig/Adrianna Route PRN Reason Start Time Stop Time Status Last Admin Dose Admin Acetaminophen (Tylenol) 325 mg Q4H PRN PO PAIN 1 - 3 09/03/20 19:00 10/03/20 18:59 Morphine Sulfate (Morphine Sulfate) 2 mg Q4H PRN IV PAIN 4 - 6 09/03/20 19:00 09/04/20 19:28 DC Insulin Human Lispro (Humalog) 0-140 0 Units 141-200... ACHS SQ 09/03/20 21:00 10/03/20 20:59 09/04/20 11:30 Dextrose 1,000 ml @ 100 mls/hr Q10H PRN IV HYPOGLYCEMIA 09/03/20 19:00 10/03/20 18:59 Dextrose (Dextrose 50%-Water Syringe) 25 ml STAT PRN IV HYPOGLYCEMIA 09/03/20 19:00 10/03/20 18:59 Glucagon (Glucagen) 1 mg STAT STAT IV 09/03/20 18:44 09/03/20 18:56 DC Heparin Sodium (Porcine) (Heparin) 5,000 unit Q8HR SQ 09/03/20 22:00 10/03/20 21:59 09/04/20 14:00 Lisinopril (Zestril) 20 mg BID PO 09/03/20 21:00 10/03/20 20:59 09/04/20 08:22 Azithromycin 500 mg/Sodium Chloride 250 ml @ 175 mls/hr Q24HRS IV 09/03/20 20:30 09/04/20 08:15 DC 09/03/20 21:11 Ceftriaxone Sodium 1000 mg/ Sodium Chloride 100 ml @ 100 mls/hr Q24HRS IV 09/03/20 19:30 09/04/20 08:15 DC 09/03/20 19:39 Sodium Chloride 1,000 ml @ 75 mls/hr [id number] IV 09/03/20 20:00 10/03/20 19:59 09/04/20 09:20 Ceftriaxone Sodium (Rocephin) 1,000 mg STK-MED ONCE .ROUTE 09/03/20 19:35 09/03/20 19:35 DC Sodium Chloride 100 ml @ ud STK-MED ONCE IV 09/03/20 19:35 09/03/20 19:36 DC Zinc Sulfate (Zinc Sulfate) 220 mg DAILY PO 09/04/20 09:00 10/04/20 08:59 09/04/20 08:22 Ascorbic Acid (Vitamin C) 500 mg BID PO 09/04/20 09:00 10/04/20 08:59 09/04/20 08:22 Morphine Sulfate (Morphine Sulfate) 2 mg Q4H PRN IV PAIN 4 - 6 09/04/20 19:28 10/03/20 18:59 Course Sepsis Screening Results: Posi: POSITIVE++ Sepsis Qualifier/Stage: SEVERE SEPSIS RISK DATE SEEN BY PHYSICIAN: Sep 11, 2020 TIME SEEN BY PROVIDER: 13:20 Duration or Total Time Spent w: 60 mins Vitals & review Data Vital Sign - Last 24 Hours 09/11/20 09/11/20 09/11/20 09/11/20 07:00 07:00 07:30 08:00 Temp 98.0 Pulse 62 67 Resp 28 27 B/P (MAP) 160/83 (108) 150/75 (100) Pulse Ox 96 91 O2 Delivery Non-Rebreather O2 Flow Rate 15.00 09/11/20 09/11/20 09/11/20 09/11/20 08:25 08:40 09:00 09:00 Pulse 65 87 81 Resp 22 19 B/P (MAP) 149/72 149/86 Pulse Ox 93 94 O2 Delivery Non-Rebreather O2 Flow Rate 15.00 FiO2 100 09/11/20 09/11/20 09/11/20 09/11/20 09:00 10:00 11:00 12:00 Pulse 67 74 68 Resp 25 30 35 B/P (MAP) 149/72 (97) 128/69 (88) 134/65 (88) Pulse Ox 93 88 91 O2 Delivery Non-Rebreather O2 Flow Rate 15.00 Intake and Output 09/11/20 07:00 Intake Total 335 ml Output Total 670 ml Balance -335 ml Laboratory Tests Test 09/09/20 16:50 09/09/20 19:54 09/10/20 04:26 09/10/20 04:54 Bedside Glucose 192 219 93 White Blood Count 11.8 10^3/uL Red Blood Count 4.77 10^6/uL Hemoglobin 13.8 g/dL Hematocrit 39.8 % Mean Corpuscular Volume 83.4 fL Mean Corpuscular Hemoglobin 28.9 pg Mean Corpuscular Hemoglobin Concent 34.7 g/dL Red Cell Distribution Width 12.3 % Platelet Count 361 10^3/uL Mean Platelet Volume 9.2 fL Neutrophils (%) (Auto) 84.0 % Lymphocytes (%) (Auto) 9.0 % Monocytes (%) (Auto) 4.8 % Neutrophils # (Auto) 9.9 10^3/uL Lymphocytes # (Auto) 1.06 10^3/uL1 Monocytes # (Auto) 0.6 10^3/uL Absolute Immature Granulocyte (auto 0.23 10^3 u/L Absolute Eosinophils (auto) 0.0 10^3/uL Immature Granulocytes % 2.00 % Eosinophils % 0.1 % Basophils % 0.1 % Basophils # 0.0 10^3/uL D-Dimer 8.09 mg/L Sodium Level 140 mmol/L Potassium Level 3.7 mmol/L Chloride Level 106.0 mmol/L Carbon Dioxide Level 27.2 mmol/L Anion Gap 10.5 Blood Urea Nitrogen 19 mg/dL Creatinine 0.96 mg/dL Estimated GFR () 95.4 Est GFR (CKD-EPI)(Non-Afr Russian) 78.9 BUN/Creatinine Ratio 19.0 Glucose Level 100 mg/dL Calcium Level 7.9 mg/dL Phosphorus Level 2.4 mg/dL Magnesium Level 1.8 mg/dL Ferritin 1073 ng/mL Total Bilirubin 0.7 mg/dL Aspartate Amino Transf (AST/SGOT) 27 U/L Alanine Aminotransferase (ALT/SGPT) 29 U/L Alkaline Phosphatase 58 U/L Lactate Dehydrogenase 295 U/L Total Creatine Kinase 41 U/L C-Reactive Protein 3.25 mg/dL Total Protein 5.7 g/dL Albumin 2.0 g/dL Globulin 3.7 Albumin/Globulin Ratio 0.540 Procalcitonin 0.10 ng/mL Test 09/10/20 07:10 09/10/20 11:33 09/10/20 16:46 09/10/20 19:51 Bedside Glucose 134 173 178 169 Test 09/11/20 01:56 09/11/20 02:03 09/11/20 05:13 09/11/20 05:14 Bedside Glucose 159 145 Blood Gas Sample Site LB Blood Gas pH 7.398 Blood Gas PCO2 31.4 mmHg Blood Gas PO2 54.5 mmHg Blood Gas HCO3 18.9 mmol/L Blood Gas Base Excess -4.8 mmol/L Abdi Test POSITIVE Arterial Blood Oxygen Saturation 87.1 % Deoxyhemoglobin 12.9 % Carboxyhemoglobin 0.3 % Methemoglobin 0.0 % Total Hemoglobin 13.4 % Total Oxygen Concentration 16.3 % Blood Gas Temperature 37 Oxygen Delivery Method (LAB) NON-REBREATHER MASK FiO2 100 % Total Carbon Dioxide 19.9 mmol/L White Blood Count 11.5 10^3/uL Red Blood Count 4.66 10^6/uL Hemoglobin 13.4 g/dL Hematocrit 39.1 % Mean Corpuscular Volume 83.9 fL Mean Corpuscular Hemoglobin 28.8 pg Mean Corpuscular Hemoglobin Concent 34.3 g/dL Red Cell Distribution Width 12.2 % Platelet Count 296 10^3/uL Mean Platelet Volume 9.2 fL Neutrophils (%) (Auto) 87.0 % Lymphocytes (%) (Auto) 5.9 % Monocytes (%) (Auto) 5.0 % Neutrophils # (Auto) 10.0 10^3/uL Lymphocytes # (Auto) 0.68 10^3/uL1 Monocytes # (Auto) 0.6 10^3/uL Absolute Immature Granulocyte (auto 0.23 10^3 u/L Absolute Eosinophils (auto) 0.0 10^3/uL Immature Granulocytes % 2.00 % Eosinophils % 0.0 % Basophils % 0.1 % Basophils # 0.0 10^3/uL Sodium Level 139 mmol/L Potassium Level 3.9 mmol/L Chloride Level 106.0 mmol/L Carbon Dioxide Level 23.2 mmol/L Anion Gap 13.7 Blood Urea Nitrogen 22 mg/dL Creatinine 0.88 mg/dL Estimated GFR () 105.5 Est GFR (CKD-EPI)(Non-Afr Russian) 87.2 BUN/Creatinine Ratio 25.0 Glucose Level 151 mg/dL Calcium Level 8.3 mg/dL Phosphorus Level 3.1 mg/dL Magnesium Level 2.3 mg/dL Total Bilirubin 0.7 mg/dL Aspartate Amino Transf (AST/SGOT) 27 U/L Alanine Aminotransferase (ALT/SGPT) 23 U/L Alkaline Phosphatase 71 U/L Total Protein 5.7 g/dL Albumin 2.0 g/dL Globulin 3.7 Albumin/Globulin Ratio 0.540 Test 09/11/20 05:41 09/11/20 07:35 09/11/20 07:50 09/11/20 11:42 Blood Gas Sample Site RT RADIAL ARTERY RR Blood Gas pH 7.405 7.398 Blood Gas PCO2 35.2 mmHg 36.1 mmHg Blood Gas PO2 53.5 mmHg 52.5 mmHg Blood Gas HCO3 21.6 mmol/L 21.8 mmol/L Blood Gas Base Excess -2.5 mmol/L -2.5 mmol/L Abdi Test POSITIVE POSITIVE Arterial Blood Oxygen Saturation 87.9 % 86.0 % Deoxyhemoglobin 12.1 % 13.9 % Carboxyhemoglobin 0 % 0.6 % Methemoglobin 0.1 % 0.3 % Total Hemoglobin 14.0 % 13.9 % Total Oxygen Concentration 17.3 % 16.6 % Blood Gas Temperature 37 37 Oxygen Delivery Method (LAB) NON-REBREATHER MASK NON-REBREATHER MASK FiO2 100 % 100 % Total Carbon Dioxide 22.6 mmol/L 22.9 mmol/L Bedside Glucose 133 185 Current Medications Medications (Trade) Dose Ordered Sig/Adrianna PRN Reason Start Time Stop Time Status Last Admin Enoxaparin Sodium (Lovenox) 80 mg BID 09/09/20 19:00 10/04/20 20:29 09/11/20 09:00 Lorazepam (Ativan) 1 mg Q4HR PRN ANXIETY 09/11/20 00:30 10/11/20 00:29 09/11/20 09:00 Metoprolol Tartrate (Lopresser) 25 mg BID 09/09/20 21:00 10/09/20 20:59 09/11/20 09:00 Remdesivir 100 mg/ Sodium Chloride 120 ml @ 111.111 mls/hr Q24HRS 09/08/20 19:00 10/08/20 18:59 09/10/20 18:00 LEVEL 1 SEPSIS INFECTION CRITE: Cough/Shortness of Breath, Flu-Pneumonia LEVEL 2-SIRS (LIST ALL THAT AP: RR>20/min, WBC>[id number] Cardiovascular Evidence: Not Assessed or None Hematologic Evidence: None/Not assessed Hepatic Evidence: None/Not assessed Metabolic Evidence: None/Not assessed Neurological Evidence: Altered Mental Status Respiratory Evidence: Acute Resp failure, Need for O2 to keep>90%, O2 SAT<90room air Renal Evidence: None/Not assessed O2 Sat by Pulse Oximetry: 98 Oxygen Flow Rate: 70.00 Assessment/Plan Assessment/Plan Assessment/Plan Assessment/Plan A 64 y.o. male w/ PMHx significant for HTN, HLD, DM II, who was admitted on Sep 03 for Acute Hypoxemic respiratory failure. Initially, his COVID testing returned negative and his hypoxemia was thought to be 2/2 another etiology. However, after no etiology could be elucidated, a COVID PCR was repeated and returned positive. He was then started on treatment for COVID-19 with Azithromycin, steroids, Remdesivir, CCP, and Zinc/Vitamin C. Despite treatment, his respiratory status slowly declined and he was intubated on Sep 13. At this time, he is stable on current sedation and intermittently requiring pressors pressors. He was started on proning protocol on Sep 18, 16h prone and 8h supine. This was held starting the evening of Sep 21 due to periorbital edema and chemosis, which resolved spontaneously. He fevered again to 101F on Sep 23 and had repeat Blood, urine, and sputum cultures drawn. At this time, he has made very little progress towards being weaned from the vent and is approaching 14 days of ventilation. I discussed this with his daughters, and explained that he would not be a good candidate for a tracheostomy as he has made very little progress to this point. However, will defer further discussions for a later date. COVID PNEUMONIA SEVERE ARDS ACUTE HYPOXEMIC RESPIRATORY FAILURE SEPTIC SHOCK - Telemed Intensivists following; appreciate assistance with vent and medical management - Completed 5 days of Remdesivir - Completed 5 days of Azithromycin - Pt was started on Dexamethasone initially for treatment of COVID; he was transitioned to Methylprednisolone at some point, which was discontinued on Sep 17. - Pt has completed 5 days of Rocephin for CAP PNA today; will discontinue - Duonebs q4h scheduled - Given P/F ratio, will start proning. 16h prone, 8h supine. holding proning due to periorbital edema and chemosis - continue sedation with RASS goal of < - 2 - minimize vec pushes if possible - Pt meets criteria for septic shock given +SIRS, infection, and hypotension requiring pressors - goal fluid balance should be negative to keep Pt as dry as possible - follow repeat Blood/urine/sputum cultures; so far no growth to date - decreased lasix to 20mg daily ESSENTIAL HYPERTENSION - stable with pressors - holding home antihypertensives for now T2DM - blood sugars very labile - decreased insulin to just Sliding scale due to hypoglycemia at night - enteral feeding ongoing STAGE I ZOEY, resolved - likely pre-renal given hypotension and septic shock requiring pressors - continue to monitor Cr closely; currently on the downtrend - avoid further hypotension Keep MAP > 60 - avoid nephrotoxins where possible - monitor UOP; - Keep pt as dry as possible while maintaining UOP/renal function Hypoalbuminemia, improved - albumin very low at 1.2 [09/21]; improved to 1.4 with 25% Albumin - Gave 25% Albumin q8h x3 Sep 22. Albumin improved to 2.5 - monitor Feeding - GLUCERNA 1.5CAL Analgesia - fentanyl gtt Sedation - Propofol. precedex, versed VTE ppx - lovenox Head of bed - 30 degrees GI ppx - protonix Spontaneous breathing trial - not ready Bowels care - having regular BMs UOP - Crawford in place Critical care recommendations: ARDS Acute resp fialure COVID PNA DM has been off pressors cont to use propofol/fentanyl tube feeds at goal cont lasix keep negative titrate peep/fi02 today will consider brining down sedation tomorrow glucose control Plan HUSEYIN SHERMAN MD Sep 26, 2020 13:44
[2020-09-26] MEDS ORDERED: VERSED ONE ×2 (16:32→20:18)
[2020-09-26] MEDS: VERSED IV PRN ×3 (16:32→20:19)
[2020-09-26] MEDS: D5W-1/2NS 1000ML 1,000 ML IV SCH (19:00)
--- NOTE | 2020-09-26 19:00 | NUR ---
Received report from Genaro INSPECTOR RECEIVING. Assumed care of pt. Fentanyl infusion at 3 mcgs/kg/hour = 24.54 ml/hour, propofol infusion at 50 mcgs/kg/min = 24.54 ml/hour. Goal is to keep MAP > 65. Arterial line waveform accurate with dicrotic notch. Zeroed and recalibrated arterial line left radial site. Correlates within 10 points mmHG of cuff BP. Pt's HR and BP increase with tactile and verbal stimulation and with oral care and oral and ETT suctioning done at this time. Pt grimaces with stimulation, Low grade fever noted per rectal temp 100.0 F. Will monitor closely. NSR 90s to STach 100 on bedside monitor.
--- NOTE | 2020-09-26 21:00 | NUR ---
Pt has periods of abdominal breathing and asynchronous breathing on vent. Versed given per prn order prior to now. See EMAR. Pt grimaces periodically. Max doses of fentanyl and propofol infusing per orders. RN suctioned pt via ETT and orally. Moderate amount bloody secretions orally. No new change
[2020-09-27] VITALS (96 sets, daily range): BP systolic 48–191; BP diastolic 0–87
[2020-09-27] MEDS: VERSED IV PRN ×7 (00:40→23:01)
[2020-09-27] MEDS ORDERED: VERSED ONE ×7 (00:40→23:05)
[2020-09-27] MEDS: HUMALOG SQ SCH ×4 (00:45→17:30)
[2020-09-27] MEDS: DIPRIVAN IV SCH ×6 (01:55→20:33)
--- NOTE | 2020-09-27 01:56 | NUR ---
Hung new bottle of propofol. Half of bottle (50ml of 100 ml) wasted when new tubing was primed and clamp left open by accident. Witnessed by MIGUEL Ken.
--- NOTE | 2020-09-27 02:00 | NUR ---
O2 sats down to 89-90% from 93-94% on fio2 of 60%. RN suctioned pt via ETT. Minimal thin secretions obtained. RN repositioned pt higher in HOB and turned pt on side. O2 sats increased to 94-96% within 5 minutes. Pt has synchronous breaths periodically. Versed given prn. No grimacing noted at this time. Good urine output noted 750 ml this shift. Tube feeding Residual 30 ml at 2100 and Residual 15 ml at 0030. Addendum: 09/27/20 at 0507 by CHESTER SCHULTZ RN,ICU,[facility] RN CORRECTION: Pt has ASYNCHRONOUS not synchronous breathing periodically.
[2020-09-27] MEDS: TYLENOL PO PRN (03:58)
--- NOTE | 2020-09-27 03:58 | NUR ---
Pt has increased fever at this time. See vital flowsheet. See EMAR for med given. Cool sponge bath given to decrease fever. Pt has periods of abdominal breathing and asynchronous breathing on vent. Versed given per prn order now. See EMAR. Pt grimaces periodically. Max doses of fentanyl and propofol infusing per orders. RN suctioned pt via ETT and orally. Minimal amount bloody secretions orally. Mouth care given.
[2020-09-27 04:41] LABS: MEAN CORP HGB 29.1 pg (26-34); RED CELL DISTRIBUTION WIDTH 13.5 % (11.5-14.5)
--- NOTE | 2020-09-27 04:55 | NUR ---
Pt has periods of abdominal breathing and asynchronous breathing on vent. Pt grimaces periodically. Max doses of fentanyl and propofol infusing per orders. RN suctioned pt via ETT and orally. Minimal secretions from ETT. JANNETH Lucas, called to bedside due to o2 sats 89-90% consistently. TOPPIECE CUTTER increased fio2 from 60% to 70%. O2 sats increased to 94-95% immediately. HOB up 45 degrees.
[2020-09-27] MEDS: D5W-1/2NS 1000ML 1,000 ML IV SCH (05:00)
[2020-09-27 05:38] LABS: CALCIUM 8.7 mg/dL (8.4-10.5); CARBON DIOXIDE 34.8 mmol/L (20.0-32)
--- NOTE | 2020-09-27 05:51 | NUR ---
NOTIFIED DR SHERMAN RE: PATIENT IS FEBRILE DESPITE RTC ANTIPYRETICS AND COOLING MEASURES. LATEST RECTAL TEMP 100.8, HR 104 BPM. RELAYED RESULT OF SPUTUM CULTURE- ENTEROBACTER AEROGENES.
--- NOTE | 2020-09-27 06:16 | NUR ---
TELEPHONE ORDER FROM DR SHERMAN BLOOD AND URINE CULTURES. START VANCOMYCIN 15 MG/KG BID AND CEFEPIME 2G IV BID. RBTO
--- NOTE | 2020-09-27 06:20 | NUR ---
Urine culture drawn from sterile port on franz catheter. Will have lab take back to dept after blood cultures x 2 drawn.
--- NOTE | 2020-09-27 06:40 | NUR ---
Lab techs present for blood cultures. RN jasmin 1 set of blood culture from left arterial line and gave to earthmoving labourer. Receiving Teller in room to draw 2nd blood culture
--- NOTE | 2020-09-27 06:50 | NUR ---
Report given to Gonzalo BALE SEWER. Aware of 2 new antibiotic orders (for sputum culture results) after urine and blood cultures obtained. Aware of urine and blood cultures x2 ordered and done. Aware fio2 increased to 70% per AIRCRAFT NAVIGATOR due to low o2 sats of 89% early AM. See prior note for time.
[2020-09-27 07:31] LABS: APPEARANCE,URINE CLEAR (CLEAR); BILIRUBIN,URINE NEGATIVE (NEGATIVE); UA COLOR YELLOW (YELLOW)
[2020-09-27 07:38] LABS: ABG PCO2 47.5 mmHg (35.0-45.0); ABG PH 7.396 (7.350-7.450); HCO3act 28.5 mmol/L (22.0-26.0); pO2 81.3 mmHg (80.0-100.0)
[2020-09-27] MEDS: LASIX IV SCH (08:46)
[2020-09-27] MEDS: CEPHULAC NG SCH (08:46)
[2020-09-27] MEDS: PROTONIX IV IV SCH (08:46)
[2020-09-27] MEDS: COLACE PO SCH ×2 (08:47→20:30)
[2020-09-27] MEDS: SEROQUEL PO SCH ×2 (08:47→20:30)
[2020-09-27] MEDS: LOVENOX SQ SCH ×2 (08:47→20:30)
[2020-09-27] MEDS: ZINC SULFATE PO SCH ×2 (08:47→20:30)
[2020-09-27] MEDS: VITAMIN C PO SCH ×2 (08:47→20:35)
[2020-09-27] MEDS ORDERED: MAXIPIME 2 GM in NS 100ML 100 ML IV SCH ×3 (09:00→17:00)
--- NOTE | 2020-09-27 09:15 | NUR ---
Dr. Girard at bedside assessing patient. Patient tachycardic normal sinus 115, blood pressure elevated to 150/64. Provider made aware of gum and lip irritation with bleeding. Will keep monitoring and continue with oral care. Reviewed current temperature of 101.1. PRN tylenol given previous shift not due for next administration. No new orders received.
[2020-09-27] MEDS ORDERED: NS IV SCH ×2 (10:00→21:00)
[2020-09-27] MEDS ORDERED: VANCOMYCIN HCL IV SCH (10:00)
[2020-09-27] MEDS: OFIRMEV IV PRN ×2 (10:17→18:11)
--- NOTE | 2020-09-27 10:47 | PRM.PN ---
Subjective Subjective Date: Sep 27, 2020 Time: 10:44 Subjective Patient started having fevers overnight temp up to 101 despite Tylenol blood and urine cultures sent patient started on broad-spectrum antibiotics with vancomycin and cefepime. His sputum culture has grown out Enterobacter aerugene for which cefepime will provide adequate coverage Patient's urine and blood cultures from the have been negative to date. FINAL REPORT [facility] RX --------- --- * CEFEPIME <=2 S VTE VTE Risk Total Score: 2 VTE Risk Score VTE Risk: Score 0-1 = Low Risk (Aggressive mobilization; early ambulation; no VTE prophylaxis required) Score 2: Moderate Risk (Intermittent/Pneumatic Compression Device OR Lovenox/Heparin/Coumadin) Score 3-4: High Risk (Intermittent/Pneumatic Compression Device AND Lovenox/Heparin/Coumadin) Score > or =5: Highest Risk (Intermittent/Pneumatic Compression Device AND Lovenox/Heparin/Coumadin) Antico:Hep/LMWH/Coum/Xarelto: Yes Mechanical device ordered: Yes Review of Systems Constitutional: Weakness; No: Fever, Chills, Sweats, Malaise, Other Eyes: No: Pain, Vision change, Conjunctivae inflammation, Eyelid inflammation, Other, Redness ENT: No: Ear pain, Ear discharge, Nose pain, Nose discharge, Nose congestion, Mouth pain, Mouth swelling, Throat pain, Throat swelling, Other Respiratory: Shortness of breath Cardiovascular: No: Chest Pain, Palpitations, Orthopnea, Paroxysmal Noc. Dyspnea, Edema, Lt Headedness, Other Gastrointestinal: No: Nausea, Vomiting, Abdominal Pain, Diarrhea, Constipation, Melena, Hematochezia, Other Genitourinary: No Dysuria, No Frequency, No Incontinence, No Hematuria, No Retention, No Other Musculoskeletal: No: other, neck pain, shoulder pain, arm pain, back pain, hand pain, leg pain, foot pain Skin: No: Rash, Lesions, Jaundice, Bruising, Other Allergies: Coded Allergies: No Known Allergies (Unverified , 09/03/20) Scheduled Lisinopril (Lisinopril), 1 TAB PO BID, (Reported) Metformin Hcl (Metformin Hcl), 1,000 MG PO BID, (Reported) Objective Vitals and I/O Vital Sign - Last 24 Hours 09/27/20 09/27/20 09/27/20 09/27/20 07:00 07:15 07:30 07:45 Temp 100.4 100.6 100.6 100.8 Pulse 102 102 102 102 Resp B/P (MAP) 122/39 (66) 139/62 (87) 128/39 (68) 137/62 (87) 131/60 (83) 137/61 (86) Pulse Ox 98 97 98 97 09/27/20 09/27/20 09/27/20 09/27/20 07:59 08:00 08:00 08:00 Pulse 102 103 114 Resp 24 Pulse Ox 98 98 94 O2 Delivery Mechanical Ventilator Mechanical Ventilator FiO2 70 60 60 09/27/20 09/27/20 08:00 10:14 Pulse 110 Resp 26 Pulse Ox 95 O2 Delivery Mechanical Ventilator FiO2 60 60 Intake and Output 09/27/20 07:00 Intake Total 3198.96 ml Output Total 4195 ml Balance -996.04 ml General: Other (intubated/sedated) HEENT: PERRLA, Other (ET tube in place) Neck: No JVD Lungs: Other (diminished bilaterally ) Heart: Regular rate, Normal S1, Normal S2, Other (NSR) Abdomen: Normal bowel sounds, Soft Extremities: No clubbing, No cyanosis, No edema Neuro: Other (intubated/sedated) Psych/Mental Status: Other (intubated/sedated) All Results(Lab/Rad) Laboratory Tests Test 09/03/20 21:02 09/04/20 04:47 09/04/20 05:59 09/04/20 07:15 Bedside Glucose 164 120 123 White Blood Count 8.1 10^3/uL Red Blood Count 4.89 10^6/uL Hemoglobin 14.2 g/dL Hematocrit 40.7 % Mean Corpuscular Volume 83.2 fL Mean Corpuscular Hemoglobin 29.0 pg Mean Corpuscular Hemoglobin Concent 34.9 g/dL Red Cell Distribution Width 12.0 % Platelet Count 185 10^3/uL Mean Platelet Volume 9.6 fL Neutrophils (%) (Auto) 83.5 % Lymphocytes (%) (Auto) 9.7 % Monocytes (%) (Auto) 6.0 % Neutrophils # (Auto) 6.8 10^3/uL Lymphocytes # (Auto) 0.79 10^3/uL1 Monocytes # (Auto) 0.5 10^3/uL Absolute Immature Granulocyte (auto 0.05 10^3 u/L Absolute Eosinophils (auto) 0.0 10^3/uL Immature Granulocytes % 0.60 % Eosinophils % 0.0 % Basophils % 0.2 % Basophils # 0.0 10^3/uL Sodium Level 132 mmol/L Potassium Level 3.6 mmol/L Chloride Level 97.0 mmol/L Carbon Dioxide Level 26.0 mmol/L Anion Gap 12.6 Blood Urea Nitrogen 21 mg/dL Creatinine 1.18 mg/dL Estimated GFR () 75.2 Est GFR (CKD-EPI)(Non-Afr Tristanian) 62.1 BUN/Creatinine Ratio 17.0 Glucose Level 118 mg/dL Hemoglobin A1c 8.0 % Calcium Level 8.3 mg/dL Total Bilirubin 0.7 mg/dL Aspartate Amino Transf (AST/SGOT) 55 U/L Alanine Aminotransferase (ALT/SGPT) 37 U/L Alkaline Phosphatase 40 U/L Total Protein 6.5 g/dL Albumin 2.3 g/dL Globulin 4.2 Albumin/Globulin Ratio 0.547 Triglycerides Level 65 mg/dL Cholesterol Level 76 mg/dL LDL Cholesterol, Calculated 26.0 VLDL Cholesterol, Calculated 13.0 HDL Cholesterol 37 mg/dL Cholesterol Ratio (LDL/HDL) 0.7 Cholesterol/HDL Ratio [id number] Test 09/04/20 11:37 09/04/20 12:22 09/04/20 16:36 Bedside Glucose 159 131 D-Dimer 1.85 mg/L Troponin I < 0.02 ng/mL Pro-B-Type Natriuretic Peptide 97 pg/mL Current Medications Medications (Trade) Dose Ordered Sig/Adrianna Route PRN Reason Start Time Stop Time Status Last Admin Dose Admin Acetaminophen (Tylenol) 325 mg Q4H PRN PO PAIN 1 - 3 09/03/20 19:00 10/03/20 18:59 Morphine Sulfate (Morphine Sulfate) 2 mg Q4H PRN IV PAIN 4 - 6 09/03/20 19:00 09/04/20 19:28 DC Insulin Human Lispro (Humalog) 0-140 0 Units 141-200... ACHS SQ 09/03/20 21:00 10/03/20 20:59 09/04/20 11:30 Dextrose 1,000 ml @ 100 mls/hr Q10H PRN IV HYPOGLYCEMIA 09/03/20 19:00 10/03/20 18:59 Dextrose (Dextrose 50%-Water Syringe) 25 ml STAT PRN IV HYPOGLYCEMIA 09/03/20 19:00 10/03/20 18:59 Glucagon (Glucagen) 1 mg STAT STAT IV 09/03/20 18:44 09/03/20 18:56 DC Heparin Sodium (Porcine) (Heparin) 5,000 unit Q8HR SQ 09/03/20 22:00 10/03/20 21:59 09/04/20 14:00 Lisinopril (Zestril) 20 mg BID PO 09/03/20 21:00 10/03/20 20:59 09/04/20 08:22 Azithromycin 500 mg/Sodium Chloride 250 ml @ 175 mls/hr Q24HRS IV 09/03/20 20:30 09/04/20 08:15 DC 09/03/20 21:11 Ceftriaxone Sodium 1000 mg/ Sodium Chloride 100 ml @ 100 mls/hr Q24HRS IV 09/03/20 19:30 09/04/20 08:15 DC 09/03/20 19:39 Sodium Chloride 1,000 ml @ 75 mls/hr [id number] IV 09/03/20 20:00 10/03/20 19:59 09/04/20 09:20 Ceftriaxone Sodium (Rocephin) 1,000 mg STK-MED ONCE .ROUTE 09/03/20 19:35 09/03/20 19:35 DC Sodium Chloride 100 ml @ ud STK-MED ONCE IV 09/03/20 19:35 09/03/20 19:36 DC Zinc Sulfate (Zinc Sulfate) 220 mg DAILY PO 09/04/20 09:00 10/04/20 08:59 09/04/20 08:22 Ascorbic Acid (Vitamin C) 500 mg BID PO 09/04/20 09:00 10/04/20 08:59 09/04/20 08:22 Morphine Sulfate (Morphine Sulfate) 2 mg Q4H PRN IV PAIN 4 - 6 09/04/20 19:28 10/03/20 18:59 Course Sepsis Screening Results: Posi: POSITIVE++ Sepsis Qualifier/Stage: SEVERE SEPSIS RISK DATE SEEN BY PHYSICIAN: Sep 11, 2020 TIME SEEN BY PROVIDER: 13:20 Duration or Total Time Spent w: 60 mins Vitals & review Data Vital Sign - Last 24 Hours 09/11/20 09/11/20 09/11/20 09/11/20 07:00 07:00 07:30 08:00 Temp 98.0 Pulse 62 67 Resp 28 27 B/P (MAP) 160/83 (108) 150/75 (100) Pulse Ox 96 91 O2 Delivery Non-Rebreather O2 Flow Rate 15.00 09/11/20 09/11/20 09/11/20 09/11/20 08:25 08:40 09:00 09:00 Pulse 65 87 81 Resp 22 19 B/P (MAP) 149/72 149/86 Pulse Ox 93 94 O2 Delivery Non-Rebreather O2 Flow Rate 15.00 FiO2 100 09/11/20 09/11/20 09/11/20 09/11/20 09:00 10:00 11:00 12:00 Pulse 67 74 68 Resp 25 30 35 B/P (MAP) 149/72 (97) 128/69 (88) 134/65 (88) Pulse Ox 93 88 91 O2 Delivery Non-Rebreather O2 Flow Rate 15.00 Intake and Output 09/11/20 07:00 Intake Total 335 ml Output Total 670 ml Balance -335 ml Laboratory Tests Test 09/09/20 16:50 09/09/20 19:54 09/10/20 04:26 09/10/20 04:54 Bedside Glucose 192 219 93 White Blood Count 11.8 10^3/uL Red Blood Count 4.77 10^6/uL Hemoglobin 13.8 g/dL Hematocrit 39.8 % Mean Corpuscular Volume 83.4 fL Mean Corpuscular Hemoglobin 28.9 pg Mean Corpuscular Hemoglobin Concent 34.7 g/dL Red Cell Distribution Width 12.3 % Platelet Count 361 10^3/uL Mean Platelet Volume 9.2 fL Neutrophils (%) (Auto) 84.0 % Lymphocytes (%) (Auto) 9.0 % Monocytes (%) (Auto) 4.8 % Neutrophils # (Auto) 9.9 10^3/uL Lymphocytes # (Auto) 1.06 10^3/uL1 Monocytes # (Auto) 0.6 10^3/uL Absolute Immature Granulocyte (auto 0.23 10^3 u/L Absolute Eosinophils (auto) 0.0 10^3/uL Immature Granulocytes % 2.00 % Eosinophils % 0.1 % Basophils % 0.1 % Basophils # 0.0 10^3/uL D-Dimer 8.09 mg/L Sodium Level 140 mmol/L Potassium Level 3.7 mmol/L Chloride Level 106.0 mmol/L Carbon Dioxide Level 27.2 mmol/L Anion Gap 10.5 Blood Urea Nitrogen 19 mg/dL Creatinine 0.96 mg/dL Estimated GFR () 95.4 Est GFR (CKD-EPI)(Non-Afr Tristanian) 78.9 BUN/Creatinine Ratio 19.0 Glucose Level 100 mg/dL Calcium Level 7.9 mg/dL Phosphorus Level 2.4 mg/dL Magnesium Level 1.8 mg/dL Ferritin 1073 ng/mL Total Bilirubin 0.7 mg/dL Aspartate Amino Transf (AST/SGOT) 27 U/L Alanine Aminotransferase (ALT/SGPT) 29 U/L Alkaline Phosphatase 58 U/L Lactate Dehydrogenase 295 U/L Total Creatine Kinase 41 U/L C-Reactive Protein 3.25 mg/dL Total Protein 5.7 g/dL Albumin 2.0 g/dL Globulin 3.7 Albumin/Globulin Ratio 0.540 Procalcitonin 0.10 ng/mL Test 09/10/20 07:10 09/10/20 11:33 09/10/20 16:46 09/10/20 19:51 Bedside Glucose 134 173 178 169 Test 09/11/20 01:56 09/11/20 02:03 09/11/20 05:13 09/11/20 05:14 Bedside Glucose 159 145 Blood Gas Sample Site LB Blood Gas pH 7.398 Blood Gas PCO2 31.4 mmHg Blood Gas PO2 54.5 mmHg Blood Gas HCO3 18.9 mmol/L Blood Gas Base Excess -4.8 mmol/L Abdi Test POSITIVE Arterial Blood Oxygen Saturation 87.1 % Deoxyhemoglobin 12.9 % Carboxyhemoglobin 0.3 % Methemoglobin 0.0 % Total Hemoglobin 13.4 % Total Oxygen Concentration 16.3 % Blood Gas Temperature 37 Oxygen Delivery Method (LAB) NON-REBREATHER MASK FiO2 100 % Total Carbon Dioxide 19.9 mmol/L White Blood Count 11.5 10^3/uL Red Blood Count 4.66 10^6/uL Hemoglobin 13.4 g/dL Hematocrit 39.1 % Mean Corpuscular Volume 83.9 fL Mean Corpuscular Hemoglobin 28.8 pg Mean Corpuscular Hemoglobin Concent 34.3 g/dL Red Cell Distribution Width 12.2 % Platelet Count 296 10^3/uL Mean Platelet Volume 9.2 fL Neutrophils (%) (Auto) 87.0 % Lymphocytes (%) (Auto) 5.9 % Monocytes (%) (Auto) 5.0 % Neutrophils # (Auto) 10.0 10^3/uL Lymphocytes # (Auto) 0.68 10^3/uL1 Monocytes # (Auto) 0.6 10^3/uL Absolute Immature Granulocyte (auto 0.23 10^3 u/L Absolute Eosinophils (auto) 0.0 10^3/uL Immature Granulocytes % 2.00 % Eosinophils % 0.0 % Basophils % 0.1 % Basophils # 0.0 10^3/uL Sodium Level 139 mmol/L Potassium Level 3.9 mmol/L Chloride Level 106.0 mmol/L Carbon Dioxide Level 23.2 mmol/L Anion Gap 13.7 Blood Urea Nitrogen 22 mg/dL Creatinine 0.88 mg/dL Estimated GFR () 105.5 Est GFR (CKD-EPI)(Non-Afr Tristanian) 87.2 BUN/Creatinine Ratio 25.0 Glucose Level 151 mg/dL Calcium Level 8.3 mg/dL Phosphorus Level 3.1 mg/dL Magnesium Level 2.3 mg/dL Total Bilirubin 0.7 mg/dL Aspartate Amino Transf (AST/SGOT) 27 U/L Alanine Aminotransferase (ALT/SGPT) 23 U/L Alkaline Phosphatase 71 U/L Total Protein 5.7 g/dL Albumin 2.0 g/dL Globulin 3.7 Albumin/Globulin Ratio 0.540 Test 09/11/20 05:41 09/11/20 07:35 09/11/20 07:50 09/11/20 11:42 Blood Gas Sample Site RT RADIAL ARTERY RR Blood Gas pH 7.405 7.398 Blood Gas PCO2 35.2 mmHg 36.1 mmHg Blood Gas PO2 53.5 mmHg 52.5 mmHg Blood Gas HCO3 21.6 mmol/L 21.8 mmol/L Blood Gas Base Excess -2.5 mmol/L -2.5 mmol/L Abdi Test POSITIVE POSITIVE Arterial Blood Oxygen Saturation 87.9 % 86.0 % Deoxyhemoglobin 12.1 % 13.9 % Carboxyhemoglobin 0 % 0.6 % Methemoglobin 0.1 % 0.3 % Total Hemoglobin 14.0 % 13.9 % Total Oxygen Concentration 17.3 % 16.6 % Blood Gas Temperature 37 37 Oxygen Delivery Method (LAB) NON-REBREATHER MASK NON-REBREATHER MASK FiO2 100 % 100 % Total Carbon Dioxide 22.6 mmol/L 22.9 mmol/L Bedside Glucose 133 185 Current Medications Medications (Trade) Dose Ordered Sig/Adrianna PRN Reason Start Time Stop Time Status Last Admin Enoxaparin Sodium (Lovenox) 80 mg BID 09/09/20 19:00 10/04/20 20:29 09/11/20 09:00 Lorazepam (Ativan) 1 mg Q4HR PRN ANXIETY 09/11/20 00:30 10/11/20 00:29 09/11/20 09:00 Metoprolol Tartrate (Lopresser) 25 mg BID 09/09/20 21:00 10/09/20 20:59 09/11/20 09:00 Remdesivir 100 mg/ Sodium Chloride 120 ml @ 111.111 mls/hr Q24HRS 09/08/20 19:00 10/08/20 18:59 09/10/20 18:00 LEVEL 1 SEPSIS INFECTION CRITE: Cough/Shortness of Breath, Flu-Pneumonia LEVEL 2-SIRS (LIST ALL THAT AP: RR>20/min, WBC>[id number] Cardiovascular Evidence: Not Assessed or None Hematologic Evidence: None/Not assessed Hepatic Evidence: None/Not assessed Metabolic Evidence: None/Not assessed Neurological Evidence: Altered Mental Status Respiratory Evidence: Acute Resp failure, Need for O2 to keep>90%, O2 SAT<90room air Renal Evidence: None/Not assessed O2 Sat by Pulse Oximetry: 95 Oxygen Flow Rate: 70.00 Assessment/Plan Assessment/Plan Assessment/Plan Assessment/Plan A 64 y.o. male w/ PMHx significant for HTN, HLD, DM II, who was admitted on Sep 03 for Acute Hypoxemic respiratory failure. Initially, his COVID testing returned negative and his hypoxemia was thought to be 2/2 another etiology. However, after no etiology could be elucidated, a COVID PCR was repeated and returned positive. He was then started on treatment for COVID-19 with Azithromycin, steroids, Remdesivir, CCP, and Zinc/Vitamin C. Despite treatment, his respiratory status slowly declined and he was intubated on Sep 13. At this time, he is stable on current sedation and intermittently requiring pressors pressors. He was started on proning protocol on Sep 18, 16h prone and 8h supine. This was held starting the evening of Sep 21 due to periorbital edema and bere mosis, which resolved spontaneously. He fevered again to 101F on Sep 23 and had repeat Blood, urine, and sputum cultures drawn. At this time, he has made very little progress towards being weaned from the vent and is approaching 14 days of ventilation. I discussed this with his daughters, and explained that he would not be a good candidate for a tracheostomy as he has made very little progress to this point. However, will defer further discussions for a later date. COVID PNEUMONIA SEVERE ARDS ACUTE HYPOXEMIC RESPIRATORY FAILURE SEPTIC SHOCK - Telemed [employer]ists following; appreciate assistance with vent and medical management - Completed 5 days of Remdesivir - Completed 5 days of Azithromycin - Pt was started on Dexamethasone initially for treatment of COVID; he was transitioned to Methylprednisolone at some point, which was discontinued on Sep 17. - Pt has completed 5 days of Rocephin for CAP PNA today; will discontinue - Duonebs q4h scheduled - Given P/F ratio, will start proning. 16h prone, 8h supine. holding proning due to periorbital edema and chemosis - continue sedation with RASS goal of < - 2 - minimize vec pushes if possible - Pt meets criteria for septic shock given +SIRS, infection, and hypotension requiring pressors - goal fluid balance should be negative to keep Pt as dry as possible - follow repeat Blood/urine/sputum cultures; so far no growth to date - decreased lasix to 20mg daily ESSENTIAL HYPERTENSION - stable with pressors - holding home antihypertensives for now T2DM - blood sugars very labile - decreased insulin to just Sliding scale due to hypoglycemia at night - enteral feeding ongoing STAGE I ZOEY, resolved - likely pre-renal given hypotension and septic shock requiring pressors - continue to monitor Cr closely; currently on the downtrend - avoid further hypotension Keep MAP > 60 - avoid nephrotoxins where possible - monitor UOP; - Keep pt as dry as possible while maintaining UOP/renal function Hypoalbuminemia, improved - albumin very low at 1.2 [09/21]; improved to 1.4 with 25% Albumin - Gave 25% Albumin q8h x3 Sep 22. Albumin improved to 2.5 - monitor Feeding - GLUCERNA 1.5CAL Analgesia - fentanyl gtt Sedation - Propofol. precedex, versed VTE ppx - lovenox Head of bed - 30 degrees GI ppx - protonix Spontaneous breathing trial - weening PEEP to 8 today Bowels care - having regular BMs UOP - Crawford in place Critical care recommendations: #1 Neuro: The pt is intubated and sedated on prop and fentanyl. #2 CV: THe pt has been normotensive but will prn need levo to keep MAP >65. #3 Pulm: The pt is tx with remdesivir lovenox and decadron. VEnt settings of 60% on 10 PEEP. The pt also has evidence of PNA with enterobacter on cefepime and vanco. Treat 7 days. #4 GI: COnt tf #5 Renal: Monitor for renal failure, replete lytes, lasix PRN #6 ID: [id number] + #7 Endo: keep FS 150-180 #8 Heme: Tx plats >10k hgb >7 #9 PPx: lovenox and PPI HUSEYIN SHERMAN MD Sep 27, 2020 10:47
--- NOTE | 2020-09-27 13:29 | DIREP ---
PROCEDURE:CHEST 1 VIEW COMPARISON:[facility], CR, XRAY CHEST SINGLE VW, 09/24/2020, 07:51 AM. [facility], CR, XRAY CHEST SINGLE VW, 09/23/2020, 04:06 AM. INDICATIONS:pneumonia FINDINGS: LUNGS/PLEURA:Multifocal patchy airspace disease with peripherally oriented opacities having progressed from prior examination. VASCULATURE:Normal. Unremarkable pulmonary vasculature. CARDIAC:Normal. No cardiac silhouette abnormality or cardiomegaly. MEDIASTINUM:Normal. No visible mass or adenopathy. BONES:Normal. No fracture or visible bony lesion. OTHER:Endotracheal tube projects over T4. Nasogastric tube subdiaphragmatic. Right PICC with tip projecting from the upper SVC. CONCLUSION: 1. Progression of pneumonia. Imaging features can be seen with COVID-19 pneumonia though are nonspecific and can occur with a variety of infectious and noninfectious processes. 2. Support lines and tubes as above. Dictated by: Sarabjit Sherman M.D. On 09/27/2020 at 01:25 PM
--- NOTE | 2020-09-27 15:33 | TELE.CONS ---
Consultation Reason for Consult: Reason for Consultation: COvid PNA History of Present Illness History of Patient Comments The pt is intubated and sedated. Review of Systems Constitutional: Weakness; No: Fever, Chills, Sweats, Malaise, Other Eyes: No: Pain, Vision change, Conjunctivae inflammation, Eyelid inflammation, Other, Redness ENT: No: Ear pain, Ear discharge, Nose pain, Nose discharge, Nose congestion, Mouth pain, Mouth swelling, Throat pain, Throat swelling, Other Respiratory: Shortness of breath Cardiovascular: No: Chest Pain, Palpitations, Orthopnea, Paroxysmal Noc. Dysp genesis, Edema, Lt Headedness, Other Gastrointestinal: No: Nausea, Vomiting, Abdominal Pain, Diarrhea, Constipation, Melena, Hematochezia, Other Genitourinary: No Dysuria, No Frequency, No Incontinence, No Hematuria, No Retention, No Other Musculoskeletal: No: other, neck pain, shoulder pain, arm pain, back pain, hand pain, leg pain, foot pain Skin: No: Rash, Lesions, Jaundice, Bruising, Other Allergies: Coded Allergies: No Known Allergies (Unverified , 09/03/20) Scheduled Lisinopril (Lisinopril), 1 TAB PO BID, (Reported) Metformin Hcl (Metformin Hcl), 1,000 MG PO BID, (Reported) VITALS REVIEW VITALS Vital Sign - Last 24 Hours 09/27/20 09/27/20 09/27/20 09/27/20 07:00 07:15 07:30 07:45 Temp 100.4 100.6 100.6 100.8 Pulse 102 102 102 102 Resp B/P (MAP) 122/39 (66) 139/62 (87) 128/39 (68) 137/62 (87) 131/60 (83) 137/61 (86) Pulse Ox 98 97 98 97 09/27/20 09/27/20 09/27/20 09/27/20 07:59 08:00 08:00 08:00 Pulse 102 103 114 Resp Pulse Ox 98 98 94 O2 Delivery Mechanical Ventilator Mechanical Ventilator FiO2 70 60 60 09/27/20 09/27/20 09/27/20 09/27/20 08:00 08:00 08:15 08:30 Temp 100.8 100.9 101.1 Pulse 103 103 102 Resp B/P (MAP) 144/47 (79) 134/61 (85) 120/50 (73) 138/63 (88) 136/61 (86) Pulse Ox 97 95 95 O2 Delivery Mechanical Ventilator FiO2 60 09/27/20 09/27/20 09/27/20 09/27/20 08:45 09:00 09:15 09:30 Temp 100.9 100.9 101.1 101.1 Pulse 107 109 112 115 Resp B/P (MAP) 179/76 (110) 143/49 (80) 155/65 (95) 145/61 (89) 151/68 (95) Pulse Ox 94 95 94 93 09/27/20 09/27/20 09/27/20 09/27/20 09:45 10:00 10:14 10:15 Temp 101.1 101.3 101.1 Pulse 113 111 110 108 Resp B/P (MAP) 137/58 (84) 125/43 (70) 143/62 (89) 136/59 (84) Pulse Ox 93 94 95 95 FiO2 60 09/27/20 09/27/20 09/27/20 09/27/20 10:30 10:45 11:00 11:15 Temp 101.1 100.9 100.6 100.4 Pulse 106 105 104 103 Resp B/P (MAP) 128/58 (81) 119/56 (77) 115/43 (67) 121/57 (78) 121/57 (78) Pulse Ox 95 97 98 98 09/27/20 09/27/20 09/27/20 09/27/20 11:30 11:45 12:00 12:00 Temp 100.2 100.0 99.9 Pulse 102 102 101 Resp B/P (MAP) 119/56 (77) 125/59 (81) 121/48 (72) 123/59 (80) Pulse Ox 98 98 99 O2 Delivery Mechanical Ventilator 09/27/20 09/27/20 09/27/20 12:00 12:00 14:27 Pulse 96 96 Resp Pulse Ox 99 97 O2 Delivery Mechanical Ventilator FiO2 60 60 60 Intake and Output 09/27/20 05:59 Intake Total 3198.96 ml Output Total 4675 ml Balance -1476.04 ml LABS LAB RESULTS Laboratory Tests Test 09/03/20 18:04 09/03/20 18:37 09/03/20 21:02 09/04/20 04:47 Bedside Glucose 104 164 Nasal Adenovirus (PCR) NotDetected Nasal Coronavirus Type 229E (PCR) NotDetected Nasal Coronavirus Type HKU1 (PCR) NotDetected Nasal Coronavirus Type NL63 (PCR) NotDetected Nasal Coronavirus Type OC43 (PCR) NotDetected Nasal Enterovirus/Rhinovirus (PCR) NotDetected Nasal Influenza Type A (H1) (PCR) NotDetected Nasal Influenza Type A (H3) (PCR) NotDetected Nasal Swab Influenza Virus B (PCR) NotDetected Nasal Parainfluenza Type 1 (PCR) NotDetected Nasal Parainfluenza Type 2 (PCR) NotDetected Nasal Parainfluenza Type 3 (PCR) NotDetected Nasal Parainfluenza Type 4 (PCR) NotDetected Nasal Resp Syncytial Virus (PCR) NotDetected Nasal Bordetella pertussis DNA (PCR NotDetected Nasal Chlamydophila pneumoniae (PCR NotDetected Nasal Human Metapneumovirus (PCR) NotDetected Nasal Mycoplasma pneumoniae (PCR) NotDetected Nasal SARS-CoV-2 (PCR) NotDetected Influenza Type A (H1N1/09) (PCR) NotDetected White Blood Count 8.1 10^3/uL Red Blood Count 4.89 10^6/uL Hemoglobin 14.2 g/dL Hematocrit 40.7 % Mean Corpuscular Volume 83.2 fL Mean Corpuscular Hemoglobin 29.0 pg Mean Corpuscular Hemoglobin Concent 34.9 g/dL Red Cell Distribution Width 12.0 % Platelet Count 185 10^3/uL Mean Platelet Volume 9.6 fL Neutrophils (%) (Auto) 83.5 % Lymphocytes (%) (Auto) 9.7 % Monocytes (%) (Auto) 6.0 % Neutrophils # (Auto) 6.8 10^3/uL Lymphocytes # (Auto) 0.79 10^3/uL1 Monocytes # (Auto) 0.5 10^3/uL Absolute Immature Granulocyte (auto 0.05 10^3 u/L Absolute Eosinophils (auto) 0.0 10^3/uL Immature Granulocytes % 0.60 % Eosinophils % 0.0 % Basophils % 0.2 % Basophils # 0.0 10^3/uL Sodium Level 132 mmol/L Potassium Level 3.6 mmol/L Chloride Level 97.0 mmol/L Carbon Dioxide Level 26.0 mmol/L Anion Gap 12.6 Blood Urea Nitrogen 21 mg/dL Creatinine 1.18 mg/dL Estimated GFR () 75.2 Est GFR (CKD-EPI)(Non-Afr Nigerien) 62.1 BUN/Creatinine Ratio 17.0 Glucose Level 118 mg/dL Hemoglobin A1c 8.0 % Calcium Level 8.3 mg/dL Total Bilirubin 0.7 mg/dL Aspartate Amino Transf (AST/SGOT) 55 U/L Alanine Aminotransferase (ALT/SGPT) 37 U/L Alkaline Phosphatase 40 U/L Total Protein 6.5 g/dL Albumin 2.3 g/dL Globulin 4.2 Albumin/Globulin Ratio 0.547 Triglycerides Level 65 mg/dL Cholesterol Level 76 mg/dL LDL Cholesterol, Calculated 26.0 VLDL Cholesterol, Calculated 13.0 HDL Cholesterol 37 mg/dL Cholesterol Ratio (LDL/HDL) 0.7 Cholesterol/HDL Ratio [id number] Test 09/04/20 05:59 09/04/20 07:15 09/04/20 11:37 09/04/20 12:22 Bedside Glucose 120 123 159 D-Dimer 1.85 mg/L Troponin I < 0.02 ng/mL Pro-B-Type Natriuretic Peptide 97 pg/mL Test 09/04/20 16:36 09/04/20 20:39 09/04/20 20:54 09/05/20 00:10 Bedside Glucose 131 158 Procalcitonin 0.74 ng/mL Yeast/Fungal Identification Test 09/05/20 04:05 09/05/20 05:40 09/05/20 08:09 09/05/20 09:30 White Blood Count 8.7 10^3/uL Red Blood Count 4.49 10^6/uL Hemoglobin 13.2 g/dL Hematocrit 38.0 % Mean Corpuscular Volume 84.6 fL Mean Corpuscular Hemoglobin 29.4 pg Mean Corpuscular Hemoglobin Concent 34.7 g/dL Red Cell Distribution Width 12.0 % Platelet Count 226 10^3/uL Mean Platelet Volume 9.6 fL Neutrophils (%) (Auto) 83.5 % Lymphocytes (%) (Auto) 10.2 % Monocytes (%) (Auto) 5.5 % Neutrophils # (Auto) 7.3 10^3/uL Lymphocytes # (Auto) 0.89 10^3/uL1 Monocytes # (Auto) 0.5 10^3/uL Absolute Immature Granulocyte (auto 0.05 10^3 u/L Absolute Eosinophils (auto) 0.0 10^3/uL Immature Granulocytes % 0.60 % Eosinophils % 0.1 % Basophils % 0.1 % Basophils # 0.0 10^3/uL Sodium Level 136 mmol/L Potassium Level 3.5 mmol/L Chloride Level 103.0 mmol/L Carbon Dioxide Level 24.3 mmol/L Anion Gap 12.2 Blood Urea Nitrogen 20 mg/dL Creatinine 1.01 mg/dL Estimated GFR () 90.0 Est GFR (CKD-EPI)(Non-Afr [place]ien) 74.4 BUN/Creatinine Ratio 19.0 Glucose Level 104 mg/dL Calcium Level 8.1 mg/dL Phosphorus Level 2.5 mg/dL Magnesium Level 2.2 mg/dL Total Bilirubin 0.5 mg/dL Aspartate Amino Transf (AST/SGOT) 46 U/L Alanine Aminotransferase (ALT/SGPT) 29 U/L Alkaline Phosphatase 38 U/L Total Protein 6.1 g/dL Albumin 2.1 g/dL Globulin 4.0 Albumin/Globulin Ratio 0.525 Bedside Glucose 99 95 Nasal Adenovirus (PCR) NotDetected Nasal Coronavirus Type 229E (PCR) NotDetected Nasal Coronavirus Type HKU1 (PCR) NotDetected Nasal Coronavirus Type NL63 (PCR) NotDetected Nasal Coronavirus Type OC43 (PCR) NotDetected Nasal Enterovirus/Rhinovirus (PCR) NotDetected Nasal Influenza Type A (H1) (PCR) NotDetected Nasal Influenza Type A (H3) (PCR) NotDetected Nasal Swab Influenza Virus B (PCR) NotDetected Nasal Parainfluenza Type 1 (PCR) NotDetected Nasal Parainfluenza Type 2 (PCR) NotDetected Nasal Parainfluenza Type 3 (PCR) NotDetected Nasal Parainfluenza Type 4 (PCR) NotDetected Nasal Resp Syncytial Virus (PCR) NotDetected Nasal Bordetella pertussis DNA (PCR NotDetected Nasal Chlamydophila pneumoniae (PCR NotDetected Nasal Human Metapneumovirus (PCR) NotDetected Nasal Mycoplasma pneumoniae (PCR) NotDetected Nasal SARS-CoV-2 (PCR) DETECTED Influenza Type A (H1N1/) (PCR) NotDetected Test 09/05/20 10:24 09/05/20 12:44 09/05/20 17:15 09/05/20 19:49 Erythrocyte Sedimentation Rate 78 mm/hr C-Reactive Protein 13.99 mg/dL Anti-Nuclear FA Antibody Screen Negative Anti-Nuclear Ab Homogeneous Pattern Anti-Nuclear Ab Nucleolar Pattern Anti-Nuclear Ab Speckled Pattern Anti-Nuclear Ab Centromere Pattern Anti-Nuclear Antibody Comment Cytoplasmic ANCA (c-ANCA) Antibody <1:20 titer Atypical p-ANCA <1:20 titer Perinuclear ANCA (p-ANCA) Antibody <1:20 titer HIV-1 Antibody NON-REACTIVE HIV-2 Antibody NON-REACTIVE Bedside Glucose 88 154 141 Test 09/06/20 04:09 09/06/20 05:29 09/06/20 11:39 09/06/20 16:09 White Blood Count 7.7 10^3/uL Red Blood Count 4.20 10^6/uL Hemoglobin 12.5 g/dL Hematocrit 35.4 % Mean Corpuscular Volume 84.3 fL Mean Corpuscular Hemoglobin 29.8 pg Mean Corpuscular Hemoglobin Concent 35.3 g/dL Red Cell Distribution Width 11.9 % Platelet Count 208 10^3/uL Mean Platelet Volume 10.4 fL Neutrophils (%) (Auto) 82.7 % Lymphocytes (%) (Auto) 8.5 % Monocytes (%) (Auto) 7.8 % Neutrophils # (Auto) 6.3 10^3/uL Lymphocytes # (Auto) 0.65 10^3/uL1 Monocytes # (Auto) 0.6 10^3/uL Absolute Immature Granulocyte (auto 0.04 10^3 u/L Absolute Eosinophils (auto) 0.0 10^3/uL Immature Granulocytes % 0.50 % Eosinophils % 0.1 % Basophils % 0.4 % Basophils # 0.0 10^3/uL Sodium Level 137 mmol/L Potassium Level 3.5 mmol/L Chloride Level 104.0 mmol/L Carbon Dioxide Level 23.9 mmol/L Anion Gap 12.6 Blood Urea Nitrogen 17 mg/dL Creatinine 0.94 mg/dL Estimated GFR () 97.8 Est GFR (CKD-EPI)(Non-Afr [place]ien) 80.8 BUN/Creatinine Ratio 18.0 Glucose Level 181 mg/dL Calcium Level 8.0 mg/dL Phosphorus Level 3.2 mg/dL Magnesium Level 2.2 mg/dL Total Bilirubin 0.5 mg/dL Aspartate Amino Transf (AST/SGOT) 45 U/L Alanine Aminotransferase (ALT/SGPT) 28 U/L Alkaline Phosphatase 38 U/L Total Protein 5.9 g/dL Albumin 1.8 g/dL Globulin 4.1 Albumin/Globulin Ratio 0.439 Bedside Glucose 166 133 192 Test 09/06/20 19:56 09/07/20 05:22 09/07/20 07:46 09/07/20 10:47 Bedside Glucose 190 181 222 238 Test 09/07/20 17:34 09/07/20 17:36 09/07/20 18:20 09/07/20 18:59 Bedside Glucose 220 236 Blood Gas Sample Site RR Blood Gas pH 7.403 Blood Gas PCO2 30.6 mmHg Blood Gas PO2 62.4 mmHg Blood Gas HCO3 18.7 mmol/L Blood Gas Base Excess -4.8 mmol/L Abdi Test POSITIVE Arterial Blood Oxygen Saturation 92.1 % Deoxyhemoglobin 7.8 % Carboxyhemoglobin 0.7 % Methemoglobin 0.2 % Total Hemoglobin 14.6 % Total Oxygen Concentration 18.7 % Blood Gas Temperature 37.0 Oxygen Delivery Method (LAB) NON-REBREATHER MASK FiO2 100 % Total Carbon Dioxide 19.6 mmol/L Hemoglobin 14.0 g/dL Hematocrit 40.0 % Platelet Count 386 10^3/uL Prothrombin Time 11.2 SEC Prothrombin Time INR (Non-Therap) 1.1 Fibrinogen > 450 mg/dL Test 09/07/20 20:18 09/08/20 05:14 09/08/20 05:20 09/08/20 06:57 Bedside Glucose 226 204 White Blood Count 11.7 10^3/uL Red Blood Count 4.60 10^6/uL Hemoglobin 13.4 g/dL Hematocrit 38.5 % Mean Corpuscular Volume 83.7 fL Mean Corpuscular Hemoglobin 29.1 pg Mean Corpuscular Hemoglobin Concent 34.8 g/dL Red Cell Distribution Width 12.0 % Platelet Count 360 10^3/uL Mean Platelet Volume 9.7 fL Neutrophils (%) (Auto) 89.4 % Lymphocytes (%) (Auto) 4.8 % Monocytes (%) (Auto) 4.9 % Neutrophils # (Auto) 10.5 10^3/uL Lymphocytes # (Auto) 0.56 10^3/uL1 Monocytes # (Auto) 0.6 10^3/uL Absolute Immature Granulocyte (auto 0.08 10^3 u/L Absolute Eosinophils (auto) 0.0 10^3/uL Immature Granulocytes % 0.70 % Eosinophils % 0.0 % Basophils % 0.2 % Basophils # 0.0 10^3/uL D-Dimer 4.40 mg/L Sodium Level 139 mmol/L Potassium Level 3.4 mmol/L Chloride Level 108.0 mmol/L Carbon Dioxide Level 21.4 mmol/L Anion Gap 13.0 Blood Urea Nitrogen 22 mg/dL Creatinine 0.87 mg/dL Estimated GFR () 106.9 Est GFR (CKD-EPI)(Non-Afr [place]ien) 88.3 BUN/Creatinine Ratio 25.0 Glucose Level 214 mg/dL Calcium Level 8.1 mg/dL Phosphorus Level 2.2 mg/dL Magnesium Level 2.2 mg/dL Ferritin 1364 ng/mL Total Bilirubin 0.3 mg/dL Aspartate Amino Transf (AST/SGOT) 44 U/L Alanine Aminotransferase (ALT/SGPT) 23 U/L Alkaline Phosphatase 45 U/L Lactate Dehydrogenase 300 U/L Total Creatine Kinase 48 U/L C-Reactive Protein 3.22 mg/dL Total Protein 5.9 g/dL Albumin 2.0 g/dL Globulin 3.9 Albumin/Globulin Ratio 0.512 Procalcitonin 0.29 ng/mL Segmented Neutrophils 95 % Lymphocytes 4 % Monocytes 1 % Platelet Estimate ADEQUATE Platelet Morphology NORMAL Test 09/08/20 07:39 09/08/20 11:31 09/08/20 16:25 09/08/20 20:15 Bedside Glucose 223 208 183 217 Test 09/09/20 05:05 09/09/20 06:31 09/09/20 07:23 09/09/20 07:39 Bedside Glucose 169 231 White Blood Count 11.5 10^3/uL Red Blood Count 4.52 10^6/uL Hemoglobin 13.1 g/dL Hematocrit 37.4 % Mean Corpuscular Volume 82.7 fL Mean Corpuscular Hemoglobin 29.0 pg Mean Corpuscular Hemoglobin Concent 35.0 g/dL Red Cell Distribution Width 12.0 % Platelet Count 367 10^3/uL Mean Platelet Volume 9.2 fL Neutrophils (%) (Auto) 87.0 % Lymphocytes (%) (Auto) 5.3 % Monocytes (%) (Auto) 7.0 % Neutrophils # (Auto) 10.0 10^3/uL Lymphocytes # (Auto) 0.61 10^3/uL1 Monocytes # (Auto) 0.8 10^3/uL Absolute Immature Granulocyte (auto 0.07 10^3 u/L Absolute Eosinophils (auto) 0.0 10^3/uL Immature Granulocytes % 0.60 % Eosinophils % 0.0 % Basophils % 0.1 % Basophils # 0.0 10^3/uL Sodium Level 141 mmol/L Potassium Level 3.9 mmol/L Chloride Level 109.0 mmol/L Carbon Dioxide Level 22.4 mmol/L Anion Gap 13.5 Blood Urea Nitrogen 22 mg/dL Creatinine 0.81 mg/dL Estimated GFR () 116.1 Est GFR (CKD-EPI)(Non-Afr [place]ien) 95.9 BUN/Creatinine Ratio 27.0 Glucose Level 187 mg/dL Calcium Level 7.9 mg/dL Phosphorus Level 2.7 mg/dL Magnesium Level 2.0 mg/dL Total Bilirubin 0.4 mg/dL Aspartate Amino Transf (AST/SGOT) 32 U/L Alanine Aminotransferase (ALT/SGPT) 29 U/L Alkaline Phosphatase 44 U/L Total Protein 5.5 g/dL Albumin 2.0 g/dL Globulin 3.5 Albumin/Globulin Ratio 0.571 Segmented Neutrophils 91 % Lymphocytes 5 % Monocytes 4 % Platelet Estimate ADEQUATE Platelet Morphology NORMAL Test 09/09/20 11:15 09/09/20 16:50 09/09/20 19:54 09/10/20 04:26 Bedside Glucose 236 192 219 White Blood Count 11.8 10^3/uL Red Blood Count 4.77 10^6/uL Hemoglobin 13.8 g/dL Hematocrit 39.8 % Mean Corpuscular Volume 83.4 fL Mean Corpuscular Hemoglobin 28.9 pg Mean Corpuscular Hemoglobin Concent 34.7 g/dL Red Cell Distribution Width 12.3 % Platelet Count 361 10^3/uL Mean Platelet Volume 9.2 fL Neutrophils (%) (Auto) 84.0 % Lymphocytes (%) (Auto) 9.0 % Monocytes (%) (Auto) 4.8 % Neutrophils # (Auto) 9.9 10^3/uL Lymphocytes # (Auto) 1.06 10^3/uL1 Monocytes # (Auto) 0.6 10^3/uL Absolute Immature Granulocyte (auto 0.23 10^3 u/L Absolute Eosinophils (auto) 0.0 10^3/uL Immature Granulocytes % 2.00 % Eosinophils % 0.1 % Basophils % 0.1 % Basophils # 0.0 10^3/uL D-Dimer 8.09 mg/L Sodium Level 140 mmol/L Potassium Level 3.7 mmol/L Chloride Level 106.0 mmol/L Carbon Dioxide Level 27.2 mmol/L Anion Gap 10.5 Blood Urea Nitrogen 19 mg/dL Creatinine 0.96 mg/dL Estimated GFR () 95.4 Est GFR (CKD-EPI)(Non-Afr [place]ien) 78.9 BUN/Creatinine Ratio 19.0 Glucose Level 100 mg/dL Calcium Level 7.9 mg/dL Phosphorus Level 2.4 mg/dL Magnesium Level 1.8 mg/dL Ferritin 1073 ng/mL Total Bilirubin 0.7 mg/dL Aspartate Amino Transf (AST/SGOT) 27 U/L Alanine Aminotransferase (ALT/SGPT) 29 U/L Alkaline Phosphatase 58 U/L Lactate Dehydrogenase 295 U/L Total Creatine Kinase 41 U/L C-Reactive Protein 3.25 mg/dL Total Protein 5.7 g/dL Albumin 2.0 g/dL Globulin 3.7 Albumin/Globulin Ratio 0.540 Procalcitonin 0.10 ng/mL Test 09/10/20 04:54 09/10/20 07:10 09/10/20 11:33 09/10/20 16:46 Bedside Glucose 93 134 173 178 Test 09/10/20 19:51 09/11/20 01:56 09/11/20 02:03 09/11/20 05:13 Bedside Glucose 169 159 145 Blood Gas Sample Site LB Blood Gas pH 7.398 Blood Gas PCO2 31.4 mmHg Blood Gas PO2 54.5 mmHg Blood Gas HCO3 18.9 mmol/L Blood Gas Base Excess -4.8 mmol/L Abdi Test POSITIVE Arterial Blood Oxygen Saturation 87.1 % Deoxyhemoglobin 12.9 % Carboxyhemoglobin 0.3 % Methemoglobin 0.0 % Total Hemoglobin 13.4 % Total Oxygen Concentration 16.3 % Blood Gas Temperature 37 Oxygen Delivery Method (LAB) NON-REBREATHER MASK FiO2 100 % Total Carbon Dioxide 19.9 mmol/L Test 09/11/20 05:14 09/11/20 05:41 09/11/20 07:35 09/11/20 07:50 White Blood Count 11.5 10^3/uL Red Blood Count 4.66 10^6/uL Hemoglobin 13.4 g/dL Hematocrit 39.1 % Mean Corpuscular Volume 83.9 fL Mean Corpuscular Hemoglobin 28.8 pg Mean Corpuscular Hemoglobin Concent 34.3 g/dL Red Cell Distribution Width 12.2 % Platelet Count 296 10^3/uL Mean Platelet Volume 9.2 fL Neutrophils (%) (Auto) 87.0 % Lymphocytes (%) (Auto) 5.9 % Monocytes (%) (Auto) 5.0 % Neutrophils # (Auto) 10.0 10^3/uL Lymphocytes # (Auto) 0.68 10^3/uL1 Monocytes # (Auto) 0.6 10^3/uL Absolute Immature Granulocyte (auto 0.23 10^3 u/L Absolute Eosinophils (auto) 0.0 10^3/uL Immature Granulocytes % 2.00 % Eosinophils % 0.0 % Basophils % 0.1 % Basophils # 0.0 10^3/uL Sodium Level 139 mmol/L Potassium Level 3.9 mmol/L Chloride Level 106.0 mmol/L Carbon Dioxide Level 23.2 mmol/L Anion Gap 13.7 Blood Urea Nitrogen 22 mg/dL Creatinine 0.88 mg/dL Estimated GFR () 105.5 Est GFR (CKD-EPI)(Non-Afr [place]ien) 87.2 BUN/Creatinine Ratio 25.0 Glucose Level 151 mg/dL Calcium Level 8.3 mg/dL Phosphorus Level 3.1 mg/dL Magnesium Level 2.3 mg/dL Total Bilirubin 0.7 mg/dL Aspartate Amino Transf (AST/SGOT) 27 U/L Alanine Aminotransferase (ALT/SGPT) 23 U/L Alkaline Phosphatase 71 U/L Total Protein 5.7 g/dL Albumin 2.0 g/dL Globulin 3.7 Albumin/Globulin Ratio 0.540 Blood Gas Sample Site RT RADIAL ARTERY RR Blood Gas pH 7.405 7.398 Blood Gas PCO2 35.2 mmHg 36.1 mmHg Blood Gas PO2 53.5 mmHg 52.5 mmHg Blood Gas HCO3 21.6 mmol/L 21.8 mmol/L Blood Gas Base Excess -2.5 mmol/L -2.5 mmol/L Abdi Test POSITIVE POSITIVE Arterial Blood Oxygen Saturation 87.9 % 86.0 % Deoxyhemoglobin 12.1 % 13.9 % Carboxyhemoglobin 0 % 0.6 % Methemoglobin 0.1 % 0.3 % Total Hemoglobin 14.0 % 13.9 % Total Oxygen Concentration 17.3 % 16.6 % Blood Gas Temperature 37 37 Oxygen Delivery Method (LAB) NON-REBREATHER MASK NON-REBREATHER MASK FiO2 100 % 100 % Total Carbon Dioxide 22.6 mmol/L 22.9 mmol/L Bedside Glucose 133 Test 09/11/20 11:42 09/11/20 16:15 09/11/20 20:50 09/12/20 04:11 Bedside Glucose 185 175 201 White Blood Count 16.3 10^3/uL Red Blood Count 4.45 10^6/uL Hemoglobin 13.2 g/dL Hematocrit 37.1 % Mean Corpuscular Volume 83.4 fL Mean Corpuscular Hemoglobin 29.7 pg Mean Corpuscular Hemoglobin Concent 35.6 g/dL Red Cell Distribution Width 12.3 % Platelet Count 316 10^3/uL Mean Platelet Volume 9.2 fL Neutrophils (%) (Auto) 89.5 % Lymphocytes (%) (Auto) 3.9 % Monocytes (%) (Auto) 5.0 % Neutrophils # (Auto) 14.6 10^3/uL Lymphocytes # (Auto) 0.64 10^3/uL1 Monocytes # (Auto) 0.8 10^3/uL Absolute Immature Granulocyte (auto 0.24 10^3 u/L Absolute Eosinophils (auto) 0.0 10^3/uL Immature Granulocytes % 1.50 % Eosinophils % 0.0 % Basophils % 0.1 % Basophils # 0.0 10^3/uL Sodium Level 139 mmol/L Potassium Level 4.1 mmol/L Chloride Level 105.0 mmol/L Carbon Dioxide Level 26.4 mmol/L Anion Gap 11.7 Blood Urea Nitrogen 24 mg/dL Creatinine 0.82 mg/dL Estimated GFR () 114.5 Est GFR (CKD-EPI)(Non-Afr [place]ien) 94.6 BUN/Creatinine Ratio 29.0 Glucose Level 144 mg/dL Calcium Level 8.3 mg/dL Total Bilirubin 0.6 mg/dL Aspartate Amino Transf (AST/SGOT) 24 U/L Alanine Aminotransferase (ALT/SGPT) 19 U/L Alkaline Phosphatase 69 U/L Total Protein 5.6 g/dL Albumin 2.0 g/dL Globulin 3.6 Albumin/Globulin Ratio 0.555 Test 09/12/20 05:21 09/12/20 07:14 09/12/20 11:45 09/12/20 15:44 Bedside Glucose 132 173 262 Blood Gas Sample Site RR Blood Gas pH 7.429 Blood Gas PCO2 33.6 mmHg Blood Gas PO2 47.2 mmHg Blood Gas HCO3 21.8 mmol/L Blood Gas Base Excess -1.7 mmol/L Abdi Test POSITIVE Arterial Blood Oxygen Saturation 82.7 % Deoxyhemoglobin 17.1 % Carboxyhemoglobin 0.9 % Methemoglobin 0.3 % Total Hemoglobin 15.0 % Total Oxygen Concentration 17.2 % Blood Gas Temperature 37 Oxygen Delivery Method (LAB) NON-REBREATHER MASK FiO2 100 % Total Carbon Dioxide 22.8 mmol/L Test 09/12/20 21:13 09/13/20 04:13 09/13/20 07:45 09/13/20 12:57 Bedside Glucose 202 195 White Blood Count 13.7 10^3/uL Red Blood Count 4.63 10^6/uL Hemoglobin 13.4 g/dL Hematocrit 38.7 % Mean Corpuscular Volume 83.6 fL Mean Corpuscular Hemoglobin 28.9 pg Mean Corpuscular Hemoglobin Concent 34.6 g/dL Red Cell Distribution Width 12.4 % Platelet Count 132 10^3/uL Mean Platelet Volume 10.4 fL Neutrophils (%) (Auto) 89.9 % Lymphocytes (%) (Auto) 4.0 % Monocytes (%) (Auto) 4.7 % Neutrophils # (Auto) 12.3 10^3/uL Lymphocytes # (Auto) 0.55 10^3/uL1 Monocytes # (Auto) 0.6 10^3/uL Absolute Immature Granulocyte (auto 0.18 10^3 u/L Absolute Eosinophils (auto) 0.0 10^3/uL Immature Granulocytes % 1.30 % Eosinophils % 0.0 % Basophils % 0.1 % Basophils # 0.0 10^3/uL D-Dimer 6.10 mg/L Sodium Level 134 mmol/L Potassium Level 3.9 mmol/L Chloride Level 101.0 mmol/L Carbon Dioxide Level 24.6 mmol/L Anion Gap 12.3 Blood Urea Nitrogen 21 mg/dL Creatinine 0.83 mg/dL Estimated GFR () 112.9 Est GFR (CKD-EPI)(Non-Afr [place]ien) 93.3 BUN/Creatinine Ratio 25.0 Glucose Level 163 mg/dL Calcium Level 8.1 mg/dL Total Bilirubin 0.6 mg/dL Aspartate Amino Transf (AST/SGOT) 25 U/L Alanine Aminotransferase (ALT/SGPT) 18 U/L Alkaline Phosphatase 65 U/L Ammonia 32 umol/L Pro-B-Type Natriuretic Peptide 1380 pg/mL Total Protein 5.6 g/dL Albumin 1.9 g/dL Globulin 3.7 Albumin/Globulin Ratio 0.513 Blood Gas Sample Site RR Blood Gas pH 7.410 Blood Gas PCO2 47.1 mmHg Blood Gas PO2 55.4 mmHg Blood Gas HCO3 25.9 mmol/L Blood Gas Base Excess 1.1 mmol/L Abdi Test POSITIVE Arterial Blood Oxygen Saturation 87.4 % Deoxyhemoglobin 12.5 % Carboxyhemoglobin 0.8 % Methemoglobin 0.2 % Total Hemoglobin 13.9 % Total Oxygen Concentration 16.9 % Oxygen Delivery Method (LAB) BIPAP Blood Gas Vent Mode AVAPS Blood Gas Vent Rate 14 FiO2 100 % Blood Gas Tidal Volume 400 ML Blood Gas PEEP 8 CMH2O Total Carbon Dioxide 27.2 mmol/L Test 09/13/20 13:06 09/13/20 14:10 09/13/20 16:18 09/13/20 17:19 Blood Gas Sample Site RR Blood Gas pH 7.388 Blood Gas PCO2 52.0 mmHg Blood Gas PO2 52.0 mmHg Blood Gas HCO3 22.7 mmol/L Blood Gas Base Excess -1.9 mmol/L Abdi Test POSITIVE Arterial Blood Oxygen Saturation 83.6 % Carboxyhemoglobin 0 % Methemoglobin 0.2 % Total Hemoglobin 14.7 % Blood Gas Temperature 37 Oxygen Delivery Method (LAB) VENT Blood Gas Vent Mode ACVC Blood Gas Vent Rate 25 FiO2 100 % Blood Gas Tidal Volume 400 ML Blood Gas PEEP 6 CMH2O Total Carbon Dioxide 23.9 mmol/L Urine Collection Type UNKNOWN Urine Color YELLOW Urine Appearance CLEAR Urine Bilirubin NEGATIVE MG/DL Urine Ketones NEGATIVE Urine Specific [place] 1.010 Urine pH 6.5 Urine Protein NEGATIVE Urine Urobilinogen NORMAL Urine Nitrate NEGATIVE Urine Leukocyte Esterase NEGATIVE Urine Blood NEGATIVE Urine Glucose 100 Procalcitonin 0.26 ng/mL Bedside Glucose 243 Test 09/13/20 23:38 09/14/20 03:53 09/14/20 05:21 09/14/20 08:30 Bedside Glucose 137 184 White Blood Count 15.2 10^3/uL Red Blood Count 4.89 10^6/uL Hemoglobin 14.3 g/dL Hematocrit 41.5 % Mean Corpuscular Volume 84.9 fL Mean Corpuscular Hemoglobin 29.2 pg Mean Corpuscular Hemoglobin Concent 34.5 g/dL Red Cell Distribution Width 12.9 % Platelet Count 260 10^3/uL Mean Platelet Volume 10.3 fL Neutrophils (%) (Auto) 92.6 % Lymphocytes (%) (Auto) 3.0 % Monocytes (%) (Auto) 2.5 % Neutrophils # (Auto) 14.1 10^3/uL Lymphocytes # (Auto) 0.45 10^3/uL1 Monocytes # (Auto) 0.4 10^3/uL Absolute Immature Granulocyte (auto 0.27 10^3 u/L Absolute Eosinophils (auto) 0.0 10^3/uL Immature Granulocytes % 1.80 % Eosinophils % 0.0 % Basophils % 0.1 % Basophils # 0.0 10^3/uL Sodium Level 141 mmol/L Potassium Level 4.6 mmol/L Chloride Level 105.0 mmol/L Carbon Dioxide Level 24.2 mmol/L Anion Gap 16.4 Blood Urea Nitrogen 34 mg/dL Creatinine 1.14 mg/dL Estimated GFR () 78.3 Est GFR (CKD-EPI)(Non-Afr [place]ien) 64.7 BUN/Creatinine Ratio 29.0 Glucose Level 179 mg/dL Calcium Level 8.2 mg/dL Total Bilirubin 0.6 mg/dL Aspartate Amino Transf (AST/SGOT) 19 U/L Alanine Aminotransferase (ALT/SGPT) 16 U/L Alkaline Phosphatase 61 U/L Total Protein 5.8 g/dL Albumin 2.0 g/dL Globulin 3.8 Albumin/Globulin Ratio 0.526 Blood Gas Sample Site RT RADIAL ARTERY Blood Gas pH 7.377 Blood Gas PCO2 39.9 mmHg Blood Gas PO2 55.2 mmHg Blood Gas HCO3 22.9 mmol/L Blood Gas Base Excess -2.0 mmol/L Abdi Test POSITIVE Arterial Blood Oxygen Saturation 85.5 % Deoxyhemoglobin 14.4 % Carboxyhemoglobin 0.7 % Methemoglobin 0.2 % Total Hemoglobin 15.1 % Total Oxygen Concentration 18.0 % Blood Gas Temperature 37 Oxygen Delivery Method (LAB) VENT Blood Gas Vent Mode ACVC Blood Gas Vent Rate 25 FiO2 100 % Blood Gas Tidal Volume 400 ML Blood Gas PEEP 10 CMH2O Total Carbon Dioxide 24.1 mmol/L Test 09/14/20 12:01 09/14/20 15:20 09/14/20 17:42 09/15/20 00:20 Bedside Glucose 201 232 283 Lactic Acid Level 1.3 mmol/L Test 09/15/20 04:09 09/15/20 05:49 09/15/20 05:50 09/15/20 08:02 White Blood Count 16.8 10^3/uL Red Blood Count 4.60 10^6/uL Hemoglobin 13.4 g/dL Hematocrit 39.6 % Mean Corpuscular Volume 86.1 fL Mean Corpuscular Hemoglobin 29.1 pg Mean Corpuscular Hemoglobin Concent 33.8 g/dL Red Cell Distribution Width 13.1 % Platelet Count 355 10^3/uL Mean Platelet Volume 9.9 fL Neutrophils (%) (Auto) 92.1 % Lymphocytes (%) (Auto) 2.5 % Monocytes (%) (Auto) 3.7 % Neutrophils # (Auto) 15.5 10^3/uL Lymphocytes # (Auto) 0.42 10^3/uL1 Monocytes # (Auto) 0.6 10^3/uL Absolute Immature Granulocyte (auto 0.28 10^3 u/L Absolute Eosinophils (auto) 0.0 10^3/uL Immature Granulocytes % 1.70 % Eosinophils % 0.0 % Basophils % 0.0 % Basophils # 0.0 10^3/uL Sodium Level 139 mmol/L Potassium Level 4.1 mmol/L Chloride Level 105.0 mmol/L Carbon Dioxide Level 23.9 mmol/L Anion Gap 14.2 Blood Urea Nitrogen 52 mg/dL Creatinine 1.34 mg/dL Estimated GFR () 64.9 Est GFR (CKD-EPI)(Non-Afr [place]ien) 53.7 BUN/Creatinine Ratio 38.0 Glucose Level 305 mg/dL Calcium Level 7.1 mg/dL Total Bilirubin 0.4 mg/dL Aspartate Amino Transf (AST/SGOT) 17 U/L Alanine Aminotransferase (ALT/SGPT) 17 U/L Alkaline Phosphatase 65 U/L C-Reactive Protein 3.29 mg/dL Total Protein 5.6 g/dL Albumin 2.0 g/dL Globulin 3.6 Albumin/Globulin Ratio 0.555 Bedside Glucose 276 Segmented Neutrophils 98 % Lymphocytes 1 % Monocytes 1 % Platelet Estimate ADEQUATE Platelet Morphology NORMAL Blood Gas Sample Site ART LINE Blood Gas pH 7.335 Blood Gas PCO2 42.5 mmHg Blood Gas PO2 72.2 mmHg Blood Gas HCO3 22.2 mmol/L Blood Gas Base Excess -3.6 mmol/L Abdi Test POSITIVE Arterial Blood Oxygen Saturation 93.1 % Deoxyhemoglobin 6.8 % Carboxyhemoglobin 0.6 % Methemoglobin 0.3 % Total Hemoglobin 13.6 % Total Oxygen Concentration 17.7 % Blood Gas Temperature 37 Oxygen Delivery Method (LAB) VENT Blood Gas Vent Mode ACVC Blood Gas Vent Rate 25 FiO2 100 % Blood Gas Tidal Volume 400 ML Blood Gas PEEP 12 CMH2O Total Carbon Dioxide 23.5 mmol/L Test 09/15/20 11:39 09/15/20 15:05 09/15/20 17:08 09/15/20 20:08 Bedside Glucose 294 288 260 Procalcitonin 0.15 ng/mL Test 09/15/20 23:59 09/16/20 04:23 09/16/20 05:22 09/16/20 05:42 Bedside Glucose 284 278 White Blood Count 15.2 10^3/uL Red Blood Count 4.03 10^6/uL Hemoglobin 11.7 g/dL Hematocrit 35.3 % Mean Corpuscular Volume 87.6 fL Mean Corpuscular Hemoglobin 29.0 pg Mean Corpuscular Hemoglobin Concent 33.1 g/dL Red Cell Distribution Width 13.1 % Platelet Count 234 10^3/uL Mean Platelet Volume 10.2 fL Neutrophils (%) (Auto) 94.0 % Lymphocytes (%) (Auto) 1.8 % Monocytes (%) (Auto) 3.0 % Neutrophils # (Auto) 14.3 10^3/uL Lymphocytes # (Auto) 0.28 10^3/uL1 Monocytes # (Auto) 0.5 10^3/uL Absolute Immature Granulocyte (auto 0.16 10^3 u/L Absolute Eosinophils (auto) 0.0 10^3/uL Immature Granulocytes % 1.10 % Eosinophils % 0.0 % Basophils % 0.1 % Basophils # 0.0 10^3/uL D-Dimer 1.67 mg/L Sodium Level 140 mmol/L Potassium Level 4.9 mmol/L Chloride Level 107.0 mmol/L Carbon Dioxide Level 24.8 mmol/L Anion Gap 13.1 Blood Urea Nitrogen 50 mg/dL Creatinine 1.14 mg/dL Estimated GFR () 78.3 Est GFR (CKD-EPI)(Non-Afr [place]ien) 64.7 BUN/Creatinine Ratio 43.0 Glucose Level 313 mg/dL Calcium Level 7.0 mg/dL Total Bilirubin 0.3 mg/dL Aspartate Amino Transf (AST/SGOT) 16 U/L Alanine Aminotransferase (ALT/SGPT) 16 U/L Alkaline Phosphatase 68 U/L Total Protein 4.9 g/dL Albumin 1.8 g/dL Globulin 3.1 Albumin/Globulin Ratio 0.580 Blood Gas Sample Site ART LINE Blood Gas pH 7.310 Blood Gas PCO2 46.1 mmHg Blood Gas PO2 61.6 mmHg Blood Gas HCO3 22.7 mmol/L Blood Gas Base Excess -3.7 mmol/L Abdi Test N/A Arterial Blood Oxygen Saturation 89.2 % Deoxyhemoglobin 10.7 % Carboxyhemoglobin 0.3 % Methemoglobin 0.3 % Total Hemoglobin 13.4 % Total Oxygen Concentration 16.7 % Blood Gas Temperature 37 Oxygen Delivery Method (LAB) VENT Blood Gas Vent Mode ACVC Blood Gas Vent Rate 25 FiO2 75 % Blood Gas Tidal Volume 400 ML Blood Gas PEEP 10 CMH2O Total Carbon Dioxide 24.1 mmol/L Test 09/16/20 06:16 09/16/20 12:17 09/16/20 13:15 09/16/20 17:13 Segmented Neutrophils 97 % Lymphocytes 1 % Monocytes 2 % Platelet Estimate ADEQUATE Platelet Morphology NORMAL Bedside Glucose 222 170 Procalcitonin 0.05 ng/mL Test 09/16/20 21:21 09/17/20 00:03 09/17/20 03:50 09/17/20 04:10 Bedside Glucose 186 221 235 White Blood Count 17.5 10^3/uL Red Blood Count 4.13 10^6/uL Hemoglobin 11.8 g/dL Hematocrit 36.6 % Mean Corpuscular Volume 88.6 fL Mean Corpuscular Hemoglobin 28.6 pg Mean Corpuscular Hemoglobin Concent 32.2 g/dL Red Cell Distribution Width 13.0 % Platelet Count 217 10^3/uL Mean Platelet Volume 9.7 fL Neutrophils (%) (Auto) 93.7 % Lymphocytes (%) (Auto) 1.3 % Monocytes (%) (Auto) 4.1 % Neutrophils # (Auto) 16.4 10^3/uL Lymphocytes # (Auto) 0.22 10^3/uL1 Monocytes # (Auto) 0.7 10^3/uL Absolute Immature Granulocyte (auto 0.16 10^3 u/L Absolute Eosinophils (auto) 0.0 10^3/uL Immature Granulocytes % 0.90 % Eosinophils % 0.0 % Basophils % 0.0 % Basophils # 0.0 10^3/uL Sodium Level 141 mmol/L Potassium Level 5.2 mmol/L Chloride Level 109.0 mmol/L Carbon Dioxide Level 26.2 mmol/L Anion Gap 11.0 Blood Urea Nitrogen 56 mg/dL Creatinine 1.02 mg/dL Estimated GFR () 89.0 Est GFR (CKD-EPI)(Non-Afr [place]ien) 73.5 BUN/Creatinine Ratio 54.0 Glucose Level 242 mg/dL Calcium Level 7.4 mg/dL Total Bilirubin 0.3 mg/dL Aspartate Amino Transf (AST/SGOT) 19 U/L Alanine Aminotransferase (ALT/SGPT) 20 U/L Alkaline Phosphatase 68 U/L Total Protein 4.6 g/dL Albumin 1.9 g/dL Globulin 2.7 Albumin/Globulin Ratio 0.703 Test 09/17/20 04:22 09/17/20 05:51 09/17/20 06:25 09/17/20 09:10 Segmented Neutrophils 96 % Lymphocytes 1 % Monocytes 3 % Platelet Estimate ADEQUATE Platelet Morphology NORMAL Bedside Glucose 244 Blood Gas Sample Site ARTERIAL LINE Blood Gas pH 7.303 Blood Gas PCO2 45.2 mmHg Blood Gas PO2 61.0 mmHg Blood Gas HCO3 21.9 mmol/L Blood Gas Base Excess -4.4 mmol/L Abdi Test N/A Arterial Blood Oxygen Saturation 89.1 % Deoxyhemoglobin 10.8 % Carboxyhemoglobin 0.3 % Methemoglobin 0.3 % Total Hemoglobin 12.6 % Total Oxygen Concentration 15.7 % Blood Gas Temperature 37 Oxygen Delivery Method (LAB) VENT Blood Gas Vent Mode AC Blood Gas Vent Rate 25 FiO2 90 % Blood Gas Tidal Volume 400 ML Blood Gas PEEP 10 CMH2O Total Carbon Dioxide 23.3 mmol/L Ammonia 36 umol/L Test 09/17/20 10:45 09/17/20 16:08 09/17/20 16:41 09/17/20 20:00 Bedside Glucose 218 186 175 Sodium Level 138 mmol/L Potassium Level 5.0 mmol/L Chloride Level 106.0 mmol/L Carbon Dioxide Level 24.6 mmol/L Glucose Level 209 mg/dL Blood Urea Nitrogen 62 mg/dL Creatinine 1.29 mg/dL Calcium Level 7.1 mg/dL Anion Gap 12.4 Estimated GFR () 67.8 Est GFR (CKD-EPI)(Non-Afr [place]ien) 56.1 BUN/Creatinine Ratio 48.0 Test 09/17/20 23:51 09/18/20 04:14 09/18/20 05:38 09/18/20 07:47 Bedside Glucose 135 173 White Blood Count 20.4 10^3/uL Red Blood Count 4.32 10^6/uL Hemoglobin 12.5 g/dL Hematocrit 38.3 % Mean Corpuscular Volume 88.7 fL Mean Corpuscular Hemoglobin 28.9 pg Mean Corpuscular Hemoglobin Concent 32.6 g/dL Red Cell Distribution Width 13.2 % Platelet Count 202 10^3/uL Mean Platelet Volume 10.0 fL Neutrophils (%) (Auto) 86.3 % Lymphocytes (%) (Auto) 4.3 % Monocytes (%) (Auto) 5.5 % Neutrophils # (Auto) 17.6 10^3/uL Lymphocytes # (Auto) 0.87 10^3/uL1 Monocytes # (Auto) 1.1 10^3/uL Absolute Immature Granulocyte (auto 0.74 10^3 u/L Absolute Eosinophils (auto) 0.1 10^3/uL Immature Granulocytes % 3.60 % Eosinophils % 0.3 % Basophils % 0.0 % Basophils # 0.0 10^3/uL Sodium Level 141 mmol/L Potassium Level 4.4 mmol/L Chloride Level 107.0 mmol/L Carbon Dioxide Level 25.2 mmol/L Anion Gap 13.2 Blood Urea Nitrogen 62 mg/dL Creatinine 1.21 mg/dL Estimated GFR () 73.1 Est GFR (CKD-EPI)(Non-Afr [place]ien) 60.4 BUN/Creatinine Ratio 51.0 Glucose Level 129 mg/dL Calcium Level 7.0 mg/dL Total Bilirubin 0.3 mg/dL Aspartate Amino Transf (AST/SGOT) 20 U/L Alanine Aminotransferase (ALT/SGPT) 24 U/L Alkaline Phosphatase 72 U/L Total Protein 4.9 g/dL Albumin 1.8 g/dL Globulin 3.1 Albumin/Globulin Ratio 0.580 Blood Gas Sample Site GILMAN Blood Gas pH 7.340 Blood Gas PCO2 47.4 mmHg Blood Gas PO2 76.1 mmHg Blood Gas HCO3 25.0 mmol/L Blood Gas Base Excess -1.1 mmol/L Abdi Test N/A Arterial Blood Oxygen Saturation 94.9 % Deoxyhemoglobin 5.1 % Carboxyhemoglobin 0.5 % Methemoglobin 0.4 % Total Hemoglobin 12.9 % Total Oxygen Concentration 17.1 % Blood Gas Temperature 37 Oxygen Delivery Method (LAB) VENT Blood Gas Vent Mode ACVC Blood Gas Vent Rate 25 FiO2 80 % Blood Gas Tidal Volume 400 ML Blood Gas PEEP 12 CMH2O Total Carbon Dioxide 26.5 mmol/L Test 09/18/20 11:26 09/18/20 18:01 09/18/20 20:17 09/18/20 23:51 Bedside Glucose 158 110 76 71 Test 09/19/20 04:30 09/19/20 05:19 09/19/20 05:21 09/19/20 05:25 White Blood Count 18.2 10^3/uL Red Blood Count 4.22 10^6/uL Hemoglobin 12.5 g/dL Hematocrit 36.8 % Mean Corpuscular Volume 87.2 fL Mean Corpuscular Hemoglobin 29.6 pg Mean Corpuscular Hemoglobin Concent 34.0 g/dL Red Cell Distribution Width 13.2 % Platelet Count 137 10^3/uL Mean Platelet Volume 10.4 fL Neutrophils (%) (Auto) 88.7 % Lymphocytes (%) (Auto) 4.6 % Monocytes (%) (Auto) 2.9 % Neutrophils # (Auto) 16.1 10^3/uL Lymphocytes # (Auto) 0.83 10^3/uL1 Monocytes # (Auto) 0.5 10^3/uL Absolute Immature Granulocyte (auto 0.38 10^3 u/L Absolute Eosinophils (auto) 0.3 10^3/uL Immature Granulocytes % 2.10 % Eosinophils % 1.7 % Basophils % 0.0 % Basophils # 0.0 10^3/uL D-Dimer 1.97 mg/L Sodium Level 140 mmol/L Potassium Level 4.1 mmol/L Chloride Level 106.0 mmol/L Carbon Dioxide Level 30.9 mmol/L Anion Gap 7.2 Blood Urea Nitrogen 40 mg/dL Creatinine 0.64 mg/dL Estimated GFR () 152.3 Est GFR (CKD-EPI)(Non-Afr [place]ien) 125.9 BUN/Creatinine Ratio 62.0 Glucose Level 121 mg/dL Calcium Level 7.4 mg/dL Phosphorus Level 3.0 mg/dL Magnesium Level 2.5 mg/dL Ferritin 1809 ng/mL Total Bilirubin 0.5 mg/dL Aspartate Amino Transf (AST/SGOT) 28 U/L Alanine Aminotransferase (ALT/SGPT) 32 U/L Alkaline Phosphatase 67 U/L Lactate Dehydrogenase 213 U/L Total Creatine Kinase 20 U/L C-Reactive Protein 18.69 mg/dL Total Protein 5.0 g/dL Albumin 1.5 g/dL Globulin 3.5 Albumin/Globulin Ratio 0.428 Triglycerides Level 91 mg/dL Procalcitonin 1.44 ng/mL Bedside Glucose 201 68 63 Test 09/19/20 07:31 09/19/20 11:30 09/19/20 16:33 09/20/20 00:03 Blood Gas Sample Site GILMAN Blood Gas pH 7.440 Blood Gas PCO2 39.8 mmHg Blood Gas PO2 65.1 mmHg Blood Gas HCO3 26.4 mmol/L Blood Gas Base Excess 2.2 mmol/L Abdi Test N/A Arterial Blood Oxygen Saturation 93.0 % Deoxyhemoglobin 6.9 % Carboxyhemoglobin 0.9 % Methemoglobin 0.4 % Total Hemoglobin 13.1 % Total Oxygen Concentration 16.9 % Blood Gas Temperature 37 Oxygen Delivery Method (LAB) VENT Blood Gas Vent Mode ACVC Blood Gas Vent Rate 30 FiO2 70 % Blood Gas Tidal Volume 400 ML Blood Gas PEEP 10 CMH2O Total Carbon Dioxide 27.6 mmol/L Bedside Glucose 162 165 266 Test 09/20/20 04:13 09/20/20 05:58 09/20/20 07:30 09/20/20 11:38 White Blood Count 16.6 10^3/uL Red Blood Count 4.21 10^6/uL Hemoglobin 12.0 g/dL Hematocrit 37.1 % Mean Corpuscular Volume 88.1 fL Mean Corpuscular Hemoglobin 28.5 pg Mean Corpuscular Hemoglobin Concent 32.3 g/dL Red Cell Distribution Width 13.3 % Platelet Count 127 10^3/uL Mean Platelet Volume 11.0 fL Neutrophils (%) (Auto) 90.4 % Lymphocytes (%) (Auto) 2.8 % Monocytes (%) (Auto) 3.1 % Neutrophils # (Auto) 15.0 10^3/uL Lymphocytes # (Auto) 0.47 10^3/uL1 Monocytes # (Auto) 0.5 10^3/uL Absolute Immature Granulocyte (auto 0.28 10^3 u/L Absolute Eosinophils (auto) 0.3 10^3/uL Immature Granulocytes % 1.70 % Eosinophils % 1.9 % Basophils % 0.1 % Basophils # 0.0 10^3/uL Sodium Level 140 mmol/L Potassium Level 4.1 mmol/L Chloride Level 106.0 mmol/L Carbon Dioxide Level 29.6 mmol/L Anion Gap 8.5 Blood Urea Nitrogen 24 mg/dL Creatinine 0.58 mg/dL Estimated GFR () 170.7 Est GFR (CKD-EPI)(Non-Afr [place]ien) 141.1 BUN/Creatinine Ratio 41.0 Glucose Level 110 mg/dL Calcium Level 7.3 mg/dL Total Bilirubin 0.7 mg/dL Aspartate Amino Transf (AST/SGOT) 27 U/L Alanine Aminotransferase (ALT/SGPT) 28 U/L Alkaline Phosphatase 70 U/L Total Protein 4.9 g/dL Albumin 1.4 g/dL Globulin 3.5 Albumin/Globulin Ratio 0.400 Bedside Glucose 72 182 Blood Gas Sample Site ART LINE Blood Gas pH 7.380 Blood Gas PCO2 42.9 mmHg Blood Gas PO2 64.1 mmHg Blood Gas HCO3 24.8 mmol/L Blood Gas Base Excess -0.4 mmol/L Abdi Test N/A Arterial Blood Oxygen Saturation 92.2 % Deoxyhemoglobin 7.8 % Carboxyhemoglobin 0.1 % Methemoglobin 0.3 % Total Hemoglobin 12.5 % Total Oxygen Concentration 16.2 % Blood Gas Temperature 37.0 Oxygen Delivery Method (LAB) VENT Blood Gas Vent Mode ACVC Blood Gas Vent Rate 28 FiO2 70 % Blood Gas Tidal Volume 400 ML Blood Gas PEEP 10 CMH2O Total Carbon Dioxide 26.1 mmol/L Test 09/20/20 16:35 09/20/20 23:51 09/21/20 00:06 09/21/20 04:09 Bedside Glucose 142 349 121 White Blood Count 12.7 10^3/uL Red Blood Count 3.86 10^6/uL Hemoglobin 11.4 g/dL Hematocrit 34.2 % Mean Corpuscular Volume 88.6 fL Mean Corpuscular Hemoglobin 29.5 pg Mean Corpuscular Hemoglobin Concent 33.3 g/dL Red Cell Distribution Width 13.3 % Platelet Count 112 10^3/uL Mean Platelet Volume 10.7 fL Neutrophils (%) (Auto) 87.8 % Lymphocytes (%) (Auto) 3.2 % Monocytes (%) (Auto) 5.2 % Neutrophils # (Auto) 11.2 10^3/uL Lymphocytes # (Auto) 0.41 10^3/uL1 Monocytes # (Auto) 0.7 10^3/uL Absolute Immature Granulocyte (auto 0.17 10^3 u/L Absolute Eosinophils (auto) 0.3 10^3/uL Immature Granulocytes % 1.30 % Eosinophils % 2.4 % Basophils % 0.1 % Basophils # 0.0 10^3/uL Sodium Level 140 mmol/L Potassium Level 3.9 mmol/L Chloride Level 105.0 mmol/L Carbon Dioxide Level 33.2 mmol/L Anion Gap 5.7 Blood Urea Nitrogen 18 mg/dL Creatinine 0.75 mg/dL Estimated GFR () 126.9 Est GFR (CKD-EPI)(Non-Afr [place]ien) 104.8 BUN/Creatinine Ratio 24.0 Glucose Level 135 mg/dL Calcium Level 7.1 mg/dL Phosphorus Level 3.0 mg/dL Magnesium Level 2.4 mg/dL Total Bilirubin 0.8 mg/dL Aspartate Amino Transf (AST/SGOT) 41 U/L Alanine Aminotransferase (ALT/SGPT) 32 U/L Alkaline Phosphatase 83 U/L Total Protein 5.0 g/dL Albumin 1.2 g/dL Globulin 3.8 Albumin/Globulin Ratio 0.315 Test 09/21/20 06:03 09/21/20 07:28 09/21/20 11:20 09/21/20 17:17 Bedside Glucose 103 169 186 Blood Gas Sample Site GILMAN Blood Gas pH 7.407 Blood Gas PCO2 51.4 mmHg Blood Gas PO2 85.8 mmHg Blood Gas HCO3 31.6 mmol/L Blood Gas Base Excess 5.9 mmol/L Abdi Test N/A Arterial Blood Oxygen Saturation 96.1 % Deoxyhemoglobin 3.9 % Carboxyhemoglobin 1.1 % Methemoglobin 0.1 % Total Hemoglobin 11.7 % Total Oxygen Concentration 15.7 % Blood Gas Temperature 37 Oxygen Delivery Method (LAB) VENT Blood Gas Vent Mode ACVC+ Blood Gas Vent Rate 26 FiO2 70 % Blood Gas Tidal Volume 400 ML Blood Gas PEEP 10 CMH2O Total Carbon Dioxide 33.2 mmol/L Test 09/21/20 21:14 09/22/20 00:35 09/22/20 03:56 09/22/20 04:21 Bedside Glucose 137 149 White Blood Count 8.7 10^3/uL Red Blood Count 3.46 10^6/uL Hemoglobin 10.1 g/dL Hematocrit 31.0 % Mean Corpuscular Volume 89.6 fL Mean Corpuscular Hemoglobin 29.2 pg Mean Corpuscular Hemoglobin Concent 32.6 g/dL Red Cell Distribution Width 13.4 % Platelet Count 116 10^3/uL Mean Platelet Volume 10.7 fL Neutrophils (%) (Auto) 82.9 % Lymphocytes (%) (Auto) 6.6 % Monocytes (%) (Auto) 5.9 % Neutrophils # (Auto) 7.2 10^3/uL Lymphocytes # (Auto) 0.58 10^3/uL1 Monocytes # (Auto) 0.5 10^3/uL Absolute Immature Granulocyte (auto 0.13 10^3 u/L Absolute Eosinophils (auto) 0.3 10^3/uL Immature Granulocytes % 1.50 % Eosinophils % 3.0 % Basophils % 0.1 % Basophils # 0.0 10^3/uL Sodium Level 140 mmol/L Potassium Level 3.8 mmol/L Chloride Level 103.0 mmol/L Carbon Dioxide Level 34.8 mmol/L Anion Gap 6.0 Blood Urea Nitrogen 20 mg/dL Creatinine 0.72 mg/dL Estimated GFR () 133.0 Est GFR (CKD-EPI)(Non-Afr [place]ien) 109.9 BUN/Creatinine Ratio 27.0 Glucose Level 203 mg/dL Calcium Level 7.6 mg/dL Phosphorus Level 2.9 mg/dL Magnesium Level 2.1 mg/dL Total Bilirubin 0.9 mg/dL Aspartate Amino Transf (AST/SGOT) 30 U/L Alanine Aminotransferase (ALT/SGPT) 32 U/L Alkaline Phosphatase 125 U/L Total Protein 4.8 g/dL Albumin 1.4 g/dL Globulin 3.4 Albumin/Globulin Ratio 0.411 Segmented Neutrophils 82 % Lymphocytes 4 % Monocytes 10 % Absolute Eosinophils (Manual) 4 % Platelet Estimate SLIGHTLY DECREASED Platelet Morphology NORMAL Test 09/22/20 05:36 09/22/20 07:42 09/22/20 12:27 09/22/20 17:10 Bedside Glucose 157 140 200 Blood Gas Sample Site SALOM[facility]N Blood Gas pH 7.410 Blood Gas PCO2 48.0 mmHg Blood Gas PO2 66.2 mmHg Blood Gas HCO3 29.7 mmol/L Blood Gas Base Excess 4.3 mmol/L Abdi Test N/A Arterial Blood Oxygen Saturation 92.9 % Deoxyhemoglobin 7.1 % Carboxyhemoglobin 0.3 % Methemoglobin 0.3 % Total Hemoglobin 12.0 % Total Oxygen Concentration 15.6 % Blood Gas Temperature 37 Oxygen Delivery Method (LAB) VENT Blood Gas Vent Mode ACVC Blood Gas Vent Rate 26 FiO2 70 % Blood Gas Tidal Volume 400 ML Blood Gas PEEP 10 CMH2O Total Carbon Dioxide 31.2 mmol/L Test 09/22/20 20:34 09/23/20 00:00 09/23/20 04:30 09/23/20 04:40 Bedside Glucose 157 175 Urine Collection Type VOID Urine Color YELLOW Urine Appearance CLEAR Urine Bilirubin NEGATIVE MG/DL Urine Ketones NEGATIVE Urine Specific [place] 1.015 Urine pH 8.5 Urine Protein 30 mg/dL Urine Urobilinogen >=8.0 Urine Nitrate NEGATIVE Urine Leukocyte Esterase NEGATIVE Urine Blood TRACE Urine RBC 2-5 RBC/HPF Urine WBC 0-2 WBC/HPF Urine Bacteria RARE Urine Glucose NEGATIVE White Blood Count 10.6 10^3/uL Red Blood Count 3.49 10^6/uL Hemoglobin 10.1 g/dL Hematocrit 31.5 % Mean Corpuscular Volume 90.3 fL Mean Corpuscular Hemoglobin 28.9 pg Mean Corpuscular Hemoglobin Concent 32.1 g/dL Red Cell Distribution Width 13.3 % Platelet Count 132 10^3/uL Mean Platelet Volume 10.5 fL Neutrophils (%) (Auto) 81.1 % Lymphocytes (%) (Auto) 7.6 % Monocytes (%) (Auto) 5.9 % Neutrophils # (Auto) 8.6 10^3/uL Lymphocytes # (Auto) 0.80 10^3/uL1 Monocytes # (Auto) 0.6 10^3/uL Absolute Immature Granulocyte (auto 0.21 10^3 u/L Absolute Eosinophils (auto) 0.4 10^3/uL Immature Granulocytes % 2.00 % Eosinophils % 3.3 % Basophils % 0.1 % Basophils # 0.0 10^3/uL Sodium Level 141 mmol/L Potassium Level 3.9 mmol/L Chloride Level 100.0 mmol/L Carbon Dioxide Level 38.3 mmol/L Anion Gap 6.6 Blood Urea Nitrogen 18 mg/dL Creatinine 0.84 mg/dL Estimated GFR () 111.3 Est GFR (CKD-EPI)(Non-Afr [place]ien) 92.0 BUN/Creatinine Ratio 21.0 Glucose Level 130 mg/dL Calcium Level 8.2 mg/dL Phosphorus Level 2.8 mg/dL Magnesium Level 2.3 mg/dL Total Bilirubin 0.7 mg/dL Aspartate Amino Transf (AST/SGOT) 32 U/L Alanine Aminotransferase (ALT/SGPT) 33 U/L Alkaline Phosphatase 134 U/L Total Protein 5.8 g/dL Albumin 2.5 g/dL Globulin 3.3 Albumin/Globulin Ratio 0.757 Test 09/23/20 06:27 09/23/20 07:25 09/23/20 10:02 09/23/20 13:30 Bedside Glucose 154 88 166 Blood Gas Sample Site [facility] Blood Gas pH 7.421 Blood Gas PCO2 57.2 mmHg Blood Gas PO2 71.7 mmHg Blood Gas HCO3 36.4 mmol/L Blood Gas Base Excess 9.8 mmol/L Abdi Test N/A Arterial Blood Oxygen Saturation 93.6 % Deoxyhemoglobin 6.3 % Carboxyhemoglobin 0.9 % Methemoglobin 0.4 % Total Hemoglobin 13.8 % Total Oxygen Concentration 17.9 % Blood Gas Temperature 37 Oxygen Delivery Method (LAB) VENT Blood Gas Vent Mode ACVC+ Blood Gas Vent Rate 26 FiO2 70 % Blood Gas Tidal Volume 400 ML Blood Gas PEEP 10 CMH2O Total Carbon Dioxide 38.1 mmol/L Test 09/23/20 17:15 09/23/20 21:49 09/23/20 23:49 09/24/20 03:46 Bedside Glucose 86 181 153 White Blood Count 8.3 10^3/uL Red Blood Count 3.40 10^6/uL Hemoglobin 10.0 g/dL Hematocrit 30.6 % Mean Corpuscular Volume 90.0 fL Mean Corpuscular Hemoglobin 29.4 pg Mean Corpuscular Hemoglobin Concent 32.7 g/dL Red Cell Distribution Width 13.6 % Platelet Count 145 10^3/uL Mean Platelet Volume 10.9 fL Neutrophils (%) (Auto) 71.0 % Lymphocytes (%) (Auto) 14.0 % Monocytes (%) (Auto) 5.7 % Neutrophils # (Auto) 5.9 10^3/uL Lymphocytes # (Auto) 1.16 10^3/uL1 Monocytes # (Auto) 0.5 10^3/uL Absolute Immature Granulocyte (auto 0.31 10^3 u/L Absolute Eosinophils (auto) 0.4 10^3/uL Immature Granulocytes % 3.70 % Eosinophils % 5.2 % Basophils % 0.4 % Basophils # 0.0 10^3/uL D-Dimer 5.22 mg/L Sodium Level 142 mmol/L Potassium Level 3.6 mmol/L Chloride Level 102.0 mmol/L Carbon Dioxide Level 38.9 mmol/L Anion Gap 4.7 Blood Urea Nitrogen 16 mg/dL Creatinine 0.72 mg/dL Estimated GFR () 133.0 Est GFR (CKD-EPI)(Non-Afr [place]ien) 109.9 BUN/Creatinine Ratio 22.0 Glucose Level 93 mg/dL Calcium Level 8.2 mg/dL Phosphorus Level 3.7 mg/dL Magnesium Level 2.2 mg/dL Ferritin 644 ng/mL Total Bilirubin 0.5 mg/dL Aspartate Amino Transf (AST/SGOT) 28 U/L Alanine Aminotransferase (ALT/SGPT) 33 U/L Alkaline Phosphatase 128 U/L Lactate Dehydrogenase 195 U/L Total Creatine Kinase 49 U/L C-Reactive Protein 15.29 mg/dL Total Protein 5.6 g/dL Albumin 2.0 g/dL Globulin 3.6 Albumin/Globulin Ratio 0.555 Procalcitonin 0.83 ng/mL Test 09/24/20 06:26 09/24/20 09:19 09/24/20 10:11 09/24/20 13:57 Bedside Glucose 102 76 127 Blood Gas Sample Site ART LINE Blood Gas pH 7.432 Blood Gas PCO2 61.8 mmHg Blood Gas PO2 67.0 mmHg Blood Gas HCO3 40.3 mmol/L Blood Gas Base Excess 13.6 mmol/L Abdi Test N/A Arterial Blood Oxygen Saturation 92.6 % Deoxyhemoglobin 7.3 % Carboxyhemoglobin 0.4 % Methemoglobin 0.4 % Total Hemoglobin 11.9 % Total Oxygen Concentration 15.4 % Oxygen Delivery Method (LAB) MV Blood Gas Vent Mode ACVC+ Blood Gas Vent Rate 26 FiO2 70 % Blood Gas Tidal Volume 400 ML Blood Gas PEEP 10.0 CMH2O Total Carbon Dioxide 42.2 mmol/L Test 09/24/20 18:07 09/24/20 23:49 09/25/20 04:00 09/25/20 05:45 Bedside Glucose 157 127 160 White Blood Count 9.6 10^3/uL Red Blood Count 3.75 10^6/uL Hemoglobin 10.8 g/dL Hematocrit 34.1 % Mean Corpuscular Volume 90.9 fL Mean Corpuscular Hemoglobin 28.8 pg Mean Corpuscular Hemoglobin Concent 31.7 g/dL Red Cell Distribution Width 13.7 % Platelet Count 171 10^3/uL Mean Platelet Volume 11.2 fL Neutrophils (%) (Auto) 67.5 % Lymphocytes (%) (Auto) 15.1 % Monocytes (%) (Auto) 4.0 % Neutrophils # (Auto) 6.5 10^3/uL Lymphocytes # (Auto) 1.45 10^3/uL1 Monocytes # (Auto) 0.4 10^3/uL Absolute Immature Granulocyte (auto 0.58 10^3 u/L Absolute Eosinophils (auto) 0.7 10^3/uL Immature Granulocytes % 6.10 % Eosinophils % 7.0 % Basophils % 0.3 % Basophils # 0.0 10^3/uL Sodium Level 141 mmol/L Potassium Level 4.4 mmol/L Chloride Level 101.0 mmol/L Carbon Dioxide Level 37.2 mmol/L Anion Gap 7.2 Blood Urea Nitrogen 20 mg/dL Creatinine 0.90 mg/dL Estimated GFR () 102.8 Est GFR (CKD-EPI)(Non-Afr [place]ien) 85.0 BUN/Creatinine Ratio 22.0 Glucose Level 149 mg/dL Calcium Level 8.6 mg/dL Phosphorus Level 5.6 mg/dL Magnesium Level 2.4 mg/dL Total Bilirubin 0.4 mg/dL Aspartate Amino Transf (AST/SGOT) 28 U/L Alanine Aminotransferase (ALT/SGPT) 31 U/L Alkaline Phosphatase 135 U/L Total Protein 6.0 g/dL Albumin 2.0 g/dL Globulin 4.0 Albumin/Globulin Ratio 0.500 Test 09/25/20 07:42 09/25/20 11:30 09/25/20 17:53 09/26/20 00:57 Blood Gas Sample Site SALOMÓN Blood Gas pH 7.417 Blood Gas PCO2 52.9 mmHg Blood Gas PO2 77.6 mmHg Blood Gas HCO3 33.3 mmol/L Blood Gas Base Excess 7.3 mmol/L Abdi Test N/A Arterial Blood Oxygen Saturation 95.4 % Deoxyhemoglobin 4.6 % Carboxyhemoglobin 0.6 % Methemoglobin 0.3 % Total Hemoglobin 13.0 % Total Oxygen Concentration 17.3 % Blood Gas Temperature 37 Oxygen Delivery Method (LAB) VENT Blood Gas Vent Mode ACVC Blood Gas Vent Rate 26 FiO2 85 % Blood Gas Tidal Volume 400 ML Blood Gas PEEP 10 CMH2O Total Carbon Dioxide 34.9 mmol/L Bedside Glucose 171 99 201 Test 09/26/20 04:10 09/26/20 04:45 09/26/20 06:44 09/26/20 07:51 White Blood Count 9.2 10^3/uL Red Blood Count 3.64 10^6/uL Hemoglobin 10.6 g/dL Hematocrit 32.7 % Mean Corpuscular Volume 89.8 fL Mean Corpuscular Hemoglobin 29.1 pg Mean Corpuscular Hemoglobin Concent 32.4 g/dL Red Cell Distribution Width 13.6 % Platelet Count 192 10^3/uL Mean Platelet Volume 10.7 fL Sodium Level 139 mmol/L Potassium Level 4.5 mmol/L Chloride Level 101.0 mmol/L Carbon Dioxide Level 34.9 mmol/L Anion Gap 7.6 Blood Urea Nitrogen 18 mg/dL Creatinine 0.85 mg/dL Estimated GFR () 109.8 Est GFR (CKD-EPI)(Non-Afr Nigerien) 90.7 BUN/Creatinine Ratio 21.0 Glucose Level 152 mg/dL Calcium Level 9.0 mg/dL Phosphorus Level 4.4 mg/dL Total Bilirubin 0.3 mg/dL Aspartate Amino Transf (AST/SGOT) 31 U/L Alanine Aminotransferase (ALT/SGPT) 26 U/L Alkaline Phosphatase 139 U/L Total Protein 6.2 g/dL Albumin 2.0 g/dL Globulin 4.2 Albumin/Globulin Ratio 0.476 Magnesium Level 2.4 mg/dL Bedside Glucose 156 Blood Gas Sample Site ART LINE Blood Gas pH 7.424 Blood Gas PCO2 53.4 mmHg Blood Gas PO2 73.1 mmHg Blood Gas HCO3 34.2 mmol/L Blood Gas Base Excess 8.3 mmol/L Abdi Test N/A Arterial Blood Oxygen Saturation 93.9 % Deoxyhemoglobin 6.0 % Carboxyhemoglobin 0.8 % Methemoglobin 0.4 % Total Hemoglobin 12.3 % Total Oxygen Concentration 16.1 % Oxygen Delivery Method (LAB) MV Blood Gas Vent Mode ACVC+ Blood Gas Vent Rate 26 FiO2 70 % Blood Gas Tidal Volume 400 ML Blood Gas PEEP 10.0 CMH2O Total Carbon Dioxide 35.8 mmol/L Test 09/26/20 12:07 09/26/20 17:51 09/27/20 00:28 09/27/20 04:08 Bedside Glucose 155 144 219 White Blood Count 10.7 10^3/uL Red Blood Count 3.75 10^6/uL Hemoglobin 10.9 g/dL Hematocrit 33.5 % Mean Corpuscular Volume 89.3 fL Mean Corpuscular Hemoglobin 29.1 pg Mean Corpuscular Hemoglobin Concent 32.5 g/dL Red Cell Distribution Width 13.5 % Platelet Count 232 10^3/uL Mean Platelet Volume 10.5 fL Sodium Level 136 mmol/L Potassium Level 4.7 mmol/L Chloride Level 98.0 mmol/L Carbon Dioxide Level 34.8 mmol/L Anion Gap 7.9 Blood Urea Nitrogen 19 mg/dL Creatinine 0.78 mg/dL Estimated GFR () 121.3 Est GFR (CKD-EPI)(Non-Afr Nigerien) 100.2 BUN/Creatinine Ratio 24.0 Glucose Level 154 mg/dL Calcium Level 8.7 mg/dL Phosphorus Level 4.2 mg/dL Magnesium Level 2.3 mg/dL Total Bilirubin 0.3 mg/dL Aspartate Amino Transf (AST/SGOT) 30 U/L Alanine Aminotransferase (ALT/SGPT) 23 U/L Alkaline Phosphatase 143 U/L Total Protein 6.7 g/dL Albumin 2.1 g/dL Globulin 4.6 Albumin/Globulin Ratio 0.456 Test 09/27/20 05:52 09/27/20 06:30 09/27/20 07:24 09/27/20 11:55 Bedside Glucose 187 181 Urine Collection Type UNKNOWN Urine Color YELLOW Urine Appearance CLEAR Urine Bilirubin NEGATIVE MG/DL Urine Ketones NEGATIVE Urine Specific Dennison 1.010 Urine pH 6.5 Urine Protein TRACE Urine Urobilinogen 2.0 Urine Nitrate NEGATIVE Urine Leukocyte Esterase NEGATIVE Urine Blood NEGATIVE Urine RBC 5-10 RBC/HPF Urine WBC 5-10 WBC/HPF Urine Squamous Epithelial Cells RARE #/HPF Urine Bacteria FEW Urine Glucose NORMAL Blood Gas Sample Site SALOMÓN Blood Gas pH 7.396 Blood Gas PCO2 47.5 mmHg Blood Gas PO2 81.3 mmHg Blood Gas HCO3 28.5 mmol/L Blood Gas Base Excess 3.0 mmol/L Abdi Test N/A Arterial Blood Oxygen Saturation 95.2 % Deoxyhemoglobin 4.7 % Carboxyhemoglobin 0.8 % Methemoglobin 0.4 % Total Hemoglobin 11.9 % Total Oxygen Concentration 15.8 % Blood Gas Temperature 37 Oxygen Delivery Method (LAB) VENT Blood Gas Vent Mode ACVC Blood Gas Vent Rate 24 FiO2 70 % Blood Gas Tidal Volume 400 ML Blood Gas PEEP 10 CMH2O Total Carbon Dioxide 30.0 mmol/L Current Medications Medications (Trade) Dose Ordered Sig/Adrianna Route PRN Reason Start Time Stop Time Status Last Admin Dose Admin Acetaminophen (Tylenol) 325 mg Q4H PRN PO PAIN 1 - 3 09/03/20 19:00 09/05/20 19:26 DC Morphine Sulfate (Morphine Sulfate) 2 mg Q4H PRN IV PAIN 4 - 6 09/03/20 19:00 09/04/20 19:28 DC Insulin Human Lispro (Humalog) 0-140 0 Units 141-200... ACHS SQ 09/03/20 21:00 09/13/20 19:43 DC 09/13/20 17:28 Dextrose 1,000 ml @ 100 mls/hr Q10H PRN IV HYPOGLYCEMIA 09/03/20 19:00 09/22/20 10:02 DC Dextrose (Dextrose 50%-Water Syringe) 25 ml STAT PRN IV HYPOGLYCEMIA 09/03/20 19:00 10/03/20 18:59 Glucagon (Glucagen) 1 mg STAT STAT IV 09/03/20 18:44 09/03/20 18:56 DC Heparin Sodium (Porcine) (Heparin) 5,000 unit Q8HR SQ 09/03/20 22:00 09/04/20 20:10 DC 09/04/20 14:00 Lisinopril (Zestril) 20 mg BID PO 09/03/20 21:00 09/14/20 11:07 DC 09/12/20 21:00 Azithromycin 500 mg/Sodium Chloride 250 ml @ 175 mls/hr Q24HRS IV 09/03/20 20:30 09/04/20 08:15 DC 09/03/20 21:11 Ceftriaxone Sodium 1000 mg/ Sodium Chloride 100 ml @ 100 mls/hr Q24HRS IV 09/03/20 19:30 09/04/20 08:15 DC 09/03/20 19:39 Sodium Chloride 1,000 ml @ 75 mls/hr [id number] IV 09/03/20 20:00 09/11/20 10:16 DC 09/11/20 01:20 Ceftriaxone Sodium (Rocephin) 1,000 mg STK-MED ONCE .ROUTE 09/03/20 19:35 09/03/20 19:35 DC Sodium Chloride 100 ml @ ud STK-MED ONCE IV 09/03/20 19:35 09/03/20 19:36 DC Zinc Sulfate (Zinc Sulfate) 220 mg DAILY PO 09/04/20 09:00 09/05/20 00:13 DC 09/04/20 08:22 Ascorbic Acid (Vitamin C) 500 mg BID PO 09/04/20 09:00 09/05/20 00:13 DC 09/04/20 20:22 Morphine Sulfate (Morphine Sulfate) 2 mg Q4H PRN IV PAIN 4 - 6 09/04/20 19:28 09/17/20 11:06 DC Enoxaparin Sodium (Lovenox) 75 mg BID SQ 09/04/20 20:30 09/05/20 11:39 DC 09/05/20 08:20 Azithromycin (Zithromax) 500 mg OT ONCE PO 09/05/20 00:00 09/05/20 02:22 DC 09/05/20 00:27 Ceftriaxone Sodium 2000 mg/ Sodium Chloride 100 ml @ 100 mls/hr Q24HRS IV 09/05/20 00:00 09/09/20 18:46 DC 09/08/20 23:59 Azithromycin (Zithromax) 250 mg DAILY PO 09/05/20 19:00 09/09/20 18:59 DC 09/09/20 08:31 Ceftriaxone Sodium (Rocephin) 1,000 mg STK-MED ONCE .ROUTE 09/05/20 00:25 09/05/20 00:26 DC Sodium Chloride 100 ml @ ud STK-MED ONCE IV 09/05/20 00:26 09/05/20 00:26 DC Enoxaparin Sodium (Lovenox) 40 mg DAILY SQ 09/06/20 09:00 09/09/20 18:47 DC 09/09/20 08:31 Ascorbic Acid (Vitamin C) 1,000 mg BID PO 09/05/20 21:00 10/05/20 20:59 09/27/20 08:47 Zinc Sulfate (Zinc Sulfate) 220 mg BID PO 09/05/20 21:00 10/05/20 20:59 09/27/20 08:47 Albuterol Sulfate (Ventolin Hfa) 2 inh RTQ4 IH 09/05/20 13:00 09/20/20 10:05 DC 09/20/20 08:30 Acetaminophen (Tylenol) 1,000 mg Q6H PRN PO PAIN 1 - 3 09/05/20 12:00 10/05/20 11:59 09/27/20 03:58 Enoxaparin Sodium (Lovenox) 40 mg STK-MED ONCE SQ 09/06/20 07:12 09/06/20 07:12 DC Remdesivir 200 mg/ Sodium Chloride 140 ml @ 120.69 mls/ hr OT STAT IV 09/07/20 18:45 09/07/20 19:54 DC 09/07/20 19:10 Remdesivir 100 mg/ Sodium Chloride 120 ml @ 111.111 mls/hr Q24HRS IV 09/08/20 19:00 09/13/20 07:12 DC 09/12/20 19:00 Potassium Chloride (Klor-Con 10) 40 meq OT PO 09/08/20 13:00 09/11/20 15:50 DC 09/09/20 04:56 Metoprolol Tartrate (Lopresser) 10 mg STAT STAT IVP 09/09/20 11:00 09/09/20 11:04 DC 09/09/20 11:34 Metoprolol Tartrate (Lopresser) 25 mg BID PO 09/09/20 21:00 09/14/20 11:02 DC 09/12/20 21:00 Enoxaparin Sodium (Lovenox) 80 mg BID SQ 09/09/20 19:00 09/11/20 15:51 DC 09/11/20 09:00 Sodium Chloride 250 ml @ ud STK-MED ONCE IV 09/10/20 12:50 09/10/20 12:51 DC Enoxaparin Sodium (Lovenox) 80 mg STK-MED ONCE SQ 09/10/20 21:17 09/10/20 21:17 DC Lorazepam (Ativan) 1 mg Q4HR PRN IV ANXIETY 09/11/20 00:30 09/18/20 08:58 DC 09/13/20 04:00 Enoxaparin Sodium (Lovenox) 80 mg BID SQ 09/11/20 21:00 09/13/20 15:41 DC 09/12/20 21:00 Methylprednisolone Acetate (Depo-Medrol) 40 mg Q8HR IM 09/11/20 22:00 09/11/20 18:19 DC Quetiapine Fumarate (Seroquel) 25 mg BID PO 09/12/20 21:00 09/13/20 15:41 DC 09/12/20 21:00 Quetiapine Fumarate (Seroquel) 25 mg BID PO 09/13/20 03:00 09/13/20 04:46 DC Dexmedetomidine HCl 400 mcg/ Sodium Chloride 100 ml @ 0 mls/hr IV 09/13/20 05:00 10/13/20 04:59 09/14/20 09:26 Sodium Chloride 100 ml @ ud STK-MED ONCE IV 09/13/20 05:16 09/13/20 05:16 DC Hydralazine HCl (Apresoline) 5 mg STAT STAT IV 09/13/20 08:19 09/13/20 08:21 DC 09/13/20 08:30 Hydralazine HCl (Apresoline) 5 mg STAT STAT IV 09/13/20 09:43 09/13/20 10:03 DC 09/13/20 09:43 Sterile Water (Water) 1,000 ml STK-MED ONCE .ROUTE 09/13/20 11:31 09/13/20 11:31 DC Sodium Chloride 1,000 ml @ ud STK-MED ONCE .ROUTE 09/13/20 11:31 09/13/20 11:31 DC Propofol 100 ml @ ud STK-MED ONCE IV 09/13/20 11:46 09/13/20 11:47 DC Propofol (Diprivan) 1,000 mg STAT IV 09/13/20 13:00 10/13/20 12:59 09/27/20 12:08 Sodium Chloride 1,000 ml @ 0 mls/hr Q0M ONCE IV 09/13/20 11:45 09/13/20 13:21 DC 09/13/20 11:45 Fentanyl Citrate 2000 mcg/Sodium Chloride 200 ml @ 7.4 mls/hr IV 09/13/20 16:00 09/13/20 19:50 DC 09/13/20 16:17 Methylprednisolone Sodium Succinate (Solu-Medrol) 40 mg Q8HR IV 09/13/20 22:00 09/17/20 07:00 DC 09/17/20 06:00 Succinylcholine Chloride (Quelicin) 100 mg STK-MED ONCE IV 09/13/20 11:58 09/13/20 18:48 DC Propofol (Diprivan) 150 mg STK-MED ONCE IV 09/13/20 11:58 09/13/20 18:48 DC Furosemide (Lasix) 20 mg STAT STAT IV 09/13/20 19:07 09/13/20 19:47 DC 09/13/20 19:07 Enoxaparin Sodium (Lovenox) 70 mg BID SQ 09/13/20 21:00 10/13/20 20:59 09/27/20 08:47 Insulin Human Lispro (Humalog) 0-140 0 Units 141-200... Q6 SQ 09/14/20 00:00 10/16/22 20:59 09/27/20 11:57 Fentanyl Citrate 5000 mcg/Sodium Chloride 500 ml @ 11.4 mls/hr IV 09/13/20 20:00 10/13/20 19:59 09/26/20 22:46 Sodium Chloride 500 ml @ 500 mls/hr Q1H ONCE IV 09/13/20 21:00 09/13/20 21:59 DC 09/13/20 21:00 Sodium Chloride 500 ml @ ud STK-MED ONCE IV 09/13/20 20:34 09/13/20 20:34 DC Sodium Chloride 250 ml @ ud STK-MED ONCE IV 09/13/20 20:34 09/13/20 20:34 DC Norepinephrine Bitartrate (Levophed) 4 mg STK-MED ONCE .ROUTE 09/13/20 20:34 09/13/20 20:35 DC Norepinephrine Bitartrate 8 mg/ Sodium Chloride 250 ml @ 0 mls/hr PRN PRN IV HYPOTENSION 09/13/20 21:00 09/19/20 10:29 DC 09/18/20 13:20 Furosemide (Lasix) 40 mg STK-MED ONCE .ROUTE 09/13/20 21:19 09/13/20 21:19 DC Docusate Sodium (Colace) 100 mg BID PO 09/14/20 21:00 10/14/20 20:59 09/27/20 08:47 Ceftriaxone Sodium 1000 mg/ Sodium Chloride 100 ml @ 200 mls/hr Q24HRS IV 09/14/20 15:00 09/19/20 09:11 DC 09/18/20 15:09 Azithromycin 500 mg/Sodium Chloride 250 ml @ 175 mls/hr Q24HRS IV 09/14/20 16:00 09/17/20 15:59 DC 09/16/20 16:00 Sodium Chloride 1,000 ml @ 75 mls/hr [id number] IV 09/14/20 15:30 09/17/20 11:06 DC 09/16/20 17:28 Heparin Sodium/ Sodium Chloride 500 ml @ ud STK-MED ONCE IV 09/14/20 18:32 09/14/20 18:32 DC Vecuronium [place] (Norcuron) 10 mg STK-MED ONCE .ROUTE 09/14/20 18:40 09/14/20 18:40 DC Sterile Water (Water) 1,000 ml STK-MED ONCE .ROUTE 09/15/20 00:38 09/15/20 00:39 DC Insulin Glargine (Lantus) 10 unit BID SQ 09/15/20 14:30 09/16/20 12:30 DC 09/16/20 08:28 Sterile Water (Water) 1,000 ml STK-MED ONCE .ROUTE 09/15/20 20:12 09/15/20 20:13 DC Vecuronium [place] (Norcuron) 10 mg STAT ONCE IV 09/16/20 10:00 09/16/20 10:12 DC 09/16/20 11:00 Insulin Glargine (Lantus) 20 unit BID SQ 09/16/20 21:00 09/24/20 10:44 DC 09/23/20 21:45 Pantoprazole Sodium (Protonix Iv) 40 mg DAILY IV 09/17/20 09:00 10/17/20 08:59 09/27/20 08:46 Sterile Water (Water) 1,000 ml STK-MED ONCE .ROUTE 09/16/20 16:52 09/16/20 16:53 DC Furosemide (Lasix) 20 mg STAT ONCE IV 09/17/20 08:00 09/17/20 08:17 DC 09/17/20 08:00 Quetiapine Fumarate (Seroquel) 25 mg BID PO 09/17/20 09:30 10/17/20 09:29 09/27/20 08:47 Vecuronium [place] (Norcuron) 10 mg Q2 PRN IV AGITATION 09/17/20 11:30 09/18/20 08:53 DC 09/17/20 15:00 Furosemide (Lasix) 40 mg DAILY IV 09/17/20 11:30 09/24/20 10:44 DC 09/24/20 09:00 Lactulose (Cephulac) 20 gm DAILY NG 09/18/20 09:00 09/18/20 08:56 DC Norepinephrine Bitartrate (Levophed) 4 mg STK-MED ONCE .ROUTE 09/17/20 16:16 09/17/20 16:17 DC Sodium Chloride 250 ml @ ud STK-MED ONCE IV 09/17/20 16:16 09/17/20 16:17 DC Sterile Water (Water) 1,000 ml STK-MED ONCE .ROUTE 09/17/20 18:20 09/17/20 18:21 DC Sodium Chloride 100 ml @ ud STK-MED ONCE IV 09/17/20 22:27 09/17/20 22:28 DC Fentanyl Citrate (Sublimaze) 50 mcg STK-MED ONCE .ROUTE 09/17/20 22:28 09/17/20 22:29 DC Vecuronium [place] (Norcuron) 10 mg Q2 IV 09/18/20 09:00 09/20/20 10:04 DC 09/20/20 08:00 Lactulose (Cephulac) 20 gm DAILY NG 09/18/20 09:00 10/18/20 08:59 09/27/20 08:46 Vecuronium [place] (Norcuron) 5 mg Q1HR PRN IV Additional Paralysis 09/18/20 09:00 10/18/20 08:59 09/21/20 17:19 Sterile Water (Water) 1,000 ml STK-MED ONCE .ROUTE 09/18/20 09:55 09/18/20 09:55 DC Heparin Sodium/ Dextrose 500 ml @ ud STK-MED ONCE IV 09/18/20 13:59 09/18/20 13:59 DC Cefepime HCl 2 gm/ Sodium Chloride 100 ml @ 100 mls/hr Q8H IV 09/19/20 09:00 09/20/20 10:04 DC 09/20/20 09:00 Norepinephrine Bitartrate 8 mg/ Sodium Chloride 250 ml @ 0 mls/hr TITRATE ONCE IV 09/19/20 11:00 09/19/20 11:01 DC 09/19/20 10:30 Norepinephrine Bitartrate 8 mg/ Sodium Chloride 250 ml @ 0 mls/hr TITRATE IV 09/19/20 12:00 10/19/20 11:59 09/23/20 14:20 Sterile Water (Water) 1,000 ml STK-MED ONCE .ROUTE 09/20/20 08:08 09/20/20 08:09 DC Vecuronium [place] (Norcuron) 10 mg Q3H PRN IV vent/dsynchonry hypoxia 09/20/20 10:30 10/20/20 10:29 09/22/20 20:25 Midazolam HCl (Versed) 2 mg Q2H PRN IV SEDATION 09/20/20 10:30 10/20/20 10:29 UNV Albuterol Sulfate (Ventolin Hfa) 2 inh PRN PRN IH wheezing 09/20/20 10:30 10/20/20 10:29 09/22/20 08:30 Vasopressin 20 unit/Sodium Chloride 100 ml @ 0 mls/hr PRN ONCE IV 09/20/20 17:00 09/20/20 17:01 DC Furosemide (Lasix) 60 mg OT ONCE IV 09/21/20 15:00 09/21/20 15:13 DC Albumin Human (Buminate 25%) 100 ml OT ONCE IV 09/21/20 15:00 09/21/20 15:13 DC 09/21/20 15:00 Sterile Water (Water) 1,000 ml STK-MED ONCE .ROUTE 09/21/20 15:26 09/21/20 15:26 DC Albumin Human (Buminate 25%) 100 ml Q8H IV 09/22/20 10:00 09/23/20 09:59 DC 09/23/20 02:00 Sterile Water (Water) 1,000 ml STK-MED ONCE .ROUTE 09/22/20 17:13 09/22/20 17:14 DC Acetaminophen (Ofirmev) 1,000 mg Q8H PRN IV see dose instructions 09/23/20 04:30 10/23/20 04:29 09/27/20 10:17 Sodium Chloride 250 ml @ ud STK-MED ONCE IV 09/23/20 14:14 09/23/20 14:14 DC Norepinephrine Bitartrate (Levophed) 4 mg STK-MED ONCE .ROUTE 09/23/20 14:14 09/23/20 14:14 DC Potassium Chloride 100 ml @ 50 mls/hr OT IV 09/24/20 10:00 10/24/20 09:59 09/24/20 10:32 Furosemide (Lasix) 20 mg DAILY IV 09/25/20 09:00 10/25/20 08:59 09/27/20 08:46 Heparin Sodium/ Sodium Chloride 500 ml @ ud STK-MED ONCE IV 09/25/20 07:09 09/25/20 07:10 DC Sterile Water (Water) 1,000 ml STK-MED ONCE .ROUTE 09/25/20 08:59 09/25/20 08:59 DC Cefepime HCl 2 gm/ Sodium Chloride 100 ml @ 100 mls/hr BID IV 09/27/20 09:00 09/27/20 10:48 DC 09/27/20 09:00 Vancomycin HCl 1250 gm/Sodium Chloride 250 ml @ 175 mls/hr BID IV 09/27/20 10:00 10/27/20 09:59 09/27/20 10:00 Cefepime HCl 2 gm/ Sodium Chloride 100 ml @ 100 mls/hr TID IV 09/27/20 15:00 09/27/20 11:00 DC Cefepime HCl 2 gm/ Sodium Chloride 100 ml @ 100 mls/hr Q8H IV 09/27/20 17:00 09/27/20 12:23 DC Cefepime HCl 2 gm/ Sodium Chloride 100 ml @ 100 mls/hr Q8H IV 09/27/20 17:00 10/27/20 16:59 VTE VTE Risk Total Score: 2 VTE Risk Score VTE Risk: Score 0-1 = Low Risk (Aggressive mobilization; early ambulation; no VTE prophylaxis required) Score 2: Moderate Risk (Intermittent/Pneumatic Compression Device OR Lovenox/Heparin/Coumadin) Score 3-4: High Risk (Intermittent/Pneumatic Compression Device AND Lovenox/Heparin/Coumadin) Score > or =5: Highest Risk (Intermittent/Pneumatic Compression Device AND Lovenox/Heparin/Coumadin) Antico:Hep/LMWH/Coum/Xarelto: Yes Mechanical device ordered: Yes VTE VTE Present on Admission: No Currently receiving anticoagul: No VTE Risk Total Score: 2 Antico:Hep/LMWH/Coum/Xarelto: Yes Mechanical device ordered: Yes Assessment/Plan Assessment/Plan Assessment/Plan A Plan #1 Neuro: The pt is intubated and sedated on prop and fentanyl. #2 CV: THe pt has been normotensive but will prn need levo to keep MAP >65. #3 Pulm: The pt is tx with remdesivir lovenox and decadron. VEnt settings of 60% on 10 PEEP. The pt also has evidence of PNA with enterobacter on cefepime and vanco. WOujld treat 7 days. #4 GI: COnt tf #5 Renal: Monitor for renal failure, replete lytes, lasix PRN #6 ID: [id number] #[id number] Endo: keep FS 150-180 #8 Heme: Tx plats >10k hgb >7 #9 PPx: lovenox and PPI I discussed pt with SALES AND CUSTOMER RELATIONS REP and completed the video assessment with assistance from the SALES AND CUSTOMER RELATIONS REP. I spent a total of greater than 60 minutes formulating critical care for this patient today. I saw this patient and completed a full visual exam via audio-visual HIPAA compliant technology. ALVARO HACKETT MD Sep 27, 2020 15:33
[2020-09-27] MEDS: MAXIPIME 2 GM in NS 100ML 100 ML IV SCH (16:04)
[2020-09-27] MEDS: NS IV SCH ×2 (17:36→20:30)
[2020-09-27] MEDS: SUBLIMAZE IV SCH (17:36)
--- NOTE | 2020-09-27 19:00 | NUR ---
1899-Received report from Genaro, COOK JELLY. Assumed care of pt. Fentanyl infusion at 3 mcgs/kg/hour = 24.54 ml/hour, propofol infusion at 50 mcgs/kg/min = 24.54 ml/hour. Goal is to keep MAP > 65. Arterial line waveform accurate with dicrotic notch. Zeroed and recalibrated arterial line left radial site. Correlates within 10 points mmHG of cuff BP. Pt's HR and BP increase with tactile and verbal stimulation and with oral care and oral and ETT suctioning done at this time. Pt grimaces with stimulation, Gums bleed easily with oral care due to advanced peridontal disease with missing and fractured teeth noted. Fever noted per rectal temp 100.9 F. Will monitor closely. Ana Hugger set to cooling temp of 32.0 C degrees. Ice packs placed on pt. Cool bath given to lower temp. STach 112 on bedside monitor. No new changes.
[2020-09-27] MEDS: VANCOMYCIN IV SCH (20:30)
--- NOTE | 2020-09-27 20:30 | NUR ---
Pt has asynchronous breathing over vent. Pt grimaces at times. Versed given per order. Med effective for abnormal breathing.
--- NOTE | 2020-09-27 20:30 | NUR ---
RN suctioned pt via ETT. Pt grimaces and bites ETT when suctioned. Strong cough and gag reflex noted.
[2020-09-27] MEDS ORDERED: VANCOMYCIN IV SCH (21:00)
--- NOTE | 2020-09-27 21:00 | NUR ---
Daughter Kourtney updated on Fever of 101.0 F and sputum cultures with bacterial infection being treated with Vancomycin and meropenem IV antibiotics that started this AM. Aware BP is stable cuff and arterial line. All questions answered. Encouraged Kourtney to call this RN for any questions or updates and promised her I would call if any further updates
--- NOTE | 2020-09-27 22:00 | NUR ---
Called HOUSEKEEPER HEAD to bedside due to resistance met with suctioning via ETT. Tony, HOUSEKEEPER HEAD and Lance, HOUSEKEEPER HEAD came to bedside. Inline suctioning changed per Lance and no further resistance with ETT suctioning.
[2020-09-27] MEDS ORDERED: WATER ONE (23:56)
[2020-09-28] VITALS (88 sets, daily range): BP systolic 80–235; BP diastolic 41–95
[2020-09-28] MEDS: DIPRIVAN IV SCH ×6 (00:04→18:53)
[2020-09-28] MEDS ORDERED: WATER ONE ×3 (00:05→23:59)
[2020-09-28] MEDS: NORCURON IV PRN (00:09)
--- NOTE | 2020-09-28 00:09 | NUR ---
0009-Pt still having acute respiratory distress with asynchronous breathing after versed given. Vecuronium given. RT Delmy increased Fio2 to 70% from 65% due to low o2 sats 83-84% at 2330. Will monitor closely. fever of 101.8 - 102.0 on rectal temp probe. BP stable. K-pad Cooling blanket on pt since 2299.
[2020-09-28] MEDS: D5W-1/2NS 1000ML 1,000 ML IV SCH ×2 (00:20→21:00)
--- NOTE | 2020-09-28 00:25 | NUR ---
Called Dr. Girard re: fever of 102.0 per rectal probe, HR 134 Stach-no ectopy, o2 sats decreased to 84% after increased to 70%. MD states to have SAW TAILER make these vent changes now: increase PEEP from 8 to 10 and titrate fi02 to keep O2 sats >90%. PXCR to be done this AM-1 view. Give NS fluid bolus 250 ml x1 and repeat if HR still > 115. RN to place orders. RN paged Lance,SAW TAILER now to make vent changes
--- NOTE | 2020-09-28 00:28 | NUR ---
Vent changes made per Lance, REGIONAL SALES COORDINATOR. Fio2 decreased to 70% from 75%. PEEP increased to 10
[2020-09-28] MEDS: OFIRMEV IV PRN ×3 (01:00→10:04)
[2020-09-28] MEDS: NS 250ML 250 ML IV PRN ×2 (01:00→01:30)
[2020-09-28] MEDS: MAXIPIME 2 GM in NS 100ML 100 ML IV SCH ×3 (01:15→17:00)
[2020-09-28] MEDS: VERSED IV PRN ×4 (02:09→17:30)
[2020-09-28] MEDS ORDERED: VERSED ONE ×4 (02:09→09:31)
--- NOTE | 2020-09-28 02:09 | NUR ---
Pt has asynchronous breathing on vent setting rate of 24. versed dose given. Fio2 at 70%. HR decreasing to 110-112 after 2 250 ml NS boluses and Ofirmev IV dose for fever. K-Pad cooling blanket on pt continued set at 94 degrees F with multiple ice packs on axillary, groin, and neck areas. O2 sats >95% at present.
--- NOTE | 2020-09-28 04:20 | NUR ---
Versed given for asynchronous breathing over vent. Ice packs replaced to axillae and groin areas. K-Pad cooling blanket on pt continued-set temp is 98.4F to maintain afebrile status. Temp down to 98.8 F per rectal probe. O2 sats up to 99-100%. No acute distress noted after versed given. Labs drawn from arterial line by RN.
[2020-09-28 04:51] LABS: BASOPHIL % 0.2 % (0.0-0.2); EOSINOPHIL # 0.6 10^3/uL (0.0-0.2); EOSINOPHIL % 3.5 % (0.0-5.0); LYMPHOCYTES # 0.66 10^3/uL1 (1.0-4.8); LYMPHOCYTES % 4.1 % (24.0-44.0); MEAN CORP HGB 29.3 pg (26-34); MONOCYTES # 0.6 10^3/uL (0.3-0.8); NEUTROPHIL # 13.3 10^3/uL (1.8-7.7); NEUTROPHILS % 81.8 % (41.0-85.0); PLATELET COUNT 245 10^3/uL (150-400); RED CELL DISTRIBUTION WIDTH 13.7 % (11.5-14.5)
--- NOTE | 2020-09-28 05:00 | NUR ---
Pt has periods of asynchronous breathing on vent. Less tactile and verb al stimulation helps to keep pt calm on vent. Short explanations given to pt in Kinyarw[place], Unable to confirm comprehension while on sedation
[2020-09-28 05:38] LABS: CALCIUM 8.9 mg/dL (8.4-10.5); CARBON DIOXIDE 28.8 mmol/L (20.0-32)
[2020-09-28] MEDS: HUMALOG SQ SCH ×4 (06:05→17:41)
--- NOTE | 2020-09-28 06:05 | NUR ---
Cuff BP and arterial line correlate within 10 points-earlier this shift, there was a difference of 30-35 points with arterial line higher than cuff BP. Cuff BP to be treated to restart levophed to keep MAP >65 per prior MD order
--- NOTE | 2020-09-28 06:20 | NUR ---
AM PCXR done
--- NOTE | 2020-09-28 06:50 | NUR ---
Report to Genaro SCALLOP DREDGER. Aware of all events of 7 pm shift. No changes in drip rates.
[2020-09-28 07:29] LABS: BAND NEUTROPHILS 5 % (2-6); EOSINOPHIL 8 % (1-4); LYMPHOCYTE 4 % (25-36); MONOCYTE 5 % (3-9); SEGMENTED NEUTROPHILS 78 % (31-76)
[2020-09-28 07:39] LABS: ABG PCO2 45.7 mmHg (35.0-45.0); ABG PH 7.411 (7.350-7.450); BE(B) 3.2 mmol/L (-2.0-2.0); HCO3act 28.4 mmol/L (22.0-26.0); pO2 74.5 mmHg (80.0-100.0)
[2020-09-28] MEDS: CEPHULAC NG SCH (09:00)
[2020-09-28] MEDS: LOVENOX SQ SCH ×2 (09:00→21:00)
[2020-09-28] MEDS: PROTONIX IV IV SCH (09:00)
[2020-09-28] MEDS: VITAMIN C PO SCH ×2 (09:00→21:00)
[2020-09-28] MEDS: COLACE PO SCH ×2 (09:00→21:00)
[2020-09-28] MEDS: SEROQUEL PO SCH ×2 (09:00→21:00)
[2020-09-28] MEDS: LASIX IV SCH (09:00)
[2020-09-28] MEDS: NS IV SCH ×3 (09:00→20:29)
[2020-09-28] MEDS: ZINC SULFATE PO SCH ×2 (09:00→21:00)
[2020-09-28] MEDS: VANCOMYCIN IV SCH ×2 (09:00→20:29)
[2020-09-28] MEDS: PRECEDEX 400 MCG/100 ML INJECT 100 ML IV SCH (09:27)
[2020-09-28] MEDS: SUBLIMAZE IV SCH (12:23)
--- NOTE | 2020-09-28 14:30 | TELE.CONS ---
Consultation Reason for Consult: Reason for Consultation: COVID PNA Review of Systems Constitutional: Weakness; No: Fever, Chills, Sweats, Malaise, Other Eyes: No: Pain, Vision change, Conjunctivae inflammation, Eyelid inflammation, Other, Redness ENT: No: Ear pain, Ear discharge, Nose pain, Nose discharge, Nose congestion, Mouth pain, Mouth swelling, Throat pain, Throat swelling, Other Respiratory: Shortness of breath Cardiovascular: No: Chest Pain, Palpitations, Orthopnea, Paroxysmal Noc. Dyspnea, Edema, Lt Headedness, Other Gastrointestinal: No: Nausea, Vomiting, Abdominal Pain, Diarrhea, Constipation, Melena, Hematochezia, Other Genitourinary: No Dysuria, No Frequency, No Incontinence, No Hematuria, No Retention, No Other Musculoskeletal: No: other, neck pain, shoulder pain, arm pain, back pain, hand pain, leg pain, foot pain Skin: No: Rash, Lesions, Jaundice, Bruising, Other Allergies: Coded Allergies: No Known Allergies (Unverified , 09/03/20) Scheduled Lisinopril (Lisinopril), 1 TAB PO BID, (Reported) Metformin Hcl (Metformin Hcl), 1,000 MG PO BID, (Reported) VITALS REVIEW VITALS Vital Sign - Last 24 Hours 09/28/20 09/28/20 09/28/20 09/28/20 08:20 08:22 09:00 09:15 Temp 100.6 100.6 Pulse 108 106 110 113 Resp B/P (MAP) 141/78 (99) 186/61 (102) 178/65 (102) Pulse Ox 98 97 95 93 O2 Delivery Mechanical Ventilator FiO2 65 65 09/28/20 09/28/20 09/28/20 09/28/20 09:30 09:45 10:00 10:15 Temp 100.8 100.9 101.1 100.9 Pulse 116 111 113 108 Resp B/P (MAP) 204/70 (114) 145/55 (85) 118/58 (78) 89/43 (58) 121/49 (73) Pulse Ox 92 93 96 97 09/28/20 09/28/20 09/28/20 09/28/20 10:30 10:45 10:55 11:00 Temp 100.8 100.4 100.0 Pulse 105 101 100 98 Resp B/P (MAP) 82/47 (59) 94/45 (61) 98/53 (68) 80/41 (54) 113/50 (71) Pulse Ox 98 98 97 97 FiO2 70 09/28/20 09/28/20 09/28/20 09/28/20 11:15 11:30 11:45 12:00 Temp 99.7 99.3 99.1 99.0 Pulse 97 94 91 88 Resp B/P (MAP) 113/50 (71) 112/50 (70) 114/50 (71) 104/59 (74) 127/53 (77) Pulse Ox 98 97 99 98 09/28/20 09/28/20 09/28/20 09/28/20 12:15 12:30 12:45 13:00 Temp 98.6 98.2 98.1 98.1 Pulse 88 89 94 93 Resp B/P (MAP) 108/49 (68) 93/43 (60) 149/55 (86) 86/46 (59) 102/44 (63) Pulse Ox 99 99 97 99 09/28/20 09/28/20 13:15 13:30 Temp 98.1 98.2 Pulse 92 89 Resp B/P (MAP) 114/46 (68) 110/48 (68) Pulse Ox 99 99 Intake and Output 09/28/20 06:00 Intake Total 4190 ml Output Total 3700 ml Balance 490 ml LABS LAB RESULTS Laboratory Tests Test 09/03/20 18:04 09/03/20 18:37 09/03/20 21:02 09/04/20 04:47 Bedside Glucose 104 164 Nasal Adenovirus (PCR) NotDetected Nasal Coronavirus Type 229E (PCR) NotDetected Nasal Coronavirus Type HKU1 (PCR) NotDetected Nasal Coronavirus Type NL63 (PCR) NotDetected Nasal Coronavirus Type OC43 (PCR) NotDetected Nasal Enterovirus/Rhinovirus (PCR) NotDetected Nasal Influenza Type A (H1) (PCR) NotDetected Nasal Influenza Type A (H3) (PCR) NotDetected Nasal Swab Influenza Virus B (PCR) NotDetected Nasal Parainfluenza Type 1 (PCR) NotDetected Nasal Parainfluenza Type 2 (PCR) NotDetected Nasal Parainfluenza Type 3 (PCR) NotDetected Nasal Parainfluenza Type 4 (PCR) NotDetected Nasal Resp Syncytial Virus (PCR) NotDetected Nasal Bordetella pertussis DNA (PCR NotDetected Nasal Chlamydophila pneumoniae (PCR NotDetected Nasal Human Metapneumovirus (PCR) NotDetected Nasal Mycoplasma pneumoniae (PCR) NotDetected Nasal SARS-CoV-2 (PCR) NotDetected Influenza Type A (H1N1/) (PCR) NotDetected White Blood Count 8.1 10^3/uL Red Blood Count 4.89 10^6/uL Hemoglobin 14.2 g/dL Hematocrit 40.7 % Mean Corpuscular Volume 83.2 fL Mean Corpuscular Hemoglobin 29.0 pg Mean Corpuscular Hemoglobin Concent 34.9 g/dL Red Cell Distribution Width 12.0 % Platelet Count 185 10^3/uL Mean Platelet Volume 9.6 fL Neutrophils (%) (Auto) 83.5 % Lymphocytes (%) (Auto) 9.7 % Monocytes (%) (Auto) 6.0 % Neutrophils # (Auto) 6.8 10^3/uL Lymphocytes # (Auto) 0.79 10^3/uL1 Monocytes # (Auto) 0.5 10^3/uL Absolute Immature Granulocyte (auto 0.05 10^3 u/L Absolute Eosinophils (auto) 0.0 10^3/uL Immature Granulocytes % 0.60 % Eosinophils % 0.0 % Basophils % 0.2 % Basophils # 0.0 10^3/uL Sodium Level 132 mmol/L Potassium Level 3.6 mmol/L Chloride Level 97.0 mmol/L Carbon Dioxide Level 26.0 mmol/L Anion Gap 12.6 Blood Urea Nitrogen 21 mg/dL Creatinine 1.18 mg/dL Estimated GFR () 75.2 Est GFR (CKD-EPI)(Non-Afr Polish) 62.1 BUN/Creatinine Ratio 17.0 Glucose Level 118 mg/dL Hemoglobin A1c 8.0 % Calcium Level 8.3 mg/dL Total Bilirubin 0.7 mg/dL Aspartate Amino Transf (AST/SGOT) 55 U/L Alanine Aminotransferase (ALT/SGPT) 37 U/L Alkaline Phosphatase 40 U/L Total Protein 6.5 g/dL Albumin 2.3 g/dL Globulin 4.2 Albumin/Globulin Ratio 0.547 Triglycerides Level 65 mg/dL Cholesterol Level 76 mg/dL LDL Cholesterol, Calculated 26.0 VLDL Cholesterol, Calculated 13.0 HDL Cholesterol 37 mg/dL Cholesterol Ratio (LDL/HDL) 0.7 Cholesterol/HDL Ratio 2.012561 Test 09/04/20 05:59 09/04/20 07:15 09/04/20 11:37 09/04/20 12:22 Bedside Glucose 120 123 159 D-Dimer 1.85 mg/L Troponin I < 0.02 ng/mL Pro-B-Type Natriuretic Peptide 97 pg/mL Test 09/04/20 16:36 09/04/20 20:39 09/04/20 20:54 09/05/20 00:10 Bedside Glucose 131 158 Procalcitonin 0.74 ng/mL Yeast/Fungal Identification Test 09/05/20 04:05 09/05/20 05:40 09/05/20 08:09 09/05/20 09:30 White Blood Count 8.7 10^3/uL Red Blood Count 4.49 10^6/uL Hemoglobin 13.2 g/dL Hematocrit 38.0 % Mean Corpuscular Volume 84.6 fL Mean Corpuscular Hemoglobin 29.4 pg Mean Corpuscular Hemoglobin Concent 34.7 g/dL Red Cell Distribution Width 12.0 % Platelet Count 226 10^3/uL Mean Platelet Volume 9.6 fL Neutrophils (%) (Auto) 83.5 % Lymphocytes (%) (Auto) 10.2 % Monocytes (%) (Auto) 5.5 % Neutrophils # (Auto) 7.3 10^3/uL Lymphocytes # (Auto) 0.89 10^3/uL1 Monocytes # (Auto) 0.5 10^3/uL Absolute Immature Granulocyte (auto 0.05 10^3 u/L Absolute Eosinophils (auto) 0.0 10^3/uL Immature Granulocytes % 0.60 % Eosinophils % 0.1 % Basophils % 0.1 % Basophils # 0.0 10^3/uL Sodium Level 136 mmol/L Potassium Level 3.5 mmol/L Chloride Level 103.0 mmol/L Carbon Dioxide Level 24.3 mmol/L Anion Gap 12.2 Blood Urea Nitrogen 20 mg/dL Creatinine 1.01 mg/dL Estimated GFR () 90.0 Est GFR (CKD-EPI)(Non-Afr Polish) 74.4 BUN/Creatinine Ratio 19.0 Glucose Level 104 mg/dL Calcium Level 8.1 mg/dL Phosphorus Level 2.5 mg/dL Magnesium Level 2.2 mg/dL Total Bilirubin 0.5 mg/dL Aspartate Amino Transf (AST/SGOT) 46 U/L Alanine Aminotransferase (ALT/SGPT) 29 U/L Alkaline Phosphatase 38 U/L Total Protein 6.1 g/dL Albumin 2.1 g/dL Globulin 4.0 Albumin/Globulin Ratio 0.525 Bedside Glucose 99 95 Nasal Adenovirus (PCR) NotDetected Nasal Coronavirus Type 229E (PCR) NotDetected Nasal Coronavirus Type HKU1 (PCR) NotDetected Nasal Coronavirus Type NL63 (PCR) NotDetected Nasal Coronavirus Type OC43 (PCR) NotDetected Nasal Enterovirus/Rhinovirus (PCR) NotDetected Nasal Influenza Type A (H1) (PCR) NotDetected Nasal Influenza Type A (H3) (PCR) NotDetected Nasal Swab Influenza Virus B (PCR) NotDetected Nasal Parainfluenza Type 1 (PCR) NotDetected Nasal Parainfluenza Type 2 (PCR) NotDetected Nasal Parainfluenza Type 3 (PCR) NotDetected Nasal Parainfluenza Type 4 (PCR) NotDetected Nasal Resp Syncytial Virus (PCR) NotDetected Nasal Bordetella pertussis DNA (PCR NotDetected Nasal Chlamydophila pneumoniae (PCR NotDetected Nasal Human Metapneumovirus (PCR) NotDetected Nasal Mycoplasma pneumoniae (PCR) NotDetected Nasal SARS-CoV-2 (PCR) DETECTED Influenza Type A (H1N1/09) (PCR) NotDetected Test 09/05/20 10:24 09/05/20 12:44 09/05/20 17:15 09/05/20 19:49 Erythrocyte Sedimentation Rate 78 mm/hr C-Reactive Protein 13.99 mg/dL Anti-Nuclear FA Antibody Screen Negative Anti-Nuclear Ab Homogeneous Pattern Anti-Nuclear Ab Nucleolar Pattern Anti-Nuclear Ab Speckled Pattern Anti-Nuclear Ab Centromere Pattern Anti-Nuclear Antibody Comment Cytoplasmic ANCA (c-ANCA) Antibody <1:20 titer Atypical p-ANCA <1:20 titer Perinuclear ANCA (p-ANCA) Antibody <1:20 titer HIV-1 Antibody NON-REACTIVE HIV-2 Antibody NON-REACTIVE Bedside Glucose 88 154 141 Test 09/06/20 04:09 09/06/20 05:29 09/06/20 11:39 09/06/20 16:09 White Blood Count 7.7 10^3/uL Red Blood Count 4.20 10^6/uL Hemoglobin 12.5 g/dL Hematocrit 35.4 % Mean Corpuscular Volume 84.3 fL Mean Corpuscular Hemoglobin 29.8 pg Mean Corpuscular Hemoglobin Concent 35.3 g/dL Red Cell Distribution Width 11.9 % Platelet Count 208 10^3/uL Mean Platelet Volume 10.4 fL Neutrophils (%) (Auto) 82.7 % Lymphocytes (%) (Auto) 8.5 % Monocytes (%) (Auto) 7.8 % Neutrophils # (Auto) 6.3 10^3/uL Lymphocytes # (Auto) 0.65 10^3/uL1 Monocytes # (Auto) 0.6 10^3/uL Absolute Immature Granulocyte (auto 0.04 10^3 u/L Absolute Eosinophils (auto) 0.0 10^3/uL Immature Granulocytes % 0.50 % Eosinophils % 0.1 % Basophils % 0.4 % Basophils # 0.0 10^3/uL Sodium Level 137 mmol/L Potassium Level 3.5 mmol/L Chloride Level 104.0 mmol/L Carbon Dioxide Level 23.9 mmol/L Anion Gap 12.6 Blood Urea Nitrogen 17 mg/dL Creatinine 0.94 mg/dL Estimated GFR () 97.8 Est GFR (CKD-EPI)(Non-Afr Polish) 80.8 BUN/Creatinine Ratio 18.0 Glucose Level 181 mg/dL Calcium Level 8.0 mg/dL Phosphorus Level 3.2 mg/dL Magnesium Level 2.2 mg/dL Total Bilirubin 0.5 mg/dL Aspartate Amino Transf (AST/SGOT) 45 U/L Alanine Aminotransferase (ALT/SGPT) 28 U/L Alkaline Phosphatase 38 U/L Total Protein 5.9 g/dL Albumin 1.8 g/dL Globulin 4.1 Albumin/Globulin Ratio 0.439 Bedside Glucose 166 133 192 Test 09/06/20 19:56 09/07/20 05:22 09/07/20 07:46 09/07/20 10:47 Bedside Glucose 190 181 222 238 Test 09/07/20 17:34 09/07/20 17:36 09/07/20 18:20 09/07/20 18:59 Bedside Glucose 220 236 Blood Gas Sample Site RR Blood Gas pH 7.403 Blood Gas PCO2 30.6 mmHg Blood Gas PO2 62.4 mmHg Blood Gas HCO3 18.7 mmol/L Blood Gas Base Excess -4.8 mmol/L Abdi Test POSITIVE Arterial Blood Oxygen Saturation 92.1 % Deoxyhemoglobin 7.8 % Carboxyhemoglobin 0.7 % Methemoglobin 0.2 % Total Hemoglobin 14.6 % Total Oxygen Concentration 18.7 % Blood Gas Temperature 37.0 Oxygen Delivery Method (LAB) NON-REBREATHER MASK FiO2 100 % Total Carbon Dioxide 19.6 mmol/L Hemoglobin 14.0 g/dL Hematocrit 40.0 % Platelet Count 386 10^3/uL Prothrombin Time 11.2 SEC Prothrombin Time INR (Non-Therap) 1.1 Fibrinogen > 450 mg/dL Test 09/07/20 20:18 09/08/20 05:14 09/08/20 05:20 09/08/20 06:57 Bedside Glucose 226 204 White Blood Count 11.7 10^3/uL Red Blood Count 4.60 10^6/uL Hemoglobin 13.4 g/dL Hematocrit 38.5 % Mean Corpuscular Volume 83.7 fL Mean Corpuscular Hemoglobin 29.1 pg Mean Corpuscular Hemoglobin Concent 34.8 g/dL Red Cell Distribution Width 12.0 % Platelet Count 360 10^3/uL Mean Platelet Volume 9.7 fL Neutrophils (%) (Auto) 89.4 % Lymphocytes (%) (Auto) 4.8 % Monocytes (%) (Auto) 4.9 % Neutrophils # (Auto) 10.5 10^3/uL Lymphocytes # (Auto) 0.56 10^3/uL1 Monocytes # (Auto) 0.6 10^3/uL Absolute Immature Granulocyte (auto 0.08 10^3 u/L Absolute Eosinophils (auto) 0.0 10^3/uL Immature Granulocytes % 0.70 % Eosinophils % 0.0 % Basophils % 0.2 % Basophils # 0.0 10^3/uL D-Dimer 4.40 mg/L Sodium Level 139 mmol/L Potassium Level 3.4 mmol/L Chloride Level 108.0 mmol/L Carbon Dioxide Level 21.4 mmol/L Anion Gap 13.0 Blood Urea Nitrogen 22 mg/dL Creatinine 0.87 mg/dL Estimated GFR () 106.9 Est GFR (CKD-EPI)(Non-Afr Polish) 88.3 BUN/Creatinine Ratio 25.0 Glucose Level 214 mg/dL Calcium Level 8.1 mg/dL Phosphorus Level 2.2 mg/dL Magnesium Level 2.2 mg/dL Ferritin 1364 ng/mL Total Bilirubin 0.3 mg/dL Aspartate Amino Transf (AST/SGOT) 44 U/L Alanine Aminotransferase (ALT/SGPT) 23 U/L Alkaline Phosphatase 45 U/L Lactate Dehydrogenase 300 U/L Total Creatine Kinase 48 U/L C-Reactive Protein 3.22 mg/dL Total Protein 5.9 g/dL Albumin 2.0 g/dL Globulin 3.9 Albumin/Globulin Ratio 0.512 Procalcitonin 0.29 ng/mL Segmented Neutrophils 95 % Lymphocytes 4 % Monocytes 1 % Platelet Estimate ADEQUATE Platelet Morphology NORMAL Test 09/08/20 07:39 09/08/20 11:31 09/08/20 16:25 09/08/20 20:15 Bedside Glucose 223 208 183 217 Test 09/09/20 05:05 09/09/20 06:31 09/09/20 07:23 09/09/20 07:39 Bedside Glucose 169 231 White Blood Count 11.5 10^3/uL Red Blood Count 4.52 10^6/uL Hemoglobin 13.1 g/dL Hematocrit 37.4 % Mean Corpuscular Volume 82.7 fL Mean Corpuscular Hemoglobin 29.0 pg Mean Corpuscular Hemoglobin Concent 35.0 g/dL Red Cell Distribution Width 12.0 % Platelet Count 367 10^3/uL Mean Platelet Volume 9.2 fL Neutrophils (%) (Auto) 87.0 % Lymphocytes (%) (Auto) 5.3 % Monocytes (%) (Auto) 7.0 % Neutrophils # (Auto) 10.0 10^3/uL Lymphocytes # (Auto) 0.61 10^3/uL1 Monocytes # (Auto) 0.8 10^3/uL Absolute Immature Granulocyte (auto 0.07 10^3 u/L Absolute Eosinophils (auto) 0.0 10^3/uL Immature Granulocytes % 0.60 % Eosinophils % 0.0 % Basophils % 0.1 % Basophils # 0.0 10^3/uL Sodium Level 141 mmol/L Potassium Level 3.9 mmol/L Chloride Level 109.0 mmol/L Carbon Dioxide Level 22.4 mmol/L Anion Gap 13.5 Blood Urea Nitrogen 22 mg/dL Creatinine 0.81 mg/dL Estimated GFR () 116.1 Est GFR (CKD-EPI)(Non-Afr Polish) 95.9 BUN/Creatinine Ratio 27.0 Glucose Level 187 mg/dL Calcium Level 7.9 mg/dL Phosphorus Level 2.7 mg/dL Magnesium Level 2.0 mg/dL Total Bilirubin 0.4 mg/dL Aspartate Amino Transf (AST/SGOT) 32 U/L Alanine Aminotransferase (ALT/SGPT) 29 U/L Alkaline Phosphatase 44 U/L Total Protein 5.5 g/dL Albumin 2.0 g/dL Globulin 3.5 Albumin/Globulin Ratio 0.571 Segmented Neutrophils 91 % Lymphocytes 5 % Monocytes 4 % Platelet Estimate ADEQUATE Platelet Morphology NORMAL Test 09/09/20 11:15 09/09/20 16:50 09/09/20 19:54 09/10/20 04:26 Bedside Glucose 236 192 219 White Blood Count 11.8 10^3/uL Red Blood Count 4.77 10^6/uL Hemoglobin 13.8 g/dL Hematocrit 39.8 % Mean Corpuscular Volume 83.4 fL Mean Corpuscular Hemoglobin 28.9 pg Mean Corpuscular Hemoglobin Concent 34.7 g/dL Red Cell Distribution Width 12.3 % Platelet Count 361 10^3/uL Mean Platelet Volume 9.2 fL Neutrophils (%) (Auto) 84.0 % Lymphocytes (%) (Auto) 9.0 % Monocytes (%) (Auto) 4.8 % Neutrophils # (Auto) 9.9 10^3/uL Lymphocytes # (Auto) 1.06 10^3/uL1 Monocytes # (Auto) 0.6 10^3/uL Absolute Immature Granulocyte (auto 0.23 10^3 u/L Absolute Eosinophils (auto) 0.0 10^3/uL Immature Granulocytes % 2.00 % Eosinophils % 0.1 % Basophils % 0.1 % Basophils # 0.0 10^3/uL D-Dimer 8.09 mg/L Sodium Level 140 mmol/L Potassium Level 3.7 mmol/L Chloride Level 106.0 mmol/L Carbon Dioxide Level 27.2 mmol/L Anion Gap 10.5 Blood Urea Nitrogen 19 mg/dL Creatinine 0.96 mg/dL Estimated GFR () 95.4 Est GFR (CKD-EPI)(Non-Afr Polish) 78.9 BUN/Creatinine Ratio 19.0 Glucose Level 100 mg/dL Calcium Level 7.9 mg/dL Phosphorus Level 2.4 mg/dL Magnesium Level 1.8 mg/dL Ferritin 1073 ng/mL Total Bilirubin 0.7 mg/dL Aspartate Amino Transf (AST/SGOT) 27 U/L Alanine Aminotransferase (ALT/SGPT) 29 U/L Alkaline Phosphatase 58 U/L Lactate Dehydrogenase 295 U/L Total Creatine Kinase 41 U/L C-Reactive Protein 3.25 mg/dL Total Protein 5.7 g/dL Albumin 2.0 g/dL Globulin 3.7 Albumin/Globulin Ratio 0.540 Procalcitonin 0.10 ng/mL Test 09/10/20 04:54 09/10/20 07:10 09/10/20 11:33 09/10/20 16:46 Bedside Glucose 93 134 173 178 Test 09/10/20 19:51 09/11/20 01:56 09/11/20 02:03 09/11/20 05:13 Bedside Glucose 169 159 145 Blood Gas Sample Site LB Blood Gas pH 7.398 Blood Gas PCO2 31.4 mmHg Blood Gas PO2 54.5 mmHg Blood Gas HCO3 18.9 mmol/L Blood Gas Base Excess -4.8 mmol/L Abdi Test POSITIVE Arterial Blood Oxygen Saturation 87.1 % Deoxyhemoglobin 12.9 % Carboxyhemoglobin 0.3 % Methemoglobin 0.0 % Total Hemoglobin 13.4 % Total Oxygen Concentration 16.3 % Blood Gas Temperature 37 Oxygen Delivery Method (LAB) NON-REBREATHER MASK FiO2 100 % Total Carbon Dioxide 19.9 mmol/L Test 09/11/20 05:14 09/11/20 05:41 09/11/20 07:35 09/11/20 07:50 White Blood Count 11.5 10^3/uL Red Blood Count 4.66 10^6/uL Hemoglobin 13.4 g/dL Hematocrit 39.1 % Mean Corpuscular Volume 83.9 fL Mean Corpuscular Hemoglobin 28.8 pg Mean Corpuscular Hemoglobin Concent 34.3 g/dL Red Cell Distribution Width 12.2 % Platelet Count 296 10^3/uL Mean Platelet Volume 9.2 fL Neutrophils (%) (Auto) 87.0 % Lymphocytes (%) (Auto) 5.9 % Monocytes (%) (Auto) 5.0 % Neutrophils # (Auto) 10.0 10^3/uL Lymphocytes # (Auto) 0.68 10^3/uL1 Monocytes # (Auto) 0.6 10^3/uL Absolute Immature Granulocyte (auto 0.23 10^3 u/L Absolute Eosinophils (auto) 0.0 10^3/uL Immature Granulocytes % 2.00 % Eosinophils % 0.0 % Basophils % 0.1 % Basophils # 0.0 10^3/uL Sodium Level 139 mmol/L Potassium Level 3.9 mmol/L Chloride Level 106.0 mmol/L Carbon Dioxide Level 23.2 mmol/L Anion Gap 13.7 Blood Urea Nitrogen 22 mg/dL Creatinine 0.88 mg/dL Estimated GFR () 105.5 Est GFR (CKD-EPI)(Non-Afr Polish) 87.2 BUN/Creatinine Ratio 25.0 Glucose Level 151 mg/dL Calcium Level 8.3 mg/dL Phosphorus Level 3.1 mg/dL Magnesium Level 2.3 mg/dL Total Bilirubin 0.7 mg/dL Aspartate Amino Transf (AST/SGOT) 27 U/L Alanine Aminotransferase (ALT/SGPT) 23 U/L Alkaline Phosphatase 71 U/L Total Protein 5.7 g/dL Albumin 2.0 g/dL Globulin 3.7 Albumin/Globulin Ratio 0.540 Blood Gas Sample Site RT RADIAL ARTERY RR Blood Gas pH 7.405 7.398 Blood Gas PCO2 35.2 mmHg 36.1 mmHg Blood Gas PO2 53.5 mmHg 52.5 mmHg Blood Gas HCO3 21.6 mmol/L 21.8 mmol/L Blood Gas Base Excess -2.5 mmol/L -2.5 mmol/L Abdi Test POSITIVE POSITIVE Arterial Blood Oxygen Saturation 87.9 % 86.0 % Deoxyhemoglobin 12.1 % 13.9 % Carboxyhemoglobin 0 % 0.6 % Methemoglobin 0.1 % 0.3 % Total Hemoglobin 14.0 % 13.9 % Total Oxygen Concentration 17.3 % 16.6 % Blood Gas Temperature 37 37 Oxygen Delivery Method (LAB) NON-REBREATHER MASK NON-REBREATHER MASK FiO2 100 % 100 % Total Carbon Dioxide 22.6 mmol/L 22.9 mmol/L Bedside Glucose 133 Test 09/11/20 11:42 09/11/20 16:15 09/11/20 20:50 09/12/20 04:11 Bedside Glucose 185 175 201 White Blood Count 16.3 10^3/uL Red Blood Count 4.45 10^6/uL Hemoglobin 13.2 g/dL Hematocrit 37.1 % Mean Corpuscular Volume 83.4 fL Mean Corpuscular Hemoglobin 29.7 pg Mean Corpuscular Hemoglobin Concent 35.6 g/dL Red Cell Distribution Width 12.3 % Platelet Count 316 10^3/uL Mean Platelet Volume 9.2 fL Neutrophils (%) (Auto) 89.5 % Lymphocytes (%) (Auto) 3.9 % Monocytes (%) (Auto) 5.0 % Neutrophils # (Auto) 14.6 10^3/uL Lymphocytes # (Auto) 0.64 10^3/uL1 Monocytes # (Auto) 0.8 10^3/uL Absolute Immature Granulocyte (auto 0.24 10^3 u/L Absolute Eosinophils (auto) 0.0 10^3/uL Immature Granulocytes % 1.50 % Eosinophils % 0.0 % Basophils % 0.1 % Basophils # 0.0 10^3/uL Sodium Level 139 mmol/L Potassium Level 4.1 mmol/L Chloride Level 105.0 mmol/L Carbon Dioxide Level 26.4 mmol/L Anion Gap 11.7 Blood Urea Nitrogen 24 mg/dL Creatinine 0.82 mg/dL Estimated GFR () 114.5 Est GFR (CKD-EPI)(Non-Afr Polish) 94.6 BUN/Creatinine Ratio 29.0 Glucose Level 144 mg/dL Calcium Level 8.3 mg/dL Total Bilirubin 0.6 mg/dL Aspartate Amino Transf (AST/SGOT) 24 U/L Alanine Aminotransferase (ALT/SGPT) 19 U/L Alkaline Phosphatase 69 U/L Total Protein 5.6 g/dL Albumin 2.0 g/dL Globulin 3.6 Albumin/Globulin Ratio 0.555 Test 09/12/20 05:21 09/12/20 07:14 09/12/20 11:45 09/12/20 15:44 Bedside Glucose 132 173 262 Blood Gas Sample Site RR Blood Gas pH 7.429 Blood Gas PCO2 33.6 mmHg Blood Gas PO2 47.2 mmHg Blood Gas HCO3 21.8 mmol/L Blood Gas Base Excess -1.7 mmol/L Abdi Test POSITIVE Arterial Blood Oxygen Saturation 82.7 % Deoxyhemoglobin 17.1 % Carboxyhemoglobin 0.9 % Methemoglobin 0.3 % Total Hemoglobin 15.0 % Total Oxygen Concentration 17.2 % Blood Gas Temperature 37 Oxygen Delivery Method (LAB) NON-REBREATHER MASK FiO2 100 % Total Carbon Dioxide 22.8 mmol/L Test 09/12/20 21:13 09/13/20 04:13 09/13/20 07:45 09/13/20 12:57 Bedside Glucose 202 195 White Blood Count 13.7 10^3/uL Red Blood Count 4.63 10^6/uL Hemoglobin 13.4 g/dL Hematocrit 38.7 % Mean Corpuscular Volume 83.6 fL Mean Corpuscular Hemoglobin 28.9 pg Mean Corpuscular Hemoglobin Concent 34.6 g/dL Red Cell Distribution Width 12.4 % Platelet Count 132 10^3/uL Mean Platelet Volume 10.4 fL Neutrophils (%) (Auto) 89.9 % Lymphocytes (%) (Auto) 4.0 % Monocytes (%) (Auto) 4.7 % Neutrophils # (Auto) 12.3 10^3/uL Lymphocytes # (Auto) 0.55 10^3/uL1 Monocytes # (Auto) 0.6 10^3/uL Absolute Immature Granulocyte (auto 0.18 10^3 u/L Absolute Eosinophils (auto) 0.0 10^3/uL Immature Granulocytes % 1.30 % Eosinophils % 0.0 % Basophils % 0.1 % Basophils # 0.0 10^3/uL D-Dimer 6.10 mg/L Sodium Level 134 mmol/L Potassium Level 3.9 mmol/L Chloride Level 101.0 mmol/L Carbon Dioxide Level 24.6 mmol/L Anion Gap 12.3 Blood Urea Nitrogen 21 mg/dL Creatinine 0.83 mg/dL Estimated GFR () 112.9 Est GFR (CKD-EPI)(Non-Afr Polish) 93.3 BUN/Creatinine Ratio 25.0 Glucose Level 163 mg/dL Calcium Level 8.1 mg/dL Total Bilirubin 0.6 mg/dL Aspartate Amino Transf (AST/SGOT) 25 U/L Alanine Aminotransferase (ALT/SGPT) 18 U/L Alkaline Phosphatase 65 U/L Ammonia 32 umol/L Pro-B-Type Natriuretic Peptide 1380 pg/mL Total Protein 5.6 g/dL Albumin 1.9 g/dL Globulin 3.7 Albumin/Globulin Ratio 0.513 Blood Gas Sample Site RR Blood Gas pH 7.410 Blood Gas PCO2 47.1 mmHg Blood Gas PO2 55.4 mmHg Blood Gas HCO3 25.9 mmol/L Blood Gas Base Excess 1.1 mmol/L Abdi Test POSITIVE Arterial Blood Oxygen Saturation 87.4 % Deoxyhemoglobin 12.5 % Carboxyhemoglobin 0.8 % Methemoglobin 0.2 % Total Hemoglobin 13.9 % Total Oxygen Concentration 16.9 % Oxygen Delivery Method (LAB) BIPAP Blood Gas Vent Mode AVAPS Blood Gas Vent Rate 14 FiO2 100 % Blood Gas Tidal Volume 400 ML Blood Gas PEEP 8 CMH2O Total Carbon Dioxide 27.2 mmol/L Test 09/13/20 13:06 09/13/20 14:10 09/13/20 16:18 09/13/20 17:19 Blood Gas Sample Site RR Blood Gas pH 7.388 Blood Gas PCO2 52.0 mmHg Blood Gas PO2 52.0 mmHg Blood Gas HCO3 22.7 mmol/L Blood Gas Base Excess -1.9 mmol/L Abdi Test POSITIVE Arterial Blood Oxygen Saturation 83.6 % Carboxyhemoglobin 0 % Methemoglobin 0.2 % Total Hemoglobin 14.7 % Blood Gas Temperature 37 Oxygen Delivery Method (LAB) VENT Blood Gas Vent Mode ACVC Blood Gas Vent Rate 25 FiO2 100 % Blood Gas Tidal Volume 400 ML Blood Gas PEEP 6 CMH2O Total Carbon Dioxide 23.9 mmol/L Urine Collection Type UNKNOWN Urine Color YELLOW Urine Appearance CLEAR Urine Bilirubin NEGATIVE MG/DL Urine Ketones NEGATIVE Urine Specific [place] 1.010 Urine pH 6.5 Urine Protein NEGATIVE Urine Urobilinogen NORMAL Urine Nitrate NEGATIVE Urine Leukocyte Esterase NEGATIVE Urine Blood NEGATIVE Urine Glucose 100 Procalcitonin 0.26 ng/mL Bedside Glucose 243 Test 09/13/20 23:38 09/14/20 03:53 09/14/20 05:21 09/14/20 08:30 Bedside Glucose 137 184 White Blood Count 15.2 10^3/uL Red Blood Count 4.89 10^6/uL Hemoglobin 14.3 g/dL Hematocrit 41.5 % Mean Corpuscular Volume 84.9 fL Mean Corpuscular Hemoglobin 29.2 pg Mean Corpuscular Hemoglobin Concent 34.5 g/dL Red Cell Distribution Width 12.9 % Platelet Count 260 10^3/uL Mean Platelet Volume 10.3 fL Neutrophils (%) (Auto) 92.6 % Lymphocytes (%) (Auto) 3.0 % Monocytes (%) (Auto) 2.5 % Neutrophils # (Auto) 14.1 10^3/uL Lymphocytes # (Auto) 0.45 10^3/uL1 Monocytes # (Auto) 0.4 10^3/uL Absolute Immature Granulocyte (auto 0.27 10^3 u/L Absolute Eosinophils (auto) 0.0 10^3/uL Immature Granulocytes % 1.80 % Eosinophils % 0.0 % Basophils % 0.1 % Basophils # 0.0 10^3/uL Sodium Level 141 mmol/L Potassium Level 4.6 mmol/L Chloride Level 105.0 mmol/L Carbon Dioxide Level 24.2 mmol/L Anion Gap 16.4 Blood Urea Nitrogen 34 mg/dL Creatinine 1.14 mg/dL Estimated GFR () 78.3 Est GFR (CKD-EPI)(Non-Afr Polish) 64.7 BUN/Creatinine Ratio 29.0 Glucose Level 179 mg/dL Calcium Level 8.2 mg/dL Total Bilirubin 0.6 mg/dL Aspartate Amino Transf (AST/SGOT) 19 U/L Alanine Aminotransferase (ALT/SGPT) 16 U/L Alkaline Phosphatase 61 U/L Total Protein 5.8 g/dL Albumin 2.0 g/dL Globulin 3.8 Albumin/Globulin Ratio 0.526 Blood Gas Sample Site RT RADIAL ARTERY Blood Gas pH 7.377 Blood Gas PCO2 39.9 mmHg Blood Gas PO2 55.2 mmHg Blood Gas HCO3 22.9 mmol/L Blood Gas Base Excess -2.0 mmol/L Abdi Test POSITIVE Arterial Blood Oxygen Saturation 85.5 % Deoxyhemoglobin 14.4 % Carboxyhemoglobin 0.7 % Methemoglobin 0.2 % Total Hemoglobin 15.1 % Total Oxygen Concentration 18.0 % Blood Gas Temperature 37 Oxygen Delivery Method (LAB) VENT Blood Gas Vent Mode ACVC Blood Gas Vent Rate 25 FiO2 100 % Blood Gas Tidal Volume 400 ML Blood Gas PEEP 10 CMH2O Total Carbon Dioxide 24.1 mmol/L Test 09/14/20 12:01 09/14/20 15:20 09/14/20 17:42 09/15/20 00:20 Bedside Glucose 201 232 283 Lactic Acid Level 1.3 mmol/L Test 09/15/20 04:09 09/15/20 05:49 09/15/20 05:50 09/15/20 08:02 White Blood Count 16.8 10^3/uL Red Blood Count 4.60 10^6/uL Hemoglobin 13.4 g/dL Hematocrit 39.6 % Mean Corpuscular Volume 86.1 fL Mean Corpuscular Hemoglobin 29.1 pg Mean Corpuscular Hemoglobin Concent 33.8 g/dL Red Cell Distribution Width 13.1 % Platelet Count 355 10^3/uL Mean Platelet Volume 9.9 fL Neutrophils (%) (Auto) 92.1 % Lymphocytes (%) (Auto) 2.5 % Monocytes (%) (Auto) 3.7 % Neutrophils # (Auto) 15.5 10^3/uL Lymphocytes # (Auto) 0.42 10^3/uL1 Monocytes # (Auto) 0.6 10^3/uL Absolute Immature Granulocyte (auto 0.28 10^3 u/L Absolute Eosinophils (auto) 0.0 10^3/uL Immature Granulocytes % 1.70 % Eosinophils % 0.0 % Basophils % 0.0 % Basophils # 0.0 10^3/uL Sodium Level 139 mmol/L Potassium Level 4.1 mmol/L Chloride Level 105.0 mmol/L Carbon Dioxide Level 23.9 mmol/L Anion Gap 14.2 Blood Urea Nitrogen 52 mg/dL Creatinine 1.34 mg/dL Estimated GFR () 64.9 Est GFR (CKD-EPI)(Non-Afr Polish) 53.7 BUN/Creatinine Ratio 38.0 Glucose Level 305 mg/dL Calcium Level 7.1 mg/dL Total Bilirubin 0.4 mg/dL Aspartate Amino Transf (AST/SGOT) 17 U/L Alanine Aminotransferase (ALT/SGPT) 17 U/L Alkaline Phosphatase 65 U/L C-Reactive Protein 3.29 mg/dL Total Protein 5.6 g/dL Albumin 2.0 g/dL Globulin 3.6 Albumin/Globulin Ratio 0.555 Bedside Glucose 276 Segmented Neutrophils 98 % Lymphocytes 1 % Monocytes 1 % Platelet Estimate ADEQUATE Platelet Morphology NORMAL Blood Gas Sample Site ART LINE Blood Gas pH 7.335 Blood Gas PCO2 42.5 mmHg Blood Gas PO2 72.2 mmHg Blood Gas HCO3 22.2 mmol/L Blood Gas Base Excess -3.6 mmol/L Abdi Test POSITIVE Arterial Blood Oxygen Saturation 93.1 % Deoxyhemoglobin 6.8 % Carboxyhemoglobin 0.6 % Methemoglobin 0.3 % Total Hemoglobin 13.6 % Total Oxygen Concentration 17.7 % Blood Gas Temperature 37 Oxygen Delivery Method (LAB) VENT Blood Gas Vent Mode ACVC Blood Gas Vent Rate 25 FiO2 100 % Blood Gas Tidal Volume 400 ML Blood Gas PEEP 12 CMH2O Total Carbon Dioxide 23.5 mmol/L Test 09/15/20 11:39 09/15/20 15:05 09/15/20 17:08 09/15/20 20:08 Bedside Glucose 294 288 260 Procalcitonin 0.15 ng/mL Test 09/15/20 23:59 09/16/20 04:23 09/16/20 05:22 09/16/20 05:42 Bedside Glucose 284 278 White Blood Count 15.2 10^3/uL Red Blood Count 4.03 10^6/uL Hemoglobin 11.7 g/dL Hematocrit 35.3 % Mean Corpuscular Volume 87.6 fL Mean Corpuscular Hemoglobin 29.0 pg Mean Corpuscular Hemoglobin Concent 33.1 g/dL Red Cell Distribution Width 13.1 % Platelet Count 234 10^3/uL Mean Platelet Volume 10.2 fL Neutrophils (%) (Auto) 94.0 % Lymphocytes (%) (Auto) 1.8 % Monocytes (%) (Auto) 3.0 % Neutrophils # (Auto) 14.3 10^3/uL Lymphocytes # (Auto) 0.28 10^3/uL1 Monocytes # (Auto) 0.5 10^3/uL Absolute Immature Granulocyte (auto 0.16 10^3 u/L Absolute Eosinophils (auto) 0.0 10^3/uL Immature Granulocytes % 1.10 % Eosinophils % 0.0 % Basophils % 0.1 % Basophils # 0.0 10^3/uL D-Dimer 1.67 mg/L Sodium Level 140 mmol/L Potassium Level 4.9 mmol/L Chloride Level 107.0 mmol/L Carbon Dioxide Level 24.8 mmol/L Anion Gap 13.1 Blood Urea Nitrogen 50 mg/dL Creatinine 1.14 mg/dL Estimated GFR () 78.3 Est GFR (CKD-EPI)(Non-Afr Polish) 64.7 BUN/Creatinine Ratio 43.0 Glucose Level 313 mg/dL Calcium Level 7.0 mg/dL Total Bilirubin 0.3 mg/dL Aspartate Amino Transf (AST/SGOT) 16 U/L Alanine Aminotransferase (ALT/SGPT) 16 U/L Alkaline Phosphatase 68 U/L Total Protein 4.9 g/dL Albumin 1.8 g/dL Globulin 3.1 Albumin/Globulin Ratio 0.580 Blood Gas Sample Site ART LINE Blood Gas pH 7.310 Blood Gas PCO2 46.1 mmHg Blood Gas PO2 61.6 mmHg Blood Gas HCO3 22.7 mmol/L Blood Gas Base Excess -3.7 mmol/L Abdi Test N/A Arterial Blood Oxygen Saturation 89.2 % Deoxyhemoglobin 10.7 % Carboxyhemoglobin 0.3 % Methemoglobin 0.3 % Total Hemoglobin 13.4 % Total Oxygen Concentration 16.7 % Blood Gas Temperature 37 Oxygen Delivery Method (LAB) VENT Blood Gas Vent Mode ACVC Blood Gas Vent Rate 25 FiO2 75 % Blood Gas Tidal Volume 400 ML Blood Gas PEEP 10 CMH2O Total Carbon Dioxide 24.1 mmol/L Test 09/16/20 06:16 09/16/20 12:17 09/16/20 13:15 09/16/20 17:13 Segmented Neutrophils 97 % Lymphocytes 1 % Monocytes 2 % Platelet Estimate ADEQUATE Platelet Morphology NORMAL Bedside Glucose 222 170 Procalcitonin 0.05 ng/mL Test 09/16/20 21:21 09/17/20 00:03 09/17/20 03:50 09/17/20 04:10 Bedside Glucose 186 221 235 White Blood Count 17.5 10^3/uL Red Blood Count 4.13 10^6/uL Hemoglobin 11.8 g/dL Hematocrit 36.6 % Mean Corpuscular Volume 88.6 fL Mean Corpuscular Hemoglobin 28.6 pg Mean Corpuscular Hemoglobin Concent 32.2 g/dL Red Cell Distribution Width 13.0 % Platelet Count 217 10^3/uL Mean Platelet Volume 9.7 fL Neutrophils (%) (Auto) 93.7 % Lymphocytes (%) (Auto) 1.3 % Monocytes (%) (Auto) 4.1 % Neutrophils # (Auto) 16.4 10^3/uL Lymphocytes # (Auto) 0.22 10^3/uL1 Monocytes # (Auto) 0.7 10^3/uL Absolute Immature Granulocyte (auto 0.16 10^3 u/L Absolute Eosinophils (auto) 0.0 10^3/uL Immature Granulocytes % 0.90 % Eosinophils % 0.0 % Basophils % 0.0 % Basophils # 0.0 10^3/uL Sodium Level 141 mmol/L Potassium Level 5.2 mmol/L Chloride Level 109.0 mmol/L Carbon Dioxide Level 26.2 mmol/L Anion Gap 11.0 Blood Urea Nitrogen 56 mg/dL Creatinine 1.02 mg/dL Estimated GFR () 89.0 Est GFR (CKD-EPI)(Non-Afr Polish) 73.5 BUN/Creatinine Ratio 54.0 Glucose Level 242 mg/dL Calcium Level 7.4 mg/dL Total Bilirubin 0.3 mg/dL Aspartate Amino Transf (AST/SGOT) 19 U/L Alanine Aminotransferase (ALT/SGPT) 20 U/L Alkaline Phosphatase 68 U/L Total Protein 4.6 g/dL Albumin 1.9 g/dL Globulin 2.7 Albumin/Globulin Ratio 0.703 Test 09/17/20 04:22 09/17/20 05:51 09/17/20 06:25 09/17/20 09:10 Segmented Neutrophils 96 % Lymphocytes 1 % Monocytes 3 % Platelet Estimate ADEQUATE Platelet Morphology NORMAL Bedside Glucose 244 Blood Gas Sample Site ARTERIAL LINE Blood Gas pH 7.303 Blood Gas PCO2 45.2 mmHg Blood Gas PO2 61.0 mmHg Blood Gas HCO3 21.9 mmol/L Blood Gas Base Excess -4.4 mmol/L Abdi Test N/A Arterial Blood Oxygen Saturation 89.1 % Deoxyhemoglobin 10.8 % Carboxyhemoglobin 0.3 % Methemoglobin 0.3 % Total Hemoglobin 12.6 % Total Oxygen Concentration 15.7 % Blood Gas Temperature 37 Oxygen Delivery Method (LAB) VENT Blood Gas Vent Mode AC Blood Gas Vent Rate 25 FiO2 90 % Blood Gas Tidal Volume 400 ML Blood Gas PEEP 10 CMH2O Total Carbon Dioxide 23.3 mmol/L Ammonia 36 umol/L Test 09/17/20 10:45 09/17/20 16:08 09/17/20 16:41 09/17/20 20:00 Bedside Glucose 218 186 175 Sodium Level 138 mmol/L Potassium Level 5.0 mmol/L Chloride Level 106.0 mmol/L Carbon Dioxide Level 24.6 mmol/L Glucose Level 209 mg/dL Blood Urea Nitrogen 62 mg/dL Creatinine 1.29 mg/dL Calcium Level 7.1 mg/dL Anion Gap 12.4 Estimated GFR () 67.8 Est GFR (CKD-EPI)(Non-Afr Polish) 56.1 BUN/Creatinine Ratio 48.0 Test 09/17/20 23:51 09/18/20 04:14 09/18/20 05:38 09/18/20 07:47 Bedside Glucose 135 173 White Blood Count 20.4 10^3/uL Red Blood Count 4.32 10^6/uL Hemoglobin 12.5 g/dL Hematocrit 38.3 % Mean Corpuscular Volume 88.7 fL Mean Corpuscular Hemoglobin 28.9 pg Mean Corpuscular Hemoglobin Concent 32.6 g/dL Red Cell Distribution Width 13.2 % Platelet Count 202 10^3/uL Mean Platelet Volume 10.0 fL Neutrophils (%) (Auto) 86.3 % Lymphocytes (%) (Auto) 4.3 % Monocytes (%) (Auto) 5.5 % Neutrophils # (Auto) 17.6 10^3/uL Lymphocytes # (Auto) 0.87 10^3/uL1 Monocytes # (Auto) 1.1 10^3/uL Absolute Immature Granulocyte (auto 0.74 10^3 u/L Absolute Eosinophils (auto) 0.1 10^3/uL Immature Granulocytes % 3.60 % Eosinophils % 0.3 % Basophils % 0.0 % Basophils # 0.0 10^3/uL Sodium Level 141 mmol/L Potassium Level 4.4 mmol/L Chloride Level 107.0 mmol/L Carbon Dioxide Level 25.2 mmol/L Anion Gap 13.2 Blood Urea Nitrogen 62 mg/dL Creatinine 1.21 mg/dL Estimated GFR () 73.1 Est GFR (CKD-EPI)(Non-Afr Polish) 60.4 BUN/Creatinine Ratio 51.0 Glucose Level 129 mg/dL Calcium Level 7.0 mg/dL Total Bilirubin 0.3 mg/dL Aspartate Amino Transf (AST/SGOT) 20 U/L Alanine Aminotransferase (ALT/SGPT) 24 U/L Alkaline Phosphatase 72 U/L Total Protein 4.9 g/dL Albumin 1.8 g/dL Globulin 3.1 Albumin/Globulin Ratio 0.580 Blood Gas Sample Site SLEETMUTE Blood Gas pH 7.340 Blood Gas PCO2 47.4 mmHg Blood Gas PO2 76.1 mmHg Blood Gas HCO3 25.0 mmol/L Blood Gas Base Excess -1.1 mmol/L Abdi Test N/A Arterial Blood Oxygen Saturation 94.9 % Deoxyhemoglobin 5.1 % Carboxyhemoglobin 0.5 % Methemoglobin 0.4 % Total Hemoglobin 12.9 % Total Oxygen Concentration 17.1 % Blood Gas Temperature 37 Oxygen Delivery Method (LAB) VENT Blood Gas Vent Mode ACVC Blood Gas Vent Rate 25 FiO2 80 % Blood Gas Tidal Volume 400 ML Blood Gas PEEP 12 CMH2O Total Carbon Dioxide 26.5 mmol/L Test 09/18/20 11:26 09/18/20 18:01 09/18/20 20:17 09/18/20 23:51 Bedside Glucose 158 110 76 71 Test 09/19/20 04:30 09/19/20 05:19 09/19/20 05:21 09/19/20 05:25 White Blood Count 18.2 10^3/uL Red Blood Count 4.22 10^6/uL Hemoglobin 12.5 g/dL Hematocrit 36.8 % Mean Corpuscular Volume 87.2 fL Mean Corpuscular Hemoglobin 29.6 pg Mean Corpuscular Hemoglobin Concent 34.0 g/dL Red Cell Distribution Width 13.2 % Platelet Count 137 10^3/uL Mean Platelet Volume 10.4 fL Neutrophils (%) (Auto) 88.7 % Lymphocytes (%) (Auto) 4.6 % Monocytes (%) (Auto) 2.9 % Neutrophils # (Auto) 16.1 10^3/uL Lymphocytes # (Auto) 0.83 10^3/uL1 Monocytes # (Auto) 0.5 10^3/uL Absolute Immature Granulocyte (auto 0.38 10^3 u/L Absolute Eosinophils (auto) 0.3 10^3/uL Immature Granulocytes % 2.10 % Eosinophils % 1.7 % Basophils % 0.0 % Basophils # 0.0 10^3/uL D-Dimer 1.97 mg/L Sodium Level 140 mmol/L Potassium Level 4.1 mmol/L Chloride Level 106.0 mmol/L Carbon Dioxide Level 30.9 mmol/L Anion Gap 7.2 Blood Urea Nitrogen 40 mg/dL Creatinine 0.64 mg/dL Estimated GFR () 152.3 Est GFR (CKD-EPI)(Non-Afr Polish) 125.9 BUN/Creatinine Ratio 62.0 Glucose Level 121 mg/dL Calcium Level 7.4 mg/dL Phosphorus Level 3.0 mg/dL Magnesium Level 2.5 mg/dL Ferritin 1809 ng/mL Total Bilirubin 0.5 mg/dL Aspartate Amino Transf (AST/SGOT) 28 U/L Alanine Aminotransferase (ALT/SGPT) 32 U/L Alkaline Phosphatase 67 U/L Lactate Dehydrogenase 213 U/L Total Creatine Kinase 20 U/L C-Reactive Protein 18.69 mg/dL Total Protein 5.0 g/dL Albumin 1.5 g/dL Globulin 3.5 Albumin/Globulin Ratio 0.428 Triglycerides Level 91 mg/dL Procalcitonin 1.44 ng/mL Bedside Glucose 201 68 63 Test 09/19/20 07:31 09/19/20 11:30 09/19/20 16:33 09/20/20 00:03 Blood Gas Sample Site SLEETMUTE Blood Gas pH 7.440 Blood Gas PCO2 39.8 mmHg Blood Gas PO2 65.1 mmHg Blood Gas HCO3 26.4 mmol/L Blood Gas Base Excess 2.2 mmol/L Abdi Test N/A Arterial Blood Oxygen Saturation 93.0 % Deoxyhemoglobin 6.9 % Carboxyhemoglobin 0.9 % Methemoglobin 0.4 % Total Hemoglobin 13.1 % Total Oxygen Concentration 16.9 % Blood Gas Temperature 37 Oxygen Delivery Method (LAB) VENT Blood Gas Vent Mode ACVC Blood Gas Vent Rate 30 FiO2 70 % Blood Gas Tidal Volume 400 ML Blood Gas PEEP 10 CMH2O Total Carbon Dioxide 27.6 mmol/L Bedside Glucose 162 165 266 Test 09/20/20 04:13 09/20/20 05:58 09/20/20 07:30 09/20/20 11:38 White Blood Count 16.6 10^3/uL Red Blood Count 4.21 10^6/uL Hemoglobin 12.0 g/dL Hematocrit 37.1 % Mean Corpuscular Volume 88.1 fL Mean Corpuscular Hemoglobin 28.5 pg Mean Corpuscular Hemoglobin Concent 32.3 g/dL Red Cell Distribution Width 13.3 % Platelet Count 127 10^3/uL Mean Platelet Volume 11.0 fL Neutrophils (%) (Auto) 90.4 % Lymphocytes (%) (Auto) 2.8 % Monocytes (%) (Auto) 3.1 % Neutrophils # (Auto) 15.0 10^3/uL Lymphocytes # (Auto) 0.47 10^3/uL1 Monocytes # (Auto) 0.5 10^3/uL Absolute Immature Granulocyte (auto 0.28 10^3 u/L Absolute Eosinophils (auto) 0.3 10^3/uL Immature Granulocytes % 1.70 % Eosinophils % 1.9 % Basophils % 0.1 % Basophils # 0.0 10^3/uL Sodium Level 140 mmol/L Potassium Level 4.1 mmol/L Chloride Level 106.0 mmol/L Carbon Dioxide Level 29.6 mmol/L Anion Gap 8.5 Blood Urea Nitrogen 24 mg/dL Creatinine 0.58 mg/dL Estimated GFR () 170.7 Est GFR (CKD-EPI)(Non-Afr Polish) 141.1 BUN/Creatinine Ratio 41.0 Glucose Level 110 mg/dL Calcium Level 7.3 mg/dL Total Bilirubin 0.7 mg/dL Aspartate Amino Transf (AST/SGOT) 27 U/L Alanine Aminotransferase (ALT/SGPT) 28 U/L Alkaline Phosphatase 70 U/L Total Protein 4.9 g/dL Albumin 1.4 g/dL Globulin 3.5 Albumin/Globulin Ratio 0.400 Bedside Glucose 72 182 Blood Gas Sample Site ART LINE Blood Gas pH 7.380 Blood Gas PCO2 42.9 mmHg Blood Gas PO2 64.1 mmHg Blood Gas HCO3 24.8 mmol/L Blood Gas Base Excess -0.4 mmol/L Abdi Test N/A Arterial Blood Oxygen Saturation 92.2 % Deoxyhemoglobin 7.8 % Carboxyhemoglobin 0.1 % Methemoglobin 0.3 % Total Hemoglobin 12.5 % Total Oxygen Concentration 16.2 % Blood Gas Temperature 37.0 Oxygen Delivery Method (LAB) VENT Blood Gas Vent Mode ACVC Blood Gas Vent Rate 28 FiO2 70 % Blood Gas Tidal Volume 400 ML Blood Gas PEEP 10 CMH2O Total Carbon Dioxide 26.1 mmol/L Test 09/20/20 16:35 09/20/20 23:51 09/21/20 00:06 09/21/20 04:09 Bedside Glucose 142 349 121 White Blood Count 12.7 10^3/uL Red Blood Count 3.86 10^6/uL Hemoglobin 11.4 g/dL Hematocrit 34.2 % Mean Corpuscular Volume 88.6 fL Mean Corpuscular Hemoglobin 29.5 pg Mean Corpuscular Hemoglobin Concent 33.3 g/dL Red Cell Distribution Width 13.3 % Platelet Count 112 10^3/uL Mean Platelet Volume 10.7 fL Neutrophils (%) (Auto) 87.8 % Lymphocytes (%) (Auto) 3.2 % Monocytes (%) (Auto) 5.2 % Neutrophils # (Auto) 11.2 10^3/uL Lymphocytes # (Auto) 0.41 10^3/uL1 Monocytes # (Auto) 0.7 10^3/uL Absolute Immature Granulocyte (auto 0.17 10^3 u/L Absolute Eosinophils (auto) 0.3 10^3/uL Immature Granulocytes % 1.30 % Eosinophils % 2.4 % Basophils % 0.1 % Basophils # 0.0 10^3/uL Sodium Level 140 mmol/L Potassium Level 3.9 mmol/L Chloride Level 105.0 mmol/L Carbon Dioxide Level 33.2 mmol/L Anion Gap 5.7 Blood Urea Nitrogen 18 mg/dL Creatinine 0.75 mg/dL Estimated GFR () 126.9 Est GFR (CKD-EPI)(Non-Afr Polish) 104.8 BUN/Creatinine Ratio 24.0 Glucose Level 135 mg/dL Calcium Level 7.1 mg/dL Phosphorus Level 3.0 mg/dL Magnesium Level 2.4 mg/dL Total Bilirubin 0.8 mg/dL Aspartate Amino Transf (AST/SGOT) 41 U/L Alanine Aminotransferase (ALT/SGPT) 32 U/L Alkaline Phosphatase 83 U/L Total Protein 5.0 g/dL Albumin 1.2 g/dL Globulin 3.8 Albumin/Globulin Ratio 0.315 Test 09/21/20 06:03 09/21/20 07:28 09/21/20 11:20 09/21/20 17:17 Bedside Glucose 103 169 186 Blood Gas Sample Site SLEETMUTE Blood Gas pH 7.407 Blood Gas PCO2 51.4 mmHg Blood Gas PO2 85.8 mmHg Blood Gas HCO3 31.6 mmol/L Blood Gas Base Excess 5.9 mmol/L Abdi Test N/A Arterial Blood Oxygen Saturation 96.1 % Deoxyhemoglobin 3.9 % Carboxyhemoglobin 1.1 % Methemoglobin 0.1 % Total Hemoglobin 11.7 % Total Oxygen Concentration 15.7 % Blood Gas Temperature 37 Oxygen Delivery Method (LAB) VENT Blood Gas Vent Mode ACVC+ Blood Gas Vent Rate 26 FiO2 70 % Blood Gas Tidal Volume 400 ML Blood Gas PEEP 10 CMH2O Total Carbon Dioxide 33.2 mmol/L Test 09/21/20 21:14 09/22/20 00:35 09/22/20 03:56 09/22/20 04:21 Bedside Glucose 137 149 White Blood Count 8.7 10^3/uL Red Blood Count 3.46 10^6/uL Hemoglobin 10.1 g/dL Hematocrit 31.0 % Mean Corpuscular Volume 89.6 fL Mean Corpuscular Hemoglobin 29.2 pg Mean Corpuscular Hemoglobin Concent 32.6 g/dL Red Cell Distribution Width 13.4 % Platelet Count 116 10^3/uL Mean Platelet Volume 10.7 fL Neutrophils (%) (Auto) 82.9 % Lymphocytes (%) (Auto) 6.6 % Monocytes (%) (Auto) 5.9 % Neutrophils # (Auto) 7.2 10^3/uL Lymphocytes # (Auto) 0.58 10^3/uL1 Monocytes # (Auto) 0.5 10^3/uL Absolute Immature Granulocyte (auto 0.13 10^3 u/L Absolute Eosinophils (auto) 0.3 10^3/uL Immature Granulocytes % 1.50 % Eosinophils % 3.0 % Basophils % 0.1 % Basophils # 0.0 10^3/uL Sodium Level 140 mmol/L Potassium Level 3.8 mmol/L Chloride Level 103.0 mmol/L Carbon Dioxide Level 34.8 mmol/L Anion Gap 6.0 Blood Urea Nitrogen 20 mg/dL Creatinine 0.72 mg/dL Estimated GFR () 133.0 Est GFR (CKD-EPI)(Non-Afr Polish) 109.9 BUN/Creatinine Ratio 27.0 Glucose Level 203 mg/dL Calcium Level 7.6 mg/dL Phosphorus Level 2.9 mg/dL Magnesium Level 2.1 mg/dL Total Bilirubin 0.9 mg/dL Aspartate Amino Transf (AST/SGOT) 30 U/L Alanine Aminotransferase (ALT/SGPT) 32 U/L Alkaline Phosphatase 125 U/L Total Protein 4.8 g/dL Albumin 1.4 g/dL Globulin 3.4 Albumin/Globulin Ratio 0.411 Segmented Neutrophils 82 % Lymphocytes 4 % Monocytes 10 % Absolute Eosinophils (Manual) 4 % Platelet Estimate SLIGHTLY DECREASED Platelet Morphology NORMAL Test 09/22/20 05:36 09/22/20 07:42 09/22/20 12:27 09/22/20 17:10 Bedside Glucose 157 140 200 Blood Gas Sample Site SLEETMUTE Blood Gas pH 7.410 Blood Gas PCO2 48.0 mmHg Blood Gas PO2 66.2 mmHg Blood Gas HCO3 29.7 mmol/L Blood Gas Base Excess 4.3 mmol/L Abdi Test N/A Arterial Blood Oxygen Saturation 92.9 % Deoxyhemoglobin 7.1 % Carboxyhemoglobin 0.3 % Methemoglobin 0.3 % Total Hemoglobin 12.0 % Total Oxygen Concentration 15.6 % Blood Gas Temperature 37 Oxygen Delivery Method (LAB) VENT Blood Gas Vent Mode ACVC Blood Gas Vent Rate 26 FiO2 70 % Blood Gas Tidal Volume 400 ML Blood Gas PEEP 10 CMH2O Total Carbon Dioxide 31.2 mmol/L Test 09/22/20 20:34 09/23/20 00:00 09/23/20 04:30 09/23/20 04:40 Bedside Glucose 157 175 Urine Collection Type VOID Urine Color YELLOW Urine Appearance CLEAR Urine Bilirubin NEGATIVE MG/DL Urine Ketones NEGATIVE Urine Specific [place] 1.015 Urine pH 8.5 Urine Protein 30 mg/dL Urine Urobilinogen >=8.0 Urine Nitrate NEGATIVE Urine Leukocyte Esterase NEGATIVE Urine Blood TRACE Urine RBC 2-5 RBC/HPF Urine WBC 0-2 WBC/HPF Urine Bacteria RARE Urine Glucose NEGATIVE White Blood Count 10.6 10^3/uL Red Blood Count 3.49 10^6/uL Hemoglobin 10.1 g/dL Hematocrit 31.5 % Mean Corpuscular Volume 90.3 fL Mean Corpuscular Hemoglobin 28.9 pg Mean Corpuscular Hemoglobin Concent 32.1 g/dL Red Cell Distribution Width 13.3 % Platelet Count 132 10^3/uL Mean Platelet Volume 10.5 fL Neutrophils (%) (Auto) 81.1 % Lymphocytes (%) (Auto) 7.6 % Monocytes (%) (Auto) 5.9 % Neutrophils # (Auto) 8.6 10^3/uL Lymphocytes # (Auto) 0.80 10^3/uL1 Monocytes # (Auto) 0.6 10^3/uL Absolute Immature Granulocyte (auto 0.21 10^3 u/L Absolute Eosinophils (auto) 0.4 10^3/uL Immature Granulocytes % 2.00 % Eosinophils % 3.3 % Basophils % 0.1 % Basophils # 0.0 10^3/uL Sodium Level 141 mmol/L Potassium Level 3.9 mmol/L Chloride Level 100.0 mmol/L Carbon Dioxide Level 38.3 mmol/L Anion Gap 6.6 Blood Urea Nitrogen 18 mg/dL Creatinine 0.84 mg/dL Estimated GFR () 111.3 Est GFR (CKD-EPI)(Non-Afr Polish) 92.0 BUN/Creatinine Ratio 21.0 Glucose Level 130 mg/dL Calcium Level 8.2 mg/dL Phosphorus Level 2.8 mg/dL Magnesium Level 2.3 mg/dL Total Bilirubin 0.7 mg/dL Aspartate Amino Transf (AST/SGOT) 32 U/L Alanine Aminotransferase (ALT/SGPT) 33 U/L Alkaline Phosphatase 134 U/L Total Protein 5.8 g/dL Albumin 2.5 g/dL Globulin 3.3 Albumin/Globulin Ratio 0.757 Test 09/23/20 06:27 09/23/20 07:25 09/23/20 10:02 09/23/20 13:30 Bedside Glucose 154 88 166 Blood Gas Sample Site SLEETMUTE Blood Gas pH 7.421 Blood Gas PCO2 57.2 mmHg Blood Gas PO2 71.7 mmHg Blood Gas HCO3 36.4 mmol/L Blood Gas Base Excess 9.8 mmol/L Abdi Test N/A Arterial Blood Oxygen Saturation 93.6 % Deoxyhemoglobin 6.3 % Carboxyhemoglobin 0.9 % Methemoglobin 0.4 % Total Hemoglobin 13.8 % Total Oxygen Concentration 17.9 % Blood Gas Temperature 37 Oxygen Delivery Method (LAB) VENT Blood Gas Vent Mode ACVC+ Blood Gas Vent Rate 26 FiO2 70 % Blood Gas Tidal Volume 400 ML Blood Gas PEEP 10 CMH2O Total Carbon Dioxide 38.1 mmol/L Test 09/23/20 17:15 09/23/20 21:49 09/23/20 23:49 09/24/20 03:46 Bedside Glucose 86 181 153 White Blood Count 8.3 10^3/uL Red Blood Count 3.40 10^6/uL Hemoglobin 10.0 g/dL Hematocrit 30.6 % Mean Corpuscular Volume 90.0 fL Mean Corpuscular Hemoglobin 29.4 pg Mean Corpuscular Hemoglobin Concent 32.7 g/dL Red Cell Distribution Width 13.6 % Platelet Count 145 10^3/uL Mean Platelet Volume 10.9 fL Neutrophils (%) (Auto) 71.0 % Lymphocytes (%) (Auto) 14.0 % Monocytes (%) (Auto) 5.7 % Neutrophils # (Auto) 5.9 10^3/uL Lymphocytes # (Auto) 1.16 10^3/uL1 Monocytes # (Auto) 0.5 10^3/uL Absolute Immature Granulocyte (auto 0.31 10^3 u/L Absolute Eosinophils (auto) 0.4 10^3/uL Immature Granulocytes % 3.70 % Eosinophils % 5.2 % Basophils % 0.4 % Basophils # 0.0 10^3/uL D-Dimer 5.22 mg/L Sodium Level 142 mmol/L Potassium Level 3.6 mmol/L Chloride Level 102.0 mmol/L Carbon Dioxide Level 38.9 mmol/L Anion Gap 4.7 Blood Urea Nitrogen 16 mg/dL Creatinine 0.72 mg/dL Estimated GFR () 133.0 Est GFR (CKD-EPI)(Non-Afr Polish) 109.9 BUN/Creatinine Ratio 22.0 Glucose Level 93 mg/dL Calcium Level 8.2 mg/dL Phosphorus Level 3.7 mg/dL Magnesium Level 2.2 mg/dL Ferritin 644 ng/mL Total Bilirubin 0.5 mg/dL Aspartate Amino Transf (AST/SGOT) 28 U/L Alanine Aminotransferase (ALT/SGPT) 33 U/L Alkaline Phosphatase 128 U/L Lactate Dehydrogenase 195 U/L Total Creatine Kinase 49 U/L C-Reactive Protein 15.29 mg/dL Total Protein 5.6 g/dL Albumin 2.0 g/dL Globulin 3.6 Albumin/Globulin Ratio 0.555 Procalcitonin 0.83 ng/mL Test 09/24/20 06:26 09/24/20 09:19 09/24/20 10:11 09/24/20 13:57 Bedside Glucose 102 76 127 Blood Gas Sample Site ART LINE Blood Gas pH 7.432 Blood Gas PCO2 61.8 mmHg Blood Gas PO2 67.0 mmHg Blood Gas HCO3 40.3 mmol/L Blood Gas Base Excess 13.6 mmol/L Abdi Test N/A Arterial Blood Oxygen Saturation 92.6 % Deoxyhemoglobin 7.3 % Carboxyhemoglobin 0.4 % Methemoglobin 0.4 % Total Hemoglobin 11.9 % Total Oxygen Concentration 15.4 % Oxygen Delivery Method (LAB) MV Blood Gas Vent Mode ACVC+ Blood Gas Vent Rate 26 FiO2 70 % Blood Gas Tidal Volume 400 ML Blood Gas PEEP 10.0 CMH2O Total Carbon Dioxide 42.2 mmol/L Test 09/24/20 18:07 09/24/20 23:49 09/25/20 04:00 09/25/20 05:45 Bedside Glucose 157 127 160 White Blood Count 9.6 10^3/uL Red Blood Count 3.75 10^6/uL Hemoglobin 10.8 g/dL Hematocrit 34.1 % Mean Corpuscular Volume 90.9 fL Mean Corpuscular Hemoglobin 28.8 pg Mean Corpuscular Hemoglobin Concent 31.7 g/dL Red Cell Distribution Width 13.7 % Platelet Count 171 10^3/uL Mean Platelet Volume 11.2 fL Neutrophils (%) (Auto) 67.5 % Lymphocytes (%) (Auto) 15.1 % Monocytes (%) (Auto) 4.0 % Neutrophils # (Auto) 6.5 10^3/uL Lymphocytes # (Auto) 1.45 10^3/uL1 Monocytes # (Auto) 0.4 10^3/uL Absolute Immature Granulocyte (auto 0.58 10^3 u/L Absolute Eosinophils (auto) 0.7 10^3/uL Immature Granulocytes % 6.10 % Eosinophils % 7.0 % Basophils % 0.3 % Basophils # 0.0 10^3/uL Sodium Level 141 mmol/L Potassium Level 4.4 mmol/L Chloride Level 101.0 mmol/L Carbon Dioxide Level 37.2 mmol/L Anion Gap 7.2 Blood Urea Nitrogen 20 mg/dL Creatinine 0.90 mg/dL Estimated GFR () 102.8 Est GFR (CKD-EPI)(Non-Afr Polish) 85.0 BUN/Creatinine Ratio 22.0 Glucose Level 149 mg/dL Calcium Level 8.6 mg/dL Phosphorus Level 5.6 mg/dL Magnesium Level 2.4 mg/dL Total Bilirubin 0.4 mg/dL Aspartate Amino Transf (AST/SGOT) 28 U/L Alanine Aminotransferase (ALT/SGPT) 31 U/L Alkaline Phosphatase 135 U/L Total Protein 6.0 g/dL Albumin 2.0 g/dL Globulin 4.0 Albumin/Globulin Ratio 0.500 Test 09/25/20 07:42 09/25/20 11:30 09/25/20 17:53 09/26/20 00:57 Blood Gas Sample Site SLEETMUTE Blood Gas pH 7.417 Blood Gas PCO2 52.9 mmHg Blood Gas PO2 77.6 mmHg Blood Gas HCO3 33.3 mmol/L Blood Gas Base Excess 7.3 mmol/L Abdi Test N/A Arterial Blood Oxygen Saturation 95.4 % Deoxyhemoglobin 4.6 % Carboxyhemoglobin 0.6 % Methemoglobin 0.3 % Total Hemoglobin 13.0 % Total Oxygen Concentration 17.3 % Blood Gas Temperature 37 Oxygen Delivery Method (LAB) VENT Blood Gas Vent Mode ACVC Blood Gas Vent Rate 26 FiO2 85 % Blood Gas Tidal Volume 400 ML Blood Gas PEEP 10 CMH2O Total Carbon Dioxide 34.9 mmol/L Bedside Glucose 171 99 201 Test 09/26/20 04:10 09/26/20 04:45 09/26/20 06:44 09/26/20 07:51 White Blood Count 9.2 10^3/uL Red Blood Count 3.64 10^6/uL Hemoglobin 10.6 g/dL Hematocrit 32.7 % Mean Corpuscular Volume 89.8 fL Mean Corpuscular Hemoglobin 29.1 pg Mean Corpuscular Hemoglobin Concent 32.4 g/dL Red Cell Distribution Width 13.6 % Platelet Count 192 10^3/uL Mean Platelet Volume 10.7 fL Sodium Level 139 mmol/L Potassium Level 4.5 mmol/L Chloride Level 101.0 mmol/L Carbon Dioxide Level 34.9 mmol/L Anion Gap 7.6 Blood Urea Nitrogen 18 mg/dL Creatinine 0.85 mg/dL Estimated GFR () 109.8 Est GFR (CKD-EPI)(Non-Afr Polish) 90.7 BUN/Creatinine Ratio 21.0 Glucose Level 152 mg/dL Calcium Level 9.0 mg/dL Phosphorus Level 4.4 mg/dL Total Bilirubin 0.3 mg/dL Aspartate Amino Transf (AST/SGOT) 31 U/L Alanine Aminotransferase (ALT/SGPT) 26 U/L Alkaline Phosphatase 139 U/L Total Protein 6.2 g/dL Albumin 2.0 g/dL Globulin 4.2 Albumin/Globulin Ratio 0.476 Magnesium Level 2.4 mg/dL Bedside Glucose 156 Blood Gas Sample Site ART LINE Blood Gas pH 7.424 Blood Gas PCO2 53.4 mmHg Blood Gas PO2 73.1 mmHg Blood Gas HCO3 34.2 mmol/L Blood Gas Base Excess 8.3 mmol/L Abdi Test N/A Arterial Blood Oxygen Saturation 93.9 % Deoxyhemoglobin 6.0 % Carboxyhemoglobin 0.8 % Methemoglobin 0.4 % Total Hemoglobin 12.3 % Total Oxygen Concentration 16.1 % Oxygen Delivery Method (LAB) MV Blood Gas Vent Mode ACVC+ Blood Gas Vent Rate 26 FiO2 70 % Blood Gas Tidal Volume 400 ML Blood Gas PEEP 10.0 CMH2O Total Carbon Dioxide 35.8 mmol/L Test 09/26/20 12:07 09/26/20 17:51 09/27/20 00:28 09/27/20 04:08 Bedside Glucose 155 144 219 White Blood Count 10.7 10^3/uL Red Blood Count 3.75 10^6/uL Hemoglobin 10.9 g/dL Hematocrit 33.5 % Mean Corpuscular Volume 89.3 fL Mean Corpuscular Hemoglobin 29.1 pg Mean Corpuscular Hemoglobin Concent 32.5 g/dL Red Cell Distribution Width 13.5 % Platelet Count 232 10^3/uL Mean Platelet Volume 10.5 fL Sodium Level 136 mmol/L Potassium Level 4.7 mmol/L Chloride Level 98.0 mmol/L Carbon Dioxide Level 34.8 mmol/L Anion Gap 7.9 Blood Urea Nitrogen 19 mg/dL Creatinine 0.78 mg/dL Estimated GFR () 121.3 Est GFR (CKD-EPI)(Non-Afr Polish) 100.2 BUN/Creatinine Ratio 24.0 Glucose Level 154 mg/dL Calcium Level 8.7 mg/dL Phosphorus Level 4.2 mg/dL Magnesium Level 2.3 mg/dL Total Bilirubin 0.3 mg/dL Aspartate Amino Transf (AST/SGOT) 30 U/L Alanine Aminotransferase (ALT/SGPT) 23 U/L Alkaline Phosphatase 143 U/L Total Protein 6.7 g/dL Albumin 2.1 g/dL Globulin 4.6 Albumin/Globulin Ratio 0.456 Test 09/27/20 05:52 09/27/20 06:30 09/27/20 07:24 09/27/20 11:55 Bedside Glucose 187 181 Urine Collection Type UNKNOWN Urine Color YELLOW Urine Appearance CLEAR Urine Bilirubin NEGATIVE MG/DL Urine Ketones NEGATIVE Urine Specific [place] 1.010 Urine pH 6.5 Urine Protein TRACE Urine Urobilinogen 2.0 Urine Nitrate NEGATIVE Urine Leukocyte Esterase NEGATIVE Urine Blood NEGATIVE Urine RBC 5-10 RBC/HPF Urine WBC 5-10 WBC/HPF Urine Squamous Epithelial Cells RARE #/HPF Urine Bacteria FEW Urine Glucose NORMAL Blood Gas Sample Site SLEETMUTE Blood Gas pH 7.396 Blood Gas PCO2 47.5 mmHg Blood Gas PO2 81.3 mmHg Blood Gas HCO3 28.5 mmol/L Blood Gas Base Excess 3.0 mmol/L Abdi Test N/A Arterial Blood Oxygen Saturation 95.2 % Deoxyhemoglobin 4.7 % Carboxyhemoglobin 0.8 % Methemoglobin 0.4 % Total Hemoglobin 11.9 % Total Oxygen Concentration 15.8 % Blood Gas Temperature 37 Oxygen Delivery Method (LAB) VENT Blood Gas Vent Mode ACVC Blood Gas Vent Rate 24 FiO2 70 % Blood Gas Tidal Volume 400 ML Blood Gas PEEP 10 CMH2O Total Carbon Dioxide 30.0 mmol/L Test 09/27/20 17:30 09/28/20 00:12 09/28/20 04:05 09/28/20 06:06 Bedside Glucose 152 242 188 White Blood Count 16.2 10^3/uL Red Blood Count 3.76 10^6/uL Hemoglobin 11.0 g/dL Hematocrit 33.5 % Mean Corpuscular Volume 89.1 fL Mean Corpuscular Hemoglobin 29.3 pg Mean Corpuscular Hemoglobin Concent 32.8 g/dL Red Cell Distribution Width 13.7 % Platelet Count 245 10^3/uL Mean Platelet Volume 10.3 fL Neutrophils (%) (Auto) 81.8 % Lymphocytes (%) (Auto) 4.1 % Monocytes (%) (Auto) 4.0 % Neutrophils # (Auto) 13.3 10^3/uL Lymphocytes # (Auto) 0.66 10^3/uL1 Monocytes # (Auto) 0.6 10^3/uL Absolute Immature Granulocyte (auto 1.04 10^3 u/L Absolute Eosinophils (auto) 0.6 10^3/uL Immature Granulocytes % 6.40 % Eosinophils % 3.5 % Basophils % 0.2 % Basophils # 0.0 10^3/uL Sodium Level 135 mmol/L Potassium Level 4.6 mmol/L Chloride Level 100.0 mmol/L Carbon Dioxide Level 28.8 mmol/L Anion Gap 10.8 Blood Urea Nitrogen 19 mg/dL Creatinine 0.84 mg/dL Estimated GFR () 111.3 Est GFR (CKD-EPI)(Non-Afr Polish) 92.0 BUN/Creatinine Ratio 22.0 Glucose Level 166 mg/dL Calcium Level 8.9 mg/dL Total Bilirubin 0.5 mg/dL Aspartate Amino Transf (AST/SGOT) 33 U/L Alanine Aminotransferase (ALT/SGPT) 22 U/L Alkaline Phosphatase 134 U/L Total Protein 6.7 g/dL Albumin 2.0 g/dL Globulin 4.7 Albumin/Globulin Ratio 0.425 Test 09/28/20 06:16 09/28/20 07:22 09/28/20 11:45 Differential Total Cells Counted 100 #CELLS Segmented Neutrophils 78 % Band Neutrophils 5 % Lymphocytes 4 % Monocytes 5 % Absolute Eosinophils (Manual) 8 % Platelet Estimate ADEQUATE Platelet Morphology NORMAL Macrocytosis 1+ Blood Gas Sample Site SALOM[place] Blood Gas pH 7.411 Blood Gas PCO2 45.7 mmHg Blood Gas PO2 74.5 mmHg Blood Gas HCO3 28.4 mmol/L Blood Gas Base Excess 3.2 mmol/L Abdi Test N/A Arterial Blood Oxygen Saturation 94.6 % Deoxyhemoglobin 5.4 % Carboxyhemoglobin 0.3 % Methemoglobin 0.2 % Total Hemoglobin 11.2 % Total Oxygen Concentration 14.9 % Blood Gas Temperature 37 Oxygen Delivery Method (LAB) VENT Blood Gas Vent Mode ACVC+ Blood Gas Vent Rate 24 FiO2 70 % Blood Gas Tidal Volume 400 ML Blood Gas PEEP 10 CMH2O Total Carbon Dioxide 29.8 mmol/L Bedside Glucose 149 Current Medications Medications (Trade) Dose Ordered Sig/Adrianna Route PRN Reason Start Time Stop Time Status Last Admin Dose Admin Acetaminophen (Tylenol) 325 mg Q4H PRN PO PAIN 1 - 3 09/03/20 19:00 09/05/20 19:26 DC Morphine Sulfate (Morphine Sulfate) 2 mg Q4H PRN IV PAIN 4 - 6 09/03/20 19:00 09/04/20 19:28 DC Insulin Human Lispro (Humalog) 0-140 0 Units 141-200... ACHS SQ 09/03/20 21:00 09/13/20 19:43 DC 09/13/20 17:28 Dextrose 1,000 ml @ 100 mls/hr Q10H PRN IV HYPOGLYCEMIA 09/03/20 19:00 09/22/20 10:02 DC Dextrose (Dextrose 50%-Water Syringe) 25 ml STAT PRN IV HYPOGLYCEMIA 09/03/20 19:00 10/03/20 18:59 Glucagon (Glucagen) 1 mg STAT STAT IV 09/03/20 18:44 09/03/20 18:56 DC Heparin Sodium (Porcine) (Heparin) 5,000 unit Q8HR SQ 09/03/20 22:00 09/04/20 20:10 DC 09/04/20 14:00 Lisinopril (Zestril) 20 mg BID PO 09/03/20 21:00 09/14/20 11:07 DC 09/12/20 21:00 Azithromycin 500 mg/Sodium Chloride 250 ml @ 175 mls/hr Q24HRS IV 09/03/20 20:30 09/04/20 08:15 DC 09/03/20 21:11 Ceftriaxone Sodium 1000 mg/ Sodium Chloride 100 ml @ 100 mls/hr Q24HRS IV 09/03/20 19:30 09/04/20 08:15 DC 09/03/20 19:39 Sodium Chloride 1,000 ml @ 75 mls/hr [id number] IV 09/03/20 20:00 09/11/20 10:16 DC 09/11/20 01:20 Ceftriaxone Sodium (Rocephin) 1,000 mg STK-MED ONCE .ROUTE 09/03/20 19:35 09/03/20 19:35 DC Sodium Chloride 100 ml @ ud STK-MED ONCE IV 09/03/20 19:35 09/03/20 19:36 DC Zinc Sulfate (Zinc Sulfate) 220 mg DAILY PO 09/04/20 09:00 09/05/20 00:13 DC 09/04/20 08:22 Ascorbic Acid (Vitamin C) 500 mg BID PO 09/04/20 09:00 09/05/20 00:13 DC 09/04/20 20:22 Morphine Sulfate (Morphine Sulfate) 2 mg Q4H PRN IV PAIN 4 - 6 09/04/20 19:28 09/17/20 11:06 DC Enoxaparin Sodium (Lovenox) 75 mg BID SQ 09/04/20 20:30 09/05/20 11:39 DC 09/05/20 08:20 Azithromycin (Zithromax) 500 mg OT ONCE PO 09/05/20 00:00 09/05/20 02:22 DC 09/05/20 00:27 Ceftriaxone Sodium 2000 mg/ Sodium Chloride 100 ml @ 100 mls/hr Q24HRS IV 09/05/20 00:00 09/09/20 18:46 DC 09/08/20 23:59 Azithromycin (Zithromax) 250 mg DAILY PO 09/05/20 19:00 09/09/20 18:59 DC 09/09/20 08:31 Ceftriaxone Sodium (Rocephin) 1,000 mg STK-MED ONCE .ROUTE 09/05/20 00:25 09/05/20 00:26 DC Sodium Chloride 100 ml @ ud STK-MED ONCE IV 09/05/20 00:26 09/05/20 00:26 DC Enoxaparin Sodium (Lovenox) 40 mg DAILY SQ 09/06/20 09:00 09/09/20 18:47 DC 09/09/20 08:31 Ascorbic Acid (Vitamin C) 1,000 mg BID PO 09/05/20 21:00 10/05/20 20:59 09/28/20 09:00 Zinc Sulfate (Zinc Sulfate) 220 mg BID PO 09/05/20 21:00 10/05/20 20:59 09/28/20 09:00 Albuterol Sulfate (Ventolin Hfa) 2 inh RTQ4 IH 09/05/20 13:00 09/20/20 10:05 DC 09/20/20 08:30 Acetaminophen (Tylenol) 1,000 mg Q6H PRN PO PAIN 1 - 3 09/05/20 12:00 10/05/20 11:59 09/27/20 03:58 Enoxaparin Sodium (Lovenox) 40 mg STK-MED ONCE SQ 09/06/20 07:12 09/06/20 07:12 DC Remdesivir 200 mg/ Sodium Chloride 140 ml @ 120.69 mls/ hr OT STAT IV 09/07/20 18:45 09/07/20 19:54 DC 09/07/20 19:10 Remdesivir 100 mg/ Sodium Chloride 120 ml @ 111.111 mls/hr Q24HRS IV 09/08/20 19:00 09/13/20 07:12 DC 09/12/20 19:00 Potassium Chloride (Klor-Con 10) 40 meq OT PO 09/08/20 13:00 09/11/20 15:50 DC 09/09/20 04:56 Metoprolol Tartrate (Lopresser) 10 mg STAT STAT IVP 09/09/20 11:00 09/09/20 11:04 DC 09/09/20 11:34 Metoprolol Tartrate (Lopresser) 25 mg BID PO 09/09/20 21:00 09/14/20 11:02 DC 09/12/20 21:00 Enoxaparin Sodium (Lovenox) 80 mg BID SQ 09/09/20 19:00 09/11/20 15:51 DC 09/11/20 09:00 Sodium Chloride 250 ml @ ud STK-MED ONCE IV 09/10/20 12:50 09/10/20 12:51 DC Enoxaparin Sodium (Lovenox) 80 mg STK-MED ONCE SQ 09/10/20 21:17 09/10/20 21:17 DC Lorazepam (Ativan) 1 mg Q4HR PRN IV ANXIETY 09/11/20 00:30 09/18/20 08:58 DC 09/13/20 04:00 Enoxaparin Sodium (Lovenox) 80 mg BID SQ 09/11/20 21:00 09/13/20 15:41 DC 09/12/20 21:00 Methylprednisolone Acetate (Depo-Medrol) 40 mg Q8HR IM 09/11/20 22:00 09/11/20 18:19 DC Quetiapine Fumarate (Seroquel) 25 mg BID PO 09/12/20 21:00 09/13/20 15:41 DC 09/12/20 21:00 Quetiapine Fumarate (Seroquel) 25 mg BID PO 09/13/20 03:00 09/13/20 04:46 DC Dexmedetomidine HCl 400 mcg/ Sodium Chloride 100 ml @ 0 mls/hr IV 09/13/20 05:00 09/28/20 08:30 DC 09/14/20 09:26 Sodium Chloride 100 ml @ STK-MED ONCE IV 09/13/20 05:16 09/13/20 05:16 DC Hydralazine HCl (Apresoline) 5 mg STAT STAT IV 09/13/20 08:19 09/13/20 08:21 DC 09/13/20 08:30 Hydralazine HCl (Apresoline) 5 mg STAT STAT IV 09/13/20 09:43 09/13/20 10:03 DC 09/13/20 09:43 Sterile Water (Water) 1,000 ml STK-MED ONCE .ROUTE 09/13/20 11:31 09/13/20 11:31 DC Sodium Chloride 1,000 ml @ ud STK-MED ONCE .ROUTE 09/13/20 11:31 09/13/20 11:31 DC Propofol 100 ml @ ud STK-MED ONCE IV 09/13/20 11:46 09/13/20 11:47 DC Propofol (Diprivan) 1,000 mg STAT IV 09/13/20 13:00 10/13/20 12:59 09/28/20 12:22 Sodium Chloride 1,000 ml @ 0 mls/hr Q0M ONCE IV 09/13/20 11:45 09/13/20 13:21 DC 09/13/20 11:45 Fentanyl Citrate 2000 mcg/Sodium Chloride 200 ml @ 7.4 mls/hr IV 09/13/20 16:00 09/13/20 19:50 DC 09/13/20 16:17 Methylprednisolone Sodium Succinate (Solu-Medrol) 40 mg Q8HR IV 09/13/20 22:00 09/17/20 07:00 DC 09/17/20 06:00 Succinylcholine Chloride (Quelicin) 100 mg STK-MED ONCE IV 09/13/20 11:58 09/13/20 18:48 DC Propofol (Diprivan) 150 mg STK-MED ONCE IV 09/13/20 11:58 09/13/20 18:48 DC Furosemide (Lasix) 20 mg STAT STAT IV 09/13/20 19:07 09/13/20 19:47 DC 09/13/20 19:07 Enoxaparin Sodium (Lovenox) 70 mg BID SQ 09/13/20 21:00 10/13/20 20:59 09/28/20 09:00 Insulin Human Lispro (Humalog) 0-140 0 Units 141-200... Q6 SQ 09/14/20 00:00 10/16/22 20:59 09/28/20 11:56 Fentanyl Citrate 5000 mcg/Sodium Chloride 500 ml @ 11.4 mls/hr IV 09/13/20 20:00 10/13/20 19:59 09/28/20 12:23 Sodium Chloride 500 ml @ 500 mls/hr Q1H ONCE IV 09/13/20 21:00 09/13/20 21:59 DC 09/13/20 21:00 Sodium Chloride 500 ml @ ud STK-MED ONCE IV 09/13/20 20:34 09/13/20 20:34 DC Sodium Chloride 250 ml @ ud STK-MED ONCE IV 09/13/20 20:34 09/13/20 20:34 DC Norepinephrine Bitartrate (Levophed) 4 mg STK-MED ONCE .ROUTE 09/13/20 20:34 09/13/20 20:35 DC Norepinephrine Bitartrate 8 mg/ Sodium Chloride 250 ml @ 0 mls/hr PRN PRN IV HYPOTENSION 09/13/20 21:00 09/19/20 10:29 DC 09/18/20 13:20 Furosemide (Lasix) 40 mg STK-MED ONCE .ROUTE 09/13/20 21:19 09/13/20 21:19 DC Docusate Sodium (Colace) 100 mg BID PO 09/14/20 21:00 10/14/20 20:59 09/28/20 09:00 Ceftriaxone Sodium 1000 mg/ Sodium Chloride 100 ml @ 200 mls/hr Q24HRS IV 09/14/20 15:00 09/19/20 09:11 DC 09/18/20 15:09 Azithromycin 500 mg/Sodium Chloride 250 ml @ 175 mls/hr Q24HRS IV 09/14/20 16:00 09/17/20 15:59 DC 09/16/20 16:00 Sodium Chloride 1,000 ml @ 75 mls/hr [id number] IV 09/14/20 15:30 09/17/20 11:06 DC 09/16/20 17:28 Heparin Sodium/ Sodium Chloride 500 ml @ ud STK-MED ONCE IV 09/14/20 18:32 09/14/20 18:32 DC Vecuronium Claridge (Norcuron) 10 mg STK-MED ONCE .ROUTE 09/14/20 18:40 09/14/20 18:40 DC Sterile Water (Water) 1,000 ml STK-MED ONCE .ROUTE 09/15/20 00:38 09/15/20 00:39 DC Insulin Glargine (Lantus) 10 unit BID SQ 09/15/20 14:30 09/16/20 12:30 DC 09/16/20 08:28 Sterile Water (Water) 1,000 ml STK-MED ONCE .ROUTE 09/15/20 20:12 09/15/20 20:13 DC Vecuronium Claridge (Norcuron) 10 mg STAT ONCE IV 09/16/20 10:00 09/16/20 10:12 DC 09/16/20 11:00 Insulin Glargine (Lantus) 20 unit BID SQ 09/16/20 21:00 09/24/20 10:44 DC 09/23/20 21:45 Pantoprazole Sodium (Protonix Iv) 40 mg DAILY IV 09/17/20 09:00 10/17/20 08:59 09/28/20 09:00 Sterile Water (Water) 1,000 ml STK-MED ONCE .ROUTE 09/16/20 16:52 09/16/20 16:53 DC Furosemide (Lasix) 20 mg STAT ONCE IV 09/17/20 08:00 09/17/20 08:17 DC 09/17/20 08:00 Quetiapine Fumarate (Seroquel) 25 mg BID PO 09/17/20 09:30 10/17/20 09:29 09/28/20 09:00 Vecuronium Claridge (Norcuron) 10 mg Q2 PRN IV AGITATION 09/17/20 11:30 09/18/20 08:53 DC 09/17/20 15:00 Furosemide (Lasix) 40 mg DAILY IV 09/17/20 11:30 09/24/20 10:44 DC 09/24/20 09:00 Lactulose (Cephulac) 20 gm DAILY NG 09/18/20 09:00 09/18/20 08:56 DC Norepinephrine Bitartrate (Levophed) 4 mg STK-MED ONCE .ROUTE 09/17/20 16:16 09/17/20 16:17 DC Sodium Chloride 250 ml @ ud STK-MED ONCE IV 09/17/20 16:16 09/17/20 16:17 DC Sterile Water (Water) 1,000 ml STK-MED ONCE .ROUTE 09/17/20 18:20 09/17/20 18:21 DC Sodium Chloride 100 ml @ ud STK-MED ONCE IV 09/17/20 22:27 09/17/20 22:28 DC Fentanyl Citrate (Sublimaze) 50 mcg STK-MED ONCE .ROUTE 09/17/20 22:28 09/17/20 22:29 DC Vecuronium Claridge (Norcuron) 10 mg Q2 IV 09/18/20 09:00 09/20/20 10:04 DC 09/20/20 08:00 Lactulose (Cephulac) 20 gm DAILY NG 09/18/20 09:00 10/18/20 08:59 09/28/20 09:00 Vecuronium Claridge (Norcuron) 5 mg Q1HR PRN IV Additional Paralysis 09/18/20 09:00 10/18/20 08:59 09/21/20 17:19 Sterile Water (Water) 1,000 ml STK-MED ONCE .ROUTE 09/18/20 09:55 09/18/20 09:55 DC Heparin Sodium/ Dextrose 500 ml @ ud STK-MED ONCE IV 09/18/20 13:59 09/18/20 13:59 DC Cefepime HCl 2 gm/ Sodium Chloride 100 ml @ 100 mls/hr Q8H IV 09/19/20 09:00 09/20/20 10:04 DC 09/20/20 09:00 Norepinephrine Bitartrate 8 mg/ Sodium Chloride 250 ml @ 0 mls/hr TITRATE ONCE IV 09/19/20 11:00 09/19/20 11:01 DC 09/19/20 10:30 Norepinephrine Bitartrate 8 mg/ Sodium Chloride 250 ml @ 0 mls/hr TITRATE IV 09/19/20 12:00 10/19/20 11:59 09/23/20 14:20 Sterile Water (Water) 1,000 ml STK-MED ONCE .ROUTE 09/20/20 08:08 09/20/20 08:09 DC Vecuronium Claridge (Norcuron) 10 mg Q3H PRN IV vent/dsynchonry hypoxia 09/20/20 10:30 10/20/20 10:29 09/28/20 00:09 Midazolam HCl (Versed) 2 mg Q2H PRN IV SEDATION 09/20/20 10:30 10/20/20 10:29 UNV Albuterol Sulfate (Ventolin Hfa) 2 inh PRN PRN IH wheezing 09/20/20 10:30 10/20/20 10:29 09/22/20 08:30 Vasopressin 20 unit/Sodium Chloride 100 ml @ 0 mls/hr PRN ONCE IV 09/20/20 17:00 09/20/20 17:01 DC Furosemide (Lasix) 60 mg OT ONCE IV 09/21/20 15:00 09/21/20 15:13 DC Albumin Human (Buminate 25%) 100 ml OT ONCE IV 09/21/20 15:00 09/21/20 15:13 DC 09/21/20 15:00 Sterile Water (Water) 1,000 ml STK-MED ONCE .ROUTE 09/21/20 15:26 09/21/20 15:26 DC Albumin Human (Buminate 25%) 100 ml Q8H IV 09/22/20 10:00 09/23/20 09:59 DC 09/23/20 02:00 Sterile Water (Water) 1,000 ml STK-MED ONCE .ROUTE 09/22/20 17:13 09/22/20 17:14 DC Acetaminophen (Ofirmev) 1,000 mg Q8H PRN IV see dose instructions 09/23/20 04:30 10/23/20 04:29 09/28/20 10:04 Sodium Chloride 250 ml @ ud STK-MED ONCE IV 09/23/20 14:14 09/23/20 14:14 DC Norepinephrine Bitartrate (Levophed) 4 mg STK-MED ONCE .ROUTE 09/23/20 14:14 09/23/20 14:14 DC Potassium Chloride 100 ml @ 50 mls/hr OT IV 09/24/20 10:00 10/24/20 09:59 09/24/20 10:32 Furosemide (Lasix) 20 mg DAILY IV 09/25/20 09:00 10/25/20 08:59 09/28/20 09:00 Heparin Sodium/ Sodium Chloride 500 ml @ ud STK-MED ONCE IV 09/25/20 07:09 09/25/20 07:10 DC Sterile Water (Water) 1,000 ml STK-MED ONCE .ROUTE 09/25/20 08:59 09/25/20 08:59 DC Cefepime HCl 2 gm/ Sodium Chloride 100 ml @ 100 mls/hr BID IV 09/27/20 09:00 09/27/20 10:48 DC 09/27/20 09:00 Vancomycin HCl 1250 gm/Sodium Chloride 250 ml @ 175 mls/hr BID IV 09/27/20 10:00 09/27/20 19:21 DC 09/27/20 10:00 Cefepime HCl 2 gm/ Sodium Chloride 100 ml @ 100 mls/hr TID IV 09/27/20 15:00 09/27/20 11:00 DC Cefepime HCl 2 gm/ Sodium Chloride 100 ml @ 100 mls/hr Q8H IV 09/27/20 17:00 09/27/20 12:23 DC Cefepime HCl 2 gm/ Sodium Chloride 100 ml @ 100 mls/hr Q8H IV 09/27/20 17:00 10/27/20 16:59 09/28/20 11:30 Vancomycin HCl 1250 mg/Sodium Chloride 300 ml @ 100 mls/hr Q12H IV 09/27/20 21:00 09/27/20 19:31 DC Vancomycin HCl 1250 mg/Sodium Chloride 250 ml @ 175 mls/hr Q12H IV 09/27/20 21:00 10/27/20 20:59 09/28/20 09:00 Sterile Water (Water) 1,000 ml STK-MED ONCE .ROUTE 09/27/20 23:56 09/27/20 23:57 DC Sterile Water (Water) 1,000 ml STK-MED ONCE .ROUTE 09/28/20 00:05 09/28/20 00:06 DC Sterile Water (Water) 1,000 ml STK-MED ONCE .ROUTE 09/28/20 00:06 09/28/20 00:06 DC Sodium Chloride 250 ml @ 500 mls/hr Q30M PRN IV FEVER 09/28/20 01:00 09/28/20 03:00 DC 09/28/20 01:30 VTE VTE Risk Total Score: 2 VTE Risk Score VTE Risk: Score 0-1 = Low Risk (Aggressive mobilization; early ambulation; no VTE prophylaxis required) Score 2: Moderate Risk (Intermittent/Pneumatic Compression Device OR Lovenox/Heparin/Coumadin) Score 3-4: High Risk (Intermittent/Pneumatic Compression Device AND Lovenox/Heparin/Coumadin) Score > or =5: Highest Risk (Intermittent/Pneumatic Compression Device AND Lovenox/Heparin/Coumadin) Antico:Hep/LMWH/Coum/Xarelto: Yes Mechanical device ordered: Yes VTE VTE Present on Admission: No Currently receiving anticoagul: No VTE Risk Total Score: 2 Antico:Hep/LMWH/Coum/Xarelto: Yes Mechanical device ordered: Yes Assessment/Plan Assessment/Plan Plan #1 Neuro: The pt is intubated and sedated on prop, precedex and fentanyl. #2 CV: THe pt has been normotensive but will prn need levo to keep MAP >65. #3 Pulm: The pt is s/p tx with remdesivir lovenox and decadron. VEnt settings of 100% on 10 PEEP. The pt also has evidence of PNA with enterobacter on cefepime and vanco. WOujld treat 7 days. His o2 sat is worse likely in the setting of fever and dysynchrony. #4 GI: COnt tf #5 Renal: Monitor for renal failure, replete lytes, lasix PRN #6 ID: [id number] , pt with enterobacter PNA on appropriate tx. The pt continues to have persistent fevers and so may need to change antibiotics or lines. Enterobacter is a SPACE organism and can have ampc inducibility and ESBL production after cefepime exposure. WIll await further cultres. WOuld consult ID for additional guidance. #7 Endo: keep FS 150-180 #8 Heme: Tx plats >10k hgb >7 #9 PPx: lovenox and PPI I discussed pt with METAL DRILL PRESS OPERATOR and completed the video assessment with assistance from the METAL DRILL PRESS OPERATOR. I spent a total of greater than 60 minutes formulating critical care for this patient today. I saw this patient and completed a full visual exam via audio-visual HIPAA compliant technology. ALVARO HACKETT MD Sep 28, 2020 14:29
--- NOTE | 2020-09-28 15:06 | DIREP ---
PROCEDURE: CHEST 1 VIEW COMPARISON: [facility], CR, XRAY CHEST SINGLE VW, 09/21/2020, 11:23 AM. [facility], CR, XRAY CHEST SINGLE VW, 09/19/2020, 09:42 AM. [facility], CR, XRAY CHEST SINGLE VW, 09/17/2020, 06:23 AM. INDICATIONS: fever; intubated FINDINGS: LUNGS/PLEURA: Diffuse patchy peripheral airspace opacities. No effusion or pneumothorax. VASCULATURE: Normal. Unremarkable pulmonary vasculature. CARDIAC: Normal. No cardiac silhouette abnormality or cardiomegaly. MEDIASTINUM: Normal. No visible mass or adenopathy. BONES: Degenerative changes. OTHER: Endotracheal tube tip overlying the mid trachea. Enteric tube with tip off the inferior aspect of the image. Right arm PICC with tip overlying the mid SVC. CONCLUSION: 1. Patchy diffuse airspace opacities, consistent with multi lobar pneumonia to include from atypical organisms such as COVID-19. 2. Lines and tubes as above. Dictated by: Austin Morris M.D. on 09/23/2020 at 04:25 AM [facility]
--- NOTE | 2020-09-28 15:41 | DIREP ---
PROCEDURE:CHEST 1 VIEW COMPARISON:[facility], CR, XRAY CHEST SINGLE VW, 09/27/2020, 12:38 PM. [facility], CR, XRAY CHEST SINGLE VW, 09/24/2020, 07:51 AM. [facility], CR, XRAY CHEST SINGLE VW, 09/23/2020, 04:06 AM. INDICATIONS:COVID PNEUMONIA FINDINGS: LUNGS/PLEURA:Diffuse patchy airspace opacities. Mild interval improvement in aeration. No effusion or pneumothorax. VASCULATURE:Normal. Unremarkable pulmonary vasculature. CARDIAC:Normal. No cardiac silhouette abnormality or cardiomegaly. MEDIASTINUM:Normal. No visible mass or adenopathy. BONES:Degenerative changes. OTHER:Endotracheal tube with tip overlying the mid trachea. Enteric tube with tip off the inferior aspect of the image. Right arm PICC with tip overlying the mid SVC. CONCLUSION:Patchy diffuse airspace opacities, consistent with multi lobar pneumonia to include from atypical organisms such as COVID-19. Mild interval improvement. Dictated by: Austin Morris M.D. on 09/28/2020 at 06:45 AM
--- NOTE | 2020-09-28 17:24 | PRM.PN ---
Subjective Subjective Date: Sep 28, 2020 Time: 17:13 Subjective Patient did have fever overnight and decline in his respiratory status that was addressed with suctioning repositioning change in vent settings to increase PEEP back to 10, increase in FiO2 and reevaluation with chest x-ray. Will reevaluate antibiotic coverage and get ID consult given recurrent fever on broad spectrum antibiotics. Will utilize culture results as they become available for further guidance VTE VTE Risk Total Score: 2 VTE Risk Score VTE Risk: Score 0-1 = Low Risk (Aggressive mobilization; early ambulation; no VTE prophylaxis required) Score 2: Moderate Risk (Intermittent/Pneumatic Compression Device OR Lovenox/Heparin/Coumadin) Score 3-4: High Risk (Intermittent/Pneumatic Compression Device AND Lovenox/Heparin/Coumadin) Score > or =5: Highest Risk (Intermittent/Pneumatic Compression Device AND Lovenox/Heparin/Coumadin) Antico:Hep/LMWH/Coum/Xarelto: Yes Mechanical device ordered: Yes Review of Systems Constitutional: Weakness; No: Fever, Chills, Sweats, Malaise, Other Eyes: No: Pain, Vision change, Conjunctivae inflammation, Eyelid inflammation, Other, Redness ENT: No: Ear pain, Ear discharge, Nose pain, Nose discharge, Nose congestion, Mouth pain, Mouth swelling, Throat pain, Throat swelling, Other Respiratory: Shortness of breath Cardiovascular: No: Chest Pain, Palpitations, Orthopnea, Paroxysmal Noc. Dyspnea, Edema, Lt Headedness, Other Gastrointestinal: No: Nausea, Vomiting, Abdominal Pain, Diarrhea, Constipation, Melena, Hematochezia, Other Genitourinary: No Dysuria, No Frequency, No Incontinence, No Hematuria, No Retention, No Other Musculoskeletal: No: other, neck pain, shoulder pain, arm pain, back pain, hand pain, leg pain, foot pain Skin: No: Rash, Lesions, Jaundice, Bruising, Other Allergies: Coded Allergies: No Known Allergies (Unverified , 09/03/20) Scheduled Lisinopril (Lisinopril), 1 TAB PO BID, (Reported) Metformin Hcl (Metformin Hcl), 1,000 MG PO BID, (Reported) Objective Vitals and I/O Vital Sign - Last 24 Hours 09/28/20 09/28/20 09/28/20 09/28/20 08:00 08:00 08:00 08:00 Pulse 104 112 Resp 24 24 24 Pulse Ox 94 92 O2 Delivery Mechanical Ventilator Mechanical Ventilator FiO2 70 70 70 09/28/20 09/28/20 09/28/20 09/28/20 08:20 08:22 09:00 09:15 Temp 100.6 100.6 Pulse 108 106 110 113 Resp B/P (MAP) 141/78 (99) 186/61 (102) 178/65 (102) Pulse Ox 98 97 95 93 O2 Delivery Mechanical Ventilator FiO2 65 65 09/28/20 09/28/20 09/28/20 09/28/20 09:30 09:45 10:00 10:15 Temp 100.8 100.9 101.1 100.9 Pulse 116 111 113 108 Resp B/P (MAP) 204/70 (114) 145/55 (85) 118/58 (78) 89/43 (58) 121/49 (73) Pulse Ox 92 93 96 97 09/28/20 09/28/20 09/28/20 09/28/20 10:30 10:45 10:55 11:00 Temp 100.8 100.4 100.0 Pulse 105 101 100 98 Resp B/P (MAP) 82/47 (59) 94/45 (61) 98/53 (68) 80/41 (54) 113/50 (71) Pulse Ox 98 98 97 97 FiO2 70 09/28/20 09/28/20 09/28/20 09/28/20 11:15 11:30 11:45 12:00 Temp 99.7 99.3 99.1 99.0 Pulse 97 94 91 88 Resp B/P (MAP) 113/50 (71) 112/50 (70) 114/50 (71) 104/59 (74) 127/53 (77) Pulse Ox 98 97 99 98 09/28/20 09/28/20 09/28/20 09/28/20 12:00 12:00 12:00 12:15 Temp 98.6 Pulse 89 88 Resp B/P (MAP) 108/49 (68) Pulse Ox 99 99 O2 Delivery Mechanical Ventilator Mechanical Ventilator FiO2 70 70 09/28/20 09/28/20 09/28/20 09/28/20 12:30 12:45 13:00 13:15 Temp 98.2 98.1 98.1 98.1 Pulse 89 94 93 92 Resp B/P (MAP) 93/43 (60) 149/55 (86) 86/46 (59) 114/46 (68) 102/44 (63) Pulse Ox 99 97 99 99 09/28/20 09/28/20 09/28/20 09/28/20 13:30 13:45 14:00 14:15 Temp 98.2 98.1 98.1 98.1 Pulse 89 88 88 87 Resp B/P (MAP) 110/48 (68) 99/46 (63) 100/54 (69) 119/51 (73) 107/48 (67) Pulse Ox 99 99 100 99 09/28/20 09/28/20 09/28/20 09/28/20 14:30 14:36 14:45 15:00 Temp 98.1 97.9 98.1 Pulse 88 88 89 89 Resp B/P (MAP) 125/52 (76) 127/51 (76) 111/59 (76) 129/52 (77) Pulse Ox 99 98 98 98 FiO2 70 09/28/20 09/28/20 09/28/20 09/28/20 15:15 15:30 15:45 16:00 Temp 98.1 98.2 98.2 Pulse 88 92 92 94 Resp B/P (MAP) 133/54 (80) 136/53 (80) 133/53 (79) Pulse Ox 99 97 96 98 FiO2 70 09/28/20 09/28/20 09/28/20 09/28/20 16:00 16:00 16:00 16:15 Temp 98.8 Pulse 99 98 Resp B/P (MAP) 129/74 (92) 141/57 (85) 166/64 (98) Pulse Ox 93 96 O2 Delivery Mechanical Ventilator Mechanical Ventilator FiO2 70 09/28/20 16:30 Temp 98.8 Pulse 94 Resp 30 B/P (MAP) 120/52 (74) Pulse Ox 99 Intake and Output 09/28/20 06:59 Intake Total 4190 ml Output Total 3700 ml Balance 490 ml General: Other (intubated/sedated) HEENT: PERRLA, Other (ET tube in place) Neck: No JVD Lungs: Other (diminished bilaterally ) Heart: Regular rate, Normal S1, Normal S2, Other (NSR) Abdomen: Normal bowel sounds, Soft Extremities: No clubbing, No cyanosis, No edema Neuro: Other (intubated/sedated) Psych/Mental Status: Other (intubated/sedated) All Results(Lab/Rad) Laboratory Tests Test 09/03/20 21:02 09/04/20 04:47 09/04/20 05:59 09/04/20 07:15 Bedside Glucose 164 120 123 White Blood Count 8.1 10^3/uL Red Blood Count 4.89 10^6/uL Hemoglobin 14.2 g/dL Hematocrit 40.7 % Mean Corpuscular Volume 83.2 fL Mean Corpuscular Hemoglobin 29.0 pg Mean Corpuscular Hemoglobin Concent 34.9 g/dL Red Cell Distribution Width 12.0 % Platelet Count 185 10^3/uL Mean Platelet Volume 9.6 fL Neutrophils (%) (Auto) 83.5 % Lymphocytes (%) (Auto) 9.7 % Monocytes (%) (Auto) 6.0 % Neutrophils # (Auto) 6.8 10^3/uL Lymphocytes # (Auto) 0.79 10^3/uL1 Monocytes # (Auto) 0.5 10^3/uL Absolute Immature Granulocyte (auto 0.05 10^3 u/L Absolute Eosinophils (auto) 0.0 10^3/uL Immature Granulocytes % 0.60 % Eosinophils % 0.0 % Basophils % 0.2 % Basophils # 0.0 10^3/uL Sodium Level 132 mmol/L Potassium Level 3.6 mmol/L Chloride Level 97.0 mmol/L Carbon Dioxide Level 26.0 mmol/L Anion Gap 12.6 Blood Urea Nitrogen 21 mg/dL Creatinine 1.18 mg/dL Estimated GFR () 75.2 Est GFR (CKD-EPI)(Non-Afr Macanese) 62.1 BUN/Creatinine Ratio 17.0 Glucose Level 118 mg/dL Hemoglobin A1c 8.0 % Calcium Level 8.3 mg/dL Total Bilirubin 0.7 mg/dL Aspartate Amino Transf (AST/SGOT) 55 U/L Alanine Aminotransferase (ALT/SGPT) 37 U/L Alkaline Phosphatase 40 U/L Total Protein 6.5 g/dL Albumin 2.3 g/dL Globulin 4.2 Albumin/Globulin Ratio 0.547 Triglycerides Level 65 mg/dL Cholesterol Level 76 mg/dL LDL Cholesterol, Calculated 26.0 VLDL Cholesterol, Calculated 13.0 HDL Cholesterol 37 mg/dL Cholesterol Ratio (LDL/HDL) 0.7 Cholesterol/HDL Ratio [id number] Test 09/04/20 11:37 09/04/20 12:22 09/04/20 16:36 Bedside Glucose 159 131 D-Dimer 1.85 mg/L Troponin I < 0.02 ng/mL Pro-B-Type Natriuretic Peptide 97 pg/mL Current Medications Medications (Trade) Dose Ordered Sig/Adrianna Route PRN Reason Start Time Stop Time Status Last Admin Dose Admin Acetaminophen (Tylenol) 325 mg Q4H PRN PO PAIN 1 - 3 09/03/20 19:00 10/03/20 18:59 Morphine Sulfate (Morphine Sulfate) 2 mg Q4H PRN IV PAIN 4 - 6 09/03/20 19:00 09/04/20 19:28 DC Insulin Human Lispro (Humalog) 0-140 0 Units 141-200... ACHS SQ 09/03/20 21:00 10/03/20 20:59 09/04/20 11:30 Dextrose 1,000 ml @ 100 mls/hr Q10H PRN IV HYPOGLYCEMIA 09/03/20 19:00 10/03/20 18:59 Dextrose (Dextrose 50%-Water Syringe) 25 ml STAT PRN IV HYPOGLYCEMIA 09/03/20 19:00 10/03/20 18:59 Glucagon (Glucagen) 1 mg STAT STAT IV 09/03/20 18:44 09/03/20 18:56 DC Heparin Sodium (Porcine) (Heparin) 5,000 unit Q8HR SQ 09/03/20 22:00 10/03/20 21:59 09/04/20 14:00 Lisinopril (Zestril) 20 mg BID PO 09/03/20 21:00 10/03/20 20:59 09/04/20 08:22 Azithromycin 500 mg/Sodium Chloride 250 ml @ 175 mls/hr Q24HRS IV 09/03/20 20:30 09/04/20 08:15 DC 09/03/20 21:11 Ceftriaxone Sodium 1000 mg/ Sodium Chloride 100 ml @ 100 mls/hr Q24HRS IV 09/03/20 19:30 09/04/20 08:15 DC 09/03/20 19:39 Sodium Chloride 1,000 ml @ 75 mls/hr [id number] IV 09/03/20 20:00 10/03/20 19:59 09/04/20 09:20 Ceftriaxone Sodium (Rocephin) 1,000 mg STK-MED ONCE .ROUTE 09/03/20 19:35 09/03/20 19:35 DC Sodium Chloride 100 ml @ ud STK-MED ONCE IV 09/03/20 19:35 09/03/20 19:36 DC Zinc Sulfate (Zinc Sulfate) 220 mg DAILY PO 09/04/20 09:00 10/04/20 08:59 09/04/20 08:22 Ascorbic Acid (Vitamin C) 500 mg BID PO 09/04/20 09:00 10/04/20 08:59 09/04/20 08:22 Morphine Sulfate (Morphine Sulfate) 2 mg Q4H PRN IV PAIN 4 - 6 09/04/20 19:28 10/03/20 18:59 Course Sepsis Screening Results: Posi: POSITIVE++ Sepsis Qualifier/Stage: SEVERE SEPSIS RISK DATE SEEN BY PHYSICIAN: Sep 11, 2020 TIME SEEN BY PROVIDER: 13:20 Duration or Total Time Spent w: 60 mins Vitals & review Data Vital Sign - Last 24 Hours 09/11/20 09/11/20 09/11/20 09/11/20 07:00 07:00 07:30 08:00 Temp 98.0 Pulse 62 67 Resp 28 27 B/P (MAP) 160/83 (108) 150/75 (100) Pulse Ox 96 91 O2 Delivery Non-Rebreather O2 Flow Rate 15.00 09/11/20 09/11/20 09/11/20 09/11/20 08:25 08:40 09:00 09:00 Pulse 65 87 81 Resp 22 19 B/P (MAP) 149/72 149/86 Pulse Ox 93 94 O2 Delivery Non-Rebreather O2 Flow Rate 15.00 FiO2 100 09/11/20 09/11/20 09/11/20 09/11/20 09:00 10:00 11:00 12:00 Pulse 67 74 68 Resp 25 30 35 B/P (MAP) 149/72 (97) 128/69 (88) 134/65 (88) Pulse Ox 93 88 91 O2 Delivery Non-Rebreather O2 Flow Rate 15.00 Intake and Output 09/11/20 07:00 Intake Total 335 ml Output Total 670 ml Balance -335 ml Laboratory Tests Test 09/09/20 16:50 09/09/20 19:54 09/10/20 04:26 09/10/20 04:54 Bedside Glucose 192 219 93 White Blood Count 11.8 10^3/uL Red Blood Count 4.77 10^6/uL Hemoglobin 13.8 g/dL Hematocrit 39.8 % Mean Corpuscular Volume 83.4 fL Mean Corpuscular Hemoglobin 28.9 pg Mean Corpuscular Hemoglobin Concent 34.7 g/dL Red Cell Distribution Width 12.3 % Platelet Count 361 10^3/uL Mean Platelet Volume 9.2 fL Neutrophils (%) (Auto) 84.0 % Lymphocytes (%) (Auto) 9.0 % Monocytes (%) (Auto) 4.8 % Neutrophils # (Auto) 9.9 10^3/uL Lymphocytes # (Auto) 1.06 10^3/uL1 Monocytes # (Auto) 0.6 10^3/uL Absolute Immature Granulocyte (auto 0.23 10^3 u/L Absolute Eosinophils (auto) 0.0 10^3/uL Immature Granulocytes % 2.00 % Eosinophils % 0.1 % Basophils % 0.1 % Basophils # 0.0 10^3/uL D-Dimer 8.09 mg/L Sodium Level 140 mmol/L Potassium Level 3.7 mmol/L Chloride Level 106.0 mmol/L Carbon Dioxide Level 27.2 mmol/L Anion Gap 10.5 Blood Urea Nitrogen 19 mg/dL Creatinine 0.96 mg/dL Estimated GFR () 95.4 Est GFR (CKD-EPI)(Non-Afr Macanese) 78.9 BUN/Creatinine Ratio 19.0 Glucose Level 100 mg/dL Calcium Level 7.9 mg/dL Phosphorus Level 2.4 mg/dL Magnesium Level 1.8 mg/dL Ferritin 1073 ng/mL Total Bilirubin 0.7 mg/dL Aspartate Amino Transf (AST/SGOT) 27 U/L Alanine Aminotransferase (ALT/SGPT) 29 U/L Alkaline Phosphatase 58 U/L Lactate Dehydrogenase 295 U/L Total Creatine Kinase 41 U/L C-Reactive Protein 3.25 mg/dL Total Protein 5.7 g/dL Albumin 2.0 g/dL Globulin 3.7 Albumin/Globulin Ratio 0.540 Procalcitonin 0.10 ng/mL Test 09/10/20 07:10 09/10/20 11:33 09/10/20 16:46 09/10/20 19:51 Bedside Glucose 134 173 178 169 Test 09/11/20 01:56 09/11/20 02:03 09/11/20 05:13 09/11/20 05:14 Bedside Glucose 159 145 Blood Gas Sample Site LB Blood Gas pH 7.398 Blood Gas PCO2 31.4 mmHg Blood Gas PO2 54.5 mmHg Blood Gas HCO3 18.9 mmol/L Blood Gas Base Excess -4.8 mmol/L Abdi Test POSITIVE Arterial Blood Oxygen Saturation 87.1 % Deoxyhemoglobin 12.9 % Carboxyhemoglobin 0.3 % Methemoglobin 0.0 % Total Hemoglobin 13.4 % Total Oxygen Concentration 16.3 % Blood Gas Temperature 37 Oxygen Delivery Method (LAB) NON-REBREATHER MASK FiO2 100 % Total Carbon Dioxide 19.9 mmol/L White Blood Count 11.5 10^3/uL Red Blood Count 4.66 10^6/uL Hemoglobin 13.4 g/dL Hematocrit 39.1 % Mean Corpuscular Volume 83.9 fL Mean Corpuscular Hemoglobin 28.8 pg Mean Corpuscular Hemoglobin Concent 34.3 g/dL Red Cell Distribution Width 12.2 % Platelet Count 296 10^3/uL Mean Platelet Volume 9.2 fL Neutrophils (%) (Auto) 87.0 % Lymphocytes (%) (Auto) 5.9 % Monocytes (%) (Auto) 5.0 % Neutrophils # (Auto) 10.0 10^3/uL Lymphocytes # (Auto) 0.68 10^3/uL1 Monocytes # (Auto) 0.6 10^3/uL Absolute Immature Granulocyte (auto 0.23 10^3 u/L Absolute Eosinophils (auto) 0.0 10^3/uL Immature Granulocytes % 2.00 % Eosinophils % 0.0 % Basophils % 0.1 % Basophils # 0.0 10^3/uL Sodium Level 139 mmol/L Potassium Level 3.9 mmol/L Chloride Level 106.0 mmol/L Carbon Dioxide Level 23.2 mmol/L Anion Gap 13.7 Blood Urea Nitrogen 22 mg/dL Creatinine 0.88 mg/dL Estimated GFR () 105.5 Est GFR (CKD-EPI)(Non-Afr Macanese) 87.2 BUN/Creatinine Ratio 25.0 Glucose Level 151 mg/dL Calcium Level 8.3 mg/dL Phosphorus Level 3.1 mg/dL Magnesium Level 2.3 mg/dL Total Bilirubin 0.7 mg/dL Aspartate Amino Transf (AST/SGOT) 27 U/L Alanine Aminotransferase (ALT/SGPT) 23 U/L Alkaline Phosphatase 71 U/L Total Protein 5.7 g/dL Albumin 2.0 g/dL Globulin 3.7 Albumin/Globulin Ratio 0.540 Test 09/11/20 05:41 09/11/20 07:35 09/11/20 07:50 09/11/20 11:42 Blood Gas Sample Site RT RADIAL ARTERY RR Blood Gas pH 7.405 7.398 Blood Gas PCO2 35.2 mmHg 36.1 mmHg Blood Gas PO2 53.5 mmHg 52.5 mmHg Blood Gas HCO3 21.6 mmol/L 21.8 mmol/L Blood Gas Base Excess -2.5 mmol/L -2.5 mmol/L Abdi Test POSITIVE POSITIVE Arterial Blood Oxygen Saturation 87.9 % 86.0 % Deoxyhemoglobin 12.1 % 13.9 % Carboxyhemoglobin 0 % 0.6 % Methemoglobin 0.1 % 0.3 % Total Hemoglobin 14.0 % 13.9 % Total Oxygen Concentration 17.3 % 16.6 % Blood Gas Temperature 37 37 Oxygen Delivery Method (LAB) NON-REBREATHER MASK NON-REBREATHER MASK FiO2 100 % 100 % Total Carbon Dioxide 22.6 mmol/L 22.9 mmol/L Bedside Glucose 133 185 Current Medications Medications (Trade) Dose Ordered Sig/Adrianna PRN Reason Start Time Stop Time Status Last Admin Enoxaparin Sodium (Lovenox) 80 mg BID 09/09/20 19:00 10/04/20 20:29 09/11/20 09:00 Lorazepam (Ativan) 1 mg Q4HR PRN ANXIETY 09/11/20 00:30 10/11/20 00:29 09/11/20 09:00 Metoprolol Tartrate (Lopresser) 25 mg BID 09/09/20 21:00 10/09/20 20:59 09/11/20 09:00 Remdesivir 100 mg/ Sodium Chloride 120 ml @ 111.111 mls/hr Q24HRS 1/9/21 19:00 10/08/20 18:59 09/10/20 18:00 LEVEL 1 SEPSIS INFECTION CRITE: Cough/Shortness of Breath, Flu-Pneumonia LEVEL 2-SIRS (LIST ALL THAT AP: RR>20/min, WBC>[id number] Cardiovascular Evidence: Not Assessed or None Hematologic Evidence: None/Not assessed Hepatic Evidence: None/Not assessed Metabolic Evidence: None/Not assessed Neurological Evidence: Altered Mental Status Respiratory Evidence: Acute Resp failure, Need for O2 to keep>90%, O2 SAT<90room air Renal Evidence: None/Not assessed O2 Sat by Pulse Oximetry: 99 Oxygen Flow Rate: 70.00 Assessment/Plan Assessment/Plan Assessment/Plan Assessment/Plan A 64 y.o. male w/ PMHx significant for HTN, HLD, DM II, who was admitted on Sep 03 for Acute Hypoxemic respiratory failure. Initially, his COVID testing returned negative and his hypoxemia was thought to be 2/2 another etiology. However, after no etiology could be elucidated, a COVID PCR was repeated and returned positive. He was then started on treatment for COVID-19 with Azithromycin, steroids, Remdesivir, CCP, and Zinc/Vitamin C. Despite treatment, his respiratory status slowly declined and he was intubated on Sep 13. At this time, he is stable on current sedation and intermittently requiring pressors. He was started on proning protocol on Sep 18, 16h prone and 8h supine. This was held starting the evening of Sep 21 due to periorbital edema and chemosis, which resolved spontaneously. He fevered again to 101F on Sep 23 and had repeat Blood, urine, and sputum cultures drawn. At this time, he has made very little progress towards being weaned from the vent and is approaching 15 days of ventilation. Discussed this with his daughters, and explained that he would not be a good candidate for a tracheostomy as he has made very little progress to this point. However, will defer further discussions for a later date. Recurrent fever despite broad spectrum antibiotics will consult ID and consider changing lines. Switch Cefepime to Meropenem to to Ceftriaxone resistance and possible inducible resistance to all cephalosporins, including cefepime COVID PNEUMONIA SEVERE ARDS ACUTE HYPOXEMIC RESPIRATORY FAILURE SEPTIC SHOCK - Telemed Intensivists following; appreciate assistance with vent and medical management - Completed 5 days of Remdesivir - Completed 5 days of Azithromycin - Pt was started on Dexamethasone initially for treatment of COVID; he was transitioned to Methylprednisolone at some point, which was discontinued on Sep 17. - Pt has completed 5 days of Rocephin for CAP PNA today; will discontinue - Duonebs q4h scheduled - Given P/F ratio, will start proning. 16h prone, 8h supine. holding proning due to periorbital edema and chemosis - continue sedation with RASS goal of < - 2 - minimize vec pushes if possible - Pt meets criteria for septic shock given +SIRS, infection, and hypotension requiring pressors - goal fluid balance should be negative to keep Pt as dry as possible - follow repeat Blood/urine/sputum cultures; so far no growth to date on blood cultures and urine cultures. Sputum cultures have grown out enterococcus species - decreased lasix to 20mg daily ESSENTIAL HYPERTENSION - stable with pressors - holding home antihypertensives for now T2DM - blood sugars very labile - decreased insulin to just Sliding scale due to hypoglycemia at night - enteral feeding ongoing STAGE I ZOEY, resolved - likely pre-renal given hypotension and septic shock requiring pressors - continue to monitor Cr closely; currently on the downtrend - avoid further hypotension Keep MAP > 60 - avoid nephrotoxins where possible - monitor UOP; - Keep pt as dry as possible while maintaining UOP/renal function Hypoalbuminemia, improved - albumin very low at 1.2 [09/21]; improved to 1.4 with 25% Albumin - Gave 25% Albumin q8h x3 Sep 22. Albumin improved to 2.5 - monitor Feeding - GLUCERNA 1.5CAL Analgesia - fentanyl gtt Sedation - Propofol. precedex, versed VTE ppx - lovenox Head of bed - 30 degrees GI ppx - protonix Weened PEEP to 8 yesterday and increased to 10 today Bowels care - having regular BMs UOP - Crawford in place Sputum culture results FINAL REPORT KLEBSIELLA AEROGENES E AEROGENE [facility].I[facility] RX --------- --- * CEFEPIME <=2 S * CEFTRIAXONE >2 R * CIPROFLOXACIN <=0.25 S * ERTAPENEM <=0.5 S * GENTAMICIN <=4 S * LEVOFLOXACIN <=0.5 S * MEROPENEM <=1 S * TOBRAMYCIN <=4 S * TRIMETHOPRIM-SULFAMETHOXAZOLE <=2/38 S * PIPERACILLIN/TAZOBACTAM <=16 S Infectious Disease Recomendations: A 64 y.o. male w HTN, HLD, DM II, who was admitted on Sep 03 for respiratory failure due to COVID; now intubated, and having febrile episodes since past few days along with increased FiO2 dependency. ASSESSMENT: -acute hypoxemic resp failure. intubated since 09/13 -COVID pneumonia diagnosed on 09/05. s/p Remdesevir and Steroids. -Fever at least since 09/23. likely due to VAP. Enterobacter spp isolated from resp culture which is Ceftriaxone resistance, and for all practical purposes will confer class resistance against all cephalosporins. -Leukocytosis due to above. -CRP is showing up agrawal trend -CXR persistent infiltrates noted. -Procalcitonin elevated. -severe sepsis. intermittent levophed dependent. -mild eosinophilia noted -elevated D dimer. patient already on therapeutic Lovenox. RECOMMENDATION: -if B cx remain negative then stop Vancomycin tomorrow. -switch Cefepime to Meropenem 1 gm iv q8 for 7 days. EOT 10/06 -recheck CRP, LDH, Ferritin. 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 Thanks for the consult please call me with any questions Amy Zamudio MD Infectious Diseases we will sign off Critical care recommendations: #1 Neuro: The pt is intubated and sedated on prop, precedex and fentanyl. #2 CV: THe pt has been normotensive but will prn need levo to keep MAP >65. #3 Pulm: The pt is s/p tx with remdesivir lovenox and decadron. VEnt settings of 100% on 10 PEEP. The pt also has evidence of PNA with enterobacter on cefepime and vanco. WOujld treat 7 days. His o2 sat is worse likely in the setting of fever and dysynchrony. #4 GI: COnt tf #5 Renal: Monitor for renal failure, replete lytes, lasix PRN #6 ID: [id number] , pt with enterobacter PNA on appropriate tx. The pt continues to have persistent fevers and so may need to change antibiotics or lines. Enterobacter is a SPACE organism and can have ampc inducibility and ESBL production after cefepime exposure. WIll await further cultres. WOuld consult ID for additional guidance. #7 Endo: keep FS 150-180 #8 Heme: Tx plats >10k hgb >7 #9 PPx: lovenox and PPI HUSEYIN SHERMAN MD Sep 28, 2020 17:24
--- NOTE | 2020-09-28 18:04 | DIET.OP ---
Nutrition Asmt/Malnutrit 2-17 Actual Date of Review: Sep 28, 2020 Diagnosis: Covid 19, Acute Hypoxemic Respiratory Failure Pertinent Medical Hx/Surgical: HTN, HLD, T2DM Subjective Information: telehealth f/u- pt remains intubated and sedated. Propofol at 50 mcg/kg/min providing 648 kcal. Pt spiked a fever and was started on antibiotics. Proning remains on hold. BG 188-242 mg/dl. Current Diet Order/Nutrition S: NPO Patient /S.O: Not Indicated Height (Feet): 5 Height (Inches): 6 Current Weight: 173 %IBW: 132 Recent Weight Change: Yes (stable since last assessment) Weight Status: Overweight Food Allergies: No Cultural/Ethnic/Taoist [place]: none identified BEE in Kcals: Use Current Weight Calories/Kcals/Kg: [address] 2002 (09/20) Kcals Calculated: 1817 kcal Protein: Use Current Weight Protein g/k.8-1 g/kg Protein Calculated: 60-75g Fluid: ml: 2116-1024 ml or 1 ml/kcal Nutritional Problem: No Cur. Nutritional Probl RD Comments: 1. Recommend Glucerna 1.5 135cc Q4h with 155cc water flush Q4. This will provide 1215 kcal, 67 g pro, 108 g CHO, 61 g fat, and 1545 ml of water to meet 100% of the pts nutrition needs in combination with calories from propofol. 2. Monitor K, Mg, and PO4 before and during EN initiation. 3. Monitor BG Q4hr and correct as indicated. RD to monitor TF tolerance, weight, labs, care plan, and vent and sedation setting. Will update recommendations accordingly. Expected Outcomes TF meeting 100% of pts needs the next 2 days and tolerated well. met, continue Discharge goal is pending. Malnutrtion/Nutrition Risk Edu: No MD Notificiation Needed?: No Jessica Morris Sep 28, 2020 18:04
--- NOTE | 2020-09-28 20:15 | TELE.CONS ---
Consultation Reason for Consult: Reason for Consultation: Fever in ICU patient History of Present Illness History of Patient Comments A 64 y.o. male w HTN, HLD, DM II, who was admitted on Sep 03 for respiratory failure due to COVID; now intubated, and having febrile episodes since past few days along with increased FiO2 dependency. patient was diagnosed with COVID on 09/05/20. he received treatment with Azithromycin, steroids, Remdesivir. his respiratory status slowly declined leading to intubated on Sep 13. At this time, he is stable on current sedation and intermittently requiring pressors. He exhibited fever on Sep 23 and had repeat Blood, urine, and sputum cultures drawn. he was treated with Ceftriaxone. resp cultures have grown Enterobacter spp. due to persistent fever his abx regimen was broadened to include Cefepime and Vancomycin on 09/27. during my evaluation he was off of pressors but tachycardiac, thick ellen secretions from ET tube are elicited. he has small purpuric rash on his chest and an area of erythema on rigth groin. he has about 7 days old PICC line which looks clean and the limb is not swollen. fup CXR still shows scattered GGO consistent with covid pneumonia. CRP has shown an upward trend. Review of Systems Constitutional: Weakness; No: Fever, Chills, Sweats, Malaise, Other Eyes: No: Pain, Vision change, Conjunctivae inflammation, Eyelid inflammation, Other, Redness ENT: No: Ear pain, Ear discharge, Nose pain, Nose discharge, Nose congestion, Mouth pain, Mouth swelling, Throat pain, Throat swelling, Other Respiratory: Shortness of breath Cardiovascular: No: Chest Pain, Palpitations, Orthopnea, Paroxysmal Noc. Dyspnea, Edema, Lt Headedness, Other Gastrointestinal: No: Nausea, Vomiting, Abdominal Pain, Diarrhea, Constipation, Melena, Hematochezia, Other Genitourinary: No Dysuria, No Frequency, No Incontinence, No Hematuria, No Retention, No Other Musculoskeletal: No: other, neck pain, shoulder pain, arm pain, back pain, hand pain, leg pain, foot pain Skin: No: Rash, Lesions, Jaundice, Bruising, Other Allergies: Coded Allergies: No Known Allergies (Unverified , 09/03/20) Scheduled Lisinopril (Lisinopril), 1 TAB PO BID, (Reported) Metformin Hcl (Metformin Hcl), 1,000 MG PO BID, (Reported) VITALS REVIEW VITALS Vital Sign - Last 24 Hours 09/24/20 09/24/20 09/24/20 09/24/20 07:30 07:45 08:00 08:00 Temp 99.0 99.0 99.0 Pulse 81 81 82 95 Resp 27 12 10 26 B/P (MAP) 121/57 (78) 139/55 (83) 112/64 (80) 128/53 (78) 135/57 (83) Pulse Ox 99 97 96 100 FiO2 70 09/24/20 09/24/20 09/24/20 09/24/20 08:00 08:00 08:00 08:15 Temp 99.0 Pulse 82 80 Resp 12 B/P (MAP) 142/56 (84) Pulse Ox 97 96 O2 Delivery Mechanical Ventilator Mechanical Ventilator FiO2 70 70 09/24/20 09/24/20 09/24/20 09/24/20 08:30 08:45 08:52 08:52 Temp 99.1 99.1 Pulse 82 83 84 84 Resp 27 B/P (MAP) 119/60 (79) 136/53 (80) 133/54 (80) Pulse Ox 97 97 96 96 O2 Delivery Mechanical Ventilator FiO2 70 09/24/20 09/24/20 09/24/20 09/24/20 09:00 09:00 09:15 09:30 Temp 99.1 99.1 99.1 Pulse 90 91 93 Resp 19 17 5 B/P (MAP) 154/66 139/79 (99) 152/54 (86) 133/66 (88) 159/56 (90) 130/51 (77) Pulse Ox 93 97 96 09/24/20 09/24/20 09/24/20 09/24/20 09:45 10:00 10:15 10:22 Temp 99.1 99.1 99.1 Pulse 94 96 96 95 Resp 26 B/P (MAP) 114/48 (70) 116/58 (77) 122/49 (73) 113/46 (68) Pulse Ox 97 97 97 99 FiO2 85 09/24/20 09/24/20 09/24/20 09/24/20 10:30 10:45 11:00 11:15 Temp 99.1 99.0 99.1 99.1 Pulse 96 97 98 98 Resp 11 13 B/P (MAP) 119/64 (82) 141/53 (82) 120/62 (81) 134/54 (80) 122/48 (72) 133/53 (79) Pulse Ox 100 100 99 99 09/24/20 09/24/20 09/24/20 09/24/20 11:30 11:45 12:00 12:00 Temp 99.3 99.5 99.5 Pulse 100 99 100 Resp B/P (MAP) 123/63 (83) 127/52 (77) 125/68 (87) 134/54 (80) 134/53 (80) Pulse Ox 100 100 100 O2 Delivery Mechanical Ventilator FiO2 85 09/24/20 09/24/20 09/24/20 09/24/20 12:00 12:00 12:15 12:30 Temp 99.5 99.5 Pulse 99 99 98 Resp 18 B/P (MAP) 108/49 (68) 100/47 (64) 99/48 (65) Pulse Ox 100 100 100 O2 Delivery Mechanical Ventilator FiO2 85 09/24/20 09/24/20 09/24/20 09/24/20 12:45 13:00 13:15 13:30 Temp 99.5 99.1 99.0 99.0 Pulse 90 87 85 83 Resp B/P (MAP) 103/51 (68) 106/55 (72) 108/53 (71) 113/59 (77) 111/53 (72) 123/60 (81) Pulse Ox 100 100 100 100 09/24/20 09/24/20 09/24/20 09/24/20 13:45 14:00 14:00 14:15 Temp 98.8 98.6 98.4 Pulse 82 87 77 78 Resp B/P (MAP) 111/55 (73) 114/56 (75) 107/55 (72) 98/54 (69) Pulse Ox 100 100 99 99 FiO2 85 09/24/20 09/24/20 09/24/20 09/24/20 14:30 14:45 15:00 15:15 Temp 98.4 98.2 98.2 98.2 Pulse 79 76 75 75 Resp B/P (MAP) 114/60 (78) 122/61 (81) 117/61 (79) 108/56 (73) 106/55 (72) 116/58 (77) Pulse Ox 100 100 100 100 09/24/20 09/24/20 09/24/20 09/24/20 15:30 15:45 16:00 16:00 Temp 98.2 98.2 98.2 Pulse 72 71 71 Resp B/P (MAP) 124/66 (85) 122/58 (79) 133/73 (93) 122/59 (80) 135/65 (88) Pulse Ox 100 100 100 O2 Delivery Mechanical Ventilator FiO2 85 09/24/20 09/24/20 09/24/20 09/24/20 16:00 16:00 16:15 16:30 Temp 98.2 98.2 Pulse 71 74 72 Resp B/P (MAP) 114/58 (76) 135/68 (90) 118/57 (77) Pulse Ox 100 100 100 O2 Delivery Mechanical Ventilator FiO2 85 09/24/20 09/24/20 09/24/20 09/24/20 16:45 17:00 17:00 17:15 Temp 98.2 98.2 98.2 Pulse 72 70 70 75 Resp B/P (MAP) 119/57 (77) 124/60 (81) 117/59 (78) 122/56 (78) Pulse Ox 100 99 100 100 FiO2 85 09/24/20 09/24/20 09/24/20 09/24/20 17:30 17:45 18:00 19:00 Temp 98.2 98.2 98.2 98.4 Pulse 76 81 83 82 Resp B/P (MAP) 119/56 (77) 112/51 (71) 122/59 (80) 113/52 (72) 105/51 (69) 131/56 (81) 112/50 (70) Pulse Ox 100 100 99 98 O2 Delivery Vent O2 Flow Rate 85.00 09/24/20 09/24/20 09/24/20 09/24/20 19:15 19:30 19:30 19:45 Temp 98.4 98.4 98.2 Pulse 82 73 78 81 Resp B/P (MAP) 103/48 (66) 108/52 (70) 106/51 (69) 108/52 (70) Pulse Ox 98 100 96 100 FiO2 85 09/24/20 09/24/20 09/24/20 09/24/20 20:00 20:00 20:00 20:15 Temp 98.4 98.2 Pulse 82 81 Resp B/P (MAP) 119/60 (79) 136/61 (86) 130/56 (80) Pulse Ox 97 100 O2 Delivery Mechanical Ventilator Mechanical Ventilator FiO2 85 09/24/20 09/24/20 09/24/20 09/24/20 20:16 20:20 20:20 20:30 Temp 98.2 98.2 Pulse 80 78 78 82 Resp B/P (MAP) 121/61 (81) 111/51 (71) 128/57 (80) 112/51 (71) Pulse Ox 99 100 100 96 O2 Delivery Mechanical Ventilator FiO2 85 70 09/24/20 09/24/20 09/24/20 09/24/20 20:43 21:00 21:15 21:30 Temp 98.1 98.1 98.1 Pulse 82 78 78 75 Resp B/P (MAP) 116/58 (77) 127/55 (79) 116/60 (78) 132/58 (82) 132/57 (82) Pulse Ox 96 96 93 94 FiO2 85 09/24/20 09/24/20 09/24/20 09/24/20 21:45 22:00 22:15 22:30 Temp 98.1 98.2 98.2 98.2 Pulse 74 75 74 78 Resp B/P (MAP) 133/59 (83) 119/55 (76) 147/62 (90) 155/80 (105) 120/53 (75) 176/73 (107) Pulse Ox 95 92 94 93 09/24/20 09/24/20 09/24/20 09/24/20 22:33 22:45 23:00 23:15 Temp 98.2 98.4 98.4 98.4 Pulse 78 85 83 83 Resp B/P (MAP) 154/79 (104) 119/56 (77) 117/54 (75) 132/59 (83) 176/70 (105) 128/59 (82) Pulse Ox 96 100 99 99 1/25/21 1/25/21 1/26/21 1/26/21 23:30 23:45 00:00 00:00 Temp 98.2 98.2 98.1 Pulse 82 83 84 Resp B/P (MAP) 110/58 (75) 132/60 (84) 118/49 (72) 133/61 (85) 120/54 (76) Pulse Ox 99 99 97 O2 Delivery Vent Mechanical Ventilator O2 Flow Rate 85.00 09/25/20 09/25/20 09/25/20 09/25/20 00:00 00:00 00:02 00:15 Temp 98.1 98.1 Pulse 87 85 87 Resp B/P (MAP) 117/53 (74) 131/55 (80) 129/56 (80) Pulse Ox 97 96 98 O2 Delivery Mechanical Ventilator FiO2 85 85 09/25/20 09/25/20 09/25/20 09/25/20 00:20 00:30 01:00 01:15 Temp 98.1 98.2 98.4 Pulse 84 88 88 87 Resp B/P (MAP) 123/54 (77) 117/56 (76) 133/56 (81) 134/56 (82) 127/54 (78) Pulse Ox 100 97 97 97 FiO2 85 09/25/20 09/25/20 09/25/20 09/25/20 01:30 01:45 02:00 02:15 Temp 98.6 98.6 98.6 98.8 Pulse 85 85 84 85 Resp B/P (MAP) 111/47 (68) 128/56 (80) 119/54 (75) 124/56 (78) 121/53 (75) 131/58 (82) Pulse Ox 98 98 98 98 O2 Delivery Vent O2 Flow Rate 85.00 09/25/20 09/25/20 09/25/20 09/25/20 02:30 02:45 03:00 03:15 Temp 98.8 98.8 98.8 98.8 Pulse 84 84 83 84 Resp B/P (MAP) 111/50 (70) 117/54 (75) 119/53 (75) 119/54 (75) 122/55 (77) 133/58 (83) Pulse Ox 98 98 98 98 09/25/20 09/25/20 09/25/20 09/25/20 03:30 03:45 04:00 04:00 Temp 99.0 99.0 99.0 Pulse 84 85 90 Resp B/P (MAP) 120/56 (77) 118/53 (74) 120/58 (78) 122/55 (77) 116/48 (70) Pulse Ox 98 98 99 O2 Delivery Mechanical Ventilator Vent O2 Flow Rate 85.00 FiO2 85 09/25/20 09/25/20 09/25/20 09/25/20 04:00 04:00 04:15 04:30 Temp 99.0 Pulse 96 94 94 Resp B/P (MAP) 139/59 (85) 140/73 (95) 133/58 (83) Pulse Ox 100 94 92 O2 Delivery Mechanical Ventilator FiO2 85 09/25/20 09/25/20 09/25/20 09/25/20 04:40 04:45 05:00 05:15 Temp 99.3 99.5 99.5 Pulse 98 94 95 96 Resp B/P (MAP) 111/55 (73) 125/69 (87) 115/53 (73) 125/58 (80) Pulse Ox 100 100 97 100 FiO2 85 09/25/20 09/25/20 09/25/20 09/25/20 05:30 05:45 06:00 06:15 Temp 99.5 99.5 99.7 99.7 Pulse 98 103 100 100 Resp B/P (MAP) 129/61 (83) 138/58 (84) 115/62 (79) 119/53 (75) 130/57 (81) 113/52 (72) Pulse Ox 100 96 99 100 09/25/20 09/25/20 09/25/20 09/25/20 07:00 07:15 07:30 07:45 Temp 99.5 99.5 99.3 99.3 Pulse 96 94 94 90 Resp B/P (MAP) 105/54 (71) 103/51 (68) 107/57 (74) 108/50 (69) 101/50 (67) 107/54 (71) Pulse Ox 97 98 98 98 1/26/09/25/20 09/25/20 09/25/20 08:00 08:00 08:00 08:15 Temp 99.3 99.1 Pulse 85 89 90 Resp B/P (MAP) 116/62 (80) 123/56 (78) 122/56 (78) Pulse Ox 99 98 97 O2 Delivery Mechanical Ventilator FiO2 85 09/25/20 09/25/20 09/25/20 09/25/20 08:29 08:30 08:30 08:45 Temp 99.1 99.1 Pulse 89 88 88 87 Resp B/P (MAP) 117/63 (81) 109/52 (71) 115/53 (73) Pulse Ox 97 97 98 98 O2 Delivery Mechanical Ventilator FiO2 85 85 09/25/20 09/25/20 09/25/20 09/25/20 09:00 09:07 09:15 09:30 Temp 99.1 99.1 99.1 Pulse 86 91 86 89 Resp B/P (MAP) 121/62 (81) 112/53 (72) 114/66 (82) 112/52 (72) 110/52 (71) Pulse Ox 98 97 99 99 09/25/20 09/25/20 09/25/20 09/25/20 09:45 10:00 10:15 10:30 Temp 99.1 99.5 99.5 99.9 Pulse 92 96 98 99 Resp B/P (MAP) 107/51 (69) 127/74 (91) 110/54 (72) 110/63 (79) 124/58 (80) 101/51 (68) Pulse Ox 100 98 98 99 09/25/20 09/25/20 09/25/20 09/25/20 10:45 10:52 11:00 11:00 Temp 99.9 100.2 100.2 Pulse 98 100 99 99 Resp B/P (MAP) 98/50 (66) 110/63 (79) 110/63 (79) 95/50 (65) 95/50 (65) Pulse Ox 98 99 99 99 FiO2 85 09/25/20 09/25/20 09/25/20 09/25/20 11:15 11:30 11:45 12:00 Temp 100.0 99.9 99.7 99.7 Pulse 100 100 98 97 Resp B/P (MAP) 98/52 (67) 111/55 (73) 87/49 (62) 110/57 (74) 90/50 (63) 89/50 (63) Pulse Ox 99 99 99 99 09/25/20 09/25/20 09/25/20 09/25/20 12:00 12:15 12:30 12:45 Temp 99.5 99.3 99.1 Pulse 85 97 96 95 Resp B/P (MAP) 93/51 (65) 122/62 (82) 96/54 (68) 94/53 (67) Pulse Ox 99 99 99 100 FiO2 85 09/25/20 09/25/20 09/25/20 09/25/20 13:00 13:15 13:30 13:45 Temp 99.0 98.8 98.6 98.6 Pulse 98 99 98 103 Resp B/P (MAP) 127/69 (88) 119/63 (81) 123/71 (88) 139/68 (91) 118/62 (80) 111/60 (77) Pulse Ox 99 99 99 97 09/25/20 09/25/20 09/25/20 09/25/20 14:00 14:15 14:30 14:35 Temp 98.8 98.8 99.0 Pulse 101 101 100 98 Resp B/P (MAP) 117/73 (88) 131/68 (89) 133/72 (92) 131/67 (88) 120/64 (82) Pulse Ox 98 99 100 100 FiO2 80 09/25/20 09/25/20 09/25/20 09/25/20 14:45 15:00 15:15 15:30 Temp 99.0 98.8 98.8 98.8 Pulse 98 96 94 95 Resp 14 B/P (MAP) 117/63 (81) 118/67 (84) 115/63 (80) 127/73 (91) 119/65 (83) 127/69 (88) Pulse Ox 100 100 100 100 09/25/20 09/25/20 09/25/20 09/25/20 15:35 17:00 19:00 19:15 Temp 100.2 Pulse 107 98 98 Resp B/P (MAP) 131/53 (79) 122/63 (82) 116/61 (79) Pulse Ox 94 95 96 O2 Delivery Vent O2 Flow Rate 70.00 FiO2 80 09/25/20 09/25/20 09/25/20 09/25/20 19:30 19:38 19:40 19:45 Temp 100.0 100.2 100.2 100.2 Pulse 102 102 100 100 Resp B/P (MAP) 132/68 (89) 142/74 (96) 134/78 (96) 117/60 (79) 118/61 (80) 114/59 (77) 119/61 (80) Pulse Ox 93 95 96 97 09/25/20 09/25/20 09/25/20 09/25/20 20:00 20:00 20:00 20:00 Temp 100.2 Pulse 101 92 Resp B/P (MAP) 139/76 (97) 122/63 (82) Pulse Ox 97 96 O2 Delivery Mechanical Ventilator Mechanical Ventilator FiO2 70 70 09/25/20 09/25/20 09/25/20 09/25/20 20:15 20:30 20:30 20:30 Temp 100.2 100.4 Pulse 102 107 100 78 Resp B/P (MAP) 117/60 (79) 142/73 (96) 128/62 (84) Pulse Ox 97 96 97 100 O2 Delivery Mechanical Ventilator FiO2 85 70 09/25/20 09/25/20 09/25/20 09/25/20 20:45 21:00 21:30 21:45 Temp 100.6 100.6 100.6 100.6 Pulse 117 107 111 110 Resp B/P (MAP) 158/70 (99) 141/71 (94) 135/73 (93) 99/55 (70) 114/57 (76) 106/57 (73) Pulse Ox 93 95 95 95 09/25/20 09/25/20 09/25/20 09/25/20 22:00 22:14 22:15 22:16 Temp 100.4 100.4 100.2 100.2 Pulse 108 108 108 108 Resp B/P (MAP) 123/67 (85) 119/63 (81) 97/57 (70) 110/57 (74) 94/54 (67) 97/55 (69) 113/64 (80) Pulse Ox 96 96 96 96 09/25/20 09/25/20 09/25/20 09/25/20 22:17 22:30 22:45 23:00 Temp 100.2 100.2 100.2 99.9 Pulse 110 106 104 104 Resp B/P (MAP) 127/79 (95) 105/52 (69) 110/63 (79) 107/55 (72) 146/78 (100) 102/60 (74) 109/62 (78) Pulse Ox 95 98 99 99 09/25/20 09/25/20 09/26/20 09/26/20 23:15 23:30 00:00 00:00 Temp 99.9 99.9 99.5 Pulse 102 102 99 Resp B/P (MAP) 107/61 (76) 107/61 (76) 96/52 (67) 101/58 (72) Pulse Ox 99 99 98 O2 Delivery Mechanical Ventilator Vent O2 Flow Rate 70.00 FiO2 70 09/26/20 09/26/20 09/26/20 09/26/20 00:00 00:00 00:15 00:29 Temp 99.5 99.5 Pulse 92 99 97 Resp B/P (MAP) 106/61 (76) 110/56 (74) 106/61 (76) Pulse Ox 100 100 100 O2 Delivery Mechanical Ventilator FiO2 70 09/26/20 09/26/20 09/26/20 09/26/20 00:30 00:45 01:00 01:00 Temp 99.3 99.3 99.2 99.3 Pulse 97 96 95 97 Resp B/P (MAP) 112/62 (79) 123/67 (85) 120/67 (84) 118/63 (81) Pulse Ox 99 98 99 99 09/26/20 09/26/20 09/26/20 09/26/20 01:15 01:30 01:45 02:00 Temp 99.3 99.3 99.3 99.1 Pulse 98 98 95 94 Resp B/P (MAP) 117/62 (80) 123/64 (83) 118/63 (81) 128/63 (84) 117/61 (79) 114/61 (78) Pulse Ox 98 97 97 97 O2 Delivery Vent 09/26/20 09/26/20 09/26/20 09/26/20 02:15 02:28 02:30 02:45 Temp 99.1 99.1 99.1 Pulse 94 100 93 95 Resp B/P (MAP) 115/62 (79) 115/62 (79) 108/61 (77) 116/62 (80) Pulse Ox 97 95 97 96 FiO2 85 09/26/20 09/26/20 09/26/20 09/26/20 03:00 03:15 03:30 03:45 Temp 99.1 99.1 99.1 99.1 Pulse 93 93 94 94 Resp B/P (MAP) 112/62 (79) 112/61 (78) 113/60 (77) 108/60 (76) 113/61 (78) 107/59 (75) Pulse Ox 97 98 98 98 09/26/20 09/26/20 09/26/20 09/26/20 04:00 04:00 04:00 04:00 Temp 99.1 Pulse 92 93 Resp B/P (MAP) 125/59 (81) 118/62 (80) Pulse Ox 100 98 O2 Delivery Mechanical Ventilator Mechanical Ventilator FiO2 70 70 09/26/20 09/26/20 09/26/20 09/26/20 04:00 04:15 04:30 04:45 Temp 99.1 99.1 Pulse 93 96 98 Resp B/P (MAP) 116/61 (79) 148/82 (104) 158/77 (104) Pulse Ox 98 94 96 O2 Delivery Mechanical Ventilator FiO2 70 85 09/26/20 09/26/20 09/26/20 09/26/20 04:45 05:00 05:15 05:30 Temp 99.5 99.5 99.7 99.9 Pulse 93 97 101 98 Resp B/P (MAP) 128/65 (86) 137/62 (87) 157/71 (99) 136/69 (91) 130/63 (85) 135/65 (88) Pulse Ox 96 96 99 95 09/26/20 09/26/20 09/26/20 09/26/20 06:00 06:02 06:15 06:30 Temp 100.2 100.2 100.2 100.2 Pulse 102 100 99 101 Resp B/P (MAP) 172/73 (106) 134/59 (84) 126/62 (83) 136/76 (96) 125/59 (81) 148/69 (95) Pulse Ox 92 92 94 95 09/26/20 09/26/20 09/26/20 09/26/20 06:45 07:00 07:30 08:00 Temp 100.2 100.2 Pulse 99 97 Resp B/P (MAP) 153/72 (99) 130/78 (95) 133/66 (88) Pulse Ox 96 97 O2 Delivery Mechanical Ventilator Mechanical Ventilator FiO2 70 09/26/20 09/26/20 09/26/20 09/26/20 08:00 08:18 08:21 09:00 Temp 99.3 Pulse 96 96 96 95 Resp B/P (MAP) 134/75 (94) 136/69 (91) Pulse Ox 100 96 96 96 O2 Delivery Mechanical Ventilator FiO2 70 70 70 09/26/20 09/26/20 09/26/20 09/26/20 09:15 09:30 09:45 10:00 Temp 99.3 99.5 99.5 99.5 Pulse 101 108 109 104 Resp B/P (MAP) 121/62 (81) 141/75 (97) 134/62 (86) 122/65 (84) 137/64 (88) 123/60 (81) Pulse Ox 97 97 100 95 09/26/20 09/26/20 09/26/20 09/26/20 10:06 10:15 10:30 10:45 Temp 99.5 99.5 99.5 Pulse 105 101 102 102 Resp B/P (MAP) 115/60 (78) 116/66 (83) 102/56 (71) 110/59 (76) Pulse Ox 97 98 97 97 FiO2 70 09/26/20 09/26/20 09/26/20 09/26/20 11:00 11:15 11:30 11:30 Temp 99.3 99.1 99.1 Pulse 99 98 97 99 Resp B/P (MAP) 118/67 (84) 100/57 (71) 119/62 (81) 106/58 (74) 105/59 (74) Pulse Ox 100 100 98 98 FiO2 60 09/26/20 09/26/20 09/26/20 09/26/20 11:30 11:45 12:00 12:00 Temp 99.0 99.0 Pulse 97 97 Resp 26 24 24 26 B/P (MAP) 100/56 (71) 115/65 (82) 104/59 (74) Pulse Ox 97 97 O2 Delivery Mechanical Ventilator Mechanical Ventilator FiO2 60 60 09/26/20 09/26/20 09/26/20 09/26/20 12:00 12:00 12:15 12:30 Temp 99.0 98.8 Pulse 97 96 98 Resp 24 24 24 B/P (MAP) 103/59 (74) 115/66 (82) 107/57 (74) Pulse Ox 97 98 96 O2 Delivery Mechanical Ventilator FiO2 60 09/26/20 09/26/20 09/26/20 09/26/20 12:45 13:00 13:15 13:30 Temp 98.8 99.0 99.0 99.1 Pulse 101 101 100 99 Resp 24 24 24 B/P (MAP) 121/61 (81) 120/72 (88) 116/61 (79) 127/68 (87) 116/60 (78) 120/63 (82) Pulse Ox 96 97 95 96 09/26/20 09/26/20 09/26/20 09/26/20 13:45 13:46 14:00 14:30 Temp 99.1 99.1 99.0 Pulse 98 97 97 96 Resp 24 24 24 B/P (MAP) 112/61 (78) 128/64 (85) 113/69 (84) 113/61 (78) 112/61 (78) Pulse Ox 95 95 95 96 FiO2 60 09/26/20 09/26/20 09/26/20 09/26/20 15:00 15:30 15:45 16:00 Temp 99.0 99.0 99.0 Pulse 94 94 96 Resp 24 24 26 B/P (MAP) 116/69 (85) 124/68 (86) 115/62 (79) 117/63 (81) 117/64 (81) Pulse Ox 95 96 95 O2 Delivery Mechanical Ventilator FiO2 60 09/26/20 09/26/20 09/26/20 09/26/20 16:00 16:00 16:00 16:15 Temp 99.0 99.0 Pulse 94 96 94 Resp 24 B/P (MAP) 132/67 (88) 122/66 (84) 122/65 (84) Pulse Ox 95 97 96 O2 Delivery Mechanical Ventilator FiO2 60 09/26/20 09/26/20 09/26/20 09/26/20 16:30 16:45 17:00 17:10 Temp 99.0 99.0 99.0 Pulse 93 96 96 95 Resp 24 B/P (MAP) 123/67 (85) 123/63 (83) 116/72 (87) 123/65 (84) 126/66 (86) Pulse Ox 96 97 96 95 FiO2 60 09/26/20 09/26/20 09/26/20 09/26/20 17:15 17:30 17:45 18:00 Temp 98.6 98.6 98.6 98.6 Pulse 93 94 94 95 Resp 24 B/P (MAP) 125/66 (85) 128/60 (82) 127/67 (87) 148/73 (98) 116/62 (80) 138/70 (92) Pulse Ox 96 96 95 94 09/26/20 09/26/20 09/26/20 09/26/20 18:15 18:30 19:00 19:15 Temp 98.8 98.8 99.1 99.3 Pulse 94 96 101 100 Resp 24 B/P (MAP) 137/70 (92) 133/78 (96) 133/78 (96) 147/71 (96) 140/70 (93) 147/71 (96) Pulse Ox 94 94 94 95 O2 Delivery Vent 09/26/20 09/26/20 09/26/20 09/26/20 19:30 19:40 19:45 20:00 Temp 99.7 99.9 99.9 Pulse 102 103 100 Resp B/P (MAP) 152/71 (98) 138/74 (95) 117/60 (79) 159/74 (102) 134/68 (90) Pulse Ox 94 94 93 O2 Delivery Mechanical Ventilator 1/2709/26/20 09/26/20 09/26/20 20:00 20:00 20:00 20:15 Temp 100.0 100.0 Pulse 102 96 99 Resp 24 B/P (MAP) 110/59 (76) 135/68 (90) 112/61 (78) Pulse Ox 96 97 95 O2 Delivery Mechanical Ventilator FiO2 60 60 09/26/20 09/26/20 09/26/20 09/26/20 20:15 20:15 20:30 20:45 Temp 100.0 100.0 Pulse 102 102 96 104 Resp 24 B/P (MAP) 123/71 (88) 115/61 (79) 153/76 (101) Pulse Ox 98 98 93 97 O2 Delivery Mechanical Ventilator FiO2 70 60 09/26/20 09/26/20 09/26/20 09/26/20 21:00 21:15 21:30 21:45 Temp 99.9 99.9 99.9 99.9 Pulse 105 106 105 105 Resp 24 B/P (MAP) 125/67 (86) 133/67 (89) 125/66 (85) 130/65 (86) 138/69 (92) 132/67 (88) Pulse Ox 95 95 95 96 09/26/20 09/26/20 09/26/20 09/26/20 22:00 22:00 22:15 22:30 Temp 99.9 99.7 99.7 Pulse 103 99 103 104 Resp 24 B/P (MAP) 130/64 (86) 134/70 (91) 116/67 (83) 134/68 (90) 105/55 (72) Pulse Ox 97 95 96 97 FiO2 60 09/26/20 09/26/20 09/26/20 09/26/20 22:45 23:00 23:15 23:30 Temp 99.5 99.5 99.5 99.5 Pulse 103 102 101 100 Resp 24 B/P (MAP) 118/61 (80) 128/75 (92) 121/63 (82) 125/66 (85) 115/62 (79) 115/60 (78) Pulse Ox 98 98 97 96 09/26/20 09/27/20 09/27/20 09/27/20 23:45 00:00 00:00 00:00 Temp 99.5 Pulse 100 96 Resp B/P (MAP) 119/62 (81) Pulse Ox 94 97 O2 Delivery Mechanical Ventilator Mechanical Ventilator FiO2 60 60 09/27/20 09/27/20 09/27/20 09/27/20 00:00 00:15 00:15 00:30 Temp 99.5 99.5 99.5 Pulse 102 102 100 99 Resp B/P (MAP) 120/71 (87) 117/62 (80) 125/63 (83) 123/64 (83) 138/73 (94) Pulse Ox 97 99 95 94 FiO2 60 09/27/20 09/27/20 09/27/20 09/27/20 00:45 01:00 01:01 01:02 Temp 99.5 99.5 99.5 99.5 Pulse 97 99 100 100 Resp B/P (MAP) 124/68 (86) 97/38 (57) 92/35 (54) 89/40 (56) 104/57 (73) 94/56 (69) 93/55 (68) Pulse Ox 93 92 93 93 O2 Delivery Vent 09/27/20 09/27/20 09/27/20 09/27/20 01:15 01:30 01:45 01:46 Temp 99.3 99.1 99.1 99.1 Pulse 99 99 100 100 Resp B/P (MAP) 109/59 (76) 101/48 (65) 124/48 (73) 128/57 (80) 110/59 (76) 111/56 (74) 128/64 (85) Pulse Ox 95 93 92 92 09/27/20 09/27/20 09/27/20 09/27/20 02:00 02:15 02:30 02:45 Temp 99.1 99.3 99.5 99.7 Pulse 101 104 98 101 Resp B/P (MAP) 108/55 (72) 130/61 (84) 121/55 (77) 118/63 (81) 120/58 (78) 137/70 (92) Pulse Ox 93 91 96 96 09/27/20 09/27/20 09/27/20 09/27/20 03:00 03:15 03:30 03:45 Temp 99.9 100.0 100.2 100.2 Pulse 99 98 100 100 Resp 24 B/P (MAP) 101/70 (80) 130/68 (88) 119/65 (83) 128/69 (88) 130/68 (88) 131/68 (89) Pulse Ox 95 96 95 96 O2 Delivery Vent 09/27/20 09/27/20 09/27/20 09/27/20 04:00 04:00 04:00 04:00 Temp 100.4 Pulse 96 100 Resp 24 B/P (MAP) 130/66 (87) 133/71 (91) Pulse Ox 97 96 O2 Delivery Mechanical Ventilator Mechanical Ventilator FiO2 60 60 09/27/20 09/27/20 09/27/20 09/27/20 04:15 04:15 04:30 04:45 Temp 100.6 100.6 100.6 Pulse 107 105 103 106 Resp 24 B/P (MAP) 131/70 (90) 117/66 (83) 48/0 (16) Pulse Ox 94 96 96 95 FiO2 70 09/27/20 09/27/20 09/27/20 09/27/20 04:55 04:55 04:55 05:00 Temp 100.6 Pulse 96 106 Resp 24 B/P (MAP) 115/66 (82) 118/51 (73) Pulse Ox 97 93 O2 Delivery Mechanical Ventilator Mechanical Ventilator FiO2 70 70 09/27/20 09/27/20 09/27/20 09/27/20 05:15 05:30 05:45 06:00 Temp 100.8 100.8 100.8 100.8 Pulse 107 106 104 102 Resp 24 B/P (MAP) 108/50 (69) 119/73 (88) 104/50 (68) 119/85 (96) 114/54 (74) 136/61 (86) Pulse Ox 95 95 95 80 09/27/20 09/27/20 09/27/20 09/27/20 06:15 06:30 06:33 07:00 Temp 100.6 100.4 100.4 100.4 Pulse 100 100 101 102 Resp 24 28 B/P (MAP) 135/61 (85) 131/37 (68) 122/40 (67) 122/39 (66) 131/60 (83) 124/57 (79) 131/60 (83) Pulse Ox 100 98 98 98 09/27/20 09/27/20 09/27/20 09/27/20 07:15 07:30 07:45 07:59 Temp 100.6 100.6 100.8 Pulse 102 102 102 102 Resp B/P (MAP) 139/62 (87) 128/39 (68) 137/62 (87) 137/61 (86) Pulse Ox 97 98 97 98 O2 Delivery Mechanical Ventilator FiO2 70 09/27/20 09/27/20 09/27/20 09/27/20 08:00 08:00 08:00 08:00 Pulse 103 114 Resp Pulse Ox 98 94 O2 Delivery Mechanical Ventilator Mechanical Ventilator FiO2 60 60 60 09/27/20 09/27/20 09/27/20 09/27/20 08:00 08:15 08:30 08:45 Temp 100.8 100.9 101.1 100.9 Pulse 103 103 102 107 Resp B/P (MAP) 144/47 (79) 134/61 (85) 120/50 (73) 179/76 (110) 138/63 (88) 136/61 (86) Pulse Ox 97 95 95 94 09/27/20 09/27/20 09/27/20 09/27/20 09:00 09:15 09:30 09:45 Temp 100.9 101.1 101.1 101.1 Pulse 109 112 115 113 Resp B/P (MAP) 143/49 (80) 155/65 (95) 145/61 (89) 137/58 (84) 151/68 (95) Pulse Ox 95 94 93 93 09/27/20 09/27/20 09/27/20 09/27/20 10:00 10:14 10:15 10:30 Temp 101.3 101.1 101.1 Pulse 111 110 108 106 Resp B/P (MAP) 125/43 (70) 143/62 (89) 128/58 (81) 136/59 (84) Pulse Ox 94 95 95 95 FiO2 60 09/27/20 09/27/20 09/27/20 09/27/20 10:45 11:00 11:15 11:30 Temp 100.9 100.6 100.4 100.2 Pulse 105 104 103 102 Resp B/P (MAP) 119/56 (77) 115/43 (67) 121/57 (78) 119/56 (77) 121/57 (78) Pulse Ox 97 98 98 98 09/27/20 09/27/20 09/27/20 09/27/20 11:45 12:00 12:00 12:00 Temp 100.0 99.9 Pulse 102 101 Resp B/P (MAP) 125/59 (81) 121/48 (72) 123/59 (80) Pulse Ox 98 99 O2 Delivery Mechanical Ventilator Mechanical Ventilator FiO2 60 09/27/20 09/27/20 09/27/20 09/27/20 12:00 12:15 12:30 12:45 Temp 99.5 99.5 99.5 Pulse 96 100 103 103 Resp B/P (MAP) 132/62 (85) 148/62 (90) 158/67 (97) Pulse Ox 99 98 98 96 FiO2 60 09/27/20 09/27/20 09/27/20 09/27/20 13:00 13:15 13:30 13:45 Temp 99.3 99.5 99.5 99.3 Pulse 102 102 101 99 Resp B/P (MAP) 132/50 (77) 147/63 (91) 151/63 (92) 140/61 (87) 139/61 (87) Pulse Ox 98 96 96 96 09/27/20 09/27/20 09/27/20 09/27/20 14:00 14:15 14:27 14:30 Temp 99.3 99.1 99.1 Pulse 98 96 96 97 Resp B/P (MAP) 137/53 (81) 143/63 (89) 133/61 (85) 139/61 (87) Pulse Ox 97 97 97 97 FiO2 60 09/27/20 09/27/20 09/27/20 09/27/20 14:45 15:00 15:15 15:30 Temp 99.1 99.1 99.1 99.1 Pulse 96 97 97 97 Resp B/P (MAP) 139/63 (88) 120/60 (80) 136/64 (88) 143/65 (91) 140/63 (88) Pulse Ox 98 98 98 97 09/27/20 09/27/20 09/27/20 09/27/20 15:45 16:00 16:00 16:00 Temp 99.1 99.1 Pulse 99 102 100 Resp B/P (MAP) 140/67 (91) 127/65 (85) 149/65 (93) Pulse Ox 96 95 95 O2 Delivery Mechanical Ventilator FiO2 60 60 09/27/20 09/27/20 09/27/20 09/27/20 16:00 16:15 16:30 16:45 Temp 99.3 99.5 99.7 Pulse 101 103 102 Resp B/P (MAP) 151/65 (93) 149/60 (89) 125/53 (77) Pulse Ox 95 95 91 O2 Delivery Mechanical Ventilator 09/27/20 09/27/20 09/27/20 09/27/20 17:00 17:00 17:15 17:30 Temp 99.7 99.9 99.9 Pulse 108 103 103 108 Resp B/P (MAP) 131/74 (93) 138/61 (86) 158/63 (94) 120/51 (74) Pulse Ox 92 92 100 93 FiO2 60 09/27/20 09/27/20 09/27/20 09/27/20 17:45 18:00 18:15 19:00 Temp 100.2 100.6 100.6 101.1 Pulse 105 112 112 112 Resp B/P (MAP) 129/53 (78) 140/87 (104) 163/58 (93) 113/65 (81) 167/60 (95) 107/48 (67) Pulse Ox 93 88 92 97 O2 Delivery Vent 09/27/20 09/27/20 09/27/20 09/27/20 19:15 19:30 19:45 20:00 Temp 101.1 100.9 100.9 Pulse 112 114 112 Resp B/P (MAP) 110/49 (69) 112/50 (70) 121/52 (75) Pulse Ox 97 97 97 O2 Delivery Mechanical Ventilator 09/27/20 09/27/20 09/27/20 09/27/20 20:00 20:00 20:00 20:15 Temp 100.9 100.9 Pulse 112 113 112 Resp B/P (MAP) 120/76 (91) 122/53 (76) 143/58 (86) Pulse Ox 94 97 97 O2 Delivery Mechanical Ventilator FiO2 65 65 09/27/20 09/27/20 09/27/20 09/27/20 20:30 20:30 20:30 20:45 Temp 100.9 100.9 Pulse 117 117 114 117 Resp B/P (MAP) 118/52 (74) 154/61 (92) Pulse Ox 96 96 96 92 O2 Delivery Mechanical Ventilator FiO2 65 60 09/27/20 09/27/20 09/27/20 09/27/20 21:00 21:15 21:30 21:45 Temp 100.9 100.9 100.9 100.9 Pulse 119 121 119 117 Resp B/P (MAP) 114/63 (80) 115/51 (72) 116/53 (74) 115/52 (73) 110/49 (69) Pulse Ox 92 93 96 97 09/27/20 09/27/20 09/27/20 09/27/20 22:00 22:15 22:30 22:45 Temp 100.9 100.9 101.1 101.1 Pulse 116 116 116 117 Resp B/P (MAP) 113/64 (80) 126/56 (79) 131/56 (81) 140/56 (84) 119/54 (75) Pulse Ox 97 97 96 97 09/27/20 09/27/20 09/27/20 09/28/20 22:49 23:00 23:02 00:00 Temp 101.3 101.3 101.5 Pulse 123 118 126 Resp B/P (MAP) 132/80 (97) 150/86 (107) 149/81 (103) 175/68 (103) 191/82 (118) 181/77 (111) Pulse Ox 93 91 95 O2 Delivery Mechanical Ventilator FiO2 70 09/28/20 09/28/20 09/28/20 09/28/20 00:00 00:00 00:15 00:30 Temp 102.0 101.8 Pulse 112 130 133 Resp B/P (MAP) 179/64 (102) 185/64 (104) Pulse Ox 92 91 88 O2 Delivery Mechanical Ventilator FiO2 70 09/28/20 09/28/20 09/28/20 09/28/20 00:45 00:45 00:59 01:00 Temp 101.7 101.3 101.1 Pulse 120 136 135 135 Resp B/P (MAP) 235/81 (132) 177/95 (122) 144/77 (99) 228/81 (130) 225/80 (128) Pulse Ox 92 97 95 95 FiO2 70 09/28/20 09/28/20 09/28/20 09/28/20 01:15 01:30 01:36 01:45 Temp 100.8 100.2 99.5 99.5 Pulse 125 117 116 114 Resp B/P (MAP) 203/74 (117) 171/64 (99) 139/71 (93) 168/64 (98) 169/63 (98) Pulse Ox 94 96 96 96 09/28/20 09/28/20 09/28/20 09/28/20 02:00 02:15 02:30 02:33 Temp 99.3 99.1 99.1 99.1 Pulse 111 110 111 110 Resp B/P (MAP) 142/73 (96) 171/66 (101) 158/65 (96) 135/74 (94) 170/66 (100) 155/64 (94) Pulse Ox 96 96 93 93 O2 Delivery Vent 09/28/20 09/28/20 09/28/20 09/28/20 02:45 03:00 03:30 03:45 Temp 99.1 99.0 99.0 99.0 Pulse 108 106 104 103 Resp B/P (MAP) 158/66 (96) 138/72 (94) 149/64 (92) 151/65 (93) 144/62 (89) Pulse Ox 95 96 97 95 09/28/20 09/28/20 09/28/20 09/28/20 04:00 04:00 04:00 04:00 Temp 99.0 Pulse 106 112 Resp B/P (MAP) 115/78 (90) 160/67 (98) Pulse Ox 96 92 O2 Delivery Mechanical Ventilator Mechanical Ventilator FiO2 70 70 09/28/20 09/28/20 09/28/20 09/28/20 04:15 04:30 04:30 04:45 Temp 99.0 99.1 99.0 Pulse 107 101 105 104 Resp B/P (MAP) 147/62 (90) 136/64 (88) Pulse Ox 95 98 97 99 FiO2 70 09/28/20 09/28/20 09/28/20 09/28/20 04:59 05:00 05:15 05:27 Temp 98.8 98.9 98.6 Pulse 102 103 103 Resp B/P (MAP) 121/57 (78) 145/63 (90) 150/59 (89) 147/61 (89) Pulse Ox 98 99 98 96 09/28/20 09/28/20 09/28/20 09/28/20 05:30 05:45 05:55 05:58 Temp 98.8 99.0 99.1 99.1 Pulse 101 100 102 102 Resp B/P (MAP) 141/58 (85) 131/53 (79) 124/52 (76) 133/54 (80) Pulse Ox 97 98 97 97 09/28/20 09/28/20 09/28/20 09/28/20 06:00 06:00 06:15 06:30 Temp 99.1 99.1 99.3 99.5 Pulse 100 100 102 101 Resp 24 B/P (MAP) 126/57 (80) 126/57 (80) 142/59 (86) 117/53 (74) 130/53 (78) 130/53 (78) Pulse Ox 96 96 98 98 09/28/20 09/28/20 09/28/20 09/28/20 06:45 08:00 08:00 08:00 Temp 99.5 Pulse 101 104 112 Resp 24 B/P (MAP) 142/58 (86) Pulse Ox 97 94 92 O2 Delivery Mechanical Ventilator FiO2 70 70 70 09/28/20 09/28/20 09/28/20 09/28/20 08:00 08:20 08:22 09:00 Temp 100.6 Pulse 108 106 110 Resp B/P (MAP) 141/78 (99) 178/65 (102) Pulse Ox 98 97 95 O2 Delivery Mechanical Ventilator Mechanical Ventilator FiO2 65 65 1/09/28/20 09/28/20 09/28/20 09:15 09:30 09:45 10:00 Temp 100.6 100.8 100.9 101.1 Pulse 113 116 111 113 Resp B/P (MAP) 186/61 (102) 204/70 (114) 145/55 (85) 118/58 (78) 121/49 (73) Pulse Ox 93 92 93 96 09/28/20 09/28/20 09/28/20 09/28/20 10:15 10:30 10:45 10:55 Temp 100.9 100.8 100.4 Pulse 108 105 101 100 Resp B/P (MAP) 89/43 (58) 82/47 (59) 94/45 (61) 80/41 (54) Pulse Ox 97 98 98 97 FiO2 70 09/28/20 09/28/20 09/28/20 09/28/20 11:00 11:15 11:30 11:45 Temp 100.0 99.7 99.3 99.1 Pulse 98 97 94 91 Resp B/P (MAP) 98/53 (68) 113/50 (71) 112/50 (70) 114/50 (71) 113/50 (71) Pulse Ox 97 98 97 99 09/28/20 09/28/20 09/28/20 09/28/20 12:00 12:00 12:00 12:00 Temp 99.0 Pulse 88 89 Resp B/P (MAP) 104/59 (74) 127/53 (77) Pulse Ox 98 99 O2 Delivery Mechanical Ventilator Mechanical Ventilator FiO2 70 70 09/28/20 09/28/20 09/28/20 09/28/20 12:15 12:30 12:45 13:00 Temp 98.6 98.2 98.1 98.1 Pulse 88 89 94 93 Resp B/P (MAP) 108/49 (68) 93/43 (60) 149/55 (86) 86/46 (59) 102/44 (63) Pulse Ox 99 99 97 99 09/28/20 09/28/20 09/28/20 09/28/20 13:15 13:30 13:45 14:00 Temp 98.1 98.2 98.1 98.1 Pulse 92 89 88 88 Resp B/P (MAP) 114/46 (68) 110/48 (68) 99/46 (63) 100/54 (69) 107/48 (67) Pulse Ox 99 99 99 100 09/28/20 09/28/20 09/28/20 09/28/20 14:15 14:30 14:36 14:45 Temp 98.1 98.1 97.9 Pulse 87 88 88 89 Resp B/P (MAP) 119/51 (73) 125/52 (76) 127/51 (76) Pulse Ox 99 99 98 98 FiO2 70 09/28/20 09/28/20 09/28/20 09/28/20 15:00 15:15 15:30 15:45 Temp 98.1 98.1 98.2 98.2 Pulse 89 88 92 92 Resp B/P (MAP) 111/59 (76) 133/54 (80) 136/53 (80) 133/53 (79) 129/52 (77) Pulse Ox 98 99 97 96 09/28/20 09/28/20 09/28/20 09/28/20 16:00 16:00 16:00 16:00 Pulse 94 99 Resp B/P (MAP) 129/74 (92) 166/64 (98) Pulse Ox 98 93 O2 Delivery Mechanical Ventilator Mechanical Ventilator FiO2 70 70 09/28/20 09/28/20 09/28/20 09/28/20 16:15 16:30 16:45 17:00 Temp 98.8 98.8 98.8 98.6 Pulse 98 94 92 92 Resp B/P (MAP) 141/57 (85) 120/52 (74) 109/50 (69) 111/56 (74) 108/49 (68) Pulse Ox 96 99 98 99 09/28/20 09/28/20 09/28/20 09/28/20 17:15 17:30 17:34 17:45 Temp 98.6 98.6 98.4 Pulse 92 92 92 90 Resp B/P (MAP) 122/52 (75) 123/53 (76) 117/50 (72) Pulse Ox 100 96 98 96 FiO2 70 09/28/20 18:00 Temp 98.4 Pulse 90 Resp 30 B/P (MAP) 97/53 (68) 113/50 (71) Pulse Ox 99 Intake and Output 09/28/20 07:00 Intake Total 4190 ml Output Total 3700 ml Balance 490 ml VTE VTE Risk Total Score: 2 VTE Risk Score VTE Risk: Score 0-1 = Low Risk (Aggressive mobilization; early ambulation; no VTE prophylaxis required) Score 2: Moderate Risk (Intermittent/Pneumatic Compression Device OR Lovenox/Heparin/Coumadin) Score 3-4: High Risk (Intermittent/Pneumatic Compression Device AND Lovenox/Heparin/Coumadin) Score > or =5: Highest Risk (Intermittent/Pneumatic Compression Device AND Lovenox/Heparin/Coumadin) Antico:Hep/LMWH/Coum/Xarelto: Yes Mechanical device ordered: Yes VTE VTE Present on Admission: No Currently receiving anticoagul: No VTE Risk Total Score: 2 Antico:Hep/LMWH/Coum/Xarelto: Yes Mechanical device ordered: Yes Assessment/Plan Assessment/Plan Plan A 64 y.o. male w HTN, HLD, DM II, who was admitted on Sep 03 for respiratory failure due to COVID; now intubated, and having febrile episodes since past few days along with increased FiO2 dependency. ASSESSMENT: -acute hypoxemic resp failure. intubated since 09/13 -COVID pneumonia diagnosed on 09/05. s/p Remdesevir and Steroids. -Fever at least since 09/23. likely due to VAP. Enterobacter spp isolated from resp culture which is Ceftriaxone resistance, and for all practical purposes will confer class resistance against all cephalosporins. -Leukocytosis due to above. -CRP is showing up agrawal trend -CXR persistent infiltrates noted. -Procalcitonin elevated. -severe sepsis. intermittent levophed dependent. -mild eosinophilia noted -elevated D dimer. patient already on therapeutic Lovenox. RECOMMENDATION: -if B cx remain negative then stop Vancomycin tomorrow. -switch Cefepime to Meropenem 1 gm iv q8 for 7 days. EOT 10/06 -recheck CRP, LDH, Ferritin. 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 Thanks for the consult please call me with any questions Amy Zhou MD Infectious Diseases we will sign off AMY ZHOU MD Sep 28, 2020 20:15
--- NOTE | 2020-09-28 20:19 | NUR ---
VANCOMYCIN TROUGH LEVEL [address] SHERMAN. RELAYED VANC TROUGH RESULT. RECEIVED ORDER TO HOLD VANCOMYCIN DOSE TONIGHT AND HAVE PHARMACY RECALCULATE APPROPRIATE DOSE IN THE MORNING. RBTO.
--- NOTE | 2020-09-28 20:39 | NUR ---
MEROPENEM RECEIVED TELEPHONE CALL FROM DR ZHOU WITH RECOMMENDATION TO DISCONTINUE CEFEPIME AND START PATIENT ON MEROPENEM 1G IVQ8 FOR 7 DAYS. RELAYED THIS INFORMATION TO DR SHERMAN. RECEIVED ORDER FROM DR SHERMAN TO CARRYOUT DR ZHOU'S RECOMMENDATIONS IS. RBTO.
[2020-09-29] VITALS (64 sets, daily range): BP systolic 88–188; BP diastolic 42–90
[2020-09-29] MEDS ORDERED: NS 100ML 100 ML IV ONE (00:43)
[2020-09-29 05:19] LABS: MEAN CORP HGB 28.9 pg (26-34); RED CELL DISTRIBUTION WIDTH 13.7 % (11.5-14.5)
[2020-09-29] MEDS: HUMALOG SQ SCH ×5 (06:00→23:53)
[2020-09-29 06:10] LABS: CALCIUM 8.3 mg/dL (8.4-10.5); CARBON DIOXIDE 32.2 mmol/L (20.0-32)
[2020-09-29] MEDS: NS IV SCH ×2 (06:41→13:17)
[2020-09-29] MEDS: SUBLIMAZE IV SCH ×2 (06:41→13:17)
[2020-09-29 07:34] LABS: ABG PCO2 46.8 mmHg (35.0-45.0); BE(B) 1.5 mmol/L (-2.0-2.0); HCO3act 27.1 mmol/L (22.0-26.0); pO2 90.2 mmHg (80.0-100.0)
[2020-09-29] MEDS ORDERED: NS 500ML 500 ML IV ONE (07:44)
[2020-09-29] MEDS: LASIX IV SCH (08:00)
[2020-09-29] MEDS: MERREM 1,000 MG in NS 100ML 100 ML IV SCH ×4 (08:00→23:06)
[2020-09-29] MEDS: SEROQUEL PO SCH ×2 (08:01→21:00)
[2020-09-29] MEDS: PROTONIX IV IV SCH (08:01)
[2020-09-29] MEDS: ZINC SULFATE PO SCH ×2 (08:05→21:00)
[2020-09-29] MEDS: VITAMIN C PO SCH ×2 (08:05→21:00)
[2020-09-29] MEDS: LOVENOX SQ SCH ×2 (08:05→21:00)
[2020-09-29] MEDS: CEPHULAC NG SCH (08:06)
[2020-09-29] MEDS: COLACE PO SCH ×2 (08:07→21:00)
[2020-09-29] MEDS: DIPRIVAN IV SCH ×3 (09:51→19:11)
--- NOTE | 2020-09-29 09:51 | DIREP ---
PROCEDURE:CHEST 1 VIEW COMPARISON:[facility], CR, XRAY CHEST SINGLE VW, 09/28/2020, 06:11 AM. INDICATIONS:PNEUMONIA FINDINGS: LUNGS/PLEURA:The ET tube is about 4.5 cm from the saurabh. NG tube projects over the esophagus, tip likely in the distal stomach. Right-sided PICC line, tip in the superior vena cava. The expansion of the lungs is slightly shallow. The infiltrates in the mid and lower lungs appear much more dense and confluent indicating worsening. No pneumothorax or pneumomediastinum is seen. VASCULATURE:Vascularity obscured by the overlying infiltrates. CARDIAC:Normal. No cardiac silhouette abnormality or cardiomegaly. MEDIASTINUM:Normal. No visible mass or adenopathy. BONES:Normal. No fracture or visible bony lesion. OTHER:Negative. CONCLUSION:Worsening of the infiltrates in both the lungs with infiltrates being more dense and confluent. Stable appearance of the ET tube, NG tube and the right-sided central line. No pneumothorax or pneumomediastinum is seen. Dictated by: Julio Napier MD on 09/29/2020 at 09:49 AM
[2020-09-29] MEDS ORDERED: NS 1000ML 1,000 ML ONE (10:28)
[2020-09-29] MEDS: VANCOMYCIN HCL 1 GM in NS 250ML 250 ML IV SCH ×2 (10:30→22:00)
--- NOTE | 2020-09-29 12:46 | TELE.CONS ---
Consultation Reason for Consult: Reason for Consultation: COVID PNA History of Present Illness History of Patient Comments THe pt is intubated and sedated. He is down on FIo2 and no longer febrile since switch to meropenem. Review of Systems Constitutional: Weakness; No: Fever, Chills, Sweats, Malaise, Other Eyes: No: Pain, Vision change, Conjunctivae inflammation, Eyelid inflammation, Other, Redness ENT: No: Ear pain, Ear discharge, Nose pain, Nose discharge, Nose congestion, Mouth pain, Mouth swelling, Throat pain, Throat swelling, Other Respiratory: Shortness of breath Cardiovascular: No: Chest Pain, Palpitations, Orthopnea, Paroxysmal Noc. Dyspnea, Edema, Lt Headedness, Other Gastrointestinal: No: Nausea, Vomiting, Abdominal Pain, Diarrhea, Constipation, Melena, Hematochezia, Other Genitourinary: No Dysuria, No Frequency, No Incontinence, No Hematuria, No Retention, No Other Musculoskeletal: No: other, neck pain, shoulder pain, arm pain, back pain, hand pain, leg pain, foot pain Skin: No: Rash, Lesions, Jaundice, Bruising, Other Allergies: Coded Allergies: No Known Allergies (Unverified , 09/03/20) Scheduled Lisinopril (Lisinopril), 1 TAB PO BID, (Reported) Metformin Hcl (Metformin Hcl), 1,000 MG PO BID, (Reported) VITALS REVIEW VITALS Vital Sign - Last 24 Hours 09/29/20 09/29/20 09/29/20 09/29/20 07:00 07:15 07:30 07:30 Temp 99.0 99.0 99.0 Pulse 88 89 88 88 Resp 28 B/P (MAP) 98/55 (69) 107/49 (68) 106/51 (69) 107/48 (67) Pulse Ox 100 100 100 100 FiO2 70 09/29/20 09/29/20 09/29/20 09/29/20 07:35 07:45 08:00 08:00 Temp 99.0 99.1 Pulse 88 87 92 94 Resp 24 29 26 B/P (MAP) 99/49 (66) 117/74 (88) 144/61 (88) Pulse Ox 100 100 100 97 FiO2 70 70 09/29/20 09/29/20 08:00 10:47 Pulse 90 Resp 30 29 Pulse Ox 99 O2 Delivery Mechanical Ventilator FiO2 70 70 Intake and Output 09/29/20 06:00 Intake Total 3579.53 ml Output Total 2595 ml Balance 984.53 ml LABS LAB RESULTS Laboratory Tests Test 09/03/20 18:04 09/03/20 18:37 09/03/20 21:02 09/04/20 04:47 Bedside Glucose 104 164 Nasal Adenovirus (PCR) NotDetected Nasal Coronavirus Type 229E (PCR) NotDetected Nasal Coronavirus Type HKU1 (PCR) NotDetected Nasal Coronavirus Type NL63 (PCR) NotDetected Nasal Coronavirus Type OC43 (PCR) NotDetected Nasal Enterovirus/Rhinovirus (PCR) NotDetected Nasal Influenza Type A (H1) (PCR) NotDetected Nasal Influenza Type A (H3) (PCR) NotDetected Nasal Swab Influenza Virus B (PCR) NotDetected Nasal Parainfluenza Type 1 (PCR) NotDetected Nasal Parainfluenza Type 2 (PCR) NotDetected Nasal Parainfluenza Type 3 (PCR) NotDetected Nasal Parainfluenza Type 4 (PCR) NotDetected Nasal Resp Syncytial Virus (PCR) NotDetected Nasal Bordetella pertussis DNA (PCR NotDetected Nasal Chlamydophila pneumoniae (PCR NotDetected Nasal Human Metapneumovirus (PCR) NotDetected Nasal Mycoplasma pneumoniae (PCR) NotDetected Nasal SARS-CoV-2 (PCR) NotDetected Influenza Type A (H1N1/09) (PCR) NotDetected White Blood Count 8.1 10^3/uL Red Blood Count 4.89 10^6/uL Hemoglobin 14.2 g/dL Hematocrit 40.7 % Mean Corpuscular Volume 83.2 fL Mean Corpuscular Hemoglobin 29.0 pg Mean Corpuscular Hemoglobin Concent 34.9 g/dL Red Cell Distribution Width 12.0 % Platelet Count 185 10^3/uL Mean Platelet Volume 9.6 fL Neutrophils (%) (Auto) 83.5 % Lymphocytes (%) (Auto) 9.7 % Monocytes (%) (Auto) 6.0 % Neutrophils # (Auto) 6.8 10^3/uL Lymphocytes # (Auto) 0.79 10^3/uL1 Monocytes # (Auto) 0.5 10^3/uL Absolute Immature Granulocyte (auto 0.05 10^3 u/L Absolute Eosinophils (auto) 0.0 10^3/uL Immature Granulocytes % 0.60 % Eosinophils % 0.0 % Basophils % 0.2 % Basophils # 0.0 10^3/uL Sodium Level 132 mmol/L Potassium Level 3.6 mmol/L Chloride Level 97.0 mmol/L Carbon Dioxide Level 26.0 mmol/L Anion Gap 12.6 Blood Urea Nitrogen 21 mg/dL Creatinine 1.18 mg/dL Estimated GFR () 75.2 Est GFR (CKD-EPI)(Non-Afr Turkish) 62.1 BUN/Creatinine Ratio 17.0 Glucose Level 118 mg/dL Hemoglobin A1c 8.0 % Calcium Level 8.3 mg/dL Total Bilirubin 0.7 mg/dL Aspartate Amino Transf (AST/SGOT) 55 U/L Alanine Aminotransferase (ALT/SGPT) 37 U/L Alkaline Phosphatase 40 U/L Total Protein 6.5 g/dL Albumin 2.3 g/dL Globulin 4.2 Albumin/Globulin Ratio 0.547 Triglycerides Level 65 mg/dL Cholesterol Level 76 mg/dL LDL Cholesterol, Calculated 26.0 VLDL Cholesterol, Calculated 13.0 HDL Cholesterol 37 mg/dL Cholesterol Ratio (LDL/HDL) 0.7 Cholesterol/HDL Ratio [id number] Test 09/04/20 05:59 09/04/20 07:15 09/04/20 11:37 09/04/20 12:22 Bedside Glucose 120 123 159 D-Dimer 1.85 mg/L Troponin I < 0.02 ng/mL Pro-B-Type Natriuretic Peptide 97 pg/mL Test 09/04/20 16:36 09/04/20 20:39 09/04/20 20:54 09/05/20 00:10 Bedside Glucose 131 158 Procalcitonin 0.74 ng/mL Yeast/Fungal Identification Test 09/05/20 04:05 09/05/20 05:40 09/05/20 08:09 09/05/20 09:30 White Blood Count 8.7 10^3/uL Red Blood Count 4.49 10^6/uL Hemoglobin 13.2 g/dL Hematocrit 38.0 % Mean Corpuscular Volume 84.6 fL Mean Corpuscular Hemoglobin 29.4 pg Mean Corpuscular Hemoglobin Concent 34.7 g/dL Red Cell Distribution Width 12.0 % Platelet Count 226 10^3/uL Mean Platelet Volume 9.6 fL Neutrophils (%) (Auto) 83.5 % Lymphocytes (%) (Auto) 10.2 % Monocytes (%) (Auto) 5.5 % Neutrophils # (Auto) 7.3 10^3/uL Lymphocytes # (Auto) 0.89 10^3/uL1 Monocytes # (Auto) 0.5 10^3/uL Absolute Immature Granulocyte (auto 0.05 10^3 u/L Absolute Eosinophils (auto) 0.0 10^3/uL Immature Granulocytes % 0.60 % Eosinophils % 0.1 % Basophils % 0.1 % Basophils # 0.0 10^3/uL Sodium Level 136 mmol/L Potassium Level 3.5 mmol/L Chloride Level 103.0 mmol/L Carbon Dioxide Level 24.3 mmol/L Anion Gap 12.2 Blood Urea Nitrogen 20 mg/dL Creatinine 1.01 mg/dL Estimated GFR () 90.0 Est GFR (CKD-EPI)(Non-Afr Turkish) 74.4 BUN/Creatinine Ratio 19.0 Glucose Level 104 mg/dL Calcium Level 8.1 mg/dL Phosphorus Level 2.5 mg/dL Magnesium Level 2.2 mg/dL Total Bilirubin 0.5 mg/dL Aspartate Amino Transf (AST/SGOT) 46 U/L Alanine Aminotransferase (ALT/SGPT) 29 U/L Alkaline Phosphatase 38 U/L Total Protein 6.1 g/dL Albumin 2.1 g/dL Globulin 4.0 Albumin/Globulin Ratio 0.525 Bedside Glucose 99 95 Nasal Adenovirus (PCR) NotDetected Nasal Coronavirus Type 229E (PCR) NotDetected Nasal Coronavirus Type HKU1 (PCR) NotDetected Nasal Coronavirus Type NL63 (PCR) NotDetected Nasal Coronavirus Type OC43 (PCR) NotDetected Nasal Enterovirus/Rhinovirus (PCR) NotDetected Nasal Influenza Type A (H1) (PCR) NotDetected Nasal Influenza Type A (H3) (PCR) NotDetected Nasal Swab Influenza Virus B (PCR) NotDetected Nasal Parainfluenza Type 1 (PCR) NotDetected Nasal Parainfluenza Type 2 (PCR) NotDetected Nasal Parainfluenza Type 3 (PCR) NotDetected Nasal Parainfluenza Type 4 (PCR) NotDetected Nasal Resp Syncytial Virus (PCR) NotDetected Nasal Bordetella pertussis DNA (PCR NotDetected Nasal Chlamydophila pneumoniae (PCR NotDetected Nasal Human Metapneumovirus (PCR) NotDetected Nasal Mycoplasma pneumoniae (PCR) NotDetected Nasal SARS-CoV-2 (PCR) DETECTED Influenza Type A (H1N1/) (PCR) NotDetected Test 09/05/20 10:24 09/05/20 12:44 09/05/20 17:15 09/05/20 19:49 Erythrocyte Sedimentation Rate 78 mm/hr C-Reactive Protein 13.99 mg/dL Anti-Nuclear FA Antibody Screen Negative Anti-Nuclear Ab Homogeneous Pattern Anti-Nuclear Ab Nucleolar Pattern Anti-Nuclear Ab Speckled Pattern Anti-Nuclear Ab Centromere Pattern Anti-Nuclear Antibody Comment Cytoplasmic ANCA (c-ANCA) Antibody <1:20 titer Atypical p-ANCA <1:20 titer Perinuclear ANCA (p-ANCA) Antibody <1:20 titer HIV-1 Antibody NON-REACTIVE HIV-2 Antibody NON-REACTIVE Bedside Glucose 88 154 141 Test 09/06/20 04:09 09/06/20 05:29 09/06/20 11:39 09/06/20 16:09 White Blood Count 7.7 10^3/uL Red Blood Count 4.20 10^6/uL Hemoglobin 12.5 g/dL Hematocrit 35.4 % Mean Corpuscular Volume 84.3 fL Mean Corpuscular Hemoglobin 29.8 pg Mean Corpuscular Hemoglobin Concent 35.3 g/dL Red Cell Distribution Width 11.9 % Platelet Count 208 10^3/uL Mean Platelet Volume 10.4 fL Neutrophils (%) (Auto) 82.7 % Lymphocytes (%) (Auto) 8.5 % Monocytes (%) (Auto) 7.8 % Neutrophils # (Auto) 6.3 10^3/uL Lymphocytes # (Auto) 0.65 10^3/uL1 Monocytes # (Auto) 0.6 10^3/uL Absolute Immature Granulocyte (auto 0.04 10^3 u/L Absolute Eosinophils (auto) 0.0 10^3/uL Immature Granulocytes % 0.50 % Eosinophils % 0.1 % Basophils % 0.4 % Basophils # 0.0 10^3/uL Sodium Level 137 mmol/L Potassium Level 3.5 mmol/L Chloride Level 104.0 mmol/L Carbon Dioxide Level 23.9 mmol/L Anion Gap 12.6 Blood Urea Nitrogen 17 mg/dL Creatinine 0.94 mg/dL Estimated GFR () 97.8 Est GFR (CKD-EPI)(Non-Afr Turkish) 80.8 BUN/Creatinine Ratio 18.0 Glucose Level 181 mg/dL Calcium Level 8.0 mg/dL Phosphorus Level 3.2 mg/dL Magnesium Level 2.2 mg/dL Total Bilirubin 0.5 mg/dL Aspartate Amino Transf (AST/SGOT) 45 U/L Alanine Aminotransferase (ALT/SGPT) 28 U/L Alkaline Phosphatase 38 U/L Total Protein 5.9 g/dL Albumin 1.8 g/dL Globulin 4.1 Albumin/Globulin Ratio 0.439 Bedside Glucose 166 133 192 Test 09/06/20 19:56 09/07/20 05:22 09/07/20 07:46 09/07/20 10:47 Bedside Glucose 190 181 222 238 Test 09/07/20 17:34 09/07/20 17:36 09/07/20 18:20 09/07/20 18:59 Bedside Glucose 220 236 Blood Gas Sample Site RR Blood Gas pH 7.403 Blood Gas PCO2 30.6 mmHg Blood Gas PO2 62.4 mmHg Blood Gas HCO3 18.7 mmol/L Blood Gas Base Excess -4.8 mmol/L Abdi Test POSITIVE Arterial Blood Oxygen Saturation 92.1 % Deoxyhemoglobin 7.8 % Carboxyhemoglobin 0.7 % Methemoglobin 0.2 % Total Hemoglobin 14.6 % Total Oxygen Concentration 18.7 % Blood Gas Temperature 37.0 Oxygen Delivery Method (LAB) NON-REBREATHER MASK FiO2 100 % Total Carbon Dioxide 19.6 mmol/L Hemoglobin 14.0 g/dL Hematocrit 40.0 % Platelet Count 386 10^3/uL Prothrombin Time 11.2 SEC Prothrombin Time INR (Non-Therap) 1.1 Fibrinogen > 450 mg/dL Test 09/07/20 20:18 09/08/20 05:14 09/08/20 05:20 09/08/20 06:57 Bedside Glucose 226 204 White Blood Count 11.7 10^3/uL Red Blood Count 4.60 10^6/uL Hemoglobin 13.4 g/dL Hematocrit 38.5 % Mean Corpuscular Volume 83.7 fL Mean Corpuscular Hemoglobin 29.1 pg Mean Corpuscular Hemoglobin Concent 34.8 g/dL Red Cell Distribution Width 12.0 % Platelet Count 360 10^3/uL Mean Platelet Volume 9.7 fL Neutrophils (%) (Auto) 89.4 % Lymphocytes (%) (Auto) 4.8 % Monocytes (%) (Auto) 4.9 % Neutrophils # (Auto) 10.5 10^3/uL Lymphocytes # (Auto) 0.56 10^3/uL1 Monocytes # (Auto) 0.6 10^3/uL Absolute Immature Granulocyte (auto 0.08 10^3 u/L Absolute Eosinophils (auto) 0.0 10^3/uL Immature Granulocytes % 0.70 % Eosinophils % 0.0 % Basophils % 0.2 % Basophils # 0.0 10^3/uL D-Dimer 4.40 mg/L Sodium Level 139 mmol/L Potassium Level 3.4 mmol/L Chloride Level 108.0 mmol/L Carbon Dioxide Level 21.4 mmol/L Anion Gap 13.0 Blood Urea Nitrogen 22 mg/dL Creatinine 0.87 mg/dL Estimated GFR () 106.9 Est GFR (CKD-EPI)(Non-Afr Turkish) 88.3 BUN/Creatinine Ratio 25.0 Glucose Level 214 mg/dL Calcium Level 8.1 mg/dL Phosphorus Level 2.2 mg/dL Magnesium Level 2.2 mg/dL Ferritin 1364 ng/mL Total Bilirubin 0.3 mg/dL Aspartate Amino Transf (AST/SGOT) 44 U/L Alanine Aminotransferase (ALT/SGPT) 23 U/L Alkaline Phosphatase 45 U/L Lactate Dehydrogenase 300 U/L Total Creatine Kinase 48 U/L C-Reactive Protein 3.22 mg/dL Total Protein 5.9 g/dL Albumin 2.0 g/dL Globulin 3.9 Albumin/Globulin Ratio 0.512 Procalcitonin 0.29 ng/mL Segmented Neutrophils 95 % Lymphocytes 4 % Monocytes 1 % Platelet Estimate ADEQUATE Platelet Morphology NORMAL Test 09/08/20 07:39 09/08/20 11:31 09/08/20 16:25 09/08/20 20:15 Bedside Glucose 223 208 183 217 Test 09/09/20 05:05 09/09/20 06:31 09/09/20 07:23 09/09/20 07:39 Bedside Glucose 169 231 White Blood Count 11.5 10^3/uL Red Blood Count 4.52 10^6/uL Hemoglobin 13.1 g/dL Hematocrit 37.4 % Mean Corpuscular Volume 82.7 fL Mean Corpuscular Hemoglobin 29.0 pg Mean Corpuscular Hemoglobin Concent 35.0 g/dL Red Cell Distribution Width 12.0 % Platelet Count 367 10^3/uL Mean Platelet Volume 9.2 fL Neutrophils (%) (Auto) 87.0 % Lymphocytes (%) (Auto) 5.3 % Monocytes (%) (Auto) 7.0 % Neutrophils # (Auto) 10.0 10^3/uL Lymphocytes # (Auto) 0.61 10^3/uL1 Monocytes # (Auto) 0.8 10^3/uL Absolute Immature Granulocyte (auto 0.07 10^3 u/L Absolute Eosinophils (auto) 0.0 10^3/uL Immature Granulocytes % 0.60 % Eosinophils % 0.0 % Basophils % 0.1 % Basophils # 0.0 10^3/uL Sodium Level 141 mmol/L Potassium Level 3.9 mmol/L Chloride Level 109.0 mmol/L Carbon Dioxide Level 22.4 mmol/L Anion Gap 13.5 Blood Urea Nitrogen 22 mg/dL Creatinine 0.81 mg/dL Estimated GFR () 116.1 Est GFR (CKD-EPI)(Non-Afr Turkish) 95.9 BUN/Creatinine Ratio 27.0 Glucose Level 187 mg/dL Calcium Level 7.9 mg/dL Phosphorus Level 2.7 mg/dL Magnesium Level 2.0 mg/dL Total Bilirubin 0.4 mg/dL Aspartate Amino Transf (AST/SGOT) 32 U/L Alanine Aminotransferase (ALT/SGPT) 29 U/L Alkaline Phosphatase 44 U/L Total Protein 5.5 g/dL Albumin 2.0 g/dL Globulin 3.5 Albumin/Globulin Ratio 0.571 Segmented Neutrophils 91 % Lymphocytes 5 % Monocytes 4 % Platelet Estimate ADEQUATE Platelet Morphology NORMAL Test 09/09/20 11:15 09/09/20 16:50 09/09/20 19:54 09/10/20 04:26 Bedside Glucose 236 192 219 White Blood Count 11.8 10^3/uL Red Blood Count 4.77 10^6/uL Hemoglobin 13.8 g/dL Hematocrit 39.8 % Mean Corpuscular Volume 83.4 fL Mean Corpuscular Hemoglobin 28.9 pg Mean Corpuscular Hemoglobin Concent 34.7 g/dL Red Cell Distribution Width 12.3 % Platelet Count 361 10^3/uL Mean Platelet Volume 9.2 fL Neutrophils (%) (Auto) 84.0 % Lymphocytes (%) (Auto) 9.0 % Monocytes (%) (Auto) 4.8 % Neutrophils # (Auto) 9.9 10^3/uL Lymphocytes # (Auto) 1.06 10^3/uL1 Monocytes # (Auto) 0.6 10^3/uL Absolute Immature Granulocyte (auto 0.23 10^3 u/L Absolute Eosinophils (auto) 0.0 10^3/uL Immature Granulocytes % 2.00 % Eosinophils % 0.1 % Basophils % 0.1 % Basophils # 0.0 10^3/uL D-Dimer 8.09 mg/L Sodium Level 140 mmol/L Potassium Level 3.7 mmol/L Chloride Level 106.0 mmol/L Carbon Dioxide Level 27.2 mmol/L Anion Gap 10.5 Blood Urea Nitrogen 19 mg/dL Creatinine 0.96 mg/dL Estimated GFR () 95.4 Est GFR (CKD-EPI)(Non-Afr Turkish) 78.9 BUN/Creatinine Ratio 19.0 Glucose Level 100 mg/dL Calcium Level 7.9 mg/dL Phosphorus Level 2.4 mg/dL Magnesium Level 1.8 mg/dL Ferritin 1073 ng/mL Total Bilirubin 0.7 mg/dL Aspartate Amino Transf (AST/SGOT) 27 U/L Alanine Aminotransferase (ALT/SGPT) 29 U/L Alkaline Phosphatase 58 U/L Lactate Dehydrogenase 295 U/L Total Creatine Kinase 41 U/L C-Reactive Protein 3.25 mg/dL Total Protein 5.7 g/dL Albumin 2.0 g/dL Globulin 3.7 Albumin/Globulin Ratio 0.540 Procalcitonin 0.10 ng/mL Test 09/10/20 04:54 09/10/20 07:10 09/10/20 11:33 09/10/20 16:46 Bedside Glucose 93 134 173 178 Test 09/10/20 19:51 09/11/20 01:56 09/11/20 02:03 09/11/20 05:13 Bedside Glucose 169 159 145 Blood Gas Sample Site LB Blood Gas pH 7.398 Blood Gas PCO2 31.4 mmHg Blood Gas PO2 54.5 mmHg Blood Gas HCO3 18.9 mmol/L Blood Gas Base Excess -4.8 mmol/L Abdi Test POSITIVE Arterial Blood Oxygen Saturation 87.1 % Deoxyhemoglobin 12.9 % Carboxyhemoglobin 0.3 % Methemoglobin 0.0 % Total Hemoglobin 13.4 % Total Oxygen Concentration 16.3 % Blood Gas Temperature 37 Oxygen Delivery Method (LAB) NON-REBREATHER MASK FiO2 100 % Total Carbon Dioxide 19.9 mmol/L Test 09/11/20 05:14 09/11/20 05:41 09/11/20 07:35 09/11/20 07:50 White Blood Count 11.5 10^3/uL Red Blood Count 4.66 10^6/uL Hemoglobin 13.4 g/dL Hematocrit 39.1 % Mean Corpuscular Volume 83.9 fL Mean Corpuscular Hemoglobin 28.8 pg Mean Corpuscular Hemoglobin Concent 34.3 g/dL Red Cell Distribution Width 12.2 % Platelet Count 296 10^3/uL Mean Platelet Volume 9.2 fL Neutrophils (%) (Auto) 87.0 % Lymphocytes (%) (Auto) 5.9 % Monocytes (%) (Auto) 5.0 % Neutrophils # (Auto) 10.0 10^3/uL Lymphocytes # (Auto) 0.68 10^3/uL1 Monocytes # (Auto) 0.6 10^3/uL Absolute Immature Granulocyte (auto 0.23 10^3 u/L Absolute Eosinophils (auto) 0.0 10^3/uL Immature Granulocytes % 2.00 % Eosinophils % 0.0 % Basophils % 0.1 % Basophils # 0.0 10^3/uL Sodium Level 139 mmol/L Potassium Level 3.9 mmol/L Chloride Level 106.0 mmol/L Carbon Dioxide Level 23.2 mmol/L Anion Gap 13.7 Blood Urea Nitrogen 22 mg/dL Creatinine 0.88 mg/dL Estimated GFR () 105.5 Est GFR (CKD-EPI)(Non-Afr Turkish) 87.2 BUN/Creatinine Ratio 25.0 Glucose Level 151 mg/dL Calcium Level 8.3 mg/dL Phosphorus Level 3.1 mg/dL Magnesium Level 2.3 mg/dL Total Bilirubin 0.7 mg/dL Aspartate Amino Transf (AST/SGOT) 27 U/L Alanine Aminotransferase (ALT/SGPT) 23 U/L Alkaline Phosphatase 71 U/L Total Protein 5.7 g/dL Albumin 2.0 g/dL Globulin 3.7 Albumin/Globulin Ratio 0.540 Blood Gas Sample Site RT RADIAL ARTERY RR Blood Gas pH 7.405 7.398 Blood Gas PCO2 35.2 mmHg 36.1 mmHg Blood Gas PO2 53.5 mmHg 52.5 mmHg Blood Gas HCO3 21.6 mmol/L 21.8 mmol/L Blood Gas Base Excess -2.5 mmol/L -2.5 mmol/L Abdi Test POSITIVE POSITIVE Arterial Blood Oxygen Saturation 87.9 % 86.0 % Deoxyhemoglobin 12.1 % 13.9 % Carboxyhemoglobin 0 % 0.6 % Methemoglobin 0.1 % 0.3 % Total Hemoglobin 14.0 % 13.9 % Total Oxygen Concentration 17.3 % 16.6 % Blood Gas Temperature 37 37 Oxygen Delivery Method (LAB) NON-REBREATHER MASK NON-REBREATHER MASK FiO2 100 % 100 % Total Carbon Dioxide 22.6 mmol/L 22.9 mmol/L Bedside Glucose 133 Test 09/11/20 11:42 09/11/20 16:15 09/11/20 20:50 09/12/20 04:11 Bedside Glucose 185 175 201 White Blood Count 16.3 10^3/uL Red Blood Count 4.45 10^6/uL Hemoglobin 13.2 g/dL Hematocrit 37.1 % Mean Corpuscular Volume 83.4 fL Mean Corpuscular Hemoglobin 29.7 pg Mean Corpuscular Hemoglobin Concent 35.6 g/dL Red Cell Distribution Width 12.3 % Platelet Count 316 10^3/uL Mean Platelet Volume 9.2 fL Neutrophils (%) (Auto) 89.5 % Lymphocytes (%) (Auto) 3.9 % Monocytes (%) (Auto) 5.0 % Neutrophils # (Auto) 14.6 10^3/uL Lymphocytes # (Auto) 0.64 10^3/uL1 Monocytes # (Auto) 0.8 10^3/uL Absolute Immature Granulocyte (auto 0.24 10^3 u/L Absolute Eosinophils (auto) 0.0 10^3/uL Immature Granulocytes % 1.50 % Eosinophils % 0.0 % Basophils % 0.1 % Basophils # 0.0 10^3/uL Sodium Level 139 mmol/L Potassium Level 4.1 mmol/L Chloride Level 105.0 mmol/L Carbon Dioxide Level 26.4 mmol/L Anion Gap 11.7 Blood Urea Nitrogen 24 mg/dL Creatinine 0.82 mg/dL Estimated GFR () 114.5 Est GFR (CKD-EPI)(Non-Afr Turkish) 94.6 BUN/Creatinine Ratio 29.0 Glucose Level 144 mg/dL Calcium Level 8.3 mg/dL Total Bilirubin 0.6 mg/dL Aspartate Amino Transf (AST/SGOT) 24 U/L Alanine Aminotransferase (ALT/SGPT) 19 U/L Alkaline Phosphatase 69 U/L Total Protein 5.6 g/dL Albumin 2.0 g/dL Globulin 3.6 Albumin/Globulin Ratio 0.555 Test 09/12/20 05:21 09/12/20 07:14 09/12/20 11:45 09/12/20 15:44 Bedside Glucose 132 173 262 Blood Gas Sample Site RR Blood Gas pH 7.429 Blood Gas PCO2 33.6 mmHg Blood Gas PO2 47.2 mmHg Blood Gas HCO3 21.8 mmol/L Blood Gas Base Excess -1.7 mmol/L Abdi Test POSITIVE Arterial Blood Oxygen Saturation 82.7 % Deoxyhemoglobin 17.1 % Carboxyhemoglobin 0.9 % Methemoglobin 0.3 % Total Hemoglobin 15.0 % Total Oxygen Concentration 17.2 % Blood Gas Temperature 37 Oxygen Delivery Method (LAB) NON-REBREATHER MASK FiO2 100 % Total Carbon Dioxide 22.8 mmol/L Test 09/12/20 21:13 09/13/20 04:13 09/13/20 07:45 09/13/20 12:57 Bedside Glucose 202 195 White Blood Count 13.7 10^3/uL Red Blood Count 4.63 10^6/uL Hemoglobin 13.4 g/dL Hematocrit 38.7 % Mean Corpuscular Volume 83.6 fL Mean Corpuscular Hemoglobin 28.9 pg Mean Corpuscular Hemoglobin Concent 34.6 g/dL Red Cell Distribution Width 12.4 % Platelet Count 132 10^3/uL Mean Platelet Volume 10.4 fL Neutrophils (%) (Auto) 89.9 % Lymphocytes (%) (Auto) 4.0 % Monocytes (%) (Auto) 4.7 % Neutrophils # (Auto) 12.3 10^3/uL Lymphocytes # (Auto) 0.55 10^3/uL1 Monocytes # (Auto) 0.6 10^3/uL Absolute Immature Granulocyte (auto 0.18 10^3 u/L Absolute Eosinophils (auto) 0.0 10^3/uL Immature Granulocytes % 1.30 % Eosinophils % 0.0 % Basophils % 0.1 % Basophils # 0.0 10^3/uL D-Dimer 6.10 mg/L Sodium Level 134 mmol/L Potassium Level 3.9 mmol/L Chloride Level 101.0 mmol/L Carbon Dioxide Level 24.6 mmol/L Anion Gap 12.3 Blood Urea Nitrogen 21 mg/dL Creatinine 0.83 mg/dL Estimated GFR () 112.9 Est GFR (CKD-EPI)(Non-Afr Turkish) 93.3 BUN/Creatinine Ratio 25.0 Glucose Level 163 mg/dL Calcium Level 8.1 mg/dL Total Bilirubin 0.6 mg/dL Aspartate Amino Transf (AST/SGOT) 25 U/L Alanine Aminotransferase (ALT/SGPT) 18 U/L Alkaline Phosphatase 65 U/L Ammonia 32 umol/L Pro-B-Type Natriuretic Peptide 1380 pg/mL Total Protein 5.6 g/dL Albumin 1.9 g/dL Globulin 3.7 Albumin/Globulin Ratio 0.513 Blood Gas Sample Site RR Blood Gas pH 7.410 Blood Gas PCO2 47.1 mmHg Blood Gas PO2 55.4 mmHg Blood Gas HCO3 25.9 mmol/L Blood Gas Base Excess 1.1 mmol/L Abdi Test POSITIVE Arterial Blood Oxygen Saturation 87.4 % Deoxyhemoglobin 12.5 % Carboxyhemoglobin 0.8 % Methemoglobin 0.2 % Total Hemoglobin 13.9 % Total Oxygen Concentration 16.9 % Oxygen Delivery Method (LAB) BIPAP Blood Gas Vent Mode AVAPS Blood Gas Vent Rate 14 FiO2 100 % Blood Gas Tidal Volume 400 ML Blood Gas PEEP 8 CMH2O Total Carbon Dioxide 27.2 mmol/L Test 09/13/20 13:06 09/13/20 14:10 09/13/20 16:18 09/13/20 17:19 Blood Gas Sample Site RR Blood Gas pH 7.388 Blood Gas PCO2 52.0 mmHg Blood Gas PO2 52.0 mmHg Blood Gas HCO3 22.7 mmol/L Blood Gas Base Excess -1.9 mmol/L Abdi Test POSITIVE Arterial Blood Oxygen Saturation 83.6 % Carboxyhemoglobin 0 % Methemoglobin 0.2 % Total Hemoglobin 14.7 % Blood Gas Temperature 37 Oxygen Delivery Method (LAB) VENT Blood Gas Vent Mode ACVC Blood Gas Vent Rate 25 FiO2 100 % Blood Gas Tidal Volume 400 ML Blood Gas PEEP 6 CMH2O Total Carbon Dioxide 23.9 mmol/L Urine Collection Type UNKNOWN Urine Color YELLOW Urine Appearance CLEAR Urine Bilirubin NEGATIVE MG/DL Urine Ketones NEGATIVE Urine Specific [place] 1.010 Urine pH 6.5 Urine Protein NEGATIVE Urine Urobilinogen NORMAL Urine Nitrate NEGATIVE Urine Leukocyte Esterase NEGATIVE Urine Blood NEGATIVE Urine Glucose 100 Procalcitonin 0.26 ng/mL Bedside Glucose 243 Test 09/13/20 23:38 09/14/20 03:53 09/14/20 05:21 09/14/20 08:30 Bedside Glucose 137 184 White Blood Count 15.2 10^3/uL Red Blood Count 4.89 10^6/uL Hemoglobin 14.3 g/dL Hematocrit 41.5 % Mean Corpuscular Volume 84.9 fL Mean Corpuscular Hemoglobin 29.2 pg Mean Corpuscular Hemoglobin Concent 34.5 g/dL Red Cell Distribution Width 12.9 % Platelet Count 260 10^3/uL Mean Platelet Volume 10.3 fL Neutrophils (%) (Auto) 92.6 % Lymphocytes (%) (Auto) 3.0 % Monocytes (%) (Auto) 2.5 % Neutrophils # (Auto) 14.1 10^3/uL Lymphocytes # (Auto) 0.45 10^3/uL1 Monocytes # (Auto) 0.4 10^3/uL Absolute Immature Granulocyte (auto 0.27 10^3 u/L Absolute Eosinophils (auto) 0.0 10^3/uL Immature Granulocytes % 1.80 % Eosinophils % 0.0 % Basophils % 0.1 % Basophils # 0.0 10^3/uL Sodium Level 141 mmol/L Potassium Level 4.6 mmol/L Chloride Level 105.0 mmol/L Carbon Dioxide Level 24.2 mmol/L Anion Gap 16.4 Blood Urea Nitrogen 34 mg/dL Creatinine 1.14 mg/dL Estimated GFR () 78.3 Est GFR (CKD-EPI)(Non-Afr Turkish) 64.7 BUN/Creatinine Ratio 29.0 Glucose Level 179 mg/dL Calcium Level 8.2 mg/dL Total Bilirubin 0.6 mg/dL Aspartate Amino Transf (AST/SGOT) 19 U/L Alanine Aminotransferase (ALT/SGPT) 16 U/L Alkaline Phosphatase 61 U/L Total Protein 5.8 g/dL Albumin 2.0 g/dL Globulin 3.8 Albumin/Globulin Ratio 0.526 Blood Gas Sample Site RT RADIAL ARTERY Blood Gas pH 7.377 Blood Gas PCO2 39.9 mmHg Blood Gas PO2 55.2 mmHg Blood Gas HCO3 22.9 mmol/L Blood Gas Base Excess -2.0 mmol/L Abdi Test POSITIVE Arterial Blood Oxygen Saturation 85.5 % Deoxyhemoglobin 14.4 % Carboxyhemoglobin 0.7 % Methemoglobin 0.2 % Total Hemoglobin 15.1 % Total Oxygen Concentration 18.0 % Blood Gas Temperature 37 Oxygen Delivery Method (LAB) VENT Blood Gas Vent Mode ACVC Blood Gas Vent Rate 25 FiO2 100 % Blood Gas Tidal Volume 400 ML Blood Gas PEEP 10 CMH2O Total Carbon Dioxide 24.1 mmol/L Test 09/14/20 12:01 09/14/20 15:20 09/14/20 17:42 09/15/20 00:20 Bedside Glucose 201 232 283 Lactic Acid Level 1.3 mmol/L Test 09/15/20 04:09 09/15/20 05:49 09/15/20 05:50 09/15/20 08:02 White Blood Count 16.8 10^3/uL Red Blood Count 4.60 10^6/uL Hemoglobin 13.4 g/dL Hematocrit 39.6 % Mean Corpuscular Volume 86.1 fL Mean Corpuscular Hemoglobin 29.1 pg Mean Corpuscular Hemoglobin Concent 33.8 g/dL Red Cell Distribution Width 13.1 % Platelet Count 355 10^3/uL Mean Platelet Volume 9.9 fL Neutrophils (%) (Auto) 92.1 % Lymphocytes (%) (Auto) 2.5 % Monocytes (%) (Auto) 3.7 % Neutrophils # (Auto) 15.5 10^3/uL Lymphocytes # (Auto) 0.42 10^3/uL1 Monocytes # (Auto) 0.6 10^3/uL Absolute Immature Granulocyte (auto 0.28 10^3 u/L Absolute Eosinophils (auto) 0.0 10^3/uL Immature Granulocytes % 1.70 % Eosinophils % 0.0 % Basophils % 0.0 % Basophils # 0.0 10^3/uL Sodium Level 139 mmol/L Potassium Level 4.1 mmol/L Chloride Level 105.0 mmol/L Carbon Dioxide Level 23.9 mmol/L Anion Gap 14.2 Blood Urea Nitrogen 52 mg/dL Creatinine 1.34 mg/dL Estimated GFR () 64.9 Est GFR (CKD-EPI)(Non-Afr Turkish) 53.7 BUN/Creatinine Ratio 38.0 Glucose Level 305 mg/dL Calcium Level 7.1 mg/dL Total Bilirubin 0.4 mg/dL Aspartate Amino Transf (AST/SGOT) 17 U/L Alanine Aminotransferase (ALT/SGPT) 17 U/L Alkaline Phosphatase 65 U/L C-Reactive Protein 3.29 mg/dL Total Protein 5.6 g/dL Albumin 2.0 g/dL Globulin 3.6 Albumin/Globulin Ratio 0.555 Bedside Glucose 276 Segmented Neutrophils 98 % Lymphocytes 1 % Monocytes 1 % Platelet Estimate ADEQUATE Platelet Morphology NORMAL Blood Gas Sample Site ART LINE Blood Gas pH 7.335 Blood Gas PCO2 42.5 mmHg Blood Gas PO2 72.2 mmHg Blood Gas HCO3 22.2 mmol/L Blood Gas Base Excess -3.6 mmol/L Abdi Test POSITIVE Arterial Blood Oxygen Saturation 93.1 % Deoxyhemoglobin 6.8 % Carboxyhemoglobin 0.6 % Methemoglobin 0.3 % Total Hemoglobin 13.6 % Total Oxygen Concentration 17.7 % Blood Gas Temperature 37 Oxygen Delivery Method (LAB) VENT Blood Gas Vent Mode ACVC Blood Gas Vent Rate 25 FiO2 100 % Blood Gas Tidal Volume 400 ML Blood Gas PEEP 12 CMH2O Total Carbon Dioxide 23.5 mmol/L Test 09/15/20 11:39 09/15/20 15:05 09/15/20 17:08 09/15/20 20:08 Bedside Glucose 294 288 260 Procalcitonin 0.15 ng/mL Test 09/15/20 23:59 09/16/20 04:23 09/16/20 05:22 09/16/20 05:42 Bedside Glucose 284 278 White Blood Count 15.2 10^3/uL Red Blood Count 4.03 10^6/uL Hemoglobin 11.7 g/dL Hematocrit 35.3 % Mean Corpuscular Volume 87.6 fL Mean Corpuscular Hemoglobin 29.0 pg Mean Corpuscular Hemoglobin Concent 33.1 g/dL Red Cell Distribution Width 13.1 % Platelet Count 234 10^3/uL Mean Platelet Volume 10.2 fL Neutrophils (%) (Auto) 94.0 % Lymphocytes (%) (Auto) 1.8 % Monocytes (%) (Auto) 3.0 % Neutrophils # (Auto) 14.3 10^3/uL Lymphocytes # (Auto) 0.28 10^3/uL1 Monocytes # (Auto) 0.5 10^3/uL Absolute Immature Granulocyte (auto 0.16 10^3 u/L Absolute Eosinophils (auto) 0.0 10^3/uL Immature Granulocytes % 1.10 % Eosinophils % 0.0 % Basophils % 0.1 % Basophils # 0.0 10^3/uL D-Dimer 1.67 mg/L Sodium Level 140 mmol/L Potassium Level 4.9 mmol/L Chloride Level 107.0 mmol/L Carbon Dioxide Level 24.8 mmol/L Anion Gap 13.1 Blood Urea Nitrogen 50 mg/dL Creatinine 1.14 mg/dL Estimated GFR () 78.3 Est GFR (CKD-EPI)(Non-Afr Turkish) 64.7 BUN/Creatinine Ratio 43.0 Glucose Level 313 mg/dL Calcium Level 7.0 mg/dL Total Bilirubin 0.3 mg/dL Aspartate Amino Transf (AST/SGOT) 16 U/L Alanine Aminotransferase (ALT/SGPT) 16 U/L Alkaline Phosphatase 68 U/L Total Protein 4.9 g/dL Albumin 1.8 g/dL Globulin 3.1 Albumin/Globulin Ratio 0.580 Blood Gas Sample Site ART LINE Blood Gas pH 7.310 Blood Gas PCO2 46.1 mmHg Blood Gas PO2 61.6 mmHg Blood Gas HCO3 22.7 mmol/L Blood Gas Base Excess -3.7 mmol/L Abdi Test N/A Arterial Blood Oxygen Saturation 89.2 % Deoxyhemoglobin 10.7 % Carboxyhemoglobin 0.3 % Methemoglobin 0.3 % Total Hemoglobin 13.4 % Total Oxygen Concentration 16.7 % Blood Gas Temperature 37 Oxygen Delivery Method (LAB) VENT Blood Gas Vent Mode ACVC Blood Gas Vent Rate 25 FiO2 75 % Blood Gas Tidal Volume 400 ML Blood Gas PEEP 10 CMH2O Total Carbon Dioxide 24.1 mmol/L Test 09/16/20 06:16 09/16/20 12:17 09/16/20 13:15 09/16/20 17:13 Segmented Neutrophils 97 % Lymphocytes 1 % Monocytes 2 % Platelet Estimate ADEQUATE Platelet Morphology NORMAL Bedside Glucose 222 170 Procalcitonin 0.05 ng/mL Test 09/16/20 21:21 09/17/20 00:03 09/17/20 03:50 09/17/20 04:10 Bedside Glucose 186 221 235 White Blood Count 17.5 10^3/uL Red Blood Count 4.13 10^6/uL Hemoglobin 11.8 g/dL Hematocrit 36.6 % Mean Corpuscular Volume 88.6 fL Mean Corpuscular Hemoglobin 28.6 pg Mean Corpuscular Hemoglobin Concent 32.2 g/dL Red Cell Distribution Width 13.0 % Platelet Count 217 10^3/uL Mean Platelet Volume 9.7 fL Neutrophils (%) (Auto) 93.7 % Lymphocytes (%) (Auto) 1.3 % Monocytes (%) (Auto) 4.1 % Neutrophils # (Auto) 16.4 10^3/uL Lymphocytes # (Auto) 0.22 10^3/uL1 Monocytes # (Auto) 0.7 10^3/uL Absolute Immature Granulocyte (auto 0.16 10^3 u/L Absolute Eosinophils (auto) 0.0 10^3/uL Immature Granulocytes % 0.90 % Eosinophils % 0.0 % Basophils % 0.0 % Basophils # 0.0 10^3/uL Sodium Level 141 mmol/L Potassium Level 5.2 mmol/L Chloride Level 109.0 mmol/L Carbon Dioxide Level 26.2 mmol/L Anion Gap 11.0 Blood Urea Nitrogen 56 mg/dL Creatinine 1.02 mg/dL Estimated GFR () 89.0 Est GFR (CKD-EPI)(Non-Afr Turkish) 73.5 BUN/Creatinine Ratio 54.0 Glucose Level 242 mg/dL Calcium Level 7.4 mg/dL Total Bilirubin 0.3 mg/dL Aspartate Amino Transf (AST/SGOT) 19 U/L Alanine Aminotransferase (ALT/SGPT) 20 U/L Alkaline Phosphatase 68 U/L Total Protein 4.6 g/dL Albumin 1.9 g/dL Globulin 2.7 Albumin/Globulin Ratio 0.703 Test 09/17/20 04:22 09/17/20 05:51 09/17/20 06:25 09/17/20 09:10 Segmented Neutrophils 96 % Lymphocytes 1 % Monocytes 3 % Platelet Estimate ADEQUATE Platelet Morphology NORMAL Bedside Glucose 244 Blood Gas Sample Site ARTERIAL LINE Blood Gas pH 7.303 Blood Gas PCO2 45.2 mmHg Blood Gas PO2 61.0 mmHg Blood Gas HCO3 21.9 mmol/L Blood Gas Base Excess -4.4 mmol/L Abdi Test N/A Arterial Blood Oxygen Saturation 89.1 % Deoxyhemoglobin 10.8 % Carboxyhemoglobin 0.3 % Methemoglobin 0.3 % Total Hemoglobin 12.6 % Total Oxygen Concentration 15.7 % Blood Gas Temperature 37 Oxygen Delivery Method (LAB) VENT Blood Gas Vent Mode AC Blood Gas Vent Rate 25 FiO2 90 % Blood Gas Tidal Volume 400 ML Blood Gas PEEP 10 CMH2O Total Carbon Dioxide 23.3 mmol/L Ammonia 36 umol/L Test 09/17/20 10:45 09/17/20 16:08 09/17/20 16:41 09/17/20 20:00 Bedside Glucose 218 186 175 Sodium Level 138 mmol/L Potassium Level 5.0 mmol/L Chloride Level 106.0 mmol/L Carbon Dioxide Level 24.6 mmol/L Glucose Level 209 mg/dL Blood Urea Nitrogen 62 mg/dL Creatinine 1.29 mg/dL Calcium Level 7.1 mg/dL Anion Gap 12.4 Estimated GFR () 67.8 Est GFR (CKD-EPI)(Non-Afr Turkish) 56.1 BUN/Creatinine Ratio 48.0 Test 09/17/20 23:51 09/18/20 04:14 09/18/20 05:38 09/18/20 07:47 Bedside Glucose 135 173 White Blood Count 20.4 10^3/uL Red Blood Count 4.32 10^6/uL Hemoglobin 12.5 g/dL Hematocrit 38.3 % Mean Corpuscular Volume 88.7 fL Mean Corpuscular Hemoglobin 28.9 pg Mean Corpuscular Hemoglobin Concent 32.6 g/dL Red Cell Distribution Width 13.2 % Platelet Count 202 10^3/uL Mean Platelet Volume 10.0 fL Neutrophils (%) (Auto) 86.3 % Lymphocytes (%) (Auto) 4.3 % Monocytes (%) (Auto) 5.5 % Neutrophils # (Auto) 17.6 10^3/uL Lymphocytes # (Auto) 0.87 10^3/uL1 Monocytes # (Auto) 1.1 10^3/uL Absolute Immature Granulocyte (auto 0.74 10^3 u/L Absolute Eosinophils (auto) 0.1 10^3/uL Immature Granulocytes % 3.60 % Eosinophils % 0.3 % Basophils % 0.0 % Basophils # 0.0 10^3/uL Sodium Level 141 mmol/L Potassium Level 4.4 mmol/L Chloride Level 107.0 mmol/L Carbon Dioxide Level 25.2 mmol/L Anion Gap 13.2 Blood Urea Nitrogen 62 mg/dL Creatinine 1.21 mg/dL Estimated GFR () 73.1 Est GFR (CKD-EPI)(Non-Afr Turkish) 60.4 BUN/Creatinine Ratio 51.0 Glucose Level 129 mg/dL Calcium Level 7.0 mg/dL Total Bilirubin 0.3 mg/dL Aspartate Amino Transf (AST/SGOT) 20 U/L Alanine Aminotransferase (ALT/SGPT) 24 U/L Alkaline Phosphatase 72 U/L Total Protein 4.9 g/dL Albumin 1.8 g/dL Globulin 3.1 Albumin/Globulin Ratio 0.580 Blood Gas Sample Site [place] Blood Gas pH 7.340 Blood Gas PCO2 47.4 mmHg Blood Gas PO2 76.1 mmHg Blood Gas HCO3 25.0 mmol/L Blood Gas Base Excess -1.1 mmol/L Abdi Test N/A Arterial Blood Oxygen Saturation 94.9 % Deoxyhemoglobin 5.1 % Carboxyhemoglobin 0.5 % Methemoglobin 0.4 % Total Hemoglobin 12.9 % Total Oxygen Concentration 17.1 % Blood Gas Temperature 37 Oxygen Delivery Method (LAB) VENT Blood Gas Vent Mode ACVC Blood Gas Vent Rate 25 FiO2 80 % Blood Gas Tidal Volume 400 ML Blood Gas PEEP 12 CMH2O Total Carbon Dioxide 26.5 mmol/L Test 09/18/20 11:26 09/18/20 18:01 09/18/20 20:17 09/18/20 23:51 Bedside Glucose 158 110 76 71 Test 09/19/20 04:30 09/19/20 05:19 09/19/20 05:21 09/19/20 05:25 White Blood Count 18.2 10^3/uL Red Blood Count 4.22 10^6/uL Hemoglobin 12.5 g/dL Hematocrit 36.8 % Mean Corpuscular Volume 87.2 fL Mean Corpuscular Hemoglobin 29.6 pg Mean Corpuscular Hemoglobin Concent 34.0 g/dL Red Cell Distribution Width 13.2 % Platelet Count 137 10^3/uL Mean Platelet Volume 10.4 fL Neutrophils (%) (Auto) 88.7 % Lymphocytes (%) (Auto) 4.6 % Monocytes (%) (Auto) 2.9 % Neutrophils # (Auto) 16.1 10^3/uL Lymphocytes # (Auto) 0.83 10^3/uL1 Monocytes # (Auto) 0.5 10^3/uL Absolute Immature Granulocyte (auto 0.38 10^3 u/L Absolute Eosinophils (auto) 0.3 10^3/uL Immature Granulocytes % 2.10 % Eosinophils % 1.7 % Basophils % 0.0 % Basophils # 0.0 10^3/uL D-Dimer 1.97 mg/L Sodium Level 140 mmol/L Potassium Level 4.1 mmol/L Chloride Level 106.0 mmol/L Carbon Dioxide Level 30.9 mmol/L Anion Gap 7.2 Blood Urea Nitrogen 40 mg/dL Creatinine 0.64 mg/dL Estimated GFR () 152.3 Est GFR (CKD-EPI)(Non-Afr Turkish) 125.9 BUN/Creatinine Ratio 62.0 Glucose Level 121 mg/dL Calcium Level 7.4 mg/dL Phosphorus Level 3.0 mg/dL Magnesium Level 2.5 mg/dL Ferritin 1809 ng/mL Total Bilirubin 0.5 mg/dL Aspartate Amino Transf (AST/SGOT) 28 U/L Alanine Aminotransferase (ALT/SGPT) 32 U/L Alkaline Phosphatase 67 U/L Lactate Dehydrogenase 213 U/L Total Creatine Kinase 20 U/L C-Reactive Protein 18.69 mg/dL Total Protein 5.0 g/dL Albumin 1.5 g/dL Globulin 3.5 Albumin/Globulin Ratio 0.428 Triglycerides Level 91 mg/dL Procalcitonin 1.44 ng/mL Bedside Glucose 201 68 63 Test 09/19/20 07:31 09/19/20 11:30 09/19/20 16:33 09/20/20 00:03 Blood Gas Sample Site [place] Blood Gas pH 7.440 Blood Gas PCO2 39.8 mmHg Blood Gas PO2 65.1 mmHg Blood Gas HCO3 26.4 mmol/L Blood Gas Base Excess 2.2 mmol/L Abdi Test N/A Arterial Blood Oxygen Saturation 93.0 % Deoxyhemoglobin 6.9 % Carboxyhemoglobin 0.9 % Methemoglobin 0.4 % Total Hemoglobin 13.1 % Total Oxygen Concentration 16.9 % Blood Gas Temperature 37 Oxygen Delivery Method (LAB) VENT Blood Gas Vent Mode ACVC Blood Gas Vent Rate 30 FiO2 70 % Blood Gas Tidal Volume 400 ML Blood Gas PEEP 10 CMH2O Total Carbon Dioxide 27.6 mmol/L Bedside Glucose 162 165 266 Test 09/20/20 04:13 09/20/20 05:58 09/20/20 07:30 09/20/20 11:38 White Blood Count 16.6 10^3/uL Red Blood Count 4.21 10^6/uL Hemoglobin 12.0 g/dL Hematocrit 37.1 % Mean Corpuscular Volume 88.1 fL Mean Corpuscular Hemoglobin 28.5 pg Mean Corpuscular Hemoglobin Concent 32.3 g/dL Red Cell Distribution Width 13.3 % Platelet Count 127 10^3/uL Mean Platelet Volume 11.0 fL Neutrophils (%) (Auto) 90.4 % Lymphocytes (%) (Auto) 2.8 % Monocytes (%) (Auto) 3.1 % Neutrophils # (Auto) 15.0 10^3/uL Lymphocytes # (Auto) 0.47 10^3/uL1 Monocytes # (Auto) 0.5 10^3/uL Absolute Immature Granulocyte (auto 0.28 10^3 u/L Absolute Eosinophils (auto) 0.3 10^3/uL Immature Granulocytes % 1.70 % Eosinophils % 1.9 % Basophils % 0.1 % Basophils # 0.0 10^3/uL Sodium Level 140 mmol/L Potassium Level 4.1 mmol/L Chloride Level 106.0 mmol/L Carbon Dioxide Level 29.6 mmol/L Anion Gap 8.5 Blood Urea Nitrogen 24 mg/dL Creatinine 0.58 mg/dL Estimated GFR () 170.7 Est GFR (CKD-EPI)(Non-Afr Turkish) 141.1 BUN/Creatinine Ratio 41.0 Glucose Level 110 mg/dL Calcium Level 7.3 mg/dL Total Bilirubin 0.7 mg/dL Aspartate Amino Transf (AST/SGOT) 27 U/L Alanine Aminotransferase (ALT/SGPT) 28 U/L Alkaline Phosphatase 70 U/L Total Protein 4.9 g/dL Albumin 1.4 g/dL Globulin 3.5 Albumin/Globulin Ratio 0.400 Bedside Glucose 72 182 Blood Gas Sample Site ART LINE Blood Gas pH 7.380 Blood Gas PCO2 42.9 mmHg Blood Gas PO2 64.1 mmHg Blood Gas HCO3 24.8 mmol/L Blood Gas Base Excess -0.4 mmol/L Abdi Test N/A Arterial Blood Oxygen Saturation 92.2 % Deoxyhemoglobin 7.8 % Carboxyhemoglobin 0.1 % Methemoglobin 0.3 % Total Hemoglobin 12.5 % Total Oxygen Concentration 16.2 % Blood Gas Temperature 37.0 Oxygen Delivery Method (LAB) VENT Blood Gas Vent Mode ACVC Blood Gas Vent Rate 28 FiO2 70 % Blood Gas Tidal Volume 400 ML Blood Gas PEEP 10 CMH2O Total Carbon Dioxide 26.1 mmol/L Test 09/20/20 16:35 09/20/20 23:51 09/21/20 00:06 09/21/20 04:09 Bedside Glucose 142 349 121 White Blood Count 12.7 10^3/uL Red Blood Count 3.86 10^6/uL Hemoglobin 11.4 g/dL Hematocrit 34.2 % Mean Corpuscular Volume 88.6 fL Mean Corpuscular Hemoglobin 29.5 pg Mean Corpuscular Hemoglobin Concent 33.3 g/dL Red Cell Distribution Width 13.3 % Platelet Count 112 10^3/uL Mean Platelet Volume 10.7 fL Neutrophils (%) (Auto) 87.8 % Lymphocytes (%) (Auto) 3.2 % Monocytes (%) (Auto) 5.2 % Neutrophils # (Auto) 11.2 10^3/uL Lymphocytes # (Auto) 0.41 10^3/uL1 Monocytes # (Auto) 0.7 10^3/uL Absolute Immature Granulocyte (auto 0.17 10^3 u/L Absolute Eosinophils (auto) 0.3 10^3/uL Immature Granulocytes % 1.30 % Eosinophils % 2.4 % Basophils % 0.1 % Basophils # 0.0 10^3/uL Sodium Level 140 mmol/L Potassium Level 3.9 mmol/L Chloride Level 105.0 mmol/L Carbon Dioxide Level 33.2 mmol/L Anion Gap 5.7 Blood Urea Nitrogen 18 mg/dL Creatinine 0.75 mg/dL Estimated GFR () 126.9 Est GFR (CKD-EPI)(Non-Afr Turkish) 104.8 BUN/Creatinine Ratio 24.0 Glucose Level 135 mg/dL Calcium Level 7.1 mg/dL Phosphorus Level 3.0 mg/dL Magnesium Level 2.4 mg/dL Total Bilirubin 0.8 mg/dL Aspartate Amino Transf (AST/SGOT) 41 U/L Alanine Aminotransferase (ALT/SGPT) 32 U/L Alkaline Phosphatase 83 U/L Total Protein 5.0 g/dL Albumin 1.2 g/dL Globulin 3.8 Albumin/Globulin Ratio 0.315 Test 09/21/20 06:03 09/21/20 07:28 09/21/20 11:20 09/21/20 17:17 Bedside Glucose 103 169 186 Blood Gas Sample Site [place] Blood Gas pH 7.407 Blood Gas PCO2 51.4 mmHg Blood Gas PO2 85.8 mmHg Blood Gas HCO3 31.6 mmol/L Blood Gas Base Excess 5.9 mmol/L Abdi Test N/A Arterial Blood Oxygen Saturation 96.1 % Deoxyhemoglobin 3.9 % Carboxyhemoglobin 1.1 % Methemoglobin 0.1 % Total Hemoglobin 11.7 % Total Oxygen Concentration 15.7 % Blood Gas Temperature 37 Oxygen Delivery Method (LAB) VENT Blood Gas Vent Mode ACVC+ Blood Gas Vent Rate 26 FiO2 70 % Blood Gas Tidal Volume 400 ML Blood Gas PEEP 10 CMH2O Total Carbon Dioxide 33.2 mmol/L Test 09/21/20 21:14 09/22/20 00:35 09/22/20 03:56 09/22/20 04:21 Bedside Glucose 137 149 White Blood Count 8.7 10^3/uL Red Blood Count 3.46 10^6/uL Hemoglobin 10.1 g/dL Hematocrit 31.0 % Mean Corpuscular Volume 89.6 fL Mean Corpuscular Hemoglobin 29.2 pg Mean Corpuscular Hemoglobin Concent 32.6 g/dL Red Cell Distribution Width 13.4 % Platelet Count 116 10^3/uL Mean Platelet Volume 10.7 fL Neutrophils (%) (Auto) 82.9 % Lymphocytes (%) (Auto) 6.6 % Monocytes (%) (Auto) 5.9 % Neutrophils # (Auto) 7.2 10^3/uL Lymphocytes # (Auto) 0.58 10^3/uL1 Monocytes # (Auto) 0.5 10^3/uL Absolute Immature Granulocyte (auto 0.13 10^3 u/L Absolute Eosinophils (auto) 0.3 10^3/uL Immature Granulocytes % 1.50 % Eosinophils % 3.0 % Basophils % 0.1 % Basophils # 0.0 10^3/uL Sodium Level 140 mmol/L Potassium Level 3.8 mmol/L Chloride Level 103.0 mmol/L Carbon Dioxide Level 34.8 mmol/L Anion Gap 6.0 Blood Urea Nitrogen 20 mg/dL Creatinine 0.72 mg/dL Estimated GFR () 133.0 Est GFR (CKD-EPI)(Non-Afr Turkish) 109.9 BUN/Creatinine Ratio 27.0 Glucose Level 203 mg/dL Calcium Level 7.6 mg/dL Phosphorus Level 2.9 mg/dL Magnesium Level 2.1 mg/dL Total Bilirubin 0.9 mg/dL Aspartate Amino Transf (AST/SGOT) 30 U/L Alanine Aminotransferase (ALT/SGPT) 32 U/L Alkaline Phosphatase 125 U/L Total Protein 4.8 g/dL Albumin 1.4 g/dL Globulin 3.4 Albumin/Globulin Ratio 0.411 Segmented Neutrophils 82 % Lymphocytes 4 % Monocytes 10 % Absolute Eosinophils (Manual) 4 % Platelet Estimate SLIGHTLY DECREASED Platelet Morphology NORMAL Test 09/22/20 05:36 09/22/20 07:42 09/22/20 12:27 09/22/20 17:10 Bedside Glucose 157 140 200 Blood Gas Sample Site [place] Blood Gas pH 7.410 Blood Gas PCO2 48.0 mmHg Blood Gas PO2 66.2 mmHg Blood Gas HCO3 29.7 mmol/L Blood Gas Base Excess 4.3 mmol/L Abdi Test N/A Arterial Blood Oxygen Saturation 92.9 % Deoxyhemoglobin 7.1 % Carboxyhemoglobin 0.3 % Methemoglobin 0.3 % Total Hemoglobin 12.0 % Total Oxygen Concentration 15.6 % Blood Gas Temperature 37 Oxygen Delivery Method (LAB) VENT Blood Gas Vent Mode ACVC Blood Gas Vent Rate 26 FiO2 70 % Blood Gas Tidal Volume 400 ML Blood Gas PEEP 10 CMH2O Total Carbon Dioxide 31.2 mmol/L Test 09/22/20 20:34 09/23/20 00:00 09/23/20 04:30 09/23/20 04:40 Bedside Glucose 157 175 Urine Collection Type VOID Urine Color YELLOW Urine Appearance CLEAR Urine Bilirubin NEGATIVE MG/DL Urine Ketones NEGATIVE Urine Specific [place] 1.015 Urine pH 8.5 Urine Protein 30 mg/dL Urine Urobilinogen >=8.0 Urine Nitrate NEGATIVE Urine Leukocyte Esterase NEGATIVE Urine Blood TRACE Urine RBC 2-5 RBC/HPF Urine WBC 0-2 WBC/HPF Urine Bacteria RARE Urine Glucose NEGATIVE White Blood Count 10.6 10^3/uL Red Blood Count 3.49 10^6/uL Hemoglobin 10.1 g/dL Hematocrit 31.5 % Mean Corpuscular Volume 90.3 fL Mean Corpuscular Hemoglobin 28.9 pg Mean Corpuscular Hemoglobin Concent 32.1 g/dL Red Cell Distribution Width 13.3 % Platelet Count 132 10^3/uL Mean Platelet Volume 10.5 fL Neutrophils (%) (Auto) 81.1 % Lymphocytes (%) (Auto) 7.6 % Monocytes (%) (Auto) 5.9 % Neutrophils # (Auto) 8.6 10^3/uL Lymphocytes # (Auto) 0.80 10^3/uL1 Monocytes # (Auto) 0.6 10^3/uL Absolute Immature Granulocyte (auto 0.21 10^3 u/L Absolute Eosinophils (auto) 0.4 10^3/uL Immature Granulocytes % 2.00 % Eosinophils % 3.3 % Basophils % 0.1 % Basophils # 0.0 10^3/uL Sodium Level 141 mmol/L Potassium Level 3.9 mmol/L Chloride Level 100.0 mmol/L Carbon Dioxide Level 38.3 mmol/L Anion Gap 6.6 Blood Urea Nitrogen 18 mg/dL Creatinine 0.84 mg/dL Estimated GFR () 111.3 Est GFR (CKD-EPI)(Non-Afr Turkish) 92.0 BUN/Creatinine Ratio 21.0 Glucose Level 130 mg/dL Calcium Level 8.2 mg/dL Phosphorus Level 2.8 mg/dL Magnesium Level 2.3 mg/dL Total Bilirubin 0.7 mg/dL Aspartate Amino Transf (AST/SGOT) 32 U/L Alanine Aminotransferase (ALT/SGPT) 33 U/L Alkaline Phosphatase 134 U/L Total Protein 5.8 g/dL Albumin 2.5 g/dL Globulin 3.3 Albumin/Globulin Ratio 0.757 Test 09/23/20 06:27 09/23/20 07:25 09/23/20 10:02 09/23/20 13:30 Bedside Glucose 154 88 166 Blood Gas Sample Site [place] Blood Gas pH 7.421 Blood Gas PCO2 57.2 mmHg Blood Gas PO2 71.7 mmHg Blood Gas HCO3 36.4 mmol/L Blood Gas Base Excess 9.8 mmol/L Abdi Test N/A Arterial Blood Oxygen Saturation 93.6 % Deoxyhemoglobin 6.3 % Carboxyhemoglobin 0.9 % Methemoglobin 0.4 % Total Hemoglobin 13.8 % Total Oxygen Concentration 17.9 % Blood Gas Temperature 37 Oxygen Delivery Method (LAB) VENT Blood Gas Vent Mode ACVC+ Blood Gas Vent Rate 26 FiO2 70 % Blood Gas Tidal Volume 400 ML Blood Gas PEEP 10 CMH2O Total Carbon Dioxide 38.1 mmol/L Test 09/23/20 17:15 09/23/20 21:49 09/23/20 23:49 09/24/20 03:46 Bedside Glucose 86 181 153 White Blood Count 8.3 10^3/uL Red Blood Count 3.40 10^6/uL Hemoglobin 10.0 g/dL Hematocrit 30.6 % Mean Corpuscular Volume 90.0 fL Mean Corpuscular Hemoglobin 29.4 pg Mean Corpuscular Hemoglobin Concent 32.7 g/dL Red Cell Distribution Width 13.6 % Platelet Count 145 10^3/uL Mean Platelet Volume 10.9 fL Neutrophils (%) (Auto) 71.0 % Lymphocytes (%) (Auto) 14.0 % Monocytes (%) (Auto) 5.7 % Neutrophils # (Auto) 5.9 10^3/uL Lymphocytes # (Auto) 1.16 10^3/uL1 Monocytes # (Auto) 0.5 10^3/uL Absolute Immature Granulocyte (auto 0.31 10^3 u/L Absolute Eosinophils (auto) 0.4 10^3/uL Immature Granulocytes % 3.70 % Eosinophils % 5.2 % Basophils % 0.4 % Basophils # 0.0 10^3/uL D-Dimer 5.22 mg/L Sodium Level 142 mmol/L Potassium Level 3.6 mmol/L Chloride Level 102.0 mmol/L Carbon Dioxide Level 38.9 mmol/L Anion Gap 4.7 Blood Urea Nitrogen 16 mg/dL Creatinine 0.72 mg/dL Estimated GFR () 133.0 Est GFR (CKD-EPI)(Non-Afr Turkish) 109.9 BUN/Creatinine Ratio 22.0 Glucose Level 93 mg/dL Calcium Level 8.2 mg/dL Phosphorus Level 3.7 mg/dL Magnesium Level 2.2 mg/dL Ferritin 644 ng/mL Total Bilirubin 0.5 mg/dL Aspartate Amino Transf (AST/SGOT) 28 U/L Alanine Aminotransferase (ALT/SGPT) 33 U/L Alkaline Phosphatase 128 U/L Lactate Dehydrogenase 195 U/L Total Creatine Kinase 49 U/L C-Reactive Protein 15.29 mg/dL Total Protein 5.6 g/dL Albumin 2.0 g/dL Globulin 3.6 Albumin/Globulin Ratio 0.555 Procalcitonin 0.83 ng/mL Test 09/24/20 06:26 09/24/20 09:19 09/24/20 10:11 09/24/20 13:57 Bedside Glucose 102 76 127 Blood Gas Sample Site [place] Blood Gas pH 7.432 Blood Gas PCO2 61.8 mmHg Blood Gas PO2 67.0 mmHg Blood Gas HCO3 40.3 mmol/L Blood Gas Base Excess 13.6 mmol/L Abdi Test N/A Arterial Blood Oxygen Saturation 92.6 % Deoxyhemoglobin 7.3 % Carboxyhemoglobin 0.4 % Methemoglobin 0.4 % Total Hemoglobin 11.9 % Total Oxygen Concentration 15.4 % Oxygen Delivery Method (LAB) MV Blood Gas Vent Mode ACVC+ Blood Gas Vent Rate 26 FiO2 70 % Blood Gas Tidal Volume 400 ML Blood Gas PEEP 10.0 CMH2O Total Carbon Dioxide 42.2 mmol/L Test 09/24/20 18:07 09/24/20 23:49 09/25/20 04:00 09/25/20 05:45 Bedside Glucose 157 127 160 White Blood Count 9.6 10^3/uL Red Blood Count 3.75 10^6/uL Hemoglobin 10.8 g/dL Hematocrit 34.1 % Mean Corpuscular Volume 90.9 fL Mean Corpuscular Hemoglobin 28.8 pg Mean Corpuscular Hemoglobin Concent 31.7 g/dL Red Cell Distribution Width 13.7 % Platelet Count 171 10^3/uL Mean Platelet Volume 11.2 fL Neutrophils (%) (Auto) 67.5 % Lymphocytes (%) (Auto) 15.1 % Monocytes (%) (Auto) 4.0 % Neutrophils # (Auto) 6.5 10^3/uL Lymphocytes # (Auto) 1.45 10^3/uL1 Monocytes # (Auto) 0.4 10^3/uL Absolute Immature Granulocyte (auto 0.58 10^3 u/L Absolute Eosinophils (auto) 0.7 10^3/uL Immature Granulocytes % 6.10 % Eosinophils % 7.0 % Basophils % 0.3 % Basophils # 0.0 10^3/uL Sodium Level 141 mmol/L Potassium Level 4.4 mmol/L Chloride Level 101.0 mmol/L Carbon Dioxide Level 37.2 mmol/L Anion Gap 7.2 Blood Urea Nitrogen 20 mg/dL Creatinine 0.90 mg/dL Estimated GFR () 102.8 Est GFR (CKD-EPI)(Non-Afr Turkish) 85.0 BUN/Creatinine Ratio 22.0 Glucose Level 149 mg/dL Calcium Level 8.6 mg/dL Phosphorus Level 5.6 mg/dL Magnesium Level 2.4 mg/dL Total Bilirubin 0.4 mg/dL Aspartate Amino Transf (AST/SGOT) 28 U/L Alanine Aminotransferase (ALT/SGPT) 31 U/L Alkaline Phosphatase 135 U/L Total Protein 6.0 g/dL Albumin 2.0 g/dL Globulin 4.0 Albumin/Globulin Ratio 0.500 Test 09/25/20 07:42 09/25/20 11:30 09/25/20 17:53 09/26/20 00:57 Blood Gas Sample Site [place] Blood Gas pH 7.417 Blood Gas PCO2 52.9 mmHg Blood Gas PO2 77.6 mmHg Blood Gas HCO3 33.3 mmol/L Blood Gas Base Excess 7.3 mmol/L Abdi Test N/A Arterial Blood Oxygen Saturation 95.4 % Deoxyhemoglobin 4.6 % Carboxyhemoglobin 0.6 % Methemoglobin 0.3 % Total Hemoglobin 13.0 % Total Oxygen Concentration 17.3 % Blood Gas Temperature 37 Oxygen Delivery Method (LAB) VENT Blood Gas Vent Mode ACVC Blood Gas Vent Rate 26 FiO2 85 % Blood Gas Tidal Volume 400 ML Blood Gas PEEP 10 CMH2O Total Carbon Dioxide 34.9 mmol/L Bedside Glucose 171 99 201 Test 09/26/20 04:10 09/26/20 04:45 09/26/20 06:44 09/26/20 07:51 White Blood Count 9.2 10^3/uL Red Blood Count 3.64 10^6/uL Hemoglobin 10.6 g/dL Hematocrit 32.7 % Mean Corpuscular Volume 89.8 fL Mean Corpuscular Hemoglobin 29.1 pg Mean Corpuscular Hemoglobin Concent 32.4 g/dL Red Cell Distribution Width 13.6 % Platelet Count 192 10^3/uL Mean Platelet Volume 10.7 fL Sodium Level 139 mmol/L Potassium Level 4.5 mmol/L Chloride Level 101.0 mmol/L Carbon Dioxide Level 34.9 mmol/L Anion Gap 7.6 Blood Urea Nitrogen 18 mg/dL Creatinine 0.85 mg/dL Estimated GFR () 109.8 Est GFR (CKD-EPI)(Non-Afr Turkish) 90.7 BUN/Creatinine Ratio 21.0 Glucose Level 152 mg/dL Calcium Level 9.0 mg/dL Phosphorus Level 4.4 mg/dL Total Bilirubin 0.3 mg/dL Aspartate Amino Transf (AST/SGOT) 31 U/L Alanine Aminotransferase (ALT/SGPT) 26 U/L Alkaline Phosphatase 139 U/L Total Protein 6.2 g/dL Albumin 2.0 g/dL Globulin 4.2 Albumin/Globulin Ratio 0.476 Magnesium Level 2.4 mg/dL Bedside Glucose 156 Blood Gas Sample Site ART LINE Blood Gas pH 7.424 Blood Gas PCO2 53.4 mmHg Blood Gas PO2 73.1 mmHg Blood Gas HCO3 34.2 mmol/L Blood Gas Base Excess 8.3 mmol/L Abdi Test N/A Arterial Blood Oxygen Saturation 93.9 % Deoxyhemoglobin 6.0 % Carboxyhemoglobin 0.8 % Methemoglobin 0.4 % Total Hemoglobin 12.3 % Total Oxygen Concentration 16.1 % Oxygen Delivery Method (LAB) MV Blood Gas Vent Mode ACVC+ Blood Gas Vent Rate 26 FiO2 70 % Blood Gas Tidal Volume 400 ML Blood Gas PEEP 10.0 CMH2O Total Carbon Dioxide 35.8 mmol/L Test 09/26/20 12:07 09/26/20 17:51 09/27/20 00:28 09/27/20 04:08 Bedside Glucose 155 144 219 White Blood Count 10.7 10^3/uL Red Blood Count 3.75 10^6/uL Hemoglobin 10.9 g/dL Hematocrit 33.5 % Mean Corpuscular Volume 89.3 fL Mean Corpuscular Hemoglobin 29.1 pg Mean Corpuscular Hemoglobin Concent 32.5 g/dL Red Cell Distribution Width 13.5 % Platelet Count 232 10^3/uL Mean Platelet Volume 10.5 fL Sodium Level 136 mmol/L Potassium Level 4.7 mmol/L Chloride Level 98.0 mmol/L Carbon Dioxide Level 34.8 mmol/L Anion Gap 7.9 Blood Urea Nitrogen 19 mg/dL Creatinine 0.78 mg/dL Estimated GFR () 121.3 Est GFR (CKD-EPI)(Non-Afr Turkish) 100.2 BUN/Creatinine Ratio 24.0 Glucose Level 154 mg/dL Calcium Level 8.7 mg/dL Phosphorus Level 4.2 mg/dL Magnesium Level 2.3 mg/dL Total Bilirubin 0.3 mg/dL Aspartate Amino Transf (AST/SGOT) 30 U/L Alanine Aminotransferase (ALT/SGPT) 23 U/L Alkaline Phosphatase 143 U/L Total Protein 6.7 g/dL Albumin 2.1 g/dL Globulin 4.6 Albumin/Globulin Ratio 0.456 Test 09/27/20 05:52 09/27/20 06:30 09/27/20 07:24 09/27/20 11:55 Bedside Glucose 187 181 Urine Collection Type UNKNOWN Urine Color YELLOW Urine Appearance CLEAR Urine Bilirubin NEGATIVE MG/DL Urine Ketones NEGATIVE Urine Specific [place] 1.010 Urine pH 6.5 Urine Protein TRACE Urine Urobilinogen 2.0 Urine Nitrate NEGATIVE Urine Leukocyte Esterase NEGATIVE Urine Blood NEGATIVE Urine RBC 5-10 RBC/HPF Urine WBC 5-10 WBC/HPF Urine Squamous Epithelial Cells RARE #/HPF Urine Bacteria FEW Urine Glucose NORMAL Blood Gas Sample Site [place] Blood Gas pH 7.396 Blood Gas PCO2 47.5 mmHg Blood Gas PO2 81.3 mmHg Blood Gas HCO3 28.5 mmol/L Blood Gas Base Excess 3.0 mmol/L Abdi Test N/A Arterial Blood Oxygen Saturation 95.2 % Deoxyhemoglobin 4.7 % Carboxyhemoglobin 0.8 % Methemoglobin 0.4 % Total Hemoglobin 11.9 % Total Oxygen Concentration 15.8 % Blood Gas Temperature 37 Oxygen Delivery Method (LAB) VENT Blood Gas Vent Mode ACVC Blood Gas Vent Rate 24 FiO2 70 % Blood Gas Tidal Volume 400 ML Blood Gas PEEP 10 CMH2O Total Carbon Dioxide 30.0 mmol/L Test 09/27/20 17:30 09/28/20 00:12 09/28/20 04:05 09/28/20 06:06 Bedside Glucose 152 242 188 White Blood Count 16.2 10^3/uL Red Blood Count 3.76 10^6/uL Hemoglobin 11.0 g/dL Hematocrit 33.5 % Mean Corpuscular Volume 89.1 fL Mean Corpuscular Hemoglobin 29.3 pg Mean Corpuscular Hemoglobin Concent 32.8 g/dL Red Cell Distribution Width 13.7 % Platelet Count 245 10^3/uL Mean Platelet Volume 10.3 fL Neutrophils (%) (Auto) 81.8 % Lymphocytes (%) (Auto) 4.1 % Monocytes (%) (Auto) 4.0 % Neutrophils # (Auto) 13.3 10^3/uL Lymphocytes # (Auto) 0.66 10^3/uL1 Monocytes # (Auto) 0.6 10^3/uL Absolute Immature Granulocyte (auto 1.04 10^3 u/L Absolute Eosinophils (auto) 0.6 10^3/uL Immature Granulocytes % 6.40 % Eosinophils % 3.5 % Basophils % 0.2 % Basophils # 0.0 10^3/uL Sodium Level 135 mmol/L Potassium Level 4.6 mmol/L Chloride Level 100.0 mmol/L Carbon Dioxide Level 28.8 mmol/L Anion Gap 10.8 Blood Urea Nitrogen 19 mg/dL Creatinine 0.84 mg/dL Estimated GFR () 111.3 Est GFR (CKD-EPI)(Non-Afr Turkish) 92.0 BUN/Creatinine Ratio 22.0 Glucose Level 166 mg/dL Calcium Level 8.9 mg/dL Total Bilirubin 0.5 mg/dL Aspartate Amino Transf (AST/SGOT) 33 U/L Alanine Aminotransferase (ALT/SGPT) 22 U/L Alkaline Phosphatase 134 U/L Total Protein 6.7 g/dL Albumin 2.0 g/dL Globulin 4.7 Albumin/Globulin Ratio 0.425 Test 09/28/20 06:16 09/28/20 07:22 09/28/20 11:45 09/28/20 17:32 Differential Total Cells Counted 100 #CELLS Segmented Neutrophils 78 % Band Neutrophils 5 % Lymphocytes 4 % Monocytes 5 % Absolute Eosinophils (Manual) 8 % Platelet Estimate ADEQUATE Platelet Morphology NORMAL Macrocytosis 1+ Blood Gas Sample Site [place] Blood Gas pH 7.411 Blood Gas PCO2 45.7 mmHg Blood Gas PO2 74.5 mmHg Blood Gas HCO3 28.4 mmol/L Blood Gas Base Excess 3.2 mmol/L Abdi Test N/A Arterial Blood Oxygen Saturation 94.6 % Deoxyhemoglobin 5.4 % Carboxyhemoglobin 0.3 % Methemoglobin 0.2 % Total Hemoglobin 11.2 % Total Oxygen Concentration 14.9 % Blood Gas Temperature 37 Oxygen Delivery Method (LAB) VENT Blood Gas Vent Mode ACVC+ Blood Gas Vent Rate 24 FiO2 70 % Blood Gas Tidal Volume 400 ML Blood Gas PEEP 10 CMH2O Total Carbon Dioxide 29.8 mmol/L Bedside Glucose 149 121 Test 09/28/20 19:56 09/28/20 23:54 09/29/20 04:17 09/29/20 05:52 Vancomycin Level Trough 22.0 ug/mL Bedside Glucose 187 198 White Blood Count 13.8 10^3/uL Red Blood Count 3.67 10^6/uL Hemoglobin 10.6 g/dL Hematocrit 32.7 % Mean Corpuscular Volume 89.1 fL Mean Corpuscular Hemoglobin 28.9 pg Mean Corpuscular Hemoglobin Concent 32.4 g/dL Red Cell Distribution Width 13.7 % Platelet Count 295 10^3/uL Mean Platelet Volume 10.5 fL D-Dimer 3.52 mg/L Sodium Level 137 mmol/L Potassium Level 3.9 mmol/L Chloride Level 101.0 mmol/L Carbon Dioxide Level 32.2 mmol/L Anion Gap 7.7 Blood Urea Nitrogen 21 mg/dL Creatinine 0.66 mg/dL Estimated GFR () 147.0 Est GFR (CKD-EPI)(Non-Afr Turkish) 121.5 BUN/Creatinine Ratio 31.0 Glucose Level 146 mg/dL Calcium Level 8.3 mg/dL Phosphorus Level 3.1 mg/dL Magnesium Level 2.1 mg/dL Ferritin 1357 ng/mL Total Bilirubin 0.4 mg/dL Aspartate Amino Transf (AST/SGOT) 31 U/L Alanine Aminotransferase (ALT/SGPT) 22 U/L Alkaline Phosphatase 122 U/L Lactate Dehydrogenase 249 U/L C-Reactive Protein 20.04 mg/dL Pro-B-Type Natriuretic Peptide 3749 pg/mL Total Protein 6.5 g/dL Albumin 1.9 g/dL Globulin 4.6 Albumin/Globulin Ratio 0.413 Procalcitonin 1.29 ng/mL Test 09/29/20 07:00 09/29/20 12:04 Blood Gas Sample Site [place] Blood Gas pH 7.380 Blood Gas PCO2 46.8 mmHg Blood Gas PO2 90.2 mmHg Blood Gas HCO3 27.1 mmol/L Blood Gas Base Excess 1.5 mmol/L Abdi Test N/A Arterial Blood Oxygen Saturation 96.7 % Deoxyhemoglobin 3.3 % Carboxyhemoglobin 0.6 % Methemoglobin 0.3 % Total Hemoglobin 10.8 % Total Oxygen Concentration 14.7 % Blood Gas Temperature 37 Blood Gas Vent Mode AC FiO2 70 % Total Carbon Dioxide 28.5 mmol/L Bedside Glucose 155 Current Medications Medications (Trade) Dose Ordered Sig/Adrianna Route PRN Reason Start Time Stop Time Status Last Admin Dose Admin Acetaminophen (Tylenol) 325 mg Q4H PRN PO PAIN 1 - 3 09/03/20 19:00 09/05/20 19:26 DC Morphine Sulfate (Morphine Sulfate) 2 mg Q4H PRN IV PAIN 4 - 6 09/03/20 19:00 09/04/20 19:28 DC Insulin Human Lispro (Humalog) 0-140 0 Units 141-200... ACHS SQ 09/03/20 21:00 09/13/20 19:43 DC 09/13/20 17:28 Dextrose 1,000 ml @ 100 mls/hr Q10H PRN IV HYPOGLYCEMIA 09/03/20 19:00 09/22/20 10:02 DC Dextrose (Dextrose 50%-Water Syringe) 25 ml STAT PRN IV HYPOGLYCEMIA 09/03/20 19:00 10/03/20 18:59 Glucagon (Glucagen) 1 mg STAT STAT IV 09/03/20 18:44 09/03/20 18:56 DC Heparin Sodium (Porcine) (Heparin) 5,000 unit Q8HR SQ 09/03/20 22:00 09/04/20 20:10 DC 09/04/20 14:00 Lisinopril (Zestril) 20 mg BID PO 09/03/20 21:00 09/14/20 11:07 DC 09/12/20 21:00 Azithromycin 500 mg/Sodium Chloride 250 ml @ 175 mls/hr Q24HRS IV 09/03/20 20:30 09/04/20 08:15 DC 09/03/20 21:11 Ceftriaxone Sodium 1000 mg/ Sodium Chloride 100 ml @ 100 mls/hr Q24HRS IV 09/03/20 19:30 09/04/20 08:15 DC 09/03/20 19:39 Sodium Chloride 1,000 ml @ 75 mls/hr [id number] IV 09/03/20 20:00 09/11/20 10:16 DC 09/11/20 01:20 Ceftriaxone Sodium (Rocephin) 1,000 mg STK-MED ONCE .ROUTE 09/03/20 19:35 09/03/20 19:35 DC Sodium Chloride 100 ml @ ud STK-MED ONCE IV 09/03/20 19:35 09/03/20 19:36 DC Zinc Sulfate (Zinc Sulfate) 220 mg DAILY PO 09/04/20 09:00 09/05/20 00:13 DC 09/04/20 08:22 Ascorbic Acid (Vitamin C) 500 mg BID PO 09/04/20 09:00 09/05/20 00:13 DC 09/04/20 20:22 Morphine Sulfate (Morphine Sulfate) 2 mg Q4H PRN IV PAIN 4 - 6 09/04/20 19:28 09/17/20 11:06 DC Enoxaparin Sodium (Lovenox) 75 mg BID SQ 09/04/20 20:30 09/05/20 11:39 DC 09/05/20 08:20 Azithromycin (Zithromax) 500 mg OT ONCE PO 09/05/20 00:00 09/05/20 02:22 DC 09/05/20 00:27 Ceftriaxone Sodium 2000 mg/ Sodium Chloride 100 ml @ 100 mls/hr Q24HRS IV 09/05/20 00:00 09/09/20 18:46 DC 09/08/20 23:59 Azithromycin (Zithromax) 250 mg DAILY PO 09/05/20 19:00 09/09/20 18:59 DC 09/09/20 08:31 Ceftriaxone Sodium (Rocephin) 1,000 mg STK-MED ONCE .ROUTE 09/05/20 00:25 09/05/20 00:26 DC Sodium Chloride 100 ml @ ud STK-MED ONCE IV 09/05/20 00:26 09/05/20 00:26 DC Enoxaparin Sodium (Lovenox) 40 mg DAILY SQ 09/06/20 09:00 09/09/20 18:47 DC 09/09/20 08:31 Ascorbic Acid (Vitamin C) 1,000 mg BID PO 09/05/20 21:00 10/05/20 20:59 09/29/20 08:05 Zinc Sulfate (Zinc Sulfate) 220 mg BID PO 09/05/20 21:00 10/05/20 20:59 09/29/20 08:05 Albuterol Sulfate (Ventolin Hfa) 2 inh RTQ4 IH 09/05/20 13:00 09/20/20 10:05 DC 09/20/20 08:30 Acetaminophen (Tylenol) 1,000 mg Q6H PRN PO PAIN 1 - 3 09/05/20 12:00 10/05/20 11:59 09/27/20 03:58 Enoxaparin Sodium (Lovenox) 40 mg STK-MED ONCE SQ 09/06/20 07:12 09/06/20 07:12 DC Remdesivir 200 mg/ Sodium Chloride 140 ml @ 120.69 mls/ hr OT STAT IV 09/07/20 18:45 09/07/20 19:54 DC 09/07/20 19:10 Remdesivir 100 mg/ Sodium Chloride 120 ml @ 111.111 mls/hr Q24HRS IV 09/08/20 19:00 09/13/20 07:12 DC 09/12/20 19:00 Potassium Chloride (Klor-Con 10) 40 meq OT PO 09/08/20 13:00 09/11/20 15:50 DC 09/09/20 04:56 Metoprolol Tartrate (Lopresser) 10 mg STAT STAT IVP 09/09/20 11:00 09/09/20 11:04 DC 09/09/20 11:34 Metoprolol Tartrate (Lopresser) 25 mg BID PO 09/09/20 21:00 09/14/20 11:02 DC 09/12/20 21:00 Enoxaparin Sodium (Lovenox) 80 mg BID SQ 09/09/20 19:00 09/11/20 15:51 DC 09/11/20 09:00 Sodium Chloride 250 ml @ ud STK-MED ONCE IV 09/10/20 12:50 09/10/20 12:51 DC Enoxaparin Sodium (Lovenox) 80 mg STK-MED ONCE SQ 09/10/20 21:17 09/10/20 21:17 DC Lorazepam (Ativan) 1 mg Q4HR PRN IV ANXIETY 09/11/20 00:30 09/18/20 08:58 DC 09/13/20 04:00 Enoxaparin Sodium (Lovenox) 80 mg BID SQ 09/11/20 21:00 09/13/20 15:41 DC 09/12/20 21:00 Methylprednisolone Acetate (Depo-Medrol) 40 mg Q8HR IM 09/11/20 22:00 09/11/20 18:19 DC Quetiapine Fumarate (Seroquel) 25 mg BID PO 09/12/20 21:00 09/13/20 15:41 DC 09/12/20 21:00 Quetiapine Fumarate (Seroquel) 25 mg BID PO 09/13/20 03:00 09/13/20 04:46 DC Dexmedetomidine HCl 400 mcg/ Sodium Chloride 100 ml @ 0 mls/hr IV 09/13/20 05:00 09/28/20 08:30 DC 09/14/20 09:26 Sodium Chloride 100 ml @ ud STK-MED ONCE IV 09/13/20 05:16 09/13/20 05:16 DC Hydralazine HCl (Apresoline) 5 mg STAT STAT IV 09/13/20 08:19 09/13/20 08:21 DC 09/13/20 08:30 Hydralazine HCl (Apresoline) 5 mg STAT STAT IV 09/13/20 09:43 09/13/20 10:03 DC 09/13/20 09:43 Sterile Water (Water) 1,000 ml STK-MED ONCE .ROUTE 09/13/20 11:31 09/13/20 11:31 DC Sodium Chloride 1,000 ml @ ud STK-MED ONCE .ROUTE 09/13/20 11:31 09/13/20 11:31 DC Propofol 100 ml @ ud STK-MED ONCE IV 09/13/20 11:46 09/13/20 11:47 DC Propofol (Diprivan) 1,000 mg STAT IV 09/13/20 13:00 10/13/20 12:59 09/29/20 09:51 Sodium Chloride 1,000 ml @ 0 mls/hr Q0M ONCE IV 09/13/20 11:45 09/13/20 13:21 DC 09/13/20 11:45 Fentanyl Citrate 2000 mcg/Sodium Chloride 200 ml @ 7.4 mls/hr IV 09/13/20 16:00 09/13/20 19:50 DC 09/13/20 16:17 Methylprednisolone Sodium Succinate (Solu-Medrol) 40 mg Q8HR IV 09/13/20 22:00 09/17/20 07:00 DC 09/17/20 06:00 Succinylcholine Chloride (Quelicin) 100 mg STK-MED ONCE IV 09/13/20 11:58 09/13/20 18:48 DC Propofol (Diprivan) 150 mg STK-MED ONCE IV 09/13/20 11:58 09/13/20 18:48 DC Furosemide (Lasix) 20 mg STAT STAT IV 09/13/20 19:07 09/13/20 19:47 DC 09/13/20 19:07 Enoxaparin Sodium (Lovenox) 70 mg BID SQ 09/13/20 21:00 10/13/20 20:59 09/29/20 08:05 Insulin Human Lispro (Humalog) 0-140 0 Units 141-200... Q6 SQ 09/14/20 00:00 10/16/22 20:59 09/29/20 12:00 Fentanyl Citrate 5000 mcg/Sodium Chloride 500 ml @ 11.4 mls/hr IV 09/13/20 20:00 10/13/20 19:59 09/29/20 06:41 Sodium Chloride 500 ml @ 500 mls/hr Q1H ONCE IV 09/13/20 21:00 09/13/20 21:59 DC 09/13/20 21:00 Sodium Chloride 500 ml @ ud STK-MED ONCE IV 09/13/20 20:34 09/13/20 20:34 DC Sodium Chloride 250 ml @ ud STK-MED ONCE IV 09/13/20 20:34 09/13/20 20:34 DC Norepinephrine Bitartrate (Levophed) 4 mg STK-MED ONCE .ROUTE 09/13/20 20:34 09/13/20 20:35 DC Norepinephrine Bitartrate 8 mg/ Sodium Chloride 250 ml @ 0 mls/hr PRN PRN IV HYPOTENSION 09/13/20 21:00 09/19/20 10:29 DC 09/18/20 13:20 Furosemide (Lasix) 40 mg STK-MED ONCE .ROUTE 09/13/20 21:19 09/13/20 21:19 DC Docusate Sodium (Colace) 100 mg BID PO 09/14/20 21:00 10/14/20 20:59 09/28/20 21:00 Ceftriaxone Sodium 1000 mg/ Sodium Chloride 100 ml @ 200 mls/hr Q24HRS IV 09/14/20 15:00 09/19/20 09:11 DC 09/18/20 15:09 Azithromycin 500 mg/Sodium Chloride 250 ml @ 175 mls/hr Q24HRS IV 09/14/20 16:00 09/17/20 15:59 DC 09/16/20 16:00 Sodium Chloride 1,000 ml @ 75 mls/hr [id number] IV 09/14/20 15:30 09/17/20 11:06 DC 09/16/20 17:28 Heparin Sodium/ Sodium Chloride 500 ml @ ud STK-MED ONCE IV 09/14/20 18:32 09/14/20 18:32 DC Vecuronium [place] (Norcuron) 10 mg STK-MED ONCE .ROUTE 09/14/20 18:40 09/14/20 18:40 DC Sterile Water (Water) 1,000 ml STK-MED ONCE .ROUTE 09/15/20 00:38 09/15/20 00:39 DC Insulin Glargine (Lantus) 10 unit BID SQ 09/15/20 14:30 09/16/20 12:30 DC 09/16/20 08:28 Sterile Water (Water) 1,000 ml STK-MED ONCE .ROUTE 09/15/20 20:12 09/15/20 20:13 DC Vecuronium [place] (Norcuron) 10 mg STAT ONCE IV 09/16/20 10:00 09/16/20 10:12 DC 09/16/20 11:00 Insulin Glargine (Lantus) 20 unit BID SQ 09/16/20 21:00 09/24/20 10:44 DC 09/23/20 21:45 Pantoprazole Sodium (Protonix Iv) 40 mg DAILY IV 09/17/20 09:00 10/17/20 08:59 09/29/20 08:01 Sterile Water (Water) 1,000 ml STK-MED ONCE .ROUTE 09/16/20 16:52 09/16/20 16:53 DC Furosemide (Lasix) 20 mg STAT ONCE IV 09/17/20 08:00 09/17/20 08:17 DC 09/17/20 08:00 Quetiapine Fumarate (Seroquel) 25 mg BID PO 09/17/20 09:30 10/17/20 09:29 09/29/20 08:01 Vecuronium [place] (Norcuron) 10 mg Q2 PRN IV AGITATION 09/17/20 11:30 09/18/20 08:53 DC 09/17/20 15:00 Furosemide (Lasix) 40 mg DAILY IV 09/17/20 11:30 09/24/20 10:44 DC 09/24/20 09:00 Lactulose (Cephulac) 20 gm DAILY NG 09/18/20 09:00 09/18/20 08:56 DC Norepinephrine Bitartrate (Levophed) 4 mg STK-MED ONCE .ROUTE 09/17/20 16:16 09/17/20 16:17 DC Sodium Chloride 250 ml @ ud STK-MED ONCE IV 09/17/20 16:16 09/17/20 16:17 DC Sterile Water (Water) 1,000 ml STK-MED ONCE .ROUTE 09/17/20 18:20 09/17/20 18:21 DC Sodium Chloride 100 ml @ ud STK-MED ONCE IV 09/17/20 22:27 09/17/20 22:28 DC Fentanyl Citrate (Sublimaze) 50 mcg STK-MED ONCE .ROUTE 09/17/20 22:28 09/17/20 22:29 DC Vecuronium [place] (Norcuron) 10 mg Q2 IV 09/18/20 09:00 09/20/20 10:04 DC 09/20/20 08:00 Lactulose (Cephulac) 20 gm DAILY NG 09/18/20 09:00 10/18/20 08:59 09/28/20 09:00 Vecuronium [place] (Norcuron) 5 mg Q1HR PRN IV Additional Paralysis 09/18/20 09:00 10/18/20 08:59 09/21/20 17:19 Sterile Water (Water) 1,000 ml STK-MED ONCE .ROUTE 09/18/20 09:55 09/18/20 09:55 DC Heparin Sodium/ Dextrose 500 ml @ ud STK-MED ONCE IV 09/18/20 13:59 09/18/20 13:59 DC Cefepime HCl 2 gm/ Sodium Chloride 100 ml @ 100 mls/hr Q8H IV 09/19/20 09:00 09/20/20 10:04 DC 09/20/20 09:00 Norepinephrine Bitartrate 8 mg/ Sodium Chloride 250 ml @ 0 mls/hr TITRATE ONCE IV 09/19/20 11:00 09/19/20 11:01 DC 09/19/20 10:30 Norepinephrine Bitartrate 8 mg/ Sodium Chloride 250 ml @ 0 mls/hr TITRATE IV 09/19/20 12:00 10/19/20 11:59 09/23/20 14:20 Sterile Water (Water) 1,000 ml STK-MED ONCE .ROUTE 09/20/20 08:08 09/20/20 08:09 DC Vecuronium [place] (Norcuron) 10 mg Q3H PRN IV vent/dsynchonry hypoxia 09/20/20 10:30 10/20/20 10:29 09/28/20 00:09 Midazolam HCl (Versed) 2 mg Q2H PRN IV SEDATION 09/20/20 10:30 10/20/20 10:29 UNV Albuterol Sulfate (Ventolin Hfa) 2 inh PRN PRN IH wheezing 09/20/20 10:30 10/20/20 10:29 09/22/20 08:30 Vasopressin 20 unit/Sodium Chloride 100 ml @ 0 mls/hr PRN ONCE IV 09/20/20 17:00 09/20/20 17:01 DC Furosemide (Lasix) 60 mg OT ONCE IV 09/21/20 15:00 09/21/20 15:13 DC Albumin Human (Buminate 25%) 100 ml OT ONCE IV 09/21/20 15:00 09/21/20 15:13 DC 09/21/20 15:00 Sterile Water (Water) 1,000 ml STK-MED ONCE .ROUTE 09/21/20 15:26 09/21/20 15:26 DC Albumin Human (Buminate 25%) 100 ml Q8H IV 09/22/20 10:00 09/23/20 09:59 DC 09/23/20 02:00 Sterile Water (Water) 1,000 ml STK-MED ONCE .ROUTE 09/22/20 17:13 09/22/20 17:14 DC Acetaminophen (Ofirmev) 1,000 mg Q8H PRN IV see dose instructions 09/23/20 04:30 10/23/20 04:29 09/28/20 10:04 Sodium Chloride 250 ml @ ud STK-MED ONCE IV 09/23/20 14:14 09/23/20 14:14 DC Norepinephrine Bitartrate (Levophed) 4 mg STK-MED ONCE .ROUTE 09/23/20 14:14 09/23/20 14:14 DC Potassium Chloride 100 ml @ 50 mls/hr OT IV 09/24/20 10:00 10/24/20 09:59 09/24/20 10:32 Furosemide (Lasix) 20 mg DAILY IV 09/25/20 09:00 10/25/20 08:59 09/29/20 08:00 Heparin Sodium/ Sodium Chloride 500 ml @ ud STK-MED ONCE IV 09/25/20 07:09 09/25/20 07:10 DC Sterile Water (Water) 1,000 ml STK-MED ONCE .ROUTE 09/25/20 08:59 09/25/20 08:59 DC Cefepime HCl 2 gm/ Sodium Chloride 100 ml @ 100 mls/hr BID IV 09/27/20 09:00 09/27/20 10:48 DC 09/27/20 09:00 Vancomycin HCl 1250 gm/Sodium Chloride 250 ml @ 175 mls/hr BID IV 09/27/20 10:00 09/27/20 19:21 DC 09/27/20 10:00 Cefepime HCl 2 gm/ Sodium Chloride 100 ml @ 100 mls/hr TID IV 09/27/20 15:00 09/27/20 11:00 DC Cefepime HCl 2 gm/ Sodium Chloride 100 ml @ 100 mls/hr Q8H IV 09/27/20 17:00 09/27/20 12:23 DC Cefepime HCl 2 gm/ Sodium Chloride 100 ml @ 100 mls/hr Q8H IV 09/27/20 17:00 09/28/20 20:56 DC 09/28/20 17:00 Vancomycin HCl 1250 mg/Sodium Chloride 300 ml @ 100 mls/hr Q12H IV 09/27/20 21:00 09/27/20 19:31 DC Vancomycin HCl 1250 mg/Sodium Chloride 250 ml @ 175 mls/hr Q12H IV 09/27/20 21:00 09/29/20 09:23 DC 09/28/20 09:00 Sterile Water (Water) 1,000 ml STK-MED ONCE .ROUTE 09/27/20 23:56 09/27/20 23:57 DC Sterile Water (Water) 1,000 ml STK-MED ONCE .ROUTE 09/28/20 00:05 09/28/20 00:06 DC Sterile Water (Water) 1,000 ml STK-MED ONCE .ROUTE 09/28/20 00:06 09/28/20 00:06 DC Sodium Chloride 250 ml @ 500 mls/hr Q30M PRN IV FEVER 09/28/20 01:00 09/28/20 03:00 DC 09/28/20 01:30 Meropenem 1000 mg/ Sodium Chloride 100 ml @ 200 mls/hr Q8H IV 09/29/20 00:00 10/05/20 16:00 09/29/20 08:00 Sterile Water (Water) 1,000 ml STK-MED ONCE .ROUTE 09/28/20 23:59 09/28/20 23:59 DC Sodium Chloride 100 ml @ ud STK-MED ONCE IV 09/29/20 00:43 09/29/20 00:44 DC Sodium Chloride 500 ml @ ud STK-MED ONCE IV 09/29/20 07:44 09/29/20 07:45 DC Vancomycin HCl 1 gm/Sodium Chloride 250 ml @ 175 mls/hr Q12H IV 09/29/20 10:00 10/29/20 09:59 09/29/20 10:30 Sodium Chloride 1,000 ml @ ud STK-MED ONCE .ROUTE 09/29/20 10:28 09/29/20 10:29 DC VTE VTE Risk Total Score: 2 VTE Risk Score VTE Risk: Score 0-1 = Low Risk (Aggressive mobilization; early ambulation; no VTE prophylaxis required) Score 2: Moderate Risk (Intermittent/Pneumatic Compression Device OR Lovenox/Heparin/Coumadin) Score 3-4: High Risk (Intermittent/Pneumatic Compression Device AND Lovenox/Heparin/Coumadin) Score > or =5: Highest Risk (Intermittent/Pneumatic Compression Device AND Lovenox/Heparin/Coumadin) Antico:Hep/LMWH/Coum/Xarelto: Yes Mechanical device ordered: Yes VTE VTE Present on Admission: No Currently receiving anticoagul: No VTE Risk Total Score: 2 Antico:Hep/LMWH/Coum/Xarelto: Yes Mechanical device ordered: Yes Assessment/Plan Assessment/Plan Plan #1 Neuro: The pt is intubated and sedated on prop, precedex and fentanyl. #2 CV: THe pt has been normotensive but will prn need levo to keep MAP >65. #3 Pulm: The pt is s/p tx with remdesivir lovenox and decadron. VEnt settings down to 60% on 10 PEEP. The pt also has evidence of PNA with enterobacter on meropenem and vanco. WOujld treat 7 days after starting meropenem or per ID recs. His o2 sat is improved with resolution on fevers and can likely titrate down further. #4 GI: COnt tf #5 Renal: Monitor for renal failure, replete lytes, lasix PRN #6 ID: [id number] , pt with enterobacter PNA. Enterobacter is a SPACE organism and can have ampc inducibility and ESBL production after cefepime exposure. Appreciate ID recs who switched to meropenem and now afebrile. Likely that organism was resistant. Cont meropenem for another 7 days or for how long ID recommends. #7 Endo: keep FS 150-180 #8 Heme: Tx plats >10k hgb >7 #9 PPx: lovenox and PPI I discussed pt with JEWELRY FINISHER and completed the video assessment with assistance from the JEWELRY FINISHER. I spent a total of greater than 60 minutes formulating critical care for this patient today. I saw this patient and completed a full visual exam via audio-visual HIPAA compliant technology. ALVARO HACKETT MD Sep 29, 2020 12:46
[2020-09-29] MEDS: PRECEDEX 400 MCG/100 ML INJECT 100 ML IV SCH (13:02)
[2020-09-29] MEDS: D5W-1/2NS 1000ML 1,000 ML IV SCH (17:00)
[2020-09-29] MEDS ORDERED: NS 250ML 250 ML IV ONE (23:09)
--- NOTE | 2020-09-29 23:59 | PRM.PN ---
Subjective Subjective Date: Sep 29, 2020 Time: 23:58 Subjective Rounded with TeleMed critical care doctor CRYPTOGRAPHY TEACHER and ICU RT at the patient's bedside. We have been able to wean down his PEEP and FiO2 he has been afebrile after starting the meropenem other cultures have remained negative to date aside from the Enterobacter species which we are treating with meropenem will discontinue vancomycin VTE VTE Risk Total Score: 2 VTE Risk Score VTE Risk: Score 0-1 = Low Risk (Aggressive mobilization; early ambulation; no VTE prophylaxis required) Score 2: Moderate Risk (Intermittent/Pneumatic Compression Device OR Lovenox/Heparin/Coumadin) Score 3-4: High Risk (Intermittent/Pneumatic Compression Device AND Lovenox/Heparin/Coumadin) Score > or =5: Highest Risk (Intermittent/Pneumatic Compression Device AND Lovenox/Heparin/Coumadin) Antico:Hep/LMWH/Coum/Xarelto: Yes Mechanical device ordered: Yes Review of Systems Constitutional: Weakness; No: Fever, Chills, Sweats, Malaise, Other Eyes: No: Pain, Vision change, Conjunctivae inflammation, Eyelid inflammation, Other, Redness ENT: No: Ear pain, Ear discharge, Nose pain, Nose discharge, Nose congestion, Mouth pain, Mouth swelling, Throat pain, Throat swelling, Other Respiratory: Shortness of breath Cardiovascular: No: Chest Pain, Palpitations, Orthopnea, Paroxysmal Noc. Dyspnea, Edema, Lt Headedness, Other Gastrointestinal: No: Nausea, Vomiting, Abdominal Pain, Diarrhea, Constipation, Melena, Hematochezia, Other Genitourinary: No Dysuria, No Frequency, No Incontinence, No Hematuria, No Retention, No Other Musculoskeletal: No: other, neck pain, shoulder pain, arm pain, back pain, hand pain, leg pain, foot pain Skin: No: Rash, Lesions, Jaundice, Bruising, Other Allergies: Coded Allergies: No Known Allergies (Unverified , 09/03/20) Scheduled Lisinopril (Lisinopril), 1 TAB PO BID, (Reported) Metformin Hcl (Metformin Hcl), 1,000 MG PO BID, (Reported) Objective Vitals and I/O Vital Sign - Last 24 Hours 09/29/20 09/29/20 09/29/20 09/29/20 07:00 07:15 07:30 07:30 Temp 99.0 99.0 99.0 Pulse 88 89 88 88 Resp B/P (MAP) 98/55 (69) 107/49 (68) 106/51 (69) 107/48 (67) Pulse Ox 100 100 100 100 FiO2 70 09/29/20 09/29/20 09/29/20 09/29/20 07:35 07:45 08:00 08:00 Temp 99.0 Pulse 88 87 92 Resp B/P (MAP) 99/49 (66) Pulse Ox 100 100 100 O2 Delivery Mechanical Ventilator FiO2 70 70 09/29/20 09/29/20 09/29/20 09/29/20 08:00 08:00 09:15 09:30 Temp 99.1 99.3 99.1 Pulse 94 93 92 Resp B/P (MAP) 117/74 (88) 97/45 (62) 98/46 (63) 144/61 (88) Pulse Ox 97 100 99 O2 Delivery Mechanical Ventilator FiO2 70 09/29/20 09/29/20 09/29/20 09/29/20 09:45 10:00 10:15 10:30 Temp 99.0 98.8 98.6 98.6 Pulse 91 90 90 98 Resp B/P (MAP) 104/48 (66) 102/57 (72) 103/47 (65) 146/54 (84) 114/50 (71) Pulse Ox 99 100 100 85 09/29/20 09/29/20 09/29/20 09/29/20 10:45 10:47 11:00 11:15 Temp 98.6 98.6 98.6 Pulse 90 90 89 89 Resp B/P (MAP) 110/47 (68) 95/50 (65) 111/46 (67) 111/47 (68) Pulse Ox 99 99 100 100 FiO2 70 09/29/20 09/29/20 09/29/20 09/29/20 11:30 11:45 12:00 12:00 Temp 98.4 98.2 98.2 Pulse 88 88 90 Resp B/P (MAP) 113/46 (68) 116/47 (70) 101/54 (70) 125/52 (76) Pulse Ox 100 100 100 O2 Delivery Mechanical Ventilator FiO2 60 09/29/20 09/29/20 09/29/20 09/29/20 12:00 12:00 12:15 12:30 Temp 98.2 98.2 Pulse 89 90 88 Resp B/P (MAP) 119/49 (72) 110/47 (68) Pulse Ox 98 99 99 O2 Delivery Mechanical Ventilator FiO2 60 09/29/20 09/29/20 09/29/20 09/29/20 12:45 13:00 13:15 13:30 Temp 98.2 98.2 98.2 98.2 Pulse 89 90 91 97 Resp B/P (MAP) 111/47 (68) 104/56 (72) 109/46 (67) 131/51 (77) 121/49 (73) Pulse Ox 99 99 99 100 09/29/20 09/29/20 09/29/20 09/29/20 13:45 14:16 17:27 19:00 Temp 98.6 99.1 Pulse 100 94 90 99 Resp 17 B/P (MAP) 131/48 (75) 99/51 (67) 137/52 (80) Pulse Ox 98 98 96 94 FiO2 60 50 09/29/20 09/29/20 09/29/20 09/29/20 19:15 19:30 20:00 20:00 Temp 99.3 99.3 Pulse 100 102 75 Resp 20 19 24 B/P (MAP) 142/54 (83) 147/55 (85) Pulse Ox 95 94 98 O2 Delivery Mechanical Ventilator FiO2 70 09/29/20 09/29/20 20:10 20:10 Pulse 92 92 Resp Pulse Ox 95 95 O2 Delivery Mechanical Ventilator FiO2 50 50 Intake and Output 09/29/20 07:00 Intake Total 3904.05 ml Output Total 2595 ml Balance 1309.05 ml General: Other (intubated/sedated) HEENT: PERRLA, Other (ET tube in place) Neck: No JVD Lungs: Other (diminished bilaterally ) Heart: Regular rate, Normal S1, Normal S2, Other (NSR) Abdomen: Normal bowel sounds, Soft Extremities: No clubbing, No cyanosis, No edema Neuro: Other (intubated/sedated) Psych/Mental Status: Other (intubated/sedated) All Results(Lab/Rad) Laboratory Tests Test 09/03/20 21:02 09/04/20 04:47 09/04/20 05:59 09/04/20 07:15 Bedside Glucose 164 120 123 White Blood Count 8.1 10^3/uL Red Blood Count 4.89 10^6/uL Hemoglobin 14.2 g/dL Hematocrit 40.7 % Mean Corpuscular Volume 83.2 fL Mean Corpuscular Hemoglobin 29.0 pg Mean Corpuscular Hemoglobin Concent 34.9 g/dL Red Cell Distribution Width 12.0 % Platelet Count 185 10^3/uL Mean Platelet Volume 9.6 fL Neutrophils (%) (Auto) 83.5 % Lymphocytes (%) (Auto) 9.7 % Monocytes (%) (Auto) 6.0 % Neutrophils # (Auto) 6.8 10^3/uL Lymphocytes # (Auto) 0.79 10^3/uL1 Monocytes # (Auto) 0.5 10^3/uL Absolute Immature Granulocyte (auto 0.05 10^3 u/L Absolute Eosinophils (auto) 0.0 10^3/uL Immature Granulocytes % 0.60 % Eosinophils % 0.0 % Basophils % 0.2 % Basophils # 0.0 10^3/uL Sodium Level 132 mmol/L Potassium Level 3.6 mmol/L Chloride Level 97.0 mmol/L Carbon Dioxide Level 26.0 mmol/L Anion Gap 12.6 Blood Urea Nitrogen 21 mg/dL Creatinine 1.18 mg/dL Estimated GFR () 75.2 Est GFR (CKD-EPI)(Non-Afr Malaysian) 62.1 BUN/Creatinine Ratio 17.0 Glucose Level 118 mg/dL Hemoglobin A1c 8.0 % Calcium Level 8.3 mg/dL Total Bilirubin 0.7 mg/dL Aspartate Amino Transf (AST/SGOT) 55 U/L Alanine Aminotransferase (ALT/SGPT) 37 U/L Alkaline Phosphatase 40 U/L Total Protein 6.5 g/dL Albumin 2.3 g/dL Globulin 4.2 Albumin/Globulin Ratio 0.547 Triglycerides Level 65 mg/dL Cholesterol Level 76 mg/dL LDL Cholesterol, Calculated 26.0 VLDL Cholesterol, Calculated 13.0 HDL Cholesterol 37 mg/dL Cholesterol Ratio (LDL/HDL) 0.7 Cholesterol/HDL Ratio [id number] Test 09/04/20 11:37 09/04/20 12:22 09/04/20 16:36 Bedside Glucose 159 131 D-Dimer 1.85 mg/L Troponin I < 0.02 ng/mL Pro-B-Type Natriuretic Peptide 97 pg/mL Current Medications Medications (Trade) Dose Ordered Sig/Adrianna Route PRN Reason Start Time Stop Time Status Last Admin Dose Admin Acetaminophen (Tylenol) 325 mg Q4H PRN PO PAIN 1 - 3 09/03/20 19:00 10/03/20 18:59 Morphine Sulfate (Morphine Sulfate) 2 mg Q4H PRN IV PAIN 4 - 6 09/03/20 19:00 09/04/20 19:28 DC Insulin Human Lispro (Humalog) 0-140 0 Units 141-200... ACHS SQ 09/03/20 21:00 10/03/20 20:59 09/04/20 11:30 Dextrose 1,000 ml @ 100 mls/hr Q10H PRN IV HYPOGLYCEMIA 09/03/20 19:00 10/03/20 18:59 Dextrose (Dextrose 50%-Water Syringe) 25 ml STAT PRN IV HYPOGLYCEMIA 09/03/20 19:00 10/03/20 18:59 Glucagon (Glucagen) 1 mg STAT STAT IV 09/03/20 18:44 09/03/20 18:56 DC Heparin Sodium (Porcine) (Heparin) 5,000 unit Q8HR SQ 09/03/20 22:00 10/03/20 21:59 09/04/20 14:00 Lisinopril (Zestril) 20 mg BID PO 09/03/20 21:00 10/03/20 20:59 09/04/20 08:22 Azithromycin 500 mg/Sodium Chloride 250 ml @ 175 mls/hr Q24HRS IV 09/03/20 20:30 09/04/20 08:15 DC 09/03/20 21:11 Ceftriaxone Sodium 1000 mg/ Sodium Chloride 100 ml @ 100 mls/hr Q24HRS IV 09/03/20 19:30 09/04/20 08:15 DC 09/03/20 19:39 Sodium Chloride 1,000 ml @ 75 mls/hr [id number] IV 09/03/20 20:00 10/03/20 19:59 09/04/20 09:20 Ceftriaxone Sodium (Rocephin) 1,000 mg STK-MED ONCE .ROUTE 09/03/20 19:35 09/03/20 19:35 DC Sodium Chloride 100 ml @ ud STK-MED ONCE IV 09/03/20 19:35 09/03/20 19:36 DC Zinc Sulfate (Zinc Sulfate) 220 mg DAILY PO 09/04/20 09:00 10/04/20 08:59 09/04/20 08:22 Ascorbic Acid (Vitamin C) 500 mg BID PO 09/04/20 09:00 10/04/20 08:59 09/04/20 08:22 Morphine Sulfate (Morphine Sulfate) 2 mg Q4H PRN IV PAIN 4 - 6 09/04/20 19:28 10/03/20 18:59 Course Sepsis Screening Results: Posi: POSITIVE++ Sepsis Qualifier/Stage: SEVERE SEPSIS RISK DATE SEEN BY PHYSICIAN: Sep 11, 2020 TIME SEEN BY PROVIDER: 13:20 Duration or Total Time Spent w: 60 mins Vitals & review Data Vital Sign - Last 24 Hours 09/11/20 09/11/20 09/11/20 09/11/20 07:00 07:00 07:30 08:00 Temp 98.0 Pulse 62 67 Resp 28 27 B/P (MAP) 160/83 (108) 150/75 (100) Pulse Ox 96 91 O2 Delivery Non-Rebreather O2 Flow Rate 15.00 09/11/20 09/11/20 09/11/20 09/11/20 08:25 08:40 09:00 09:00 Pulse 65 87 81 Resp 22 19 B/P (MAP) 149/72 149/86 Pulse Ox 93 94 O2 Delivery Non-Rebreather O2 Flow Rate 15.00 FiO2 100 09/11/20 09/11/20 09/11/20 09/11/20 09:00 10:00 11:00 12:00 Pulse 67 74 68 Resp 25 30 35 B/P (MAP) 149/72 (97) 128/69 (88) 134/65 (88) Pulse Ox 93 88 91 O2 Delivery Non-Rebreather O2 Flow Rate 15.00 Intake and Output 09/11/20 07:00 Intake Total 335 ml Output Total 670 ml Balance -335 ml Laboratory Tests Test 09/09/20 16:50 09/09/20 19:54 09/10/20 04:26 09/10/20 04:54 Bedside Glucose 192 219 93 White Blood Count 11.8 10^3/uL Red Blood Count 4.77 10^6/uL Hemoglobin 13.8 g/dL Hematocrit 39.8 % Mean Corpuscular Volume 83.4 fL Mean Corpuscular Hemoglobin 28.9 pg Mean Corpuscular Hemoglobin Concent 34.7 g/dL Red Cell Distribution Width 12.3 % Platelet Count 361 10^3/uL Mean Platelet Volume 9.2 fL Neutrophils (%) (Auto) 84.0 % Lymphocytes (%) (Auto) 9.0 % Monocytes (%) (Auto) 4.8 % Neutrophils # (Auto) 9.9 10^3/uL Lymphocytes # (Auto) 1.06 10^3/uL1 Monocytes # (Auto) 0.6 10^3/uL Absolute Immature Granulocyte (auto 0.23 10^3 u/L Absolute Eosinophils (auto) 0.0 10^3/uL Immature Granulocytes % 2.00 % Eosinophils % 0.1 % Basophils % 0.1 % Basophils # 0.0 10^3/uL D-Dimer 8.09 mg/L Sodium Level 140 mmol/L Potassium Level 3.7 mmol/L Chloride Level 106.0 mmol/L Carbon Dioxide Level 27.2 mmol/L Anion Gap 10.5 Blood Urea Nitrogen 19 mg/dL Creatinine 0.96 mg/dL Estimated GFR () 95.4 Est GFR (CKD-EPI)(Non-Afr Malaysian) 78.9 BUN/Creatinine Ratio 19.0 Glucose Level 100 mg/dL Calcium Level 7.9 mg/dL Phosphorus Level 2.4 mg/dL Magnesium Level 1.8 mg/dL Ferritin 1073 ng/mL Total Bilirubin 0.7 mg/dL Aspartate Amino Transf (AST/SGOT) 27 U/L Alanine Aminotransferase (ALT/SGPT) 29 U/L Alkaline Phosphatase 58 U/L Lactate Dehydrogenase 295 U/L Total Creatine Kinase 41 U/L C-Reactive Protein 3.25 mg/dL Total Protein 5.7 g/dL Albumin 2.0 g/dL Globulin 3.7 Albumin/Globulin Ratio 0.540 Procalcitonin 0.10 ng/mL Test 09/10/20 07:10 09/10/20 11:33 09/10/20 16:46 09/10/20 19:51 Bedside Glucose 134 173 178 169 Test 09/11/20 01:56 09/11/20 02:03 09/11/20 05:13 09/11/20 05:14 Bedside Glucose 159 145 Blood Gas Sample Site LB Blood Gas pH 7.398 Blood Gas PCO2 31.4 mmHg Blood Gas PO2 54.5 mmHg Blood Gas HCO3 18.9 mmol/L Blood Gas Base Excess -4.8 mmol/L Abdi Test POSITIVE Arterial Blood Oxygen Saturation 87.1 % Deoxyhemoglobin 12.9 % Carboxyhemoglobin 0.3 % Methemoglobin 0.0 % Total Hemoglobin 13.4 % Total Oxygen Concentration 16.3 % Blood Gas Temperature 37 Oxygen Delivery Method (LAB) NON-REBREATHER MASK FiO2 100 % Total Carbon Dioxide 19.9 mmol/L White Blood Count 11.5 10^3/uL Red Blood Count 4.66 10^6/uL Hemoglobin 13.4 g/dL Hematocrit 39.1 % Mean Corpuscular Volume 83.9 fL Mean Corpuscular Hemoglobin 28.8 pg Mean Corpuscular Hemoglobin Concent 34.3 g/dL Red Cell Distribution Width 12.2 % Platelet Count 296 10^3/uL Mean Platelet Volume 9.2 fL Neutrophils (%) (Auto) 87.0 % Lymphocytes (%) (Auto) 5.9 % Monocytes (%) (Auto) 5.0 % Neutrophils # (Auto) 10.0 10^3/uL Lymphocytes # (Auto) 0.68 10^3/uL1 Monocytes # (Auto) 0.6 10^3/uL Absolute Immature Granulocyte (auto 0.23 10^3 u/L Absolute Eosinophils (auto) 0.0 10^3/uL Immature Granulocytes % 2.00 % Eosinophils % 0.0 % Basophils % 0.1 % Basophils # 0.0 10^3/uL Sodium Level 139 mmol/L Potassium Level 3.9 mmol/L Chloride Level 106.0 mmol/L Carbon Dioxide Level 23.2 mmol/L Anion Gap 13.7 Blood Urea Nitrogen 22 mg/dL Creatinine 0.88 mg/dL Estimated GFR () 105.5 Est GFR (CKD-EPI)(Non-Afr Malaysian) 87.2 BUN/Creatinine Ratio 25.0 Glucose Level 151 mg/dL Calcium Level 8.3 mg/dL Phosphorus Level 3.1 mg/dL Magnesium Level 2.3 mg/dL Total Bilirubin 0.7 mg/dL Aspartate Amino Transf (AST/SGOT) 27 U/L Alanine Aminotransferase (ALT/SGPT) 23 U/L Alkaline Phosphatase 71 U/L Total Protein 5.7 g/dL Albumin 2.0 g/dL Globulin 3.7 Albumin/Globulin Ratio 0.540 Test 09/11/20 05:41 09/11/20 07:35 09/11/20 07:50 09/11/20 11:42 Blood Gas Sample Site RT RADIAL ARTERY RR Blood Gas pH 7.405 7.398 Blood Gas PCO2 35.2 mmHg 36.1 mmHg Blood Gas PO2 53.5 mmHg 52.5 mmHg Blood Gas HCO3 21.6 mmol/L 21.8 mmol/L Blood Gas Base Excess -2.5 mmol/L -2.5 mmol/L Abdi Test POSITIVE POSITIVE Arterial Blood Oxygen Saturation 87.9 % 86.0 % Deoxyhemoglobin 12.1 % 13.9 % Carboxyhemoglobin 0 % 0.6 % Methemoglobin 0.1 % 0.3 % Total Hemoglobin 14.0 % 13.9 % Total Oxygen Concentration 17.3 % 16.6 % Blood Gas Temperature 37 37 Oxygen Delivery Method (LAB) NON-REBREATHER MASK NON-REBREATHER MASK FiO2 100 % 100 % Total Carbon Dioxide 22.6 mmol/L 22.9 mmol/L Bedside Glucose 133 185 Current Medications Medications (Trade) Dose Ordered Sig/Adrianna PRN Reason Start Time Stop Time Status Last Admin Enoxaparin Sodium (Lovenox) 80 mg BID 09/09/20 19:00 10/04/20 20:29 09/11/20 09:00 Lorazepam (Ativan) 1 mg Q4HR PRN ANXIETY 09/11/20 00:30 10/11/20 00:29 09/11/20 09:00 Metoprolol Tartrate (Lopresser) 25 mg BID 09/09/20 21:00 10/09/20 20:59 09/11/20 09:00 Remdesivir 100 mg/ Sodium Chloride 120 ml @ 111.111 mls/hr Q24HRS 09/08/20 19:00 10/08/20 18:59 09/10/20 18:00 LEVEL 1 SEPSIS INFECTION CRITE: Cough/Shortness of Breath, Flu-Pneumonia LEVEL 2-SIRS (LIST ALL THAT AP: RR>20/min, WBC>[id number] Cardiovascular Evidence: Not Assessed or None Hematologic Evidence: None/Not assessed Hepatic Evidence: None/Not assessed Metabolic Evidence: None/Not assessed Neurological Evidence: Altered Mental Status Respiratory Evidence: Acute Resp failure, Need for O2 to keep>90%, O2 SAT<90room air Renal Evidence: None/Not assessed O2 Sat by Pulse Oximetry: 95 Oxygen Flow Rate: 70.00 Assessment/Plan Assessment/Plan Assessment/Plan A 64 y.o. male w/ PMHx significant for HTN, HLD, DM II, who was admitted on Sep 03 for Acute Hypoxemic respiratory failure. Initially, his COVID testing returned negative and his hypoxemia was thought to be 2/2 another etiology. However, after no etiology could be elucidated, a COVID PCR was repeated and returned positive. He was then started on treatment for COVID-19 with Azithromycin, steroids, Remdesivir, CCP, and Zinc/Vitamin C. Despite treatment, his respiratory status slowly declined and he was intubated on Sep 13. At this t grupo, he is stable on current sedation and intermittently requiring pressors. He was started on proning protocol on Sep 18, 16h prone and 8h supine. This was held starting the evening of Sep 21 due to periorbital edema and chemosis, which resolved spontaneously. He fevered again to 101F on Sep 23 and had repeat Blood, urine, and sputum cultures drawn. At this time, he has made very little progress towards being weaned from the vent and is approaching 15 days of ventilation. Discussed this with his daughters, and explained that he would not be a good candidate for a tracheostomy as he has made very little progress to this point. However, will defer further discussions for a later date. Recurrent fever despite broad spectrum antibiotics will consult ID and consider changing lines. Switch Cefepime to Meropenem due to Ceftriaxone resistance and possible inducible resistance to all cephalosporins, including cefepime COVID PNEUMONIA SEVERE ARDS ACUTE HYPOXEMIC RESPIRATORY FAILURE SEPTIC SHOCK - Telemed Intensivists following; appreciate assistance with vent and medical management - Completed 5 days of Remdesivir - Completed 5 days of Azithromycin - Pt was started on Dexamethasone initially for treatment of COVID; he was transitioned to Methylprednisolone at some point, which was discontinued on Sep 17. Taper steroids - Pt has completed 5 days of Rocephin for CAP PNA today; will discontinue - Duonebs q4h scheduled - Given P/F ratio, will start proning. 16h prone, 8h supine. holding proning due to periorbital edema and chemosis - continue sedation with RASS goal of < - 2 - minimize vec pushes if possible - Pt meets criteria for septic shock given +SIRS, infection, and hypotension requiring pressors - goal fluid balance should be negative to keep Pt as dry as possible - follow repeat Blood/urine/sputum cultures; so far no growth to date on blood cultures and urine cultures. Sputum cultures have grown out enterococcus species being treated with Meropenem, vancomycin has been discontinued per ID recom mendations - decreased lasix to 20mg daily ESSENTIAL HYPERTENSION - stable with pressors - holding home antihypertensives for now T2DM - blood sugars very labile - decreased insulin to just Sliding scale due to hypoglycemia at night - enteral feeding ongoing STAGE I ZOEY, resolved - likely pre-renal given hypotension and septic shock requiring pressors - continue to monitor Cr closely; currently on the downtrend - avoid further hypotension Keep MAP > 60 - avoid nephrotoxins where possible - monitor UOP; - Keep pt as dry as possible while maintaining UOP/renal function Hypoalbuminemia, improved - albumin very low at 1.2 [09/21]; improved to 1.4 with 25% Albumin - Gave 25% Albumin q8h x3 Sep 22. Albumin improved to 2.5 - monitor Feeding - GLUCERNA 1.5CAL Analgesia - fentanyl gtt Sedation - Propofol. precedex, versed VTE ppx - lovenox Head of bed - 30 degrees GI ppx - protonix Weened PEEP to 8 and FiO2 to 50% Bowels care - having regular BMs UOP - Crawford in place Sputum culture results FINAL REPORT [facility]LEBSIELLA AEROGENES E AEROG[facility] RX --------- --- * CEFEPIME <=2 S * CEFTRIAXONE >2 R * CIPROFLOXACIN <=0.25 S * ERTAPENEM <=0.5 S * GENTAMICIN <=4 S * LEVOFLOXACIN <=0.5 S * MEROPENEM <=1 S * TOBRAMYCIN <=4 S * TRIMETHOPRIM-SULFAMETHOXAZOLE <=2/38 S * PIPERACILLIN/TAZOBACTAM <=16 S Infectious Disease Recomendations: A 64 y.o. male w HTN, HLD, DM II, who was admitted on Sep 03 for respiratory failure due to COVID; now intubated, and having febrile episodes since past few days along with increased FiO2 dependency. ASSESSMENT: -acute hypoxemic resp failure. intubated since 09/13 -COVID pneumonia diagnosed on 09/05. s/p Remdesevir and Steroids. -Fever at least since 09/23. likely due to VAP. Enterobacter spp isolated from resp culture which is Ceftriaxone resistance, and for all practical purposes will confer class resistance against all cephalosporins. -Leukocytosis due to above. -CRP is showing up agrawal trend -CXR persistent infiltrates noted. -Procalcitonin elevated. -severe sepsis. intermittent levophed dependent. -mild eosinophilia noted -elevated D dimer. patient already on therapeutic Lovenox. RECOMMENDATION: -if B cx remain negative then stop Vancomycin tomorrow. -switch Cefepime to Meropenem 1 gm iv q8 for 7 days. EOT 10/06 -recheck CRP, LDH, Ferritin. 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 Thanks for the consult please call me with any questions Amy Zamudoi MD Infectious Diseases we will sign off Critical Care Recommendations: #1 Neuro: The pt is intubated and sedated on prop, precedex and fentanyl. #2 CV: THe pt has been normotensive but will prn need levo to keep MAP >65. #3 Pulm: The pt is s/p tx with remdesivir lovenox and decadron. VEnt settings down to 60% on 10 PEEP. The pt also has evidence of PNA with enterobacter on meropenem and vanco. WOujld treat 7 days after starting meropenem or per ID recs. His o2 sat is improved with resolution on fevers and can likely titrate down further. #4 GI: COnt tf #5 Renal: Monitor for renal failure, replete lytes, lasix PRN #6 ID: [id number] + , pt with enterobacter PNA. Enterobacter is a SPACE organism and can have ampc inducibility and ESBL production after cefepime exposure. Appreciate ID recs who switched to meropenem and now afebrile. Likely that organism was resistant. Cont meropenem for another 7 days or for how long ID recommends. #7 Endo: keep FS 150-180 #8 Heme: Tx plats >10k hgb >7 #9 PPx: lovenox and PPI HUSEYIN SHERMAN MD Sep 29, 2020 23:58
[2020-09-30] VITALS (42 sets, daily range): BP systolic 0–163; BP diastolic 0–73
[2020-09-30] MEDS ORDERED: WATER ONE (03:14)
[2020-09-30 05:43] LABS: BASOPHIL % 0.3 % (0.0-0.2); EOSINOPHIL # 1.1 10^3/uL (0.0-0.2); EOSINOPHIL % 10.1 % (0.0-5.0); LYMPHOCYTES # 1.32 10^3/uL1 (1.0-4.8); MEAN CORP HGB 28.9 pg (26-34); MONOCYTES # 0.6 10^3/uL (0.3-0.8); MONOCYTES % 5.6 % (5.0-12.0); NEUTROPHIL # 7.2 10^3/uL (1.8-7.7); NEUTROPHILS % 65.5 % (41.0-85.0); PLATELET COUNT 369 10^3/uL (150-400); RED CELL DISTRIBUTION WIDTH 13.9 % (11.5-14.5)
[2020-09-30] MEDS: HUMALOG SQ SCH (06:00)
[2020-09-30 06:07] LABS: CALCIUM 8.7 mg/dL (8.4-10.5); CARBON DIOXIDE 29.1 mmol/L (20.0-32)
[2020-09-30] MEDS ORDERED: NS 250ML 250 ML IV ONE (07:22)
[2020-09-30] MEDS ORDERED: LEVOPHED ONE (07:24)
[2020-09-30] MEDS: MERREM 1,000 MG in NS 100ML 100 ML IV SCH (07:55)
[2020-09-30] MEDS: LEVOPHED 8 MG in NS 250ML 250 ML IV SCH (07:55)
[2020-09-30] MEDS: CEPHULAC NG SCH (07:57)
[2020-09-30] MEDS: COLACE PO SCH (07:58)
[2020-09-30 08:00] LABS: ABG PCO2 45.8 mmHg (35.0-45.0); ABG PH 7.388 (7.350-7.450); BE(B) 1.6 mmol/L (-2.0-2.0); pO2 65.3 mmHg (80.0-100.0)
--- NOTE | 2020-09-30 08:00 | NUR ---
Dr. Girard at bedside, Levophed started for arterial blood pressure of 77/48. Will titrate to keep map 65 and above. Precedex placed on hold.
[2020-09-30] MEDS: PROTONIX IV IV SCH (08:48)
[2020-09-30] MEDS: SEROQUEL PO SCH (08:48)
[2020-09-30] MEDS: LOVENOX SQ SCH (08:49)
[2020-09-30] MEDS: VITAMIN C PO SCH (08:49)
[2020-09-30] MEDS: ZINC SULFATE PO SCH (08:49)
[2020-09-30] MEDS: DIPRIVAN IV SCH (08:51)
[2020-09-30] MEDS: LASIX IV SCH (09:00)
[2020-09-30] MEDS: PRECEDEX 400 MCG/100 ML INJECT 100 ML IV SCH (09:45)
--- NOTE | 2020-09-30 11:00 | NUR ---
Family brought to private room outside of the ICU to speak about patients current status. Dr. Soto gave a thorough break down of patients care since admission. Family had all questions answered appropriately. Family made the decision to change code status to do not resuscitate and transition to comfort care measures.
--- NOTE | 2020-09-30 11:45 | NUR ---
Family allowed to visit patient at bedside, education given regarding risks of entering room. Demonstrated proper don and doffing of proper protective equipment including proper hand hygiene.
--- NOTE | 2020-09-30 11:54 | TELE.CONS ---
Consultation Reason for Consult: Reason for Consultation: resp failure, covid Review of Systems Constitutional: Weakness; No: Fever, Chills, Sweats, Malaise, Other Eyes: No: Pain, Vision change, Conjunctivae inflammation, Eyelid inflammation, Other, Redness ENT: No: Ear pain, Ear discharge, Nose pain, Nose discharge, Nose congestion, Mouth pain, Mouth swelling, Throat pain, Throat swelling, Other Respiratory: Shortness of breath Cardiovascular: No: Chest Pain, Palpitations, Orthopnea, Paroxysmal Noc. Dyspnea, Edema, Lt Headedness, Other Gastrointestinal: No: Nausea, Vomiting, Abdominal Pain, Diarrhea, Constipation, Melena, Hematochezia, Other Genitourinary: No Dysuria, No Frequency, No Incontinence, No Hematuria, No Retention, No Other Musculoskeletal: No: other, neck pain, shoulder pain, arm pain, back pain, hand pain, leg pain, foot pain Skin: No: Rash, Lesions, Jaundice, Bruising, Other Allergies: Coded Allergies: No Known Allergies (Unverified , 09/03/20) Scheduled Lisinopril (Lisinopril), 1 TAB PO BID, (Reported) Metformin Hcl (Metformin Hcl), 1,000 MG PO BID, (Reported) VITALS REVIEW VITALS Vital Sign - Last 24 Hours 09/30/20 09/30/20 08:30 08:31 Pulse 72 72 Resp 30 28 Pulse Ox 98 98 O2 Delivery Mechanical Ventilator FiO2 50 50 Intake and Output 09/30/20 06:00 Intake Total 2422.52 ml Output Total 625 ml Balance 1797.52 ml VTE VTE Risk Total Score: 2 VTE Risk Score VTE Risk: Score 0-1 = Low Risk (Aggressive mobilization; early ambulation; no VTE prophylaxis required) Score 2: Moderate Risk (Intermittent/Pneumatic Compression Device OR Lovenox/Heparin/Coumadin) Score 3-4: High Risk (Intermittent/Pneumatic Compression Device AND Lovenox/Heparin/Coumadin) Score > or =5: Highest Risk (Intermittent/Pneumatic Compression Device AND Lovenox/Heparin/Coumadin) Antico:Hep/LMWH/Coum/Xarelto: Yes Mechanical device ordered: Yes VTE VTE Present on Admission: No Currently receiving anticoagul: No VTE Risk Total Score: 2 Antico:Hep/LMWH/Coum/Xarelto: Yes Mechanical device ordered: Yes Assessment/Plan Assessment/Plan Assessment/Plan #1 Neuro: The pt is intubated and sedated on prop, precedex and fentanyl. #2 CV: THe pt has been normotensive but will prn need levo to keep MAP >65. #3 Pulm: The pt is s/p tx with remdesivir lovenox and decadron. Vent settings down to 50% on 8 PEEP. The pt also has evidence of PNA with enterobacter on meropenem. ID f/u. No further change in vent settings today after reviewing ABG. Family discussion regarding trach vs comfort measures. #4 GI: Cont tf #5 Renal: Monitor for renal failure, replete lytes, lasix PRN #6 ID: [email or web address] + , pt with enterobacter PNA. Cont meropenem #7 Endo: keep FS 150-180 #8 Heme: Tx plats >10k hgb >7 #9 PPx: lovenox and PPI I discussed pt with CONFIGURATOR and completed the video assessment with assistance from the CONFIGURATOR. I spent a total of greater than 60 minutes formulating critical care for this patient today. I saw this patient and completed a full visual exam via audio-visual HIPAA compliant technology. TAMICA JESSICA MD Sep 30, 2020 11:54
[2020-09-30] MEDS ORDERED: MORPHINE SULFATE IV PRN (12:00)
[2020-09-30] MEDS ORDERED: ATIVAN IV PRN (12:00)
--- NOTE | 2020-09-30 12:11 | PRM.PN ---
Course Sepsis Screening Results: Posi: POSITIVE++ Sepsis Qualifier/Stage: SEVERE SEPSIS RISK DATE SEEN BY PHYSICIAN: Sep 11, 2020 TIME SEEN BY PROVIDER: 13:20 Duration or Total Time Spent w: 43 Vitals & review Data Vital Sign - Last 24 Hours 09/11/20 09/11/20 09/11/20 09/11/20 07:00 07:00 07:30 08:00 Temp 98.0 Pulse 62 67 Resp 28 27 B/P (MAP) 160/83 (108) 150/75 (100) Pulse Ox 96 91 O2 Delivery Non-Rebreather O2 Flow Rate 15.00 09/11/20 09/11/20 09/11/20 09/11/20 08:25 08:40 09:00 09:00 Pulse 65 87 81 Resp 22 19 B/P (MAP) 149/72 149/86 Pulse Ox 93 94 O2 Delivery Non-Rebreather O2 Flow Rate 15.00 FiO2 100 09/11/20 09/11/20 09/11/20 09/11/20 09:00 10:00 11:00 12:00 Pulse 67 74 68 Resp 25 30 35 B/P (MAP) 149/72 (97) 128/69 (88) 134/65 (88) Pulse Ox 93 88 91 O2 Delivery Non-Rebreather O2 Flow Rate 15.00 Intake and Output 09/11/20 07:00 Intake Total 335 ml Output Total 670 ml Balance -335 ml Laboratory Tests Test 09/09/20 16:50 09/09/20 19:54 09/10/20 04:26 09/10/20 04:54 Bedside Glucose 192 219 93 White Blood Count 11.8 10^3/uL Red Blood Count 4.77 10^6/uL Hemoglobin 13.8 g/dL Hematocrit 39.8 % Mean Corpuscular Volume 83.4 fL Mean Corpuscular Hemoglobin 28.9 pg Mean Corpuscular Hemoglobin Concent 34.7 g/dL Red Cell Distribution Width 12.3 % Platelet Count 361 10^3/uL Mean Platelet Volume 9.2 fL Neutrophils (%) (Auto) 84.0 % Lymphocytes (%) (Auto) 9.0 % Monocytes (%) (Auto) 4.8 % Neutrophils # (Auto) 9.9 10^3/uL Lymphocytes # (Auto) 1.06 10^3/uL1 Monocytes # (Auto) 0.6 10^3/uL Absolute Immature Granulocyte (auto 0.23 10^3 u/L Absolute Eosinophils (auto) 0.0 10^3/uL Immature Granulocytes % 2.00 % Eosinophils % 0.1 % Basophils % 0.1 % Basophils # 0.0 10^3/uL D-Dimer 8.09 mg/L Sodium Level 140 mmol/L Potassium Level 3.7 mmol/L Chloride Level 106.0 mmol/L Carbon Dioxide Level 27.2 mmol/L Anion Gap 10.5 Blood Urea Nitrogen 19 mg/dL Creatinine 0.96 mg/dL Estimated GFR () 95.4 Est GFR (CKD-EPI)(Non-Afr Mauritanian) 78.9 BUN/Creatinine Ratio 19.0 Glucose Level 100 mg/dL Calcium Level 7.9 mg/dL Phosphorus Level 2.4 mg/dL Magnesium Level 1.8 mg/dL Ferritin 1073 ng/mL Total Bilirubin 0.7 mg/dL Aspartate Amino Transf (AST/SGOT) 27 U/L Alanine Aminotransferase (ALT/SGPT) 29 U/L Alkaline Phosphatase 58 U/L Lactate Dehydrogenase 295 U/L Total Creatine Kinase 41 U/L C-Reactive Protein 3.25 mg/dL Total Protein 5.7 g/dL Albumin 2.0 g/dL Globulin 3.7 Albumin/Globulin Ratio 0.540 Procalcitonin 0.10 ng/mL Test 09/10/20 07:10 09/10/20 11:33 09/10/20 16:46 09/10/20 19:51 Bedside Glucose 134 173 178 169 Test 09/11/20 01:56 09/11/20 02:03 09/11/20 05:13 09/11/20 05:14 Bedside Glucose 159 145 Blood Gas Sample Site LB Blood Gas pH 7.398 Blood Gas PCO2 31.4 mmHg Blood Gas PO2 54.5 mmHg Blood Gas HCO3 18.9 mmol/L Blood Gas Base Excess -4.8 mmol/L Abdi Test POSITIVE Arterial Blood Oxygen Saturation 87.1 % Deoxyhemoglobin 12.9 % Carboxyhemoglobin 0.3 % Methemoglobin 0.0 % Total Hemoglobin 13.4 % Total Oxygen Concentration 16.3 % Blood Gas Temperature 37 Oxygen Delivery Method (LAB) NON-REBREATHER MASK FiO2 100 % Total Carbon Dioxide 19.9 mmol/L White Blood Count 11.5 10^3/uL Red Blood Count 4.66 10^6/uL Hemoglobin 13.4 g/dL Hematocrit 39.1 % Mean Corpuscular Volume 83.9 fL Mean Corpuscular Hemoglobin 28.8 pg Mean Corpuscular Hemoglobin Concent 34.3 g/dL Red Cell Distribution Width 12.2 % Platelet Count 296 10^3/uL Mean Platelet Volume 9.2 fL Neutrophils (%) (Auto) 87.0 % Lymphocytes (%) (Auto) 5.9 % Monocytes (%) (Auto) 5.0 % Neutrophils # (Auto) 10.0 10^3/uL Lymphocytes # (Auto) 0.68 10^3/uL1 Monocytes # (Auto) 0.6 10^3/uL Absolute Immature Granulocyte (auto 0.23 10^3 u/L Absolute Eosinophils (auto) 0.0 10^3/uL Immature Granulocytes % 2.00 % Eosinophils % 0.0 % Basophils % 0.1 % Basophils # 0.0 10^3/uL Sodium Level 139 mmol/L Potassium Level 3.9 mmol/L Chloride Level 106.0 mmol/L Carbon Dioxide Level 23.2 mmol/L Anion Gap 13.7 Blood Urea Nitrogen 22 mg/dL Creatinine 0.88 mg/dL Estimated GFR () 105.5 Est GFR (CKD-EPI)(Non-Afr Mauritanian) 87.2 BUN/Creatinine Ratio 25.0 Glucose Level 151 mg/dL Calcium Level 8.3 mg/dL Phosphorus Level 3.1 mg/dL Magnesium Level 2.3 mg/dL Total Bilirubin 0.7 mg/dL Aspartate Amino Transf (AST/SGOT) 27 U/L Alanine Aminotransferase (ALT/SGPT) 23 U/L Alkaline Phosphatase 71 U/L Total Protein 5.7 g/dL Albumin 2.0 g/dL Globulin 3.7 Albumin/Globulin Ratio 0.540 Test 09/11/20 05:41 09/11/20 07:35 09/11/20 07:50 09/11/20 11:42 Blood Gas Sample Site RT RADIAL ARTERY RR Blood Gas pH 7.405 7.398 Blood Gas PCO2 35.2 mmHg 36.1 mmHg Blood Gas PO2 53.5 mmHg 52.5 mmHg Blood Gas HCO3 21.6 mmol/L 21.8 mmol/L Blood Gas Base Excess -2.5 mmol/L -2.5 mmol/L Abdi Test POSITIVE POSITIVE Arterial Blood Oxygen Saturation 87.9 % 86.0 % Deoxyhemoglobin 12.1 % 13.9 % Carboxyhemoglobin 0 % 0.6 % Methemoglobin 0.1 % 0.3 % Total Hemoglobin 14.0 % 13.9 % Total Oxygen Concentration 17.3 % 16.6 % Blood Gas Temperature 37 37 Oxygen Delivery Method (LAB) NON-REBREATHER MASK NON-REBREATHER MASK FiO2 100 % 100 % Total Carbon Dioxide 22.6 mmol/L 22.9 mmol/L Bedside Glucose 133 185 Current Medications Medications (Trade) Dose Ordered Sig/Adrianna PRN Reason Start Time Stop Time Status Last Admin Enoxaparin Sodium (Lovenox) 80 mg BID 09/09/20 19:00 10/04/20 20:29 09/11/20 09:00 Lorazepam (Ativan) 1 mg Q4HR PRN ANXIETY 09/11/20 00:30 10/11/20 00:29 09/11/20 09:00 Metoprolol Tartrate (Lopresser) 25 mg BID 09/09/20 21:00 10/09/20 20:59 09/11/20 09:00 Remdesivir 100 mg/ Sodium Chloride 120 ml @ 111.111 mls/hr Q24HRS 09/08/20 19:00 10/08/20 18:59 09/10/20 18:00 LEVEL 1 SEPSIS INFECTION CRITE: Cough/Shortness of Breath, Flu-Pneumonia LEVEL 2-SIRS (LIST ALL THAT AP: RR>20/min, WBC>[id number] Cardiovascular Evidence: Not Assessed or None Hematologic Evidence: None/Not assessed Hepatic Evidence: None/Not assessed Metabolic Evidence: None/Not assessed Neurological Evidence: Altered Mental Status Respiratory Evidence: Acute Resp failure, Need for O2 to keep>90%, O2 SAT<90room air Renal Evidence: None/Not assessed Bedside Monitoring Began on (d: Sep 30, 2020 (9 am till 11:55 am ) Bedside Monitoring Began at:(t: 09:00 O2 Sat by Pulse Oximetry: 97 Oxygen Flow Rate: 70.00 Findings This is a critical care note documentation for the bedside evaluation and management and therapeutic intervention for this critically ill patient.Patient with COVID-19 bilateral pneumonia with acute respiratory failure. Patient is getting worse with time. Has become unstable with hypotensive shock requiring Levophed. Patient's family including the daughter updated in detail over the phone initially later on family meeting held with multiple children including the daughter Nelson.After showing all the reports and x-ray films since admission to the family I had given them the final report that the patient has been deteriorating progressively and is almost at the point that he may have to have a tracheostomy if he wanted to continue with the ventilator. Considering the fact that he has been in the hospital for about 27 days and has been getting worse without any improvement as well as now requiring pressor support with Levophed. Carries a very poor prognosis. After multiple discussions with all the family members and [place] of [place] the family decided for making the patient DNR and comfort measures. Pressors will be stopped. Comfort measures initiated and implemented. CODE STATUS changed to DNR. Critical care time spent with the patient and the family is 43 minutes majority of the time was [id number] and at bedside. JOSE G CARVAJAL MD Sep 30, 2020 12:11
--- NOTE | 2020-09-30 12:17 | DIET.OP ---
Nutrition Asmt/Malnutrit 2-17 Actual Date of Review: Sep 30, 2020 Diagnosis: Covid 19, Acute Hypoxemic Respiratory Failure Pertinent Medical Hx/Surgical: HTN, HLD, T2DM Subjective Information: telehealth f/u- pt remains intubated and sedated. Family has made decision to transition to comfort care as of today. Current Diet Order/Nutrition S: NPO Patient /S.O: Not Indicated Height (Feet): 5 Height (Inches): 6 Current Weight: 170 %IBW: 132 Weight Status: Overweight Food Allergies: No Cultural/Ethnic/Mormon [place]: none identified BEE in Kcals: Use Current Weight Calories/Kcals/Kg: [address] 2002 (09/20) Kcals Calculated: 1817 kcal Protein: Use Current Weight Protein g/k.8-1 g/kg Protein Calculated: 60-75g Fluid: ml: 7683-5977 ml or 1 ml/kcal Malnutrtion/Nutrition Risk Edu: No MD Notificiation Needed?: No Jessica Morris Sep 30, 2020 12:17
--- NOTE | 2020-09-30 12:19 | PRM.PN ---
PROGRESS NOTE SUBJECTIVE Patient overall good deteriorating with COVID-19 respiratory failure and on the ventilator. Patient would be going over to comfort measures.Extubation process and comfort measures discussed with the family as well as ICU staff. Please see separate note labeled as course OBJECTIVE Continue to be on the ventilator getting worse and on Levophed now VITALS Vital Signs Date Time Temp Pulse Resp B/P (MAP) Pulse Ox O2 Delivery O2 Flow Rate FiO2 09/30/20 12:00 28 Mechanical Ventilator 50 09/30/20 12:00 98.2 75 111/55 (73) 97 106/50 (68) LABS/XRAYS Laboratory Tests Test 09/10/20 04:26 09/10/20 04:54 09/10/20 07:10 09/10/20 11:33 White Blood Count 11.8 10^3/uL (4.5-11.0) Red Blood Count 4.77 10^6/uL (4.50-5.90) Hemoglobin 13.8 g/dL (13.9-16.3) Hematocrit 39.8 % (37.0-53.0) Mean Corpuscular Volume 83.4 fL (78-100) Mean Corpuscular Hemoglobin 28.9 pg (26-34) Mean Corpuscular Hemoglobin Concent 34.7 g/dL (33-36.5) Red Cell Distribution Width 12.3 % (11.5-14.5) Platelet Count 361 10^3/uL (150-400) Mean Platelet Volume 9.2 fL (7.8-11.0) Neutrophils (%) (Auto) 84.0 % (41.0-85.0) Lymphocytes (%) (Auto) 9.0 % (24.0-44.0) Monocytes (%) (Auto) 4.8 % (5.0-12.0) Neutrophils # (Auto) 9.9 10^3/uL (1.8-7.7) Lymphocytes # (Auto) 1.06 10^3/uL1 (1.0-4.8) Monocytes # (Auto) 0.6 10^3/uL (0.3-0.8) Absolute Immature Granulocyte (auto 0.23 10^3 u/L (0-2) Absolute Eosinophils (auto) 0.0 10^3/uL (0.0-0.2) Immature Granulocytes % 2.00 % (0.00-0.50) Eosinophils % 0.1 % (0.0-5.0) Basophils % 0.1 % (0.0-0.2) Basophils # 0.0 10^3/uL (0.0-0.1) D-Dimer 8.09 mg/L (0.19-0.49) Sodium Level 140 mmol/L (132-145) Potassium Level 3.7 mmol/L (3.6-5.2) Chloride Level 106.0 mmol/L (96-109) Carbon Dioxide Level 27.2 mmol/L (20.0-32) Anion Gap 10.5 Blood Urea Nitrogen 19 mg/dL (7-18) Creatinine 0.96 mg/dL (0.59-1.40) Estimated GFR () 95.4 (>/=60) Est GFR (CKD-EPI)(Non-Afr [place]) 78.9 (>/=60) BUN/Creatinine Ratio 19.0 Glucose Level 100 mg/dL (70-110) Calcium Level 7.9 mg/dL (8.4-10.5) Phosphorus Level 2.4 mg/dL (2.5-4.9) Magnesium Level 1.8 mg/dL (1.8-2.4) Ferritin 1073 ng/mL (26-388) Total Bilirubin 0.7 mg/dL (0.2-1.0) Aspartate Amino Transf (AST/SGOT) 27 U/L (0-35) Alanine Aminotransferase (ALT/SGPT) 29 U/L (12-78) Alkaline Phosphatase 58 U/L (50-136) Lactate Dehydrogenase 295 U/L (85-227) Total Creatine Kinase 41 U/L (39-308) C-Reactive Protein 3.25 mg/dL (0.00-5.00) Total Protein 5.7 g/dL (6.4-8.2) Albumin 2.0 g/dL (3.4-5.0) Globulin 3.7 Albumin/Globulin Ratio 0.540 Procalcitonin 0.10 ng/mL (0.05-0.5) Bedside Glucose 93 (70 - 110) 134 (70 - 110) 173 (70 - 110) Test 09/10/20 16:46 09/10/20 19:51 09/11/20 01:56 09/11/20 02:03 Bedside Glucose 178 (70 - 110) 169 (70 - 110) 159 (70 - 110) Blood Gas Sample Site LB Blood Gas pH 7.398 (7.350-7.450) Blood Gas PCO2 31.4 mmHg (35.0-45.0) Blood Gas PO2 54.5 mmHg (80.0-100.0) Blood Gas HCO3 18.9 mmol/L (22.0-26.0) Blood Gas Base Excess -4.8 mmol/L (-2.0-2.0) Abdi Test POSITIVE Arterial Blood Oxygen Saturation 87.1 % (94.0-97.00) Deoxyhemoglobin 12.9 % (0.0-5.0) Carboxyhemoglobin 0.3 % (0.0-3.9) Methemoglobin 0.0 % (0.00-5.0) Total Hemoglobin 13.4 % (12.0-17.8) Total Oxygen Concentration 16.3 % (13.5-17.5) Blood Gas Temperature 37 Oxygen Delivery Method (LAB) NON-REBREATHER MASK FiO2 100 % (20-101) Total Carbon Dioxide 19.9 mmol/L (23-27) Test 09/11/20 05:13 09/11/20 05:14 09/11/20 05:41 09/11/20 07:35 Bedside Glucose 145 (70 - 110) White Blood Count 11.5 10^3/uL (4.5-11.0) Red Blood Count 4.66 10^6/uL (4.50-5.90) Hemoglobin 13.4 g/dL (13.9-16.3) Hematocrit 39.1 % (37.0-53.0) Mean Corpuscular Volume 83.9 fL (78-100) Mean Corpuscular Hemoglobin 28.8 pg (26-34) Mean Corpuscular Hemoglobin Concent 34.3 g/dL (33-36.5) Red Cell Distribution Width 12.2 % (11.5-14.5) Platelet Count 296 10^3/uL (150-400) Mean Platelet Volume 9.2 fL (7.8-11.0) Neutrophils (%) (Auto) 87.0 % (41.0-85.0) Lymphocytes (%) (Auto) 5.9 % (24.0-44.0) Monocytes (%) (Auto) 5.0 % (5.0-12.0) Neutrophils # (Auto) 10.0 10^3/uL (1.8-7.7) Lymphocytes # (Auto) 0.68 10^3/uL1 (1.0-4.8) Monocytes # (Auto) 0.6 10^3/uL (0.3-0.8) Absolute Immature Granulocyte (auto 0.23 10^3 u/L (0-2) Absolute Eosinophils (auto) 0.0 10^3/uL (0.0-0.2) Immature Granulocytes % 2.00 % (0.00-0.50) Eosinophils % 0.0 % (0.0-5.0) Basophils % 0.1 % (0.0-0.2) Basophils # 0.0 10^3/uL (0.0-0.1) Sodium Level 139 mmol/L (132-145) Potassium Level 3.9 mmol/L (3.6-5.2) Chloride Level 106.0 mmol/L (96-109) Carbon Dioxide Level 23.2 mmol/L (20.0-32) Anion Gap 13.7 Blood Urea Nitrogen 22 mg/dL (7-18) Creatinine 0.88 mg/dL (0.59-1.40) Estimated GFR () 105.5 (>/=60) Est GFR (CKD-EPI)(Non-Afr [place]) 87.2 (>/=60) BUN/Creatinine Ratio 25.0 Glucose Level 151 mg/dL (70-110) Calcium Level 8.3 mg/dL (8.4-10.5) Phosphorus Level 3.1 mg/dL (2.5-4.9) Magnesium Level 2.3 mg/dL (1.8-2.4) Total Bilirubin 0.7 mg/dL (0.2-1.0) Aspartate Amino Transf (AST/SGOT) 27 U/L (0-35) Alanine Aminotransferase (ALT/SGPT) 23 U/L (12-78) Alkaline Phosphatase 71 U/L (50-136) Total Protein 5.7 g/dL (6.4-8.2) Albumin 2.0 g/dL (3.4-5.0) Globulin 3.7 Albumin/Globulin Ratio 0.540 Blood Gas Sample Site RT RADIAL ARTERY RR Blood Gas pH 7.405 (7.350-7.450) 7.398 (7.350-7.450) Blood Gas PCO2 35.2 mmHg (35.0-45.0) 36.1 mmHg (35.0-45.0) Blood Gas PO2 53.5 mmHg (80.0-100.0) 52.5 mmHg (80.0-100.0) Blood Gas HCO3 21.6 mmol/L (22.0-26.0) 21.8 mmol/L (22.0-26.0) Blood Gas Base Excess -2.5 mmol/L (-2.0-2.0) -2.5 mmol/L (-2.0-2.0) Abdi Test POSITIVE POSITIVE Arterial Blood Oxygen Saturation 87.9 % (94.0-97.00) 86.0 % (94.0-97.00) Deoxyhemoglobin 12.1 % (0.0-5.0) 13.9 % (0.0-5.0) Carboxyhemoglobin 0 % (0.0-3.9) 0.6 % (0.0-3.9) Methemoglobin 0.1 % (0.00-5.0) 0.3 % (0.00-5.0) Total Hemoglobin 14.0 % (12.0-17.8) 13.9 % (12.0-17.8) Total Oxygen Concentration 17.3 % (13.5-17.5) 16.6 % (13.5-17.5) Blood Gas Temperature 37 37 Oxygen Delivery Method (LAB) NON-REBREATHER MASK NON-REBREATHER MASK FiO2 100 % (20-101) 100 % (20-101) Total Carbon Dioxide 22.6 mmol/L (23-27) 22.9 mmol/L (23-27) Test 09/11/20 07:50 09/11/20 11:42 09/11/20 16:15 09/11/20 20:50 Bedside Glucose 133 (70 - 110) 185 (70 - 110) 175 (70 - 110) 201 (70 - 110) Test 09/12/20 04:11 09/12/20 05:21 09/12/20 07:14 09/12/20 11:45 White Blood Count 16.3 10^3/uL (4.5-11.0) Red Blood Count 4.45 10^6/uL (4.50-5.90) Hemoglobin 13.2 g/dL (13.9-16.3) Hematocrit 37.1 % (37.0-53.0) Mean Corpuscular Volume 83.4 fL (78-100) Mean Corpuscular Hemoglobin 29.7 pg (26-34) Mean Corpuscular Hemoglobin Concent 35.6 g/dL (33-36.5) Red Cell Distribution Width 12.3 % (11.5-14.5) Platelet Count 316 10^3/uL (150-400) Mean Platelet Volume 9.2 fL (7.8-11.0) Neutrophils (%) (Auto) 89.5 % (41.0-85.0) Lymphocytes (%) (Auto) 3.9 % (24.0-44.0) Monocytes (%) (Auto) 5.0 % (5.0-12.0) Neutrophils # (Auto) 14.6 10^3/uL (1.8-7.7) Lymphocytes # (Auto) 0.64 10^3/uL1 (1.0-4.8) Monocytes # (Auto) 0.8 10^3/uL (0.3-0.8) Absolute Immature Granulocyte (auto 0.24 10^3 u/L (0-2) Absolute Eosinophils (auto) 0.0 10^3/uL (0.0-0.2) Immature Granulocytes % 1.50 % (0.00-0.50) Eosinophils % 0.0 % (0.0-5.0) Basophils % 0.1 % (0.0-0.2) Basophils # 0.0 10^3/uL (0.0-0.1) Sodium Level 139 mmol/L (132-145) Potassium Level 4.1 mmol/L (3.6-5.2) Chloride Level 105.0 mmol/L (96-109) Carbon Dioxide Level 26.4 mmol/L (20.0-32) Anion Gap 11.7 Blood Urea Nitrogen 24 mg/dL (7-18) Creatinine 0.82 mg/dL (0.59-1.40) Estimated GFR () 114.5 (>/=60) Est GFR (CKD-EPI)(Non-Afr [place]) 94.6 (>/=60) BUN/Creatinine Ratio 29.0 Glucose Level 144 mg/dL (70-110) Calcium Level 8.3 mg/dL (8.4-10.5) Total Bilirubin 0.6 mg/dL (0.2-1.0) Aspartate Amino Transf (AST/SGOT) 24 U/L (0-35) Alanine Aminotransferase (ALT/SGPT) 19 U/L (12-78) Alkaline Phosphatase 69 U/L (50-136) Total Protein 5.6 g/dL (6.4-8.2) Albumin 2.0 g/dL (3.4-5.0) Globulin 3.6 Albumin/Globulin Ratio 0.555 Bedside Glucose 132 (70 - 110) 173 (70 - 110) Blood Gas Sample Site RR Blood Gas pH 7.429 (7.350-7.450) Blood Gas PCO2 33.6 mmHg (35.0-45.0) Blood Gas PO2 47.2 mmHg (80.0-100.0) Blood Gas HCO3 21.8 mmol/L (22.0-26.0) Blood Gas Base Excess -1.7 mmol/L (-2.0-2.0) Abdi Test POSITIVE Arterial Blood Oxygen Saturation 82.7 % (94.0-97.00) Deoxyhemoglobin 17.1 % (0.0-5.0) Carboxyhemoglobin 0.9 % (0.0-3.9) Methemoglobin 0.3 % (0.00-5.0) Total Hemoglobin 15.0 % (12.0-17.8) Total Oxygen Concentration 17.2 % (13.5-17.5) Blood Gas Temperature 37 Oxygen Delivery Method (LAB) NON-REBREATHER MASK FiO2 100 % (20-101) Total Carbon Dioxide 22.8 mmol/L (23-27) Test 09/12/20 15:44 09/12/20 21:13 09/13/20 04:13 09/13/20 07:45 Bedside Glucose 262 (70 - 110) 202 (70 - 110) White Blood Count 13.7 10^3/uL (4.5-11.0) Red Blood Count 4.63 10^6/uL (4.50-5.90) Hemoglobin 13.4 g/dL (13.9-16.3) Hematocrit 38.7 % (37.0-53.0) Mean Corpuscular Volume 83.6 fL (78-100) Mean Corpuscular Hemoglobin 28.9 pg (26-34) Mean Corpuscular Hemoglobin Concent 34.6 g/dL (33-36.5) Red Cell Distribution Width 12.4 % (11.5-14.5) Platelet Count 132 10^3/uL (150-400) Mean Platelet Volume 10.4 fL (7.8-11.0) Neutrophils (%) (Auto) 89.9 % (41.0-85.0) Lymphocytes (%) (Auto) 4.0 % (24.0-44.0) Monocytes (%) (Auto) 4.7 % (5.0-12.0) Neutrophils # (Auto) 12.3 10^3/uL (1.8-7.7) Lymphocytes # (Auto) 0.55 10^3/uL1 (1.0-4.8) Monocytes # (Auto) 0.6 10^3/uL (0.3-0.8) Absolute Immature Granulocyte (auto 0.18 10^3 u/L (0-2) Absolute Eosinophils (auto) 0.0 10^3/uL (0.0-0.2) Immature Granulocytes % 1.30 % (0.00-0.50) Eosinophils % 0.0 % (0.0-5.0) Basophils % 0.1 % (0.0-0.2) Basophils # 0.0 10^3/uL (0.0-0.1) D-Dimer 6.10 mg/L (0.19-0.49) Sodium Level 134 mmol/L (132-145) Potassium Level 3.9 mmol/L (3.6-5.2) Chloride Level 101.0 mmol/L (96-109) Carbon Dioxide Level 24.6 mmol/L (20.0-32) Anion Gap 12.3 Blood Urea Nitrogen 21 mg/dL (7-18) Creatinine 0.83 mg/dL (0.59-1.40) Estimated GFR () 112.9 (>/=60) Est GFR (CKD-EPI)(Non-Afr [place]) 93.3 (>/=60) BUN/Creatinine Ratio 25.0 Glucose Level 163 mg/dL (70-110) Calcium Level 8.1 mg/dL (8.4-10.5) Total Bilirubin 0.6 mg/dL (0.2-1.0) Aspartate Amino Transf (AST/SGOT) 25 U/L (0-35) Alanine Aminotransferase (ALT/SGPT) 18 U/L (12-78) Alkaline Phosphatase 65 U/L (50-136) Ammonia 32 umol/L (11-35) Pro-B-Type Natriuretic Peptide 1380 pg/mL (0-125) Total Protein 5.6 g/dL (6.4-8.2) Albumin 1.9 g/dL (3.4-5.0) Globulin 3.7 Albumin/Globulin Ratio 0.513 Blood Gas Sample Site RR Blood Gas pH 7.410 (7.350-7.450) Blood Gas PCO2 47.1 mmHg (35.0-45.0) Blood Gas PO2 55.4 mmHg (80.0-100.0) Blood Gas HCO3 25.9 mmol/L (22.0-26.0) Blood Gas Base Excess 1.1 mmol/L (-2.0-2.0) Abdi Test POSITIVE Arterial Blood Oxygen Saturation 87.4 % (94.0-97.00) Deoxyhemoglobin 12.5 % (0.0-5.0) Carboxyhemoglobin 0.8 % (0.0-3.9) Methemoglobin 0.2 % (0.00-5.0) Total Hemoglobin 13.9 % (12.0-17.8) Total Oxygen Concentration 16.9 % (13.5-17.5) Oxygen Delivery Method (LAB) BIPAP Blood Gas Vent Mode AVAPS Blood Gas Vent Rate 14 FiO2 100 % (20-101) Blood Gas Tidal Volume 400 ML Blood Gas PEEP 8 CMH2O Total Carbon Dioxide 27.2 mmol/L (23-27) Test 09/13/20 12:57 09/13/20 13:06 09/13/20 14:10 09/13/20 16:18 Bedside Glucose 195 (70 - 110) Blood Gas Sample Site RR Blood Gas pH 7.388 (7.350-7.450) Blood Gas PCO2 52.0 mmHg (35.0-45.0) Blood Gas PO2 52.0 mmHg (80.0-100.0) Blood Gas HCO3 22.7 mmol/L (22.0-26.0) Blood Gas Base Excess -1.9 mmol/L (-2.0-2.0) Abdi Test POSITIVE Arterial Blood Oxygen Saturation 83.6 % (94.0-97.00) Carboxyhemoglobin 0 % (0.0-3.9) Methemoglobin 0.2 % (0.00-5.0) Total Hemoglobin 14.7 % (12.0-17.8) Blood Gas Temperature 37 Oxygen Delivery Method (LAB) VENT Blood Gas Vent Mode ACVC Blood Gas Vent Rate 25 FiO2 100 % (20-101) Blood Gas Tidal Volume 400 ML Blood Gas PEEP 6 CMH2O Total Carbon Dioxide 23.9 mmol/L (23-27) Urine Collection Type UNKNOWN Urine Color YELLOW (YELLOW) Urine Appearance CLEAR (CLEAR) Urine Bilirubin NEGATIVE MG/DL (NEGATIVE) Urine Ketones NEGATIVE (NEGATIVE) Urine Specific [place] 1.010 (1.005-1.035) Urine pH 6.5 (5.0-6.0) Urine Protein NEGATIVE (NEGATIVE) Urine Urobilinogen NORMAL (NEGATIVE) Urine Nitrate NEGATIVE (NEGATAIVE) Urine Leukocyte Esterase NEGATIVE (NEGATIVE) Urine Blood NEGATIVE (NEGATIVE) Urine Glucose 100 (NEGATIVE) Procalcitonin 0.26 ng/mL (0.05-0.5) Test 09/13/20 17:19 09/13/20 23:38 09/14/20 03:53 09/14/20 05:21 Bedside Glucose 243 (70 - 110) 137 (70 - 110) 184 (70 - 110) White Blood Count 15.2 10^3/uL (4.5-11.0) Red Blood Count 4.89 10^6/uL (4.50-5.90) Hemoglobin 14.3 g/dL (13.9-16.3) Hematocrit 41.5 % (37.0-53.0) Mean Corpuscular Volume 84.9 fL (78-100) Mean Corpuscular Hemoglobin 29.2 pg (26-34) Mean Corpuscular Hemoglobin Concent 34.5 g/dL (33-36.5) Red Cell Distribution Width 12.9 % (11.5-14.5) Platelet Count 260 10^3/uL (150-400) Mean Platelet Volume 10.3 fL (7.8-11.0) Neutrophils (%) (Auto) 92.6 % (41.0-85.0) Lymphocytes (%) (Auto) 3.0 % (24.0-44.0) Monocytes (%) (Auto) 2.5 % (5.0-12.0) Neutrophils # (Auto) 14.1 10^3/uL (1.8-7.7) Lymphocytes # (Auto) 0.45 10^3/uL1 (1.0-4.8) Monocytes # (Auto) 0.4 10^3/uL (0.3-0.8) Absolute Immature Granulocyte (auto 0.27 10^3 u/L (0-2) Absolute Eosinophils (auto) 0.0 10^3/uL (0.0-0.2) Immature Granulocytes % 1.80 % (0.00-0.50) Eosinophils % 0.0 % (0.0-5.0) Basophils % 0.1 % (0.0-0.2) Basophils # 0.0 10^3/uL (0.0-0.1) Sodium Level 141 mmol/L (132-145) Potassium Level 4.6 mmol/L (3.6-5.2) Chloride Level 105.0 mmol/L (96-109) Carbon Dioxide Level 24.2 mmol/L (20.0-32) Anion Gap 16.4 Blood Urea Nitrogen 34 mg/dL (7-18) Creatinine 1.14 mg/dL (0.59-1.40) Estimated GFR () 78.3 (>/=60) Est GFR (CKD-EPI)(Non-Afr [place]) 64.7 (>/=60) BUN/Creatinine Ratio 29.0 Glucose Level 179 mg/dL (70-110) Calcium Level 8.2 mg/dL (8.4-10.5) Total Bilirubin 0.6 mg/dL (0.2-1.0) Aspartate Amino Transf (AST/SGOT) 19 U/L (0-35) Alanine Aminotransferase (ALT/SGPT) 16 U/L (12-78) Alkaline Phosphatase 61 U/L (50-136) Total Protein 5.8 g/dL (6.4-8.2) Albumin 2.0 g/dL (3.4-5.0) Globulin 3.8 Albumin/Globulin Ratio 0.526 Test 09/14/20 08:30 09/14/20 12:01 09/14/20 15:20 09/14/20 17:42 Blood Gas Sample Site RT RADIAL ARTERY Blood Gas pH 7.377 (7.350-7.450) Blood Gas PCO2 39.9 mmHg (35.0-45.0) Blood Gas PO2 55.2 mmHg (80.0-100.0) Blood Gas HCO3 22.9 mmol/L (22.0-26.0) Blood Gas Base Excess -2.0 mmol/L (-2.0-2.0) Abdi Test POSITIVE Arterial Blood Oxygen Saturation 85.5 % (94.0-97.00) Deoxyhemoglobin 14.4 % (0.0-5.0) Carboxyhemoglobin 0.7 % (0.0-3.9) Methemoglobin 0.2 % (0.00-5.0) Total Hemoglobin 15.1 % (12.0-17.8) Total Oxygen Concentration 18.0 % (13.5-17.5) Blood Gas Temperature 37 Oxygen Delivery Method (LAB) VENT Blood Gas Vent Mode ACVC Blood Gas Vent Rate 25 FiO2 100 % (20-101) Blood Gas Tidal Volume 400 ML Blood Gas PEEP 10 CMH2O Total Carbon Dioxide 24.1 mmol/L (23-27) Bedside Glucose 201 (70 - 110) 232 (70 - 110) Lactic Acid Level 1.3 mmol/L (0.5-1.9) Test 09/15/20 00:20 09/15/20 04:09 09/15/20 05:49 09/15/20 05:50 Bedside Glucose 283 (70 - 110) 276 (70 - 110) White Blood Count 16.8 10^3/uL (4.5-11.0) Red Blood Count 4.60 10^6/uL (4.50-5.90) Hemoglobin 13.4 g/dL (13.9-16.3) Hematocrit 39.6 % (37.0-53.0) Mean Corpuscular Volume 86.1 fL (78-100) Mean Corpuscular Hemoglobin 29.1 pg (26-34) Mean Corpuscular Hemoglobin Concent 33.8 g/dL (33-36.5) Red Cell Distribution Width 13.1 % (11.5-14.5) Platelet Count 355 10^3/uL (150-400) Mean Platelet Volume 9.9 fL (7.8-11.0) Neutrophils (%) (Auto) 92.1 % (41.0-85.0) Lymphocytes (%) (Auto) 2.5 % (24.0-44.0) Monocytes (%) (Auto) 3.7 % (5.0-12.0) Neutrophils # (Auto) 15.5 10^3/uL (1.8-7.7) Lymphocytes # (Auto) 0.42 10^3/uL1 (1.0-4.8) Monocytes # (Auto) 0.6 10^3/uL (0.3-0.8) Absolute Immature Granulocyte (auto 0.28 10^3 u/L (0-2) Absolute Eosinophils (auto) 0.0 10^3/uL (0.0-0.2) Immature Granulocytes % 1.70 % (0.00-0.50) Eosinophils % 0.0 % (0.0-5.0) Basophils % 0.0 % (0.0-0.2) Basophils # 0.0 10^3/uL (0.0-0.1) Sodium Level 139 mmol/L (132-145) Potassium Level 4.1 mmol/L (3.6-5.2) Chloride Level 105.0 mmol/L (96-109) Carbon Dioxide Level 23.9 mmol/L (20.0-32) Anion Gap 14.2 Blood Urea Nitrogen 52 mg/dL (7-18) Creatinine 1.34 mg/dL (0.59-1.40) Estimated GFR () 64.9 (>/=60) Est GFR (CKD-EPI)(Non-Afr [place]) 53.7 (>/=60) BUN/Creatinine Ratio 38.0 Glucose Level 305 mg/dL (70-110) Calcium Level 7.1 mg/dL (8.4-10.5) Total Bilirubin 0.4 mg/dL (0.2-1.0) Aspartate Amino Transf (AST/SGOT) 17 U/L (0-35) Alanine Aminotransferase (ALT/SGPT) 17 U/L (12-78) Alkaline Phosphatase 65 U/L (50-136) C-Reactive Protein 3.29 mg/dL (0.00-5.00) Total Protein 5.6 g/dL (6.4-8.2) Albumin 2.0 g/dL (3.4-5.0) Globulin 3.6 Albumin/Globulin Ratio 0.555 Segmented Neutrophils 98 % (31-76) Lymphocytes 1 % (25-36) Monocytes 1 % (3-9) Platelet Estimate ADEQUATE Platelet Morphology NORMAL Test 09/15/20 08:02 09/15/20 11:39 09/15/20 15:05 09/15/20 17:08 Blood Gas Sample Site ART LINE Blood Gas pH 7.335 (7.350-7.450) Blood Gas PCO2 42.5 mmHg (35.0-45.0) Blood Gas PO2 72.2 mmHg (80.0-100.0) Blood Gas HCO3 22.2 mmol/L (22.0-26.0) Blood Gas Base Excess -3.6 mmol/L (-2.0-2.0) Abdi Test POSITIVE Arterial Blood Oxygen Saturation 93.1 % (94.0-97.00) Deoxyhemoglobin 6.8 % (0.0-5.0) Carboxyhemoglobin 0.6 % (0.0-3.9) Methemoglobin 0.3 % (0.00-5.0) Total Hemoglobin 13.6 % (12.0-17.8) Total Oxygen Concentration 17.7 % (13.5-17.5) Blood Gas Temperature 37 Oxygen Delivery Method (LAB) VENT Blood Gas Vent Mode ACVC Blood Gas Vent Rate 25 FiO2 100 % (20-101) Blood Gas Tidal Volume 400 ML Blood Gas PEEP 12 CMH2O Total Carbon Dioxide 23.5 mmol/L (23-27) Bedside Glucose 294 (70 - 110) 288 (70 - 110) Procalcitonin 0.15 ng/mL (0.05-0.5) Test 09/15/20 20:08 09/15/20 23:59 09/16/20 04:23 09/16/20 05:22 Bedside Glucose 260 (70 - 110) 284 (70 - 110) 278 (70 - 110) White Blood Count 15.2 10^3/uL (4.5-11.0) Red Blood Count 4.03 10^6/uL (4.50-5.90) Hemoglobin 11.7 g/dL (13.9-16.3) Hematocrit 35.3 % (37.0-53.0) Mean Corpuscular Volume 87.6 fL (78-100) Mean Corpuscular Hemoglobin 29.0 pg (26-34) Mean Corpuscular Hemoglobin Concent 33.1 g/dL (33-36.5) Red Cell Distribution Width 13.1 % (11.5-14.5) Platelet Count 234 10^3/uL (150-400) Mean Platelet Volume 10.2 fL (7.8-11.0) Neutrophils (%) (Auto) 94.0 % (41.0-85.0) Lymphocytes (%) (Auto) 1.8 % (24.0-44.0) Monocytes (%) (Auto) 3.0 % (5.0-12.0) Neutrophils # (Auto) 14.3 10^3/uL (1.8-7.7) Lymphocytes # (Auto) 0.28 10^3/uL1 (1.0-4.8) Monocytes # (Auto) 0.5 10^3/uL (0.3-0.8) Absolute Immature Granulocyte (auto 0.16 10^3 u/L (0-2) Absolute Eosinophils (auto) 0.0 10^3/uL (0.0-0.2) Immature Granulocytes % 1.10 % (0.00-0.50) Eosinophils % 0.0 % (0.0-5.0) Basophils % 0.1 % (0.0-0.2) Basophils # 0.0 10^3/uL (0.0-0.1) D-Dimer 1.67 mg/L (0.19-0.49) Sodium Level 140 mmol/L (132-145) Potassium Level 4.9 mmol/L (3.6-5.2) Chloride Level 107.0 mmol/L (96-109) Carbon Dioxide Level 24.8 mmol/L (20.0-32) Anion Gap 13.1 Blood Urea Nitrogen 50 mg/dL (7-18) Creatinine 1.14 mg/dL (0.59-1.40) Estimated GFR () 78.3 (>/=60) Est GFR (CKD-EPI)(Non-Afr [place]) 64.7 (>/=60) BUN/Creatinine Ratio 43.0 Glucose Level 313 mg/dL (70-110) Calcium Level 7.0 mg/dL (8.4-10.5) Total Bilirubin 0.3 mg/dL (0.2-1.0) Aspartate Amino Transf (AST/SGOT) 16 U/L (0-35) Alanine Aminotransferase (ALT/SGPT) 16 U/L (12-78) Alkaline Phosphatase 68 U/L (50-136) Total Protein 4.9 g/dL (6.4-8.2) Albumin 1.8 g/dL (3.4-5.0) Globulin 3.1 Albumin/Globulin Ratio 0.580 Test 09/16/20 05:42 09/16/20 06:16 09/16/20 12:17 09/16/20 13:15 Blood Gas Sample Site ART LINE Blood Gas pH 7.310 (7.350-7.450) Blood Gas PCO2 46.1 mmHg (35.0-45.0) Blood Gas PO2 61.6 mmHg (80.0-100.0) Blood Gas HCO3 22.7 mmol/L (22.0-26.0) Blood Gas Base Excess -3.7 mmol/L (-2.0-2.0) Abdi Test N/A Arterial Blood Oxygen Saturation 89.2 % (94.0-97.00) Deoxyhemoglobin 10.7 % (0.0-5.0) Carboxyhemoglobin 0.3 % (0.0-3.9) Methemoglobin 0.3 % (0.00-5.0) Total Hemoglobin 13.4 % (12.0-17.8) Total Oxygen Concentration 16.7 % (13.5-17.5) Blood Gas Temperature 37 Oxygen Delivery Method (LAB) VENT Blood Gas Vent Mode ACVC Blood Gas Vent Rate 25 FiO2 75 % (20-101) Blood Gas Tidal Volume 400 ML Blood Gas PEEP 10 CMH2O Total Carbon Dioxide 24.1 mmol/L (23-27) Segmented Neutrophils 97 % (31-76) Lymphocytes 1 % (25-36) Monocytes 2 % (3-9) Platelet Estimate ADEQUATE Platelet Morphology NORMAL Bedside Glucose 222 (70 - 110) Procalcitonin 0.05 ng/mL (0.05-0.5) Test 09/16/20 17:13 09/16/20 21:21 09/17/20 00:03 09/17/20 03:50 Bedside Glucose 170 (70 - 110) 186 (70 - 110) 221 (70 - 110) White Blood Count 17.5 10^3/uL (4.5-11.0) Red Blood Count 4.13 10^6/uL (4.50-5.90) Hemoglobin 11.8 g/dL (13.9-16.3) Hematocrit 36.6 % (37.0-53.0) Mean Corpuscular Volume 88.6 fL (78-100) Mean Corpuscular Hemoglobin 28.6 pg (26-34) Mean Corpuscular Hemoglobin Concent 32.2 g/dL (33-36.5) Red Cell Distribution Width 13.0 % (11.5-14.5) Platelet Count 217 10^3/uL (150-400) Mean Platelet Volume 9.7 fL (7.8-11.0) Neutrophils (%) (Auto) 93.7 % (41.0-85.0) Lymphocytes (%) (Auto) 1.3 % (24.0-44.0) Monocytes (%) (Auto) 4.1 % (5.0-12.0) Neutrophils # (Auto) 16.4 10^3/uL (1.8-7.7) Lymphocytes # (Auto) 0.22 10^3/uL1 (1.0-4.8) Monocytes # (Auto) 0.7 10^3/uL (0.3-0.8) Absolute Immature Granulocyte (auto 0.16 10^3 u/L (0-2) Absolute Eosinophils (auto) 0.0 10^3/uL (0.0-0.2) Immature Granulocytes % 0.90 % (0.00-0.50) Eosinophils % 0.0 % (0.0-5.0) Basophils % 0.0 % (0.0-0.2) Basophils # 0.0 10^3/uL (0.0-0.1) Sodium Level 141 mmol/L (132-145) Potassium Level 5.2 mmol/L (3.6-5.2) Chloride Level 109.0 mmol/L (96-109) Carbon Dioxide Level 26.2 mmol/L (20.0-32) Anion Gap 11.0 Blood Urea Nitrogen 56 mg/dL (7-18) Creatinine 1.02 mg/dL (0.59-1.40) Estimated GFR () 89.0 (>/=60) Est GFR (CKD-EPI)(Non-Afr [place]) 73.5 (>/=60) BUN/Creatinine Ratio 54.0 Glucose Level 242 mg/dL (70-110) Calcium Level 7.4 mg/dL (8.4-10.5) Total Bilirubin 0.3 mg/dL (0.2-1.0) Aspartate Amino Transf (AST/SGOT) 19 U/L (0-35) Alanine Aminotransferase (ALT/SGPT) 20 U/L (12-78) Alkaline Phosphatase 68 U/L (50-136) Total Protein 4.6 g/dL (6.4-8.2) Albumin 1.9 g/dL (3.4-5.0) Globulin 2.7 Albumin/Globulin Ratio 0.703 Test 09/17/20 04:10 09/17/20 04:22 09/17/20 05:51 09/17/20 06:25 Bedside Glucose 235 (70 - 110) 244 (70 - 110) Segmented Neutrophils 96 % (31-76) Lymphocytes 1 % (25-36) Monocytes 3 % (3-9) Platelet Estimate ADEQUATE Platelet Morphology NORMAL Blood Gas Sample Site ARTERIAL LINE Blood Gas pH 7.303 (7.350-7.450) Blood Gas PCO2 45.2 mmHg (35.0-45.0) Blood Gas PO2 61.0 mmHg (80.0-100.0) Blood Gas HCO3 21.9 mmol/L (22.0-26.0) Blood Gas Base Excess -4.4 mmol/L (-2.0-2.0) Abdi Test N/A Arterial Blood Oxygen Saturation 89.1 % (94.0-97.00) Deoxyhemoglobin 10.8 % (0.0-5.0) Carboxyhemoglobin 0.3 % (0.0-3.9) Methemoglobin 0.3 % (0.00-5.0) Total Hemoglobin 12.6 % (12.0-17.8) Total Oxygen Concentration 15.7 % (13.5-17.5) Blood Gas Temperature 37 Oxygen Delivery Method (LAB) VENT Blood Gas Vent Mode AC Blood Gas Vent Rate 25 FiO2 90 % (20-101) Blood Gas Tidal Volume 400 ML Blood Gas PEEP 10 CMH2O Total Carbon Dioxide 23.3 mmol/L (23-27) Test 09/17/20 09:10 09/17/20 10:45 09/17/20 16:08 09/17/20 16:41 Ammonia 36 umol/L (11-35) Bedside Glucose 218 (70 - 110) 186 (70 - 110) Sodium Level 138 mmol/L (132-145) Potassium Level 5.0 mmol/L (3.6-5.2) Chloride Level 106.0 mmol/L (96-109) Carbon Dioxide Level 24.6 mmol/L (20.0-32) Glucose Level 209 mg/dL (70-110) Blood Urea Nitrogen 62 mg/dL (7-18) Creatinine 1.29 mg/dL (0.59-1.40) Calcium Level 7.1 mg/dL (8.4-10.5) Anion Gap 12.4 Estimated GFR () 67.8 (>/=60) Est GFR (CKD-EPI)(Non-Afr [place]) 56.1 (>/=60) BUN/Creatinine Ratio 48.0 Test 09/17/20 20:00 09/17/20 23:51 09/18/20 04:14 09/18/20 05:38 Bedside Glucose 175 (70 - 110) 135 (70 - 110) 173 (70 - 110) White Blood Count 20.4 10^3/uL (4.5-11.0) Red Blood Count 4.32 10^6/uL (4.50-5.90) Hemoglobin 12.5 g/dL (13.9-16.3) Hematocrit 38.3 % (37.0-53.0) Mean Corpuscular Volume 88.7 fL (78-100) Mean Corpuscular Hemoglobin 28.9 pg (26-34) Mean Corpuscular Hemoglobin Concent 32.6 g/dL (33-36.5) Red Cell Distribution Width 13.2 % (11.5-14.5) Platelet Count 202 10^3/uL (150-400) Mean Platelet Volume 10.0 fL (7.8-11.0) Neutrophils (%) (Auto) 86.3 % (41.0-85.0) Lymphocytes (%) (Auto) 4.3 % (24.0-44.0) Monocytes (%) (Auto) 5.5 % (5.0-12.0) Neutrophils # (Auto) 17.6 10^3/uL (1.8-7.7) Lymphocytes # (Auto) 0.87 10^3/uL1 (1.0-4.8) Monocytes # (Auto) 1.1 10^3/uL (0.3-0.8) Absolute Immature Granulocyte (auto 0.74 10^3 u/L (0-2) Absolute Eosinophils (auto) 0.1 10^3/uL (0.0-0.2) Immature Granulocytes % 3.60 % (0.00-0.50) Eosinophils % 0.3 % (0.0-5.0) Basophils % 0.0 % (0.0-0.2) Basophils # 0.0 10^3/uL (0.0-0.1) Sodium Level 141 mmol/L (132-145) Potassium Level 4.4 mmol/L (3.6-5.2) Chloride Level 107.0 mmol/L (96-109) Carbon Dioxide Level 25.2 mmol/L (20.0-32) Anion Gap 13.2 Blood Urea Nitrogen 62 mg/dL (7-18) Creatinine 1.21 mg/dL (0.59-1.40) Estimated GFR () 73.1 (>/=60) Est GFR (CKD-EPI)(Non-Afr [place]) 60.4 (>/=60) BUN/Creatinine Ratio 51.0 Glucose Level 129 mg/dL (70-110) Calcium Level 7.0 mg/dL (8.4-10.5) Total Bilirubin 0.3 mg/dL (0.2-1.0) Aspartate Amino Transf (AST/SGOT) 20 U/L (0-35) Alanine Aminotransferase (ALT/SGPT) 24 U/L (12-78) Alkaline Phosphatase 72 U/L (50-136) Total Protein 4.9 g/dL (6.4-8.2) Albumin 1.8 g/dL (3.4-5.0) Globulin 3.1 Albumin/Globulin Ratio 0.580 Test 09/18/20 07:47 09/18/20 11:26 09/18/20 18:01 09/18/20 20:17 Blood Gas Sample Site [facility] Blood Gas pH 7.340 (7.350-7.450) Blood Gas PCO2 47.4 mmHg (35.0-45.0) Blood Gas PO2 76.1 mmHg (80.0-100.0) Blood Gas HCO3 25.0 mmol/L (22.0-26.0) Blood Gas Base Excess -1.1 mmol/L (-2.0-2.0) Abdi Test N/A Arterial Blood Oxygen Saturation 94.9 % (94.0-97.00) Deoxyhemoglobin 5.1 % (0.0-5.0) Carboxyhemoglobin 0.5 % (0.0-3.9) Methemoglobin 0.4 % (0.00-5.0) Total Hemoglobin 12.9 % (12.0-17.8) Total Oxygen Concentration 17.1 % (13.5-17.5) Blood Gas Temperature 37 Oxygen Delivery Method (LAB) VENT Blood Gas Vent Mode ACVC Blood Gas Vent Rate 25 FiO2 80 % (20-101) Blood Gas Tidal Volume 400 ML Blood Gas PEEP 12 CMH2O Total Carbon Dioxide 26.5 mmol/L (23-27) Bedside Glucose 158 (70 - 110) 110 (70 - 110) 76 (70 - 110) Test 09/18/20 23:51 09/19/20 04:30 09/19/20 05:19 09/19/20 05:21 Bedside Glucose 71 (70 - 110) 201 (70 - 110) 68 (70 - 110) White Blood Count 18.2 10^3/uL (4.5-11.0) Red Blood Count 4.22 10^6/uL (4.50-5.90) Hemoglobin 12.5 g/dL (13.9-16.3) Hematocrit 36.8 % (37.0-53.0) Mean Corpuscular Volume 87.2 fL (78-100) Mean Corpuscular Hemoglobin 29.6 pg (26-34) Mean Corpuscular Hemoglobin Concent 34.0 g/dL (33-36.5) Red Cell Distribution Width 13.2 % (11.5-14.5) Platelet Count 137 10^3/uL (150-400) Mean Platelet Volume 10.4 fL (7.8-11.0) Neutrophils (%) (Auto) 88.7 % (41.0-85.0) Lymphocytes (%) (Auto) 4.6 % (24.0-44.0) Monocytes (%) (Auto) 2.9 % (5.0-12.0) Neutrophils # (Auto) 16.1 10^3/uL (1.8-7.7) Lymphocytes # (Auto) 0.83 10^3/uL1 (1.0-4.8) Monocytes # (Auto) 0.5 10^3/uL (0.3-0.8) Absolute Immature Granulocyte (auto 0.38 10^3 u/L (0-2) Absolute Eosinophils (auto) 0.3 10^3/uL (0.0-0.2) Immature Granulocytes % 2.10 % (0.00-0.50) Eosinophils % 1.7 % (0.0-5.0) Basophils % 0.0 % (0.0-0.2) Basophils # 0.0 10^3/uL (0.0-0.1) D-Dimer 1.97 mg/L (0.19-0.49) Sodium Level 140 mmol/L (132-145) Potassium Level 4.1 mmol/L (3.6-5.2) Chloride Level 106.0 mmol/L (96-109) Carbon Dioxide Level 30.9 mmol/L (20.0-32) Anion Gap 7.2 Blood Urea Nitrogen 40 mg/dL (7-18) Creatinine 0.64 mg/dL (0.59-1.40) Estimated GFR () 152.3 (>/=60) Est GFR (CKD-EPI)(Non-Afr [place]) 125.9 (>/=60) BUN/Creatinine Ratio 62.0 Glucose Level 121 mg/dL (70-110) Calcium Level 7.4 mg/dL (8.4-10.5) Phosphorus Level 3.0 mg/dL (2.5-4.9) Magnesium Level 2.5 mg/dL (1.8-2.4) Ferritin 1809 ng/mL (26-388) Total Bilirubin 0.5 mg/dL (0.2-1.0) Aspartate Amino Transf (AST/SGOT) 28 U/L (0-35) Alanine Aminotransferase (ALT/SGPT) 32 U/L (12-78) Alkaline Phosphatase 67 U/L (50-136) Lactate Dehydrogenase 213 U/L (85-227) Total Creatine Kinase 20 U/L (39-308) C-Reactive Protein 18.69 mg/dL (0.00-5.00) Total Protein 5.0 g/dL (6.4-8.2) Albumin 1.5 g/dL (3.4-5.0) Globulin 3.5 Albumin/Globulin Ratio 0.428 Triglycerides Level 91 mg/dL (20-200) Procalcitonin 1.44 ng/mL (0.05-0.5) Test 09/19/20 05:25 09/19/20 07:31 09/19/20 11:30 09/19/20 16:33 Bedside Glucose 63 (70 - 110) 162 (70 - 110) 165 (70 - 110) Blood Gas Sample Site [facility] Blood Gas pH 7.440 (7.350-7.450) Blood Gas PCO2 39.8 mmHg (35.0-45.0) Blood Gas PO2 65.1 mmHg (80.0-100.0) Blood Gas HCO3 26.4 mmol/L (22.0-26.0) Blood Gas Base Excess 2.2 mmol/L (-2.0-2.0) Abdi Test N/A Arterial Blood Oxygen Saturation 93.0 % (94.0-97.00) Deoxyhemoglobin 6.9 % (0.0-5.0) Carboxyhemoglobin 0.9 % (0.0-3.9) Methemoglobin 0.4 % (0.00-5.0) Total Hemoglobin 13.1 % (12.0-17.8) Total Oxygen Concentration 16.9 % (13.5-17.5) Blood Gas Temperature 37 Oxygen Delivery Method (LAB) VENT Blood Gas Vent Mode ACVC Blood Gas Vent Rate 30 FiO2 70 % (20-101) Blood Gas Tidal Volume 400 ML Blood Gas PEEP 10 CMH2O Total Carbon Dioxide 27.6 mmol/L (23-27) Test 09/20/20 00:03 09/20/20 04:13 09/20/20 05:58 09/20/20 07:30 Bedside Glucose 266 (70 - 110) 72 (70 - 110) White Blood Count 16.6 10^3/uL (4.5-11.0) Red Blood Count 4.21 10^6/uL (4.50-5.90) Hemoglobin 12.0 g/dL (13.9-16.3) Hematocrit 37.1 % (37.0-53.0) Mean Corpuscular Volume 88.1 fL (78-100) Mean Corpuscular Hemoglobin 28.5 pg (26-34) Mean Corpuscular Hemoglobin Concent 32.3 g/dL (33-36.5) Red Cell Distribution Width 13.3 % (11.5-14.5) Platelet Count 127 10^3/uL (150-400) Mean Platelet Volume 11.0 fL (7.8-11.0) Neutrophils (%) (Auto) 90.4 % (41.0-85.0) Lymphocytes (%) (Auto) 2.8 % (24.0-44.0) Monocytes (%) (Auto) 3.1 % (5.0-12.0) Neutrophils # (Auto) 15.0 10^3/uL (1.8-7.7) Lymphocytes # (Auto) 0.47 10^3/uL1 (1.0-4.8) Monocytes # (Auto) 0.5 10^3/uL (0.3-0.8) Absolute Immature Granulocyte (auto 0.28 10^3 u/L (0-2) Absolute Eosinophils (auto) 0.3 10^3/uL (0.0-0.2) Immature Granulocytes % 1.70 % (0.00-0.50) Eosinophils % 1.9 % (0.0-5.0) Basophils % 0.1 % (0.0-0.2) Basophils # 0.0 10^3/uL (0.0-0.1) Sodium Level 140 mmol/L (132-145) Potassium Level 4.1 mmol/L (3.6-5.2) Chloride Level 106.0 mmol/L (96-109) Carbon Dioxide Level 29.6 mmol/L (20.0-32) Anion Gap 8.5 Blood Urea Nitrogen 24 mg/dL (7-18) Creatinine 0.58 mg/dL (0.59-1.40) Estimated GFR () 170.7 (>/=60) Est GFR (CKD-EPI)(Non-Afr [place]) 141.1 (>/=60) BUN/Creatinine Ratio 41.0 Glucose Level 110 mg/dL (70-110) Calcium Level 7.3 mg/dL (8.4-10.5) Total Bilirubin 0.7 mg/dL (0.2-1.0) Aspartate Amino Transf (AST/SGOT) 27 U/L (0-35) Alanine Aminotransferase (ALT/SGPT) 28 U/L (12-78) Alkaline Phosphatase 70 U/L (50-136) Total Protein 4.9 g/dL (6.4-8.2) Albumin 1.4 g/dL (3.4-5.0) Globulin 3.5 Albumin/Globulin Ratio 0.400 Blood Gas Sample Site [facility] Blood Gas pH 7.380 (7.350-7.450) Blood Gas PCO2 42.9 mmHg (35.0-45.0) Blood Gas PO2 64.1 mmHg (80.0-100.0) Blood Gas HCO3 24.8 mmol/L (22.0-26.0) Blood Gas Base Excess -0.4 mmol/L (-2.0-2.0) Abdi Test N/A Arterial Blood Oxygen Saturation 92.2 % (94.0-97.00) Deoxyhemoglobin 7.8 % (0.0-5.0) Carboxyhemoglobin 0.1 % (0.0-3.9) Methemoglobin 0.3 % (0.00-5.0) Total Hemoglobin 12.5 % (12.0-17.8) Total Oxygen Concentration 16.2 % (13.5-17.5) Blood Gas Temperature 37.0 Oxygen Delivery Method (LAB) VENT Blood Gas Vent Mode ACVC Blood Gas Vent Rate 28 FiO2 70 % (20-101) Blood Gas Tidal Volume 400 ML Blood Gas PEEP 10 CMH2O Total Carbon Dioxide 26.1 mmol/L (23-27) Test 09/20/20 11:38 09/20/20 16:35 09/20/20 23:51 09/21/20 00:06 Bedside Glucose 182 (70 - 110) 142 (70 - 110) 349 (70 - 110) 121 (70 - 110) Test 09/21/20 04:09 09/21/20 06:03 09/21/20 07:28 09/21/20 11:20 White Blood Count 12.7 10^3/uL (4.5-11.0) Red Blood Count 3.86 10^6/uL (4.50-5.90) Hemoglobin 11.4 g/dL (13.9-16.3) Hematocrit 34.2 % (37.0-53.0) Mean Corpuscular Volume 88.6 fL (78-100) Mean Corpuscular Hemoglobin 29.5 pg (26-34) Mean Corpuscular Hemoglobin Concent 33.3 g/dL (33-36.5) Red Cell Distribution Width 13.3 % (11.5-14.5) Platelet Count 112 10^3/uL (150-400) Mean Platelet Volume 10.7 fL (7.8-11.0) Neutrophils (%) (Auto) 87.8 % (41.0-85.0) Lymphocytes (%) (Auto) 3.2 % (24.0-44.0) Monocytes (%) (Auto) 5.2 % (5.0-12.0) Neutrophils # (Auto) 11.2 10^3/uL (1.8-7.7) Lymphocytes # (Auto) 0.41 10^3/uL1 (1.0-4.8) Monocytes # (Auto) 0.7 10^3/uL (0.3-0.8) Absolute Immature Granulocyte (auto 0.17 10^3 u/L (0-2) Absolute Eosinophils (auto) 0.3 10^3/uL (0.0-0.2) Immature Granulocytes % 1.30 % (0.00-0.50) Eosinophils % 2.4 % (0.0-5.0) Basophils % 0.1 % (0.0-0.2) Basophils # 0.0 10^3/uL (0.0-0.1) Sodium Level 140 mmol/L (132-145) Potassium Level 3.9 mmol/L (3.6-5.2) Chloride Level 105.0 mmol/L (96-109) Carbon Dioxide Level 33.2 mmol/L (20.0-32) Anion Gap 5.7 Blood Urea Nitrogen 18 mg/dL (7-18) Creatinine 0.75 mg/dL (0.59-1.40) Estimated GFR () 126.9 (>/=60) Est GFR (CKD-EPI)(Non-Afr [place]) 104.8 (>/=60) BUN/Creatinine Ratio 24.0 Glucose Level 135 mg/dL (70-110) Calcium Level 7.1 mg/dL (8.4-10.5) Phosphorus Level 3.0 mg/dL (2.5-4.9) Magnesium Level 2.4 mg/dL (1.8-2.4) Total Bilirubin 0.8 mg/dL (0.2-1.0) Aspartate Amino Transf (AST/SGOT) 41 U/L (0-35) Alanine Aminotransferase (ALT/SGPT) 32 U/L (12-78) Alkaline Phosphatase 83 U/L (50-136) Total Protein 5.0 g/dL (6.4-8.2) Albumin 1.2 g/dL (3.4-5.0) Globulin 3.8 Albumin/Globulin Ratio 0.315 Bedside Glucose 103 (70 - 110) 169 (70 - 110) Blood Gas Sample Site [facility] Blood Gas pH 7.407 (7.350-7.450) Blood Gas PCO2 51.4 mmHg (35.0-45.0) Blood Gas PO2 85.8 mmHg (80.0-100.0) Blood Gas HCO3 31.6 mmol/L (22.0-26.0) Blood Gas Base Excess 5.9 mmol/L (-2.0-2.0) Abdi Test N/A Arterial Blood Oxygen Saturation 96.1 % (94.0-97.00) Deoxyhemoglobin 3.9 % (0.0-5.0) Carboxyhemoglobin 1.1 % (0.0-3.9) Methemoglobin 0.1 % (0.00-5.0) Total Hemoglobin 11.7 % (12.0-17.8) Total Oxygen Concentration 15.7 % (13.5-17.5) Blood Gas Temperature 37 Oxygen Delivery Method (LAB) VENT Blood Gas Vent Mode ACVC+ Blood Gas Vent Rate 26 FiO2 70 % (20-101) Blood Gas Tidal Volume 400 ML Blood Gas PEEP 10 CMH2O Total Carbon Dioxide 33.2 mmol/L (23-27) Test 09/21/20 17:17 09/21/20 21:14 09/22/20 00:35 09/22/20 03:56 Bedside Glucose 186 (70 - 110) 137 (70 - 110) 149 (70 - 110) White Blood Count 8.7 10^3/uL (4.5-11.0) Red Blood Count 3.46 10^6/uL (4.50-5.90) Hemoglobin 10.1 g/dL (13.9-16.3) Hematocrit 31.0 % (37.0-53.0) Mean Corpuscular Volume 89.6 fL (78-100) Mean Corpuscular Hemoglobin 29.2 pg (26-34) Mean Corpuscular Hemoglobin Concent 32.6 g/dL (33-36.5) Red Cell Distribution Width 13.4 % (11.5-14.5) Platelet Count 116 10^3/uL (150-400) Mean Platelet Volume 10.7 fL (7.8-11.0) Neutrophils (%) (Auto) 82.9 % (41.0-85.0) Lymphocytes (%) (Auto) 6.6 % (24.0-44.0) Monocytes (%) (Auto) 5.9 % (5.0-12.0) Neutrophils # (Auto) 7.2 10^3/uL (1.8-7.7) Lymphocytes # (Auto) 0.58 10^3/uL1 (1.0-4.8) Monocytes # (Auto) 0.5 10^3/uL (0.3-0.8) Absolute Immature Granulocyte (auto 0.13 10^3 u/L (0-2) Absolute Eosinophils (auto) 0.3 10^3/uL (0.0-0.2) Immature Granulocytes % 1.50 % (0.00-0.50) Eosinophils % 3.0 % (0.0-5.0) Basophils % 0.1 % (0.0-0.2) Basophils # 0.0 10^3/uL (0.0-0.1) Sodium Level 140 mmol/L (132-145) Potassium Level 3.8 mmol/L (3.6-5.2) Chloride Level 103.0 mmol/L (96-109) Carbon Dioxide Level 34.8 mmol/L (20.0-32) Anion Gap 6.0 Blood Urea Nitrogen 20 mg/dL (7-18) Creatinine 0.72 mg/dL (0.59-1.40) Estimated GFR () 133.0 (>/=60) Est GFR (CKD-EPI)(Non-Afr [place]) 109.9 (>/=60) BUN/Creatinine Ratio 27.0 Glucose Level 203 mg/dL (70-110) Calcium Level 7.6 mg/dL (8.4-10.5) Phosphorus Level 2.9 mg/dL (2.5-4.9) Magnesium Level 2.1 mg/dL (1.8-2.4) Total Bilirubin 0.9 mg/dL (0.2-1.0) Aspartate Amino Transf (AST/SGOT) 30 U/L (0-35) Alanine Aminotransferase (ALT/SGPT) 32 U/L (12-78) Alkaline Phosphatase 125 U/L (50-136) Total Protein 4.8 g/dL (6.4-8.2) Albumin 1.4 g/dL (3.4-5.0) Globulin 3.4 Albumin/Globulin Ratio 0.411 Test 09/22/20 04:21 09/22/20 05:36 09/22/20 07:42 09/22/20 12:27 Segmented Neutrophils 82 % (31-76) Lymphocytes 4 % (25-36) Monocytes 10 % (3-9) Absolute Eosinophils (Manual) 4 % (1-4) Platelet Estimate SLIGHTLY DECREASED Platelet Morphology NORMAL Bedside Glucose 157 (70 - 110) 140 (70 - 110) Blood Gas Sample Site [facility] Blood Gas pH 7.410 (7.350-7.450) Blood Gas PCO2 48.0 mmHg (35.0-45.0) Blood Gas PO2 66.2 mmHg (80.0-100.0) Blood Gas HCO3 29.7 mmol/L (22.0-26.0) Blood Gas Base Excess 4.3 mmol/L (-2.0-2.0) Abdi Test N/A Arterial Blood Oxygen Saturation 92.9 % (94.0-97.00) Deoxyhemoglobin 7.1 % (0.0-5.0) Carboxyhemoglobin 0.3 % (0.0-3.9) Methemoglobin 0.3 % (0.00-5.0) Total Hemoglobin 12.0 % (12.0-17.8) Total Oxygen Concentration 15.6 % (13.5-17.5) Blood Gas Temperature 37 Oxygen Delivery Method (LAB) VENT Blood Gas Vent Mode ACVC Blood Gas Vent Rate 26 FiO2 70 % (20-101) Blood Gas Tidal Volume 400 ML Blood Gas PEEP 10 CMH2O Total Carbon Dioxide 31.2 mmol/L (23-27) Test 09/22/20 17:10 09/22/20 20:34 09/23/20 00:00 09/23/20 04:30 Bedside Glucose 200 (70 - 110) 157 (70 - 110) 175 (70 - 110) Urine Collection Type VOID Urine Color YELLOW (YELLOW) Urine Appearance CLEAR (CLEAR) Urine Bilirubin NEGATIVE MG/DL (NEGATIVE) Urine Ketones NEGATIVE (NEGATIVE) Urine Specific [place] 1.015 (1.005-1.035) Urine pH 8.5 (5.0-6.0) Urine Protein 30 mg/dL (NEGATIVE) Urine Urobilinogen >=8.0 (NEGATIVE) Urine Nitrate NEGATIVE (NEGATAIVE) Urine Leukocyte Esterase NEGATIVE (NEGATIVE) Urine Blood TRACE (NEGATIVE) Urine RBC 2-5 RBC/HPF (NONE SEEN) Urine WBC 0-2 WBC/HPF (0-2) Urine Bacteria RARE (NONE SEEN) Urine Glucose NEGATIVE (NEGATIVE) Test 09/23/20 04:40 09/23/20 06:27 09/23/20 07:25 09/23/20 10:02 White Blood Count 10.6 10^3/uL (4.5-11.0) Red Blood Count 3.49 10^6/uL (4.50-5.90) Hemoglobin 10.1 g/dL (13.9-16.3) Hematocrit 31.5 % (37.0-53.0) Mean Corpuscular Volume 90.3 fL (78-100) Mean Corpuscular Hemoglobin 28.9 pg (26-34) Mean Corpuscular Hemoglobin Concent 32.1 g/dL (33-36.5) Red Cell Distribution Width 13.3 % (11.5-14.5) Platelet Count 132 10^3/uL (150-400) Mean Platelet Volume 10.5 fL (7.8-11.0) Neutrophils (%) (Auto) 81.1 % (41.0-85.0) Lymphocytes (%) (Auto) 7.6 % (24.0-44.0) Monocytes (%) (Auto) 5.9 % (5.0-12.0) Neutrophils # (Auto) 8.6 10^3/uL (1.8-7.7) Lymphocytes # (Auto) 0.80 10^3/uL1 (1.0-4.8) Monocytes # (Auto) 0.6 10^3/uL (0.3-0.8) Absolute Immature Granulocyte (auto 0.21 10^3 u/L (0-2) Absolute Eosinophils (auto) 0.4 10^3/uL (0.0-0.2) Immature Granulocytes % 2.00 % (0.00-0.50) Eosinophils % 3.3 % (0.0-5.0) Basophils % 0.1 % (0.0-0.2) Basophils # 0.0 10^3/uL (0.0-0.1) Sodium Level 141 mmol/L (132-145) Potassium Level 3.9 mmol/L (3.6-5.2) Chloride Level 100.0 mmol/L (96-109) Carbon Dioxide Level 38.3 mmol/L (20.0-32) Anion Gap 6.6 Blood Urea Nitrogen 18 mg/dL (7-18) Creatinine 0.84 mg/dL (0.59-1.40) Estimated GFR () 111.3 (>/=60) Est GFR (CKD-EPI)(Non-Afr [place]) 92.0 (>/=60) BUN/Creatinine Ratio 21.0 Glucose Level 130 mg/dL (70-110) Calcium Level 8.2 mg/dL (8.4-10.5) Phosphorus Level 2.8 mg/dL (2.5-4.9) Magnesium Level 2.3 mg/dL (1.8-2.4) Total Bilirubin 0.7 mg/dL (0.2-1.0) Aspartate Amino Transf (AST/SGOT) 32 U/L (0-35) Alanine Aminotransferase (ALT/SGPT) 33 U/L (12-78) Alkaline Phosphatase 134 U/L (50-136) Total Protein 5.8 g/dL (6.4-8.2) Albumin 2.5 g/dL (3.4-5.0) Globulin 3.3 Albumin/Globulin Ratio 0.757 Bedside Glucose 154 (70 - 110) 88 (70 - 110) Blood Gas Sample Site [facility] Blood Gas pH 7.421 (7.350-7.450) Blood Gas PCO2 57.2 mmHg (35.0-45.0) Blood Gas PO2 71.7 mmHg (80.0-100.0) Blood Gas HCO3 36.4 mmol/L (22.0-26.0) Blood Gas Base Excess 9.8 mmol/L (-2.0-2.0) Abdi Test N/A Arterial Blood Oxygen Saturation 93.6 % (94.0-97.00) Deoxyhemoglobin 6.3 % (0.0-5.0) Carboxyhemoglobin 0.9 % (0.0-3.9) Methemoglobin 0.4 % (0.00-5.0) Total Hemoglobin 13.8 % (12.0-17.8) Total Oxygen Concentration 17.9 % (13.5-17.5) Blood Gas Temperature 37 Oxygen Delivery Method (LAB) VENT Blood Gas Vent Mode ACVC+ Blood Gas Vent Rate 26 FiO2 70 % (20-101) Blood Gas Tidal Volume 400 ML Blood Gas PEEP 10 CMH2O Total Carbon Dioxide 38.1 mmol/L (23-27) Test 09/23/20 13:30 09/23/20 17:15 09/23/20 21:49 09/23/20 23:49 Bedside Glucose 166 (70 - 110) 86 (70 - 110) 181 (70 - 110) 153 (70 - 110) Test 09/24/20 03:46 09/24/20 06:26 09/24/20 09:19 09/24/20 10:11 White Blood Count 8.3 10^3/uL (4.5-11.0) Red Blood Count 3.40 10^6/uL (4.50-5.90) Hemoglobin 10.0 g/dL (13.9-16.3) Hematocrit 30.6 % (37.0-53.0) Mean Corpuscular Volume 90.0 fL (78-100) Mean Corpuscular Hemoglobin 29.4 pg (26-34) Mean Corpuscular Hemoglobin Concent 32.7 g/dL (33-36.5) Red Cell Distribution Width 13.6 % (11.5-14.5) Platelet Count 145 10^3/uL (150-400) Mean Platelet Volume 10.9 fL (7.8-11.0) Neutrophils (%) (Auto) 71.0 % (41.0-85.0) Lymphocytes (%) (Auto) 14.0 % (24.0-44.0) Monocytes (%) (Auto) 5.7 % (5.0-12.0) Neutrophils # (Auto) 5.9 10^3/uL (1.8-7.7) Lymphocytes # (Auto) 1.16 10^3/uL1 (1.0-4.8) Monocytes # (Auto) 0.5 10^3/uL (0.3-0.8) Absolute Immature Granulocyte (auto 0.31 10^3 u/L (0-2) Absolute Eosinophils (auto) 0.4 10^3/uL (0.0-0.2) Immature Granulocytes % 3.70 % (0.00-0.50) Eosinophils % 5.2 % (0.0-5.0) Basophils % 0.4 % (0.0-0.2) Basophils # 0.0 10^3/uL (0.0-0.1) D-Dimer 5.22 mg/L (0.19-0.49) Sodium Level 142 mmol/L (132-145) Potassium Level 3.6 mmol/L (3.6-5.2) Chloride Level 102.0 mmol/L (96-109) Carbon Dioxide Level 38.9 mmol/L (20.0-32) Anion Gap 4.7 Blood Urea Nitrogen 16 mg/dL (7-18) Creatinine 0.72 mg/dL (0.59-1.40) Estimated GFR () 133.0 (>/=60) Est GFR (CKD-EPI)(Non-Afr [place]) 109.9 (>/=60) BUN/Creatinine Ratio 22.0 Glucose Level 93 mg/dL (70-110) Calcium Level 8.2 mg/dL (8.4-10.5) Phosphorus Level 3.7 mg/dL (2.5-4.9) Magnesium Level 2.2 mg/dL (1.8-2.4) Ferritin 644 ng/mL (26-388) Total Bilirubin 0.5 mg/dL (0.2-1.0) Aspartate Amino Transf (AST/SGOT) 28 U/L (0-35) Alanine Aminotransferase (ALT/SGPT) 33 U/L (12-78) Alkaline Phosphatase 128 U/L (50-136) Lactate Dehydrogenase 195 U/L (85-227) Total Creatine Kinase 49 U/L (39-308) C-Reactive Protein 15.29 mg/dL (0.00-5.00) Total Protein 5.6 g/dL (6.4-8.2) Albumin 2.0 g/dL (3.4-5.0) Globulin 3.6 Albumin/Globulin Ratio 0.555 Procalcitonin 0.83 ng/mL (0.05-0.5) Bedside Glucose 102 (70 - 110) 76 (70 - 110) Blood Gas Sample Site [facility] Blood Gas pH 7.432 (7.350-7.450) Blood Gas PCO2 61.8 mmHg (35.0-45.0) Blood Gas PO2 67.0 mmHg (80.0-100.0) Blood Gas HCO3 40.3 mmol/L (22.0-26.0) Blood Gas Base Excess 13.6 mmol/L (-2.0-2.0) Abdi Test N/A Arterial Blood Oxygen Saturation 92.6 % (94.0-97.00) Deoxyhemoglobin 7.3 % (0.0-5.0) Carboxyhemoglobin 0.4 % (0.0-3.9) Methemoglobin 0.4 % (0.00-5.0) Total Hemoglobin 11.9 % (12.0-17.8) Total Oxygen Concentration 15.4 % (13.5-17.5) Oxygen Delivery Method (LAB) MV Blood Gas Vent Mode ACVC+ Blood Gas Vent Rate 26 FiO2 70 % (20-101) Blood Gas Tidal Volume 400 ML Blood Gas PEEP 10.0 CMH2O Total Carbon Dioxide 42.2 mmol/L (23-27) Test 09/24/20 13:57 09/24/20 18:07 09/24/20 23:49 09/25/20 04:00 Bedside Glucose 127 (70 - 110) 157 (70 - 110) 127 (70 - 110) White Blood Count 9.6 10^3/uL (4.5-11.0) Red Blood Count 3.75 10^6/uL (4.50-5.90) Hemoglobin 10.8 g/dL (13.9-16.3) Hematocrit 34.1 % (37.0-53.0) Mean Corpuscular Volume 90.9 fL (78-100) Mean Corpuscular Hemoglobin 28.8 pg (26-34) Mean Corpuscular Hemoglobin Concent 31.7 g/dL (33-36.5) Red Cell Distribution Width 13.7 % (11.5-14.5) Platelet Count 171 10^3/uL (150-400) Mean Platelet Volume 11.2 fL (7.8-11.0) Neutrophils (%) (Auto) 67.5 % (41.0-85.0) Lymphocytes (%) (Auto) 15.1 % (24.0-44.0) Monocytes (%) (Auto) 4.0 % (5.0-12.0) Neutrophils # (Auto) 6.5 10^3/uL (1.8-7.7) Lymphocytes # (Auto) 1.45 10^3/uL1 (1.0-4.8) Monocytes # (Auto) 0.4 10^3/uL (0.3-0.8) Absolute Immature Granulocyte (auto 0.58 10^3 u/L (0-2) Absolute Eosinophils (auto) 0.7 10^3/uL (0.0-0.2) Immature Granulocytes % 6.10 % (0.00-0.50) Eosinophils % 7.0 % (0.0-5.0) Basophils % 0.3 % (0.0-0.2) Basophils # 0.0 10^3/uL (0.0-0.1) Sodium Level 141 mmol/L (132-145) Potassium Level 4.4 mmol/L (3.6-5.2) Chloride Level 101.0 mmol/L (96-109) Carbon Dioxide Level 37.2 mmol/L (20.0-32) Anion Gap 7.2 Blood Urea Nitrogen 20 mg/dL (7-18) Creatinine 0.90 mg/dL (0.59-1.40) Estimated GFR () 102.8 (>/=60) Est GFR (CKD-EPI)(Non-Afr [place]) 85.0 (>/=60) BUN/Creatinine Ratio 22.0 Glucose Level 149 mg/dL (70-110) Calcium Level 8.6 mg/dL (8.4-10.5) Phosphorus Level 5.6 mg/dL (2.5-4.9) Magnesium Level 2.4 mg/dL (1.8-2.4) Total Bilirubin 0.4 mg/dL (0.2-1.0) Aspartate Amino Transf (AST/SGOT) 28 U/L (0-35) Alanine Aminotransferase (ALT/SGPT) 31 U/L (12-78) Alkaline Phosphatase 135 U/L (50-136) Total Protein 6.0 g/dL (6.4-8.2) Albumin 2.0 g/dL (3.4-5.0) Globulin 4.0 Albumin/Globulin Ratio 0.500 Test 09/25/20 05:45 09/25/20 07:42 09/25/20 11:30 09/25/20 17:53 Bedside Glucose 160 (70 - 110) 171 (70 - 110) 99 (70 - 110) Blood Gas Sample Site [place] Blood Gas pH 7.417 (7.350-7.450) Blood Gas PCO2 52.9 mmHg (35.0-45.0) Blood Gas PO2 77.6 mmHg (80.0-100.0) Blood Gas HCO3 33.3 mmol/L (22.0-26.0) Blood Gas Base Excess 7.3 mmol/L (-2.0-2.0) Abdi Test N/A Arterial Blood Oxygen Saturation 95.4 % (94.0-97.00) Deoxyhemoglobin 4.6 % (0.0-5.0) Carboxyhemoglobin 0.6 % (0.0-3.9) Methemoglobin 0.3 % (0.00-5.0) Total Hemoglobin 13.0 % (12.0-17.8) Total Oxygen Concentration 17.3 % (13.5-17.5) Blood Gas Temperature 37 Oxygen Delivery Method (LAB) VENT Blood Gas Vent Mode ACVC Blood Gas Vent Rate 26 FiO2 85 % (20-101) Blood Gas Tidal Volume 400 ML Blood Gas PEEP 10 CMH2O Total Carbon Dioxide 34.9 mmol/L (23-27) Test 09/26/20 00:57 09/26/20 04:10 09/26/20 04:45 09/26/20 06:44 Bedside Glucose 201 (70 - 110) 156 (70 - 110) White Blood Count 9.2 10^3/uL (4.5-11.0) Red Blood Count 3.64 10^6/uL (4.50-5.90) Hemoglobin 10.6 g/dL (13.9-16.3) Hematocrit 32.7 % (37.0-53.0) Mean Corpuscular Volume 89.8 fL (78-100) Mean Corpuscular Hemoglobin 29.1 pg (26-34) Mean Corpuscular Hemoglobin Concent 32.4 g/dL (33-36.5) Red Cell Distribution Width 13.6 % (11.5-14.5) Platelet Count 192 10^3/uL (150-400) Mean Platelet Volume 10.7 fL (7.8-11.0) Sodium Level 139 mmol/L (132-145) Potassium Level 4.5 mmol/L (3.6-5.2) Chloride Level 101.0 mmol/L (96-109) Carbon Dioxide Level 34.9 mmol/L (20.0-32) Anion Gap 7.6 Blood Urea Nitrogen 18 mg/dL (7-18) Creatinine 0.85 mg/dL (0.59-1.40) Estimated GFR () 109.8 (>/=60) Est GFR (CKD-EPI)(Non-Afr [place]) 90.7 (>/=60) BUN/Creatinine Ratio 21.0 Glucose Level 152 mg/dL (70-110) Calcium Level 9.0 mg/dL (8.4-10.5) Phosphorus Level 4.4 mg/dL (2.5-4.9) Total Bilirubin 0.3 mg/dL (0.2-1.0) Aspartate Amino Transf (AST/SGOT) 31 U/L (0-35) Alanine Aminotransferase (ALT/SGPT) 26 U/L (12-78) Alkaline Phosphatase 139 U/L (50-136) Total Protein 6.2 g/dL (6.4-8.2) Albumin 2.0 g/dL (3.4-5.0) Globulin 4.2 Albumin/Globulin Ratio 0.476 Magnesium Level 2.4 mg/dL (1.8-2.4) Test 09/26/20 07:51 09/26/20 12:07 09/26/20 17:51 09/27/20 00:28 Blood Gas Sample Site [facility] Blood Gas pH 7.424 (7.350-7.450) Blood Gas PCO2 53.4 mmHg (35.0-45.0) Blood Gas PO2 73.1 mmHg (80.0-100.0) Blood Gas HCO3 34.2 mmol/L (22.0-26.0) Blood Gas Base Excess 8.3 mmol/L (-2.0-2.0) Abdi Test N/A Arterial Blood Oxygen Saturation 93.9 % (94.0-97.00) Deoxyhemoglobin 6.0 % (0.0-5.0) Carboxyhemoglobin 0.8 % (0.0-3.9) Methemoglobin 0.4 % (0.00-5.0) Total Hemoglobin 12.3 % (12.0-17.8) Total Oxygen Concentration 16.1 % (13.5-17.5) Oxygen Delivery Method (LAB) MV Blood Gas Vent Mode ACVC+ Blood Gas Vent Rate 26 FiO2 70 % (20-101) Blood Gas Tidal Volume 400 ML Blood Gas PEEP 10.0 CMH2O Total Carbon Dioxide 35.8 mmol/L (23-27) Bedside Glucose 155 (70 - 110) 144 (70 - 110) 219 (70 - 110) Test 09/27/20 04:08 09/27/20 05:52 09/27/20 06:30 09/27/20 07:24 White Blood Count 10.7 10^3/uL (4.5-11.0) Red Blood Count 3.75 10^6/uL (4.50-5.90) Hemoglobin 10.9 g/dL (13.9-16.3) Hematocrit 33.5 % (37.0-53.0) Mean Corpuscular Volume 89.3 fL (78-100) Mean Corpuscular Hemoglobin 29.1 pg (26-34) Mean Corpuscular Hemoglobin Concent 32.5 g/dL (33-36.5) Red Cell Distribution Width 13.5 % (11.5-14.5) Platelet Count 232 10^3/uL (150-400) Mean Platelet Volume 10.5 fL (7.8-11.0) Sodium Level 136 mmol/L (132-145) Potassium Level 4.7 mmol/L (3.6-5.2) Chloride Level 98.0 mmol/L (96-109) Carbon Dioxide Level 34.8 mmol/L (20.0-32) Anion Gap 7.9 Blood Urea Nitrogen 19 mg/dL (7-18) Creatinine 0.78 mg/dL (0.59-1.40) Estimated GFR () 121.3 (>/=60) Est GFR (CKD-EPI)(Non-Afr [place]) 100.2 (>/=60) BUN/Creatinine Ratio 24.0 Glucose Level 154 mg/dL (70-110) Calcium Level 8.7 mg/dL (8.4-10.5) Phosphorus Level 4.2 mg/dL (2.5-4.9) Magnesium Level 2.3 mg/dL (1.8-2.4) Total Bilirubin 0.3 mg/dL (0.2-1.0) Aspartate Amino Transf (AST/SGOT) 30 U/L (0-35) Alanine Aminotransferase (ALT/SGPT) 23 U/L (12-78) Alkaline Phosphatase 143 U/L (50-136) Total Protein 6.7 g/dL (6.4-8.2) Albumin 2.1 g/dL (3.4-5.0) Globulin 4.6 Albumin/Globulin Ratio 0.456 Bedside Glucose 187 (70 - 110) Urine Collection Type UNKNOWN Urine Color YELLOW (YELLOW) Urine Appearance CLEAR (CLEAR) Urine Bilirubin NEGATIVE MG/DL (NEGATIVE) Urine Ketones NEGATIVE (NEGATIVE) Urine Specific [place] 1.010 (1.005-1.035) Urine pH 6.5 (5.0-6.0) Urine Protein TRACE (NEGATIVE) Urine Urobilinogen 2.0 (NEGATIVE) Urine Nitrate NEGATIVE (NEGATAIVE) Urine Leukocyte Esterase NEGATIVE (NEGATIVE) Urine Blood NEGATIVE (NEGATIVE) Urine RBC 5-10 RBC/HPF (NONE SEEN) Urine WBC 5-10 WBC/HPF (0-2) Urine Squamous Epithelial Cells RARE #/HPF (FEW) Urine Bacteria FEW (NONE SEEN) Urine Glucose NORMAL (NEGATIVE) Blood Gas Sample Site [place] Blood Gas pH 7.396 (7.350-7.450) Blood Gas PCO2 47.5 mmHg (35.0-45.0) Blood Gas PO2 81.3 mmHg (80.0-100.0) Blood Gas HCO3 28.5 mmol/L (22.0-26.0) Blood Gas Base Excess 3.0 mmol/L (-2.0-2.0) Abdi Test N/A Arterial Blood Oxygen Saturation 95.2 % (94.0-97.00) Deoxyhemoglobin 4.7 % (0.0-5.0) Carboxyhemoglobin 0.8 % (0.0-3.9) Methemoglobin 0.4 % (0.00-5.0) Total Hemoglobin 11.9 % (12.0-17.8) Total Oxygen Concentration 15.8 % (13.5-17.5) Blood Gas Temperature 37 Oxygen Delivery Method (LAB) VENT Blood Gas Vent Mode ACVC Blood Gas Vent Rate 24 FiO2 70 % (20-101) Blood Gas Tidal Volume 400 ML Blood Gas PEEP 10 CMH2O Total Carbon Dioxide 30.0 mmol/L (23-27) Test 09/27/20 11:55 09/27/20 17:30 09/28/20 00:12 09/28/20 04:05 Bedside Glucose 181 (70 - 110) 152 (70 - 110) 242 (70 - 110) White Blood Count 16.2 10^3/uL (4.5-11.0) Red Blood Count 3.76 10^6/uL (4.50-5.90) Hemoglobin 11.0 g/dL (13.9-16.3) Hematocrit 33.5 % (37.0-53.0) Mean Corpuscular Volume 89.1 fL (78-100) Mean Corpuscular Hemoglobin 29.3 pg (26-34) Mean Corpuscular Hemoglobin Concent 32.8 g/dL (33-36.5) Red Cell Distribution Width 13.7 % (11.5-14.5) Platelet Count 245 10^3/uL (150-400) Mean Platelet Volume 10.3 fL (7.8-11.0) Neutrophils (%) (Auto) 81.8 % (41.0-85.0) Lymphocytes (%) (Auto) 4.1 % (24.0-44.0) Monocytes (%) (Auto) 4.0 % (5.0-12.0) Neutrophils # (Auto) 13.3 10^3/uL (1.8-7.7) Lymphocytes # (Auto) 0.66 10^3/uL1 (1.0-4.8) Monocytes # (Auto) 0.6 10^3/uL (0.3-0.8) Absolute Immature Granulocyte (auto 1.04 10^3 u/L (0-2) Absolute Eosinophils (auto) 0.6 10^3/uL (0.0-0.2) Immature Granulocytes % 6.40 % (0.00-0.50) Eosinophils % 3.5 % (0.0-5.0) Basophils % 0.2 % (0.0-0.2) Basophils # 0.0 10^3/uL (0.0-0.1) Sodium Level 135 mmol/L (132-145) Potassium Level 4.6 mmol/L (3.6-5.2) Chloride Level 100.0 mmol/L (96-109) Carbon Dioxide Level 28.8 mmol/L (20.0-32) Anion Gap 10.8 Blood Urea Nitrogen 19 mg/dL (7-18) Creatinine 0.84 mg/dL (0.59-1.40) Estimated GFR () 111.3 (>/=60) Est GFR (CKD-EPI)(Non-Afr [place]) 92.0 (>/=60) BUN/Creatinine Ratio 22.0 Glucose Level 166 mg/dL (70-110) Calcium Level 8.9 mg/dL (8.4-10.5) Total Bilirubin 0.5 mg/dL (0.2-1.0) Aspartate Amino Transf (AST/SGOT) 33 U/L (0-35) Alanine Aminotransferase (ALT/SGPT) 22 U/L (12-78) Alkaline Phosphatase 134 U/L (50-136) Total Protein 6.7 g/dL (6.4-8.2) Albumin 2.0 g/dL (3.4-5.0) Globulin 4.7 Albumin/Globulin Ratio 0.425 Test 09/28/20 06:06 09/28/20 06:16 09/28/20 07:22 09/28/20 11:45 Bedside Glucose 188 (70 - 110) 149 (70 - 110) Differential Total Cells Counted 100 #CELLS Segmented Neutrophils 78 % (31-76) Band Neutrophils 5 % (2-6) Lymphocytes 4 % (25-36) Monocytes 5 % (3-9) Absolute Eosinophils (Manual) 8 % (1-4) Platelet Estimate ADEQUATE Platelet Morphology NORMAL Macrocytosis 1+ (NEGATIVE) Blood Gas Sample Site [place] Blood Gas pH 7.411 (7.350-7.450) Blood Gas PCO2 45.7 mmHg (35.0-45.0) Blood Gas PO2 74.5 mmHg (80.0-100.0) Blood Gas HCO3 28.4 mmol/L (22.0-26.0) Blood Gas Base Excess 3.2 mmol/L (-2.0-2.0) Abdi Test N/A Arterial Blood Oxygen Saturation 94.6 % (94.0-97.00) Deoxyhemoglobin 5.4 % (0.0-5.0) Carboxyhemoglobin 0.3 % (0.0-3.9) Methemoglobin 0.2 % (0.00-5.0) Total Hemoglobin 11.2 % (12.0-17.8) Total Oxygen Concentration 14.9 % (13.5-17.5) Blood Gas Temperature 37 Oxygen Delivery Method (LAB) VENT Blood Gas Vent Mode ACVC+ Blood Gas Vent Rate 24 FiO2 70 % (20-101) Blood Gas Tidal Volume 400 ML Blood Gas PEEP 10 CMH2O Total Carbon Dioxide 29.8 mmol/L (23-27) Test 09/28/20 17:32 09/28/20 19:56 09/28/20 23:54 09/29/20 04:17 Bedside Glucose 121 (70 - 110) 187 (70 - 110) Vancomycin Level Trough 22.0 ug/mL (5.00-10.0) White Blood Count 13.8 10^3/uL (4.5-11.0) Red Blood Count 3.67 10^6/uL (4.50-5.90) Hemoglobin 10.6 g/dL (13.9-16.3) Hematocrit 32.7 % (37.0-53.0) Mean Corpuscular Volume 89.1 fL (78-100) Mean Corpuscular Hemoglobin 28.9 pg (26-34) Mean Corpuscular Hemoglobin Concent 32.4 g/dL (33-36.5) Red Cell Distribution Width 13.7 % (11.5-14.5) Platelet Count 295 10^3/uL (150-400) Mean Platelet Volume 10.5 fL (7.8-11.0) D-Dimer 3.52 mg/L (0.19-0.49) Sodium Level 137 mmol/L (132-145) Potassium Level 3.9 mmol/L (3.6-5.2) Chloride Level 101.0 mmol/L (96-109) Carbon Dioxide Level 32.2 mmol/L (20.0-32) Anion Gap 7.7 Blood Urea Nitrogen 21 mg/dL (7-18) Creatinine 0.66 mg/dL (0.59-1.40) Estimated GFR () 147.0 (>/=60) Est GFR (CKD-EPI)(Non-Afr [place]) 121.5 (>/=60) BUN/Creatinine Ratio 31.0 Glucose Level 146 mg/dL (70-110) Calcium Level 8.3 mg/dL (8.4-10.5) Phosphorus Level 3.1 mg/dL (2.5-4.9) Magnesium Level 2.1 mg/dL (1.8-2.4) Ferritin 1357 ng/mL (26-388) Total Bilirubin 0.4 mg/dL (0.2-1.0) Aspartate Amino Transf (AST/SGOT) 31 U/L (0-35) Alanine Aminotransferase (ALT/SGPT) 22 U/L (12-78) Alkaline Phosphatase 122 U/L (50-136) Lactate Dehydrogenase 249 U/L (85-227) C-Reactive Protein 20.04 mg/dL (0.00-5.00) Pro-B-Type Natriuretic Peptide 3749 pg/mL (0-125) Total Protein 6.5 g/dL (6.4-8.2) Albumin 1.9 g/dL (3.4-5.0) Globulin 4.6 Albumin/Globulin Ratio 0.413 Procalcitonin 1.29 ng/mL (0.05-0.5) Test 09/29/20 05:52 09/29/20 07:00 09/29/20 12:04 09/29/20 18:09 Bedside Glucose 198 (70 - 110) 155 (70 - 110) 77 (70 - 110) Blood Gas Sample Site [place] Blood Gas pH 7.380 (7.350-7.450) Blood Gas PCO2 46.8 mmHg (35.0-45.0) Blood Gas PO2 90.2 mmHg (80.0-100.0) Blood Gas HCO3 27.1 mmol/L (22.0-26.0) Blood Gas Base Excess 1.5 mmol/L (-2.0-2.0) Abdi Test N/A Arterial Blood Oxygen Saturation 96.7 % (94.0-97.00) Deoxyhemoglobin 3.3 % (0.0-5.0) Carboxyhemoglobin 0.6 % (0.0-3.9) Methemoglobin 0.3 % (0.00-5.0) Total Hemoglobin 10.8 % (12.0-17.8) Total Oxygen Concentration 14.7 % (13.5-17.5) Blood Gas Temperature 37 Blood Gas Vent Mode AC FiO2 70 % (20-101) Total Carbon Dioxide 28.5 mmol/L (23-27) Test 09/29/20 23:52 09/30/20 04:57 09/30/20 06:08 09/30/20 07:44 Bedside Glucose 212 (70 - 110) 214 (70 - 110) White Blood Count 11.0 10^3/uL (4.5-11.0) Red Blood Count 3.46 10^6/uL (4.50-5.90) Hemoglobin 10.0 g/dL (13.9-16.3) Hematocrit 30.8 % (37.0-53.0) Mean Corpuscular Volume 89.0 fL (78-100) Mean Corpuscular Hemoglobin 28.9 pg (26-34) Mean Corpuscular Hemoglobin Concent 32.5 g/dL (33-36.5) Red Cell Distribution Width 13.9 % (11.5-14.5) Platelet Count 369 10^3/uL (150-400) Mean Platelet Volume 10.4 fL (7.8-11.0) Neutrophils (%) (Auto) 65.5 % (41.0-85.0) Lymphocytes (%) (Auto) 12.0 % (24.0-44.0) Monocytes (%) (Auto) 5.6 % (5.0-12.0) Neutrophils # (Auto) 7.2 10^3/uL (1.8-7.7) Lymphocytes # (Auto) 1.32 10^3/uL1 (1.0-4.8) Monocytes # (Auto) 0.6 10^3/uL (0.3-0.8) Absolute Immature Granulocyte (auto 0.71 10^3 u/L (0-2) Absolute Eosinophils (auto) 1.1 10^3/uL (0.0-0.2) Immature Granulocytes % 6.50 % (0.00-0.50) Eosinophils % 10.1 % (0.0-5.0) Basophils % 0.3 % (0.0-0.2) Basophils # 0.0 10^3/uL (0.0-0.1) Sodium Level 135 mmol/L (132-145) Potassium Level 4.0 mmol/L (3.6-5.2) Chloride Level 100.0 mmol/L (96-109) Carbon Dioxide Level 29.1 mmol/L (20.0-32) Anion Gap 9.9 Blood Urea Nitrogen 24 mg/dL (7-18) Creatinine 0.74 mg/dL (0.59-1.40) Estimated GFR () 128.8 (>/=60) Est GFR (CKD-EPI)(Non-Afr [place]) 106.5 (>/=60) BUN/Creatinine Ratio 32.0 Glucose Level 242 mg/dL (70-110) Calcium Level 8.7 mg/dL (8.4-10.5) Total Bilirubin 0.4 mg/dL (0.2-1.0) Aspartate Amino Transf (AST/SGOT) 29 U/L (0-35) Alanine Aminotransferase (ALT/SGPT) 20 U/L (12-78) Alkaline Phosphatase 116 U/L (50-136) Total Protein 6.4 g/dL (6.4-8.2) Albumin 1.7 g/dL (3.4-5.0) Globulin 4.7 Albumin/Globulin Ratio 0.361 Blood Gas Sample Site [place] Blood Gas pH 7.388 (7.350-7.450) Blood Gas PCO2 45.8 mmHg (35.0-45.0) Blood Gas PO2 65.3 mmHg (80.0-100.0) Blood Gas HCO3 27.0 mmol/L (22.0-26.0) Blood Gas Base Excess 1.6 mmol/L (-2.0-2.0) Abdi Test N/A Arterial Blood Oxygen Saturation 92.4 % (94.0-97.00) Deoxyhemoglobin 7.6 % (0.0-5.0) Carboxyhemoglobin 0.3 % (0.0-3.9) Methemoglobin 0.1 % (0.00-5.0) Total Hemoglobin 11.2 % (12.0-17.8) Total Oxygen Concentration 14.5 % (13.5-17.5) Blood Gas Temperature 37 Oxygen Delivery Method (LAB) VENT Blood Gas Vent Mode ACVC Blood Gas Vent Rate 24 FiO2 50 % (20-101) Blood Gas Tidal Volume 400 ML Blood Gas PEEP 8 CMH2O Total Carbon Dioxide 28.4 mmol/L (23-27) Microbiology Date/Time Source Procedure Growth Status 09/27/20 06:30 Urine,Catheterized Urine Culture - Final Complete 09/23/20 06:09 Sputum Endotracheal Wash Gram Stain - Final Complete 09/23/20 06:09 Sputum Culture - Final Enterobacter Aerogenes Complete 09/23/20 04:45 Blood Blood Culture - Final NO GROWTH AFTER 5 DAYS Complete 09/23/20 04:40 Blood Blood Culture - Final NO GROWTH AFTER 5 DAYS Complete 09/23/20 04:30 Urine,[place] Urine Culture - Final Complete ASSESSMENT & PLAN This is a critical care note documentation for the bedside evaluation and management and therapeutic intervention for this critically ill patient.Patient with COVID-19 bilateral pneumonia with acute respiratory failure. Patient is getting worse with time. Has become unstable with hypotensive shock requiring Levophed. Patient's family including the daughter updated in detail over the phone initially later on family meeting held with multiple children including the daughter Nelson.After showing all the reports and x-ray films since admission to the family I had given them the final report that the patient has been deteriorating progressively and is almost at the point that he may have to have a tracheostomy if he wanted to continue with the ventilator. Considering the fact that he has been in the hospital for about 27 days and has been getting worse without any improvement as well as now requiring pressor support with Levophed. Carries a very poor prognosis. After multiple discussions with all the family members and [place] of [place] the family decided for making the patient DNR and comfort measures. Pressors will be stopped. Comfort measures initiated and implemented. CODE STATUS changed to DNR. Critical care time spent with the patient and the family is 43 minutes majority of the time was [id number] and at bedside. JOSE G CARVAJAL MD Sep 30, 2020 12:19
--- NOTE | 2020-09-30 12:30 | NUR ---
Family ready to withdraw care. Discontinued Levophed drip, RT at bedside, deflated cuff, suction at reach, removed endotracheal tube and placed 1 liter nasal cannula on patient.
--- NOTE | 2020-09-30 12:58 | NUR ---
Time of 1258 09/30/2020. [address]ified Dr. Soto. 1303 Notified [facility], Case #[id number] 1309 home notified [facility] [phone]
--- NOTE | 2020-09-30 13:04 | PCM.DCS ---
SUMMARY SUMMARY Patient suffering from severe worsening respiratory failure due to COVID-19 and now hemodynamically unstable and hypotensive shock. After family discussions patient was declared DNR and terminally extubated for comfort measures. Patient at 1258 and pronounced at the same time JOSE G CARVAJAL MD Sep 30, 2020 13:04
--- NOTE | 2020-09-30 13:58 | NUR ---
Patient discharged via bed by maintenance to [facility] for home pick up operator. home notified
== END 2020-09-30 12:58 | disposition expired | DRG 870 ==
LOC: MS 16:52 → ICU 09-11 03:30 → EDPENDDISTM 09-30 12:58 → EDPENDDISDT 09-30 12:58
PROVIDERS: ADMIT Hospitalist; ATTEND Hospitalist
PROC: XW033E5 Introduction of Remdesivir Anti-infective into Peripheral Vein, Percutaneous Approach, New Technology Group 5 (ICD-10-PCS; 2020-09-07)
PROC: 5A09357 Assistance with Respiratory Ventilation, Less than 24 Consecutive Hours, Continuous Positive Airway Pressure (ICD-10-PCS; 2020-09-10)
PROC: 5A09357 Assistance with Respiratory Ventilation, Less than 24 Consecutive Hours, Continuous Positive Airway Pressure (ICD-10-PCS; 2020-09-12)
PROC: 5A1955Z Respiratory Ventilation, Greater than 96 Consecutive Hours (ICD-10-PCS; principal; 2020-09-13)
PROC: 5A09357 Assistance with Respiratory Ventilation, Less than 24 Consecutive Hours, Continuous Positive Airway Pressure (ICD-10-PCS; 2020-09-13)
PROC: 0BH17EZ Insertion of Endotracheal Airway into Trachea, Via Natural or Artificial Opening (ICD-10-PCS; 2020-09-13)
PROC: XW13325 Transfusion of Convalescent Plasma (Nonautologous) into Peripheral Vein, Percutaneous Approach, New Technology Group 5 (ICD-10-PCS; 2020-09-13)
PROC: 02HV33Z Insertion of Infusion Device into Superior Vena Cava, Percutaneous Approach (ICD-10-PCS; 2020-09-16)
PROC: B548ZZA Ultrasonography of Superior Vena Cava, Guidance (ICD-10-PCS; 2020-09-16)
DX: A41.9 Sepsis, unspecified organism (principal); U07.1 COVID-19; J12.82 Pneumonia due to coronavirus disease 2019; R65.21 Severe sepsis with septic shock; J15.6 Pneumonia due to other Gram-negative bacteria; G93.41 Metabolic encephalopathy; J96.01 Acute respiratory failure with hypoxia; N17.9 Acute kidney failure, unspecified; Z51.5 Encounter for palliative care; I10 Essential (primary) hypertension; G83.9 Paralytic syndrome, unspecified; E88.09 Other disorders of plasma-protein metabolism, not elsewhere classified; E78.5 Hyperlipidemia, unspecified; E11.649 Type 2 diabetes mellitus with hypoglycemia without coma; D72.10 Eosinophilia, unspecified; I48.91 Unspecified atrial fibrillation; Z66 Do not resuscitate
CPT/HCPCS: 36415; 36569; 36600; 71045; 71046; 71275; 74018; 80048; 80053; 80061; 80202; 81000; 81003; 82140; 82550; 82728; 82803; 82948; 83036; 83605; 83615; 83735; 83880; 84100; 84145; 84478; 84484; 85014; 85018; 85025; 85027; 85049; 85370; 85379; 85610; 85651; 86021; 86038; 86140; 86318; 86900; 87040; 87070; 87077; 87086; 87102; 87186; 87205; 87633; 93005; 94002; 94003; 94660; C9113; G0378; J0131; J0330; J0360; J0456; J0692; J0696; J1100; J1644; J1650; J1815; J1940; J2060; J2250; J2920; J3010; J3370; J3490; J7030; J7040; J7050; J7611; P9017; P9047; Q9965; J3480; Q0144